=== PATIENT | female | born 1945 | race Caucasian/White ===

== ENCOUNTER 2023-03-27 06:43 | Inpatient (IN) | payer MEDICARE, SELFPAY ==
[2023-03-27] VITALS (115 sets, daily range): BP systolic 47–156; BP diastolic 35–98; PULSE 72–104; RESP 10–33; TEMP 36.4–37; O2SAT 69–99; BMI 22.1
--- NOTE | 2023-03-27 07:06 | XR_ITS ---
[facility] [place] [id number] Patient Name: SANCHEZ SAMSON MRN: [id number] date: 1945 Sex: F Assigned Patient Location: ER Current Patient Location: ED.MAIN Accession/Order Number: [id number] Exam Date: 03/27/2023 07:32 Report Date: 03/27/2023 08:30 At the request of: DIA DELAROSA Procedure: XR chest 1V EXAM: XR chest 1V , 03/27/2023 HISTORY: shortness of breath COMPARISON: Chest x-ray from 02/29/2020 TECHNIQUE: Portable AP upright x-ray of the chest. FINDINGS: Infiltrates in the right mid and lower lung, consistent with right lower lobe consolidation. Underlying COPD. Cardiac silhouette within normal limits. Mild atherosclerotic calcification of the thoracic arch. No acute osseous findings. XR/XR chest 1V IMPRESSION: Right lung consolidation predominantly in the lower lobe. Electronically authenticated by: JOLEEN CAMPOS Date: 03/27/2023 08:30
--- NOTE | 2023-03-27 07:06 | ECG_ITS ---
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
--- NOTE | 2023-03-27 07:07 | ED_ITS ---
HPI - SOB/Dyspnea General Chief Complaint: Shortness of Breath/Dyspnea Stated Complaint: sob Time Seen by Provider: 03/27/23 06:55 Source: patient Mode of arrival: Wheelchair Limitations: no limitations History of Present Illness HPI Narrative: Patient brought in by private vehicle - developed shortness of breath and cough last week. She had a home covid test that was positive and her PCP started her on paxlovid. Over the last 24 hours her shortness of breath worsened. She is coughing up thick yellowish phlegm. She denied any chest pain, tightness or pressure. No right LE swelling/edema. She has left leg amputation. She has COPD. Wears oxygen at night when she needs it . Has home inhalers - last used yesterday. Related Data Home Medications Medication Instructions Recorded Confirmed atorvastatin 20 mg tablet 20 mg PO BEDTIME 03/27/23 03/27/23 budesonide-formoterol HFA 160 2 inh inhalation Q12H 03/27/23 03/27/23 mcg-4.5 mcg/actuation aerosol inhaler (Symbicort) carvedilol 3.125 mg tablet 3.125 mg PO Q12H 03/27/23 03/27/23 clopidogrel 75 mg tablet 75 mg PO DAILY 03/27/23 03/27/23 docusate sodium 100 mg capsule 100 mg PO BID 03/27/23 03/27/23 duloxetine 60 mg capsule,delayed 60 mg PO DAILY 03/27/23 03/27/23 release gabapentin 800 mg tablet 800 mg PO TID 03/27/23 03/27/23 lisinopril 2.5 mg tablet 2.5 mg PO DAILY 03/27/23 03/27/23 nitroglycerin 0.4 mg sublingual 0.4 mg sublingual Q5M PRN chest 03/27/23 03/27/23 tablet pain oxycodone 10 mg tablet 10 mg PO PRN pain 03/27/23 pantoprazole 40 mg tablet,delayed 40 mg PO DAILY 03/27/23 03/27/23 release spironolactone 25 mg tablet 25 mg PO DAILY 03/27/23 03/27/23 Allergies Allergy/AdvReac Type Severity Reaction Status Date / Time No Known Drug Allergies Allergy Verified 03/27/23 07:02 PFSH PFS Social History Smoking status: Former smoker Exam Narrative Exam Narrative: Nurses notes and vital signs reviewed and patient is not hypoxic. afebrile General: Tachypneic Skin: Warm, dry, no pallor noted. No rash. Head: Normocephalic, atraumatic. Eye: Pupils are equal, round and EOMI. No scleral icterus. Cardiovascular: Tachcyardia Respiratory: Tachypnea with accessory muscle use and mild respiratory distress. Lungs with diffuse expiratory wheezing. Wet cough. Musculoskeletal: Left leg amputation. Right LE - normal ROM, no calf or popliteal tenderness, no lower extremity edema/swelling GI: Abdomen is soft, non-distended. Normal bowel sounds. No tenderness to palpation. No rebound, guarding, or rigidity noted. Neurological: A&O x4. No cranial nerve dysfunction observed. No truncal ataxia. Moves all extremities. Sensation intact. Psychiatric: Cooperative and interactive. Normal mood and affect. Constitutional Vital Signs, click to edit/add: Last Vital Signs Temp 97.9 F 03/27/23 06:50 Pulse 86 03/27/23 08:23 Resp 24 03/27/23 08:23 BP 143/77 H 03/27/23 08:23 Pulse Ox 93 L 03/27/23 08:23 O2 Del Method Nonrebreather 03/27/23 07:26 O2 Flow Rate 15 03/27/23 06:50 Course Vital Signs Vital signs: Vital Signs Temperature 97.9 F 03/27/23 06:50 Pulse Rate 102 H 03/27/23 06:50 Respiratory Rate 28 H 03/27/23 06:50 Blood Pressure 122/60 03/27/23 06:50 Pulse Oximetry 84 L 03/27/23 06:50 Oxygen Delivery Method Nonrebreather 03/27/23 06:50 Oxygen Delivery Flow Rate 15 03/27/23 06:50 Temperature 97.9 F 03/27/23 06:50 Pulse Rate 86 03/27/23 08:23 Respiratory Rate 24 03/27/23 08:23 Blood Pressure 143/77 H 03/27/23 08:23 Pulse Oximetry 93 L 03/27/23 08:23 Oxygen Delivery Method Nonrebreather 03/27/23 07:26 Oxygen Delivery Flow Rate 15 03/27/23 06:50 MDM - SOB/Dyspnea MDM Narrative Medical decision making narrative: Patient was placed on quality assurance monitor final and EKG obtained. Blood drawn and sent for evaluation, including blood cultures and lactate. CXR obtained. She was given duoneb therapy and suctioned. She was initially placed on vapotherm but we could not maintain good O2 sat so we switched her to BiPap. Patient tested positive for Covid. CXR revealed multifocal pneumonia. Lactate elevated. She was given IV Rocephin and IV Levaquin. Her BP dipped - I was initially cautious regarding fluid administration after I saw her CXR and waited to get her BNP back before administering 30mL/kg of NS IVF. Case discussed with Dr Spence, home mission worker for admissions, and the patient was admitted to ICU, inpatient. Patient and family informed of results, disposition and plan. Lab Data Attestation: I reviewed the patient's lab results. Labs: Lab Results 03/27/23 03/27/23 Range/Units 07:24 07:30 WBC 19.2 H (4.0-11.0) 10^3/uL RBC 3.90 L (4.20-5.40) 10^6/uL Hgb 12.7 (12.0-16.0) g/dL Hct 39.9 (36.0-48.0) % MCV 102.3 H (81.0-99.0) fL MCH 32.6 (26.7-34.0) pg MCHC 31.8 (29.9-35.2) g/dL RDW 13.0 (11.0-15.0) % Plt Count 285 (150-450) 10^3/uL MPV 10.3 (9.5-13.5) fL Seg Neuts % (Manual) 66.0 Band Neutrophils % 16.0 H (0-5) % Lymphocytes % (Manual) 7.0 L (20.5-60.0) % Monocytes % (Manual) 11.0 (1.7-12.0) % Eosinophils % (Manual) 0.0 L (0.9-7.0) % Basophils % (Manual) 0.0 L (0.2-2.0) % Neutrophils # (Manual) 12.67 H (1.4-6.5) 10^3/uL Band Neutrophils # 3.1 H (0.0-0.3) 10^3/uL Lymphocytes # (Manual) 1.34 (1.20-3.80) 10^3/uL Monocytes # (Manual) 2.11 H (0.30-0.80) 10^3/uL Eosinophils # (Manual) 0.00 (0.00-0.70) 10^3/uL Basophils # (Manual) 0.00 (0.00-0.10) 10^3/uL Sodium 130 L (136-145) mmol/L Potassium 4.5 (3.5-5.1) mmol/L Chloride 95 L (98-107) mmol/L Carbon Dioxide 23.3 (21.0-32.0) mmol/L Anion Gap 16.2 BUN 35.0 H (7.0-18.0) mg/dL Creatinine 1.33 H (0.55-1.02) mg/dL Est GFR ( Amer) 46 L (>=60) Est GFR (Non-Af Amer) 38 L (>=60) BUN/Creatinine Ratio 26.3 Glucose 120 H (74-106) mg/dL Lactate 3.0 H* (0.4-2.0) mmol/L Calcium 8.0 L (8.5-10.1) mg/dL Troponin I High Sens 11.6 (4.0-51.3) pg/mL NT-Pro-B Natriuret Pep 1102.0 (<=1800.0) pg/mL SARS-CoV-2 (PCR) Positive A (NEGATIVE) Imaging Data Chest x-ray: Radiologist's impression: Patient Name: SANCHEZ SAMSON MRN: [facility]:[id number] date: 1945 Sex: F Assigned Patient Location: ER Current Patient Location: ED.MAIN Accession/Order Number: [id number] Exam Date: 03/27/2023 07:32 Report Date: 03/27/2023 08:30 At the request of: DIA DELAROSA Procedure: XR chest 1V EXAM: XR chest 1V , 03/27/2023 HISTORY: shortness of breath COMPARISON: Chest x-ray from 02/29/2020 TECHNIQUE: Portable AP upright x-ray of the chest. FINDINGS: Infiltrates in the right mid and lower lung, consistent with right lower lobe consolidation. Underlying COPD. Cardiac silhouette within normal limits. Mild atherosclerotic calcification of the thoracic arch. No acute osseous findings. IMPRESSION: Right lung consolidation predominantly in the lower lobe. Electronically authenticated by: JOLEEN CAMPOS Date: 03/27/2023 08:30 ECG Data Attestation: I personally reviewed and interpreted this ECG as follows: Interpretation: EKG interpretation: Emergency Department physician interpretation. Normal sinus rhythm at 91bpm. Artifact present. Normal axis, normal intervals and no ST segment elevation or depression. Discharge Plan Discharge Chief Complaint: Shortness of Breath/Dyspnea Clinical Impression: Sepsis, Community acquired pneumonia, COVID Patient Disposition: Admitted As Inpatient Time of Disposition Decision: 08:01
[2023-03-27] MEDS: 0.9 % SODIUM CHLORIDE 250 ML IV.SOLN IV (07:22)
[2023-03-27] MEDS: METHYLPREDNISOLONE SOD SUCC PF 125 MG/2 ML VIAL IVP (07:22)
[2023-03-27 07:35] LABS: Hematocrit 39.9 % (36.0-48.0); Hemoglobin 12.7 g/dL (12.0-16.0); Mean Corpuscular HGB Conc 31.8 g/dL (29.9-35.2); Mean Corpuscular Hemoglobin 32.6 pg (26.7-34.0); Mean Corpuscular Volume 102.3 fL (81.0-99.0); Mean Platelet Volume 10.3 fL (9.5-13.5); Platelet Count 285 10^3/uL (150-450); White Blood Count 19.2 10^3/uL (4.0-11.0)
[2023-03-27 07:52] LABS: SARS-CoV-2 Ag POSITIVE (NEGATIVE)
[2023-03-27 07:59] LABS: Anion Gap 16.2; BUN Creatinine Ratio 26.3; Carbon Dioxide 23.3 mmol/L (21.0-32.0); Chloride 95 mmol/L (98-107); Estimated GFR (African America 46 (>=60); Estimated GFR (Non-African Ame 38 (>=60); Glucose 120 mg/dL (74-106); Potassium 4.5 mmol/L (3.5-5.1); Sodium 130 mmol/L (136-145); Troponin I High Sensitivity 11.6 pg/mL (4.0-51.3)
[2023-03-27] MEDS: IPRATROPIUM/ALBUTEROL SULFATE 3 ML AMPUL.NEB IH (08:00)
[2023-03-27 08:02] LABS: Band Neutrophils Absolute 3.1 10^3/uL (0.0-0.3); Lymphocytes Absolute Manual 1.34 10^3/uL (1.20-3.80); Monocytes Absolute Manual 2.11 10^3/uL (0.30-0.80); Segmented Neut Absolute Manual 12.67 10^3/uL (1.4-6.5)
[2023-03-27] MEDS: CEFTRIAXONE 1,000 MG in 0.9 % SODIUM CHLORIDE 50 ML 100 MG IV (08:03)
[2023-03-27] MEDS: 0.9 % SODIUM CHLORIDE 500 ML IV (08:03)
[2023-03-27] MEDS: LEVOFLOXACIN IN DEXTROSE 5 % 750 MG/150 ML IV.SOLN 100 MG IV (08:37)
[2023-03-27] MEDS: 0.9 % SODIUM CHLORIDE 1,000 ML 1000 ML IV (08:44)
[2023-03-27] MEDS: LACTATED RINGER'S SOLUTION 1,000 ML 100 ML IV ×2 (10:01→19:41)
[2023-03-27] MEDS: CARVEDILOL 3.125 MG TABLET PO (10:03)
[2023-03-27] MEDS: ENOXAPARIN SODIUM 40 MG/0.4 ML SYRINGE SUBQ (10:03)
[2023-03-27] MEDS: AZITHROMYCIN 250 MG TABLET 500 MG PO (10:03)
[2023-03-27 10:49] LABS: ABG PCO2 39.8 mmHg (35.0-45.0); Allen Test POSITIVE (POSITIVE); Base Excess ABG -5.9 mmol/L (-2.0-2.0); Fractionated Inspired Oxygen 40 %; HCO3 ABG 20.3 mmol/L (22.0-26.0); O2 Mode BIPAP; Oxygen Saturation ABG 79.4 %; PO2 ABG 46.7 mmHg (80.0-100.0); Puncture Site RR; pH ABG 7.315 (7.350-7.450)
[2023-03-27 10:50] LABS: Rate 14
--- NOTE | 2023-03-27 10:50 | RESP.RT ---
Patient placed on BIPAP after unable to maintain spo2 on Vapotherm , Patient then transported to ICU , pATIENT IS ALSO cOVID +
[2023-03-27 11:38] LABS: Lactate/Lactic Acid 1.5 mmol/L (0.4-2.0)
[2023-03-27 12:38] LABS: Glucometer 127 mg/dL (74-106)
[2023-03-27] MEDS: METHYLPREDNISOLONE SOD SUCC PF 40 MG/ML VIAL IVP ×2 (13:04→21:04)
[2023-03-27] MEDS: GABAPENTIN 400 MG CAPSULE 800 MG PO ×2 (13:05→21:03)
[2023-03-27] MEDS: OXYCODONE HCL 5 MG TABLET PO ×2 (13:52→19:38)
[2023-03-27] MEDS: ALBUTEROL SULFATE 200 PUFF/6.7 GM INHALER IH ×2 (16:30→20:22)
[2023-03-27 18:30] LABS: Glucometer 156 mg/dL (74-106)
[2023-03-27] MEDS: INSULIN ASPART 300 UNIT/3 ML PEN SUBQ ×2 (18:47→22:37)
[2023-03-27] MEDS: ACETAMINOPHEN 325 MG TABLET 650 MG PO (19:39)
[2023-03-27] MEDS: DOCUSATE SODIUM 100 MG CAPSULE PO (19:41)
[2023-03-27] MEDS: ATORVASTATIN CALCIUM 20 MG TABLET PO (21:03)
--- NOTE | 2023-03-27 23:43 | P.HP_ITS ---
H&P: HPI History of Present Illness Chief complaint: Shortness of breath/cough Narrative: 78 y o female with hx of COPD, chronic resp failure with hypoxia on 3 L O2 via NC, was diagnosed with COVID about a week ago and was started on Paxlovid by her PCP and initially felt better but later on developed worsening SOB, wheezing and came to ED for further evaluation. Patient's w/u revealed severe sepsis with acute resp failure with hypoxia for which she initially required High flow O2 but was switched over to BIPAP for increased work of breathing and hypoxia while on high flow O2. Patient was admitted to ICU and was started on IV abx for CAP, systemic steroids for COPD exacerbation/COVID PNA. When I evaluated her, she was in ICU, on BIPAP and asked me when could she be taken off of BIPAP. She appeared comfortable and in no acute distress. Review of Systems ROS Status of ROS 10 or more systems reviewed and unremarkable except as noted in history and below [facility] Medical History (Updated 03/28/23 @ 22:42 by Shaikh Jordy MD) COPD (chronic obstructive pulmonary disease) ?J44.9 - Chronic obstructive pulmonary disease, unspecified (ICD-10) HLD (hyperlipidemia) ?E78.5 - Hyperlipidemia, unspecified (ICD-10) Oxygen dependent ?Z99.81 - Dependence on supplemental oxygen (ICD-10) PAD (peripheral artery disease) ?I73.9 - Peripheral vascular disease, unspecified (ICD-10) Social History Within the past year, how often did you have a drink containing alcohol: 4 or more times a week Within the past year, how many standard drinks containing alcohol did you have on a typical day: 3 or 4 Within the past year, how often did you have six or more drinks on one occasion: weekly Total score: 5 Score interpretation: A score of 3 or more indicates drinking is likely to affect patient's safety. Smoking status: Former smoker Meds Home Medications and Allergies Home Medications Medication Instructions Recorded Confirmed Type albuterol 90 mcg/actuation aerosol 90 mcg inhalation .q 4 hours PRN 03/27/23 03/27/23 History inhaler sob aspirin 81 mg capsule 81 mg PO DAILY 03/27/23 03/27/23 History atorvastatin 20 mg tablet 20 mg PO BEDTIME 03/27/23 03/27/23 History budesonide-formoterol HFA 160 2 inh inhalation Q12H 03/27/23 03/27/23 History mcg-4.5 mcg/actuation aerosol inhaler (Symbicort) carvedilol 3.125 mg tablet 3.125 mg PO Q12H 03/27/23 03/27/23 History clopidogrel 75 mg tablet 75 mg PO DAILY 03/27/23 03/27/23 History docusate sodium 100 mg capsule 100 mg PO BID 03/27/23 03/27/23 History duloxetine 60 mg capsule,delayed 60 mg PO DAILY 03/27/23 03/27/23 History release gabapentin 800 mg tablet 800 mg PO TID 03/27/23 03/27/23 History lisinopril 2.5 mg tablet 2.5 mg PO DAILY 03/27/23 03/27/23 History nitroglycerin 0.4 mg sublingual 0.4 mg sublingual Q5M PRN chest 03/27/23 03/27/23 History tablet pain ondansetron 4 mg disintegrating 4 mg PO Q4H PRN nausea and vomiting 03/27/23 03/27/23 History tablet oxycodone 10 mg tablet 10 mg PO Q6H PRN pain 03/27/23 03/27/23 History pantoprazole 40 mg tablet,delayed 40 mg PO DAILY 03/27/23 03/27/23 History release spironolactone 25 mg tablet 25 mg PO DAILY 03/27/23 03/27/23 History therapeutic multivitamin 1 tab PO DAILY 03/27/23 03/27/23 History (Thera-Tabs tablet) tizanidine 4 mg tablet 4 mg PO TID PRN muscle spasticity 03/27/23 03/27/23 History Allergies Allergy/AdvReac Type Severity Reaction Status Date / Time No Known Drug Allergies Allergy Verified 03/27/23 07:02 Exam Constitutional Vital Signs, click to edit/add: Last Vital Signs Temp 98.0 F 03/27/23 15:00 Pulse 75 03/27/23 22:00 Resp 24 03/27/23 21:24 BP 131/57 03/27/23 18:00 Pulse Ox 97 03/27/23 22:00 O2 Del Method Nasal Cannula 12/02/23 21:24 O2 Flow Rate 6 03/27/23 21:24 FiO2 50 03/27/23 11:56 Documenting provider has reviewed patient's vital signs: yes Common normals: no apparent distress and oriented x3 General appearance: cooperative Respiratory Effort & inspection: tachypneic Auscultation: rhonchi and wheezes Other: on BIPAP. Bronc Cardio Common normals: regular rate, S1 normal heart sound and S2 normal heart sound Rate: regular rate Heart sounds: S1 normal and S2 normal GI Common normals: Normal to inspection, nondistended, normoactive bowel sounds present, soft to palpation, non-tender and no hepatosplenomegaly Palpation: soft and no hepatosplenomegaly Neuro Common normals: oriented x3, moves all extremities and no focal motor deficits Psych Common normals: mental status grossly normal, denies hallucinations, denies homicidal ideation and denies suicidal ideation Results Labs Labs: Short CBC 03/27/23 Range/Units 07:24 WBC 19.2 H (4.0-11.0) 10^3/uL Hgb 12.7 (12.0-16.0) g/dL Hct 39.9 (36.0-48.0) % Plt Count 285 (150-450) 10^3/uL BMP 03/27/23 07:24 Sodium 130 L Potassium 4.5 Chloride 95 L Carbon Dioxide 23.3 BUN 35.0 H Creatinine 1.33 H Glucose 120 H Calcium 8.0 L ABG ABG results: 03/27/23 10:45 ABG pH 7.315 L ABG pCO2 39.8 ABG pO2 46.7 L ABG HCO3 20.3 L ABG O2 Saturation 79.4 ABG Base Excess -5.9 L Assessment and Plan Assessment and Plan (1) Sepsis: Assessment and Plan: Severe sepsis - WBC >13K, HR > 90, RR> 20 due to PNA C/w IVF. F/u cultures. C/w rocpehin/azithromycin for CAPD Qualifiers: Sepsis type: sepsis due to unspecified organism Sepsis acute organ dysfunction status: with acute organ dysfunction Severe sepsis acute organ dysfunction type: acute respiratory failure Acute respiratory failure type: with hypoxia Severe sepsis shock status: without septic shock Qualified Code(s): A41.9 - Sepsis, unspecified organism; R65.20 - Severe sepsis without septic shock; J96.01 - Acute respiratory failure with hypoxia (2) Acute and chronic respiratory failure with hypoxia: Assessment and Plan: On3 L O2 via NC at baseline. Currently on BIPAP. C/w systemic steroids and IV abx for CAP Sec to COPD exacerbation, Pneumonia. Wean off O2 a tolerated. At high risk of worsening clinical status, would require close monitoring in ICU. (3) Community acquired pneumonia: Assessment and Plan: Right lower lobe infiltrate. On IV Rocephin/azithromycin F/u cultures. Qualifiers: Laterality: right Lung location: lower lobe of lung Qualified Code(s): J18.9 - Pneumonia, unspecified organism (4) COPD exacerbation: Assessment and Plan: COPD exacerbation due to CAP, post covid bacterial pna on solumedrol. c/w albuterol, mucinex. wean off o2 as tolerated. (5) COVID-19: Assessment and Plan: Recent COVID infection s/p rx with paxlovid Likely resulted in post viral bacterial pna and copd exacerbation. (6) Lactic acidosis: Assessment and Plan: due to sepsis. resolved with hydration (7) PAD (peripheral artery disease): Assessment and Plan: c/w asa, plavix and statin (8) HLD (hyperlipidemia): Assessment and Plan: c/w statin Plan Critical care time spent over 45 minutes in patient's evaluation, clinical decision making, co ordination of care. Patient critically ill, at high risk of deterioration, morbidity and mortality from COVID, CAP due to underlying COPD, advanced age.
[2023-03-28] VITALS (67 sets, daily range): BP systolic 107–151; BP diastolic 47–82; PULSE 62–122; RESP 11–27; TEMP 36.4–37.1; O2SAT 86–98
[2023-03-28] MEDS: OXYCODONE HCL 5 MG TABLET PO ×3 (01:33→20:46)
[2023-03-28] MEDS: ALBUTEROL SULFATE 200 PUFF/6.7 GM INHALER IH ×4 (05:05→21:38)
[2023-03-28 05:50] LABS: Basophils Percent Auto 0.2 % (0.2-2.0); Hematocrit 35.3 % (36.0-48.0); Hemoglobin 11.3 g/dL (12.0-16.0); Immature Granulocytes Abs Auto 0.25 10^3/uL (0.00-0.03); Immature Granulocytes Pct Auto 1.4 % (0.0-0.5); Lymphocytes Absolute Auto 0.7 10^3/uL (1.2-3.8); Mean Corpuscular Hemoglobin 32.4 pg (26.7-34.0); Mean Corpuscular Volume 101.1 fL (81.0-99.0); Mean Platelet Volume 10.6 fL (9.5-13.5); Monocytes Absolute Auto 0.8 10^3/uL (0.3-0.8); Monocytes Percent Auto 4.8 % (1.7-12.0); Neutrophils Absolute Auto 15.5 10^3/uL (1.4-6.5); Neutrophils Percent Auto 89.6 % (43.0-75.0); Platelet Count 299 10^3/uL (150-450); Red Blood Count 3.49 10^6/uL (4.20-5.40); Red Cell Distribution Width 13.2 % (11.0-15.0); White Blood Count 17.3 10^3/uL (4.0-11.0)
[2023-03-28] MEDS: METHYLPREDNISOLONE SOD SUCC PF 40 MG/ML VIAL IVP ×3 (05:51→21:16)
[2023-03-28] MEDS: GABAPENTIN 400 MG CAPSULE 800 MG PO ×3 (05:52→21:15)
[2023-03-28 06:09] LABS: Alanine Aminotransferase 28 U/L (14-59); Albumin Globulin Ratio 0.6; Albumin Level 2.3 g/dL (3.4-5.0); Alkaline Phosphatase 53 U/L (46-116); Anion Gap 11.4; Aspartate Amino Transferase 51 U/L (15-37); BUN Creatinine Ratio 21.1; Bilirubin Total 0.2 mg/dL (0.2-1.0); Calcium 8.5 mg/dL (8.5-10.1); Chloride 103 mmol/L (98-107); Estimated GFR (African America >60 (>=60); Estimated GFR (Non-African Ame >60 (>=60); Globulin 3.9 g/dL; Glucose 219 mg/dL (74-106); Potassium 4.4 mmol/L (3.5-5.1); Sodium 135 mmol/L (136-145); Total Protein 6.2 g/dL (6.4-8.2)
[2023-03-28] MEDS: LACTATED RINGER'S SOLUTION 1,000 ML 100 ML IV (07:40)
[2023-03-28] MEDS: AZITHROMYCIN 250 MG TABLET 500 MG PO (08:02)
[2023-03-28] MEDS: CEFTRIAXONE 1,000 MG in 0.9 % SODIUM CHLORIDE 50 ML 100 MG IV (08:02)
[2023-03-28] MEDS: CARVEDILOL 3.125 MG TABLET PO ×2 (08:03→20:52)
[2023-03-28] MEDS: ENOXAPARIN SODIUM 40 MG/0.4 ML SYRINGE SUBQ (08:03)
[2023-03-28] MEDS: INSULIN ASPART 300 UNIT/3 ML PEN SUBQ ×3 (08:04→21:16)
[2023-03-28] MEDS: DULOXETINE HCL 60 MG CAPSULE.DR PO (08:04)
[2023-03-28] MEDS: ASPIRIN 81 MG TAB.CHEW PO (09:32)
[2023-03-28] MEDS: CLOPIDOGREL BISULFATE 75 MG TABLET PO (09:32)
[2023-03-28] MEDS: OMEPRAZOLE 40 MG CAPSULE.DR PO (09:32)
[2023-03-28] MEDS: IPRATROPIUM BROMIDE 200 PUFF/12.9 GM INHALER IH ×3 (11:04→21:39)
--- NOTE | 2023-03-28 16:02 | RESP.RT ---
increased to 5 LPM
[2023-03-28] MEDS: ACETAMINOPHEN 325 MG TABLET 650 MG PO (20:46)
[2023-03-28] MEDS: ATORVASTATIN CALCIUM 20 MG TABLET PO (21:15)
--- NOTE | 2023-03-28 22:48 | P.IMPN_ITS ---
Progress Note: A&P Assessment and Plan (1) Sepsis: Assessment and Plan: Stable hemodynamics now. C/w IV abx. Monitor Qualifiers: Acute respiratory failure type: with hypoxia Sepsis acute organ dysfunction status: with acute organ dysfunction Sepsis type: sepsis due to unspecified organism Severe sepsis acute organ dysfunction type: acute respiratory failure Severe sepsis shock status: without septic shock Qualified Code(s): A41.9 - Sepsis, unspecified organism; R65.20 - Severe sepsis without septic shock; J96.01 - Acute respiratory failure with hypoxia (2) Acute and chronic respiratory failure with hypoxia: Assessment and Plan: Initially on BIPAP. Down to 6 L O2 C/w abx, systemic steroids and bronchodilators. (3) Community acquired pneumonia: Assessment and Plan: On Rocephine and Azithromycin. Likely pot viral bacterial PNA. Doing better today. Wean off O2 as tolerated Qualifiers: Laterality: right Lung location: lower lobe of lung Qualified Code(s): J18.9 - Pneumonia, unspecified organism (4) COPD exacerbation: Assessment and Plan: Still bronchospastic with generalized wheezing and diminished air entry. C/w systemic steroids, bronchodilators. Added PEP (5) COVID-19: Assessment and Plan: On systemic steroids. s/p paxlovid. (6) Lactic acidosis: Assessment and Plan: resolved (7) PAD (peripheral artery disease): Assessment and Plan: Stable. c/w home med (8) HLD (hyperlipidemia): Assessment and Plan: c/w statin Internal Medicine - PN: Subj Subjective Interval history: Seen and examined. Doing well. Now on 6 L O2 via NC. Still quite SOB and dyspneic but sig improved from yesterday Exam Constitutional Vital Signs, click to edit/add: Last Vital Signs Temp 98.4 F 03/28/23 22:00 Pulse 80 03/28/23 22:00 Resp 22 03/28/23 22:00 BP 111/48 L 03/28/23 22:00 Pulse Ox 94 L 03/28/23 22:00 O2 Del Method Nasal Cannula 03/28/23 22:00 O2 Flow Rate 6 03/28/23 22:00 FiO2 40 03/28/23 05:00 Documenting provider has reviewed patient's vital signs: yes Common normals: no apparent distress and oriented x3 General appearance: cooperative Respiratory Effort & inspection: tachypneic Auscultation: rhonchi and wheezes Cardio Common normals: regular rate, S1 normal heart sound and S2 normal heart sound Rate: regular rate Heart sounds: S1 normal and S2 normal Internal Medicine - PN: Obj Da Labs Labs: Laboratory Results - last 24 hr 03/28/23 05:28 WBC 17.3 H RBC 3.49 L Hgb 11.3 L Hct 35.3 L MCV 101.1 H MCH 32.4 MCHC 32.0 RDW 13.2 Plt Count 299 MPV 10.6 Neut % (Auto) 89.6 H Lymph % (Auto) 4.0 L [place] % (Auto) 4.8 Eos % (Auto) 0.0 L Baso % (Auto) 0.2 Neut # (Auto) 15.5 H Lymph # (Auto) 0.7 L [place] # (Auto) 0.8 Eos # (Auto) 0.0 Baso # (Auto) 0.0 Abs Immat Gran (auto) 0.25 H Imm/Tot Granulo (auto) 1.4 H Sodium 135 L Potassium 4.4 Chloride 103 Carbon Dioxide 25.0 Anion Gap 11.4 BUN 15.0 Creatinine 0.71 Est GFR ( Amer) >60 Est GFR (Non-Af Amer) >60 BUN/Creatinine Ratio 21.1 Glucose 219 H Calcium 8.5 Total Bilirubin 0.2 AST 51 H ALT 28 Alkaline Phosphatase 53 Total Protein 6.2 L Albumin 2.3 L Globulin 3.9 Albumin/Globulin Ratio 0.6 Urinary Catheter Management Urinary Catheter Management Urethral: Cath placed during this visit: yes Urethral indwelling: No Reason for continuing: measure accurate output Insertion date: 03/27/23 Insertion time: 09:57
[2023-03-28] MEDS: LORAZEPAM 1 MG TABLET PO (23:04)
[2023-03-29] VITALS (137 sets, daily range): BP systolic 106–155; BP diastolic 61–90; PULSE 65–168; RESP 8–26; TEMP 36.4–37.1; O2SAT 73–98
--- NOTE | 2023-03-29 02:31 | ECG_ITS ---
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
[2023-03-29] MEDS: LORAZEPAM 1 MG TABLET PO ×5 (03:12→22:24)
[2023-03-29] MEDS: IPRATROPIUM BROMIDE 200 PUFF/12.9 GM INHALER IH ×4 (04:53→20:40)
[2023-03-29] MEDS: ALBUTEROL SULFATE 200 PUFF/6.7 GM INHALER IH ×4 (04:53→20:40)
[2023-03-29 04:56] LABS: Basophils Percent Auto 0.2 % (0.2-2.0); Hematocrit 35.4 % (36.0-48.0); Hemoglobin 11.5 g/dL (12.0-16.0); Immature Granulocytes Abs Auto 0.09 10^3/uL (0.00-0.03); Immature Granulocytes Pct Auto 0.6 % (0.0-0.5); Lymphocytes Absolute Auto 0.6 10^3/uL (1.2-3.8); Lymphocytes Percent Auto 4.2 % (20.5-60.0); Mean Corpuscular HGB Conc 32.5 g/dL (29.9-35.2); Mean Corpuscular Hemoglobin 32.6 pg (26.7-34.0); Mean Corpuscular Volume 100.3 fL (81.0-99.0); Mean Platelet Volume 10.8 fL (9.5-13.5); Monocytes Absolute Auto 0.5 10^3/uL (0.3-0.8); Monocytes Percent Auto 3.3 % (1.7-12.0); Neutrophils Absolute Auto 13.4 10^3/uL (1.4-6.5); Neutrophils Percent Auto 91.7 % (43.0-75.0); Platelet Count 348 10^3/uL (150-450); Red Blood Count 3.53 10^6/uL (4.20-5.40); Red Cell Distribution Width 13.2 % (11.0-15.0); White Blood Count 14.6 10^3/uL (4.0-11.0)
[2023-03-29 05:17] LABS: Alanine Aminotransferase 38 U/L (14-59); Albumin Globulin Ratio 0.6; Albumin Level 2.2 g/dL (3.4-5.0); Alkaline Phosphatase 56 U/L (46-116); Anion Gap 12.5; Aspartate Amino Transferase 27 U/L (15-37); BUN Creatinine Ratio 23.6; Bilirubin Total 0.2 mg/dL (0.2-1.0); Calcium 8.4 mg/dL (8.5-10.1); Carbon Dioxide 25.6 mmol/L (21.0-32.0); Chloride 102 mmol/L (98-107); Estimated GFR (African America >60 (>=60); Estimated GFR (Non-African Ame >60 (>=60); Glucose 191 mg/dL (74-106); Potassium 4.1 mmol/L (3.5-5.1); Sodium 136 mmol/L (136-145); Total Protein 6.2 g/dL (6.4-8.2)
[2023-03-29] MEDS: GABAPENTIN 400 MG CAPSULE 800 MG PO ×3 (06:11→21:23)
[2023-03-29] MEDS: METHYLPREDNISOLONE SOD SUCC PF 40 MG/ML VIAL IVP ×3 (06:11→22:24)
--- NOTE | 2023-03-29 06:48 | CA_ITS ---
Patient Name: SANCHEZ SAMSON MR#: [id number] : 1945 Exam Date: 03/29/2023 Ordering Doctor: SHAIKH Giselle [place] . ECHOCARDIOGRAM REPORT PROCEDURE: CA ECHO LIMITED INDICATIONS: new onset Afib, Covid+, COPD, pneumonia, sepsis COMPARISON: None. DESCRIPTION: Limited ECHOCARDIOGRAM Real-time transthoracic echocardiography with 2D and M-mode performed. QUALITY: Technical quality was good. Limited echocardiogram due to Covid+ LEFT VENTRICLE: Normal chamber size. Normal left ventricular wall thickness. LV EF: Global left ventricular systolic function is normal; visually estimated ejection fraction is 55 to 60%. Abnormal septal motion likely related to underlying bundle branch block. LEFT ATRIUM: Severe dilatation. RIGHT ATRIUM: Moderate dilatation. RIGHT VENTRICLE: Mild dilatation. Systolic function appears reduced. TRICUSPID VALVE: Normal mobility and thickness. MITRAL VALVE: Normal mobility and thickness. There is no mitral annular calcification. AORTIC VALVE: Normal trileaflet appearance. Thickened aortic valve. Normal leaflet mobility. AORTIC ROOT: Not well-visualized. PULMONIC VALVE: Normal thickness and mobility. PERICARDIUM: Anterior free space; trivial effusion versus fat pad. IVC: IVC is normal in size with no collapse. CONCLUSION: 1. Global left ventricular systolic function is normal; visually estimated ejection fraction 55 to 60% 2. The right ventricle is mildly dilated with reduced systolic function 3. Biatrial enlargement 4. Anterior free space; trivial effusion versus fat pad A limited echocardiogram was performed Adult Echocardiography Procedure Report Left Ventricle LVEDD (3.7 - 5.6 cm): 4.19 cm LVESD (2.2 - 4.0 cm): 3.35 cm LVIVS thickness (0.6 - 1.2 cm): 0.89 cm LVPW thickness (0.5 - 1.0 cm): 0.94 cm LVOT Diameter 2.09 cm Left Atrium LA Volume Index (2D A2C): 48.47 ml/m2 Left Atrium Systolic Dimension: 3.06 cm Mitral Valve Right Ventricle Aorta AO Root Diam: 2.56 cm Aortic Valve Tricuspid Valve Pulmonic Valve Right Atrium Right Atrium Systolic Pressure: 61.59 ml, 61.59 ml Dictated by: Guido Ny M.D. on 03/30/2023 at 08:58 Approved by: Guido Ny M.D. on 03/30/2023 at 09:00
--- NOTE | 2023-03-29 07:15 | XR_ITS ---
The [address] [address] Patient Name: SANCHEZ SAMSON MRN: [facility]:[id number] date: 1945 Sex: F Assigned Patient Location: ICU Current Patient Location: ICU Accession/Order Number: [id number] Exam Date: 03/29/2023 07:10 Report Date: 03/29/2023 07:54 At the request of: SHAIKH VINNIE Procedure: XR chest 1V EXAM: XR chest 1V HISTORY: sob COMPARISON: Chest study dated 03/27/2023 TECHNIQUE: AP view of the chest was obtained with portable technique at 0640 hours. FINDINGS: Heart and mediastinal contours are unremarkable in appearance. [id number] patchy density in the right mid and lower lung field regions compatible with infiltrate mild to moderately decreased compared to the prior exam. Likely mild atelectatic and/or minimal infiltrative changes in the left mid and lower lung field similar to the prior study. No obvious pneumothorax. Generalized COPD. Slight convexity of the dorsal spine to the right. Postoperative clips at the right neck level. XR/XR chest 1V IMPRESSION: COPD. Infiltrative changes on the right mild to moderately decreased compared to the prior exam. Mild atelectatic and/or minimal infiltrative changes in the left lower lung field similar to the prior study. Electronically authenticated by: TRESA GUILLAUME Date: 03/29/2023 07:54
[2023-03-29 07:44] LABS: Glucometer 210 mg/dL (74-106)
[2023-03-29] MEDS: ASPIRIN 81 MG TAB.CHEW PO (08:46)
[2023-03-29] MEDS: CARVEDILOL 12.5 MG TABLET PO ×2 (08:46→21:23)
[2023-03-29] MEDS: AZITHROMYCIN 250 MG TABLET 500 MG PO (08:46)
[2023-03-29] MEDS: OMEPRAZOLE 40 MG CAPSULE.DR PO (08:46)
[2023-03-29] MEDS: CLOPIDOGREL BISULFATE 75 MG TABLET PO (08:47)
[2023-03-29] MEDS: DULOXETINE HCL 60 MG CAPSULE.DR PO (08:47)
[2023-03-29] MEDS: INSULIN ASPART 300 UNIT/3 ML PEN SUBQ (08:48)
[2023-03-29] MEDS: ENOXAPARIN SODIUM 40 MG/0.4 ML SYRINGE SUBQ (08:49)
[2023-03-29] MEDS: CEFTRIAXONE 1,000 MG in 0.9 % SODIUM CHLORIDE 50 ML 100 MG IV (08:49)
--- NOTE | 2023-03-29 11:38 | CM.NOTE ---
Rounds made with Dr. Spence. No plan for discharge today. Will continue to monitor.
--- NOTE | 2023-03-29 11:40 | PM.IMPN1 ---
Progress Note: A&P Assessment and Plan (1) New onset a-fib: Assessment and Plan: Overnight, went into Afib. Rate remained controlled. No prior hx of Afib 2D ECHO ordered. Increased coreg to 12.5 q12 Previously she was on 3.25 mg Poor candidate for AC given that she has an AKA, and drinks quite heavily at her age Will address this tomorrow with patient once she is not in alcohol withdrawal (2) Alcohol withdrawal: Assessment and Plan: Drinks 4-6 beers daily. Last drink on the day of admission. Developed alcohol withdrawal syndrome with confusion, disorientation, agitation, anxiety and started on CIWA protocol. On PO and IV ativan PO ativan is q6 scheduled. (3) Sepsis: Assessment and Plan: Stable hemodynamics . C/w IV abx for bacterial PNA. Monitor Qualifiers: Acute respiratory failure type: with hypoxia Sepsis acute organ dysfunction status: with acute organ dysfunction Sepsis type: sepsis due to unspecified organism Severe sepsis acute organ dysfunction type: acute respiratory failure Severe sepsis shock status: without septic shock Qualified Code(s): A41.9 - Sepsis, unspecified organism; R65.20 - Severe sepsis without septic shock; J96.01 - Acute respiratory failure with hypoxia (4) Acute and chronic respiratory failure with hypoxia: Assessment and Plan: Initially on BIPAP. Down to 6 L O2 C/w abx, systemic steroids and bronchodilators. (5) Community acquired pneumonia: Assessment and Plan: On Rocephine and Azithromycin. Likely pot viral bacterial PNA. Doing well from resp pov. Wean off O2 as tolerated CXR appears improved from before. Qualifiers: Laterality: right Lung location: lower lobe of lung Qualified Code(s): J18.9 - Pneumonia, unspecified organism (6) COPD exacerbation: Assessment and Plan: Still bronchospastic with generalized wheezing and diminished air entry. Improved from before C/w systemic steroids, bronchodilators. (7) COVID-19: Assessment and Plan: On systemic steroids. s/p paxlovid. (8) Lactic acidosis: Assessment and Plan: resolved (9) PAD (peripheral artery disease): Assessment and Plan: Stable. c/w home med Prior hx of revascularization years ago on left side. (10) HLD (hyperlipidemia): Assessment and Plan: c/w statin Internal Medicine - PN: Subj Subjective Interval history: Seen and examined. Overnight, her rhythm changed to Afib but remained rate controlled and then reverted to NSR. Patent also started to exhibit signs and symptoms of alcohol withdrawal and was started on CIWA protocol along with PO and IV ativan for her withdrawal symptoms She is currently on 6 L O2 via NC. Reports feeling tired, achy all over along with feeling anxious and tremulous. Exam Constitutional Vital Signs, click to edit/add: Last Vital Signs Temp 97.6 F 03/29/23 07:44 Pulse 91 H 03/29/23 10:00 Resp 15 03/29/23 10:00 BP 128/90 03/29/23 07:44 Pulse Ox 91 L 03/29/23 11:17 O2 Del Method Nasal Cannula 03/29/23 04:53 O2 Flow Rate 6 03/29/23 11:17 FiO2 40 03/28/23 05:00 Documenting provider has reviewed patient's vital signs: yes Common normals: no apparent distress and oriented x3 General appearance: cooperative, ill appearing and frail appearing Respiratory Effort & inspection: tachypneic Auscultation: rhonchi and wheezes Cardio Common normals: regular rate, S1 normal heart sound and S2 normal heart sound Rate: regular rate Heart sounds: S1 normal and S2 normal Extremity General: other findings (left AKA) Neuro Common normals: oriented x3, moves all extremities and no focal motor deficits Other: CIWA ABOUT 4-6 But she had just received Ativan an hour ago when I saw her. Psych Common normals: mental status grossly normal, cooperative, denies homicidal ideation and denies suicidal ideation Internal Medicine - PN: Obj Da Labs Labs: Laboratory Results - last 24 hr 03/29/23 03/29/23 03:51 07:42 WBC 14.6 H RBC 3.53 L Hgb 11.5 L Hct 35.4 L MCV 100.3 H MCH 32.6 MCHC 32.5 RDW 13.2 Plt Count 348 MPV 10.8 Neut % (Auto) 91.7 H Lymph % (Auto) 4.2 L [place] % (Auto) 3.3 Eos % (Auto) 0.0 L Baso % (Auto) 0.2 Neut # (Auto) 13.4 H Lymph # (Auto) 0.6 L [place] # (Auto) 0.5 Eos # (Auto) 0.0 Baso # (Auto) 0.0 Abs Immat Gran (auto) 0.09 H Imm/Tot Granulo (auto) 0.6 H Sodium 136 Potassium 4.1 Chloride 102 Carbon Dioxide 25.6 Anion Gap 12.5 BUN 17.0 Creatinine 0.72 Est GFR ( Amer) >60 Est GFR (Non-Af Amer) >60 BUN/Creatinine Ratio 23.6 Glucose 191 H Calcium 8.4 L Total Bilirubin 0.2 AST 27 ALT 38 Alkaline Phosphatase 56 Total Protein 6.2 L Albumin 2.2 L Globulin 4.0 Albumin/Globulin Ratio 0.6 POC Glucose 210 H Urinary Catheter Management Urinary Catheter Management Urethral: Cath placed during this visit: yes Urethral indwelling: No Reason for continuing: ICU pt on diuretics Insertion date: 03/27/23 Insertion time: 09:57
--- NOTE | 2023-03-29 12:03 | PT.DAILY ---
Physical Therapy Daily Note PT Daily Note/Assess Start: 03/29/23 12:00 Freq: Status: Active Protocol: Document 03/29/23 12:00 LÁZAROJANNETHVICKI (Rec: 03/29/23 12:02 [facility] [id number][facility] Physical Therapy Daily Note/Assessment Time In/Time Out Time In 10:05 Time Out 10:15 Pain In Pain N/A Pain Out Pain N/A Subjective Subjective Pt sleeping in recliner upon arrival. Easily aroused. Agrees to PT. Therapeutic Exercise Time Therapeutic Exercise Minutes (minutes) 3 Therapeutic Exercise Units 0 Therapeutic Exercise Treatment Therapeutic Exercise Treatment Seated R LE strengthening ex 10x ea while in BS chair. Therapeutic Activity Time Therapeutic Activity Minutes (minutes) 5 Therapeutic Activity Units 1 Therapeutic Activity Treatment Chair Transfer Ability Contact Guard Assist Therapeutic Activity Comments Sit>stand to RW CGA 3x from BS chair with increased time to complete. On third attempt pt remains standing for 2 min to build standing tolerance. Pt requires CGA for this as she does not feel steady and demonstrates anterior to posterior postural sway. Returned to BS chair with feet elevated and back reclined. Call light within reach and needs met. Total Physical Therapy Time Total Therapy Minutes 8 Total Physical Therapy Units 1 Summary Daily Note Summary Improved standing tolerance to 2 min. Fatigued with this - Spo2 drops to 85% with activity today and nursing is notified.
[2023-03-29] MEDS: DIAZEPAM 5 MG/ML - 2 ML INJ SYRINGE IV (13:53)
--- NOTE | 2023-03-29 16:14 | CM.NOTE ---
RN unable to obtain IMM completion over the weekend. Pt now sedated with valium. Called son Alessandro Reid to go over Important Message From Medicare. Son verbalizes understanding and consents to signing form. Original given to pt and copy placed on pt's chart.
[2023-03-29] MEDS: ATORVASTATIN CALCIUM 20 MG TABLET PO (21:23)
[2023-03-30] VITALS (73 sets, daily range): BP systolic 106–150; BP diastolic 67–98; PULSE 77–113; RESP 14–25; TEMP 36.3–36.8; O2SAT 69–110
[2023-03-30] MEDS: ALBUTEROL SULFATE 200 PUFF/6.7 GM INHALER IH ×4 (04:15→20:03)
[2023-03-30] MEDS: IPRATROPIUM BROMIDE 200 PUFF/12.9 GM INHALER IH ×4 (04:15→20:04)
[2023-03-30] MEDS: LORAZEPAM 1 MG TABLET PO ×2 (05:25→14:57)
[2023-03-30] MEDS: GABAPENTIN 400 MG CAPSULE 800 MG PO (05:25)
[2023-03-30] MEDS: METHYLPREDNISOLONE SOD SUCC PF 40 MG/ML VIAL IVP ×3 (06:25→22:28)
[2023-03-30 06:34] LABS: Aspartate Amino Transferase 14 U/L (15-37); BUN Creatinine Ratio 27.8; Bilirubin Total 0.3 mg/dL (0.2-1.0); Calcium 7.9 mg/dL (8.5-10.1); Carbon Dioxide 28.2 mmol/L (21.0-32.0); Chloride 103 mmol/L (98-107); Estimated GFR (African America >60 (>=60); Estimated GFR (Non-African Ame >60 (>=60); Glucose 185 mg/dL (74-106); Potassium 4.2 mmol/L (3.5-5.1); Sodium 138 mmol/L (136-145)
[2023-03-30 06:35] LABS: Alanine Aminotransferase 34 U/L (14-59); Albumin Globulin Ratio 0.6; Albumin Level 2.2 g/dL (3.4-5.0); Alkaline Phosphatase 53 U/L (46-116); Globulin 3.8 g/dL
[2023-03-30 06:41] LABS: Basophils Percent Auto 0.2 % (0.2-2.0); Hematocrit 37.6 % (36.0-48.0); Hemoglobin 12.1 g/dL (12.0-16.0); Mean Corpuscular HGB Conc 32.2 g/dL (29.9-35.2); Mean Corpuscular Hemoglobin 32.3 pg (26.7-34.0); Mean Corpuscular Volume 100.3 fL (81.0-99.0); Mean Platelet Volume 10.5 fL (9.5-13.5); Monocytes Percent Auto 4.9 % (1.7-12.0); Neutrophils Percent Auto 87.2 % (43.0-75.0); Platelet Count 417 10^3/uL (150-450); Red Blood Count 3.75 10^6/uL (4.20-5.40); Red Cell Distribution Width 13.4 % (11.0-15.0); White Blood Count 9.7 10^3/uL (4.0-11.0)
[2023-03-30 06:42] LABS: Immature Granulocytes Abs Auto 0.07 10^3/uL (0.00-0.03); Immature Granulocytes Pct Auto 0.7 % (0.0-0.5); Lymphocytes Absolute Auto 0.7 10^3/uL (1.2-3.8); Monocytes Absolute Auto 0.5 10^3/uL (0.3-0.8); Neutrophils Absolute Auto 8.5 10^3/uL (1.4-6.5)
[2023-03-30] MEDS: CEFTRIAXONE 1,000 MG in 0.9 % SODIUM CHLORIDE 50 ML 100 MG IV (08:18)
[2023-03-30] MEDS: DULOXETINE HCL 60 MG CAPSULE.DR PO (08:19)
[2023-03-30] MEDS: ASPIRIN 81 MG TAB.CHEW PO (08:19)
[2023-03-30] MEDS: ENOXAPARIN SODIUM 40 MG/0.4 ML SYRINGE SUBQ (08:19)
[2023-03-30] MEDS: CLOPIDOGREL BISULFATE 75 MG TABLET PO (08:19)
[2023-03-30] MEDS: CARVEDILOL 12.5 MG TABLET PO ×2 (08:19→22:28)
[2023-03-30] MEDS: OMEPRAZOLE 40 MG CAPSULE.DR PO (08:19)
[2023-03-30] MEDS: DIAZEPAM 5 MG/ML - 2 ML INJ SYRINGE IV (08:19)
[2023-03-30] MEDS: AZITHROMYCIN 250 MG TABLET 500 MG PO (08:19)
[2023-03-30] MEDS: INSULIN ASPART 300 UNIT/3 ML PEN SUBQ ×3 (08:21→22:28)
--- NOTE | 2023-03-30 10:46 | CM.NOTE ---
Rounds made with Dr. Spence, pt having hallucinations. No discharge today.
--- NOTE | 2023-03-30 11:09 | P.IMPN_ITS ---
Progress Note: A&P Assessment and Plan (1) New onset a-fib: Assessment and Plan: New onset Afib. Reverted to NSR Limited 2D ECHO normal LVEF, no sig valvular pathology. . On coreg 12.5 q12 Previously she was on 3.25 mg Poor candidate for AC given that she has an AKA, and drinks quite heavily at her age (2) Alcohol withdrawal: Assessment and Plan: Drinks 4-6 beers daily. Last drink on the day of admission. Has alcohol w ithdrawal syndrome with confusion, disorientation, agitation, anxiety and started on CIWA protocol. On PO and IV ativan Check ammonia and ABG along with CT head to make sure there is no other underly ing medical problem contributing to her mental status Qualifiers: Complication of substance-induced condition: with delirium Qualified Code(s): F10.931 - Alcohol use, unspecified with withdrawal delirium (3) Sepsis: Assessment and Plan: Stable hemodynamics . C/w IV abx for bacterial PNA. Monitor Qualifiers: Acute respiratory failure type: with hypoxia Sepsis acute organ dysfunction status: with acute organ dysfunction Sepsis type: sepsis due to unspecified organism Severe sepsis acute organ dysfunction type: acute respiratory failure Severe sepsis shock status: without septic shock Qualified Code(s): A41.9 - Sepsis, unspecified organism; R65.20 - Severe sepsis without septic shock; J96.01 - Acute respiratory failure with hypoxia (4) Acute and chronic respiratory failure with hypoxia: Assessment and Plan: Initially on BIPAP. Down to 3 L O2. Improving from resp pov C/w abx, systemic steroids and bronchodilators. (5) Community acquired pneumonia: Assessment and Plan: On Rocephine and Azithromycin. Likely pot viral bacterial PNA. Doing well from resp pov. back to baseline CXR appears improved from before. Qualifiers: Laterality: right Lung location: lower lobe of lung Qualified Code(s): J18.9 - Pneumonia, unspecified organism (6) COPD exacerbation: Assessment and Plan: Still bronchospastic with generalized wheezing and diminished air entry. Improved from before C/w systemic steroids, bronchodilators. (7) COVID-19: Assessment and Plan: On systemic steroids. s/p paxlovid. (8) Lactic acidosis: Assessment and Plan: resolved (9) PAD (peripheral artery disease): Assessment and Plan: Stable. c/w home med Prior hx of revascularization years ago on left side. (10) HLD (hyperlipidemia): Assessment and Plan: c/w statin Qualifiers: Hyperlipidemia type: mixed hyperlipidemia Qualified Code(s): E78.2 - Mixed hyperlipidemia Internal Medicine - PN: Subj Subjective Interval history: Seen and examined. Doing well from respiratory point of view. She is very confused, hallucinating from alcohol withdrawal. Exam Constitutional Vital Signs, click to edit/add: Last Vital Signs Temp 97.4 F L 03/30/23 07:20 Pulse 95 H 03/30/23 10:40 Resp 17 03/30/23 10:40 BP 150/98 H 03/30/23 07:20 Pulse Ox 93 L 03/30/23 10:56 O2 Del Method Nasal Cannula 03/30/23 10:56 O2 Flow Rate 3 03/30/23 10:56 FiO2 40 03/28/23 05:00 Documenting provider has reviewed patient's vital signs: yes Common normals: no apparent distress General appearance: anxious, ill appearing and frail appearing Respiratory Common normals: normal respiratory effort and no use of accessory muscles Auscultation: rhonchi, wheezes and diminished lung sounds Cardio Common normals: regular rate, S1 normal heart sound and S2 normal heart sound Rate: regular rate Heart sounds: S1 normal and S2 normal Extremity General: other findings (left AKA) Neuro Common normals: moves all extremities and no focal motor deficits Sensorium/orientation: fluctuating sensorium Other: CIWA ABOUT 4-6 But she had just received Ativan an hour ago when I saw her. Psych Speech: normal speech Mood and affect: anxious Thought process: confused Thought content: hallucination(s) Insight: poor Judgement: poor Internal Medicine - PN: Obj Da Labs Labs: Laboratory Results - last 24 hr 03/30/23 04:06 WBC 9.7 RBC 3.75 L Hgb 12.1 Hct 37.6 MCV 100.3 H MCH 32.3 MCHC 32.2 RDW 13.4 Plt Count 417 MPV 10.5 Neut % (Auto) 87.2 H Lymph % (Auto) 7.0 L [place] % (Auto) 4.9 Eos % (Auto) 0.0 L Baso % (Auto) 0.2 Neut # (Auto) 8.5 H Lymph # (Auto) 0.7 L [place] # (Auto) 0.5 Eos # (Auto) 0.0 Baso # (Auto) 0.0 Abs Immat Gran (auto) 0.07 H Imm/Tot Granulo (auto) 0.7 H Sodium 138 Potassium 4.2 Chloride 103 Carbon Dioxide 28.2 Anion Gap 11.0 BUN 20.0 H Creatinine 0.72 Est GFR ( Amer) >60 Est GFR (Non-Af Amer) >60 BUN/Creatinine Ratio 27.8 Glucose 185 H Calcium 7.9 L Total Bilirubin 0.3 AST 14 L ALT 34 Alkaline Phosphatase 53 Total Protein 6.0 L Albumin 2.2 L Globulin 3.8 Albumin/Globulin Ratio 0.6 Urinary Catheter Management Urinary Catheter Management Urethral: Cath placed during this visit: yes Urethral indwelling: No Reason for continuing: measure accurate output Insertion date: 03/27/23 Insertion time: 09:57
--- NOTE | 2023-03-30 11:14 | CT_ITS ---
The [address] [address] Patient Name: SANCHEZ SAMSON MRN: [facility]:[id number] date: 1945 Sex: F Assigned Patient Location: [place] Current Patient Location: [place] Accession/Order Number: [id number] Exam Date: 03/30/2023 12:17 Report Date: 03/30/2023 12:48 At the request of: SHAIKH VINNIE Procedure: CT head/brain wo con EXAM: CT head/brain wo con HISTORY: confusion COMPARISON: None TECHNIQUE: CT head study was performed without the use of intravenous contrast. Multiple axial images were obtained. Reformatted coronal and sagittal images were obtained and reviewed. FINDINGS: Mild to moderate generalized cerebral atrophy. No evidence of mass effect or midline shift. No acute intracranial hemorrhage is identified. No evidence of focal mass lesion is seen. Small basal ganglia calcification on the left with suggestion of small faint basal ganglia calcification on the right. Areas of decreased attenuation in the white matter compatible with chronic ischemic changes. Calvarium appears grossly intact. Carotid artery calcifications are noted bilaterally. Visualized mastoid air cells appear grossly unremarkable as do the intraorbital regions. CT/CT head/brain wo con IMPRESSION: CT head study demonstrates atrophy and white matter changes as described. No evidence of acute bleed or focal mass. No evidence of skull fracture. Electronically authenticated by: TRESA GUILLAUME Date: 03/30/2023 12:48
[2023-03-30 11:44] LABS: ABG PCO2 39.3 mmHg (35.0-45.0); Allen Test POSITIVE (POSITIVE); Base Excess ABG 2.3 mmol/L (-2.0-2.0); HCO3 ABG 26.5 mmol/L (22.0-26.0); PO2 ABG 67.3 mmHg (80.0-100.0); pH ABG 7.437 (7.350-7.450)
[2023-03-30 11:45] LABS: Liters per Minute 3; O2 Mode NC; Puncture Site LR
[2023-03-30 12:10] LABS: Ammonia 22 umol/L (11-32)
--- NOTE | 2023-03-30 12:41 | REH.PTDLY ---
Physical Therapy Daily Note PT Daily Note/Assess Start: 03/29/23 12:00 Freq: Status: Active Protocol: Document 03/30/23 11:45 KINGS (Rec: 03/30/23 12:41 [id number] Physical Therapy Daily Note/Assessment Time In 11:27 Time Out 11:45 Pain Level 0 Pain Level 0 Subjective Pt in bed upon arrival, states she will try to get into chair. Therapeutic Exercise Minutes (minutes) 8 Therapeutic Exercise Units 1 Therapeutic Exercise Treatment Instructed in supine R LE AP, SLR, heel slides, and abd slides 10x ea Therapeutic Activity Minutes (minutes) 7 Therapeutic Activity Units 0 Bed Mobility Ability Standby Assistance Chair Transfer Ability Contact Guard Assist Therapeutic Activity Comments Pt able to transfer from supine to sit SBA. Pt performs stand pivot transfer on R LE CGA with chair being close to bed and pt grabbing arms on chair to pull herself over. Pt up in chair with labs being drawn post rx. Total Therapy Minutes 15 Total Physical Therapy Units 1 Daily Note Summary Pt does well with transfers when chair is close by, CGA for safety is all that is given. Strengthening exs for R LE to ease transfers and standing tolerance.
[2023-03-30] MEDS: GABAPENTIN 300 MG CAPSULE 600 MG PO ×2 (15:03→22:28)
--- NOTE | 2023-03-30 16:02 | RESP.RT ---
repositioned and increased from 3 LPM to 4 LPM NC
--- NOTE | 2023-03-30 16:07 | RESP.RT ---
increased to 5 LPM
[2023-03-30] MEDS: ATORVASTATIN CALCIUM 20 MG TABLET PO (22:28)
[2023-03-31] VITALS (21 sets, daily range): BP systolic 99–143; BP diastolic 63–85; PULSE 76–105; RESP 18–20; TEMP 36.4–36.7; O2SAT 78–97
[2023-03-31] MEDS: ALBUTEROL SULFATE 200 PUFF/6.7 GM INHALER IH ×4 (04:00→20:27)
[2023-03-31] MEDS: IPRATROPIUM BROMIDE 200 PUFF/12.9 GM INHALER IH ×4 (04:01→20:27)
[2023-03-31] MEDS: GABAPENTIN 300 MG CAPSULE 600 MG PO ×3 (05:06→21:49)
[2023-03-31] MEDS: METHYLPREDNISOLONE SOD SUCC PF 40 MG/ML VIAL IVP ×3 (05:06→21:49)
--- NOTE | 2023-03-31 05:18 | PC.NURSE ---
when RN rounding on patient, pt had supplemental oxygen off, her spo2 was 78% on room air. RN placed the nasal cannula back in place and patient increased to 90% on 5 L/min
[2023-03-31 05:21] LABS: Basophils Percent Auto 0.2 % (0.2-2.0); Hematocrit 40.4 % (36.0-48.0); Immature Granulocytes Pct Auto 1.1 % (0.0-0.5); Lymphocytes Absolute Auto 0.6 10^3/uL (1.2-3.8); Mean Corpuscular HGB Conc 32.2 g/dL (29.9-35.2); Mean Corpuscular Hemoglobin 32.7 pg (26.7-34.0); Mean Corpuscular Volume 101.8 fL (81.0-99.0); Monocytes Absolute Auto 0.4 10^3/uL (0.3-0.8); Monocytes Percent Auto 4.3 % (1.7-12.0); Neutrophils Percent Auto 87.4 % (43.0-75.0); Platelet Count 438 10^3/uL (150-450); Red Blood Count 3.97 10^6/uL (4.20-5.40); Red Cell Distribution Width 13.2 % (11.0-15.0); White Blood Count 9.1 10^3/uL (4.0-11.0)
[2023-03-31 05:36] LABS: Alanine Aminotransferase 31 U/L (14-59); Albumin Globulin Ratio 0.6; Albumin Level 2.2 g/dL (3.4-5.0); Alkaline Phosphatase 51 U/L (46-116); Anion Gap 11.7; Aspartate Amino Transferase 12 U/L (15-37); BUN Creatinine Ratio 35.6; Bilirubin Total 0.3 mg/dL (0.2-1.0); Calcium 7.9 mg/dL (8.5-10.1); Carbon Dioxide 25.5 mmol/L (21.0-32.0); Chloride 103 mmol/L (98-107); Estimated GFR (African America >60 (>=60); Estimated GFR (Non-African Ame >60 (>=60); Globulin 3.8 g/dL; Glucose 198 mg/dL (74-106); Potassium 4.2 mmol/L (3.5-5.1); Sodium 136 mmol/L (136-145)
--- NOTE | 2023-03-31 07:20 | XR_ITS ---
[address] [address] Patient Name: SANCHEZ SAMSON MRN: [id number] date: 1945 Sex: F Assigned Patient Location: [place] Current Patient Location: [place] Accession/Order Number: [id number] Exam Date: 03/31/2023 07:45 Report Date: 03/31/2023 09:47 At the request of: SHAIKH VINNIE Procedure: XR chest 1V EXAM: XR chest 1V HISTORY: SOB COMPARISON: 03/29/2023 TECHNIQUE: AP view of the chest. Findings/impression: No significant change from the prior exam. Probable congestion with edema and/or multifocal pneumonia. No pneumothorax. Trace bilateral pleural effusions. Stable osseous structures. Electronically authenticated by: ROBERT OMALLEY Date: 03/31/2023 09:47
[2023-03-31] MEDS: LACTOSE -REDUCED (ENSURE ORIGINAL 237 ML LIQUID) PO (09:51)
[2023-03-31] MEDS: CARVEDILOL 12.5 MG TABLET PO ×2 (09:51→21:49)
[2023-03-31] MEDS: CLOPIDOGREL BISULFATE 75 MG TABLET PO (09:51)
[2023-03-31] MEDS: ASPIRIN 81 MG TAB.CHEW PO (09:51)
[2023-03-31] MEDS: OMEPRAZOLE 40 MG CAPSULE.DR PO (09:51)
[2023-03-31] MEDS: OXYCODONE HCL 5 MG TABLET PO (09:51)
[2023-03-31] MEDS: DULOXETINE HCL 60 MG CAPSULE.DR PO (09:51)
[2023-03-31] MEDS: AZITHROMYCIN 250 MG TABLET 500 MG PO (09:51)
[2023-03-31] MEDS: ENOXAPARIN SODIUM 40 MG/0.4 ML SYRINGE SUBQ (09:52)
[2023-03-31] MEDS: 0.9 % SODIUM CHLORIDE 250 ML 10 ML IV (10:50)
[2023-03-31] MEDS: CEFTRIAXONE 1,000 MG in 0.9 % SODIUM CHLORIDE 50 ML 100 MG IV (10:51)
--- NOTE | 2023-03-31 11:06 | P.IMPN_ITS ---
Progress Note: A&P Assessment and Plan (1) New onset a-fib: Assessment and Plan: New onset Afib. Reverted to NSR Limited 2D ECHO normal LVEF, no sig valvular pathology. . On coreg 12.5 q12 Previously she was on 3.25 mg Poor candidate for AC given that she has an AKA, and drinks quite heavily at her age Discussed with patient. Will also make sure one of the family members is aware of it (2) Alcohol withdrawal: Assessment and Plan: Looks good today. Seems like she is not in withdrawal anymore. D/c iv valium. Switch PO ativan to PRN dosing. Qualifiers: Complication of substance-induced condition: with delirium Qualified Code(s): F10.931 - Alcohol use, unspecified with withdrawal delirium (3) Sepsis: Assessment and Plan: Stable hemodynamics . C/w IV abx for bacterial PNA. Monitor Qualifiers: Acute respiratory failure type: with hypoxia Sepsis acute organ dysfunction status: with acute organ dysfunction Sepsis type: sepsis due to unspecified organism Severe sepsis acute organ dysfunction type: acute respiratory failure Severe sepsis shock status: without septic shock Qualified Code(s): A41.9 - Sepsis, unspecified organism; R65.20 - Severe sepsis without septic shock; J96.01 - Acute respiratory failure with hypoxia (4) Acute and chronic respiratory failure with hypoxia: Assessment and Plan: Initially on BIPAP. On 5 L O2 via NC. C/w abx, systemic steroids and bronchodilators. (5) Community acquired pneumonia: Assessment and Plan: On Rocephine and Azithromycin. Likely pot viral bacterial PNA. Doing well from resp pov. Still on 5 L 02 Qualifiers: Laterality: right Lung location: lower lobe of lung Qualified Code(s): J18.9 - Pneumonia, unspecified organism (6) COPD exacerbation: Assessment and Plan: Still bronchospastic with generalized wheezing and diminished air entry. Improved from before C/w systemic steroids, bronchodilators. (7) COVID-19: Assessment and Plan: On systemic steroids. s/p paxlovid. (8) Lactic acidosis: Assessment and Plan: resolved (9) PAD (peripheral artery disease): Assessment and Plan: Stable. c/w home med Prior hx of revascularization years ago on left side. (10) HLD (hyperlipidemia): Assessment and Plan: c/w statin Qualifiers: Hyperlipidemia type: mixed hyperlipidemia Qualified Code(s): E78.2 - Mixed hyperlipidemia Plan Monitor for one more day. Wean off O2 as tolerated Internal Medicine - PN: Subj Subjective Interval history: Seen and examined. Doing well. No overnight events. Exam Constitutional Vital Signs, click to edit/add: Last Vital Signs Temp 97.6 F 03/31/23 05:20 Pulse 105 H 03/31/23 10:00 Resp 20 03/31/23 09:00 BP 143/85 H 03/31/23 09:00 Pulse Ox 95 03/31/23 09:00 O2 Del Method Nasal Cannula 03/31/23 09:00 O2 Flow Rate 5 03/31/23 09:00 FiO2 40 03/28/23 05:00 Documenting provider has reviewed patient's vital signs: yes Common normals: no apparent distress General appearance: frail appearing Respiratory Common normals: normal respiratory effort and no use of accessory muscles Auscultation: rhonchi, wheezes and diminished lung sounds Cardio Common normals: regular rate, S1 normal heart sound and S2 normal heart sound Rate: regular rate Heart sounds: S1 normal and S2 normal Extremity General: other findings (left AKA) Neuro Common normals: moves all extremities and no focal motor deficits Psych Common normals: mental status grossly normal and cooperative Internal Medicine - PN: Obj Da Labs Labs: Laboratory Results - last 24 hr 03/30/23 03/30/23 03/31/23 11:37 11:51 05:12 WBC 9.1 RBC 3.97 L Hgb 13.0 Hct 40.4 MCV 101.8 H MCH 32.7 MCHC 32.2 RDW 13.2 Plt Count 438 MPV 10.0 Neut % (Auto) 87.4 H Lymph % (Auto) 7.0 L [place] % (Auto) 4.3 Eos % (Auto) 0.0 L Baso % (Auto) 0.2 Neut # (Auto) 8.0 H Lymph # (Auto) 0.6 L [place] # (Auto) 0.4 Eos # (Auto) 0.0 Baso # (Auto) 0.0 Abs Immat Gran (auto) 0.10 H Imm/Tot Granulo (auto) 1.1 H Puncture Site Lr ABG pH 7.437 ABG pCO2 39.3 ABG pO2 67.3 L ABG HCO3 26.5 H ABG O2 Saturation 94.0 ABG Base Excess 2.3 H Jeremy Test Positive O2 Liters/Min 3 Sodium 136 Potassium 4.2 Chloride 103 Carbon Dioxide 25.5 Anion Gap 11.7 BUN 26.0 H Creatinine 0.73 Est GFR ( Amer) >60 Est GFR (Non-Af Amer) >60 BUN/Creatinine Ratio 35.6 Glucose 198 H Calcium 7.9 L Total Bilirubin 0.3 AST 12 L ALT 31 Alkaline Phosphatase 51 Ammonia 22 Total Protein 6.0 L Albumin 2.2 L Globulin 3.8 Albumin/Globulin Ratio 0.6 Urinary Catheter Management Urinary Catheter Management Urethral: Cath placed during this visit: yes Urethral indwelling: No Reason for continuing: measure accurate output Insertion date: 03/27/23 Insertion time: 09:57
--- NOTE | 2023-03-31 11:07 | PT.DAILY ---
Physical Therapy Daily Note PT Daily Note/Assess Start: 03/29/23 12:00 Freq: Status: Active Protocol: Document 03/31/23 11:03 MARYHARLEYJANNETHVICKI (Rec: 03/31/23 11:07 [facility] [id number]) Physical Therapy Daily Note/Assessment Time In/Time Out Time In 09:45 Time Out 10:00 Pain In Pain N/A Pain Out Pain N/A Subjective Subjective Pt supine upon arrival. Agrees to get into chair. pt is tearful and afraid she's never going to feel better - very emotional today. Therapeutic Exercise Time Therapeutic Exercise Minutes (minutes) 4 Therapeutic Exercise Units 0 Therapeutic Exercise Treatment Therapeutic Exercise Treatment R LE strengthening ex complete in BS chair as follows to improve/maintain stregth: Seated R AP, LAQ, marches 10x ea Long sitting in recliner heel slides, abd slides, SLR 10x ea Therapeutic Activity Time Therapeutic Activity Minutes (minutes) 7 Therapeutic Activity Units 1 Therapeutic Activity Treatment Bed Mobility Ability Minimum Assist Chair Transfer Ability Contact Guard Assist Therapeutic Activity Comments Supine>sit with Conchis to advance upper body to sit EOB. Pt is tearful and sits EOB unsupported while talking with JUNIOR JAVA DEVELOPER for 2 min without LOB. Stand pivot to BS chair CGA with increased time to complete. Seated ex complete in BS chair. Remains seated with foot elevated and call light in reach. Total Physical Therapy Time Total Therapy Minutes 11 Total Physical Therapy Units 1 Summary Daily Note Summary Conchis for bed mobility today to advance upper body to sit EOB . Declined standing at RW due to 6/10 R knee pain. Would benefit from SNF to regain strength to return to PLOF.
[2023-03-31] MEDS: INSULIN ASPART 300 UNIT/3 ML PEN SUBQ ×3 (11:35→21:52)
--- NOTE | 2023-03-31 11:56 | CM.NOTE ---
Rounds made with Dr. Spence, no discharge today. Withdraw symptoms better this morning. Pt A&Ox3.
--- NOTE | 2023-03-31 13:10 | OT.DAILY ---
Addendum entered by Amina Merino OT 03/31/23 18:45: duplicate note. Change billing to SC x 1 unit, 21 minutes. Cosigned by HUAN Fernandez, OTR/L, CLT Original Note: Occupational Therapy Daily Note OT Inpatient Daily Visit Note Start: 03/29/23 09:34 Freq: Status: Active Protocol: Document 03/31/23 12:28 [id number] (Rec: 03/31/23 12:33 [id number]) OT Visit Details Time In/Time Out Time In 11:40 Time Out 12:01 Pain In Pain Level 0 Pain Out Pain Level 0 OT Treatment Plan Subjective Subjective What is the point, I am dying in here Objective Objective Demonstrates executive functioning when provided with a food menu for meal management, able to call and order dinner Given lotion for hygiene, able to open small container and to apply to skin 2x with appropriate sequencing Good breathing techniques when short of breath, responds well to visual demonstration Assessment Assessment Pt tolerated treatment well. She responded to all questions with a normal thought process . 2x outbursts. OT Billing Total Treatment Time Total treatment minutes 21 Flower Grower Timed Codes Self-Jail Management minutes ( 21 minutes) Self-Jail Management units 2
--- NOTE | 2023-03-31 13:11 | OT.DAILY ---
Addendum entered by Amina Merino OT 03/31/23 18:44: Addend note to bill 1 unit SC only, 21 minutes. Cosign by HUAN Fernandez, OTR/L, CLT Original Note: Occupational Therapy Daily Note OT Inpatient Daily Visit Note Start: 03/29/23 09:34 Freq: Status: Active Protocol: Document 03/31/23 12:28 [id number] (Rec: 03/31/23 12:33 [id number]) OT Visit Details Time In/Time Out Time In 11:40 Time Out 12:01 Pain In Pain Level 0 Pain Out Pain Level 0 OT Treatment Plan Subjective Subjective What is the point, I am dying in here Objective Objective Demonstrates executive functioning when provided with a food menu for meal management, able to call and order dinner Given lotion for hygiene, able to open small container and to apply to skin 2x with appropriate sequencing Good breathing techniques when short of breath, responds well to visual demonstration Assessment Assessment Pt tolerated treatment well. She responded to all questions with a normal thought process . 2x outbursts. OT Billing Total Treatment Time Total treatment minutes 21 Wastewater Engineer Timed Codes Self-Nursing Home Management minutes ( 21 minutes) Self-Nursing Home Management units 2
[2023-03-31] MEDS: ATORVASTATIN CALCIUM 20 MG TABLET PO (21:49)
[2023-04-01] VITALS (11 sets, daily range): BP systolic 135; BP diastolic 83; PULSE 77–98; RESP 18–20; TEMP 36.5; O2SAT 88–95
[2023-04-01] MEDS: ALBUTEROL SULFATE 200 PUFF/6.7 GM INHALER IH ×2 (04:36→11:00)
[2023-04-01] MEDS: IPRATROPIUM BROMIDE 200 PUFF/12.9 GM INHALER IH ×2 (04:37→11:00)
--- NOTE | 2023-04-01 04:37 | RESP.RT ---
Increased up to 4L and Sp02 increased to 90%
[2023-04-01] MEDS: GABAPENTIN 300 MG CAPSULE 600 MG PO ×2 (05:22→13:38)
[2023-04-01] MEDS: METHYLPREDNISOLONE SOD SUCC PF 40 MG/ML VIAL IVP (05:22)
[2023-04-01 05:25] LABS: Basophils Percent Auto 0.1 % (0.2-2.0); Hematocrit 39.9 % (36.0-48.0); Hemoglobin 12.9 g/dL (12.0-16.0); Immature Granulocytes Abs Auto 0.08 10^3/uL (0.00-0.03); Lymphocytes Absolute Auto 0.6 10^3/uL (1.2-3.8); Lymphocytes Percent Auto 6.9 % (20.5-60.0); Mean Corpuscular HGB Conc 32.3 g/dL (29.9-35.2); Mean Corpuscular Hemoglobin 32.2 pg (26.7-34.0); Mean Corpuscular Volume 99.5 fL (81.0-99.0); Mean Platelet Volume 9.8 fL (9.5-13.5); Monocytes Absolute Auto 0.4 10^3/uL (0.3-0.8); Monocytes Percent Auto 4.7 % (1.7-12.0); Neutrophils Absolute Auto 7.3 10^3/uL (1.4-6.5); Neutrophils Percent Auto 87.3 % (43.0-75.0); Platelet Count 461 10^3/uL (150-450); Red Blood Count 4.01 10^6/uL (4.20-5.40); Red Cell Distribution Width 13.2 % (11.0-15.0); White Blood Count 8.3 10^3/uL (4.0-11.0)
[2023-04-01 05:45] LABS: Alanine Aminotransferase 28 U/L (14-59); Albumin Globulin Ratio 0.6; Albumin Level 2.2 g/dL (3.4-5.0); Alkaline Phosphatase 49 U/L (46-116); Anion Gap 9.7; Aspartate Amino Transferase 9 U/L (15-37); BUN Creatinine Ratio 29.3; Bilirubin Total 0.4 mg/dL (0.2-1.0); Carbon Dioxide 27.6 mmol/L (21.0-32.0); Chloride 103 mmol/L (98-107); Estimated GFR (African America >60 (>=60); Estimated GFR (Non-African Ame >60 (>=60); Globulin 3.5 g/dL; Glucose 194 mg/dL (74-106); Potassium 4.3 mmol/L (3.5-5.1); Sodium 136 mmol/L (136-145); Total Protein 5.7 g/dL (6.4-8.2)
[2023-04-01] MEDS: INSULIN ASPART 300 UNIT/3 ML PEN SUBQ ×2 (07:40→11:58)
[2023-04-01] MEDS: AZITHROMYCIN 250 MG TABLET 500 MG PO (08:08)
[2023-04-01] MEDS: OMEPRAZOLE 40 MG CAPSULE.DR PO (08:08)
[2023-04-01] MEDS: ASPIRIN 81 MG TAB.CHEW PO (08:08)
[2023-04-01] MEDS: CEFTRIAXONE 1,000 MG in 0.9 % SODIUM CHLORIDE 50 ML 100 MG IV (08:08)
[2023-04-01] MEDS: CLOPIDOGREL BISULFATE 75 MG TABLET PO (08:08)
[2023-04-01] MEDS: CARVEDILOL 12.5 MG TABLET PO (08:08)
[2023-04-01] MEDS: DULOXETINE HCL 60 MG CAPSULE.DR PO (08:09)
[2023-04-01] MEDS: LACTOSE -REDUCED (ENSURE ORIGINAL 237 ML LIQUID) PO (08:09)
[2023-04-01] MEDS: ENOXAPARIN SODIUM 40 MG/0.4 ML SYRINGE SUBQ (08:09)
--- NOTE | 2023-04-01 09:09 | CM.NOTE ---
Rounding with Dr. Spence. It has been communicated patient does not want to go to a residential facility but is considering home health. Anticipated discharge today.
--- NOTE | 2023-04-01 10:15 | CM.NOTE ---
Discussed discharge planning with pt, pt denies to go skilled for inpatient therapy. Pt does live with daughter, bed in dinning room for pt. Pt is in agreement to HH services, pt given list but does not have preference of HH service. Pt states just so it will be covered with Medicare.
--- NOTE | 2023-04-01 10:54 | CM.NOTE ---
New Referral sent to [facility] [place]. Pt has home oxygen @3L [place]. Pt unsure of home oxygen provided but home oxygen will be unchanged.
--- NOTE | 2023-04-01 10:57 | CM.NOTE ---
2nd Notice of Important Message From Medicare discussed with pt, pt verbalizes understanding and denies any concerns.
--- NOTE | 2023-04-01 11:34 | P.DS_ITS ---
DS: Providers Provider Date of admission: 03/27/23 08:11 Primary care physician: Nettie Jha MD Consults: 03/27/23 09:01 Occupational Therapy Eval and Treat Routine Reason for consultation: Ambulatory dysfunction/weakness Physical Therapy Eval and Treat Routine Reason for consultation: Ambulatory dysfunction/weakness Attending physician on discharge: Shaikh Jordy Discharging clinician: Shaikh Jordy DS: Diagnosis Discharge Diagnosis (1) New onset a-fib: Assessment and plan: Reverted to NSR w/o intervention. Will need outpatient cardiology appointment. Limited 2D ECHO - normal EF, no sig valvular pathology (2) Alcohol withdrawal: Assessment and plan: Developed alcohol withdrawal - required treatment with benzodiazepines. Resolved now. Counseled on alcohol abuse. Qualifiers: Complication of substance-induced condition: with delirium Qualified Code(s): F10.931 - Alcohol use, unspecified with withdrawal delirium (3) Sepsis: Assessment and plan: Resolved. Qualifiers: Acute respiratory failure type: with hypoxia Sepsis acute organ dysfunction status: with acute organ dysfunction Sepsis type: sepsis due to unspecified organism Severe sepsis acute organ dysfunction type: acute re spiratory failure Severe sepsis shock status: without septic shock Qualified Code(s): A41.9 - Sepsis, unspecified organism; R65.20 - Severe sepsis without septic shock; J96.01 - Acute respiratory failure with hypoxia (4) Acute and chronic respiratory failure with hypoxia: Assessment and plan: Initially required to be on BIPAP but later on weaned off and now back to her baseline O2 of 3 L (5) Community acquired pneumonia: Assessment and plan: Received rocephin/azithromycin for it. D/c on oral ceftin Qualifiers: Laterality: right Lung location: lower lobe of lung Qualified Code(s): J18.9 - Pneumonia, unspecified organism (6) COPD exacerbation: Assessment and plan: Doing well. C/w home meds. PO prednisone for 5 more days. (7) COVID-19: Assessment and plan: acute illness likely exacebated due to COVID infection. Beyond isolation period now. (8) Lactic acidosis: Assessment and plan: resolved (9) PAD (peripheral artery disease): Assessment and plan: c/w home meds (10) HLD (hyperlipidemia): Assessment and plan: c/w statin Qualifiers: Hyperlipidemia type: mixed hyperlipidemia Qualified Code(s): E78.2 - Mixed hyperlipidemia DS: Summary Hospital Course Hospital Course: Patient admitted for acute resp failure, sepsis sec to CAP and COVID PNA. She initially required BIPAP therapy but improved and was slowly weaned off to her Home O2 requirement of 3 L. Patient developed alcohol withdrawal in the hospital and had to be treated for it with benzodiazepines with resolution of her withdrawal symptoms. She briefly developed Afib while inpatient - reverted to NSR w/o any intervention. Given her hx of COPD, risk factors, she likely has underlying RAYMUNDO. Defer to AC for stroke px to PCP/pump tester as high risk of bleeding with her age, alcohol abuse. patient stable for discharge. Status at Discharge Overall status at discharge: patient is back to baseline Time Spent with Patient Time attestation: Total time spent providing and/or coordinating discharge services: Time spent: greater than 30 minutes Exam Constitutional Vital Signs, click to edit/add: Last Vital Signs Temp 97.7 F 04/01/23 05:30 Pulse 80 04/01/23 11:01 Resp 18 04/01/23 05:30 BP 135/83 04/01/23 05:30 Pulse Ox 93 L 04/01/23 11:01 O2 Del Method Nasal Cannula 04/01/23 11:01 O2 Flow Rate 3 04/01/23 11:01 FiO2 40 03/28/23 05:00 Documenting provider has reviewed patient's vital signs: yes Common normals: no apparent distress General appearance: frail appearing Respiratory Common normals: normal respiratory effort and no use of accessory muscles Auscultation: rhonchi, wheezes and diminished lung sounds Cardio Common normals: regular rate, S1 normal heart sound and S2 normal heart sound Rate: regular rate Heart sounds: S1 normal and S2 normal Extremity General: other findings (left AKA) Neuro Common normals: moves all extremities and no focal motor deficits Psych Common normals: mental status grossly normal and cooperative DS: Data Data Completed and Pending Labs on day of discharge: Labs from last 24 hours 04/01/23 05:11 WBC 8.3 RBC 4.01 L Hgb 12.9 Hct 39.9 MCV 99.5 H MCH 32.2 MCHC 32.3 RDW 13.2 Plt Count 461 H MPV 9.8 Neut % (Auto) 87.3 H Lymph % (Auto) 6.9 L [place] % (Auto) 4.7 Eos % (Auto) 0.0 L Baso % (Auto) 0.1 L Neut # (Auto) 7.3 H Lymph # (Auto) 0.6 L [place] # (Auto) 0.4 Eos # (Auto) 0.0 Baso # (Auto) 0.0 Abs Immat Gran (auto) 0.08 H Imm/Tot Granulo (auto) 1.0 H Sodium 136 Potassium 4.3 Chloride 103 Carbon Dioxide 27.6 Anion Gap 9.7 BUN 22.0 H Creatinine 0.75 Est GFR ( Amer) >60 Est GFR (Non-Af Amer) >60 BUN/Creatinine Ratio 29.3 Glucose 194 H Calcium 8.0 L Total Bilirubin 0.4 AST 9 L ALT 28 Alkaline Phosphatase 49 Total Protein 5.7 L Albumin 2.2 L Globulin 3.5 Albumin/Globulin Ratio 0.6 Preliminary micro results at discharge 03/27/23 07:24 - Preliminary Blood NO GROWTH AT 36-48 HOURS. FINAL TO FOLLOW. 03/27/23 07:07 Blood Culture Result 1 - Preliminary Blood NO GROWTH AT 36-48 HOURS. FINAL TO FOLLOW. Discharge Plan Discharge Disposition: Home Health Service Discharge Medications: New prednisone 20 mg tablet 20 mg PO BID 5 Days Qty: 10 0RF cefuroxime axetil 500 mg tablet 500 mg PO BID 3 Days Qty: 6 0RF Continued atorvastatin 20 mg tablet 20 mg PO BEDTIME carvedilol 3.125 mg tablet 3.125 mg PO Q12H clopidogrel 75 mg tablet 75 mg PO DAILY docusate sodium 100 mg capsule 100 mg PO BID duloxetine 60 mg capsule,delayed release(DR/EC) 60 mg PO DAILY gabapentin 800 mg tablet 800 mg PO TID lisinopril 2.5 mg tablet 2.5 mg PO DAILY nitroglycerin 0.4 mg tablet, sublingual 0.4 mg sublingual Q5M PRN (Reason: chest pain) oxycodone 10 mg tablet 10 mg PO Q6H PRN (Reason: pain) pantoprazole 40 mg tablet,delayed release (DR/EC) 40 mg PO DAILY spironolactone 25 mg tablet 25 mg PO DAILY budesonide-formoterol [Symbicort] 160-4.5 mcg/actuation HFA aerosol inhaler 2 inh INHALATION Q12H albuterol 90 mcg/actuation aerosol 90 mcg inhalation .q 4 hours PRN (Reason: sob) aspirin 81 mg capsule 81 mg PO DAILY ondansetron 4 mg tablet,disintegrating 4 mg PO Q4H PRN (Reason: nausea and vomiting) Rx Instructions: give 1st dose 30min before emetogenic chemo Thera-Tabs Tablet 1 tab PO DAILY tizanidine 4 mg tablet 4 mg PO TID PRN (Reason: muscle spasticity) Activity: increase activity as tolerated Diet: advance to your usual diet Patient Instructions: COPD (Chronic Obstructive Pulmonary Disease) (DC), COVID- 19 and Chronic Health Conditions (DC) Forms: Portal Instructions Follow Up Appointments: Follow up appt. with Dr. Jha on @ 11:30am office #: [phone] Schedule with Cardiology as outpatient in 2-3 weeks
--- NOTE | 2023-04-01 12:02 | CM.NOTE ---
[facility] will accept pt for home services at discharge. Faxed [facility] discharge summary, med list and CRF.
--- NOTE | 2023-04-01 13:57 | CM.NOTE ---
Nurse notified that [facility] has accepted pt at discharge.
== END 2023-04-01 15:05 | disposition home health service (06) | DRG 871 ==
LOC: ER 09:01 → ICU 09:11 → MS 03-30 12:24
PROVIDERS: Internal Medicine; Admitting Provider Internal Medicine; Emergency Provider Emergency Medicine; PCP Family Medicine; Visit Provider Internal Medicine
DX: A41.9 Sepsis, unspecified organism (principal); J18.9 Pneumonia, unspecified organism; U07.1 COVID-19; J96.21 Acute and chronic respiratory failure with hypoxia; J44.1 Chronic obstructive pulmonary disease with (acute) exacerbation; J44.0 Chronic obstructive pulmonary disease with (acute) lower respiratory infection; E87.20 Acidosis, unspecified; F10.131 Alcohol abuse with withdrawal delirium; R65.20 Severe sepsis without septic shock; I48.91 Unspecified atrial fibrillation; E78.2 Mixed hyperlipidemia; G47.33 Obstructive sleep apnea (adult) (pediatric); I73.9 Peripheral vascular disease, unspecified; Z99.81 Dependence on supplemental oxygen; Z87.891 Personal history of nicotine dependence; Z79.02 Long term (current) use of antithrombotics/antiplatelets; Z79.82 Long term (current) use of aspirin; Z79.899 Other long term (current) drug therapy; Z89.612 Acquired absence of left leg above knee
CPT/HCPCS: 31720; 36415; 36600; 51701; 51702; 70450; 71045; 80048; 80053; 82140; 82805; 82948; 83605; 83880; 84484; 85025; 85027; 87040; 87811; 93005; 93308; 94640; 94660; 94667; 94668; 94761; 94799; 96365; 96366; 96368; 96372; 96375; 96376; 97110; 97162; 97165; 97530; 97535; 99285; J2920; J2930

== ENCOUNTER 2023-04-12 10:22 | Outpatient (OUT) | payer MEDICARE, SELFPAY ==
[2023-04-12 11:31] LABS: Estimated Average Glucose 140 mg/dL; Glycohemoglobin A1C 6.5 % (4.5-6.2)
== END 2023-04-12 10:23 | disposition home or self-care (01) ==
LOC: LAB 10:24
PROVIDERS: PCP Family Medicine; Visit Provider Family Medicine
DX: R73.09 Other abnormal glucose (principal)
CPT/HCPCS: 36415; 83036

== ENCOUNTER 2023-04-16 10:27 | Outpatient (REF) | payer MEDICARE, SELFPAY ==
[2023-04-16 10:36] LABS: Bilirubin Urine NEGATIVE (NEGATIVE); Blood Urine NEGATIVE (NEGATIVE); Clarity Urine CLEAR (CLEAR); Color Urine YELLOW (YELLOW); Glucose Urine UA NEGATIVE (NEGATIVE); Ketones Urine NEGATIVE (NEGATIVE); Leukocyte Esterase Urine TRACE (NEGATIVE); Nitrite Urine NEGATIVE (NEGATIVE); Protein Urine NEGATIVE (NEG/TRACE); Specific Gravity Urine 1.025 (1.005-1.025); pH Urine 5.5 (5.0-9.0)
--- OUTSIDE RECORDS SUMMARY | 2023-04-16 10:39 | XMS_ITS | CCD ---
Author Name Unknown Address [address] [place] [address] Organization [facility] Care Team Providers Care Cloud Systems Administrator Name Role Phone SELVIN, DR DORA Buenrostro Admitting Unavailable CLINKER, HEMANT Consulting Unavailable LENTZ, DR JOHN Brown Primary Care Unavailable SELVIN, DR DORA Buenrostro Attending Unavailable SELVIN, DR DORA Buenrostro Admitting Unavailable LENTZ, DR JOHN Brown Primary Care Unavailable BELLA, DR DORA Buenrostro Consulting Unavailable SELVIN, DR DORA Buenrostro Attending Unavailable SELVIN, DR DORA Buenrostro Attending Unavailable SELVIN, DR DORA Buenrostro Admitting Unavailable CLINKER, HEMANT Consulting Unavailable LENTZ, DR JOHN Brown Primary Care Unavailable SELVIN, DR DORA Buenrostro Admitting Unavailable LENTZ, DR JOHN Brown Primary Care Unavailable BELLA, DR DORA Buenrostro Attending Unavailable SELVIN, DR DORA Buenrostro Admitting Unavailable LENTZ, DR JOHN Brown Primary Care Unavailable SELVIN, DR DORA Buenrostro Consulting Unavailable SELVIN, DR DORA Buenrostro Attending Unavailable CRISTIANMALDONADO Chase Consulting Unavailable DORKOSKLUIS, SEMAJ Consulting Unavailable SELVIN, DR DORA Buenrostro Admitting Unavailable SELVIN, DR DORA Buenrostro Consulting Unavailable LENTZ, DR JOHN Brown Primary Care Unavailable SELVIN, DR DORA Buenrostro Attending Unavailable CLINKER, HEMANT Consulting Unavailable CLINKER, HEMANT Attending Unavailable CLINKER, HEMANT Admitting Unavailable LENTZ, DR JOHN Brown Primary Care Unavailable GRANVILLE, DR LORENA Tirado Consulting Unavailable CLINKER, HEMANT Consulting Unavailable LENTZ, DR JOHN Brown Primary Care Unavailable REQUEST, NONE LISTED Consulting Unavaila ble REQUEST, NONE LISTED Attending Unavaila ble REQUEST, NONE LISTED Admitting Unavaila ble LENTZ, DR JOHN Brown Primary Care Unavailable REQUEST, NONE LISTED Consulting Unavaila ble REQUEST, NONE LISTED Attending Unavaila ble REQUEST, NONE LISTED Admitting Unavaila ble LENTZ, DR JOHN Brown Primary Care Unavailable KEITH, DR BENAVIDES Attending Unavailable KEITH, DR BENAVIDES Admitting Unavailable RAINA, DR JOSIE Lopez Consulting Unavailable CHAJAMIE, DR BENAVIDES Consulting Unavailable BELLA, DR DORA Buenrostro Admitting Unavailable BELLA, DR DORA Buenrostro Consulting Unavailable LENTZ, DR JOHN Brown Primary Care Unavailable SELVIN, DR DORA Buenrostro Attending Unavailable LENTZ, DR JOHN Brown Primary Care Unavailable LENTZ, DR JOHN Brown Attending Unavailable LENTZ, DR JOHN Brown Admitting Unavailable ZIEBER, DR JOSIE Lopez Consulting Unavailable LENTZ, DR JOHN Brown Consulting Unavailable LENTZ, DR JOHN Brown Primary Care Unavailable MISC, DR BARRON Consulting Unavailable MISC, DR BARRON Attending Unavailable MISC, DR BARRON Admitting Unavailable ZIEBER, DR JOSIE Lopez Consulting Unavailable LENTZ, DR JOHN Brown Primary Care Unavailable ZAROXI RODRIGUEZ Consulting Unavailable DANELLE, ROXI Attending Unavailable ROXI MCCLENDON Admitting Unavailable LENTZ, DR JOHN Brown Primary Care Unavailable ZAHLTERESA, ROXI Consulting Unavailable DANELLE, ROXI Attending Unavailable ROXI MCCLENDON Admitting Unavailable SELVIN, DR DORA Buenrostro Attending Unavailable SELVIN, DR DORA Buenrostro Admitting Unavailable LENTZ, DR JOHN Brown Primary Care Unavailable SELVIN, DR DORA Buenrostro Consulting Unavailable John Lentz Unavailable Unavailable Unavailable Dr. Adelaida Hargrove Attending Unavailable Delvin, Dr. Son Referring Unavailable Abhijeet, Dr. John Melgoza Primary Care Unav ailable Abhijeet, Dr. John Melgoza [facility] Unav ailable Jimmy, Dr. Tracey De La Cruz Attending Unavail able Lyster, Dr. Tracey De La Cruz Referring Unavail able Lyster, Dr. Tracey De La Cruz Attending Unavail able Lyster, Dr. Tracey De La Cruz Referring Unavail able Lentz, Dr. John Melgoza [facility] Unav ailable Delvin, Dr. Son Attending Unavailable Abhijeet, Dr. John Melgoza [facility] Palomav ailJohn Vick Unavailable Margy Olivas Unavailable Margy Olivas Attending Unavailable Margy Olivas Admitting Unavailable John Lentz Primary Care Unavailable John Lentz MD Primary Care Provider ADELAIDA HARGROVE Attending Unavailable JOHN LENTZ Primary Care Unavaila OMKAR Jorgensen Attending Unavailable Allergies Allergy Classification Reported Allergen(s) Allergy Type Date of Onset Reaction(s) Facility (8 sources) Bacitracin; Translations: [BACITRACIN] Drug Allergy 07-19-19 21 Unknown [facility] Repository (2 sources) Neomycin; Translations: [NEOMYCIN] Drug Allergy 07-19-19 21 [facility] Repository (3 sources) Vancomycin; Translations: [VANCOMYCIN] Drug Allergy 01-17-20 15 [facility] Repository (1 source) Polymyxin B Drug allergy (disorder) 07-19-19 21 [facility] Repository (20 sources) Vancomycin; Translations: [vancomycin] Drug Allergy 07-21-19 14 [facility] (15 sources) Aminoglycosides (Antibiotic) Propensity to adverse reactions Unknown [facility] Other (9 sources) Bacitracin Drug Allergy Unknown [facility] Other (15 sources) Neomycin Drug Allergy Unknown [facility] Other (15 sources) Polymyxin B Drug Allergy Unknown [facility] Other (8 sources) Contrast media Propensity to adverse reactions 07-21-19 14 Unknown [facility] Other (8 sources) Erythromycin Drug Allergy Unknown [facility] Other (8 sources) fluticasone / salmeterol Drug Allergy 09-11-19 16 Unknown [facility] Other (7 sources) influenza A virus (H1N1) antigen / influenza A virus (H3N2) antigen / influenza B virus antigen Drug Allergy Comment:Flu Injection [facility] Other (8 sources) traMADol Drug Allergy 10-17-19 15 Unknown [facility] Other (8 sources) Advair Diskus *ANTIASTHMATIC AND BRONCHODILATOR AG Propensity to adverse reactions Unknown [facility] Other (7 sources) patient allergy list reviewed by nurse or physicia Propensity to adverse reactions 09-22-19 18 Comment:Done [facility] Other (8 sources) Dyes Propensity to adverse reactions Comment:CT DYE [facility] Other (7 sources) Allergies Reconciled Propensity to adverse reactions Unknown [facility] Other (8 sources) TraMADol & Dietary Manage Prod *ANALGESICS - OPIOI Propensity to adverse reactions Unknown [facility] Other (8 sources) Vaccine product containing Influenza virus antigen (medicinal product) Drug allergy 03-03-20 17 Unknown [facility] Other (8 sources) Contraindication to Flu Injection Propensity to adverse reactions 08-18-19 18 Comment:advers e rxn/side effects [facility] Other (1 source) Aminoglycosides (Antibiotic) Drug allergy (disorder) 10-25-19 [facility] Repository (1 source) Vancomycin Drug Allergy 10-25-19 [facility] Repository (1 source) Flucelvax Quadrivalent Drug allergy Comment:Flu Injection [facility] Other (1 source) POLYMYXIN B SULFATE-HC; Translations: [POLYMYXIN B SULFATE-HC] Propensity to adverse reactions to drug (disorder) 08-29-19 [facility] Repository Medications Current Medications Medication Drug Class(es) Dates Sig (Normalized) Sig (Original) [id number] 200 actuat albuterol 0.09 mg/actuat metered dose inhaler (20 sources) beta2-Adrenergic Agonist take 1 puff(s) by inhalation every four hours as needed Ventolin HFA 108 (90 Base) MCG/ACT 1 puff as needed Inhalation every 4 hrs Active take 1 puff(s) by in halation every four hours albuterol (ProAir HFA) 90 mcg/actuation inhaler Inhale 1 puff every 4 hours if needed. 0 Active take 1 puff(s) by in halation every four hours as needed ProAir HFA 108 (90 Base) MCG/ACT AERS INHALE 1 PUFF EVERY 4 HOURS NEEDED. Quantity: 0 Refills: 0 Ordered: 08-Apr-2021 DO Active albuterol 0.833 mg/ml / ipratropium bromide 0.167 mg/ml inhalation solution (15 sources) Anticholinergic, beta2-Adrenergic Agonist Start: 05-14-2020 take 3 mL by inhalation four times daily Ipratropium-Albuterol 0.5-2.5 (3) MG/3ML 3 ml Inhalation Four times a day DX COPD 496 for 30 days Apr, Active aspirin 81 mg delayed release oral tablet (14 sources) Platelet Aggregation Inhibitor, Nonsteroidal Anti-inflammatory Drug take 1 tablet by mouth once daily aspirin 81 mg EC tablet Take 1 tablet (81 mg) by mouth once daily. 0 Active atorvastatin 20 mg oral tablet (20 sources) HMG-CoA Reductase Inhibitor Start: 09-08-2021 take 1 tablet by mouth once daily at bedtime atorvastatin (Lipitor) 20 mg tablet Take 1 tablet (20 mg) by mouth once daily at bedtime. 0 09/08/2021 Active azithromycin 250 mg oral tablet (3 sources) Macrolide Antimicrobial Start: 09-22-2022 Azithromycin 250 MG as directed Orally 2 tabs po today, then 1 tab daily x 4 more days for 5 August, Active 60 actuat budesonide 0.16 mg/actuat / formoterol fumarate 0.0045 mg/actuat metered dose inhaler (20 sources) Corticosteroid, beta2-Adrenergic Agonist Start: 06-16-2022 Symbicort 160-4.5 mcg/actuation inhaler Start: 05-14-2020 take 2 puff(s) by in halation twice daily Symbicort 80-4.5 MCG/ACT 2 puffs Inhalation Twice a day for 30 days Apr, Active take 2 puff(s) by mo uth twice daily Symbicort 160-4.5 MCG/ACT INHALE 2 PUFFS BY MOUTH TWICE A DAY for 30 Active take 2 puff(s) by mo uth twice daily Symbicort 160-4.5 MCG/ACT INHALE 2 PUFFS BY MOUTH TWICE A DAY for 30 Active budesonide-formo teroL (Symbicort) 80-4.5 mcg/actuation inhaler Inhale. Use as directed 0 Active Symbicort 80-4.5 MCG/ACT Inhalation Aerosol USE DIRECTED. Quantity: 0 Refills: 0 Ordered: 08-Apr-2021 DO Active ciprofloxacin 3 mg/ml ophthalmic solution (3 sources) Quinolone Antimicrobial Start: 09-22-2022 Ciprofloxacin HCl 0.3 % 1 application into the lower eyelid of affected eye Ophthalmic tid for 5 day(s) August, Active clopidogrel 75 mg oral tablet (20 sources) [id number] Platelet Inhibitor Start: 09-11-2021 take 1 tablet by mouth once daily clopidogrel (Plavix) 75 mg tablet Take 1 tablet (75 mg) by mouth once daily. 0 09/11/2021 Active docusate sodium 100 mg oral capsule (20 sources) take 1 capsule by mouth every twenty-four hours Colace 100 MG 1 capsule as needed Orally Once a day Active take 1 capsule by mouth twice da spencer docusate sodium (Colace) 100 mg capsule Take 1 capsule (100 mg) by mouth 2 times a day. 0 Active DULoxetine 30 mg delayed release oral capsule (20 sources) Serotonin and Norepinephrine Reuptake Inhibitor Start: 05-26-2021 take 2 capsules by mouth three times daily DULoxetine (Cymbalta) [address] capsule Take 2 capsules (60 mg) by mouth 3 times a day. 0 05/26/2021 Active Start: 05-26-2021 take 1 capsule by [facility] twice daily DULoxetine HCl - 30 MG Oral Capsule Delayed Release Particles TAKE 1 CAPSULE TWICE DAILY. Quantity: 0 Refills: 0 Ordered: 26-May-2021 DO Start : 26-May-2021 Active take 1 capsule by [facility] every twenty-four hours Cymbalta 60 MG 1 capsule Orally Once a day for 90 days Active hydrOXYzine pamoate 25 mg oral capsule (15 sources) Antihistamine take 1 capsule by mouth every eight hours hydrOXYzine Pamoate 25 MG 1 capsule as needed Orally every 8 hrs for 30 day(s) Active Incruse Ellipta 62.5 MCG/INH (15 sources) take 1 puff(s) by mouth once daily Incruse Ellipta 62.5 MCG/INH INHALE 1 PUFF BY MOUTH EVERYDAY Inhalation for 30 Active levoFLOXacin 500 mg oral tablet (4 sources) Quinolone Antimicrobial Start: 09-25-19 take 1 tablet by mouth every twenty-four hours levoFLOXacin 500 MG 1 tablet Orally Once a day for 10 days Sep, Active Start: 06-01-2022 take 1 tablet by [facility] every twenty-four hours levoFLOXacin 500 MG 1 tablet Orally Once a day for 5 days May, Active lisinopril 2.5 mg oral tablet (20 sources) Angiotensin Converting Enzyme Inhibitor Start: 08-08-2021 take 1 tablet by mouth once daily lisinopril 2.5 mg tablet Take 1 tablet (2.5 mg) by mouth once daily. 0 08/08/2021 Active multivit-min/ferrous fumarate (MULTI VITAMIN ORAL) (1 source) take 1 tablet by mouth once daily multivit-min/ferrou s fumarate (MULTI VITAMIN ORAL) Take 1 tablet by mouth once daily. 0 Active Multivitamin Adult - (15 sources) Multivitamin [place] lt - as directed Orally Active nitroglycerin 0.4 mg sublingual tablet (14 sources) Nitrate Vasodilator nitroglycerin (Nitrostat) 0.[address] 1 tablet (0.4 mg) under the tongue every 5 minutes if needed for chest pain (up to 3 doses as needed for chest pain). 0 Active nystatin 100 unt/mg topical powder (8 sources) Polyene Antifungal Nystatin 1000 00 UNIT/GM 1 application Externally Twice a day for 10 days Active ondansetron 4 mg oral tablet (20 sources) Serotonin-3 Receptor Antagonist take 1 tablet by mouth three times daily as needed Ondansetron HCl 4 MG TAKE 1 TABLET BY MOUTH THREE TIMES A DAY NEEDED for 16 Active oxyCODONE hydrochloride 10 mg oral tablet (20 sources) Opioid Agonist Start: 03-22-2023 take 1 tablet by mouth every six hours oxyCODONE HCl 10 MG 1 tablet as needed Orally every 6 hrs for 30 days Feb, Active Start: 12-29-2022 take 1 tablet by [facility] every six hours oxyCODONE HCl 10 MG 1 tablet as needed Orally every 6 hrs for 30 days Dec, Active Start: 05-05-2022 take 1 tablet by [facility] th every six hours oxyCODONE HCl 10 MG 1 tablet as needed Orally every 6 hrs for 30 days August, Active take 1 tablet by [facility] th every six hours oxyCODONE HCl 5 MG 1 tablet as needed Orally every 6 hrs Not-Taking/PRN take 10 mg by mouth every twelve hours oxyCODONE ER (OxyCONTIN) 10 mg 12 hr tablet Take 1 tablet (10 mg) by mouth every 12 hours. Do not crush, chew, or split. 0 Active pantoprazole 40 mg delayed release oral tablet (20 sources) Proton Pump Inhibitor take 1 tablet by mouth once daily Pantoprazole Sodium 40 MG TAKE 1 TABLET BY MOUTH EVERY DAY for 90 Active paxlovid (300/100) 20 x 150 mg & 10 x 100mg tablet therapy pack (2 sources) Paxlovid (300/10 0) 20 x 150 MG & 10 x 100MG as directed Orally for 5 days tell pt to hold plavix on paxlovid - thanks Active predniSONE 20 mg oral tablet (6 sources) Start: take 2 tablets by mouth every twenty-four hours predniSONE 20 MG 2 tablets Orally Once a day for 5 days tell pt to hold plavix on paxlovid - thanks Feb, Active Start: 06-01-2022 take 2 tablets by mo [facility] every twenty-four hours predniSONE 20 MG 2 tablets Orally Once a day for 5 days May, Active spironolactone 25 mg oral tablet (14 sources) Aldosterone Antagonist Start: 09-11-2021 take 1 tablet by mouth once daily spironolactone (Aldactone) 25 mg tablet Take 1 tablet (25 mg) by mouth once daily. 0 09/11/2021 Active take 1 tablet by mouth once harshil y Spironolactone 25 MG Oral Tablet TAKE 1 TABLET DAILY. Quantity: 0 Refills: 0 Ordered: 08-Apr-2021 DO Active tiZANidine 4 mg oral tablet (12 sources) Central alpha-2 Adrenergic Agonist take 1 tablet by mouth three times daily tiZANidine HCl 4 MG 1 tablet Orally three times daily for 90 days Active {20 (nirmatrelvir 150 MG Oral Tablet) / 10 (ritonavir 100 MG Oral Tablet) } Pack [Paxlovid 5-Day] (1 source) Paxlovid (300/10 0) 20 x 150 MG & 10 x 100MG as directed Orally for 5 days tell pt to hold plavix on paxlovid - thanks Active Completed/Discontinued Medications Medication Drug Class(es) Dates Sig (Normalized) Sig (Original) amitriptyline hydrochloride 10 mg oral tablet (4 sources) Tricyclic Antidepressant Start: 05-23-2021 take 1 tablet by mouth once daily at bedtime Amitriptyline HCl - 10 MG Oral Tablet TAKE 1 TABLET BY MOUTH EVERYDAY AT BEDTIME Quantity: 90 Refills: 0 Ordered: 21-Jun-2021 DO Start : 23-May-2021 Active carvedilol 3.125 mg oral tablet (20 sources) alpha-Adrenergic Kodi, beta-Adrenergic Kodi Start: 08-13-2022 take 1 tablet by mouth twice daily at mealtime Carvedilol 3.125 MG Oral Tablet TAKE 1 TABLET BY MOUTH TWICE A DAY WITH MEALS Quantity: 180 Refills: 3 Ordered: 14-Aug-2022 Adelaida Hargrove MD Start : 13-Aug-2022 Active gabapentin 800 mg oral tablet (20 sources) Anti-epileptic Agent Start: 04-01-2021 End: 03-01-2023 take 1 tablet by mouth three times daily gabapentin (Neurontin) 800 mg tablet Take 1 tablet (800 mg) by mouth 3 times a day. 0 04/01/2021 03/01/2023 Discontinued (Ineffective) take 1 tablet by [facility] th three times daily gabapentin (Neurontin) 600 mg tablet Shaji e 1 tablet (600 mg) by mouth 3 times a day. 0 Active Gabapentin 600 M G 1 Tablet Orally 2-3 times per day Active 12 hr guaiFENesin 600 mg extended release oral tablet (15 sources) Start: 05-14-2020 take 1 tablet by mouth every twelve hours Mucinex 600 MG 1 tablet as needed Orally every 12 hrs for 30 days Apr, Not-Taking/PRN lubiprostone 0.024 mg oral capsule (7 sources) Chloride Channel Activator take 1 capsule by mouth twice daily at mealtime Amitiza 24 MCG Oral Capsule TAKE 1 CAPSULE TWICE DAILY WITH FOOD. Quantity: 0 Refills: 0 Ordered: 08-Apr-2021 DO Active Multi Vitamin TABS (13 sources) Multi Vitamin TA BS TAKE 1 TABLET DAILY. Quantity: 0 Refills: 0 Ordered: 08-Apr-2021 DO Active Problems Active Problems Problem Classification Problem Date Documented Da te Episodic/Chronic Administrative/social admission (6 sources) Follow-up status; Translations: [Other specified counseling] Episodic Cardiac dysrhythmias (10 sources) Cardiac arrhythmia; Translations: [Unspecified cardiac dysrhythmia] Onset: 07-20-2013 Chronic Cataract (8 sources) Age-related nuclear cataract, right eye; Translations: [Age-related nuclear cataract, left eye] Onset: 10-24-2020 Chronic Chronic obstructive pulmonary disease and bronchiectasis (20 sources) Chronic obstructive pulmonary disease, unspecified; Translations: [Bronchiectasis with acute lower respiratory infection] Onset: 02-29-2020 Chronic Chronic obstructive pulmonary disease and bronchiectasis (1 source) Bronchitis, not specified as acute or chronic Episodic Chronic ulcer of skin (15 sources) Non-pressure ulcer of thigh; Translations: [Non-pressure chronic ulcer of unspecified thigh with unspecified severity] Chronic Complication of device; implant or graft (14 sources) Mechanical complication due to breast prosthesis; Translations: [Other mechanical complication of breast prosthesis and implant, initial encounter] Episodic Congestive heart failure; nonhypertensive (7 sources) Left heart failure; Translations: [Left heart failure] Onset: 08-25-2018 Chronic Coronary atherosclerosis and other heart disease (20 sources) Atherosclerotic heart disease of [place] coronary artery without angina pectoris; Translations: [Coronary arteriosclerosis] Onset: 08-25-2018 03-01-2023 Chronic Coronary atherosclerosis and other heart disease (10 sources) Stented coronary artery; Translations: [Percutaneous transluminal coronary angioplasty status] Onset: 02-26-2023 03-01-2023 Episodic Coronary atherosclerosis and other heart disease (1 source) Coronary atherosclerosis and other heart disease; Translations: [Atherosclerosis of [place] arteries of extremities with intermittent claudication, right leg] Onset: 11-17-2022 Disorders of lipid metabolism (20 sources) Pure hypercholesterolemia, unspecified; Translations: [Hyperlipidemia] Onset: 07-20-2013 03-01-2023 Chronic Esophageal disorders (5 sources) Gastro-esophageal reflux disease with esophagitis; Translations: [Gastro-esophageal reflux disease with esophagitis, without bleeding] Chronic Esophageal disorders (2 sources) Esophageal disorders; Translations: [Gastro-esophageal reflux disease with esophagitis, without bleeding] Essential hypertension (19 sources) Essential hypertension; Translations: [Unspecified essential hypertension] Onset: 07-20-2013 03-01-2023 Chronic Gangrene (20 sources) Gangrene of left foot; Translations: [Gangrene, not elsewhere classified] Episodic Immunizations and screening for infectious disease (13 sources) Patient encounter status; Translations: [Other specified vaccination] Episodic Inflammation; infection of eye (except that caused by tuberculosis or sexually transmitteddisease) (1 source) Unspecified acute conjunctivitis, bilateral Episodic Occlusion or stenosis of precerebral arteries (20 sources) Right carotid artery stenosis; Translations: [Occlusion and stenosis of right carotid artery] Chronic Open wounds of extremities (18 sources) 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 without complication; Translations: [Complete traumatic amputation at level between left hip and knee, initial encounter] Onset: 03-01-2023 03-01-2023 Chronic Open wounds of extremities (1 source) Laceration without foreign body, right lower leg, initial encounter Episodic Osteoarthritis (20 sources) Osteoarthrosis of the carpometacarpal joint of the thumb; Translations: [Osteoarthritis of first carpometacarpal joint, unspecified] Onset: 07-20-2013 Chronic Other aftercare (1 source) Other intermediate manager (current) drug therapy; Translations: [OTH [facility] CURRENT DRUG THERAPY] Onset: 11-06-2020 Episodic Other aftercare (7 sources) Long-term current use of inhaled steroid; Translations: [[facility] (current) use of inhaled steroids] Episodic Other aftercare (7 sources) Long-term current use of anticoagulant; Translations: [long term care pharmacist (current) use of anticoagulants] Episodic Other bone disease and musculoskeletal deformities (6 sources) Acquired absence of left leg above knee; Translations: [ACQUIRED ABSENCE LT LEG ABOVE KNEE] Onset: 10-15-2020 Chronic Other bone disease and musculoskeletal deformities (15 sources) History of amputation of left leg through femur; Translations: [Acquired absence of left leg above knee] Chronic Other bone disease and musculoskeletal deformities (7 sources) Amputated above knee; Translations: [Lower limb amputation, above knee] Onset: 07-18-2018 Chronic Other circulatory disease (7 sources) Arterial, arteriole and capillary disease; Translations: [Disorder of arteries and arterioles, unspecified] Onset: 11-07-2015 Chronic Other circulatory disease (8 sources) Carotid bruit; Translations: [Other symptoms involving cardiovascular system] Onset: 02-26-2023 03-01-2023 Episodic Other circulatory disease (5 sources) Other specified symptoms and signs involving the circulatory and respiratory systems; Translations: [Oth symptoms and signs involving the circ and resp systems] Onset: 04-13-2022 Episodic Other connective tissue disease (4 sources) Neuralgia and neuritis, unspecified; Translations: [NEURALGIA AND NEURITIS UNSPECIFIED] Onset: 12-09-2020 Episodic Other connective tissue disease (4 sources) Pain in left lower leg; Translations: [PAIN IN LEFT LOWER LEG] Onset: 10-29-2020 Episodic Other connective tissue disease (20 sources) Pain in limb; Translations: [Pain in left finger(s)] Episodic Other connective tissue disease (7 sources) Neuralgia; Translations: [Neuralgia and neuritis, unspecified] Episodic Other gastrointestinal disorders (7 sources) Irritable bowel syndrome characterized by constipation; Translations: [Irritable bowel syndrome with constipation] Chronic Other gastrointestinal disorders (7 sources) Drug-induced constipation; Translations: [Drug induced constipation] Episodic Other injuries and conditions due to external causes (7 sources) History of fall; Translations: [History of falling] Episodic Other lower respiratory disease (14 sources) Dyspnea; Translations: [Shortness of breath] Onset: 02-26-2023 02-26-2023 Episodic Other lower respiratory disease (7 sources) Hemoptysis; Translations: [Hemoptysis] Episodic Other nervous system disorders (1 source) Chronic pain syndrome; Translations: [CHRONIC PAIN SYNDROME] Onset: 08-23-2020 Chronic Other nervous system disorders (15 sources) Chronic pain; Translations: [Other chronic pain] Chronic Other nervous system disorders (15 sources) Mononeuropathy of lower limb; Translations: [Unspecified mononeuropathy of left lower limb] Chronic Other nervous system disorders (3 sources) Other chronic pain Chronic Other nervous system disorders (13 sources) Abnormal gait; Translations: [Abnormality of gait] Episodic Other nutritional; endocrine; and metabolic disorders (7 sources) Body mass index 25-29 - overweight; Translations: [Body mass index (BMI) 28.0-28.9, adult] Episodic Other screening for suspected conditions (not mental disorders or infectious disease) (14 sources) Screening for malignant neoplasm of respiratory tract; Translations: [Encounter for screening for malignant neoplasm of respiratory organs] Onset: 06-01-2017 Episodic Other upper respiratory infections (1 source) Acute maxillary sinusitis, unspecified Episodic Peripheral and visceral atherosclerosis (20 sources) Ischemic foot pain at rest; Translations: [Peripheral vascular disease, unspecified] Onset: 04-12-2023 Chronic Phlebitis; thrombophlebitis and thromboembolism (7 sources) History of thromboembolism of vein; Translations: [Personal history of other venous thrombosis and embolism] Episodic Pneumonia (except that caused by tuberculosis or sexually transmitted disease) (7 sources) Pneumonia; Translations: [Pneumonia, unspecified organism] Episodic Residual codes; unclassified (8 sources) Dependence on wheelchair; Translations: [Wheelchair dependence] Onset: 02-26-2023 03-01-2023 Chronic Residual codes; unclassified (2 sources) Dependence on wheelchair; Translations: [Dependence on wheelchair] Onset: 02-26-2023 Chronic Residual codes; unclassified (1 source) Pain, unspecified; Translations: [PAIN UNSPECIFIED] Onset: 10-20-2020 Episodic Residual codes; unclassified (13 sources) Body mass index 20-24 - normal; Translations: [Body Mass Index between 19-24, adult] Episodic Residual codes; unclassified (7 sources) Insomnia; Translations: [Insomnia, unspecified] Episodic Residual codes; unclassified (4 sources) Other specified postprocedural states; Translations: [Other specified postprocedural states] Onset: 03-01-2023 Episodic Residual codes; unclassified (1 source) Disorientation, unspecified Episodic Respiratory failure; insufficiency; arrest (adult) (7 sources) Chronic respiratory failure; Translations: [Chronic respiratory failure with hypoxia] Chronic Screening and history of mental health and substance abuse codes (18 sources) Ex-smoker; Translations: [Personal history of tobacco use] Onset: 02-26-2023 02-26-2023 Episodic Comment on above: Quit cigs 2009; Spondylosis; intervertebral disc disorders; other back problems (20 sources) Spondylosis without myelopathy or radiculopathy, lumbar region; Translations: [Other spondylosis with radiculopathy, lumbar region] Onset: 07-30-2020 Chronic Substance-related disorders (7 sources) Drug-induced sleep disorder; Translations: [Other psychoactive substance use, unspecified with psychoactive substance-induced sleep disorder] Episodic Superficial injury; contusion (7 sources) Abrasion, lower leg; Translations: [Abrasion, right lower leg, initial encounter] Episodic Unclassified (1 source) CONTACT W/AND (SUSP) EXPOS COVID-19; Translations: [CONTACT W/AND (SUSP) EXPOS COVID-19] Onset: 10-04-2020 Past or Other Problems Problem Classification Problem Date Documented Date Episodic/Chronic Acute bronchitis (7 sources) Acute bronchitis; Translations: [Acute bronchitis, unspecified] Onset: 07-20-2013 Episodic Deficiency and other anemia (7 sources) Anemia; Translations: [Anemia, unspecified] Onset: 05-19-2016 Episodic Mood disorders (1 source) Mood disorders Onset: 08-07-2021 06-07-2022 Mycoses (7 sources) Candidiasis of skin and nails; Translations: [Candidiasis of skin and nails] Onset: 08-25-2018 Episodic Nonmalignant breast conditions (7 sources) Breast lump; Translations: [Lump or mass in breast] Onset: 12-17-2016 Episodic Other aftercare (1 source) [facility]FP (current) use of anticoagulants; Translations: [MCC CURRNT USE ANTICOAGULANTS] Onset: 07-05-2020 Episodic Other lower respiratory disease (2 sources) Shortness of breath; Translations: [Shortness of breath] Onset: 08-19-2021 Episodic Other nervous system disorders (7 sources) Tremor; Translations: [Tremor, unspecified] Onset: 04-14-2016 Episodic Other nervous system disorders (7 sources) Acute postoperative pain; Translations: [Other acute postoperative pain] Onset: 11-07-2015 Episodic Other skin disorders (7 sources) Symptom of skin and integumentary tissue; Translations: [Other symptoms involving skin and integumentary tissues] Onset: 11-18-2015 Episodic Spondylosis; intervertebral disc disorders; other back problems (20 sources) Low back pain; Translations: [Radiculopathy, lumbar region] Onset: 10-16-2014 Episodic Unclassified (1 source) Onset: 03-01-2023 03-01-2023 Viral infection (1 source) COVID-19 Results Test Name Value Interpretation Reference Range Facility Office Visiton 04-12-2023 Follow-up visit [id number] Sanchez Merritt 1945 F Date Provider Department Center 04/12/2023 [facility] No family history on file Level of Service:61654 MT OFFICE/OUTPATIENT ESTABLISHED MOD MDM 30 MIN Normal [facility] US UNI ankle/arm indiceson 0 12-17-2022 US UNI ankle/arm indices [facility] Main [address] [address] Ultrasound Report Signed Patient: Sanchez Merritt MR#: [id number] : 1945 Acct:[id number] Age/Sex: 77 / F ADM Date: 11/17/22 Loc: [facility] Room: Type: [facility] Attending Dr: Margy Olivas [employer] SAFETY FIELD SPECIALIST-C Ordering Provider: Margy Olivas APRN Date of Service: 11/17/22 US/US UNI ankle/arm indices: I70.211 Copies to: Margy Olivas APRN LOWER EXTREMITY SEGMENTAL ARTERIAL DOPSCAN (PVR) INDICATION: Left leg BRENDA due to known PAD. PROCEDURE: Right arm blood pressure is 122 , left is 123 . Pressures of the right leg are 112 at the ankle using the posterior tibial artery and 106 at the ankle using the dorsalis pedis artery with ankle-brachial index of 0.86 0.91 . Wave forms by plethysmography are strongly biphasic in the right lower extremity. US/US UNI ankle/arm indices IMPRESSION: MILD PERIPHERAL ARTERIAL DISEASE OF THE LEFT LOWER EXTREMITY AT REST. Impression dictated by: Lauro Heard MD12/17/2022 2:11 PM Dictation Location: [id number] Tech: Julia Bautista Transcribed By: BILLIE 12/17/22 1411 Dictated By: Lauro Heard MD 12/17/22 1410 Signed By: 12/17/22 1411 [facility] LAB Carotid Artery Dupl ex Ultrasounon 04-13-2022 [facility] Carotid Artery Duplex Ultrasoun [address], [address] [place] [address] Vascular Lab Report Carotid Artery Duplex Ultrasound Patient Name: SANCHEZ Melara Physician: [id number] Ludwig South MD, [facility] Study Date: 04/13/2022 Referring ADELAIDA HARGROVE Physician: MRN/PID: [id number] PCP: John Lentz Accession/Order#: [id number] CC Report to: Cooper Catalina Date of : 1945 Technologist: Jillian Gonzalez RUST, [facility] Gender: F Technologist 2: Admission Status: Outpatient Location Performed: [facility] Diagnosis/ICD: R09.89-Other specified symptoms and signs involving the circulatory and respiratory systems Indication: CAD, Right CEA, Peripheral Vascular Disease, 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 Laminar flow seen by color Doppler. There are elevated velocities in the right ECA that are suggestive of disease. No evidence of hemodynamically significant stenosis of the right common carotid artery. The right vertebral artery is patent with antegrade flow. Left Carotid: Findings are consistent with less than 50% stenosis of the left proximal ICA. Laminar flow seen by color Doppler. There are elevated velocities in the left ECA that are suggestive of disease. No evidence of hemodynamically significant stenosis of the left common carotid artery. The left vertebral artery is patent with antegrade flow. Imaging AND Doppler Findings: Left Plaque Morph: The distal left common carotid artery demonstrates heterogenous, irregular and calcified plaque. Right Left PSV EDV PSV EDV 87 cm/s 22 cm/s CCA P 128 cm/s 23 cm/s 74 cm/s 20 cm/s CCA M 97 cm/s 18 cm/s 115 cm/s 18 cm/s CCA D 87 cm/s 21 cm/s 63 cm/s 12 cm/s ICA P 72 cm/s 15 cm/s 71 cm/s 26 cm/s ICA M 96 cm/s 26 cm/s 81 cm/s 23 cm/s ICA D 92 cm/s 28 cm/s 152 cm/s ECA 134 cm/s 62 cm/s Vertebral 55 cm/s Right Left ICA/CCA Ratio 0.5 0.8 [id number] Ludwig South MD, FACC Final Normal [facility] VASC LAB Carotid Artery Dupl ex Ultrasoundon 04-13-2022 US.doppler Carotid arteries [facility] R[facility] 250 DO Work Phone: Height or Weight NOT Doneon 02-26-2022 Fall risk assessment a) No falls within the last year [facility] 250 DO Work Phone: Tobacco use status [facility] b) No [facility] 250 DO Work Phone: Office Visit (Cardiology)on 02-26-2022 Follow-up visit Diagnoses/Problems Assessed Arteriosclerosis of coronary artery (414.00) (I25.10) Former smoker (V15.82) (Z87.891) Quit cigs 2009 Hyperlipidemia (272.4) (E78.5) Encounter to discuss test results (V65.49) (Z71.2) Ischemic cardiomyopathy (414.8) (I25.5) Wheelchair dependent (V46.3) (Z99.3) Bilateral carotid bruits (785.9) (R09.89) Primary hypertension (401.9) (I10) Chronic obstructive pulmonary disease, unspecified COPD type (496) (J44.9) Stented coronary artery (V45.82) (Z95.5) Orders Arteriosclerosis of coronary artery Renew: Aspirin 81 MG Oral Tablet Delayed Release; TAKE 1 TABLET DAILY Renew: Clopidogrel Bisulfate 75 MG Oral Tablet; TAKE 1 TABLET BY MOUTH EVERY DAY Renew: Nitroglycerin 0.4 MG Sublingual Tablet Sublingual; PLACE 1 TABLET UNDER THE TONGUE EVERY 5 MINUTES UP TO 3 DOSES NEEDED FOR CHEST PAIN Arteriosclerosis of coronary artery, Bilateral carotid bruits [facility] LAB Carotid Artery Duplex Ultrasound; Status:Hold For - Scheduling,Retrospecti ve Authorization; Requested for:26Feb2022; Laterality : Bilateral Arteriosclerosis of coronary artery, Ischemic cardiomyopathy Comprehensive Metabolic Panel; Status:Active - Retrospective Authorization; Requested for:24Jan2023; Arteriosclerosis of coronary artery, Ischemic cardiomyopathy, Primary hypertension Renew: Lisinopril 2.5 MG Oral Tablet; TAKE 1 TABLET Daily Hyperlipidemia Renew: Atorvastatin Calcium 20 MG Oral Tablet; TAKE 1 TABLET BY MOUTH EVERYDAY AT BEDTIME Lipid Panel; Status:Active - Retrospective Authorization; Requested for:24Jan2023; Ischemic cardiomyopathy, Primary hypertension Renew: Carvedilol 3.125 MG Oral Tablet; TAKE 1 TABLET TWICE DAILY WITH MEALS Primary hypertension Renew: Spironolactone 25 MG Oral Tablet; TAKE 1 TABLET BY MOUTH EVERY DAY SocHx: Former smoker Tobacco Use Screening; Status:Complete; Done: 26Feb2022 Patient Instructions Please bring all medicines, vitamins, and herbal supplements with you when you come to the office. Prescriptions will not be filled unless you are compliant with your follow up appointments or have a follow up appointment scheduled as per instruction of your physician. Refills should be requested at the time of your visit Follow up in 1 year. Chief Complaint SANCHEZ MERRITT is being seen for a 6 month follow-up of. History of Present Illness Previously seen by ,last OV 08/07/21. Mrs. Merritt is a 76-year-old female seen back today for follow-up on her history of coronary disease. She had previous coronary intervention with stent placement to the ostial left main as well as mid right coronary arteries that was done in July 2018. She indicates that her symptoms prior to her intervention was shortness of breath. She does not have pain or pressure. She also has significant COPD secondary to previous cigarette smoking but she did quit smoking. She also has peripheral vascular disease with a left above-knee amputation. Ejection fraction is typically been estimated at around 50%. She indicates that her breathing has progressively worsened again. She does not believe there is been really any change to her pulmonary status. Patient is accompanied by her son to the office. Son identifies himself as Alessandro 1 1,2 [place]. 2 Patient reports no chest pressure tightness heaviness or palpitations. She has left above-knee amputation and gets around in a wheelchair, and has not reported any falls since the last visit here. She has a long history of nicotine addiction. On examination she has evidence of COPD. She has a right carotid endarterectomy scar, bilateral carotid bruit, breath sounds are very distant heart sounds are regular, there is no peripheral edema in the right lower extremity. Foot is warm to touch. She gets around in a 3 wheeled scooter when she is in the house. She is very stressed about her daughter being diagnosed with breast cancer, and the side effects of therapy. She quit cigarettes in 2009. She says that the amputation stump in her left leg hurts all the time. Assessment: 1 2 1. Long history of nicotine addiction, quit in 2009 2. Vascular disease in multiple territories, status post left above-knee amputation, was examined in a wheelchair today, gets around in a 3 wheeled scooter at home, reports no falls 3. Right carotid endarterectomy scar and bilateral carotid bruit, symmetric left upper extremity pulses. Bruits are also heard in the supraclavicular and infraclavicular area bilaterally. 4. COPD on examination 5. Hypertension-at target 6. Lexiscan Myoview July 2021-LVEF 72%, transient ischemic dilatation 0.93, no evidence of attenuation artifact. 7. Echocardiogram October 2018-LVEF 50 to 55%, left atrial diameter 3.4 cm, impaired relaxation pattern of LV diastolic filling, no pericardial effusion, RV systolic pressure 36 mmHg 8. Coronary angiography July 2018-patient underwent direct stenting of the ostial left main with drug-eluting stent angioplasty and stenting (more content not included)... Normal [facility] CARDIAC STRESS/REST INJE CTIONon 08-19-2021 [facility] CARDIAC STRESS/REST INJECTION Patient Name: SANCHEZ MERRITT STUDY: MYOCARDIAL PERFUSION STRESS TEST WITH LEXISCAN Performing facility: [facility], [address] [place] [address], [address], [place] [address] [facility] Provider: Tracey Pitt DO, FACC PCP: Dr. Young Lentz Supervising provider: Ludwig South MD, FACC INDICATION: CAD; ICM SOB; HISTORY: Gender: F; Age: 76 y/o ; Height: 160.02 cm; Weight: 58.024792 kg. High Cholesterol; CAD; SOB; COPD; Quit smoking 12 years ago. Cardiac catheterization on 2018. PTCA on 2018. COMPARISON: No comparison. ACCESSION NUMBER(S): [id number]; [id number]; [id number] ORDERING CLINICIAN: TRACEY PITT TECHNIQUE: ONE DAY protocol. Stress injection: Date:08-19-21, 35.6 mCi of Myoview IV 20 seconds after rapid injection of Lexiscan. Rest injection: Date: 08-19-21, 11.3 mCi of Myoview IV at rest. The patient had a rapid injection of 0.4 mg of Lexiscan IV over 10 seconds. Imaging was performed by gated tomographic technique. Reason for Lexiscan: Leg amputation STRESS TEST DATA: Resting heart rate was 82 BPM. Resting blood pressure was 104/60 mmHg. Peak blood pressure was 70/42 mmHg. Peak heart rate was 96 BPM. TEST TERMINATED DUE TO: Protocol completed FINDINGS: STRESS TEST RESULTS: Resting electrocardiogram revealed normal sinus rhythm. There were no significant ischemic ECG changes or dysrhythmias. The patient did not have chest pains/symptoms during procedure. There was a normal recovery phase. IMAGING RESULTS: Image quality was good. Rest and stress tomographic images were reviewed and revealed normal perfusion without evidence of ischemia, myocardial infarction, or left ventricular dilatation with stress. Overall left ventricular systolic function appeared to be normal without regional wall motion abnormalities. Ejection fraction was 72%. TID is 0.93 and is normal. There were no evidence of attenuation artifact. IMPRESSION: Normal Lexiscan Myoview cardiac perfusion stress test. No evidence of ischemia or myocardial infarction by perfusion imaging. Normal left ventricular systolic function, ejection fraction 72%. No previous study available for comparison. Electronically signed by: GHULAM RIVERA MD Normal [facility] No Panel Informationon 08-19 [facility] 250 DO Work Phone: Office Visit (Cardiology)on 08-07-2021 Follow-up visit Diagnoses/Problems Health Maintenance/Risks Encounter for preventive health examination (V70.0) (Z00.00) Assessed Arteriosclerosis of coronary artery (414.00) (I25.10) Ischemic cardiomyopathy (414.8) (I25.5) Hyperlipidemia (272.4) (E78.5) Shortness of breath (786.05) (R06.02) Former smoker (V15.82) (Z87.891) Quit cigs 2009 Orders Arteriosclerosis of coronary artery Renew: Aspirin 81 MG Oral Tablet Delayed Release; TAKE 1 TABLET DAILY Arteriosclerosis of coronary artery, Ischemic cardiomyopathy, Shortness of breath NM Cardiac Stress/Rest Nuclear Med Order; Status:Hold For - Scheduling,Retrospecti ve Authorization; Requested for:07Aug2021; Radiologist to Determine Optimal Study : Y What are the patient's signs and symptoms? : SOB Health Maintenance PHQ2 Screen Positive; Status:Complete - Retrospective Authorization; Done: [id number] SocHx: Former smoker Tobacco Use Screening; Status:Complete; Done: [id number] Patient Instructions Please bring all medicines, vitamins, and herbal supplements with you when you come to the office. Prescriptions will not be filled unless you are compliant with your follow up appointments or have a follow up appointment scheduled as per instruction of your physician. Refills should be requested at the time of your visit. Follow up in [6 ] months Chief Complaint SANCHEZ MERRITT is being seen for a 6 month follow-up of. History of Present Illness Mrs. Merritt is a 76-year-old female seen back today for follow-up on her history of coronary disease. She had previous coronary intervention with stent placement to the ostial left main as well as mid right coronary arteries that was done in July 2018. She indicates that her symptoms prior to her intervention was shortness of breath. She does not have pain or pressure. She also has significant COPD secondary to previous cigarette smoking but she did quit smoking. She also has peripheral vascular disease with a left above-knee amputation. Ejection fraction is typically been estimated at around 50%. She indicates that her breathing has progressively worsened again. She does not believe there is been really any change to her pulmonary status. Physical exam: Neck: There are soft bilateral carotid bruits Lungs: Clear Heart: Regular rate and rhythm with a grade 2/6 systolic murmur at the left sternal border Extremities no significant edema on the right side left his amputation. Recommendation is for her to undergo a Lexiscan stress test given her worsened shortness of breath with activity. This seems to have been her previous anginal equivalent type symptom. She will be seen back after stress testing is completed. No change made to medications. 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 Amitriptyline HCl - 10 MG Oral TabletTAKE 1 TABLET BY MOUTH EVERYDAY AT BEDTIME Aspirin 81 MG Oral Tablet Delayed ReleaseTAKE 1 TABLET DAILY. Atorvastatin Calcium 20 MG Oral TabletTAKE 1 TABLET AT BEDTIME. Carvedilol 3.125 MG Oral TabletTAKE 1 TABLET TWICE DAILY WITH MEALS. Clopidogrel Bisulfate 75 MG Oral TabletTAKE 1 TABLET DAILY. Docusate Sodium 100 MG Oral CapsuleTAKE 1 CAPSULE TWICE DAILY. DULoxetine HCl - 30 MG Oral Capsule Delayed Release ParticlesTAKE 1 CAPSULE TWICE DAILY. Gabapentin 800 MG Oral TabletTAKE 1 TABLET BY MOUTH THREE TIMES A DAY Lisinopril 2.5 MG Oral TabletTAKE 1 TABLET DAILY. Multi Vitamin TABSTAKE 1 TABLET DAILY. Nitroglycerin 0.4 MG Sublingual Tablet SublingualPLACE 1 TABLET UNDER THE TONGUE EVERY 5 MINUTES UP TO 3 DOSES NEEDED FOR CHEST PAIN. Ondansetron HCl - 4 MG Oral TabletTAKE 1 TABLET 3 times daily Pantoprazole Sodium 40 MG Oral Tablet Delayed ReleaseTAKE 1 TABLET DAILY. ProAir HFA 108 (90 Base) MCG/ACT Inhalation Aerosol SolutionINHALE 1 PUFF EVERY 4 HOURS NEEDED. Spironolactone 25 MG Oral TabletTAKE 1 TABLET DAILY. Symbicort 80-4.5 MCG/ACT Inhalation AerosolUSE DIRECTED. Patient did not bring medication list or bottles. Updated verbally with patient Allergies Medication vancomycin Hives;; Recorded By: Charles Pond; 04/08/2021 12:33:33 PM Social History Problems Daily caffeine consumption, 2-3 servings a day 1 cup of coffee daily Former smoker (V15.82) (Z87.891) Quit cigs 2009 No alcohol use No illicit drug use Review of Systems Constitutional: not feeling tired. Cardiovascular: no intermittent leg claudication and as noted in HPI. Respiratory: (more content not included)... Normal [facility] Tobacco Screening.on 022 Adult depression screening assessment Yes [facility] 250 DO Work Phone: Fall risk assessment a) No falls within the last year [facility] 250 DO Work Phone: Tobacco use status [facility] b) No [facility] 250 DO Work Phone: Tobacco Screening. 2-More than half the days [facility] 250 DO Work Phone: Tobacco Screening. 1-Several days [facility] 250 DO Work Phone: Tobacco Screening. 0-Not at all [facility] 250 DO Work Phone: Tobacco Screening. 3-Nearly every day [facility] 250 DO Work Phone: Tobacco Screening. Somewhat Difficult [facility] Marta Arango DO Work Phone: CNOVon 05-23-2021 CNOV Office Visit (PAINCC ) SANCHEZ MERRITT ([id number]) 1945 F Date Time Provider Department 05/23/21 10:30 AM CHAVEZ DILLARD During your visit today, we recorded the following information about you: Pulse Respiration 89/minute 16/minute Chavez Dillard MD 06/10/2021 6:12 PM Signed Referring Or Consulting Physician: SELF CHIEF COMPLAINT: pain in my left stump aka left leg HPI: This is a 76 year old female here for evaluation of pain that began about 3 years ago following A left aka due to veins collasping At this point, the pain is located in the areas detailed above (see cc). The patient describes the pain as aching, sharp, soreness, stabbing and tingling and is a 5/10 in severity but can get hirer on the pain scale. It is constant and waxes and wanes The pain is exacerbated by weariing leg and laying on the left side and is mitigated by nothing. In the past, the patient has been treated with injectionss. The patient is currently taking gabapentin for pain with no relief . In the past, the patient has been treated with the following interventional pain procedures: Seen pain management in [facility] Did an injection with no relief Dr Bella no longer sees this provider . Relevant [place] records were reviewed. Adverse Reaction to Medication: khurram Opioid Agreement: No Receiving Disability Income: No Last Date/Time Patient had Opioid Medication: Imaging Studies: unknown -------- Is the patient receiving analgesia/pain relief from the current medications? (+) Has the current medication improved activities of daily living? (+) Have the current medications been associated with any adverse events? (-) Has the patient displayed any aberrant drug-related behaviors? (-) Illicit drug use? (-) -------- Patient denies loss of bowel or bladder control, unintentional weight loss, h/o malignancy, fevers/chills/night sweats. PMH: denies PSH: denies Social History Tobacco Use - Smoking status: no - Smokeless tobacco: No Substance Use Topics - Alcohol use: No - Drug use: No FH: Patient denies a family history of the current chief complaint. Allergy: nkda Meds: denies REVIEW OF SYSTEMS: GENERAL: weight loss (-), malaise(+), fevers (-) HEENT: thrush(-), epistaxis(-) NECK: Negative for neck swelling. RESPIRATORY: Negative for cough, wheezing or shortness of breath (+). CARDIOVASCULAR: chest pain(-), leg swelling(-) or palpitations(-) GI: abdominal discomfort(-), blood in stools/melena/change in bowel habits(-). MUSCULOSKELETAL: joint pain(+), swelling(-), back pain(-) , muscle pain(-). SKIN: (-) for lesions, rash, and itching. PSYCH: sleep disturbance(+), mood disorder(-), recent psychosocial stressors(-). HEMATOLOGY/LYMPHOLOGY: Negative for prolonged bleeding, easy bruising, or swollen nodes (+) NEURO: Headaches(+), syncope(+), paralysis(-), seizures(-), tremors (-) All other reviewed and negative other than HPI. Scribe attestation: IEmma LPN (May 23, 2021 10:13 AM) attest that this documentation has been prepared under the direction and in the presence of Chavez Dillard MD Electronically Signed: Chavez Dillard MD May 23, 2021 10:13 AM Physician attestation: I, Chavez Dillard MD, personally performed the services described in this documentation. All medical record entries made by the scribe were at my direction and in my presence. Furthermore, I personally performed the physical exam and documented it as such, and agree that the record reflects my personal performance. Electronically Signed: Chavez Dillard MD May 23, 2021 10:13 AM OBJECTIVE: Pulse 89 Resp 16 SpO2 97% PHYSICAL EXAMINATION: GENERAL: Well appearing, in no acute distress PSYCH: Mood and affect is appropriate. Awake, alert, and oriented x 3 SKIN: Skin color, texture, turgor normal, no rashes or lesions HEENT: Normocephalic, atraumatic. PERRLA. RESP: Respirations are unlabored CARD: Regular rate. Cap refill <2s. Extremities pink and well perfused at nailbed GI: Abdomen soft and non-tender MSK: Bilateral upper and lower extremity strength is normal and symmetric. No atrophy or tone abnormalities are noted Cervical: (-)pain to palpation over the cervical paraspinal muscles. Spurling is (-). (-)pain with neck flexion, extension or rotation. Rotation is full on right and left. Axial Loading Test negative, Gandara's sign negative. No obvious deformity or signs of trauma. Normal cervical lordotic curve and full flexion and extension of cervical spine. Lumbar: Straight leg raising in the sitting position is (-) for radicular pain. (more content not included)... Normal [facility] SANCHEZ MERRITT ([id number]) 1945 F Date Time Provider Department 05/23/21 CHAVEZ DILLARD During your visit today, we recorded the following information about you: Lien Hughes LPN 05/23/2021 5:10 PM Signed Spoke with pharmacy and and they made us aware patient was taking Cymbalta 60 from her neurologist and was concern due to her age the amitriptyline. Spoke with and he said if patients neurologist will reduce Cymbalta to 30mgs she can fill the amitriptyline. Spoke with daughter and gave her message above she will get back with us to let us know once she speaks with her doctor. Shyann Lew RN 05/28/2021 10:17 AM Signed Daughter calling back with update. States she spoke with neurologist and he is agreeable to cutting her Cymbalta down to 30 mg. She will proceed with filling Amitriptyline as ordered. She is also asking for an order for a tens unit be called to [facility] in [place]. States it was discussed at last OV. Please advise. Cleopatra King LPN 05/28/2021 11:50 AM Signed Called the patient and advised that normally Lien Hughes LPN 05/28/2021 12:02 PM Signed Tens unit was sent to [facility]. Cleopatra King LPN 05/28/2021 1:25 PM Signed Patient was notified that order was sent to [facility] and they would contact her. Allergies As of Date: 05/23/2021 (Not on File) Date Reviewed: Never Reviewed Reason for Visit: Medication Problem [65] Prescriptions as of 05/28/2021 - multivitamin with folic acid (THERA, ONE DAILY) 400 mcg Take by mouth. - acetaminophen 325 mg cap Take 650 mg by mouth. - albuterol HFA (PROVENTIL HFA, VENTOLIN HFA) 90 mcg/actuation inhaler 2 Puffs. Two puffs every four hours - atorvastatin (LIPITOR) 20 mg tablet 20 mg. Take one(1) tablet daily at bedtime. - SYMBICORT 80-4.5 mcg/actuation inhaler 2 Puffs. Two puffs twice daily - carvedilol (COREG) 3.125 mg tablet Take one(1) tablet two(2) times daily. - ciclopirox (LOPROX) 0.77 % cream Ciclopirox Active 1 APPLIC Topical Twice daily October 14, 2018 6:41pm - clopidogrel (PLAVIX) 75 mg tablet once daily. - cyclobenzaprine (FLEXERIL) 5 mg tablet Cyclobenzaprine Active 5 MG Oral Three times daily October 25, 2019 12:36pm - cyproheptadine (PERIACTIN) 2 mg/5 mL oral liquid Take 4 mg by mouth. - STOOL SOFTENER 100 mg capsule twice daily. - doxycycline (VIBRA-TABS) 100 mg tablet - gabapentin (NEURONTIN) 800 mg tablet Take one(1) tablet three times daily. - hydrOXYzine pamoate (VISTARIL) 25 mg capsule Take 25 mg by mouth. - lisinopril 2.5 mg tablet Take one(1) tablet daily. - aluminum-magnesium hydroxide-simethicone (MAALOX,MYLANTA,MAG-AL PLUS) 200-200-20 mg/5 mL suspension Take 1 mL by mouth. - DAILY-BLAINE, WITH FOLIC ACID, 400 mcg once daily. - nitroglycerin sublingual (NITROQUICK) 0.4 mg SL tablet Nitroglycerin Active 0.4 MG Sublingual Every 5 minutes x 3 doses August 12, 2018 3:55pm - ondansetron (ZOFRAN) 4 mg tablet every 8 hours as needed. - oxyCODONE IR (ROXICODONE) 10 mg tab Take one tablet every six hours - pantoprazole DR (PROTONIX) 40 mg tablet once daily. - spironolactone (ALDACTONE) 25 mg tablet 25 mg once daily. - amitriptyline (ELAVIL) 10 mg tablet Take 1 tablet by mouth daily at bedtime. - DULoxetine (CYMBALTA) 60 mg capsule Take 60 mg by mouth once daily. Problem List As Of Date: 05/23/2021 (None) Encounter Status:Closed by CLEOPATRA KING on 05/28/21 [facility] Covid-19 PCR (CVDTBH)on SARS-CoV-2 (COVID-19) RNA MEENAKSHI+probe Ql (Unsp spec) Not detected Normal NOT DETECTED [facility] Comment on above: Result Comment: This test is not yet approved or cleared by the [place] FDA. When there are no FDA-approved or cleared tests available, and other criteria are met, FDA can make tests available under an emergency access mechanism called an Emergency Use Authorization (EUA). The EUA for this test is supported by the [employer]an Engineer of Health and Human Service's (HHS's) declaration that circumstances exist to justify the emergency use of in vitro diagnostics for the detection and/or diagnosis of the virus that causes COVID-19. This EUA will remain in effect (meaning this test can be used) for the duration of the COVID-19 declaration justifying emergency of IVDs, unless it is terminated or revoked by FDA (after which the test may no longer be used). When diagnostic testing is negative, the possibility of a false negative should be considered in the context of a patient's recent exposures and the presence of clinical signs and symptoms consistent with SARS-CoV-2. Performed By: #### [facility] ####[facility] [id number] [place] [id number] Aggie XR LSPINE W_OBLS AND FLEX_EX Ton 07-02-2020 XR LSPINE W_OBLS AND FLEX_EXT EXAMINATION: XR LSPINE W_OBLS AND FLEX_EXT HISTORY: Lumbar spondylosis COMPARISON: No relevant comparison available. FINDINGS: BONES: Neutral projection demonstrates 3 mm anterolisthesis of L4 in relation L5. Moderate degenerative spondylosis. Moderate diffuse facet osteoarthropathy. Rotatory levocurvature centered at L2 DISC SPACES: Multilevel disc space narrowing with endplate sclerosis most significant at L1-L2 PARASPINOUS: Negative. No paraspinous abnormality is seen. OTHER: Reduction in anterolisthesis to 2 mm with extension, increased to 5 mm with flexion. Extensive atherosclerosis. Bilateral common iliac and external iliac artery stents IMPRESSION: Moderate degenerative changes 3 mm anterolisthesis of L4 on L5 with mild dynamic instability Electronically authenticated by: LORENA LATIF Date: 2020-07-02 15:09 Normal [facility] CT CHEST HI RESOLUTIONon CT CHEST HI RESOLUTION EXAMINATION: CT CHEST HI RESOLUTION HISTORY: Acute bronchitis co-occurrent with bronchiectasis ; history of COPD, shortness of breath COMPARISON: CT chest 08/08/2018 TECHNIQUE: Axial images were obtained at 10 mm intervals during inspiration and expiration in the supine and prone positions. No IV contrast given. Dose reduction techniques were achieved by using automated exposure control and/or adjustment of mA and/or kV according to patient size and/or use of iterative reconstruction technique. FINDINGS: LUNGS: Marked emphysematous changes. Small amount of scarring within the lateral left upper lobe. No appreciable infiltrates or mass. PLEURA: No mass, effusion, or pneumothorax. LEXIE: No mass or adenopathy. MEDIASTINUM: No mass or adenopathy. CHEST WALL: No mass or axillary adenopathy LIMITED ABDOMEN: No suspicious findings. Limited images of the upper abdomen. OTHER: Negative. IMPRESSION: 1. Marked emphysematous changes without appreciable acute abnormality. 2. Clearing of previously seen pulmonary infiltrates/consolidat ion and pleural effusions. Electronically authenticated by: JOSIE PARIS Date: 2020-06-18 14:59 Normal [facility] XR CHEST 2 Von 02-29-2020 XR CHEST 2 V EXAMINATION: XR CHES T 2 V HISTORY: Centriacinar emphysema COMPARISON: Chest x-ray 04/05/2019 FINDINGS: LUNGS: Expanded lungs with coarsening of interstitial markings. Stable stranding within the left midlung. VASCULATURE: No increased pulmonary vasculature. PLEURA: No pneumothorax, effusion, or pleural thickening. CARDIAC: No cardiomegaly or cardiac silhouette abnormality. MEDIASTINUM: No visible mass or adenopathy. BONES: No fracture or visible bone lesion. OTHER: Rim calcified breast implants. IMPRESSION: 1. Hyper expanded lungs suggestive of COPD, unchanged. 2. Suspect scarring and chronic changes of COPD. No convincing acute infiltrates. Electronically authenticated by: JOSIE PARIS Date: 2020-02-29 09:04 Normal [facility] Vital Signs Date Time Vital Sign Value Performing Clinician Facility 03-01-2023 14:00-0500 Diastolic blood pressure 68 mm[Hg] Adelaida Hargrove MD Work Phone: [facility] 03-01-2023 14:00-0500 Heart rate 68 /min Adelaida Hargrove MD Work Phone: [facility] 03-01-2023 14:00-0500 Systolic blood pressure 110 mm[Hg] Adelaida Hargrove MD Work Phone: [facility] 10-20-2022 13:15-0400 Body height 156.21 cm Margy Olivas Other [facility] Other 10-20-2022 13:15-0400 Body mass index (BMI) [Ratio] 24.16 kg/m2 Margy Olivas Other [facility] Other 10-20-2022 13:15-0400 Body temperature 96.9 [degF] Margy Olivas Other [facility] Other 10-20-2022 13:15-0400 Body weight 58.97 kg Margy Olivas Other [facility] Other 10-20-2022 13:15-0400 Diastolic blood pressure 60 mm[Hg] Margy Olivas Other [facility] Other 10-20-2022 13:15-0400 SaO2% (BldA) [Mass fraction] 93 % Margy Olivas Other [facility] Other 10-20-2022 13:15-0400 Systolic blood pressure 110 mm[Hg] Margy Carpenterprateekmaral Other [facility] Other 09-22-2022 10:00-0400 Body height 156.21 cm John Lentz Other [facility] Other 09-22-2022 10:00-0400 Body mass index (BMI) [Ratio] 24.16 kg/m2 John Lentz Other [facility] Other 05-30-2023 10:00-0400 Body weight 58.97 kg John Lentz Other [facility] Other 09-22-2022 10:00-0400 Diastolic blood pressure 68 mm[Hg] John Lentz Other [facility] Other 09-22-2022 10:00-0400 Systolic blood pressure 117 mm[Hg] John Lentz Other [facility] Other 06-01-2022 11:15-0500 Body height 156.21 cm John Lentz Other [facility] Other 06-01-2022 11:15-0500 Body mass index (BMI) [Ratio] 24.16 kg/m2 John Lentz Other [facility] Other 06-01-2022 11:15-0500 Body weight 58.97 kg John Lentz Other [facility] Other 06-01-2022 11:15-0500 Diastolic blood pressure 60 mm[Hg] John Lentz Other [facility] Other 06-01-2022 11:15-0500 SaO2% (BldA) [Mass fraction] 92 % John Lentz Other [facility] Other 06-01-2022 11:15-0500 Systolic blood pressure 102 mm[Hg] John Lentz Other [facility] Other 02-26-2022 15:00-0400 Body height 160.02 cm John Lentz Work Phone: [facility] 250 DO Work Phone: 02-26-2022 15:00-0400 Body mass index (BMI) [Ratio] Medical Reason Not Done John Lentz Work Phone: [facility] 250 DO Work Phone: 02-26-2022 15:00-0400 Diastolic blood pressure 60 mm[Hg] John Lentz Work Phone: [facility] 250 DO Work Phone: 02-26-2022 15:00-0400 Heart rate 80 /min John Lentz Work Phone: [facility] 250 DO Work Phone: 02-26-2022 15:00-0400 Systolic blood pressure 122 mm[Hg] John Lentz Work Phone: [facility] 250 DO Work Phone: 08-19-2021 12:00-0400 72 1 John Lentz Work Phone: [facility] 250 DO Work Phone: Comment on above: [id number] 08-07-2021 14:55-0400 Body height 160.02 cm John Lentz Work Phone: [facility] 250 DO Work Phone: 08-07-2021 14:55-0400 Diastolic blood pressure 68 mm[Hg] John Lentz Work Phone: [facility] 250 DO Work Phone: 08-07-2021 14:55-0400 Heart rate 89 /min John Lentz Work Phone: [facility] 250 DO Work Phone: 08-07-2021 14:55-0400 Systolic blood pressure 114 mm[Hg] John Lentz Work Phone: [facility] 250 DO Work Phone: 08-07-2021 14:55-0400 10 1 John Lentz Work Phone: [facility] Arango DO Work Phone: Comment on above: PHQ-9 TS Encounters Encounter Date Encounter Type Care Provider Facility Start: 04-14-2023 End: 04-14-2023 ambulatory John Lentz Other [facility] Other Start: 04-14-2023 Telephone [address] Lentz [facility] Start: 04-12-2023 End: 04-12-2023 ambulatory [facility] Start: 04-02-2023 End: 04-02-2023 ambulatory John Lentz Other [facility] Other Start: 04-02-2023 Telephone encounter John Lentz [facility] Start: 03-23-2023 (Televisit) Televisit John Uribe [facility] Start: 03-23-2023 End: 03-23-2023 ambulatory John Lentz Other [facility] Other Start: 03-22-2023 End: 03-22-2023 ambulatory John Lentz Other [facility] Other Start: 03-22-2023 Telephone encounter John Lentz [facility] Start: 03-01-2023 End: 03-01-2023 ambulatory [facility] Start: 03-01-2023 End: 03-01-2023 Office outpatient visit 25 minutes Adelaida Hargrove MD Work Phone: [facility] Comment on above: Arteriosclerosis of coronary artery (Primary Dx); Bilateral carotid bruits; Hyperlipidemia, unspecified hyperlipidemia type; Ischemic cardiomyopathy; Primary hypertension; Stented coronary artery; Chronic obstructive pulmonary disease, unspecified COPD type (CMS/HCC); Wheelchair dependent; Amputation of leg (CMS/HCC); History of right-sided carotid endarterectomy Start: 01-27-2023 End: 01-27-2023 ambulatory John Abhijeet Other [facility] Other Start: 01-27-2023 Telephone encounter John Abhijeet [facility] Start: 01-25-2023 End: 01-25-2023 ambulatory John Lentz Other [facility] Other Start: 01-25-2023 Telephone encounter John Abhijeet [facility] Start: 01-08-2023 End: 01-08-2023 ambulatory John Abhijeet Other [facility] Other Start: 01-08-2023 Telephone encounter John Abhijeet [facility] Start: 12-02-2022 End: 12-02-2022 ambulatory John Lentz Other [facility] Other Start: 12-02-2022 Telephone encounter John Abhijeet [facility] Start: 11-17-2022 End: 11-17-2022 ambulatory Margy Olivas Facility:[facility] Start: 10-20-2022 End: 10-20-2022 ambulatory Margy Olivas Other [facility] Other Start: 10-20-2022 FQ visit new patient Margy Duarte o [facility] Vascular Surgery Start: 09-23-2022 End: 09-23-2022 ambulatory John Lentz Other [facility] Other Start: 09-23-2022 Telephone encounter John Abhijeet [facility] Start: 09-22-2022 End: 09-22-2022 ambulatory John Lentz Other [facility] Other Start: 09-22-2022 Office outpatient vi sit [address] [facility] Start: 09-22-2022 Telephone encounter John Lentz [facility] Start: 08-13-2022 Rx Renewal John Lentz Work Phone: [facility] 250 DO Work Phone: Start: 07-15-2022 End: 07-15-2022 ambulatory John Lentz Other [facility] Other Start: 07-15-2022 Telephone encounter John Lentz [facility] Start: 06-01-2022 End: 06-01-2022 ambulatory John Lentz Other [facility] Other Start: 06-01-2022 Office outpatient vi sit [address] [facility] Start: 05-05-2022 End: 05-05-2022 ambulatory John Lentz Other [facility] Other Start: 05-05-2022 Telephone encounter John Lentz [facility] Start: 04-17-2022 Chart Update John Lentz Work Phone: [facility] 250 DO Work Phone: Start: 04-13-[address] Adelaida Griggs ty:[id number] Start: 02-26-2022 Office outpatient vi sit 25 minutes John Lentz Work Phone: [facility] 250 DO Work Phone: Start: 02-26-[address] Adelaida Griggs ty:[id number] Start: 12-12-2021 Pre-procedure evalua tion check John Lentz Other [facility] Other Start: 09-11-2021 Rx Renewal John Lentz Work Phone: [facility] 250 DO Work Phone: Start: 09-08-2021 Rx Renewal John Lentz Work Phone: [facility] 250 DO Work Phone: Start: 05-09-2022 Chart Update John Lentz Work Phone: [facility] 250 DO Work Phone: Start: 08-19-[address] Tracey Pitt Facility:[id number] Start: 08-07-2021 Office outpatient vi sit 25 minutes John Lentz Work Phone: [facility] 250 DO Work Phone: Start: 08-07-[address] John Lentz Facility: Start: 07-21-2021 Rx Renewal John Lentz Work Phone: [facility] 250 DO Work Phone: Start: 01-14-[address] [facility] Start: 12-09-2020 End: 12-10-[address] JOHN LENTZ Facility:H1 Start: 11-28-2020 End: 11-28-[address] JOHN LENTZ Facility:[facility]1 Start: 10-29-2020 End: 10-30-[address] DORA BELLA Facility:[facility]1 Start: 10-24-2020 End: 10-24-[address] JOHN LENTZ Facility:[facility]1 Start: 10-15-2020 End: 10-16-[address] DORA BELLA Facility:[facility]1 Start: 10-04-2020 Encounter for preprocedural laboratory examination DR DORA BELLA [facility] Start: 10-01-2020 End: 10-01-[address] DORA BELLA Facility:[facility]1 Start: 09-26-2020 End: 09-27-[address] DORA BELLA Facility:[facility]1 Start: 09-26-2020 End: 09-27-2020 Encounter for preprocedural laboratory examination DR DORA BELLA Facility:[facility]1 Start: 08-19-2020 End: 08-20-[address] DORA BELLA Facility:[facility]1 Start: 07-30-2020 End: 07-30-[address] DORA BELLA Facility:[facility]1 Start: 07-02-2020 End: 07-03-2020 ambulatory HEMANT RED Facility:H1 Start: 07-01-2020 End: 07-02-[address] DORA BELLA Facility:[facility]1 Start: 06-18-2020 End: 06-19-[address] JOHN LENTZ Facility:[facility]1 Start: 06-03-2020 End: 06-04-[address] JOHN LENTZ Facility:[facility]1 Start: 02-29-2020 End: 03-01-[address] JOHN LENTZ Facility:[facility]1 Procedures Date Procedure Procedure Detail Performing Clinician Start: 03-01-2023 History of carotid endarterectomy History of right-sided carotid endarterectomy Adelaida Hargrove MD Work Phone: Start: 05-19-2016 General examination of patient John Lentz Other Amputation of lower limb Chelsy Lentz Work Phone: Cataract surgery John marcano Work Phone: Depression screening John Lentz Other Percutaneous transluminal angioplasty of carotid artery John Lentz Work Phone: Percutaneous transluminal coronary angioplasty John Lentz Work Phone: Tonsillectomy and adenoidectomy John Lentz Work Phone: Total colonoscopy John wagner Work Phone: Comment on above: [id number]; Plan of Treatment Date Care Activity Detail Author Start: 08-16-2028 DTaP/Tdap/Td Vaccine s (2 - Td or Tdap) DTaP/Tdap/Td Vaccines (2 - Td or Tdap) [facility] Start: 11-08-2023 End: 11-08-2023 Patient encounter procedure 11/08/2023 1:15 PM EDT Office Visit [facility] [address] [facility] [address] [place] [address] Adelaida Hargrove MD [address] [place] [address] [address] [place] [address] [facility] Start: 03-01-2023 FUV, Provider: Adelaida Hargrove, Status: Pen, Time: 2:00 PM FUV, Provider: Adelaida Hargrove, Status: Pen, Time: 2:00 PM [facility] 250 DO Work Phone: Start: 03-01-2023 End: 03-01-2024 Comprehensive metabolic 2000 panel - Serum or Plasma Comprehensive Metabolic Panel Lab Routine Arteriosclerosis of coronary artery Primary hypertension Stented coronary artery Expected: 03/01/2023 (Approximate), Expires: 03/01/2024 [facility] Service Area Work Phone: Comment on above: Expected: 03/01/2023 (Approximate), Expires: 03/01/2024 Start: 03-01-2023 End: 03-01-2024 Lipid 1996 panel - Serum or Plasma Lipid Panel Lab Routine Hyperlipidemia, unspecified hyperlipidemia type Expected: 03/01/2023 (Approximate), Expires: 03/01/[address] [facility] Work Phone: Comment on above: Expected: 03/01/2023 (Approximate), Expires: 03/01/2024 Start: 12-25-2022 Influenza vaccination Influenza Vacc ine (#1) [facility] Start: 04-13-2022 CAROTID, Provider: [facility] ULTRASOUND 01,[id number], Status: Pen, Time: 10:45 AM CAROTID, Provider: [facility] ULTRASOUND 01,[id number], Status: Pen, Time: 10:45 AM [facility] Work Phone: Start: 04-13-2022 ECHO, Provider: [facility] ULTRASOUND 01,[id number], Status: Pen, Time: 10:45 AM ECHO, Provider: [facility] ULTRASOUND 01,[id number], Status: Pen, Time: 10:45 AM [facility] 250 DO Work Phone: Start: 01-29-2022 FUV, Provider: Adelaida Hargrove, Status: Pen, Time: 1:00 PM FUV, Provider: Adelaida Hargrvoe, Status: Pen, Time: 1:00 PM [facility] 250 DO Work Phone: Start: 08-19-2021 STRESS NUC, Provider : [facility] THOMASI NUCLEAR 01,[id number], Status: Pen, Time: 12:00 PM STRESS NUC, Provider: [facility] NUCLEAR 01,[id number], Status: Pen, Time: 12:00 PM [facility] 250 DO Work Phone: Start: 08-07-2021 FUV, Provider: Tracey Pitt, Status: Pen, Time: 2:45 PM FUV, Provider: Tracey Pitt, Status: Pen, Time: 2:45 PM [facility] 250 DO Work Phone: Start: 06-08-2021 COVID-19 Vaccine (4 - Moderna series) COVID-19 Vaccine (4 - Moderna series) [facility] Start: 11-24-2018 Pneumococcal Vaccine : 65+ Years (2 - PPSV23 or PCV20) Pneumococcal Vaccine: 65+ Years (2 - PPSV23 or PCV20) [facility] Start: 1993 Zoster Vaccines (1 o f 2) Zoster Vaccines (1 of 2) [facility] Start: 1961 Diabetes mellitus screening Diabetes Screening [facility] Start: 1961 Hepatitis C screening Hepatitis C [facility] Start: 1943 Lipid panel Lipid Panel [facility] Start: 1945 Medicare Annual Wellness Visit Medicare Annual Wellness Visit (AWV) [facility] Start: 1945 Screening for osteoporosis Bone Density Scan [facility] Immunizations Immunization Date Immunization Notes Care Provider Fa sendy 04-13-2021 Pfizer-BioNTech COVID-19 Vacc 30 MCG/0.3ML Intramuscular Suspension John Lentz Work Phone: [facility] 250 DO Work Phone: 07-02-2020 Moderna COVID-19 Vaccine 100 MCG/0.5ML Intramuscular Suspension John Lentz Work Phone: [facility] 250 DO Work Phone: 06-03-2020 Moderna COVID-19 Vaccine 100 MCG/0.5ML Intramuscular Suspension John Lentz Work Phone: [place] [address] DO Work Phone: 09-29-2018 pneumococcal conjuga te vaccine, 13 valent John Lentz Work Phone: [place] [address] DO Work Phone: 08-16-2018 tetanus toxoid, redu luis diphtheria toxoid, and acellular pertussis vaccine, adsorbed Adelaida Hargrove MD Work Phone: [facility] Work Phone: 02-16-2017 influenza virus vaccine, split virus (incl. purified surface antigen) John Lentz Other [facility] Other 02-16-2017 influenza, high dose seasonal, preservative-free John Lentz Work Phone: [place] [address] DO Work Phone: 02-16-2017 influenza virus vaccine, unspecified formulation Adelaida Hargrove MD Work Phone: [facility] Work Phone: 01-24-2017 influenza virus vaccine, unspecified formulation John Lentz Work Phone: [facility] DO Work Phone: 01-25-2016 influenza virus vaccine, split virus (incl. purified surface antigen) John Lentz Other [facility] Other 01-25-2016 influenza, high dose seasonal, preservative-free John Lentz Work Phone: [facility] Work Phone: 03-02-2015 influenza, injectabl e, quadrivalent, preservative free John Lentz Work Phone: [facility] 250 DO Work Phone: 03-02-2015 tetanus and diphther ia toxoids, adsorbed, preservative free, for adult use (5 Lf of tetanus toxoid and 2 Lf of diphtheria toxoid) John Lentz Other [facility] Other 02-12-2009 pneumococcal conjuga te vaccine, 7 valent Johnabimael Lentz Work Phone: [facility] 250 DO Work Phone: 01-30-2009 influenza virus vaccine, whole virus John Kevin Lentz Work Phone: [facility] 250 DO Work Phone: Payers Date Payer Category Payer Unknown [id number] 2016 Unknown 2016 Unknown [id number] 2008 Medicare MEDICARE MEDICAR E PART A AND B [id number] 2008-Present [address] [place] [address] [id number] 1959 Medicare [id number] 1959 Self-pay 1959 Unknown [id number] 1943 Unknown [id number] 2.16.840.1.488656.3.579.2.593 1943 Unknown [id number] 2.16.840.1.338255.3.579.2.593 1943 Unknown [id number] 2.16.840.1.281631.3.579.2.593 1943 Unknown [id number] 2.16.840.1.554859.3.579.2.593 1943 Unknown [id number] 2.16.840.1.661912.3.579.2.593 1943 Unknown [id number] 2.16.840.1.340897.3.579.2.593 1943 Unknown [id number] 2.16.840.1.510635.3.579.2.593 1943 Unknown [id number] 2.16.840.1.468467.3.579.2.593 1943 Unknown [id number] 2.16.840.1.089527.3.579.2.593 1943 Unknown [id number] 2.16.840.1.521847.3.579.2.593 1943 Unknown [id number] 2.16.840.1.738246.3.579.2.593 1943 Unknown [id number] 2.16.840.1.438691.3.579.2.593 1943 Unknown [id number] 2.16.840.1.698587.3.579.2.593 1943 Unknown [id number] 2.16.840.1.659315.3.579.2.593 1943 Unknown [id number] 2.16.840.1.462477.3.579.2.356 1943 Unknown [id number] 2.16.840.1.661997.3.579.2.356 1943 Unknown [id number] 2.16.840.1.614430.3.579.2.1068 1943 Unknown [id number] 2.16.840.1.567404.3.579.2.1068 1943 Unknown [id number] 2.16.840.1.311503.3.579.2.1244 Unknown [id number] 2.16.840.1.950797.3.579.2.593 Unknown [id number] 2.16.840.1.035839.3.579.2.593 Unknown [id number] 2.16.840.1.726702.3.579.2.531 Social History Date Type Detail Facility Start: 08-07-2021 End: 03-01-2023 Daily caffeine consumption, 2-3 servings a day Daily caffeine consumption, 2-3 servings a day [facility] Comment on above: Quit cigs 2009; 1 cup of coffee harshil y; Start: 08-07-2021 End: 03-01-2023 Sex Assigned At [facility] Start: 03-01-2023 Tobacco smoking stat us NHIS Ex-smoker [facility] End: 04-26-2009 History of tobacco use Current smoker [facility] Work Phone: End: 04-26-2009 History of tobacco use Cigarette Smoker [facility] Work Phone: Start: 03-01-2023 Tobacco use and exposure Smokeless tobacco non-user [facility] Work Phone: Start: 03-01-2023 Alcohol intake Lifetime non-d annemarie (finding) [facility] Work Phone: Start: 1945 [facility]igned [facility]: Start: 02-19-2023 End: 03-01-2023 Exposure to SARS-CoV-2 (event) Not sure [facility] Functional Status Date Assessment Result Facility 08-07-2021 PHQ-9 [id number] Moderate (10-14) -[facility] DO Work Phone: Clinical Notes 07-25-2018 to 04-14-2023 Note Date & Type Note Facility 04-14-2023 Evaluation note Encounter Date Diagnosis Assessment Notes Mar, Confusion (ICD-10 - R41.0) [facility] Other [id number] [facility] Note-stable, concerns for hypotension given first BP in office had [facility]-recovered EF per recent echo 03/2023 EF 55-60% -NYHA unable to asses given wheel chair bound and left AKA< she does state she is able to do basic ADLs -GDMT: stop lisionpril given hypotension, stop coreg, Will start toprol xl 25mg daily and do event monitor to watch for RVR -prioritizing rate control at this time -continue aldactone 25mg, start toprol xl 25mgUnLancaster [facility]12-18-2023 Note-s/p left AKAUniversity [facility] Note-noted in hx, sees a vascular [facility]Un[facility] 04-12-2023 Note-s/p stent to RCA and ostial left main in 2019 -will increase to high intensity statin 40mg lipitor given she is done drinking -stop ASA and start eliquis 2.5mg BID for AF, ct plavix -noted to not be a good candidate for CABG given resp diseaseUnLancaster [facility] Hospital12-18-2023 Note- stable, she is on supplemental O2 as needed - she may not be a great candidate for [facility]iod[facility]oneUnivers[facility]12-[facility]-2023 NoteNew patient here to establish care. She was recently discharged from [facility] for new onset afib. AC was not started. She has a right carotid stent that was placed years ago at [facility]. She does not still follow with vascular surgeon. She is transferring cardiology care from [facility] to [place]. Review of Systems Cardiovascular: Positive for dyspnea on exertion and leg swelling (RLE). Respiratory: Positive for cough and shortness of breath. All other systems reviewed and are negative.[facility] 04-12-2023 NoteUT Electrophysiology Consult Note Reason for visit: afib, CAD, new pt HPI: Sanchez Merritt is a 78 y.o. year old with past medical history of Past cigarette smoker quit in 2009, PAD vascular disease in multiple areas s/p left AKA, history of right carotid endarterectomy, bilateral carotid bruit and bruits heard in supraclavicular and infraclavicular areas, COPD with as needed supplemental O2, hypertension, diastolic dysfunction, CAD with severe 2 vessel disease s/p stent of ostial left main with RAYNA and RAYNA to mid RCA per cardiology, 07/2018 EF noted to 25% due to ischemic cardiomyopathy with recovery of EF 10/2018 KEZIA EF 50%, normal Lexiscan stress test 08/19/2021 with EF noted 72% She was to follow-up with cardiology and is switching to [facility] She was admitted to [facility] with new onset A-fib, alcohol withdrawal which was treated with benzodiazepines, sepsis, respiratory failure, COPD exacerbation all likely due to COVID infection, she was discharged 04/01/2023. 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 she does have chronic mild lower extremity edema of right lower extremity which is stable and she is on Aldactone discussed with patient and son that she will need to be on antiplatelet and DOAC given AF and CAD, will need to increase Lipitor to high intensity dose will unfortunately need to discontinue some of her medications to make room in her blood pressure to start medications for rate control of her A-fib Accompanied by son ECG 04/12/2023 A-fib heart rate in the 90s PMH: Past Medical History: Diagnosis Date Abnormal ECG Alcohol abuse Arrhythmia Atrial fibrillation (CMS/HCC) COPD (chronic obstructive pulmonary disease) (CMS/HCC) Hyperlipidemia PSH: No past surgical history on file. SH: Social Determinants of Health Tobacco Use: Not on file Alcohol Use: Not on file Financial Resource Strain: Not on file Food Insecurity: Not on file Transportation Needs: Not on file Physical Activity: Not on file Stress: Not on file Social Connections: Not on file Intimate Partner Violence: Not on file Depression: Not on file Housing Stability: Not on file Allergies: Allergies Allergen Reactions Bacitracin Itching Neomycin Itching Polymyxin B Sulfate-Hc Itching Vancomycin Hives and Itching Weight: 59kg Visit Vitals BP 80/53 (BP Location: Right arm, Patient Position: Sitting) Pulse (!) 124 Ht 1.6 m (5' 3 ) Wt 59 kg (130 lb) Comment: stated SpO2 (!) 87% BMI 23.03 kg/m??? BSA 1.62 m??? Meds: Current Outpatient Medications on File Prior to Visit Medication Sig Dispense Refill albuterol 90 mcg/actuation inhaler Inhale 1 puff every 4 (four) hours if needed. aspirin 81 mg EC tablet Take 81 mg by mouth in the morning. atorvastatin (Lipitor) 20 mg tablet TAKE 1 TABLET (20 MG) BY MOUTH ONCE DAILY AT BEDTIME. carvedilol (Coreg) 3.125 mg tablet Take 3.125 mg by mouth with breakfast and with evening meal. clopidogrel (Plavix) 75 mg tablet Take 75 mg by mouth in the morning. DULoxetine (Cymbalta) [address] capsule Take 60 mg by mouth in the morning. gabapentin (Neurontin) 800 mg tablet Take 800 mg by mouth in the morning, afternoon, and at bedtime. lisinopril 2.5 mg tablet Take 2.5 mg by mouth in the morning. nitroglycerin (Nitrostat) 0.[address] 0.4 mg under the tongue. pantoprazole (ProtoNix) 40 mg EC tablet Take 40 mg by mouth in the morning. spironolactone (Aldactone) 25 mg tablet Take 25 mg by mouth in the morning. Symbicort 160-4.5 mcg/actuation inhaler tiZANidine (Zanaflex) 4 mg tablet Take 4 mg by mouth in the morning. No current facility-administered medications on file prior to visit. ROS: Cardio Basic Cardiovascular Symptoms: no lightheadedness, no leg edema, no syncope, no orthopnea, no PND, no claudication, Constitutional Constitutional: no fever, no night sweats, no significant weight gain, no significant weight loss, no exercise intolerance Eyes Eyes: no dry eyes, no irritation, no vision change ENMT Ears: no difficulty hearing, no ear pain Nose: no frequent nosebleeds, Mouth/Throat: no sore throat, no bleeding gums, no snoring, no dry mouth, no mouth ulcers, no oral abnormalities, no teeth problems Respiratory Respiratory: no cough, no wheezing, no coughing up blood, no sleep apnea Musculoskeletal Musculoskeletal: no muscle aches, no muscle weakness, joint pain+, no back pain, no swelling in the extremities Integumentary Skin no rash, no ulcer, no varicosities, no discoloration, no pruritus Neurologic Neurologic: no loss of consciousness, no weakness, no numbness, no seizures, no dizziness, no headaches Psychiatric Psych: no depression, feeling safe in r (more content not included)...[facility]11-28-2023 Evaluation note* Encounter Date Diagnosis Assessment Notes Treatment Notes Treatment Clinical Notes Feb, Acute COVID-19 (ICD-10 - U07.1) Paxlovid ordered. Hold plavix while on rx. ER if symptoms worsen. Feb, Chronic obstructive pulmonary disease, unspecified (ICD-10 - J44.9) Reviewed PFTs from 04/09/17. They're consistent with anatomical emphysema. She is borderline severe with FEV1 of 51%. Stress with patient that this may be actual progression of her disease. She is been on Symbicort for years. Does not appear that she is ever been on a LAMA such as Spiriva. Plan is to add Incruse one puff daily, and if this is not covered, a LAMA is on her insurance formulary. She is to continue Symbicort 2 puffs twice daily. Use Ventolin or nebulizer as needed. Will see patient back in 3 weeks to evaluate response. Patient should continue with the above and we will continue to monitor. Pay attention to any changes in shortness of breath such as patterns or other associated symptoms [facility] Other 11-27-2023 Evaluation note* Encounter Date Diagnosis Assessment Notes Treatment Notes Treatment Clinical Notes Feb, Chronic pain (ICD-10 - G89.29) [facility] Other 11-06-2023 History of Present illness Narrative* Adelaida Hargrove MD - 03/01/2023 2:00 PM EST Last seen 02/2022 : Subjective : Patient is accompanied by her son to the office. She denies any chest discomfort pressure tightnessor heaviness or palpitations and has not had any falls. Reviewed lab results and results of recent carotid ultrasound which does not show any critical carotid disease. History so Far : She had previous coronary intervention with stent placement to the ostial left main as well as mid right coronary arteries that was done in July 2018. She indicates that her symptoms prior to her intervention was shortness of breath. She does not have pain or pressure. She also has significant COPD secondary to previous cigarette smoking but she did quit smoking. She also has peripheral vasculardisease with a left above-knee amputation.1,2 [place]. Objective Wt Readings from Last 3 Encounters: No data found for Wt Physical Exam: On examination she has evidence of COPD. She has a right carotid endarterectomy scar, bilateral carotid bruit, breath sounds are very distant heart sounds are regular, there is no peripheral edema in the right lower extremity. Foot is warm to touch. She gets around in a 3 wheeled scooter when she is in the house. She quit cigarettes in 2009. Meds: Current Outpatient Medications Medication Instructions albuterol (ProAir HFA) 90 mcg/actuation inhaler 1 puff, inhalation, Every 4 hours PRN aspirin 81 mg EC tablet 1 tablet, oral, Daily atorvastatin (Lipitor) 20 mg tablet 1 tablet, oral, Nightly budesonide-formoteroL (Symbicort) 80-4.5 mcg/actuation inhaler inhalation, Use as directed carvedilol (Coreg) 3.125 mg tablet 1 tablet, oral, 2 times daily with meals clopidogrel (Plavix) 75 mg tablet 1 tablet, oral, Daily docusate sodium (Colace) 100 mg capsule 1 capsule, oral, 2 times daily DULoxetine (CYMBALTA) 60 mg, oral, 3 times daily gabapentin (NEURONTIN) 600 mg, oral, 3 times daily lisinopril 2.5 mg tablet 1 tablet, oral, Daily multivit-min/ferrous fumarate (MULTI VITAMIN ORAL) 1 tablet, oral, Daily nitroglycerin (NITROSTAT) 0.4 mg, sublingual, Every 5 min PRN ondansetron (Zofran) 4 mg tablet 1 tablet, oral, 3 times daily oxyCODONE ER (OXYCONTIN) 10 mg, oral, Every 12 hours, Do not crush, chew, or split. pantoprazole (ProtoNix) 40 mg EC tablet 1 tablet, oral, Daily spironolactone (Aldactone) 25 mg tablet 1 tablet, oral, Daily Symbicort 160-4.5 mcg/actuation inhaler Allergies Allergen Reactions Vancomycin Hives Reviewed laboratory data from September 2022, sodium 135 potassium 4.2 creatinine 0.79 GFR 76. I do not see a lipid profile. Hemoglobin was 11.5 Problem List: Patient Active Problem List Diagnosis Date Noted Amputation of leg ([facility]) 03/01/2023 History of right-sided carotid endarterectomy 03/01/2023 Arteriosclerosis of coronary artery 02/26/2023 Bilateral carotid bruits 02/26/2023 Chronic obstructive pulmonary disease (CMS/HCC) 02/26/2023 Hyperlipidemia 02/26/2023 Ischemic cardiomyopathy 02/26/2023 Primary hypertension 02/26/2023 Shortness of breath 02/26/2023 Stented coronary artery 02/26/2023 Wheelchair dependent 02/26/2023 Former smoker 02/26/2023 Assessment: 1. Long history of nicotine addiction, quit in 2009 2. Vascular disease in multiple territories, status post left above-knee amputation, was examined in a wheelchair today, gets around in a 3 wheeled scooter at home, reports no falls 3. Right carotid endarterectomy scar and bilateral carotid bruit, symmetric left upper extremity pulses. Bruits are also heard in the supraclavicular and infraclavicular area bilaterally. 4. COPD on examination 5. Hypertension-at target 6. Lexiscan Myoview July 2021-LVEF 72%, transient ischemic dilatation 0.93, no evidence of attenuation artifact. 7. Echocardiogram October 2018-LVEF 50 to 55%, left atrial diameter 3.4 cm, impaired relaxation pattern of LV diastolic filling, no pericardial effusion, RV systolic pressure 36 mmHg 8. Coronary angiography July 2018-patient underwent direct stenting of the ostial left main with drug-eluting stent angioplasty and stenting drug-eluting to the mid RCA. This occurred in the settingof non-ST elevation myocardial infarction. LV ejection fraction at that time was reported to be 25%. There was inferior akinesis. Poor candidate for bypass surgery due to severe respiratory failure and chronic severe COPD. 8. Carotid ultrasound March 2022-less than 50% bilateral internal carotid artery stenosis with bilateral antegrade vertebral flow Problems addressed today included atherosclerotic kasaan vessel coronary artery disease, hyperlipidemia, cerebrovascular disease, reviewed results of carotid ultrasound, risk factor modification was reiterated lab results were reviewed. Recommendations: 1. No change in cardiac medications at this time 2. Vascular disease is followed by vascular surgery 3. Follow-up in 9 months 4. Comprehensive profile and lipid profile prior to next visit 5. Continue dual antiplatelet therapy Follow up : 6 MONTHS Adelaida Hargrove MD documented in this [facility] Work Phone: 1(819) 783-622011-06-2023 Instructions* Patient Instructions* Tran Morales LPN - 03/01/2023 2:00 PM EST Please bring all medicines, vitamins, and herbal supplements with you when you come to the office. Prescriptions will not be filled unless you are compliant with your follow up appointments or have a follow up appointment scheduled as per instruction of your physician. Refills should be requested at the time of your visit. [facility] Work Phone: 1(352) 263-724206-27-2023 Evaluation note* Encounter Date Diagnosis Assessment Notes Treatment Notes Treatment Clinical Notes Sep, PAD (peripheral artery disease) (ICD-10 - I73.9) Patient has a history of PAD with previous left above-knee amputation years ago with Dr. Arnold. She is currently reporting occasional discomfort along with edema and discoloration of the right leg. She does have low back pain with lumbar stimulator recently implanted. We discussed the various etiologies of leg pain and edema. I recommend graded compression stockings and leg elevation for the edema. We will go ahead and obtain some noninvasive arterial studies of the right lower extremity as she does have a history of PAD and some dependent rubor in her foot. We will see her after the noninvasive arterial studies and go from there. She knows if she were to deteriorate in any way or develop a wound on her foot she should come back sooner. She verbalizes understanding of all discussion, agrees with plan, denies any questions. [facility] Other 05-30-2023 Evaluation note* Encounter Date Diagnosis Assessment Notes Treatment Notes Treatment Clinical Notes August, Acute bacterial conjunctivitis of both eyes (ICD-10 - H10.33) [place] eye is contagious. Wash hands frequently and try not to rub eyes. Use warm wash cloth to keep them clean or to remove discharge from eyes. Use drops until eyes are clear then 3 more days August, PAD (peripheral artery disease) (ICD-10 - I73.9) Pt agrees to referral to [facility]. 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 She is established w pain management for this problem August, Acute non-recurrent maxillary sinusitis (ICD-10 - J01.00) agrees to antibiotic for sore throat. August, History of left abov e knee amputation (ICD-10 - Z89.612) August, Chronic pain (ICD-10 - G89.29) Reviewed OARRS report. Refilled rx. [facility] Other 05-30-2023 Evaluation note* Encounter Date Diagnosis Assessment Notes Treatment Notes Treatment Clinical Notes August, Chronic pain (ICD-10 - G89.29) [facility] Other 02-06-2023 Evaluation note* Encounter Date Diagnosis Assessment Notes Treatment Notes Treatment Clinical Notes May, Bronchitis (ICD-10 - J40) Offered CXR if no improvement. Will treat with antibiotic and steroid at this time. Has home O2 and enough albuterol for neb machine. May, Chronic obstructive pulmonary disease, unspecified COPD type (ICD-10 - J44.9) chronic problem. Reviewed medications. Will f/u with Pulmonology when able. May, Noninfected skin tear of right lower extremity, initial encounter (ICD-10 - S81.811A) Continue to cover and monitor area. Vaccuum yarn cleaner fell on her leg and it is tender. May, Lumbar degenerative disc disease (ICD-10 - M51.36) chronic pain due to lumbar issues and BKA amputation. will call when pain med refill is needed. [facility] Other 04-14-2022 History of Present illness Narrative* Previously seen by ,last OV 08/07/21. * Mrs. Merritt is a 76-year-old female seen back today for follow-up on her history of coronary disease. She had previous coronary intervention with stent placement to the ostial left main as well as midright coronary arteries that was done in July 2018. She indicates that her symptoms prior to her in tervention was shortness of breath. She does not have pain or pressure. She also has significant COPD secondary to previous cigarette smoking but she did quit smoking. She also has peripheral vascular disease with a left above-knee amputation. Ejection fraction is typically been estimated at [id number]%. She indicates that her breathing has progressively worsened again. She does not believe there is been really any change to her pulmonary status. [facility] DO Work Phone: 1([phone]) 599-996504-14-2022 History of Present illness Narrative* Previously seen by ,last OV 08/07/21. * Mrs. Merritt is a 76-year-old female seen back today for follow-up on her history of coronary disease. She had previous coronary intervention with stent placement to the ostial left main as well as midright coronary arteries that was done in July 2018. She indicates that her symptoms prior to her in tervention was shortness of breath. She does not have pain or pressure. She also has significant COPD secondary to previous cigarette smoking but she did quit smoking. She also has peripheral vascular disease with a left above-knee amputation. Ejection fraction is typically been estimated at [id number]%. She indicates that her breathing has progressively worsened again. She does not believe there is been really any change to her pulmonary status. * Patient is accompanied by her son to the office. Son identifies himself as Alessandro Reid. * Patient reports no chest pressure tightness heaviness or palpitations. She has left above-knee amputation and gets around in a wheelchair, and has not reported any falls since the last visit here. * She has a long history of nicotine addiction. On examination she has evidence of COPD. * She has a right carotid endarterectomy scar, bilateral carotid bruit, breath sounds are very distant heart sounds are regular, there is no peripheral edema in the right lower extremity. Foot is warm to touch. * She gets around in a 3 wheeled scooter when she is in the house. She is very stressed about her daughter being diagnosed with breast cancer, and the side effects of therapy. She quit cigarettes in 2009. She says that the amputation stump in her left leg hurts all the time. * Assessment: * 1. Long history of nicotine addiction, quit in 2009 * 2. Vascular disease in multiple territories, status post left above-knee amputation, was examined in a wheelchair today, gets around in a 3 wheeled scooter at home, reports no falls * 3. Right carotid endarterectomy scar and bilateral carotid bruit, symmetric left upper extremity pulses. Bruits are also heard in the supraclavicular and infraclavicular area bilaterally. * 4. COPD on examination * 5. Hypertension-at target * 6. Lexiscan Myoview July 2021-LVEF 72%, transient ischemic dilatation 0.93, no evidence of attenuation artifact. * 7. Echocardiogram October 2018-LVEF 50 to 55%, left atrial diameter 3.4 cm, impaired relaxation pattern of LV diastolic filling, no pericardial effusion, RV systolic pressure 36 mmHg * 8. Coronary angiography July 2018-patient underwent direct stenting of the ostial left main with drug-eluting stent angioplasty and stenting drug-eluting to the mid RCA. This occurred in the settingof non-ST elevation myocardial infarction. LV ejection fraction at that time was reported to be 25%. There was inferior akinesis. Poor candidate for bypass surgery due to severe respiratory failure and chronic severe COPD. * Recommendations * 1. Continue dual antiplatelet therapy * 2. Carotid ultrasound in the near future * 3. If there are critical abnormalities on carotid ultrasound, patient will be advised to come in for follow-up, son is aware. If there are no critical findings on the carotid ultrasound she can come back in 1 year, with comprehensive profile lipid profile prior to next visit. -[employer] DO Work Phone: [phone]) [phone] History of Present illness Narrative* Previously seen by ,last OV 08/07/21. * Mrs. Merritt is a 76-year-old female seen back today for follow-up on her history of coronary disease. She had previous coronary intervention with stent placement to the ostial left main as well as midright coronary arteries that was done in July 2018. She indicates that her symptoms prior to her in tervention was shortness of breath. She does not have pain or pressure. She also has significant COPD secondary to previous cigarette smoking but she did quit smoking. She also has peripheral vascular disease with a left above-knee amputation. Ejection fraction is typically been estimated at ctzdon01%. She indicates that her breathing has progressively worsened again. She does not believe there is been really any change to her pulmonary status. * Patient is accompanied by her son to the office. Son identifies himself as Alessandro Franklin. * Patient reports no chest pressure tightness heaviness or palpitations. She has left above-knee amputation and gets around in a wheelchair, and has not reported any falls since the last visit here. * She has a long history of nicotine addiction. On examination she has evidence of COPD. * She has a right carotid endarterectomy scar, bilateral carotid bruit, breath sounds are very distant heart sounds are regular, there is no peripheral edema in the right lower extremity. Foot is warm to touch. * She gets around in a 3 wheeled scooter when she is in the house. She is very stressed about her daughter being diagnosed with breast cancer, and the side effects of therapy. She quit cigarettes in 2009. She says that the amputation stump in her left leg hurts all the time. * Assessment: * 1. Long history of nicotine addiction, quit in 2009 * 2. Vascular disease in multiple territories, status post left above-knee amputation, was examined in a wheelchair today, gets around in a 3 wheeled scooter at home, reports no falls * 3. Right carotid endarterectomy scar and bilateral carotid bruit, symmetric left upper extremity pulses. Bruits are also heard in the supraclavicular and infraclavicular area bilaterally. * 4. COPD on examination * 5. Hypertension-at target * 6. Lexiscan Myoview July 2021-LVEF 72%, transient ischemic dilatation 0.93, no evidence of attenuation artifact. * 7. Echocardiogram October 2018-LVEF 50 to 55%, left atrial diameter 3.4 cm, impaired relaxation pattern of LV diastolic filling, no pericardial effusion, RV systolic pressure 36 mmHg * 8. Coronary angiography July 2018-patient underwent direct stenting of the ostial left main with drug-eluting stent angioplasty and stenting drug-eluting to the mid RCA. This occurred in the settingof non-ST elevation myocardial infarction. LV ejection fraction at that time was reported to be 25%. There was inferior akinesis. Poor candidate for bypass surgery due to severe respiratory failure and chronic severe COPD. * Recommendations * 1. Continue dual antiplatelet therapy * 2. Carotid ultrasound in the near future * 3. If there are critical abnormalities on carotid ultrasound, patient will be advised to come in for follow-up, son is aware. If there are no critical findings on the carotid ultrasound she can come back in 1 year, with comprehensive profile lipid profile prior to next visit. [facility] Work Phone: [phone]) 987-835101-28-2022 NoteHNO ID: [id number] Author: Chavez Dillard MD Service: ? Author Type: Physician Type: Progress Notes Filed: 06/10/2021 6:12 PM Note Text: Referring Or Consulting Physician: SELF CHIEF COMPLAINT: pain in my left stump aka left leg HPI: This is a 76 year old female here for evaluation of pain that began about 3 years ago following A left aka due to veins collasping At this point, the pain is located in the areas detailed above (see cc). The patient describes the pain as aching, sharp, soreness, stabbing and tingling and is a 5/10 in severity but can get hirer on the pain scale. It is constant and waxes and wanes The pain is exacerbated by weariing leg and laying on the left side and is mitigated by nothing. In the past, the patient has been treated with injectionss. The patient is currently taking gabapentin for pain with no relief . In the past, the patient has been treated with the following interventional pain procedures: Seen pain management in [facility] Did an injection with no relief Dr Bella no longer sees this provider . Relevant [place] records were reviewed. Adverse Reaction to Medication: khurram Opioid Agreement: No Receiving Disability Income: No Last Date/Time Patient had Opioid Medication: Imaging Studies: unknown Is the patient receiving analgesia/pain relief from the current medications? (+) Has the current medication improved activities of daily living? (+) Have the current medications been associated with any adverse events? (-) Has the patient displayed any aberrant drug-related behaviors? (-) Illicit drug use? (-) Patient denies loss of bowel or bladder control, unintentional weight loss, h/o malignancy, fevers/chills/night sweats. PMH: denies PSH: denies Social History Tobacco Use - Smoking status: no - Smokeless tobacco: No Substance Use Topics - Alcohol use: No - Drug use: No FH: Patient denies a family history of the current chief complaint. Allergy: nkda Meds: denies REVIEW OF SYSTEMS: GENERAL: weight loss (-), malaise(+), fevers (-) HEENT: thrush(-), epistaxis(-) NECK: Negative for neck swelling. RESPIRATORY: Negative for cough, wheezing or shortness of breath (+). CARDIOVASCULAR: chest pain(-), leg swelling(-) or palpitations(-) GI: abdominal discomfort(-), blood in stools/melena/change in bowel habits(-). MUSCULOSKELETAL: joint pain(+), swelling(-), back pain(-) , muscle pain(-). SKIN: (-) for lesions, rash, and itching. PSYCH: sleep disturbance(+), mood disorder(-), recent psychosocial stressors(-). HEMATOLOGY/LYMPHOLOGY: Negative for prolonged bleeding, easy bruising, or swollen nodes (+) NEURO: Headaches(+), syncope(+), paralysis(-), seizures(-), tremors (-) All other reviewed and negative other than HPI. Scribe attestation: Emma Garcia LPN (May 23, 2021 10:13 AM) attest that this documentation has been prepared under the direction and in the presence of Chavez Dillard MD Electronically Signed: Chavez Dillard MD May 23, 2021 10:13 AM Physician attestation: Chavez Garcia MD, personally performed the services described in this documentation. All medical record entries made by the scribe were at my direction and in my presence. Furthermore, I personally performed the physical exam and documented it as such, and agree that the record reflects my personal performance. Electronically Signed: Chavez Dillard MD May 23, 2021 10:13 AM OBJECTIVE: Pulse 89 Resp 16 SpO2 97% PHYSICAL EXAMINATION: GENERAL: Well appearing, in no acute distress PSYCH: Mood and affect is appropriate. Awake, alert, and oriented x 3 SKIN: Skin color, texture, turgor normal, no rashes or lesions HEENT: Normocephalic, atraumatic. PERRLA. RESP: Respirations are unlabored CARD: Regular rate. Cap refill <2s. Extremities pink and well perfused at nailbed GI: Abdomen soft and non-tender MSK: Bilateral upper and lower extremity strength is normal and symmetric. No atrophy or tone abnormalities are noted Cervical: (-)pain to palpation over the cervical paraspinal muscles. Spurling is (-). (-)pain with neck flexion, extension or rotation. Rotation is full on right and left. Axial Loading Test negative, Gandara's sign negative. No obvious deformity or signs of trauma. Normal cervical lordotic curve and full flexion and extension of cervical spine. Lumbar: Straight leg raising in the sitting position is (-) for radicular pain. (+)pain to palpation lumbar paraspinal muscles. Facet loading is (+) bilaterally. (-) pain to palpation over the PSIS, sacroiliac joint provocative maneuvers are (-) for pain reproduction bilaterally. Extremities: Peripheral (more content not included)...[facility] 12-09-2020 NotePROCEDURE: MRI THIGH LT WO CON COMPARISON: None. HISTORY: Neuralgia ; phantom limb pain, chronic throbbing of left stump TECHNIQUE:A variety of imaging planes and parameters were utilized for visualization of suspected pathology. Images were performed without contrast. FINDINGS: BONES: Normal .No significant arthropathy or acute abnormality. SOFT TISSUES: Partial fatty replacement of the muscles of the quadriceps, gluteus, and hamstrings consistent with disuse atrophy. EFFUSION: None visible. OTHER: Negative. IMPRESSION: 1. Amputation of the left leg at the level of the distal femoral metaphysis. 2. No appreciable bone or soft tissue inflammatory changes, abscess, mass, or suspicious findings to account for the patient's symptoms. Electronically authenticated by: JOSIE PARIS Date: 2020-12-09 16:49[facility]08-05-2021 NoteHISTORY AND PHYSICAL EXAMINATION HISTORY: This patient is a 75 year-old female complaining of declining vision out of her right eye. This has been ongoing and progressing rapidly over the last six months. She is bothered by glare from this right eye at nighttime while driving she has difficulty because of headlights creating starburst and halos. She also states having difficulty reading. PAST OCULAR HISTORY / PAST MEDICAL HISTORY / SOCIAL HISTORY / MEDICATIONS / ALLERGIES / REVIEW OF SYSTEMS and PHYSICAL EXAM: Unchanged from previously dictated. ASSESSMENT / PLAN: 1. Visually significant cataract, right eye. After risks, benefits, alternatives, as well as expectations were delivered to the patient, she would like to go forward with cataract removal. She understands those risks to include, but not limited to infection, bleeding, loss of vision or loss of the eye itself. Secondly, she understands that postoperatively she is likely required to require spectacle correction for her best visual acuity. Finally, a complete ophthalmic exam was performed, there is not determined to be any other source of recent decline other than that of the cataract. 2. COVID-19, the patient was briefed in the office and consented for elective cataract surgery in the setting of the pandemic of coronavirus. She understands that she's at a heightened risk going into a hospital setting, however, feels that her activities of daily living are severe enough depleted by her cataracts that she is willing to incur this risk and go forward with her elective procedure. After understanding all risks as well as expectations, she elected to go forward with the procedure as listed above and will be doing so in the near future. [facility] Signed and Approved by: ROXI MCCLENDON 11/28/2020 09:43:00[facility]08-05-2021 NoteOPERATIVE NOTE OPERATION DATE: 11-28-20 ANESTHETIC: Topical. PREOPERATIVE DIAGNOSIS: Nuclear sclerotic cataract of the right eye. POSTOPERATIVE DIAGNOSIS:Same. PROCEDURE NAME:Cataract extraction with intraocular lens placement for the right eye. ESTIMATED BLOOD LOSS: Zero. COMPLICATIONS: None. PROCEDURE: The patient was brought to the Operating Room in the supine position. After proper identification, the right eye was prepped and draped in the sterile ophthalmic fashion. Several drops of tetracaine were placed onto the surface of the eye and a paracentesis created at the 11 o'clock position. Approximately 0.1 mL of 1% Xylocaine was injected into the anterior chamber followed by Amvisc Plus. Using a 2.6 mm Keratome blade a clear corneal incision was created at the 9 o'clock limbus. A cystotome was then utilized to begin a curvilinear capsulorrhexis that was continued for 360 degrees with Utrata forceps. BSS on a 26 gauge cannula was injected beneath the anterior capsule to hydrodissect as well as hydrodelineate the lens. After ensuring mobility, phaco emulsification was performed in a conquer and divide type fashion. After all nuclear material had been removed from the eye, IA was introduced and all residual cortical material was cleaned up. Additional Amvisc Plus was injected into the posterior bag and a lens model MX60, 24.5 diopters was injected and dialed into position. After ensuring centration, IA was reintroduced into the anterior chamber and all residual Amvisc Plus was removed from the eye. BSS on a 30 gauge cannula was injected into the stroma of both the clear corneal incision as well as the paracentesis to hydrate the wounds. Additional BSS was injected into the anterior chamber to pressurize the eye to approximately 20-22 mmHg by finger tension, 0.1 mL of antibiotic was injected into the anterior chamber and Wec cell sponge was used to check the wounds to be water tight. One drop of apraclonidine and 1 drop of prednisolone acetate were placed into the eye and shield was placed over top. The patient was sent to the postoperative area in satisfactory condition to followup the following day for postoperative care. [facility] Signed and Approved by: ROXI MCCLENDON 12/26/2020 11:09:00[facility]07-06-2021 NotePAIN MANAGEMENT Consultation Date: 10-29-20 CHIEF COMPLAINT: Left leg amputation stump pain. HISTORY OF PRESENT ILLNESS: Today in the office I saw Sanchez Merritt. This is a 75 year-old female who is has a left above the knee amputation. 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 These are significantly painful to her. The patient has had her prosthesis adjusted multiple times without any relief. She rates the pain as a 5/10, a throbbing, stabbing sensation and sharp sensation. We had injected the neuroma in the past and the patient states that it did not help, subsequent to the medication wearing off the pain seemed harder than before. ADL: Standing and walking aggravates the pain. The patient dreads having to wear the prosthesis, especially the stump connection point. MEDICATIONS: The patient currently takes gabapentin 300 mg b.i.d. PAST MEDICAL HISTORY / PAST SURGICAL HISTORY and REVIEW OF SYSTEMS are noted on the chart along with the MEDICATIONS, ALLERGIES, and radiological images. PHYSICAL EXAM: VITALS:Stable at 96/57 with a heart rate of 95. At a height of 5'3 the patient weighs 55 kg. EXTREMITIES:With regards to the neuroma, the patient still has palpable components which are aggravating to her. At this point, given that the patient did not respond to the scar tissue infiltration did not respond to the scar tissue infiltration. We will look to apply a topical ointment to this region and also request a further modification of the prosthesis, especially along the femoral shaft. The patient and her daughter understand. If this is not successful, then the next step would be to have the neuroma buried along the periosteum of the femur. cc:Dr. John Lentz. IF Signed and Approved by: DR DORA BELLA 11/05/2020 12:13:00[facility]07-01-2021 NoteHISTORY AND PHYSICAL EXAMINATION HISTORY: The patient is a 75 year-old white female with complaints of declining vision out of her left eye. She believes that this has gradually occurred over the last six months affecting both distance as well as near vision. She states at times she sees black dots in her vision. Additionally, she states having difficulty driving at nighttime and navigating this because of glare and halos off of headlights. Finally, she states having difficulty reading. PAST OCULAR HISTORY: Denies. PAST MEDICAL HISTORY: Hypercholesterolemia, shoulder surgery, coronary artery disease, chronic obstructive pulmonary disease, she undergoes pain management. She's had coronary stents as well as stents in her groin. She's had numerous leg surgeries and a hysterectomy. SOCIAL HISTORY: Denies tobacco, alcohol or recreational drug abuse. SYSTEMIC MEDICATIONS: Oxycodone, ondansetron, gabapentin, lisinopril, duloxetine, spironolactone, pantoprazole, docusate sodium, clopidogrel, carvedilol, Symbicort, baclofen, and atorvastatin. ALLERGIES: VANCOMYCIN. REVIEW OF SYSTEMS: No pertinent positives. PHYSICAL EXAM: VITALS:Blood pressure is measured at 102/61 with a respiration rate of 12 and a pulse of 85. GENERAL: The patient is awake, alert and oriented x3, well-developed, well-nourished, in no acute distress. HEART:Regular rate and rhythm. LUNGS:Clear bilaterally. ABDOMEN:Soft, nontender, nondistended. EXTREMITIES: No pitting edema. OPHTHALMIC EXAM: Revealed a visual acuity of 20/40 -2 that glared to 20/100 and 20/400 left eye. Pupils motility, muscle balance and confrontational visual walters within normal limits bilaterally. Pressures are measured at 16 bilaterally. Slit lamp exam revealed blepharitis with a severe decrease in tear film bilaterally. Conjunctiva, cornea, anterior chamber and iris were within normal limits bilaterally. Lens status demonstrated a 3+ nuclear sclerosis with 3+ cortical changes in the macula of the right eye and 3+ nuclear sclerosis 3+ cortical changes in the vacuole's with a 3+ PSC in the left eye. FUNDUS EXAM: Revealed good view in the right, poor view in the left. Optic discs, macula, vessels, periphery and vitreous were within normal limits bilaterally. ASSESSMENT / PLAN: 1. Visually significant cataract, right eye. After risks, benefits, alternatives, as well as expectations were delivered to the patient, she would like to go forward with cataract removal. She understands those risks to include, but not limited to infection, bleeding, loss of vision or loss of the eye itself. Secondly, she understands that postoperatively she is likely required to require spectacle correction for her best visual acuity. Finally, a complete ophthalmic exam was performed, there is not determined to be any other source of vision decline other than that of the cataract. 2. COVID-19, the patient was briefed in the office and consented for elective cataract surgery in the setting of the pandemic of coronavirus. She understands that she's at a heightened risk going into a hospital setting, however, feels that her activities of daily living are severe enough depleted by her cataracts that she is willing to incur this risk and go forward with her elective procedure. [facility] Signed and Approved by: ROXI MCCLENDON 10/24/2020 11:46:00[facility]07-01-2021 NoteOPERATIVE NOTE OPERATION DATE: 10-24-20 ANESTHETIC: Topical. PREOPERATIVE DIAGNOSIS: Nuclear sclerotic cataract of the left eye. POSTOPERATIVE DIAGNOSIS:Same. PROCEDURE NAME:Cataract extraction with intraocular lens placement for the left eye. ESTIMATED BLOOD LOSS: Zero. COMPLICATIONS: None. PROCEDURE: The patient was brought to the Operating Room in the supine position. After proper identification, the right eye was prepped and draped in the sterile ophthalmic fashion. A paracentesis created at the 5 o'clock position. Approximately 0.1 mL of 1% Xylocaine was injected into the anterior chamber followed by Amvisc Plus. Using a 2.6 mm Keratome blade a clear corneal incision was created at the 3 o'clock limbus. A cystotome was then utilized to begin a curvilinear capsulorrhexis that was continued for 360 degrees with Utrata forceps. BSS on a 26 gauge cannula was injected beneath the anterior capsule to hydrodissect as well as hydrodelineate the lens. After ensuring mobility, phaco emulsification was performed in a conquer and divide type fashion. After all nuclear material had been removed from the eye, IA was introduced and all residual cortical material was cleaned up. Additional Amvisc Plus was injected into the posterior bag and a lens model MX60, 25.5 diopters was injected and dialed into position. After ensuring centration, IA was reintroduced into the anterior chamber and all residual Amvisc Plus was removed from the eye. BSS on a 30 gauge cannula was injected into the stroma of both the clear corneal incision as well as the paracentesis to hydrate the wounds. Additional BSS was injected into the anterior chamber to pressurize the eye to approximately 20-22 mmHg by finger tension, 0.1 mL of antibiotic was injected into the anterior chamber and Wec cell sponge was used to check the wounds to be water tight. One drop of apraclonidine and 1 drop of prednisolone acetate were placed into the eye and shield was placed over top. The patient was sent to the postoperative area in satisfactory condition to followup the following day for postoperative care. [facility] Signed and Approved by: ROXI MCCLENDON 11/27/2020 16:58:00[facility]06-22-2021 NotePAIN MANAGEMENT Consultation Date: 10-15-20 CHIEF COMPLAINT: Left [id number] amputation stump pain. HISTORY OF PRESENT ILLNESS: Today in the office I saw Sanchez Merritt. This is a very pleasant 75 year-old female who is returning after she had a lumbar epidural which afforded the patient 80-90% relief. Pain is now focused on her left stump pain. She states the pain can get to an 8/10, a throbbing sensation. With regards to her low back, the patient reports a 2/10. ADL: Walking, ambulating, and putting the prosthesis on aggravates the pain. MEDICATIONS: The patient currently takes oxycodone 10 mg takes 1 tablet daily, gabapentin 600 mg t.i.d. is being weaned down to see whether she would tolerate Lyrica better. Tylenol extra strength and is on Plavix. PAST MEDICAL HISTORY / PAST SURGICAL HISTORY and REVIEW OF SYSTEMS are noted on the chart along with the MEDICATIONS, ALLERGIES, and radiological images. PHYSICAL EXAM: GENERAL:This is a pleasant, cooperative female who does not appear to be in any acute distress. VITALS:Stable at 133/66 with a heart rate of 84. At a height of 5'3 the patient weighs 60 kg. EXTREMITIES:Focused evaluation along the stump on the left hand side along the sciatic nerve and along the femoral nerve, neuroma palpation is noted. BACK:With regards to the low back, the patient continues to have lumbar paravertebral spasming, however, not to the same degree. The remainder of the examination is within normal limits. CURRENT WORKING DIAGNOSIS: 1. Low back pain. 2. Lumbar spondylosis. 3. Status post left [id number]-hkfv amputation 2018. 4. Stump pain. 5. Neuromatous pain. PLAN: 1. We will inject the neuroma in the office today to see whether this may improve the patient's pain symptomatology. With regards to this, the patient will followup in two weeks for further evaluation. 2. With regards to her low back, we will evaluate this further on a later date. The patient and her daughter understand and would like to proceed. [facility] Signed and Approved by: DR DORA BELLA 10/29/2020 10:44:00[facility]06-22-2021 NotePAIN MANAGEMENT PROCEDURE NOTE Date: 10-15-20 PRE AND POST PROCEDURE DIAGNOSIS: Neuromatous stump pain, neuromatous pain status post left dioge-qmc-jytg amputation. PROCEDURE NAME:Neuroma stump injection. PROCEDURE: Subsequent to obtaining informed consent, the patient is placed in the right lateral decubitus position. Alcohol prep is used to sterilize the site. A 25 gauge needle is advanced until it comes to the proximity of the right sciatic neuroma. Marcaine 2.5% along with Kenalog 20 mg are placed, similarly along the femoral nerve. The patient post procedurally in ambulating with the prosthesis reports having significant relief of her pain and no overt increase in her pain symptomatology that would have been present. [facility] Signed and Approved by: DR DORA BELLA 10/29/2020 10:44:00[facility]04-26-2021 NotePAIN MANAGEMENT Consultation Date: 08-19-20 HISTORY OF PRESENT ILLNESS: This is a very pleasant 75 year-old female patient who comes to the pain clinic with her granddaughter today in the office. The patient is a poor historian in regards to her pains to the low back and left stump. She rates the low back more bothersome to her, with the left side greater than the right and rates the pain an 8/10 which is a constant ache sensation. Activities that increase the low back pains are standing, walking, evening time, wearing her leg prosthesis, activities of daily living, and increased activities. Activities that decrease the pains are sitting, lying down, transitioning, interventional therapy, Tylenol, oxycodone, gabapentin, and baclofen. Of note, the patient is on group home anticoagulant medication, Plavix. On July 30 the patient had a #1 bilateral medial branch block at the levels of L2, L3, and L4, L5 which afforded 0% relief of her right side of the low back and initially 100% relief on the left side, then when she went home to put on her prosthesis, the low back pain increased and noticed 50% several hours of relief to her low back. Again, the patient is a poor historian and had anesthesia after the injection. The patient was to keep a diary of her pain after the injection. She denied any complications after the #1 medial branch block as well as any loss of bowel or bladder, injuries, or falls. MEDICATIONS: Tylenol extra strength b.i.d. p.r.n., oxycodone 10 mg daily, gabapentin 700 mg t.i.d., baclofen 10 mg at h.s. p.r.n., Plavix 75 mg daily, Colace daily, Cymbalta 30 mg daily, gabapentin 600 mg b.i.d., lisinopril 2.5 mg daily, multivitamin daily, paroxetine 40 mg daily, Zofran 4 mg p.r.n., atorvastatin 20 mg daily, carvedilol 3.125 mg b.i.d., hydroxyzine 25 mg t.i.d., and pantoprazole 40 mg daily. PHYSICAL EXAM: VITALS:BP 122/67, heart rate of 75, respirations 18, temperature 98.2. The patient is 5'3 , 55.1 kg. HEENT:Head is atraumatic, normocephalic. Facial symmetry is maintained. NECK:Supple without any lesions. Trachea is midline. HEART:Regular rate with no JVD noted. LUNGS:Normal expansion, with unlabored breathing, no audible wheezing noted. ABDOMEN:Soft, nondistended. BACK:Range of motion is guarded for flexion, extension, and rotation to the left and right. Tenderness is noted along the extension, compression, and direct palpation along the left and right lumbar facets. There is positive axial loading to the left and right lumbar facets. Point tenderness is noted to the left and right and extends into the right buttock. There are paresthesias to the right lower extremity as well as into the left stump. There are no paravertebral spasms noted. EXTREMITIES:No pedal or ankle edema is noted. The patient does not have the left prosthesis on in the office today. MUSCULOSKELETAL:Intact with no motor weaknesses to the bilateral upper and right lower extremity. The patient is currently in the wheelchair today without her prosthesis. NEUROLOGICAL:The patient is neurologically intact to the right lower extremity. Patellar reflex 2/2 and Achilles reflex 2/2 are present to the right lower extremities. Left stump reflexes are present and intact. The patient is forgetful, however, is alert and oriented. PSYCHIATRIC:The patient is cooperative, alert and oriented x3, and appropriate for mood with a flat affect. DIAGNOSES: 1. Low back pain. 2. Lumbar neuritis. 3. Lumbar spondylosis. 4. Chronic pain syndrome. PLAN: 1. We will schedule the patient for a lumbar epidural steroid injection at the level of L5, S1. 2. We will need to obtain a Plavix hold prior to the injection. 3. The patient may have anesthesia for the lumbar epidural steroid injection. 4. The patient will return to the pain clinic after the injection to reevaluate her pain. Dictated by Hemant Red APRN [facility] Signed and Approved by: HEMANT RED 08/26/2020 16:35:00[facility]03-08-2021 NoteCONSULTATION Consultation Date: 07/01/2020 PAIN MANAGEMENT CONSULTATION HISTORY OF PRESENT ILLNESS: This is a very pleasant 75-year-old female patient who comes to the [facility] for the very first time. Chief complaint today is low back pain with the right side greater than the left. The patient is unsure when she began to note the pain generator to the low back. The patient rates the low back pain an 8/10 which is a constant twisting sensation. Activities that increase the pain are standing, morning time, housework, bending, putting on her left prosthesis, ADLs and increased activity. Activities that decrease the pain minimally are sitting, lying down, Tylenol, gabapentin, oxycodone and Cymbalta. The patient was last seen in 2018 for chronic leg pain due to peripheral vascular disease. Since her last office visit, she had a left leg amputation due to the peripheral vascular disease in 2019. The patient had stents July of 2018 at [facility]. Originally the patient was placed on Plavix [address] Arnold; however, Dr. Pitt in [place] took over the Plavix medication. The patient denies any loss of bowel or bladder, injuries or falls in regards to the chronic low back pain. MEDICATIONS: Symbicort two puffs b.i.d., albuterol inhaler p.r.n., lisinopril one tablet daily, atorvastatin one p.o. daily, gabapentin 600 mg b.i.d. to t.i.d., multivitamins daily, hydroxyzine one tablet t.i.d., oxycodone 5 mg one tablet every 6 hours p.r.n., Colace 100 mg daily, carvedilol b.i.d., Plavix 75 mg daily, Pantoprazole one p.o. daily, (no mg of the medication are brought today in the office). PHYSICAL EXAMINATION: VITAL SIGNS: Blood pressure 99/63, heart rate 85, respirations 18, temperature 97.9. Patient is 63 inches and 55.6 kg. HEENT: Head is atraumatic, normocephalic, facial symmetry is maintained. NECK: Supple without any lesions. Trachea is midline. HEART: Regular rate with no JVD noted. LUNGS: Normal expansion, with unlabored breathing, no audible wheezing noted. ABDOMEN: Soft and nondistended. BACK: Range of motion is guarded for flexion, extension and rotation. Tenderness is noted along extension, compression and direct palpation along the lumbar facets. There is positive axial loading to the left on right lumbar facet. Point tenderness is noted to the left and right lumbar and does not radiate. There are no paresthesias. There are, of note, to the left and right lumbar paravertebral musculature, muscle spasticity with positive twitch response. These areas are tender to palpation to the left and right of the lumbar. EXTREMITIES: No pedal or ankle edema is noted to the right lower extremity. There is of note a left below the knee amputation. There is no prosthesis to the left stump. MUSCULOSKELETAL: Intact with no motor weakness to bilateral upper and right lower extremity NEUROLOGICAL: The patient is neurologically intact to the right lower extremity. Patella reflexes are 2/2 and Achilles 2/2 present to the right lower extremity. The patient is able to move the left stump when asked. Cranial nerves are intact. PSYCHIATRIC: The patient is cooperative, alert and oriented x3, and appropriate for mood with a flat affect. DIAGNOSIS: 1. Low back pain. 2. Lumbar spondylosis. 3. Chronic pain syndrome. 4. Long-term anticoagulant use. PLAN: 1. We will proceed with bilateral lumbar trigger point injections today in the office. 2. We will also add Baclofen 10 mg once p.o. at h.s. for myofascial pain. 3. The patient will obtain a lumbar x-ray as we currently do not have imaging today to review. 4. We will need to obtain a Plavix hold by Dr. Hi before injections. 5. I will review the patient's x-ray to the lumbar and order injections accordingly. 6. We discussed a #1 medial branch block leading up to radiofrequency ablation today in the office as well as proceeding with a #1 medial branch block to bilateral L2, L3 and L4, L5 if the lumbar x-ray is without any deformities. [facility] Signed and Approved by: HEMANT RED 07/08/2020 17:02:00[facility]03-08-2021 NoteCONSULTATION Procedure Date: 07/01/2020 PROCEDURE NOTE: PREOPERATVE DIAGNOSIS: Left and right lumbar paravertebral spasms. POSTOPERATIVE DIAGOSIS: Same PROCEDURE: Trigger point injection to the left and right lumbar paravertebral musculature. PROCEDURE NOTE Subsequent to obtaining informed consent, the patient was placed in a forward leaning position over the exam table. With gloves and an alcohol prep was used to sterilize both sites on the left and right. A 25-gauge needle was advanced until it came to rest along the trigger zones. At this point, Marcaine 0.125% along with Kenalog 10 mg per site was injection in the fan-like pattern to the left and right lumbar paravertebral musculature. The patient tolerated the procedure well and had no complications. The patient will be followed up in the office after the injection to re-evaluate her pain. Vital signs were obtained and were stable. . [facility] Signed and Approved by: HEMANT RED 07/08/2020 17:03:00[facility]04-01-2019 History of Present illness Narrative* Mrs. Merritt is a 76-year-old female seen back today for follow-up on her history of coronary disease. She had previous coronary intervention with stent placement to the ostial left main as well as midright coronary arteries that was done in July 2018. She indicates that her symptoms prior to her in tervention was shortness of breath. She does not have pain or pressure. She also has significant COPD secondary to previous cigarette smoking but she did quit smoking. She also has peripheral vascular disease with a left above-knee amputation. Ejection fraction is typically been estimated at %. She indicates that her breathing has progressively worsened again. She does not believe there is been really any change to her pulmonary status. * Physical exam: * Neck: There are soft bilateral carotid bruits * Lungs: Clear * Heart: Regular rate and rhythm with a grade 2/6 systolic murmur at the left sternal border * Extremities no significant edema on the right side left his amputation. * Recommendation is for her to undergo a Lexiscan stress test given her worsened shortness of breath with activity. This seems to have been her previous anginal equivalent type symptom. She will be seen back after stress testing is completed. No change made to medications. -[facility] KienVe DO Work Phone: Evaluation noteNo InformationNort [employer] Other Evaluation note* Diagnosis Arteriosclerosis of coronary artery- Primary Bilateral carotid bruits Hyperlipidemia, unspecified hyperlipidemia type Ischemic cardiomyopathy Other specified forms of chronic ischemic heart disease Primary hypertension Unspecified essential hypertension Stented coronary artery Postsurgical percutaneous transluminal coronary angioplasty status Chronic obstructive pulmonary disease, unspecified COPD type (CMS/HCC) Wheelchair dependent Wheelchair dependence Amputation of leg (CMS/HCC) Traumatic amputation of leg(s) (complete) (partial), unilateral, level not specified, without mention of complication History of right-sided carotid endarterectomy documented in this encounter [facility] Work Phone: History general Narrative - Reported* Type Description Date Medical History High Cholesterol Medical History Depression Medical History COPD Medical History Congestive Heart Failure Surgical History Breast Augmentation 1983 Surgical History Hyster 1985 Surgical History Shoulder- Cuff Surgery-right Surgical History hemorrhoidectomy 1974 Surgical History Left Leg Stents 11/2009 Surgical History Left common iliac artery angiog mariana 10/02/2015 Surgical History Left common femoral artery endarterectomy and patch graft/left external iliac artery endoluminal stent graft placement with angioplasty/distal left fem-pop bypass graft and popliteal artery balloon thrombectomy 10/02/2015 Surgical History Lt vein/ artery thro mbectomy, graft, angioplasty, and stenting 10/23/15 Surgical History Thrombectomy of Lt a tk fem-pop bypass, Lt fem btk graft, Rt iliac angio and stent 11/12/2016 Surgical History Rt Carotid endart 05/14/17 Surgical History Lt fem DSA from Lt brachial 07/28 Surgical History Lt pop endart & patc h graft; Revision Lt ATK fem-pop bypass graft 07/29/17 Surgical History Multiple vascular procedures to Left extremities 06-20-2018 Surgical History Lt ATK amp 06-21-2018 Surgical History cardiac stents 08/12/18 Hospitalization History Hyster Hospitalization History Suicide Hospitalization History See above [employer] Other History general Narrative - Reported* Type Description Date Medical History High Cholesterol Medical History Depression Medical History COPD Medical History Congestive Heart Failure Surgical History Breast Augmentation 1983 Surgical History Hyster 1985 Surgical History Shoulder- Cuff Surgery-right Surgical History hemorrhoidectomy 1974 Surgical History Left Leg Stents 11/2009 Surgical History Left common iliac artery angiog mariana 10/02/2015 Surgical History Left common femoral artery endarterectomy and patch graft/left external iliac artery endoluminal stent graft placement with angioplasty/distal left fem-pop bypass graft and popliteal artery balloon thrombectomy 10/02/2015 Surgical History Lt vein/ artery thro mbectomy, graft, angioplasty, and stenting 10/23/15 Surgical History Thrombectomy of Lt a tk fem-pop bypass, Lt fem btk graft, Rt iliac angio and stent 11/12/2016 Surgical History Rt Carotid endart 05/14/17 Surgical History Lt fem DSA from Lt brachial 07/28 Surgical History Lt pop endart & patc h graft; Revision Lt ATK fem-pop bypass graft 07/29/17 Surgical History Multiple vascular procedures to Left extremities 06-20-2018 Surgical History Lt ATK amp 06-21-2018 Surgical History cardiac stents 08/12/18 Surgical History PAIN PUMP INTALLED IN BACK AREA 09/2022 Hospitalization History Hyster Hospitalization History Suicide Hospitalization History See above [employer] Other Reason for referral (narrative)* Consultation (Routine) - Authorized Specialty Diagnoses / Procedures Referred By Sherry chicas Referred To Contact Cardiology Diagnoses Arteriosclerosis of coronary artery Procedures Follow Up In Cardiology Adelaida Hargrove MD [address] [facility] [address] [place] [address] Adelaida Hargrove MD [address] [place] [address] [address] [place] [address] Referral ID Status Reason Start Date Expiration Date V isits Requested Visits Authorized [id number] Authorized 03/01/2023 02/29/20[address] [facility] Work Phone: Summary Purpose Family History Unknown Family Member Name Dates Details Family history of cardiac di sorder: Mother, Father(V17.49, Z82.49) Status:Active Family history of cardiac pa cemaker: Sister(V17.49, Z82.49) Status:Active Unknown Family Member Name Dates Details Family history of cardiac di sorder: Mother, Father(V17.49, Z82.49) Status:Active Family history of cardiac pa cemaker: Sister(V17.49, Z82.49) Status:Active Unknown Family Member Name Dates Details Family history of cardiac di sorder: Mother, Father(V17.49, Z82.49) Status:Active Family history of cardiac pa cemaker: Sister(V17.49, Z82.49) Status:Active Unknown Family Member Name Dates Details Family history of cardiac di sorder: Mother, Father(V17.49, Z82.49) Status:Active Family history of cardiac pa cemaker: Sister(V17.49, Z82.49) Status:Active Unknown Family Member Name Dates Details Family history of cardiac di sorder: Mother, Father(V17.49, Z82.49) Status:Active Family history of cardiac pa cemaker: Sister(V17.49, Z82.49) Status:Active Unknown Family Member Name Dates Details Family history of cardiac di sorder: Mother, Father(V17.49, Z82.49) Status:Active Family history of cardiac pa cemaker: Sister(V17.49, Z82.49) Status:Active Unknown Family Member Name Dates Details Family history of cardiac di sorder: Mother, Father(V17.49, Z82.49) Status:Active Family history of cardiac pa cemaker: Sister(V17.49, Z82.49) Status:Active Unknown Family Member Name Dates Details Family history of cardiac di sorder: Mother, Father(V17.49, Z82.49) Status:Active Family history of cardiac pa cemaker: Sister(V17.49, Z82.49) Status:Active Unknown Family Member Name Dates Details Family history of cardiac di sorder: Mother, Father(V17.49, Z82.49) Status:Active Family history of cardiac pa cemaker: Sister(V17.49, Z82.49) Status:Active Unknown Family Member Name Dates Details Family history of cardiac di sorder: Mother, Father(V17.49, Z82.49) Status:Active Family history of cardiac pa cemaker: Sister(V17.49, Z82.49) Status:Active Unknown Family Member Name Dates Details Family history of cardiac di sorder: Mother, Father(V17.49, Z82.49) Status:Active Family history of cardiac pa cemaker: Sister(V17.49, Z82.49) Status:Active Unknown Family Member Name Dates Details Family history of cardiac di sorder: Mother, Father(V17.49, Z82.49) Status:Active Family history of cardiac pa cemaker: Sister(V17.49, Z82.49) Status:Active Unknown Family Member Name Dates Details Family history of cardiac di sorder: Mother, Father(V17.49, Z82.49) Status:Active Family history of cardiac pa cemaker: Sister(V17.49, Z82.49) Status:Active Advance Directives No Advanced Directives Records FoundNo Advanced Directives Records FoundNo Advanced Directives Records FoundNo Advanced Directives Records FoundNo Advanced Directives Records FoundNo Advanced Directives Records FoundNo Advanced Directives Records FoundNo Advanced Directives Records Found Chief Complaint SANCHEZ MERRITT is being seen for a 6 month follow-up of.SANCHEZ MERRITT is being seen for a 6 month follow-up of.SANCHEZ MERRITT is being seen for a 6 month follow-up of.SANCHEZ MERRITT is being seen for a 6 month follow-up of. Reason for Referral Reason *Waiting for appt Former pt of Dr. Mejia - now has swelling and discoloration in R lower leg. Hx of L AKA Diagnosis 1 PAD (peripheral yuli ry disease) (I73.9) Referral Organization [facility] Referring Provider First Name John Referring Provider Last Name Abhijeet Referring Provider Specialty Family [facility] Referred Organization [facility] Referred Provider Jaspreet Ventura Referred Address [address] [place] [phone] Referred Provider Specialty Vascular April christianne Referral Priority Routine General Notes Dai Aaron 01:06:20 PM >received today, faxed P2P Additional Source Comments INFORMATION SOURCE (unrecogn ized section and content) DATE CREATED AUTHOR 01/02/2021 [facility] DATE CREATED AUTHOR AUTHOR'S ORGANIZ ATION 07/18/2021 [facility] DATE CREATED AUTHOR AUTHOR'S ORGANIZ ATION 02/27/2022 [facility] DATE CREATED AUTHOR AUTHOR'S ORGANIZ ATION 02/27/2022 [employer] DATE CREATED AUTHOR AUTHOR'S ORGANIZ ATION 04/17/2022 [facility] DATE CREATED AUTHOR AUTHOR'S ORGANIZ ATION 12/18/2022 [facility] DATE CREATED AUTHOR AUTHOR'S ORGANIZ ATION 03/02/2023 [facility] DATE CREATED AUTHOR AUTHOR'S ORGANIZ ATION 04/13/2023 [facility] REASON FOR VISIT (unrecogniz ed section and content) OV or UA? Reason Comments Follow-up 1 year Care Teams (unrecognized sec tion and content) Cloud Systems Administrator Relationship Specialty Start Date End Date John Lentz MD [address] [place] [address] PCP - General 11/03/18 FOR RECORDS PERTAINING TO PATIENTS WHO ARE OR HAVE BEEN ENROLLED IN A CHEMICAL DEPENDENCY/SUBSTANCEABUSE PROGRAM, SOME INFORMATION MAY BE OMITTED. This clinical summary was aggregated from multiple sources. Caution should be exercised in using it in the provision of clinical care. This summary normalizes information from multiple sources, and as a consequence, information in this document may materially change the coding, format and clinical context of patient data. In addition, data may be omitted in some cases. CLINICAL DECISIONS SHOULD BE BASED ON THE PRIMARY CLINICAL RECORDS. [employer] provides no warranty or guarantee of the accuracy or completeness of information in this document.
== END 2023-04-16 10:28 | disposition home or self-care (01) ==
LOC: LAB 10:27
PROVIDERS: PCP Family Medicine; Visit Provider Family Medicine
DX: R41.0 Disorientation, unspecified (principal)
CPT/HCPCS: 81003; 87086

== ENCOUNTER 2023-04-22 10:52 | Inpatient (IN) | payer MEDICARE, SELFPAY ==
[2023-04-22] VITALS (18 sets, daily range): BP systolic 104–113; BP diastolic 60–74; PULSE 91–138; RESP 15–24; TEMP 36.3–36.9; O2SAT 82–98; BMI 23.0; BMI 24.1
--- OUTSIDE RECORDS SUMMARY | 2023-04-22 11:07 | XMS_ITS | CCD ---
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 John Melgoza [facility] Unav ailable Jimmy, Dr. Tracey De La Cruz Attending Unavail able Lyster, Dr. Tracey De La Cruz Referring Unavail able Lyster, Dr. Tracey De La Cruz Attending Unavail able Lyster, Dr. Tracey De La Cruz Referring Unavail able Lentz, Dr. John Melgoza [facility] Unav ailable Delvin, Dr. Son Attending Unavailable Abhijeet, Dr. John Melgoza [facility] Palomav ailJohn Vick Unavailable Margy Olivas Unavailable Margy Olivas Attending Unavailable Margy Olivas Admitting Unavailable John Lentz Primary Care Unavailable John Lentz MD Primary Care Provider ADELAIDA HARGROVE Attending Unavailable JOHN LENTZ Primary Care Unavaila OMKAR Jorgensen Attending Unavailable Allergies Allergy Classification Reported Allergen(s) Allergy Type Date of Onset Reaction(s) Facility (8 sources) Bacitracin; Translations: [BACITRACIN] Drug Allergy 07-19-19 21 Unknown [facility] Repository (2 sources) Neomycin; Translations: [NEOMYCIN] Drug Allergy 07-19-19 21 [facility] Repository (3 sources) Vancomycin; Translations: [VANCOMYCIN] Drug Allergy 01-17-20 15 [facility] Repository (1 source) Polymyxin B Drug allergy (disorder) 07-19-19 21 [facility] Repository (20 sources) Vancomycin; Translations: [vancomycin] Drug Allergy 07-21-19 14 [facility] (15 sources) Aminoglycosides (Antibiotic) Propensity to adverse reactions Unknown [facility] Other (9 sources) Bacitracin Drug Allergy Unknown [facility] Other (15 sources) Neomycin Drug Allergy Unknown [facility] Other (15 sources) Polymyxin B Drug Allergy Unknown [facility] Other (8 sources) Contrast media Propensity to adverse reactions 07-21-19 14 Unknown [facility] Other (8 sources) Erythromycin Drug Allergy Unknown [facility] Other (8 sources) fluticasone / salmeterol Drug Allergy 09-11-19 16 Unknown [facility] Other (7 sources) influenza A virus (H1N1) antigen / influenza A virus (H3N2) antigen / influenza B virus antigen Drug Allergy Comment:Flu Injection [facility] Other (8 sources) traMADol Drug Allergy 10-17-19 15 Unknown [facility] Other (8 sources) Advair Diskus *ANTIASTHMATIC AND BRONCHODILATOR AG Propensity to adverse reactions Unknown [facility] Other (7 sources) patient allergy list reviewed by nurse or physicia Propensity to adverse reactions 09-22-19 18 Comment:Done [facility] Other (8 sources) Dyes Propensity to adverse reactions Comment:CT DYE [facility] Other (7 sources) Allergies Reconciled Propensity to adverse reactions Unknown [facility] Other (8 sources) TraMADol & Dietary Manage Prod *ANALGESICS - OPIOI Propensity to adverse reactions Unknown [facility] Other (8 sources) Vaccine product containing Influenza virus antigen (medicinal product) Drug allergy 03-03-20 17 Unknown [facility] Other (8 sources) Contraindication to Flu Injection Propensity to adverse reactions 08-18-19 18 Comment:advers e rxn/side effects [facility] Other (1 source) Aminoglycosides (Antibiotic) Drug allergy (disorder) 10-25-19 [facility] Repository (1 source) Vancomycin Drug Allergy 10-25-19 [facility] Repository (1 source) Flucelvax Quadrivalent Drug allergy Comment:Flu Injection [facility] Other (1 source) POLYMYXIN B SULFATE-HC; Translations: [POLYMYXIN B SULFATE-HC] Propensity to adverse reactions to drug (disorder) 08-29-19 [facility] Repository Medications Current Medications Medication Drug Class(es) Dates Sig (Normalized) Sig (Original) [id number] 200 actuat albuterol 0.09 mg/actuat metered dose [...] Active Start: 05-26-2021 take 1 capsule by [facility] twice daily DULoxetine HCl - 30 MG Oral Capsule Delayed Release Particles TAKE 1 CAPSULE TWICE DAILY. Quantity: 0 Refills: 0 Ordered: 26-May-2021 DO Start : 26-May-2021 Active take 1 capsule by [facility] every twenty-four hours Cymbalta 60 MG [...] Start: 06-01-2022 take 2 tablets by mo [facility] every twenty-four hours predniSONE 20 MG [...] disease (20 sources) Atherosclerotic heart disease of [place] coronary artery without angina pectoris; Translations: [Coronary arteriosclerosis] Onset: 08-25-2018 03-01-2023 Chronic Coronary atherosclerosis and other heart disease (10 sources) Stented coronary artery; Translations: [Percutaneous transluminal coronary angioplasty status] Onset: 02-26-2023 03-01-2023 Episodic Coronary atherosclerosis and other heart disease (1 source) Coronary atherosclerosis and other heart disease; Translations: [Atherosclerosis of [place] arteries of extremities with intermittent claudication, right [...] 07-20-2013 Chronic Other aftercare (1 source) 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; Translations: [OTH INTERMEDIATE CURRENT DRUG THERAPY] Onset: 11-06-2020 Episodic Other aftercare (7 sources) Long-term current use of inhaled steroid; Translations: [FDC (current) use of inhaled steroids] Episodic Other aftercare (7 sources) Long-term current use of anticoagulant; Translations: [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] Episodic Other bone [...] Onset: 12-17-2016 Episodic Other aftercare (1 source) FDC (current) use of anticoagulants; Translations: [INTERMEDIATE CURRNT USE ANTICOAGULANTS] Onset: 07-05-2020 Episodic Other [...] Range Facility Office Visiton 04-12-2023 Follow-up visit [id number] Sanchez Merritt 1945 F Date Provider Department Center 04/12/2023 [facility]ath[facility]OMKAR [facility] No family history on file Level of Service:65033 [place] OFFICE/OUTPATIENT ESTABLISHED MOD MDM 30 MIN Normal [facility] US UNI ankle/arm indiceson 0 12-17-2022 US UNI ankle/arm indices [facility] Main [address] [address] Ultrasound Report Signed Patient: Sanchez Merritt MR#: [id number] : 1945 Acct:[id number] Age/Sex: 77 / F ADM Date: 11/17/22 Loc: [facility] Room: Type: [facility] Attending Dr: Margy Olivas TRACTOR EXPERT-C Ordering Provider: Margy Olivas APRN Date of [...] Lauro Heard MD12/17/2022 2:11 PM Dictation Location: [id number] Tech: Julia Bautista Transcribed By: BILLIE 12/17/22 1411 Dictated By: Lauro Heard MD 12/17/22 1410 Signed By: 12/17/[address] [facility] LAB Carotid Artery Dupl ex Ultrasounon 04-13-2022 [facility] LAB Carotid Artery Duplex Ultrasoun [address], [address] [place] [address] Vascular Lab Report Carotid Artery Duplex Ultrasound Patient Name: SANCHEZ Melara Physician: [id number] Ludwig South MD, [facility] Study Date: 04/13/2022 Referring ADELAIDA HARGROVE Physician: MRN/PID: [id number] PCP: John Lentz Accession/Order#: [id number] CC Report to: Cooper Catalina Date of : 1945 Technologist: Jillian Gonzalez [facility], [facility] Gender: F Technologist 2: Admission Status: Outpatient Location Performed: [facility] Diagnosis/ICD: R09.89-Other specified symptoms and signs involving the circulatory and respiratory systems Indication: CAD, Right CEA, Peripheral Vascular Disease, 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, HTN, Hyperlipidemia, Former Smoker, Ischemic Cardiomyopathy, COPD, PTCA-07/2018 Procedure/CPT: 93355 Cerebrovascular Carotid Duplex scan complete-19927 CONCLUSIONS: Right Carotid: Findings are consistent with [...] cm/s Right Left ICA/CCA Ratio 0.5 0.8 [id number] Ludwig South MD, FACC Final Normal [facility] VASC LAB Carotid Artery Dupl ex Ultrasoundon 04-13-2022 US.doppler Carotid arteries [facility] 250 DO Work Phone: Height or Weight NOT Doneon 02-26-2022 Fall risk assessment a) No falls within the last year [facility] 250 DO Work Phone: Tobacco use status CPHS b) No [facility] 250 DO Work Phone: Office [...] (more content not included)... Normal [facility] CARDIAC STRESS/REST INJE CTIONon 08-19-2021 [facility] CARDIAC STRESS/REST INJECTION Patient Name: SANCHEZ MERRITT STUDY: MYOCARDIAL PERFUSION STRESS TEST WITH LEXISCAN Performing facility: [facility], [address] [place] [address], [address], [place] [address] [facility] Provider: Tracey Pitt DO, FACC PCP: Dr. Young Lentz Supervising provider: Ludwig South MD, FACC INDICATION: CAD; ICM SOB; HISTORY: Gender: F; Age: 76 y/o ; Height: 160.02 cm; Weight: 58.221612 kg. High Cholesterol; CAD; SOB; COPD; Quit smoking 12 years ago. Cardiac catheterization on 2018. PTCA on 2018. COMPARISON: No comparison. 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 Respiratory: (more content not included)... Normal [employer] Tobacco Screening.on 022 Adult depression screening assessment Yes [facility] DO Work Phone: Fall risk assessment a) No falls within the last year [facility] 250 DO Work Phone: Tobacco use status [facility] b) No [facility] 250 DO Work Phone: Tobacco Screening. 2-More than half the days [facility] 250 DO Work Phone: Tobacco Screening. 1-Several days [facility] 250 DO Work Phone: Tobacco Screening. 0-Not at all [facility] 250 DO Work Phone: Tobacco Screening. 3-Nearly every day [facility] 250 DO Work Phone: Tobacco Screening. Somewhat Difficult [facility] Marta Arango DO Work Phone: CNOVon 05-23-2021 CNOV Office Visit (PAINCC ) SANCHEZ MERRITT ([id number]) 1945 F Date Time Provider Department 05/23/21 [...] interventional pain procedures: Seen pain management in [facility] Did an injection with no relief [...] radicular pain. (more content not included)... Normal [facility] Ver[facility] SANCHEZ MERRITT ([id number]) 1945 F Date Time Provider Department 05/23/21 [...] be called to [facility] in [place]. States it was discussed at last OV. Please advise. Cleopatra King LPN 05/28/2021 11:50 AM Signed Called the patient and advised that normally Lien Hughes LPN 05/28/2021 12:02 PM Signed Tens unit was sent to [facility]. Cleopatra King LPN 05/28/2021 1:25 PM Signed Patient was notified that order was sent to [facility] and they would contact her. Allergies [...] Encounter Status:Closed by CLEOPATRA KING on 05/28/21 [facility] Covid-19 PCR (CVDTBH)on SARS-CoV-2 (COVID-19) RNA MEENAKSHI+probe Ql (Unsp spec) Not detected Normal NOT DETECTED [facility] Comment on above: Result Comment: This test is not yet approved or cleared by the [place] FDA. When there are no FDA-approved or cleared tests available, and other criteria are met, FDA can make tests available under an emergency access mechanism called an Emergency Use Authorization (EUA). The EUA for this test is supported by the Environmental Engineering Professor of Health and Human Service's (HHS's) declaration [...] consistent with SARS-CoV-2. Performed By: #### [facility] ####[facility] [id number] [place] [id number] Aggie XR LSPINE W_OBLS AND FLEX_EX Ton [...] LORENA LATIF Date: 2020-07-02 15:09 Normal [facility] CT CHEST HI RESOLUTIONon CT CHEST [...] by: JOSIE PARIS Date: 2020-06-18 14:59 Normal [facility] XR CHEST 2 Von 02-29-2020 XR CHEST [...] by: JOSIE PARIS Date: 2020-02-29 09:04 Normal [facility] Vital Signs Date Time Vital Sign Value Performing Clinician Facility 03-01-2023 14:00-0500 Diastolic blood pressure 68 mm[Hg] Adelaida Hargrove MD Work Phone: [facility] 03-01-2023 14:00-0500 Heart rate 68 /min Adelaida Hargrove MD Work Phone: [facility] 03-01-2023 14:00-0500 Systolic blood pressure 110 mm[Hg] Adelaida Hargrove MD Work Phone: [facility] 10-20-2022 13:15-0400 Body height 156.21 cm Margy Olivas Other [facility] Other 10-20-2022 13:15-0400 Body mass index (BMI) [Ratio] 24.16 kg/m2 Margy Olivas Other [facility] Other 10-20-2022 13:15-0400 Body temperature 96.9 [degF] Margy Olivas Other [facility] Other 10-20-2022 13:15-0400 Body weight 58.97 kg Margy Olivas Other [facility] Other 10-20-2022 13:15-0400 Diastolic blood pressure 60 mm[Hg] Margy Olivas Other [facility] Other 10-20-2022 13:15-0400 SaO2% (BldA) [Mass fraction] 93 % Margy Olivas Other [facility] Other 10-20-2022 13:15-0400 Systolic blood pressure 110 mm[Hg] Margy Carpenterprateekmaral Other [facility] Other 09-22-2022 10:00-0400 Body height 156.21 cm John Lentz Other [facility] Other 09-22-2022 10:00-0400 Body mass index (BMI) [Ratio] 24.16 kg/m2 John Lentz Other [facility] Other 05-30-2023 10:00-0400 Body weight 58.97 kg John Lentz Other [facility] Other 09-22-2022 10:00-0400 Diastolic blood pressure 68 mm[Hg] John Lentz Other [facility] Other 09-22-2022 10:00-0400 Systolic blood pressure 117 mm[Hg] John Lentz Other [facility] Other 06-01-2022 11:15-0500 Body height 156.21 cm John Lentz Other [facility] Other 06-01-2022 11:15-0500 Body mass index (BMI) [Ratio] 24.16 kg/m2 John Lentz Other [facility] Other 06-01-2022 11:15-0500 Body weight 58.97 kg John Lentz Other [facility] Other 06-01-2022 11:15-0500 Diastolic blood pressure 60 mm[Hg] John Lentz Other [facility] Other 06-01-2022 11:15-0500 SaO2% (BldA) [Mass fraction] 92 % John Lentz Other [facility] Other 06-01-2022 11:15-0500 Systolic blood pressure 102 mm[Hg] John Lentz Other [facility] Other 02-26-2022 15:00-0400 Body height 160.02 cm John Lentz Work Phone: [facility] 250 DO Work Phone: 02-26-2022 15:00-0400 Body mass index (BMI) [Ratio] Medical Reason Not Done John Lentz Work Phone: [facility] 250 DO Work Phone: 02-26-2022 15:00-0400 Diastolic blood pressure 60 mm[Hg] John Lentz Work Phone: [facility] 250 DO Work Phone: 02-26-2022 15:00-0400 Heart rate 80 /min John Lentz Work Phone: [facility] 250 DO Work Phone: 02-26-2022 15:00-0400 Systolic blood pressure 122 mm[Hg] John Lentz Work Phone: [facility] 250 DO Work Phone: 08-19-2021 12:00-0400 72 1 John Lentz Work Phone: [facility] 250 DO Work Phone: Comment on above: [id number] 08-07-2021 14:55-0400 Body height 160.02 cm John Lentz Work Phone: [facility] 250 DO Work Phone: 08-07-2021 14:55-0400 Diastolic blood pressure 68 mm[Hg] John Lentz Work Phone: [facility] 250 DO Work Phone: 08-07-2021 14:55-0400 Heart rate 89 /min John Lentz Work Phone: [facility] 250 DO Work Phone: 08-07-2021 14:55-0400 Systolic blood pressure 114 mm[Hg] John Lentz Work Phone: [facility] 250 DO Work Phone: 08-07-2021 14:55-0400 10 1 John Lentz Work Phone: [facility] Arango DO Work Phone: Comment on above: PHQ-9 TS Encounters Encounter Date Encounter Type Care Provider Facility Start: 04-14-2023 End: 04-14-2023 ambulatory John Lentz Other [facility] Other Start: 04-14-2023 Telephone encounter John Lentz [facility] Start: 04-12-2023 End: 04-12-2023 ambulatory [facility] Start: 04-02-2023 End: 04-02-2023 ambulatory John Lentz Other [facility] Other Start: 04-02-2023 Telephone encounter John Lentz [facility] Start: 03-23-2023 (Televisit) Televisit John Uribe [facility] Start: 03-23-2023 End: 03-23-2023 ambulatory John Lentz Other [facility] Other Start: 03-22-2023 End: 03-22-2023 ambulatory John Lentz Other [facility] Other Start: 03-22-2023 Telephone encounter John Lentz [facility] Start: 03-01-2023 End: 03-01-2023 ambulatory [facility] Start: 03-01-2023 End: 03-01-2023 Office outpatient visit 25 minutes Adelaida Hargrove MD Work Phone: [facility] Comment on above: Arteriosclerosis of coronary artery (Primary Dx); Bilateral carotid bruits; Hyperlipidemia, unspecified hyperlipidemia type; Ischemic cardiomyopathy; Primary hypertension; Stented coronary artery; Chronic obstructive pulmonary disease, unspecified COPD type (CMS/HCC); Wheelchair dependent; Amputation of leg (CMS/HCC); History of right-sided carotid endarterectomy Start: 01-27-2023 End: 01-27-2023 ambulatory John Abhijeet Other [facility] Other Start: 01-27-2023 Telephone encounter John Abhijeet [facility] Start: 01-25-2023 End: 01-25-2023 ambulatory John Lentz Other [facility] Other Start: 01-25-2023 Telephone encounter John Abhijeet [facility] Start: 01-08-2023 End: 01-08-2023 ambulatory John Abhijeet Other [facility] Other Start: 01-08-2023 Telephone encounter John Abhijeet [facility] Start: 12-02-2022 End: 12-02-2022 ambulatory John Lentz Other [facility] Other Start: 12-02-2022 Telephone encounter John Abhijeet [facility] Start: 11-17-2022 End: 11-17-2022 ambulatory Margy Olivas Facility:[facility] Start: 10-20-2022 End: 10-20-2022 ambulatory Margy Olivas Other [facility] Other Start: 10-20-2022 FQ visit new patient Margy Duarte o [facility] Vascular Surgery Start: 09-23-2022 End: 09-23-2022 ambulatory John Lentz Other [facility] Other Start: 09-23-2022 Telephone encounter John Abhijeet [facility] Start: 09-22-2022 End: 09-22-2022 ambulatory John Lentz Other [facility] Other Start: 09-22-2022 Office outpatient vi sit 25 minutes John Lentz [facility] Start: 09-22-2022 Telephone encounter John Lentz [facility] Alfredo Start: 08-13-2022 Rx Renewal John Lentz Work Phone: [facility] 250 DO Work Phone: Start: 07-15-2022 End: 07-15-2022 ambulatory John Lentz Other [facility] Other Start: 07-15-2022 Telephone encounter John Lentz [facility] Start: 06-01-2022 End: 06-01-2022 ambulatory John Lentz Other [facility] Other Start: 06-01-2022 Office outpatient vi sit 25 minutes John Lentz [facility] Start: 05-05-2022 End: 05-05-2022 ambulatory John Lentz Other [facility] Other Start: 05-05-2022 Telephone encounter John Lentz [facility] Start: 04-17-2022 Chart Update John Lentz Work Phone: [facility] 250 DO Work Phone: Start: 04-13-[address] Adelaida Griggs ty:[id number] Start: 02-26-2022 Office outpatient vi sit 25 minutes John Lentz Work Phone: [facility] 250 DO Work Phone: Start: 02-26-[address] Adelaida Griggs ty:[id number] Start: 12-12-2021 Pre-procedure evalua tion check John Lentz Other [facility] Other Start: 09-11-2021 Rx Renewal John Lentz Work Phone: [facility] 250 DO Work Phone: Start: 09-08-2021 Rx Renewal John Lentz Work Phone: [facility] 250 DO Work Phone: Start: 05-09-2022 Chart Update John Lentz Work Phone: [facility] 250 DO Work Phone: Start: 08-19-[address] Tracey Pitt Facility:[id number] Start: 08-07-2021 Office outpatient vi sit 25 minutes John Lentz Work Phone: [facility] 250 DO Work Phone: Start: 08-07-[address] John Lentz Facility: Start: 07-21-2021 Rx Renewal John Lentz Work Phone: [facility] 250 DO Work Phone: Start: 01-14-[address] [facility] Start: 12-09-2020 End: 12-10-[address] JOHN LENTZ Facility:H1 Start: 11-28-2020 End: 11-28-[address] JOHN LENTZ Facility:H1 Start: 10-29-2020 End: 10-30-[address] DORA BELLA Facility:[facility]1 Start: 10-24-2020 End: 10-24-[address] JOHN LENTZ Facility:H1 Start: 10-15-2020 End: 10-16-[address] DORA BELLA Facility:H1 Start: 10-04-2020 Encounter for preprocedural laboratory examination DR DORA BELLA [facility] Start: 10-01-2020 End: 10-01-[address] DORA [...] DTaP/Tdap/Td Vaccines (2 - Td or Tdap) [facility] Start: 11-08-2023 End: 11-08-2023 Patient encounter procedure 11/08/2023 1:15 PM EDT Office Visit [facility] [address] [facility] [address] [place] [address] Adelaida Hargrove MD [address] [place] [address] [address] [place] [address] [facility] Start: 03-01-2023 FUV, Provider: Adelaida Hargrove, Status: Pen, Time: 2:00 PM FUV, Provider: Adelaida Hargrove, Status: Pen, Time: 2:00 PM [facility] 250 DO Work Phone: Start: 03-01-2023 End: 03-01-2024 Comprehensive metabolic 2000 panel - Serum or Plasma Comprehensive Metabolic Panel Lab Routine Arteriosclerosis of coronary artery Primary hypertension Stented coronary artery Expected: 03/01/2023 (Approximate), Expires: 03/01/2024 [facility] Service Area Work Phone: Comment on above: Expected: 03/01/2023 (Approximate), Expires: 03/01/2024 Start: 03-01-2023 End: 03-01-2024 Lipid 1996 panel - Serum or Plasma Lipid Panel Lab Routine Hyperlipidemia, unspecified hyperlipidemia type Expected: 03/01/2023 (Approximate), Expires: 03/01/2024 [facility] Work Phone: Comment on above: Expected: 03/01/2023 (Approximate), Expires: 03/01/2024 Start: 12-25-2022 Influenza vaccination Influenza Vacc ine (#1) [facility] Start: 04-13-2022 CAROTID, Provider: [facility]TR[facility] 01,[id number], Status: Pen, Time: 10:45 AM CAROTID, Provider: [facility] ULTRASOUND 01,[id number], Status: Pen, Time: 10:45 AM [facility] Work Phone: Start: 04-13-2022 ECHO, Provider: [facility] ULTRASOUND 01,[id number], Status: Pen, Time: 10:45 AM ECHO, Provider: [facility] ULTRASOUND 01,[id number], Status: Pen, Time: 10:45 AM [facility] 250 DO Work Phone: Start: 01-29-2022 FUV, Provider: Adelaida Hargrove, Status: Pen, Time: 1:00 PM FUV, Provider: Adelaida Hargrove, Status: Pen, Time: 1:00 PM [facility] 250 DO Work Phone: Start: 08-19-2021 STRESS NUC, Provider : [facility] THOMASI NUCLEAR 01,[id number], Status: Pen, Time: 12:00 PM STRESS NUC, Provider: [facility] NUCLEAR 01,[id number], Status: Pen, Time: 12:00 PM [facility] 250 DO Work Phone: Start: 08-07-2021 FUV, Provider: Tracey Pitt, Status: Pen, Time: 2:45 PM FUV, Provider: Tracey Pitt, Status: Pen, Time: 2:45 PM [facility] 250 DO Work Phone: Start: 06-08-2021 COVID-19 Vaccine (4 - Moderna series) COVID-19 Vaccine (4 - Moderna series) [facility] Start: 11-24-2018 Pneumococcal Vaccine : 65+ Years (2 - PPSV23 or PCV20) Pneumococcal Vaccine: 65+ Years (2 - PPSV23 or PCV20) [facility] Start: 1993 Zoster Vaccines (1 o f 2) Zoster Vaccines (1 of 2) [facility] Start: 1961 Diabetes mellitus screening Diabetes Screening [facility] Start: 1961 Hepatitis C screening Hepatitis C Sc [facility] Start: 1943 Lipid panel Lipid Panel [facility] Start: 1943 Medicare Annual Wellness Visit Medicare Annual Wellness Visit (AWV) [facility] Start: 1943 Screening for osteoporosis Bone Density Scan [facility] Immunizations Immunization Date Immunization Notes Care Provider Fa sendy 04-13-2021 Pfizer-BioNTech COVID-19 Vacc 30 MCG/0.3ML Intramuscular Suspension John Lentz Work Phone: [facility] 250 DO Work Phone: 07-02-2020 Moderna COVID-19 Vaccine 100 MCG/0.5ML Intramuscular Suspension [facility]z Work Phone: [facility] DO Work Phone: 06-03-2020 Moderna COVID-19 Vaccine 100 MCG/0.5ML Intramuscular Suspension John Lentz Work Phone: [place] [address] DO Work Phone: 09-29-2018 pneumococcal conjuga te vaccine, 13 valent John Lentz Work Phone: [place] [address] DO Work Phone: 08-16-2018 tetanus toxoid, redu luis diphtheria toxoid, and acellular pertussis vaccine, adsorbed Adelaida Hargrove MD Work Phone: [facility] Work Phone: 02-16-2017 influenza virus vaccine, split virus (incl. purified surface antigen) John Lentz Other [facility] [employer] Other 02-16-2017 influenza, high dose seasonal, preservative-free John Lentz Work Phone: [place] [address] DO Work Phone: 02-16-2017 influenza virus vaccine, unspecified formulation Adelaida Hargrove MD Work Phone: [facility] Work Phone: 01-24-2017 influenza virus vaccine, unspecified formulation John Lentz Work Phone: [facility] [employer] DO Work Phone: 01-25-2016 influenza virus vaccine, split virus (incl. purified surface antigen) John Lentz Other [facility] [employer] Other 01-25-2016 influenza, high dose seasonal, preservative-free John Lentz Work Phone: [facility] [employer] DO Work Phone: 03-02-2015 influenza, injectabl e, quadrivalent, preservative free John Lentz Work Phone: [facility] 250 DO Work Phone: 03-02-2015 tetanus and diphther ia toxoids, adsorbed, preservative free, for adult use (5 Lf of tetanus toxoid and 2 Lf of diphtheria toxoid) John Lentz Other [facility] [employer] Other 02-12-2009 pneumococcal conjuga te vaccine, 7 valent Johnabimael Lentz Work Phone: [facility] 250 DO Work Phone: 01-30-2009 influenza virus vaccine, whole virus John Kevin Lentz Work Phone: [facility] 250 DO Work Phone: Payers Date Payer Category Payer Unknown [id number] 2016 Unknown 2016 Unknown [id number] 2008 Medicare MEDICARE MEDICAR E PART A AND B [id number] 2008-Present [address] [place] [address] [id number] 1959 Medicare [id number] 1959 Self-pay 1959 Unknown [id number] 1943 Unknown [id number] 2.16.840.1.630814.3.579.2.593 1943 Unknown [id number] 2.16.840.1.234555.3.579.2.593 1943 Unknown [id number] 2.16.840.1.362584.3.579.2.593 1943 Unknown [id number] 2.16.840.1.275098.3.579.2.593 1943 Unknown [id number] 2.16.840.1.156710.3.579.2.593 1943 Unknown [id number] 2.16.840.1.858538.3.579.2.593 1943 Unknown [id number] 2.16.840.1.150501.3.579.2.593 1943 Unknown [id number] 2.16.840.1.450227.3.579.2.593 1943 Unknown [id number] 2.16.840.1.678703.3.579.2.593 1943 Unknown [id number] 2.16.840.1.682754.3.579.2.593 1943 Unknown [id number] 2.16.840.1.963048.3.579.2.593 1943 Unknown [id number] 2.16.840.1.432802.3.579.2.593 1943 Unknown [id number] 2.16.840.1.593045.3.579.2.593 1943 Unknown [id number] 2.16.840.1.944399.3.579.2.593 1943 Unknown [id number] 2.16.840.1.688944.3.579.2.356 1943 Unknown [id number] 2.16.840.1.668362.3.579.2.356 1943 Unknown [id number] 2.16.840.1.947952.3.579.2.1068 1943 Unknown [id number] 2.16.840.1.402517.3.579.2.1068 1943 Unknown [id number] 2.16.840.1.868823.3.579.2.1244 Unknown [id number] 2.16.840.1.129043.3.579.2.593 Unknown [id number] 2.16.840.1.470688.3.579.2.593 Unknown [id number] 2.16.840.1.211949.3.579.2.531 Social History Date Type Detail Facility Start: 08-07-2021 End: 03-01-2023 Daily caffeine consumption, 2-3 servings a day Daily caffeine consumption, 2-3 servings a day [facility] Comment on above: Quit cigs 2009; 1 cup of coffee harshil y; Start: 08-07-2021 End: 03-01-2023 Sex Assigned At [facility] Start: 03-01-2023 Tobacco smoking stat us NHIS Ex-smoker [facility] End: 04-26-2009 History of tobacco use Current smoker [facility] Work Phone: End: 04-26-2009 History of tobacco use Cigarette Smoker [facility] Work Phone: Start: 03-01-2023 Tobacco use and exposure Smokeless tobacco non-user [facility] Work Phone: Start: 03-01-2023 Alcohol intake Lifetime non-d annemarie (finding) [facility] Work Phone: Start: 1945 [facility]: Start: 02-19-2023 End: 03-01-2023 Exposure to SARS-CoV-2 (event) Not sure [facility] Functional Status Date Assessment Result Facility 08-07-2021 PHQ-9 [id number] Moderate (10-14) -[facility] 250 DO Work Phone: Clinical Notes 07-25-2018 to 04-14-2023 Note Date & Type Note Facility 04-14-2023 Evaluation note Encounter Date Diagnosis Assessment Notes Mar, Confusion (ICD-10 - R41.0) [facility] Other [id number] [facility] Note-stable, concerns for hypotension given first BP in office had [facility] Note-recovered EF per recent echo 03/2023 EF 55-60% -NYHA unable to asses given wheel chair bound and left AKA< she does state she is able to do basic ADLs -GDMT: stop lisionpril given hypotension, stop coreg, Will start toprol xl 25mg daily and do event monitor to watch for RVR -prioritizing rate control at this time -continue aldactone 25mg, start toprol xl 25mgUnParkwood Hospital12-18-2023 Note-s/p left AKAUniversity [facility] Note-noted in hx, sees a vascular [facility] 04-12-2023 Note-s/p stent to RCA and ostial left main in 2019 -will increase to high intensity statin 40mg lipitor given she is done drinking -stop ASA and start eliquis 2.5mg BID for AF, ct plavix -noted to not be a good candidate for CABG given resp diseaseUnParkwood Hospital12-18-2023 Note- stable, she is on supplemental O2 as needed - she may not be a great candidate for amiodaroneUniversC[facility]12-[facility] NoteNew patient here to establish care. She was recently discharged from [facility] for new onset afib. AC was not started. She has a right carotid stent that was placed years ago at [facility]. She does not still follow with vascular surgeon. She is transferring cardiology care from [facility] to [place]. Review of Systems Cardiovascular: Positive for dyspnea on exertion and leg swelling (RLE). Respiratory: Positive for cough and shortness of breath. All other systems reviewed and are negative.[facility] 04-12-2023 NoteUT Electrophysiology Consult Note Reason [...] follow-up with cardiology and is switching to [facility] She was admitted to [facility] with new onset A-fib, alcohol withdrawal which was treated with benzodiazepines, sepsis, respiratory failure, COPD exacerbation all likely due to COVID infection, she was discharged 04/01/2023. 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 She states she has stopped drinking [...] safe in r (more content not included)...[facility]11-28-2023 Evaluation note* Encounter Date Diagnosis Assessment [...] such as patterns or other associated symptoms [facility] Other 11-27-2023 Evaluation note* Encounter Date Diagnosis Assessment Notes Treatment Notes Treatment Clinical Notes Feb, Chronic pain (ICD-10 - G89.29) [facility] Other 11-06-2023 History of Present illness Narrative* [...] List Diagnosis Date Noted Amputation of leg ([facility]) 03/01/2023 History of right-sided carotid endarterectomy 03/01/2023 [...] vertebral flow Problems addressed today included atherosclerotic [place] vessel coronary artery disease, hyperlipidemia, cerebrovascular disease, [...] MONTHS Adelaida Hargrove MD [facility] Work Phone: 1(929) 186-759111-06-2023 Instructions* Patient Instructions* Tran Morales LPN - [...] time of your visit. documented [facility] Work Phone: 1(299) 808-842806-27-2023 Evaluation note* Encounter Date Diagnosis Assessment Notes [...] discussion, agrees with plan, denies any questions. [facility] Other 05-30-2023 Evaluation note* Encounter Date Diagnosis Assessment Notes Treatment Notes Treatment Clinical Notes August, Acute bacterial conjunctivitis of both eyes (ICD-10 - H10.33) [place] [facility] is contagious. Wash hands frequently and [...] - G89.29) Reviewed OARRS report. Refilled rx. [facility] Other 05-30-2023 Evaluation note* Encounter Date Diagnosis Assessment Notes Treatment Notes Treatment Clinical Notes August, Chronic pain (ICD-10 - G89.29) [facility] Other 02-06-2023 Evaluation note* Encounter Date Diagnosis [...] Continue to cover and monitor area. Vaccuum tube cleaner fell on her leg and it is tender. May, Lumbar degenerative disc disease (ICD-10 - M51.36) chronic pain due to lumbar issues and BKA amputation. will call when pain med refill is needed. [facility] Other 04-14-2022 History of Present illness Narrative* [...] Ejection fraction is typically been estimated at kroqwb33%. She indicates that her breathing has progressively worsened again. She does not believe there is been really any change to her pulmonary status. [facility]ango DO Work Phone: 1(540) 503-977704-14-2022 History of Present illness Narrative* Previously seen [...] profile lipid profile prior to next visit. -[facility] DO Work Phone: 1(369) 673-253004-14-2022 History of Present illness Narrative* Previously seen [...] Ejection fraction is typically been estimated at xtokbl89%. She indicates that her breathing has progressively [...] profile lipid profile prior to next visit. [facility] Work Phone: 1(681) 107-716901-28-2022 NoteHNO ID: [id number] Author: Chavez Dillard MD Service: ? Author [...] interventional pain procedures: Seen pain management in [facility] Did an injection with no relief [...] reproduction bilaterally. Extremities: Peripheral (more content not included)...[facility] 12-09-2020 NotePROCEDURE: MRI THIGH LT WO CON [...] Electronically authenticated by: JOSIE PARIS Date: 2020-12-09 16:49[facility]08-05-2021 NoteHISTORY AND PHYSICAL EXAMINATION HISTORY: This patient [...] be doing so in the near future. [facility] Signed and Approved by: ROXI MCCLENDON 11/28/2020 09:43:00[facility]08-05-2021 NoteOPERATIVE NOTE OPERATION DATE: 11-28-20 ANESTHETIC: Topical. [...] followup the following day for postoperative care. [facility] Signed and Approved by: ROXI MCCLENDON 12/26/2020 11:09:00[facility]07-06-2021 NotePAIN MANAGEMENT Consultation Date: 10-29-20 CHIEF COMPLAINT: [...] and Approved by: DR DORA BELLA 11/05/2020 12:13:00[facility]07-01-2021 NoteHISTORY AND PHYSICAL EXAMINATION HISTORY: The patient [...] and go forward with her elective procedure. [facility] Signed and Approved by: ROXI MCCLENDON 10/24/2020 11:46:00[facility]07-01-2021 NoteOPERATIVE NOTE OPERATION DATE: 10-24-20 ANESTHETIC: Topical. [...] followup the following day for postoperative care. [facility] Signed and Approved by: ROXI MCCLENDON 11/27/2020 16:58:00[facility]06-22-2021 NotePAIN MANAGEMENT Consultation Date: 10-15-20 CHIEF COMPLAINT: Left bhpkv-zze-fqor amputation stump pain. HISTORY OF PRESENT ILLNESS: [...] 2. Lumbar spondylosis. 3. Status post left hdejk-qwq-mcxt amputation 2018. 4. Stump pain. 5. Neuromatous [...] daughter understand and would like to proceed. [facility] Signed and Approved by: DR DORA BELLA 10/29/2020 10:44:00[facility]06-22-2021 NotePAIN MANAGEMENT PROCEDURE NOTE Date: 10-15-20 PRE AND POST PROCEDURE DIAGNOSIS: Neuromatous stump pain, neuromatous pain status post left mvlll-lxd-gvui amputation. PROCEDURE NAME:Neuroma stump injection. PROCEDURE: Subsequent [...] pain symptomatology that would have been present. [facility] Signed and Approved by: DR DORA BELLA 10/29/2020 10:44:00[facility]04-26-2021 NotePAIN MANAGEMENT Consultation Date: 08-19-20 HISTORY OF [...] baclofen. Of note, the patient is on retirement anticoagulant medication, Plavix. On July 30 the [...] her pain. Dictated by Hemant Red APRN [facility] Signed and Approved by: HEMANT RED 08/26/2020 16:35:00[facility]03-08-2021 NoteCONSULTATION Consultation Date: 07/01/2020 PAIN MANAGEMENT CONSULTATION HISTORY OF PRESENT ILLNESS: This is a very pleasant 75-year-old female patient who comes to the [facility] for the very first time. [...] patient had stents July of 2018 at [facility]. Originally the patient was placed on Plavix [address] Arnold; however, Dr. Pitt in [place] took over the Plavix medication. The patient [...] the lumbar x-ray is without any deformities. [facility] Signed and Approved by: HEMANT RED 07/08/2020 17:02:00[facility]03-08-2021 NoteCONSULTATION Procedure Date: 07/01/2020 PROCEDURE NOTE: PREOPERATVE [...] signs were obtained and were stable. . [facility] Signed and Approved by: HEMANT RED 07/08/2020 17:03:00[facility]04-01-2019 History of Present illness Narrative* Mrs. Merritt [...] is completed. No change made to medications. -[facility] [employer] DO Work Phone: Evaluation noteNo InformationNort [employer] Other Evaluation note* Diagnosis Arteriosclerosis of coronary [...] right-sided carotid endarterectomy documented in this encounter [facility] Work Phone: History general Narrative - Reported* [...] Hospitalization History Suicide Hospitalization History See above [facility] Other History general Narrative - Reported* Type [...] Hospitalization History Suicide Hospitalization History See above [facility] Other Reason for referral (narrative)* Consultation (Routine) - Authorized Specialty Diagnoses / Procedures Referred By Sherry chicas Referred To Contact Cardiology Diagnoses Arteriosclerosis of coronary artery Procedures Follow Up In Cardiology Adelaida Hargrove MD [address] [facility] [address] [place] [address] Adelaida Hargrove MD [address] [place] [address] [address] [place] [address] Referral ID Status Reason Start Date Expiration Date V isits Requested Visits Authorized [id number] Authorized 03/01/2023 02/29/2024 1 1 [facility] Work Phone: Summary Purpose Family History Unknown [...] (peripheral yuli ry disease) (I73.9) Referral Organization [facility] iglesia Referring Provider First Name John Referring Provider Last Name Abhijeet Referring Provider Specialty [facility] Referred Organization [facility] Referred Provider Jaspreet Ventura Referred Address [address] [place] [phone] Referred Provider Specialty Vascular April christianne Referral Priority Routine General Notes Dai Aaron 01:06:20 PM >received today, faxed P2P Additional Source Comments INFORMATION SOURCE (unrecogn ized section and content) DATE CREATED AUTHOR 01/02/2021 [facility] DATE CREATED AUTHOR AUTHOR'S ORGANIZ ATION 07/18/2021 [facility] DATE CREATED AUTHOR AUTHOR'S ORGANIZ ATION 02/27/2022 [facility] DATE CREATED AUTHOR AUTHOR'S ORGANIZ ATION 02/27/2022 [employer] DATE CREATED AUTHOR AUTHOR'S ORGANIZ ATION 04/17/2022 [facility] DATE CREATED AUTHOR AUTHOR'S ORGANIZ ATION 12/18/2022 [facility] DATE CREATED AUTHOR AUTHOR'S ORGANIZ ATION 03/02/2023 [facility] DATE CREATED AUTHOR AUTHOR'S ORGANIZ ATION 04/13/2023 [facility] REASON FOR VISIT (unrecogniz ed section and content) OV or UA? 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 [employer] provides no warranty or guarantee of the accuracy or completeness of information in this document.
--- NOTE | 2023-04-22 11:51 | ED_ITS ---
HPI - SOB/Dyspnea General Chief Complaint: Shortness of Breath/Dyspnea Stated Complaint: SHORTNESS OF BREATH Time Seen by Provider: 04/22/23 11:51 Source: patient and family Mode of arrival: Wheelchair History of Present Illness HPI Narrative: patient's here with her daughter for evaluation of increasing dyspnea. The daughter wanted to bring her in yesterday but she declined. She does have an oxygen set up at home and she is used to wearing twenty-four seven but sometimes there is not enough tubing for her to wear it. She says her sputum is yellow and normally gets white. She just finished up an antibiotic but compliance is questionable. The antibiotic was for infection in her right leg. He also noticed increasing edema in her right leg. 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 They suspect that she has atrial fibrillation. She really was somewhat a limited historian. She's not having any aches pains fever shakes chills sore throat or influenza type symptoms. She does have coronary artery disease and severe peripheral arterial disease. She has several coronary stents about three years old but she doesn't know how many. She lives with hher daughter. Her pulse oximetry is eighty sixty-seven percent on room air but this time she moves up to 96-97 percent on 2 L. Related Data Home Medications Medication Instructions Recorded Confirmed albuterol 90 mcg/actuation aerosol 90 mcg inhalation .q 4 hours PRN 03/27/23 04/22/23 inhaler sob atorvastatin 20 mg tablet 20 mg PO BEDTIME 03/27/23 04/22/23 budesonide-formoterol HFA 160 2 inh inhalation Q12H 03/27/23 04/22/23 mcg-4.5 mcg/actuation aerosol inhaler (Symbicort) docusate sodium 100 mg capsule 100 mg PO BID 03/27/23 04/22/23 duloxetine 60 mg capsule,delayed 60 mg PO DAILY 03/27/23 04/22/23 release gabapentin 800 mg tablet 800 mg PO TID 03/27/23 04/22/23 nitroglycerin 0.4 mg sublingual 0.4 mg sublingual Q5M PRN chest 03/27/2304/22 tablet pain ondansetron 4 mg disintegrating 4 mg PO Q4H PRN nausea and vomiting 03/27/23 04/22/23 tablet oxycodone 10 mg tablet 10 mg PO Q6H PRN pain 03/27/23 04/22/23 pantoprazole 40 mg tablet,delayed 40 mg PO DAILY 03/27/23 04/22/23 release spironolactone 25 mg tablet 25 mg PO DAILY 03/27/23 04/22/23 tizanidine 4 mg tablet 4 mg PO TID PRN muscle spasticity 03/27/23 04/22/23 apixaban 2.5 mg tablet (Eliquis) 2.5 mg PO BID 04/22/23 04/22/23 metoprolol succinate 25 mg 25 mg PO DAILY 04/22/23 04/22/23 tablet,extended release 24 hr mupirocin 2 % topical ointment 1 applic topical BID 04/22/23 04/22/23 Allergies Allergy/AdvReac Type Severity Reaction Status Date / Time No Known Drug Allergies Allergy Verified 03/27/23 07:02 [facility] Medical History (Updated 04/22/23 @ 13:33 by Neal Cross MD) Alcohol abuse ?F10.10 - Alcohol abuse, uncomplicated (ICD-10) New onset a-fib ?I48.91 - Unspecified atrial fibrillation (ICD-10) COVID-19 ?U07.1 - COVID-19 (ICD-10) Acute and chronic respiratory failure with hypoxia ?J96.21 - Acute and chronic respiratory failure with hypoxia (ICD-10) HLD (hyperlipidemia) ?E78.5 - Hyperlipidemia, unspecified (ICD-10) PAD (peripheral artery disease) ?I73.9 - Peripheral vascular disease, unspecified (ICD-10) COPD (chronic obstructive pulmonary disease) ?J44.9 - Chronic obstructive pulmonary disease, unspecified (ICD-10) Oxygen dependent ?Z99.81 - Dependence on supplemental oxygen (ICD-10) Surgical History (Updated 03/30/23 @ 09:11 by Nori Dyer) Amputated left leg ?S88.912A - Complete traumatic amputation of left lower leg, level unspec ified, initial encounter (ICD-10) Social History Within the past year, how often did you have a drink containing alcohol: 4 or more times a week Within the past year, how many standard drinks containing alcohol did you have on a typical day: 3 or 4 Within the past year, how often did you have six or more drinks on one occasion: weekly Total score: 5 Score interpretation: A score of 3 or more indicates drinking is likely to affect patient's safety. Smoking status: Former smoker Exam Constitutional Vital Signs, click to edit/add: Last Vital Signs Temp 98.4 F 04/22/23 11:11 Pulse 113 H 04/22/23 11:11 Resp 24 04/22/23 11:11 BP 110/60 04/22/23 11:11 Pulse Ox 86 L 04/22/23 11:38 O2 Del Method Room Air 04/22/23 11:38 O2 Flow Rate 2 04/22/23 11:38 Course Vital Signs Vital signs: Vital Signs Temperature 98.4 F 04/22/23 11:11 Pulse Rate 113 H 04/22/23 11:11 Respiratory Rate 24 04/22/23 11:11 Blood Pressure 110/60 04/22/23 11:11 Pulse Oximetry 86 L 04/22/23 11:11 Oxygen Delivery Method Room Air 04/22/23 11:11 Temperature 98.4 F 04/22/23 11:11 Pulse Rate 113 H 04/22/23 11:11 Respiratory Rate 24 04/22/23 11:11 Blood Pressure 110/60 04/22/23 11:11 Pulse Oximetry 86 L 04/22/23 11:38 Oxygen Delivery Method Room Air 04/22/23 11:38 Oxygen Delivery Flow Rate 2 04/22/23 11:38 MDM - SOB/Dyspnea MDM Narrative Medical decision making narrative: this patient who has underlying chronic obstructive pulmonary disease he has a new substantial right upper lobe pneumonia possible healthcare facility related. Blood cultures have been done. Lactate level is normal. Her BNP is elevated so I have not given her the standard 30 mL/kg fluid bolus. Her cardiac enzyme is normal. Case was discussed with the on-call hospitalist and he will receive her care and write further orders. She is stable at this time. Discharge Plan Discharge Chief Complaint: Shortness of Breath/Dyspnea Clinical Impression: Pneumonia Patient Disposition: Admitted As Inpatient Time of Disposition Decision: 13:33 Prescriptions / Home Meds: No Action atorvastatin 20 mg tablet 20 mg PO BEDTIME docusate sodium 100 mg capsule 100 mg PO BID duloxetine 60 mg capsule,delayed release(DR/EC) 60 mg PO DAILY gabapentin 800 mg tablet 800 mg PO TID nitroglycerin 0.4 mg tablet, sublingual 0.4 mg sublingual Q5M PRN (Reason: chest pain) oxycodone 10 mg tablet 10 mg PO Q6H PRN (Reason: pain) pantoprazole 40 mg tablet,delayed release (DR/EC) 40 mg PO DAILY spironolactone 25 mg tablet 25 mg PO DAILY budesonide-formoterol [Symbicort] 160-4.5 mcg/actuation HFA aerosol inhaler 2 inh INHALATION Q12H albuterol 90 mcg/actuation aerosol 90 mcg inhalation .q 4 hours PRN (Reason: sob) ondansetron 4 mg tablet,disintegrating 4 mg PO Q4H PRN (Reason: nausea and vomiting) Rx Instructions: give 1st dose 30min before emetogenic chemo tizanidine 4 mg tablet 4 mg PO TID PRN (Reason: muscle spasticity) Eliquis 2.5 mg tablet 2.5 mg PO BID metoprolol succinate 25 mg tablet extended release 24 hr 25 mg PO DAILY mupirocin 2 % ointment 1 applic TOPICAL BID Referrals: Nettie Jha MD [Primary Care Provider] - 1 week
--- NOTE | 2023-04-22 12:01 | ECG_ITS ---
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
--- NOTE | 2023-04-22 12:01 | XR_ITS ---
The [address] [address] Patient Name: SANCHEZ SAMSON MRN: [id number] date: 1945 Sex: F Assigned Patient Location: ER Current Patient Location: ER Accession/Order Number: [id number] Exam Date: 04/22/2023 12:20 Report Date: 04/22/2023 12:59 At the request of: NATALY WEEKS Procedure: XR chest 1V EXAMINATION: XR chest 1V 04/22/2023 9:58 AM PST HISTORY: cough TECHNIQUE: Single frontal view of the chest acquired. COMPARISONS: Chest x-ray 03/31/2023. FINDINGS: Lines/tubes/other: An electronic device projects over the left upper thorax. Thoracic spinal stimulator projects over the lower thoracic spine. Heart and mediastinum: Mildly enlarged cardiac silhouette, similar. Bones: No acute osseous abnormality. Lungs: Moderate consolidation of the right upper lobe. Mild bibasilar atelectasis and/or scarring. Pleura: There is no significant pleural effusion or pneumothorax. Other: None. XR/XR chest 1V IMPRESSION: Right upper lobe pneumonia. Electronically authenticated by: HUMAIRA HERNANDEZ Date: 04/22/2023 12:59
[2023-04-22 12:16] LABS: Basophils Percent Auto 0.5 % (0.2-2.0); Eosinophils Absolute Auto 0.1 10^3/uL (0.0-0.7); Eosinophils Percent Auto 1.6 % (0.9-7.0); Hematocrit 34.7 % (36.0-48.0); Hemoglobin 10.4 g/dL (12.0-16.0); Immature Granulocytes Abs Auto 0.02 10^3/uL (0.00-0.03); Immature Granulocytes Pct Auto 0.3 % (0.0-0.5); Lymphocytes Percent Auto 15.9 % (20.5-60.0); Mean Corpuscular Hemoglobin 31.9 pg (26.7-34.0); Mean Corpuscular Volume 106.4 fL (81.0-99.0); Mean Platelet Volume 10.2 fL (9.5-13.5); Monocytes Absolute Auto 0.7 10^3/uL (0.3-0.8); Monocytes Percent Auto 10.8 % (1.7-12.0); Neutrophils Absolute Auto 4.3 10^3/uL (1.4-6.5); Neutrophils Percent Auto 70.9 % (43.0-75.0); Platelet Count 405 10^3/uL (150-450); Red Blood Count 3.26 10^6/uL (4.20-5.40); White Blood Count 6.1 10^3/uL (4.0-11.0)
[2023-04-22] MEDS: IPRATROPIUM/ALBUTEROL SULFATE 3 ML AMPUL.NEB IH ×2 (12:22→16:18)
[2023-04-22 12:25] LABS: INR 1.06; Prothrombin Time 11.2 sec (9.0-11.6)
--- NOTE | 2023-04-22 12:27 | RESP.RT ---
Patient states she wears 3l at home
[2023-04-22 12:35] LABS: Alanine Aminotransferase <6 U/L (14-59); Albumin Globulin Ratio 0.5; Albumin Level 2.3 g/dL (3.4-5.0); Alkaline Phosphatase 81 U/L (46-116); Anion Gap 15.3; Aspartate Amino Transferase 15 U/L (15-37); BUN Creatinine Ratio 8.6; Bilirubin Total 0.3 mg/dL (0.2-1.0); Calcium 8.9 mg/dL (8.5-10.1); Carbon Dioxide 26.7 mmol/L (21.0-32.0); Chloride 104 mmol/L (98-107); Estimated GFR (African America >60 (>=60); Estimated GFR (Non-African Ame >60 (>=60); Globulin 4.2 g/dL; Glucose 106 mg/dL (74-106); Sodium 142 mmol/L (136-145); Total Protein 6.5 g/dL (6.4-8.2); Troponin I High Sensitivity 7.3 pg/mL (4.0-51.3)
[2023-04-22 12:56] LABS: Influenza Virus A Antigen Negative; Influenza Virus B Antigen Negative; Internal Control Within Normal Limits; SARS-CoV-2 Ag NEGATIVE (NEGATIVE)
[2023-04-22] MEDS: 0.9 % SODIUM CHLORIDE 1,000 ML 999 ML IV (12:58)
[2023-04-22 13:03] LABS: pH VBG 7.437 (7.330-7.430)
[2023-04-22 13:04] LABS: PCO2 VBG 37.6 mmHg (40.0-52.0)
[2023-04-22 13:20] LABS: Lactate/Lactic Acid 1.6 mmol/L (0.4-2.0)
[2023-04-22] MEDS: LEVOFLOXACIN IN DEXTROSE 5 % 500 MG/100 ML PIGGYBACK 100 MG IV (13:54)
--- OUTSIDE RECORDS SUMMARY | 2023-04-22 14:26 | XMS_ITS | CCD ---
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 John Melgoza [facility] Unav ailable Jimmy, Dr. Tracey De La Cruz Attending Unavail able Lyster, Dr. Tracey De La Cruz Referring Unavail able Lyster, Dr. Tracey De La Cruz Attending Unavail able Lyster, Dr. Tracey De La Cruz Referring Unavail able Lentz, Dr. John Melgoza [facility] Unav ailable Delvin, Dr. Son Attending Unavailable Abhijeet, Dr. John Melgoza [facility] Palomav ailJohn Vick Unavailable Margy Olivas Unavailable Margy Olivas Attending Unavailable Margy Olivas Admitting Unavailable John Lentz Primary Care Unavailable John Lentz MD Primary Care Provider ADELAIDA HARGROVE Attending Unavailable JOHN LENTZ Primary Care Unavaila OMKAR Jorgensen Attending Unavailable Allergies Allergy Classification Reported Allergen(s) Allergy Type Date of Onset Reaction(s) Facility (8 sources) Bacitracin; Translations: [BACITRACIN] Drug Allergy 07-19-19 21 Unknown [facility] Repository (2 sources) Neomycin; Translations: [NEOMYCIN] Drug Allergy 07-19-19 21 [facility] Repository (3 sources) Vancomycin; Translations: [VANCOMYCIN] Drug Allergy 01-17-20 15 [facility] Repository (1 source) Polymyxin B Drug allergy (disorder) 07-19-19 21 [facility] Repository (20 sources) Vancomycin; Translations: [vancomycin] Drug Allergy 07-21-19 14 [facility] (15 sources) Aminoglycosides (Antibiotic) Propensity to adverse reactions Unknown [facility] Other (9 sources) Bacitracin Drug Allergy Unknown [facility] Other (15 sources) Neomycin Drug Allergy Unknown [facility] Other (15 sources) Polymyxin B Drug Allergy Unknown [facility] Other (8 sources) Contrast media Propensity to adverse reactions 07-21-19 14 Unknown [facility] Other (8 sources) Erythromycin Drug Allergy Unknown [facility] Other (8 sources) fluticasone / salmeterol Drug Allergy 09-11-19 16 Unknown [facility] Other (7 sources) influenza A virus (H1N1) antigen / influenza A virus (H3N2) antigen / influenza B virus antigen Drug Allergy Comment:Flu Injection [facility] Other (8 sources) traMADol Drug Allergy 10-17-19 15 Unknown [facility] Other (8 sources) Advair Diskus *ANTIASTHMATIC AND BRONCHODILATOR AG Propensity to adverse reactions Unknown [facility] Other (7 sources) patient allergy list reviewed by nurse or physicia Propensity to adverse reactions 09-22-19 18 Comment:Done [facility] Other (8 sources) Dyes Propensity to adverse reactions Comment:CT DYE [facility] Other (7 sources) Allergies Reconciled Propensity to adverse reactions Unknown [facility] Other (8 sources) TraMADol & Dietary Manage Prod *ANALGESICS - OPIOI Propensity to adverse reactions Unknown [facility] Other (8 sources) Vaccine product containing Influenza virus antigen (medicinal product) Drug allergy 03-03-20 17 Unknown [facility] Other (8 sources) Contraindication to Flu Injection Propensity to adverse reactions 08-18-19 18 Comment:advers e rxn/side effects [facility] Other (1 source) Aminoglycosides (Antibiotic) Drug allergy (disorder) 10-25-19 [facility] Repository (1 source) Vancomycin Drug Allergy 10-25-19 [facility] Repository (1 source) Flucelvax Quadrivalent Drug allergy Comment:Flu Injection [facility] Other (1 source) POLYMYXIN B SULFATE-HC; Translations: [POLYMYXIN B SULFATE-HC] Propensity to adverse reactions to drug (disorder) 08-29-19 [facility] Repository Medications Current Medications Medication Drug Class(es) Dates Sig (Normalized) Sig (Original) [id number] 200 actuat albuterol 0.09 mg/actuat metered dose [...] Active Start: 05-26-2021 take 1 capsule by [facility] twice daily DULoxetine HCl - 30 MG Oral Capsule Delayed Release Particles TAKE 1 CAPSULE TWICE DAILY. Quantity: 0 Refills: 0 Ordered: 26-May-2021 DO Start : 26-May-2021 Active take 1 capsule by [facility] every twenty-four hours Cymbalta 60 [...] Start: 06-01-2022 take 2 tablets by mo [facility] every twenty-four hours predniSONE 20 MG 2 [...] disease (20 sources) Atherosclerotic heart disease of [place] coronary artery without angina pectoris; Translations: [Coronary arteriosclerosis] Onset: 08-25-2018 03-01-2023 Chronic Coronary atherosclerosis and other heart disease (10 sources) Stented coronary artery; Translations: [Percutaneous transluminal coronary angioplasty status] Onset: 02-26-2023 03-01-2023 Episodic Coronary atherosclerosis and other heart disease (1 source) Coronary atherosclerosis and other heart disease; Translations: [Atherosclerosis of level[place] arteries of extremities with intermittent claudication, right [...] 07-20-2013 Chronic Other aftercare (1 source) 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; Translations: [OTH CARE HOME CURRENT DRUG THERAPY] Onset: 11-06-2020 Episodic Other aftercare (7 sources) Long-term current use of inhaled steroid; Translations: [MCC (current) use of inhaled steroids] Episodic Other aftercare (7 sources) Long-term current use of anticoagulant; Translations: [rodent 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 (current) use of anticoagulants] Episodic Other bone [...] Onset: 12-17-2016 Episodic Other aftercare (1 source) MCC (current) use of anticoagulants; Translations: [CARE HOME CURRNT USE ANTICOAGULANTS] Onset: 07-05-2020 Episodic Other [...] Range Facility Office Visiton 04-12-2023 Follow-up visit [id number] Sanchez Merritt 1945 F Date Provider Department Center 04/12/2023 Gayath[facility]OMKAR [facility] No family history on file Level of Service:21307 [place] OFFICE/OUTPATIENT ESTABLISHED MOD MDM 30 MIN Normal [facility] US UNI ankle/arm indiceson 0 12-17-2022 US UNI ankle/arm indices [facility] [address] [address] Ultrasound Report Signed Patient: Sanchez Merritt MR#: [id number] : 1945 Acct:[id number] Age/Sex: 77 / F ADM Date: 11/17/22 Loc: [facility] Room: Type: [facility] Attending Dr: Margy Olivas LITIGATION CLAIM REPRESENTATIVE-C Ordering Provider: Margy Olivas APRN Date of [...] Lauro Heard MD12/17/2022 2:11 PM Dictation Location: [id number] Tech: Julia Bautista Transcribed By: BILLIE 12/17/22 1411 Dictated By: Lauro Heard MD 12/17/22 1410 Signed By: 12/17/22 1411 [facility] LAB Carotid Artery Dupl ex Ultrasounon 04-13-2022 [facility] LAB Carotid Artery Duplex Ultrasoun [address], [address] [place] [address] Vascular Lab Report Carotid Artery Duplex Ultrasound Patient Name: SANCHEZ Melara Physician: [id number] Ludwig South MD, [facility] Study Date: 04/13/2022 Referring ADELAIDA HARGROVE Physician: MRN/PID: [id number] PCP: John Lentz Accession/Order#: [id number] CC Report to: Cooper Catalina Date of : 1945 Technologist: Jillian Gonzalez [facility] Gender: F Technologist 2: Admission Status: Outpatient Location Performed: [facility] Diagnosis/ICD: R09.89-Other specified symptoms and signs involving the circulatory and respiratory systems Indication: CAD, Right CEA, Peripheral Vascular Disease, 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, HTN, Hyperlipidemia, Former Smoker, Ischemic Cardiomyopathy, COPD, PTCA-07/2018 Procedure/CPT: 09885 Cerebrovascular Carotid Duplex scan complete-[id number] CONCLUSIONS: Right Carotid: Findings are consistent with [...] cm/s Right Left ICA/CCA Ratio 0.5 0.8 [id number] Ludwig South MD, FACC Final Normal [facility] VASC LAB Carotid Artery Dupl ex Ultrasoundon 04-13-2022 US.doppler Carotid arteries [facility] 250 DO Work Phone: Height or Weight NOT Doneon 02-26-2022 Fall risk assessment a) No falls within the last year [facility] 250 DO Work Phone: Tobacco use status CPHS b) No [facility] 250 DO Work Phone: Office Visit [...] (more content not included)... Normal [facility] CARDIAC STRESS/REST INJE CTIONon 08-19-2021 [facility] CARDIAC STRESS/REST INJECTION Patient Name: SANCHEZ MERRITT STUDY: MYOCARDIAL PERFUSION STRESS TEST WITH LEXISCAN Performing facility: [facility], [address] [place] [address], [address], [place] [address] [facility] Provider: Tracey Pitt DO, FACC PCP: Dr. Young Lentz Supervising provider: Ludwig South MD, FACC INDICATION: CAD; ICM SOB; HISTORY: Gender: F; Age: 76 y/o ; Height: 160.02 cm; Weight: 58.700293 kg. High Cholesterol; CAD; SOB; COPD; Quit smoking 12 years ago. Cardiac catheterization on 2018. PTCA on 2018. COMPARISON: No comparison. ACCESSION NUMBER(S): [id number]; [id number]; [id number] ORDERING CLINICIAN: TRACEY PITT TECHNIQUE: ONE DAY [...] Electronically signed by: GHULAM RIVERA MD Normal [facility] No Panel Informationon 08-19 [facility] 250 DO Work Phone: Office Visit [...] Screen Positive; Status:Complete - Retrospective Authorization; Done: [id number] SocHx: Former smoker Tobacco Use Screening; Status:Complete; Done: [id number] Patient Instructions Please bring all medicines, vitamins, [...] of Percutaneous transluminal coronary angioplasty History of [employer]EVER[employer] carotid History of [employer] femoral-popliteal History of Tonsillectomy with adenoidectomy Past [...] HPI. Respiratory: (more content not included)... Normal [facility] Tobacco Screening.on 022 Adult depression screening assessment Yes [facility] 250 DO Work Phone: Fall risk assessment a) No falls within the last year [facility] 250 DO Work Phone: Tobacco use status [facility] b) No [facility] 250 DO Work Phone: Tobacco Screening. 2-More than half the days [facility] 250 DO Work Phone: Tobacco Screening. 1-Several days [facility] 250 DO Work Phone: Tobacco Screening. 0-Not at all [facility] 250 DO Work Phone: Tobacco Screening. 3-Nearly every day [facility] 250 DO Work Phone: Tobacco Screening. Somewhat Difficult [facility] Marta Arango DO Work Phone: CNOVon 05-23-2021 CNOV Office Visit (PAINCC ) SANCHEZ MERRITT ([id number]) 1945 F Date Time Provider Department 05/23/21 [...] interventional pain procedures: Seen pain management in [facility] Did an injection with no relief Dr [...] radicular pain. (more content not included)... Normal [facility] SANCHEZ MERRITT ([id number]) 1945 F Date Time Provider Department 05/23/21 [...] be called to [facility] [place]. States it was discussed at last OV. Please advise. Cleopatra King LPN 05/28/2021 11:50 AM Signed Called the patient and advised that normally Lien Hughes LPN 05/28/2021 12:02 PM Signed Tens unit was sent to [facility]. Cleopatra King LPN 05/28/2021 1:25 PM Signed Patient was notified that order was sent to [facility] and they would contact her. Allergies As [...] Encounter Status:Closed by CLEOPATRA KING on 05/28/21 [facility] Covid-19 PCR (CVDTBH)on SARS-CoV-2 (COVID-19) RNA MEENAKSHI+probe Ql (Unsp spec) Not detected Normal NOT DETECTED [facility] Comment on above: Result Comment: This test is not yet approved or cleared by the [place] FDA. When there are no FDA-approved or cleared tests available, and other criteria are met, FDA can make tests available under an emergency access mechanism called an Emergency Use Authorization (EUA). The EUA for this test is supported by the President And Chief Executive Officer of Health and Human Service's (HHS's) declaration [...] consistent with SARS-CoV-2. Performed By: #### C [facility] ####[facility] [id number] [place] [id number] Aggie XR LSPINE W_OBLS AND FLEX_EX Ton [...] LORENA LATIF Date: 2020-07-02 15:09 Normal [facility] CT CHEST HI RESOLUTIONon CT CHEST HI [...] by: JOSIE PARIS Date: 2020-06-18 14:59 Normal [facility] XR CHEST 2 Von 02-29-2020 XR CHEST [...] by: JOSIE PARIS Date: 2020-02-29 09:04 Normal [facility] Vital Signs Date Time Vital Sign Value Performing Clinician Facility 03-01-2023 14:00-0500 Diastolic blood pressure 68 mm[Hg] Adleaida Hargrove MD Work Phone: [facility] 03-01-2023 14:00-0500 Heart rate 68 /min Adelaida Hargrove MD Work Phone: [facility] 03-01-2023 14:00-0500 Systolic blood pressure 110 mm[Hg] Adelaida Hargrove MD Work Phone: [facility] 10-20-2022 13:15-0400 Body height 156.21 cm Margy Olivas Other [facility] Other 10-20-2022 13:15-0400 Body mass index (BMI) [Ratio] 24.16 kg/m2 Margy Olivas Other [facility] Other 10-20-2022 13:15-0400 Body temperature 96.9 [degF] Margy Olivas Other [facility] Other 10-20-2022 13:15-0400 Body weight 58.97 kg Margy Olivas Other [facility] Other 10-20-2022 13:15-0400 Diastolic blood pressure 60 mm[Hg] Margy Olivas Other [facility] Other 10-20-2022 13:15-0400 SaO2% (BldA) [Mass fraction] 93 % Margy Olivas Other [facility] Other 10-20-2022 13:15-0400 Systolic blood pressure 110 mm[Hg] Margy Carpenterprateekmaral Other [facility] Other 09-22-2022 10:00-0400 Body height 156.21 cm John Lentz Other [facility] Other 09-22-2022 10:00-0400 Body mass index (BMI) [Ratio] 24.16 kg/m2 John Lentz Other [facility] Other 05-30-2023 10:00-0400 Body weight 58.97 kg John Lentz Other [facility] Other 09-22-2022 10:00-0400 Diastolic blood pressure 68 mm[Hg] John Lentz Other [facility] Other 09-22-2022 10:00-0400 Systolic blood pressure 117 mm[Hg] John Lentz Other [facility] Other 06-01-2022 11:15-0500 Body height 156.21 cm John Lentz Other [facility] Other 06-01-2022 11:15-0500 Body mass index (BMI) [Ratio] 24.16 kg/m2 John Lentz Other [facility] Other 06-01-2022 11:15-0500 Body weight 58.97 kg John Lentz Other [facility] Other 06-01-2022 11:15-0500 Diastolic blood pressure 60 mm[Hg] John Lentz Other [facility] Other 06-01-2022 11:15-0500 SaO2% (BldA) [Mass fraction] 92 % John Lentz Other [facility] Other 06-01-2022 11:15-0500 Systolic blood pressure 102 mm[Hg] John Lentz Other [facility] Other 02-26-2022 15:00-0400 Body height 160.02 cm John Lentz Work Phone: [facility] 250 DO Work Phone: 02-26-2022 15:00-0400 Body mass index (BMI) [Ratio] Medical Reason Not Done John Lentz Work Phone: [facility] 250 DO Work Phone: 02-26-2022 15:00-0400 Diastolic blood pressure 60 mm[Hg] John Lentz Work Phone: [facility] 250 DO Work Phone: 02-26-2022 15:00-0400 Heart rate 80 /min John Lentz Work Phone: [facility] 250 DO Work Phone: 02-26-2022 15:00-0400 Systolic blood pressure 122 mm[Hg] John Lentz Work Phone: [facility] 250 DO Work Phone: 08-19-2021 12:00-0400 72 1 John Lentz Work Phone: [facility] 250 DO Work Phone: Comment on above: [id number] 08-07-2021 14:55-0400 Body height 160.02 cm John Lentz Work Phone: [facility] 250 DO Work Phone: 08-07-2021 14:55-0400 Diastolic blood pressure 68 mm[Hg] John Lentz Work Phone: [facility] 250 DO Work Phone: 08-07-2021 14:55-0400 Heart rate 89 /min John Lentz Work Phone: [facility] 250 DO Work Phone: 08-07-2021 14:55-0400 Systolic blood pressure 114 mm[Hg] John Lentz Work Phone: [facility] 250 DO Work Phone: 08-07-2021 14:55-0400 10 1 John Lentz Work Phone: [facility] Arango DO Work Phone: Comment on above: PHQ-9 TS Encounters Encounter Date Encounter Type Care Provider Facility Start: 04-14-2023 End: 04-14-2023 ambulatory John Lentz Other [facility] Other Start: 04-14-2023 Telephone encounter John Lentz [facility] Start: 04-12-2023 End: 04-12-2023 ambulatory [facility] Start: 04-02-2023 End: 04-02-2023 ambulatory John Lentz Other [facility] Other Start: 04-02-2023 Telephone encounter John Lentz [facility] Start: 03-23-2023 (Televisit) Televisit John Uribe [facility] Start: 03-23-2023 End: 03-23-2023 ambulatory John Lentz Other [facility] Other Start: 03-22-2023 End: 03-22-2023 ambulatory John Lentz Other [facility] Other Start: 03-22-2023 Telephone encounter John Lentz [facility] Start: 03-01-2023 End: 03-01-2023 ambulatory [facility] Start: 03-01-2023 End: 03-01-2023 Office outpatient visit 25 minutes Adelaida Hargrove MD Work Phone: [facility] Comment on above: Arteriosclerosis of coronary artery (Primary Dx); Bilateral carotid bruits; Hyperlipidemia, unspecified hyperlipidemia type; Ischemic cardiomyopathy; Primary hypertension; Stented coronary artery; Chronic obstructive pulmonary disease, unspecified COPD type (CMS/HCC); Wheelchair dependent; Amputation of leg (CMS/HCC); History of right-sided carotid endarterectomy Start: 01-27-2023 End: 01-27-2023 ambulatory John Abhijeet Other [facility] Other Start: 01-27-2023 Telephone encounter John Abhijeet [facility] Start: 01-25-2023 End: 01-25-2023 ambulatory John Lentz Other [facility] Other Start: 01-25-2023 Telephone encounter John Abhijeet [facility] Start: 01-08-2023 End: 01-08-2023 ambulatory John Abhijeet Other [facility] Other Start: 01-08-2023 Telephone encounter John Abhijeet [facility] Start: 12-02-2022 End: 12-02-2022 ambulatory John Lentz Other [facility] Other Start: 12-02-2022 Telephone encounter John Abhijeet [facility] Start: 11-17-2022 End: 11-17-2022 ambulatory Margy Olivas Facility:[facility] Start: 10-20-2022 End: 10-20-2022 ambulatory Margy Olivas Other [facility] Other Start: 10-20-2022 FQ visit new patient Margy Duarte o [facility] Start: 09-23-2022 End: 09-23-2022 ambulatory John Lentz Other [facility] Other Start: 09-23-2022 Telephone encounter John Abhijeet [facility] Start: 09-22-2022 End: 09-22-2022 ambulatory John Lentz Other [facility] Other Start: 09-22-2022 Office outpatient vi sit 25 minutes John Lentz [facility] Start: 09-22-2022 [address] Lent[address] [facility] Start: 08-13-2022 Rx Renewal John Lentz Work Phone: [facility] 250 DO Work Phone: Start: 07-15-2022 End: 07-15-2022 ambulatory John Lentz Other [facility] Other Start: 07-15-2022 Telephone encounter John Lentz [facility] Start: 06-01-2022 End: 06-01-2022 ambulatory John Lentz Other [facility] Other Start: 06-01-2022 Office outpatient vi sit 25 minutes John Lentz [facility] Start: 05-05-2022 End: 05-05-2022 ambulatory John Lentz Other [facility] Other Start: 05-05-2022 Telephone encounter John Lentz [facility] Start: 04-17-2022 Chart Update John Lentz Work Phone: [facility] 250 DO Work Phone: Start: 04-13-[address] Adelaida Griggs ty:[id number] Start: 02-26-2022 Office outpatient vi sit 25 minutes John Lentz Work Phone: [facility] 250 DO Work Phone: Start: 02-26-[address] Adelaida Griggs ty:[id number] Start: 12-12-2021 Pre-procedure evalua tion check John Lentz Other [facility] Other Start: 09-11-2021 Rx Renewal John Lentz Work Phone: [facility] 250 DO Work Phone: Start: 09-08-2021 Rx Renewal John Lentz Work Phone: [facility] 250 DO Work Phone: Start: 05-09-2022 Chart Update John Lentz Work Phone: [facility] 250 DO Work Phone: Start: 08-19-[address] Tracey Pitt Facility:[id number] Start: 08-07-2021 Office outpatient vi sit 25 minutes John Lentz Work Phone: [facility] 250 DO Work Phone: Start: 08-07-[address] John Lentz Facility: Start: 07-21-2021 Rx Renewal John Lentz Work Phone: [facility] 250 DO Work Phone: Start: 01-14-[address] [facility] Start: 12-09-2020 End: 12-10-[address] JOHN LENTZ Facility:[facility]1 Start: 11-28-2020 End: 11-28-[address] JOHN LENTZ Facility:[facility]1 Start: 10-29-2020 End: 10-30-[address] DORA BELLA Facility:[facility]1 Start: 10-24-2020 End: 10-24-[address] JOHN LENTZ Facility:[facility]1 Start: 10-15-2020 End: 10-16-[address] DORA BELLA Facility:[facility]1 Start: 10-04-2020 Encounter for preprocedural laboratory examination DR DORA BELLA [facility] Start: 10-01-2020 End: 10-01-[address] DORA [...] DTaP/Tdap/Td Vaccines (2 - Td or Tdap) [facility] Start: 11-08-2023 End: 11-08-2023 Patient encounter procedure 11/08/2023 1:15 PM EDT Office Visit [facility] [address] [facility] [address] [place] [address] Adelaida Hargrove MD [address] [place] [address] [address] [place] [address] [facility] Start: 03-01-2023 FUV, Provider: Adelaida Hargrove, Status: Pen, Time: 2:00 PM FUV, Provider: Adelaida Hargrove, Status: Pen, Time: 2:00 PM [facility] 250 DO Work Phone: Start: 03-01-2023 End: 03-01-2024 Comprehensive metabolic 2000 panel - Serum or Plasma Comprehensive Metabolic Panel Lab Routine Arteriosclerosis of coronary artery Primary hypertension Stented coronary artery Expected: 03/01/2023 (Approximate), Expires: 03/01/2024 [facility] Service Area Work Phone: Comment on above: Expected: 03/01/2023 (Approximate), Expires: 03/01/2024 Start: 03-01-2023 End: 03-01-2024 Lipid 1996 panel - Serum or Plasma Lipid Panel Lab Routine Hyperlipidemia, unspecified hyperlipidemia type Expected: 03/01/2023 (Approximate), Expires: 03/01/2024 [facility] Work Phone: Comment on above: Expected: 03/01/2023 (Approximate), Expires: 03/01/2024 Start: 12-25-2022 Influenza vaccination Influenza Vacc ine (#1) [facility] Start: 04-13-2022 CAROTID, Provider: [facility] 01,[id number], Status: Pen, Time: 10:45 AM CAROTID, Provider: [facility] 01,[id number], Status: Pen, Time: 10:45 AM [facility] Work Phone: Start: 04-13-2022 ECHO, Provider: [facility] 01,[id number], Status: Pen, Time: 10:45 AM ECHO, Provider: [facility] 01,[id number], Status: Pen, Time: 10:45 AM [facility] 250 DO Work Phone: Start: 01-29-2022 FUV, Provider: Adelaida Hargrove, Status: Pen, Time: 1:00 PM FUV, Provider: Adelaida Hargrove, Status: Pen, Time: 1:00 PM [facility] 250 DO Work Phone: Start: 08-19-2021 STRESS NUC, Provider : BINH THOMASI NUCLEAR 01,[id number], Status: Pen, Time: 12:00 PM STRESS NUC, Provider: BINH HHVI NUCLEAR 01,[id number], Status: Pen, Time: 12:00 PM [facility] 250 DO Work Phone: Start: 08-07-2021 FUV, Provider: Tracey Pitt, Status: Pen, Time: 2:45 PM FUV, Provider: Tracey Pitt, Status: Pen, Time: 2:45 PM [facility] 250 DO Work Phone: Start: 06-08-2021 COVID-19 Vaccine (4 - Moderna series) COVID-19 Vaccine (4 - Moderna series) [facility] Start: 11-24-2018 Pneumococcal Vaccine : 65+ Years (2 - PPSV23 or PCV20) Pneumococcal Vaccine: 65+ Years (2 - PPSV23 or PCV20) [facility] Start: 1993 Zoster Vaccines (1 o f 2) Zoster Vaccines (1 of 2) [facility] Start: 1961 Diabetes mellitus screening Diabetes Screening [facility] Start: 1961 Hepatitis C screening Hepatitis C [facility] Start: 1943 Lipid panel Lipid Panel [facility] Start: 1945 Medicare Annual Wellness Visit Medicare Annual Wellness Visit (AWV) [facility] Start: 1945 Screening for osteoporosis Bone Density Scan [facility] Immunizations Immunization Date Immunization Notes Care Provider Fa sendy 04-13-2021 Pfizer-BioNTech COVID-19 Vacc 30 MCG/0.3ML Intramuscular Suspension John Lentz Work Phone: [facility] 250 DO Work Phone: 07-02-2020 Moderna COVID-19 Vaccine 100 MCG/0.5ML Intramuscular Suspension John Lentz Work Phone: [facility] 250 DO Work Phone: 06-03-2020 Moderna COVID-19 Vaccine 100 MCG/0.5ML Intramuscular Suspension John Lentz Work Phone: [place] [address] DO Work Phone: 09-29-2018 pneumococcal conjuga te vaccine, 13 valent John Lentz Work Phone: [place] [address] DO Work Phone: 08-16-2018 tetanus toxoid, redu luis diphtheria toxoid, and acellular pertussis vaccine, adsorbed Adelaida Hargrove MD Work Phone: [facility] Work Phone: 02-16-2017 influenza virus vaccine, split virus (incl. purified surface antigen) John Lentz Other [facility] [employer] Other 02-16-2017 influenza, high dose seasonal, preservative-free John Lentz Work Phone: [place] [address] DO Work Phone: 02-16-2017 influenza virus vaccine, unspecified formulation Adelaida Hargrove MD Work Phone: [facility] Work Phone: 01-24-2017 influenza virus vaccine, unspecified formulation John Lentz Work Phone: [facility] [employer] DO Work Phone: 01-25-2016 influenza virus vaccine, split virus (incl. purified surface antigen) John Lentz Other [facility] [employer] Other 01-25-2016 influenza, high dose seasonal, preservative-free John Lentz Work Phone: [facility] [employer] DO Work Phone: 03-02-2015 influenza, injectabl e, quadrivalent, preservative free John Lentz Work Phone: [facility] 250 DO Work Phone: 03-02-2015 tetanus and diphther ia toxoids, adsorbed, preservative free, for adult use (5 Lf of tetanus toxoid and 2 Lf of diphtheria toxoid) John Lentz Other [facility] [employer] Other 02-12-2009 pneumococcal conjuga te vaccine, 7 valent Johnabimael Lentz Work Phone: [facility] 250 DO Work Phone: 01-30-2009 influenza virus vaccine, whole virus John Kevin Lentz Work Phone: [facility] 250 DO Work Phone: Payers Date Payer Category Payer Unknown [id number] 2016 Unknown 2016 Unknown [id number] 2008 Medicare MEDICARE MEDICAR E PART A AND B [id number] 2008-Present [address] [place] [address] [id number] 1959 Medicare [id number] 1959 Self-pay 1959 Unknown [id number] 1943 Unknown [id number] 2.16.840.1.777439.3.579.2.593 1943 Unknown [id number] 2.16.840.1.136968.3.579.2.593 1943 Unknown [id number] 2.16.840.1.925887.3.579.2.593 1943 Unknown [id number] 2.16.840.1.185103.3.579.2.593 1943 Unknown [id number] 2.16.840.1.823901.3.579.2.593 1943 Unknown [id number] 2.16.840.1.253680.3.579.2.593 1943 Unknown [id number] 2.16.840.1.622436.3.579.2.593 1943 Unknown [id number] 2.16.840.1.128898.3.579.2.593 1943 Unknown [id number] 2.16.840.1.422974.3.579.2.593 1943 Unknown [id number] 2.16.840.1.221213.3.579.2.593 1943 Unknown [id number] 2.16.840.1.396025.3.579.2.593 1943 Unknown [id number] 2.16.840.1.416494.3.579.2.593 1943 Unknown [id number] 2.16.840.1.180090.3.579.2.593 1943 Unknown [id number] 2.16.840.1.812445.3.579.2.593 1943 Unknown [id number] 2.16.840.1.184557.3.579.2.356 1943 Unknown [id number] 2.16.840.1.319441.3.579.2.356 1943 Unknown [id number] 2.16.840.1.278010.3.579.2.1068 1943 Unknown [id number] 2.16.840.1.974791.3.579.2.1068 1943 Unknown [id number] 2.16.840.1.238308.3.579.2.1244 Unknown [id number] 2.16.840.1.853284.3.579.2.593 Unknown [id number] 2.16.840.1.649114.3.579.2.593 Unknown [id number] 2.16.840.1.835907.3.579.2.531 Social History Date Type Detail Facility Start: 08-07-2021 End: 03-01-2023 Daily caffeine consumption, 2-3 servings a day Daily caffeine consumption, 2-3 servings a day [facility] Comment on above: Quit cigs 2009; 1 cup of coffee harshil y; Start: 08-07-2021 End: 03-01-2023 Sex Assigned At [facility] Start: 03-01-2023 Tobacco smoking stat us NHIS Ex-smoker [facility] End: 04-26-2009 History of tobacco use Current smoker [facility] Work Phone: End: 04-26-2009 History of tobacco use Cigarette Smoker [facility] Work Phone: Start: 03-01-2023 Tobacco use and exposure Smokeless tobacco non-user [facility] Work Phone: Start: 03-01-2023 Alcohol intake Lifetime non-d annemarie (finding) [facility] Work Phone: Start: 1945 [facility] Work Phone: Start: 02-19-2023 End: 03-01-2023 Exposure to SARS-CoV-2 (event) Not sure [facility] Functional Status Date Assessment Result Facility 08-07-2021 PHQ-9 [id number] Moderate (10-14) -[facility] 250 DO Work Phone: Clinical Notes 07-25-2018 to 04-14-2023 Note Date & Type Note Facility 04-14-2023 Evaluation note Encounter Date Diagnosis Assessment Notes Mar, Confusion (ICD-10 - R41.0) [facility] Other [id number] [facility] Note-stable, concerns for hypotension given first BP in office had [facility] Note-recovered EF per recent echo 03/2023 EF 55-60% -NYHA unable to asses given wheel chair bound and left AKA< she does state she is able to do basic ADLs -GDMT: stop lisionpril given hypotension, stop coreg, Will start toprol xl 25mg daily and do event monitor to watch for RVR -prioritizing rate control at this time -continue aldactone 25mg, start toprol xl [facility]mgUnMer[facility]12-18-2023 Note-s/p [facility] Note-noted in hx, [facility] 04-12-2023 Note-s/p stent to RCA and ostial left main in 2019 -will increase to high intensity statin 40mg lipitor given she is done drinking -stop ASA and start eliquis 2.5mg BID for AF, ct plavix -noted to not be a good candidate for CABG given resp diseaseUnMercy Hospital12-18-2023 Note- stable, she is on supplemental O2 as needed - she may not be a great candidate for [facility]-2023 NoteNew patient here to establish care. She was recently discharged from [facility] for new onset afib. AC was not started. She has a right carotid stent that was placed years ago at [facility]. She does not still follow with vascular surgeon. She is transferring cardiology care from [facility] to [place]. Review of Systems Cardiovascular: Positive for dyspnea on exertion and leg swelling (RLE). Respiratory: Positive for cough and shortness of breath. All other systems reviewed and are negative.[facility] 04-12-2023 NoteUT Electrophysiology Consult Note [...] follow-up with cardiology and is switching to [facility] She was admitted to [facility] with new onset A-fib, alcohol withdrawal which was treated with benzodiazepines, sepsis, respiratory failure, COPD exacerbation all likely due to COVID infection, she was discharged 04/01/2023. She is here for hospital follow-up for A-fib and changing staff respiratory therapist She states she has stopped drinking since [...] feeling safe in r (more content not included)...[facility]11-28-2023 Evaluation note* Encounter Date Diagnosis [...] such as patterns or other associated symptoms [facility] Other 11-27-2023 Evaluation note* Encounter Date Diagnosis Assessment Notes Treatment Notes Treatment Clinical Notes Feb, Chronic pain (ICD-10 - G89.29) [facility] Other 11-06-2023 History of Present illness Narrative* [...] List Diagnosis Date Noted Amputation of leg ([facility] 03/01/2023 History of right-sided carotid endarterectomy 03/01/2023 [...] vertebral flow Problems addressed today included atherosclerotic levelock vessel coronary artery disease, hyperlipidemia, cerebrovascular disease, [...] MONTHS Adelaida Hargrove MD documented in this [facility] Work Phone: 1(788) 425-593311-06-2023 Instructions* Patient Instructions* Tran Morales LPN - [...] time of your visit. [facility] Work Phone: 1(145) 526-816306-27-2023 Evaluation note* Encounter Date Diagnosis Assessment Notes [...] discussion, agrees with plan, denies any questions. [facility] Other 05-30-2023 Evaluation note* Encounter Date Diagnosis Assessment Notes Treatment Notes Treatment Clinical Notes August, Acute bacterial conjunctivitis of both eyes (ICD-10 - H10.33) [place] [facility] is contagious. Wash hands frequently and [...] - G89.29) Reviewed OARRS report. Refilled rx. [facility] Other 05-30-2023 Evaluation note* Encounter Date Diagnosis Assessment Notes Treatment Notes Treatment Clinical Notes August, Chronic pain (ICD-10 - G89.29) [facility] Other 02-06-2023 Evaluation note* Encounter Date Diagnosis [...] Continue to cover and monitor area. Vaccuum creel cleaner fell on her leg and it is tender. May, Lumbar degenerative disc disease (ICD-10 - M51.36) chronic pain due to lumbar issues and BKA amputation. will call when pain med refill is needed. [facility] Other 04-14-2022 History of Present illness Narrative* [...] Ejection fraction is typically been estimated at abppsi85%. She indicates that her breathing has progressively worsened again. She does not believe there is been really any change to her pulmonary status. [facility] DO Work Phone: 1(323) 469-442904-14-2022 History of Present illness Narrative* Previously seen [...] Ejection fraction is typically been estimated at ihuftw68%. She indicates that her breathing has progressively [...] profile lipid profile prior to next visit. -[facility] DO Work Phone: 1(139) 415-198004-14-2022 History of Present illness Narrative* Previously seen [...] Ejection fraction is typically been estimated at jjwima62%. She indicates that her breathing has progressively [...] profile lipid profile prior to next visit. [facility] Work Phone: 1(366) 179-244401-28-2022 NoteHNO ID: [id number] Author: Chavez Dillard MD Service: ? Author [...] interventional pain procedures: Seen pain management in [facility] Did an injection with no relief Dr [...] reproduction bilaterally. Extremities: Peripheral (more content not included)...[facility] 12-09-2020 NotePROCEDURE: MRI THIGH LT WO CON [...] Electronically authenticated by: JOSIE PARIS Date: 2020-12-09 16:49[facility]08-05-2021 NoteHISTORY AND PHYSICAL EXAMINATION HISTORY: This patient [...] be doing so in the near future. [facility] Signed and Approved by: ROXI MCCLENDON 11/28/2020 09:43:00[facility]08-05-2021 NoteOPERATIVE NOTE OPERATION DATE: 11-28-20 ANESTHETIC: Topical. [...] followup the following day for postoperative care. [facility] Signed and Approved by: ROXI MCCLENDON 12/26/2020 11:09:00[facility]07-06-2021 NotePAIN MANAGEMENT Consultation Date: 10-29-20 CHIEF COMPLAINT: [...] and Approved by: DR DORA BELLA 11/05/2020 12:13:00[facility]07-01-2021 NoteHISTORY AND PHYSICAL EXAMINATION HISTORY: The patient [...] and go forward with her elective procedure. [facility] Signed and Approved by: ROXI MCCLENDON 10/24/2020 11:46:00[facility]07-01-2021 NoteOPERATIVE NOTE OPERATION DATE: 10-24-20 ANESTHETIC: Topical. [...] followup the following day for postoperative care. [facility] Signed and Approved by: ROXI MCCLENDON 11/27/2020 16:58:00[facility]06-22-2021 NotePAIN MANAGEMENT Consultation Date: 10-15-20 CHIEF COMPLAINT: Left lyseh-gom-chii amputation stump pain. HISTORY OF PRESENT ILLNESS: [...] 2. Lumbar spondylosis. 3. Status post left nnrzb-bms-jijb amputation 2018. 4. Stump pain. 5. Neuromatous [...] daughter understand and would like to proceed. [facility] Signed and Approved by: DR DORA BELLA 10/29/2020 10:44:00[facility]06-22-2021 NotePAIN MANAGEMENT PROCEDURE NOTE Date: 10-15-20 PRE AND POST PROCEDURE DIAGNOSIS: Neuromatous stump pain, neuromatous pain status post left bwuoy-ymw-elpa amputation. PROCEDURE NAME:Neuroma stump injection. PROCEDURE: Subsequent [...] pain symptomatology that would have been present. [facility] Signed and Approved by: DR DORA BELLA 10/29/2020 10:44:00[facility]04-26-2021 NotePAIN MANAGEMENT Consultation Date: 08-19-20 HISTORY OF [...] baclofen. Of note, the patient is on residential anticoagulant medication, Plavix. On July 30 the [...] her pain. Dictated by Hemant Red APRN [facility] Signed and Approved by: HEMANT RED 08/26/2020 16:35:00[facility]03-08-2021 NoteCONSULTATION Consultation Date: 07/01/2020 PAIN MANAGEMENT CONSULTATION HISTORY OF PRESENT ILLNESS: This is a very pleasant 75-year-old female patient who comes to the [facility] for the very first time. [...] patient had stents July of 2018 at [facility]. Originally the patient was placed on Plavix [address] Arnold; however, Dr. Pitt in [place] took over the Plavix medication. The patient [...] the lumbar x-ray is without any deformities. [facility] Signed and Approved by: HEMANT RED 07/08/2020 17:02:00[facility]03-08-2021 NoteCONSULTATION Procedure Date: 07/01/2020 PROCEDURE NOTE: PREOPERATVE [...] signs were obtained and were stable. . [facility] Signed and Approved by: HEMANT RED 07/08/2020 17:03:00[facility]04-01-2019 History of Present illness Narrative* Mrs. Merritt [...] Ejection fraction is typically been estimated at qqfuci74%. She indicates that her breathing has progressively [...] is completed. No change made to medications. -[facility] [employer] DO Work Phone: Evaluation noteNo InformationNort mygall Other Evaluation note* Diagnosis Arteriosclerosis of coronary [...] right-sided carotid endarterectomy documented in this encounter [facility] Work Phone: History general Narrative - [...] Hospitalization History Suicide Hospitalization History See above [facility] Other History general Narrative - Reported* Type [...] Hospitalization History Suicide Hospitalization History See above [facility] Other Reason for referral (narrative)* Consultation (Routine) - Authorized Specialty Diagnoses / Procedures Referred By Sherry chicas Referred To Contact Cardiology Diagnoses Arteriosclerosis of coronary artery Procedures Follow Up In Cardiology Adelaida Hargrove MD [address] [facility] [address] [place] [address] Adelaida Hargrove MD [address] [place] [address] [address] [place] [address] Referral ID Status Reason Start Date Expiration Date V isits Requested Visits Authorized [id number] Authorized 03/01/2023 02/29/2024 1 1 [facility] Work Phone: Summary Purpose Family History [...] (peripheral yuli ry disease) (I73.9) Referral Organization [facility] Referring Provider First Name John Referring Provider Last Name Abhijeet Referring Provider Specialty Family [facility] Referred Organization [facility] Referred Provider Jaspreet Ventura Referred Address [address] [place] [id number] Referred Provider Specialty Vascular April christianne Referral Priority Routine General Notes Dai Aaron 01:06:20 PM >received today, faxed P2P Additional Source Comments INFORMATION SOURCE (unrecogn ized section and content) DATE CREATED AUTHOR 01/02/2021 [facility] DATE CREATED AUTHOR AUTHOR'S ORGANIZ ATION 07/18/2021 [facility] DATE CREATED AUTHOR AUTHOR'S ORGANIZ ATION 02/27/2022 [facility] DATE CREATED AUTHOR AUTHOR'S ORGANIZ ATION 02/27/2022 [facility] DATE CREATED AUTHOR AUTHOR'S ORGANIZ ATION 04/17/2022 [facility] DATE CREATED AUTHOR AUTHOR'S ORGANIZ ATION 12/18/2022 [facility] DATE CREATED AUTHOR AUTHOR'S ORGANIZ ATION 03/02/2023 [facility] DATE CREATED AUTHOR AUTHOR'S ORGANIZ ATION 04/13/2023 [facility] REASON FOR VISIT (unrecogniz ed section and content) OV or UA? Reason Comments Follow-up 1 year Care Teams (unrecognized sec tion and content) [employer] Salesperson Relationship Specialty Start Date End Date John Lentz MD [address] [place] [address] PCP - General 11/03/18 FOR RECORDS PERTAINING [...] BE BASED ON THE PRIMARY CLINICAL RECORDS. [employer] provides no warranty or guarantee of the accuracy or completeness of information in this document.
--- NOTE | 2023-04-22 14:58 | CT_ITS ---
The [address] [address] Patient Name: SANCHEZ SAMSON MRN: [id number] date: 1945 Sex: F Assigned Patient Location: [place] Current Patient Location: [place] Accession/Order Number: [id number] Exam Date: 04/22/2023 15:40 Report Date: 04/22/2023 18:44 At the request of: SHAIKH VINNIE Procedure: CT chest wo con EXAM: CT scan of the chest without contrast. Dose reduction technique used: Automated exposure control and/or adjustment of the mA and/or kV according to patient size and/or use of iterative reconstruction technique. REASON FOR EXAM: Pneumonia COMPARISON: CT scan dated 06/18/2020 FINDINGS: Large amount of right upper lobe consolidation. 3.1 x 2.2 cm spiculated masslike opacity in the upper segment of the right lower lobe. Small to moderate-sized right pleural effusion. Small amount of scarring in the left upper lobe. No pneumothorax. No acute fractures. Coronary atherosclerotic calcifications. Centrilobular emphysema in both lungs. Bilateral breast implants with bilateral ruptured implants. Spinal cord stimulator. Remainder unremarkable. CT/CT chest wo con IMPRESSION: 1. Right upper lobe pneumonia. 2. Spiculated masslike opacity in the right lower lobe may also represent pneumonia however malignancy is also a consideration. Recommend follow-up chest CT in 2-3 months after treatment. 3. Small to moderate-sized right pleural effusion. 4. Emphysema. Electronically authenticated by: CAPO CALHOUN Date: 04/22/2023 18:44
[2023-04-22] MEDS: VANCOMYCIN HCL 1,000 MG in 0.9 % SODIUM CHLORIDE 250 ML 250 MG IV (16:10)
[2023-04-22] MEDS: LACTATED RINGER'S SOLUTION 1,000 ML 100 ML IV (17:46)
[2023-04-22] MEDS: MORPHINE SULFATE 2 MG/ML SYRINGE IV ×2 (18:38→21:46)
[2023-04-22] MEDS: LEVOFLOXACIN IN DEXTROSE 5 % 250 MG/50 ML PIGGYBACK 50 MG IV (18:39)
--- NOTE | 2023-04-22 19:44 | PC.NURSE ---
3 scabbed areas to left leg to goode, knee and thigh open to air. No drainage observed.
[2023-04-22] MEDS: GUAIFENESIN 600 MG TAB.ER.12H PO (21:46)
[2023-04-22] MEDS: ATORVASTATIN CALCIUM 20 MG TABLET PO (21:46)
[2023-04-22] MEDS: APIXABAN 5 MG TABLET 2.5 MG PO (21:46)
[2023-04-23] VITALS (27 sets, daily range): BP systolic 115–166; BP diastolic 66–100; PULSE 79–140; RESP 18–20; TEMP 36.4–36.9; O2SAT 84–113
[2023-04-23] MEDS: MORPHINE SULFATE 2 MG/ML SYRINGE IV ×2 (01:04→05:09)
[2023-04-23] MEDS: VANCOMYCIN HCL 750 MG in 0.9 % SODIUM CHLORIDE 250 ML 125 MG IV (03:15)
[2023-04-23] MEDS: LACTATED RINGER'S SOLUTION 1,000 ML 100 ML IV (05:08)
[2023-04-23 06:10] LABS: Basophils Percent Auto 0.3 % (0.2-2.0); Eosinophils Absolute Auto 0.1 10^3/uL (0.0-0.7); Eosinophils Percent Auto 1.7 % (0.9-7.0); Hematocrit 31.8 % (36.0-48.0); Hemoglobin 9.6 g/dL (12.0-16.0); Immature Granulocytes Abs Auto 0.03 10^3/uL (0.00-0.03); Immature Granulocytes Pct Auto 0.5 % (0.0-0.5); Lymphocytes Percent Auto 15.3 % (20.5-60.0); Mean Corpuscular HGB Conc 30.2 g/dL (29.9-35.2); Mean Corpuscular Hemoglobin 31.4 pg (26.7-34.0); Mean Corpuscular Volume 103.9 fL (81.0-99.0); Monocytes Absolute Auto 0.9 10^3/uL (0.3-0.8); Monocytes Percent Auto 13.9 % (1.7-12.0); Neutrophils Absolute Auto 4.4 10^3/uL (1.4-6.5); Neutrophils Percent Auto 68.3 % (43.0-75.0); Platelet Count 430 10^3/uL (150-450); Red Blood Count 3.06 10^6/uL (4.20-5.40); Red Cell Distribution Width 14.1 % (11.0-15.0); White Blood Count 6.5 10^3/uL (4.0-11.0)
[2023-04-23 06:45] LABS: Alanine Aminotransferase 17 U/L (14-59); Albumin Globulin Ratio 0.5; Alkaline Phosphatase 77 U/L (46-116); Anion Gap 14.8; Aspartate Amino Transferase 14 U/L (15-37); BUN Creatinine Ratio 5.1; Bilirubin Total 0.3 mg/dL (0.2-1.0); Calcium 8.5 mg/dL (8.5-10.1); Carbon Dioxide 23.8 mmol/L (21.0-32.0); Chloride 109 mmol/L (98-107); Estimated GFR (African America >60 (>=60); Estimated GFR (Non-African Ame >60 (>=60); Globulin 3.8 g/dL; Glucose 130 mg/dL (74-106); Potassium 3.6 mmol/L (3.5-5.1); Sodium 144 mmol/L (136-145); Total Protein 5.8 g/dL (6.4-8.2)
--- NOTE | 2023-04-23 07:21 | P.HP_ITS ---
H&P: HPI History of Present Illness Chief complaint: SHORTNESS OF BREATH Narrative: 78 y female with recent hospital admission in March for bacterial pneumonia presents with worsening shortness of breath, cough with yellow sputum, generalized weakness, fatigue and sore throat. She was discharged first week of March and was recovering slowly but started to get worse and progressively SOB to the point where she could not catch her breath and hence came to ED last night. She had right LE injury because of something that fell over right leg and has noticed LE edema. She had AKA on left side. On arrival, patient was hypoxic and required increased O2 and was placed on 4 L O2 via NC. She was hypoxic silver ier today with pulse Ox in 88 when attempted to wean her off to her home requirement of 2 L O2. Patient was earlier noted to be anxious and slightly confused and initially presumed to have developed alcohol withdrawal like previous admission but she adamantly denies drinking alcohol since hospital discharge. Her daughter mention increasingly worsening memory problems and issues and that her memory has sig worsened since last hospital admission. Patient doing well and looks comfortable on exam. Answering questions appropriately. Review of Systems ROS Status of ROS 10 or more systems reviewed and unremark able except as noted in history and below [facility] Medical History (Updated 04/23/23 @ 14:43 by Shaikh Jordy MD) HTN (hypertension) ?I10 - Essential (primary) hypertension (ICD-10) Chronic respiratory failure with hypoxia ?J96.11 - Chronic respiratory failure with hypoxia (ICD-10) Alcohol abuse ?F10.10 - Alcohol abuse, uncomplicated (ICD-10) New onset a-fib ?I48.91 - Unspecified atrial fibrillation (ICD-10) COVID-19 ?U07.1 - COVID-19 (ICD-10) HLD (hyperlipidemia) ?E78.5 - Hyperlipidemia, unspecified (ICD-10) PAD (peripheral artery disease) ?I73.9 - Peripheral vascular disease, unspecified (ICD-10) COPD (chronic obstructive pulmonary disease) ?J44.9 - Chronic obstructive pulmonary disease, unspecified (ICD-10) Oxygen dependent ?Z99.81 - Dependence on supplemental oxygen (ICD-10) Surgical History (Updated 04/22/23 @ 14:44 by Vanita Maloney) History of carpal tunnel surgery ?Z98.890 - Other specified postprocedural states (ICD-10) H/O: hysterectomy ?Z90.710 - Acquired absence of both cervix and uterus (ICD-10) Amputated left leg ?S88.912A - Complete traumatic amputation of left lower leg, level unspecified, initial encounter (ICD-10) Social History Within the past year, how often did you have a drink containing alcohol: 4 or more times a week Within the past year, how many standard drinks containing alcohol did you have on a typical day: 3 or 4 Within the past year, how often did you have six or more drinks on one occasion: weekly Total score: 5 Score interpretation: A score of 3 or more indicates drinking is likely to affect patient's safety. Smoking status: Former smoker Highest level of school completed/degree received: high school graduate Do you think of yourself as: straight/heterosexual Gender Identity: female Meds Home Medications and Allergies Home Medications Medication Instructions Recorded Confirmed Type albuterol 90 mcg/actuation aerosol 90 mcg inhalation .q 4 hours PRN 03/27/23 04/22/23 History inhaler sob atorvastatin 20 mg tablet 20 mg PO BEDTIME 03/27/23 04/22/23 History budesonide-formoterol HFA 160 2 inh inhalation Q12H 03/27/23 04/22/23 History mcg-4.5 mcg/actuation aerosol inhaler (Symbicort) docusate sodium 100 mg capsule 100 mg PO BID 03/27/23 04/22/23 History duloxetine 60 mg capsule,delayed 60 mg PO DAILY 03/27/23 04/22/23 History release gabapentin 800 mg tablet 800 mg PO TID 03/27/23 04/22/23 History nitroglycerin 0.4 mg sublingual 0.4 mg sublingual Q5M PRN chest 03/27/23 04/22/23 History tablet pain ondansetron 4 mg disintegrating 4 mg PO TID PRN nausea and vomiting 03/27/23 04/22/23 History tablet oxycodone 10 mg tablet 10 mg PO Q6H PRN pain 03/27/23 04/22/23 History pantoprazole 40 mg tablet,delayed 40 mg PO DAILY 03/27/23 04/22/23 History release spironolactone 25 mg tablet 25 mg PO DAILY 03/27/23 04/22/23 History tizanidine 4 mg tablet 4 mg PO TID PRN muscle spasticity 03/27/23 04/22/23 History apixaban 2.5 mg tablet (Eliquis) 2.5 mg PO BID 04/22/23 04/22/23 History metoprolol succinate 25 mg 25 mg PO DAILY 04/22/23 04/22/23 History tablet,extended release 24 hr mupirocin 2 % topical ointment 1 applic topical BID 04/22/23 04/22/23 History Allergies Allergy/AdvReac Type Severity Reaction Status Date / Time No Known Drug Allergies Allergy Verified 03/27/23 07:02 Exam Constitutional Vital Signs, click to edit/add: Last Vital Signs Temp 98.4 F 04/23/23 05:18 Pulse 116 H 04/23/23 06:00 Resp 20 04/23/23 05:18 BP 146/78 H 04/23/23 05:18 Pulse Ox 94 L 04/23/23 06:00 O2 Del Method Nasal Cannula 04/23/23 05:18 O2 Flow Rate 3 04/23/23 05:18 Documenting provider has reviewed patient's vital signs: yes Common normals: no apparent distress General appearance: cooperative and comfortable Orientation/consciousness: Yes awake, Yes oriented to person and Yes oriented to place Respiratory Common normals: normal respiratory effort and no use of accessory muscles Auscultation: crackles, wheezes and diminished lung sounds Cardio Common normals: S1 normal heart sound Rate: tachycardic Rhythm: abnormal rhythm GI Common normals: Normal to inspection, nondistended, normoactive bowel sounds present, soft to palpation and non-tender Extremity General: edema (+1 RLE edema. LLE AKA) Neuro Common normals: oriented x3, CN's II-XII intact bilaterally, moves all extremities and no focal motor deficits Psych Common normals: mental status grossly normal, thought process normal, denies homicidal ideation and denies suicidal ideation Results Labs Labs: Short CBC 04/22/23 04/23/23 Range/Units 11:28 05:15 WBC 6.1 6.5 (4.0-11.0) 10^3/uL Hgb 10.4 L 9.6 L (12.0-16.0) g/dL Hct 34.7 L 31.8 L (36.0-48.0) % Plt Count 405 430 (150-450) 10^3/uL BMP 04/22/23 04/23/23 11:28 05:15 Sodium 142 144 Potassium 4.0 3.6 Chloride 104 109 H Carbon Dioxide 26.7 23.8 BUN 6.0 L 3.0 L Creatinine 0.70 0.59 Glucose 106 130 H Calcium 8.9 8.5 Liver Function 04/22/23 04/23/23 Range/Units 11:28 05:15 Total Bilirubin 0.3 0.3 (0.2-1.0) mg/dL AST 15 14 L (15-37) U/L ALT <6 L 17 (14-59) U/L Alkaline Phosphatase 81 77 (46-116) U/L Albumin 2.3 L 2.0 L (3.4-5.0) g/dL ABG ABG results: 04/22/23 12:55 VBG pH 7.437 H VBG pCO2 37.6 L Assessment and Plan Assessment and Plan (1) Hospital-acquired pneumonia: Assessment and Plan: Recent hospital admission for community acquired PNA. Presented within a month of hospital admission with worsening SOB, hypoxia, Right upper lobe infiltrate - new. Started on IV Vancomycin/Levaquin. F/u blood and sputum cx. (2) Chronic respiratory failure with hypoxia: Assessment and Plan: On 2-3 L O2 via NC due to COPD. Currently on 4 LO2 via NC. due to PNA and Acute on chronic diastolic HF. (3) COPD (chronic obstructive pulmonary disease): Assessment and Plan: Mild COPD exacerbation. Avoid steroids due to acute on chronic diastolic HF. C/w duonebs. Added mucinex and OPEP. Monitor. Qualifiers: COPD type: COPD with acute exacerbation Qualified Code(s): J44.1 - Chronic obstructive pulmonary disease with (acute) exacerbation (4) Acute and chronic respiratory failure with hypoxia: Assessment and Plan: Baseline O2 requirement is 2 L. Now on 4 L. Due to PNA, CHF. (5) Acute on chronic diastolic (congestive) heart failure: Assessment and Plan: Volume overload on exam, elevated BNP. Started on Lasix 40 q12. Monitor UO, I/O, daily weights. (6) Atrial fibrillation with RVR: Assessment and Plan: Poorly controlled rate. Increased Toprol to 100 mg daily. 2D ECHO 04/17 - no sig valvular pathology, normal EF. On Eliquis for AC. (7) HTN (hypertension): Assessment and Plan: increased Toprol to 100 mg for afib with RVR. BP above goal. C/w aldactone. Qualifiers: Hypertension type: primary hypertension Qualified Code(s): I10 - Essential (primary) hypertension (8) Right lower lobe lung mass: Assessment and Plan: spicular right lower lobe density - malignancy vs pneumonia. Needs repeat CT in 1-2 month as outpatient. (9) Alcohol abuse: Assessment and Plan: Prior hx of alcohol withdrawal and required treatment for it. Denies alcohol use for over 3 weeks now. Monitor closely. (10) HLD (hyperlipidemia): Assessment and Plan: c/w statin Qualifiers: Hyperlipidemia type: mixed hyperlipidemia Qualified Code(s): E78.2 - Mixed hyperlipidemia (11) Right leg injury: Assessment and Plan: Superficial skin tear. Order XR and DVT scan as associated LE edema to r/o DVT. Qualifiers: Encounter type: subsequent encounter Qualified Code(s): S89.91XD - Unspecified injury of right lower leg, subsequent encounter
--- NOTE | 2023-04-23 07:23 | RESP.RT ---
titrated down to 2L
[2023-04-23 08:30] LABS: SARS-CoV-2 NAA NOT DETECTED (NOT DETECTE)
--- NOTE | 2023-04-23 09:00 | RESP.RT ---
titrated down to 2L
[2023-04-23] MEDS: APIXABAN 5 MG TABLET 2.5 MG PO ×2 (09:08→21:36)
[2023-04-23] MEDS: DULOXETINE HCL 60 MG CAPSULE.DR PO (09:09)
[2023-04-23] MEDS: METOPROLOL SUCCINATE 25 MG TAB.ER.24H PO (09:09)
[2023-04-23] MEDS: OMEPRAZOLE 40 MG CAPSULE.DR PO (09:09)
[2023-04-23] MEDS: GUAIFENESIN 600 MG TAB.ER.12H PO ×2 (09:10→21:36)
[2023-04-23] MEDS: GABAPENTIN 400 MG CAPSULE 800 MG PO ×3 (09:10→21:36)
[2023-04-23] MEDS: OXYCODONE HCL 5 MG TABLET PO (09:10)
--- NOTE | 2023-04-23 09:47 | CM.NOTE ---
Important Message From Medicare discussed with pt, pt verbalizes understanding and signs paper. Original given to pt and copy placed on pt's chart.
--- NOTE | 2023-04-23 10:10 | CM.NOTE ---
Spoke with [facility] regarding pt's home oxygen. Pt is active with them. Explained that pt needs extension tubing and portability. Intake will e-mail her resident care supervisor regarding portability and they have sent out more tubing and extension for pt on 04/22. They will contact pt's daughter. Called Kris and pt also active with HH, pt plans on continuing with HH. Updates sent to Kris.
[2023-04-23] MEDS: LORAZEPAM 1 MG TABLET 2 MG PO (10:13)
--- NOTE | 2023-04-23 11:31 | CM.NOTE ---
Rounding with Dr. Spence. Daughter at bedside at this time. Pt. is current with [facility] and has [facility] for Home Oxygen. [employer] Darling been in contact with [facility] regarding home oxygen setup. Discussed importance with patient and daughter compliance with wearing oxygen at home. Plan to resume home health upon discharge. Darling case repairer to ensure patient will have oxygen upon discharge from hospital for patient to get home.
[2023-04-23] MEDS: FUROSEMIDE 40 MG/4 ML VIAL IVP (13:22)
--- NOTE | 2023-04-23 14:09 | US_ITS ---
The [address] [address] Patient Name: SANCHEZ SAMSON MRN: [id number] date: 1945 Sex: F Assigned Patient Location: [place] Current Patient Location: [place] Accession/Order Number: [id number] Exam Date: 04/23/2023 19:00 Report Date: 04/24/2023 01:17 At the request of: SHAIKH VINNIE Procedure: US venous doppler LE RT EXAMINATION: US venous doppler LE RT HISTORY: swelling COMPARISON: No relevant comparison available. FINDINGS: REGION: Right lower extremity THROMBI: None within deep system. COMPRESSIBILITY: Normal compressibility of deep system. FLOW: Normal waveform and antegrade flow between 5 and 20 cm/s. OTHER: Thrombosed superficial small saphenous vein from proximal to distal calf. US/US venous doppler LE RT IMPRESSION: 1. No deep vein thrombus within the right lower extremity. 2. Superficial small saphenous vein thrombosis suggestive of superficial thrombophlebitis. Electronically authenticated by: JOSIE PARIS Date: 04/24/2023 01:17
--- NOTE | 2023-04-23 14:10 | XR_ITS ---
[place] [address] Patient Name: SANCHEZ SAMSON MRN: [id number] date: 1945 Sex: F Assigned Patient Location: MS Current Patient Location: [place] Accession/Order Number: [id number] Exam Date: 04/23/2023 14:20 Report Date: 04/23/2023 15:38 At the request of: SHAIKH VINNIE Procedure: XR tibia fibula RT 2V STUDY: XR tibia fibula RT 2V, [id number] HISTORY: pain COMPARISON: None FINDINGS: No acute fracture, dislocation, or suspicious osseous lesion. Trace knee joint effusion. No significant osteoarthritis of the knee. No subcutaneous emphysema or radiopaque foreign body. Scattered vascular calcifications present. XR/XR tibia fibula RT 2V IMPRESSION: 1. No osseous etiology for pain demonstrated. 2. Trace knee joint effusion. Electronically authenticated by: HUMAIRA HERNANDEZ Date: 04/23/2023 15:38
--- NOTE | 2023-04-23 14:22 | CM.NOTE ---
Information passed onto patient's nurse Vanita of the importance that the nurse on the day of discharge contact [facility] to get patient a portable tank delivered to hospital for discharge to home at phone number [phone], this information is also on discharge instructions and on white board for nursing staff.
[2023-04-23] MEDS: METOPROLOL SUCCINATE 100 MG TAB.ER.24H PO (15:14)
--- NOTE | 2023-04-23 16:04 | RESP.RT ---
titrated down to 3L
[2023-04-23] MEDS: VANCOMYCIN HCL 750 MG in 0.9 % SODIUM CHLORIDE 250 ML 250 MG IV (16:36)
--- NOTE | 2023-04-23 17:29 | RESP.RT ---
titrated down to 2L
[2023-04-23] MEDS: DILTIAZEM HCL 25 MG/5 ML VIAL 10 MG IV (17:53)
[2023-04-23] MEDS: ATORVASTATIN CALCIUM 20 MG TABLET PO (21:36)
[2023-04-23] MEDS: IPRATROPIUM/ALBUTEROL SULFATE 3 ML AMPUL.NEB IH (23:15)
[2023-04-23] MEDS: BUDESONIDE 0.5 MG/2 ML AMPULE NEB IH (23:15)
[2023-04-24] VITALS (22 sets, daily range): BP systolic 102–130; BP diastolic 68–80; PULSE 82–107; RESP 18–20; TEMP 36.5–37.1; O2SAT 90–93
[2023-04-24] MEDS: FUROSEMIDE 40 MG/4 ML VIAL IVP ×2 (02:06→13:50)
[2023-04-24] MEDS: VANCOMYCIN HCL 750 MG in 0.9 % SODIUM CHLORIDE 250 ML 250 MG IV ×2 (03:44→15:37)
[2023-04-24] MEDS: IPRATROPIUM/ALBUTEROL SULFATE 3 ML AMPUL.NEB IH ×4 (04:25→23:11)
[2023-04-24 04:51] LABS: Basophils Absolute Auto 0.1 10^3/uL (0.0-0.1); Basophils Percent Auto 0.7 % (0.2-2.0); Eosinophils Absolute Auto 0.1 10^3/uL (0.0-0.7); Eosinophils Percent Auto 1.9 % (0.9-7.0); Hematocrit 35.4 % (36.0-48.0); Hemoglobin 10.6 g/dL (12.0-16.0); Immature Granulocytes Abs Auto 0.03 10^3/uL (0.00-0.03); Immature Granulocytes Pct Auto 0.4 % (0.0-0.5); Lymphocytes Absolute Auto 1.2 10^3/uL (1.2-3.8); Mean Corpuscular HGB Conc 29.9 g/dL (29.9-35.2); Mean Corpuscular Hemoglobin 31.5 pg (26.7-34.0); Mean Corpuscular Volume 105.4 fL (81.0-99.0); Monocytes Percent Auto 14.4 % (1.7-12.0); Neutrophils Absolute Auto 4.5 10^3/uL (1.4-6.5); Neutrophils Percent Auto 65.6 % (43.0-75.0); Platelet Count 496 10^3/uL (150-450); Red Blood Count 3.36 10^6/uL (4.20-5.40); Red Cell Distribution Width 14.2 % (11.0-15.0); White Blood Count 6.9 10^3/uL (4.0-11.0)
[2023-04-24 05:10] LABS: Alanine Aminotransferase 18 U/L (14-59); Albumin Globulin Ratio 0.5; Albumin Level 2.1 g/dL (3.4-5.0); Alkaline Phosphatase 80 U/L (46-116); Aspartate Amino Transferase 15 U/L (15-37); Bilirubin Total 0.4 mg/dL (0.2-1.0); Carbon Dioxide 28.2 mmol/L (21.0-32.0); Chloride 106 mmol/L (98-107); Estimated GFR (African America >60 (>=60); Estimated GFR (Non-African Ame >60 (>=60); Globulin 4.2 g/dL; Glucose 132 mg/dL (74-106); Potassium 3.2 mmol/L (3.5-5.1); Sodium 143 mmol/L (136-145); Total Protein 6.3 g/dL (6.4-8.2)
[2023-04-24 05:19] LABS: BUN Creatinine Ratio 6.3
[2023-04-24] MEDS: GABAPENTIN 400 MG CAPSULE 800 MG PO ×3 (05:22→22:37)
[2023-04-24] MEDS: OMEPRAZOLE 40 MG CAPSULE.DR PO (05:31)
[2023-04-24] MEDS: METOPROLOL SUCCINATE 100 MG TAB.ER.24H PO (08:47)
[2023-04-24] MEDS: APIXABAN 5 MG TABLET 2.5 MG PO ×2 (08:47→22:36)
[2023-04-24] MEDS: SPIRONOLACTONE 25 MG TABLET PO (08:47)
[2023-04-24] MEDS: DULOXETINE HCL 60 MG CAPSULE.DR PO (08:47)
[2023-04-24] MEDS: OXYCODONE HCL 5 MG TABLET PO (08:47)
[2023-04-24] MEDS: GUAIFENESIN 600 MG TAB.ER.12H PO ×2 (09:01→22:37)
--- NOTE | 2023-04-24 09:39 | REH.PTDLY ---
Physical Therapy Daily Note PT Daily Note/Assess Start: 04/24/23 09:34 Freq: Status: Active Protocol: Document 04/24/23 08:15 KINGS (Rec: 04/24/23 09:39 [facility] [id number]) Physical Therapy Daily Note/Assessment Time In 08:11 Time Out 08:26 Pain Level 0 Pain Level 0 Subjective Pt awake and agreeable to therapy. Therapeutic Exercise Minutes (minutes) 8 Therapeutic Exercise Units 1 Therapeutic Exercise Treatment Instructed pt in R LE supine exs 10x ea with ankle pump, SLR-fatigues, heel slides, and hip abd. Seated R LE LAQ and marching 10x ea for improved strength. Therapeutic Activity Minutes (minutes) 6 Therapeutic Activity Units 0 Bed Mobility Ability Standby Assistance Chair Transfer Ability Contact Guard Assist Therapeutic Activity Comments Pt transfers supine to sit SBA using bed rail. sit to stand transfer CGA for safety. Pt performs stand pivot transfer from chair to recliner CGA. Pt attempts to turn one way initially and then changes her mind and goes the other direction. Reports she has a specific way at home. Total Therapy Minutes 14 Total Physical Therapy Units 1 Daily Note Summary Pt does well with therapy, is in good spirits today. No anxiousness noted during rx. SpO2 reads better on ear lobe at 93% post transfers and exs. Pt seems to be at baseline from subjective report.
[2023-04-24] MEDS: BUDESONIDE 0.5 MG/2 ML AMPULE NEB IH ×2 (10:29→23:11)
[2023-04-24 10:42] LABS: Vancomycin Random 14.2 ug/mL
[2023-04-24] MEDS: LEVOFLOXACIN IN DEXTROSE 5 % 750 MG/150 ML IV.SOLN 100 MG IV (13:51)
--- NOTE | 2023-04-24 17:36 | PM.PN ---
Progress Note: Subjective Subjective Interval history: Patient feels better this am. Less SOB but mild cough. Afebrile. Continues to have edema in right leg but improved. Normal WBC. Remains on 2 LPM. Normal appetite but no emesis or diarrhea. No chest pain or palpitations. Exam Constitutional Vital Signs, click to edit/add: Last Vital Signs Temp 97.7 F 04/24/23 14:01 Pulse 102 H 04/24/23 17:29 Resp 18 04/24/23 14:01 BP 102/68 04/24/23 14:01 Pulse Ox 93 L 04/24/23 14:01 O2 Del Method Nasal Cannula 04/24/23 14:01 O2 Flow Rate 2 04/24/23 14:01 Documenting provider has reviewed patient's vital signs: yes Common normals: no apparent distress, oriented x3 and alert HENMT Common normals: normocephalic Eye Common normals: PERRL and EOMs intact bilaterally Respiratory Common normals: normal respiratory effort Auscultation: crackles Cardio Common normals: regular rate, regular rhythm, no gallops, no murmurs and no rub Extremity Right lower extremity: foot and digits (Edema of right foot and lower leg) Progress Note: Objective Labs Labs: Short CBC 04/24/23 Range/Units 04:27 WBC 6.9 (4.0-11.0) 10^3/uL Hgb 10.6 L (12.0-16.0) g/dL Hct 35.4 L (36.0-48.0) % Plt Count 496 H (150-450) 10^3/uL BMP 04/24/23 04:27 Sodium 143 Potassium 3.2 L Chloride 106 Carbon Dioxide 28.2 BUN 4.0 L Creatinine 0.64 Glucose 132 H Calcium 9.0 Liver Function 04/24/23 Range/Units 04:27 Total Bilirubin 0.4 (0.2-1.0) mg/dL AST 15 (15-37) U/L ALT 18 (14-59) U/L Alkaline Phosphatase 80 (46-116) U/L Albumin 2.1 L (3.4-5.0) g/dL Progress Note: A&P Assessment and Plan (1) Hospital-acquired pneumonia: (2) Acute on chronic diastolic (congestive) heart failure: (3) Acute and chronic respiratory failure with hypoxia: (4) Atrial fibrillation with RVR: (5) HTN (hypertension): Qualifiers: Hypertension type: primary hypertension Qualified Code(s): I10 - Essential (primary) hypertension (6) Right lower lobe lung mass: (7) COPD (chronic obstructive pulmonary disease): Qualifiers: COPD type: COPD with acute exacerbation Qualified Code(s): J44.1 - Chronic obstructive pulmonary disease with (acute) exacerbation Plan Patient continues to improve and less SOB. Continue antibiotics and breathing treatments. Continue IV lasix for edema. Elevate leg PRN. Discussed compression but patient refused. If continues to improve possibly discharge in am.
[2023-04-24] MEDS: ATORVASTATIN CALCIUM 20 MG TABLET PO (22:37)
[2023-04-25] VITALS (11 sets, daily range): BP systolic 105–122; BP diastolic 59–91; PULSE 67–114; RESP 24; O2SAT 90–94
[2023-04-25] MEDS: FUROSEMIDE 40 MG/4 ML VIAL IVP (02:50)
[2023-04-25] MEDS: IPRATROPIUM/ALBUTEROL SULFATE 3 ML AMPUL.NEB IH ×2 (04:38→10:13)
[2023-04-25] MEDS: VANCOMYCIN HCL 750 MG in 0.9 % SODIUM CHLORIDE 250 ML 125 MG IV (05:40)
[2023-04-25 06:02] LABS: Basophils Percent Auto 0.4 % (0.2-2.0); Eosinophils Absolute Auto 0.1 10^3/uL (0.0-0.7); Eosinophils Percent Auto 1.6 % (0.9-7.0); Hematocrit 38.3 % (36.0-48.0); Hemoglobin 11.9 g/dL (12.0-16.0); Immature Granulocytes Abs Auto 0.03 10^3/uL (0.00-0.03); Immature Granulocytes Pct Auto 0.4 % (0.0-0.5); Lymphocytes Absolute Auto 1.5 10^3/uL (1.2-3.8); Lymphocytes Percent Auto 17.8 % (20.5-60.0); Mean Corpuscular HGB Conc 31.1 g/dL (29.9-35.2); Mean Corpuscular Hemoglobin 31.8 pg (26.7-34.0); Mean Corpuscular Volume 102.4 fL (81.0-99.0); Monocytes Absolute Auto 1.1 10^3/uL (0.3-0.8); Neutrophils Absolute Auto 5.7 10^3/uL (1.4-6.5); Neutrophils Percent Auto 66.8 % (43.0-75.0); Platelet Count 581 10^3/uL (150-450); Red Blood Count 3.74 10^6/uL (4.20-5.40); White Blood Count 8.5 10^3/uL (4.0-11.0)
[2023-04-25 06:20] LABS: Alanine Aminotransferase 7 U/L (14-59); Albumin Globulin Ratio 0.5; Albumin Level 2.2 g/dL (3.4-5.0); Alkaline Phosphatase 81 U/L (46-116); Anion Gap 12.1; Aspartate Amino Transferase 16 U/L (15-37); BUN Creatinine Ratio 7.3; Bilirubin Total 0.3 mg/dL (0.2-1.0); Calcium 9.2 mg/dL (8.5-10.1); Chloride 104 mmol/L (98-107); Estimated GFR (African America >60 (>=60); Estimated GFR (Non-African Ame >60 (>=60); Globulin 4.7 g/dL; Glucose 142 mg/dL (74-106); Potassium 3.1 mmol/L (3.5-5.1); Sodium 144 mmol/L (136-145); Total Protein 6.9 g/dL (6.4-8.2)
[2023-04-25] MEDS: OMEPRAZOLE 40 MG CAPSULE.DR PO (06:44)
[2023-04-25] MEDS: GABAPENTIN 400 MG CAPSULE 800 MG PO (06:44)
[2023-04-25] MEDS: GUAIFENESIN 600 MG TAB.ER.12H PO (09:46)
[2023-04-25] MEDS: DULOXETINE HCL 60 MG CAPSULE.DR PO (09:46)
[2023-04-25] MEDS: POTASSIUM CHLORIDE 10 MEQ ER TABLET 40 MEQ PO (09:46)
[2023-04-25] MEDS: SPIRONOLACTONE 25 MG TABLET PO (09:46)
[2023-04-25] MEDS: METOPROLOL SUCCINATE 100 MG TAB.ER.24H PO (09:48)
[2023-04-25] MEDS: APIXABAN 5 MG TABLET 2.5 MG PO (09:49)
[2023-04-25] MEDS: BUDESONIDE 0.5 MG/2 ML AMPULE NEB IH (10:15)
--- NOTE | 2023-04-25 16:18 | PM.DS1 ---
DS: Providers Provider Date of admission: 04/22/23 13:57 Primary care physician: Nettie Jha MD Consults: 04/22/23 14:58 Occupational Therapy Eval and Treat Routine Reason for consultation: Ambulatory dysfunction/weakness Physical Therapy Eval and Treat Routine Reason for consultation: Ambulatory dysfunction/weakness DS: Diagnosis Discharge Diagnosis (1) Hospital-acquired pneumonia: (2) Acute on chronic diastolic (congestive) heart failure: (3) Acute and chronic respiratory failure with hypoxia: (4) Atrial fibrillation with RVR: (5) HTN (hypertension): Qualifiers: Hypertension type: primary hypertension Qualified Code(s): I10 - Essential (primary) hypertension (6) Right lower lobe lung mass: (7) COPD (chronic obstructive pulmonary disease): Qualifiers: COPD type: COPD with acute exacerbation Qualified Code(s): J44.1 - Chronic obstructive pulmonary disease with (acute) exacerbation DS: Summary Hospital Course Hospital Course: Reason for admission: See ER note and H&P for details. 78 y/o female to ER with SOB. Admitted 03/27-04/01 with covid pneumonia and hypoxia. Discharged home on oxygen. Feels like never completely improved then symptoms worsened. Increased SOB and cough. Severe weakness. Developed worsening edema in leg. To ER and SpO2 86% on room air. CT showed pneumonia and fluid overload. Admitted for treatment. Hospital course: Started antibiotics and IV lasix. Resumed home medication. Developed rapid afib and increased metoprolol. Slowly improved in hospital. CT showed complex pneumonia and possible lung mass. Less edema. Mild SOB and cough. Afebrile and normal WBC. Discharged home in stable condition. Will take levaquin x 7 days. Start oral lasix. F/u with PCP in 1-2 weeks and will need repeat CT in 2-3 months. Time Spent with Patient Time attestation: Total time spent providing and/or coordinating discharge services: Exam Constitutional Vital Signs, click to edit/add: Last Vital Signs Temp 98.2 F 04/24/23 19:43 Pulse 114 H 04/25/23 10:00 Resp 24 04/25/23 04:38 BP 105/59 04/25/23 09:46 Pulse Ox 94 L 04/25/23 10:30 O2 Del Method Nasal Cannula 04/25/23 10:30 O2 Flow Rate 2 04/25/23 10:30 Documenting provider has reviewed patient's vital signs: yes Common normals: no apparent distress, oriented x3 and alert HENMT Common normals: normocephalic Eye Common normals: PERRL Respiratory Common normals: normal respiratory effort and clear to auscultation bilaterally Cardio Common normals: regular rate, regular rhythm, no gallops, no murmurs and no rub GI Common normals: Normal to inspection, nondistended, normoactive bowel sounds present and non-tender Extremity Common normals: no pedal edema DS: Data Data Completed and Pending Labs on day of discharge: Labs from last 24 hours 04/25/23 05:10 WBC 8.5 RBC 3.74 L Hgb 11.9 L Hct 38.3 MCV 102.4 H MCH 31.8 MCHC 31.1 RDW 14.0 Plt Count 581 H MPV 10.0 Neut % (Auto) 66.8 Lymph % (Auto) 17.8 L [place] % (Auto) 13.0 H Eos % (Auto) 1.6 Baso % (Auto) 0.4 Neut # (Auto) 5.7 Lymph # (Auto) 1.5 [place] # (Auto) 1.1 H Eos # (Auto) 0.1 Baso # (Auto) 0.0 Abs Immat Gran (auto) 0.03 Imm/Tot Granulo (auto) 0.4 Sodium 144 Potassium 3.1 L Chloride 104 Carbon Dioxide 31.0 Anion Gap 12.1 BUN 6.0 L Creatinine 0.82 Est GFR ( Amer) >60 Est GFR (Non-Af Amer) >60 BUN/Creatinine Ratio 7.3 Glucose 142 H Calcium 9.2 Total Bilirubin 0.3 AST 16 ALT 7 L Alkaline Phosphatase 81 Total Protein 6.9 Albumin 2.2 L Globulin 4.7 Albumin/Globulin Ratio 0.5 Preliminary micro results at discharge 04/22/23 12:55 - Preliminary Blood 04/22/23 12:46 Blood Culture Result 1 - Preliminary Blood Discharge Plan Discharge Disposition: Home, Self-Care Discharge Medications: New metoprolol succinate 100 mg Tablet Extended Release 24 Hr 100 mg PO DAILY Qty: 30 0RF furosemide 40 mg tablet 40 mg PO DAILY Qty: 30 0RF levofloxacin 750 mg tablet 750 mg PO DAILY 7 Days Qty: 7 0RF Continued atorvastatin 20 mg tablet 20 mg PO BEDTIME docusate sodium 100 mg capsule 100 mg PO BID duloxetine 60 mg capsule,delayed release(DR/EC) 60 mg PO DAILY gabapentin 800 mg tablet 800 mg PO TID nitroglycerin 0.4 mg tablet, sublingual 0.4 mg sublingual Q5M PRN (Reason: chest pain) oxycodone 10 mg tablet 10 mg PO Q6H PRN (Reason: pain) pantoprazole 40 mg tablet,delayed release (DR/EC) 40 mg PO DAILY spironolactone 25 mg tablet 25 mg PO DAILY budesonide-formoterol [Symbicort] 160-4.5 mcg/actuation HFA aerosol inhaler 2 inh INHALATION Q12H albuterol 90 mcg/actuation aerosol 90 mcg inhalation .q 4 hours PRN (Reason: sob) ondansetron 4 mg tablet,disintegrating 4 mg PO TID PRN (Reason: nausea and vomiting) tizanidine 4 mg tablet 4 mg PO TID PRN (Reason: muscle spasticity) Eliquis 2.5 mg tablet 2.5 mg PO BID mupirocin 2 % ointment 1 applic TOPICAL BID Discontinued metoprolol succinate 25 mg tablet extended release 24 hr 25 mg PO DAILY Activity: resume usual activities as tolerated Diet: advance to your usual diet Patient Instructions: A-fib (Atrial Fibrillation) (DC), COPD (Chronic Obstructive Pulmonary Disease) (DC), Community Acquired Pneumonia (ED), Community Acquired Pneumonia (DC), Community Acquired Pneumonia (GEN), Hypoxia (GEN) Moss Picker/Cold Reduction Roller Instructions: [facility] [phone] [phone] Forms: Portal Instructions Follow Up Appointments: Patient is to schedule a follow up appt. with Dr. Jha for 5-7 days following discharge. [phone] Discharge Date/Time: 04/25/23 13:39
--- NOTE | 2023-04-27 09:53 | CM.DCFOLLOWU ---
Person spoke with: daughter How are you feeling? states mother is doing much better since she is home, just tired. How is your pain? she is not having pain Did you understand your discharge instructions? daughter states yes, but states she has not contacted the oxygen company nor Dr. Jha's office for a follow up appointment. Do you have any questions about your discharge instructions? states no Were you given any prescriptions at discharge? yes Were you able to get your prescriptions filled? yes Do you understand how to take your medications as ordered? daughter states yes Do you have any questions about your follow up appointment and do you plan to keep your follow up appointment? see above. Daughter states she will call today after work to schedule follow up appointment. Is there anything else that you would like to discuss? no, I am working today and I will call oxygen company and Dr. Jha's office as soon as I am off work. Stressed the importance to daughter of contact the home oxygen company to ensure the patient has the supplies she needs at home as this could help prevent her from having to come back to the hospital. Daughter voiced understanding. Questions/Comments/Concerns/Other:
== END 2023-04-25 13:39 | disposition home health service (06) | DRG 193 ==
LOC: ER 14:20 → MS 14:21
PROVIDERS: Admitting Provider Internal Medicine; Emergency Provider Emergency Medicine Emergency Medical Services; PCP Family Medicine; Visit Provider Internal Medicine
DX: J18.9 Pneumonia, unspecified organism (principal); I50.33 Acute on chronic diastolic (congestive) heart failure; J96.21 Acute and chronic respiratory failure with hypoxia; J44.0 Chronic obstructive pulmonary disease with (acute) lower respiratory infection; J44.1 Chronic obstructive pulmonary disease with (acute) exacerbation; I11.0 Hypertensive heart disease with heart failure; I48.91 Unspecified atrial fibrillation; R91.8 Other nonspecific abnormal finding of lung field; E78.2 Mixed hyperlipidemia; I73.9 Peripheral vascular disease, unspecified; S81.811A Laceration without foreign body, right lower leg, initial encounter; W22.8XXA Striking against or struck by other objects, initial encounter; Y92.009 Unspecified place in unspecified non-institutional (private) residence as the place of occurrence of the external cause; Z99.81 Dependence on supplemental oxygen; Z90.10 Acquired absence of unspecified breast and nipple; Z87.891 Personal history of nicotine dependence; Z89.612 Acquired absence of left leg above knee; Y95 Nosocomial condition; I25.10 Atherosclerotic heart disease of native coronary artery without angina pectoris; Z86.16 Personal history of COVID-19; Z79.01 Long term (current) use of anticoagulants; Z79.899 Other long term (current) drug therapy
CPT/HCPCS: 36415; 71045; 71250; 73590; 80053; 80202; 82800; 83605; 83880; 84484; 85025; 85610; 87040; 87070; 87635; 87798; 87804; 87811; 93005; 93971; 94640; 94667; 94668; 94761; 96365; 96366; 96367; 96368; 96375; 96376; 97110; 97161; 97165; 97530; 99285; J3370

== ENCOUNTER 2023-06-01 10:18 | Inpatient (IN) | payer MEDICARE, SELFPAY ==
[2023-06-01] VITALS (30 sets, daily range): BP systolic 92–120; BP diastolic 64–78; PULSE 90–125; RESP 13–22; TEMP 36.4–36.7; O2SAT 90–100; BMI 23.0; BMI 22.4
--- NOTE | 2023-06-01 10:43 | ECG_ITS ---
The [facility] Test Date: 2023-06-01 Pat Name: SANCHEZ SAMSON Department: Room: - Gender: Female Adult Crossing Guard: : 1945 Requested By: JOHN LENTZ Order Number: [id number] Reading MD: JANET NARAYANAN Measurements Intervals [place] Rate: 105 P: -[id number] MD: -[id number] QRS: 74 QRSD: 84 T: 45 QT: 332 QTc: 393 Interpretive Statements [id number] Atrial fibrillation with rapid ventricular response 8101 Low QRS voltage in limb leads 9140 abnormal rhythm ECG Electronically Signed On 06-03-2023 6:45:50 EST by JANET NARAYANAN
--- NOTE | 2023-06-01 10:43 | XR_ITS ---
The [address] [address] Patient Name: SANCHEZ SAMSON MRN: [id number] date: 1945 Sex: F Assigned Patient Location: ER Current Patient Location: ER Accession/Order Number: [id number] Exam Date: 06/01/2023 10:55 Report Date: 06/01/2023 11:23 At the request of: PJ CORBIN Procedure: XR chest 1V EXAMINATION: XR chest 1V HISTORY: SOB COMPARISON: 04/22/2023 TECHNIQUE: AP portable FINDINGS: LUNGS: Improvement in right upper lobe infiltrate with more focal density now observed extending from the right suprahilar region measuring 4.9 x 3.7 cm. Moderate bibasilar infiltrates partially obscuring the hemidiaphragms and heart borders. VASCULATURE: No increased pulmonary vasculature. PLEURA: No pneumothorax. Elevation of the right hemidiaphragm versus subpulmonic pleural effusion CARDIAC: No cardiomegaly or cardiac silhouette abnormality. MEDIASTINUM: No visible mass or adenopathy. BONES: No fracture or visible bone lesion. OTHER: Calcified breast implants XR/XR chest 1V IMPRESSION: Decrease in right upper lobe infiltrate/mass. Follow-up required to document resolution New bibasilar infiltrates and right pleural effusion, consider pulmonary edema versus pneumonia Electronically authenticated by: LORENA LATIF Date: 06/01/2023 11:23
--- NOTE | 2023-06-01 10:44 | ED.SOB1 ---
HPI - SOB/Dyspnea General Chief Complaint: Shortness of Breath/Dyspnea Stated Complaint: SHORTNESS OF BREATH Time Seen by Provider: 06/01/23 10:40 Source: patient and family Mode of arrival: Wheelchair Limitations: no limitations History of Present Illness HPI Narrative: 78-year-old female presents for difficulty breathing which she has had for 6 days. She is been coughing up yellow phlegm. 2 months ago she had COVID and then developed pneumonia and was hospitalized. She has been home for a month. She has not had a known fever and there is been no hemoptysis. No complaints of vomiting or abdominal pain. Related Data Home Medications Medication Instructions Recorded Confirmed albuterol 90 mcg/actuation aerosol 90 mcg inhalation .q 4 hours PRN 03/27/23 06/01/23 inhaler sob atorvastatin 20 mg tablet 20 mg PO BEDTIME 03/27/23 06/01/23 budesonide-formoterol HFA 160 2 inh inhalation Q12H 03/27/23 06/01/23 mcg-4.5 mcg/actuation aerosol inhaler (Symbicort) docusate sodium 100 mg capsule 100 mg PO BID 03/27/23 06/01/23 duloxetine 60 mg capsule,delayed 60 mg PO DAILY 03/27/23 06/01/23 release gabapentin 800 mg tablet 800 mg PO TID 03/27/23 06/01/23 nitroglycerin 0.4 mg sublingual 0.4 mg sublingual Q5M PRN chest 03/27/23 06/01/23 tablet pain ondansetron 4 mg disintegrating 4 mg PO TID PRN nausea and vomiting 03/27/23 06/01/23 tablet oxycodone 10 mg tablet 10 mg PO Q6H PRN pain 03/27/23 06/01/23 pantoprazole 40 mg tablet,delayed 40 mg PO DAILY 03/27/23 06/01/23 release tizanidine 4 mg tablet 4 mg PO TID PRN muscle spasticity 03/27/23 06/01/23 apixaban 2.5 mg tablet (Eliquis) 2.5 mg PO BID 04/22/23 06/01/23 Previous Rx's Medication Instructions Recorded metoprolol succinate 100 mg 100 mg PO DAILY #30 tabs 04/25/23 tablet,extended release 24 hr Allergies Allergy/AdvReac Type Severity Reaction Status Date / Time vancomycin Allergy Intermediate Rash Verified 06/01/23 10:34 Review of Systems ROS Narrative A ten point review of systems is negative except as noted above. [facility] Medical History (Updated 06/01/23 @ 12:20 by Carlos Salcedo MD) Right lower lobe lung mass ?R91.8 - Other nonspecific abnormal finding of lung field (ICD-10) Acute on chronic diastolic (congestive) heart failure ?I50.33 - Acute on chronic diastolic (congestive) heart failure (ICD-10) HTN (hypertension) ?I10 - Essential (primary) hypertension (ICD-10) Atrial fibrillation with RVR ?I48.91 - Unspecified atrial fibrillation (ICD-10) Acute and chronic respiratory failure with hypoxia ?J96.21 - Acute and chronic respiratory failure with hypoxia (ICD-10) COPD (chronic obstructive pulmonary disease) ?J44.9 - Chronic obstructive pulmonary disease, unspecified (ICD-10) Right leg injury ?S89.91XA - Unspecified injury of right lower leg, initial encounter (ICD-10) Pneumonia ?J18.9 - Pneumonia, unspecified organism (ICD-10) Chronic respiratory failure with hypoxia ?J96.11 - Chronic respiratory failure with hypoxia (ICD-10) Alcohol abuse ?F10.10 - Alcohol abuse, uncomplicated (ICD-10) New onset a-fib ?I48.91 - Unspecified atrial fibrillation (ICD-10) COVID-19 ?U07.1 - COVID-19 (ICD-10) HLD (hyperlipidemia) ?E78.5 - Hyperlipidemia, unspecified (ICD-10) PAD (peripheral artery disease) ?I73.9 - Peripheral vascular disease, unspecified (ICD-10) Oxygen dependent ?Z99.81 - Dependence on supplemental oxygen (ICD-10) Surgical History (Updated 04/22/23 @ 14:44 by Vanita Maloney) History of carpal tunnel surgery ?Z98.890 - Other specified postprocedural states (ICD-10) H/O: hysterectomy ?Z90.710 - Acquired absence of both cervix and uterus (ICD-10) Amputated left leg ?S88.912A - Complete traumatic amputation of left lower leg, level unspecified, initial encounter (ICD-10) Social History Within the past year, how often did you have a drink containing alcohol: 4 or more times a week Within the past year, how many standard drinks containing alcohol did you have on a typical day: 3 or 4 Within the past year, how often did you have six or more drinks on one occasion: weekly Total score: 5 Score interpretation: A score of 3 or more indicates drinking is likely to affect patient's safety. Smoking status: Former smoker Highest level of school completed/degree received: high school graduate Do you think of yourself as: straight/heterosexual Gender Identity: female Exam Narrative Exam Narrative: Nurses note and vital signs reviewed and patient is not hypoxic. General: The patient appears dyspneic. She is in no acute respiratory distress. Skin: Warm, dry, no pallor noted. There is no rash noted. Head: Normocephalic, atraumatic Eye: Normal conjunctiva, no drainage Ears, Nose, Mouth, and Throat: oral mucosa is moist. Nares patent. Cardiovascular: Regular Rate and Rhythm, not tachycardia Respiratory: Breath sounds are equal. She has bilateral rhonchi Back: non-tender GI: Soft and nontender Musculoskeletal: The patient has no evidence of calf tenderness, no pitting edema, symmetrical pulses noted bilaterally Neurological: A&O, normal speech Psychiatric: Cooperative Constitutional Vital Signs, click to edit/add: Last Vital Signs Temp 98.1 F 06/01/23 10:27 Pulse 97 H 06/01/23 11:20 Resp 16 06/01/23 11:20 BP 106/64 06/01/23 10:30 Pulse Ox 92 L 06/01/23 11:20 O2 Del Method Nasal Cannula 06/01/23 11:01 O2 Flow Rate 3 06/01/23 11:01 Course Vital Signs Vital signs: Vital Signs Temperature 98.1 F 06/01/23 10:27 Pulse Rate 111 H 06/01/23 10:27 Respiratory Rate 16 06/01/23 10:27 Blood Pressure 106/64 06/01/23 10:27 Pulse Oximetry 90 L 06/01/23 10:27 Oxygen Delivery Method Nasal Cannula 06/01/23 10:27 Oxygen Delivery Flow Rate 3 06/01/23 10:27 Temperature 98.1 F 06/01/23 10:27 Pulse Rate 97 H 06/01/23 11:20 Respiratory Rate 16 06/01/23 11:20 Blood Pressure 106/64 06/01/23 10:30 Pulse Oximetry 92 L 06/01/23 11:20 Oxygen Delivery Method Nasal Cannula 06/01/23 11:01 Oxygen Delivery Flow Rate 3 06/01/23 11:01 MDM - SOB/Dyspnea MDM Narrative Medical decision making narrative: Pneumonia is identified. Blood cultures were obtained and she was given IV antibiotic and she is being admitted. Findings are discussed with the patient's and her family. Differential Diagnosis Differential diagnosis: Likely acute exacerbation of chronic obstructive airways disease, congestive heart failure, community acquired pneumonia and other (COVID, influenza) Lab Data Attestation: I reviewed the patient's lab results. Labs: Lab Results 06/01/23 Range/Units 10:35 WBC 6.8 (4.0-11.0) 10^3/uL RBC 3.59 L (4.20-5.40) 10^6/uL Hgb 11.0 L (12.0-16.0) g/dL Hct 35.9 L (36.0-48.0) % MCV 100.0 H (81.0-99.0) fL MCH 30.6 (26.7-34.0) pg MCHC 30.6 (29.9-35.2) g/dL RDW 14.9 (11.0-15.0) % Plt Count 318 (150-450) 10^3/uL MPV 10.2 (9.5-13.5) fL Neut % (Auto) 67.6 (43.0-75.0) % Lymph % (Auto) 21.9 (20.5-60.0) % Converse % (Auto) 8.4 (1.7-12.0) % Eos % (Auto) 1.2 (0.9-7.0) % Baso % (Auto) 0.6 (0.2-2.0) % Neut # (Auto) 4.6 (1.4-6.5) 10^3/uL Lymph # (Auto) 1.5 (1.2-3.8) 10^3/uL Converse # (Auto) 0.6 (0.3-0.8) 10^3/uL Eos # (Auto) 0.1 (0.0-0.7) 10^3/uL Baso # (Auto) 0.0 (0.0-0.1) 10^3/uL Abs Immat Gran (auto) 0.02 (0.00-0.03) 10^3/uL Imm/Tot Granulo (auto) 0.3 (0.0-0.5) % Sodium 141 (136-145) mmol/L Potassium 4.0 (3.5-5.1) mmol/L Chloride 106 (98-107) mmol/L Carbon Dioxide 25.7 (21.0-32.0) mmol/L Anion Gap 13.3 BUN 7.0 (7.0-18.0) mg/dL Creatinine 0.83 (0.55-1.02) mg/dL Est GFR ( Amer) >60 (>=60) Est GFR (Non-Af Amer) >60 (>=60) BUN/Creatinine Ratio 8.4 Glucose 122 H (74-106) mg/dL Calcium 9.0 (8.5-10.1) mg/dL Troponin I High Sens 7.7 (4.0-51.3) pg/mL Imaging Data Chest x-ray: Radiologist's impression: ITS Impressions Chest X-Ray 06/01/23 10:43 IMPRESSION: Decrease in right upper lobe infiltrate/mass. Follow-up required to document resolution New bibasilar infiltrates and right pleural effusion, consider pulmonary edema versus pneumonia Electronically authenticated by: LORENA LATIF Date: 06/01/2023 11:23 ECG Data Attestation: I personally reviewed and interpreted this ECG as follows: (EKG on my interpretation shows atrial fibrillation with a rate 105.) Discharge Plan Discharge Chief Complaint: Shortness of Breath/Dyspnea Clinical Impression: Community acquired pneumonia Patient Disposition: Admitted As Inpatient Time of Disposition Decision: 12:20 Condition: Good
[2023-06-01 10:52] LABS: Adenovirus NOT DETECTED (NOT DETECTE); Bordetella parapertussis NOT DETECTED (NOT DETECTE); Coronavirus 229E NOT DETECTED (NOT DETECTE); Coronavirus HKU1 NOT DETECTED (NOT DETECTE); Coronavirus NL63 NOT DETECTED (NOT DETECTE); Coronavirus OC43 NOT DETECTED (NOT DETECTE); Human Metapneumovirus NOT DETECTED (NOT DETECTE); Human Rhinovirus/Enterovirus NOT DETECTED (NOT DETECTE); Influenza A NOT DETECTED (NOT DETECTE); Influenza B NOT DETECTED (NOT DETECTE); Mycoplasma pneumoniae NOT DETECTED (NOT DETECTE); Parainfluenza Virus 1 NOT DETECTED (NOT DETECTE); Parainfluenza Virus 2 NOT DETECTED (NOT DETECTE); Parainfluenza Virus 3 NOT DETECTED (NOT DETECTE); Parainfluenza Virus 4 NOT DETECTED (NOT DETECTE); Respiratory Syncytial Virus NOT DETECTED (NOT DETECTE); SARS-CoV-2 NOT DETECTED (NOT DETECTE)
[2023-06-01 10:53] LABS: Basophils Percent Auto 0.6 % (0.2-2.0); Eosinophils Absolute Auto 0.1 10^3/uL (0.0-0.7); Eosinophils Percent Auto 1.2 % (0.9-7.0); Hematocrit 35.9 % (36.0-48.0); Immature Granulocytes Abs Auto 0.02 10^3/uL (0.00-0.03); Immature Granulocytes Pct Auto 0.3 % (0.0-0.5); Lymphocytes Absolute Auto 1.5 10^3/uL (1.2-3.8); Lymphocytes Percent Auto 21.9 % (20.5-60.0); Mean Corpuscular HGB Conc 30.6 g/dL (29.9-35.2); Mean Corpuscular Hemoglobin 30.6 pg (26.7-34.0); Mean Platelet Volume 10.2 fL (9.5-13.5); Monocytes Absolute Auto 0.6 10^3/uL (0.3-0.8); Monocytes Percent Auto 8.4 % (1.7-12.0); Neutrophils Absolute Auto 4.6 10^3/uL (1.4-6.5); Neutrophils Percent Auto 67.6 % (43.0-75.0); Platelet Count 318 10^3/uL (150-450); Red Blood Count 3.59 10^6/uL (4.20-5.40); Red Cell Distribution Width 14.9 % (11.0-15.0); White Blood Count 6.8 10^3/uL (4.0-11.0)
[2023-06-01] MEDS: ALBUTEROL SULFATE 2.5 MG/3 ML VIAL NEB IH (11:06)
--- OUTSIDE RECORDS SUMMARY | 2023-06-01 11:07 | XMS_ITS | CCD ---
Author Name Unknown Address [address] [place] [address] Organization [facility] Care Team Providers Care Otologist Name Role Phone SELVIN, DR DORA Buenrostro [...] LENTZ, DR JOHN Brown Primary Care Unavailable STRATHMERE, DR LORENA [employer] Unavailable CLINKER, HEMANT [...] [facility] Unav ailable Delvin, Dr. Sno Attending Unavailable Abhijeet, Dr. John Melgoza [facility] Palomav ailJohn Vick Unavailable Margy Olivas Unavailable Margy Olivas Attending Unavailable Margy Olivas Admitting Unavailable John Lentz Primary Care Unavailable John Lentz MD Primary Care Provider ADELAIDA HARGROVE Attending Unavailable JOHN LENTZ Primary Care Unavaila OMKAR Jorgensen Attending Unavailable Allergies Allergy Classification Reported Allergen(s) Allergy Type Date of Onset Reaction(s) Facility (15 sources) Bacitracin; Translations: [BACITRACIN] Drug Allergy 07-19-19 21 Unknown [facility] Repository (2 sources) Neomycin; Translations: [NEOMYCIN] Drug Allergy 07-19-19 21 [facility] Repository (3 sources) Vancomycin; Translations: [VANCOMYCIN] Drug Allergy 01-17-20 15 [facility] Repository (1 source) Polymyxin B Drug allergy (disorder) 07-19-19 21 [facility] Repository (20 sources) Vancomycin; Translations: [vancomycin] Drug Allergy 07-21-19 14 [facility] (20 sources) Aminoglycosides (Antibiotic) Propensity to adverse reactions Unknown [facility] Other (9 sources) Bacitracin Drug Allergy Unknown [facility] Other (20 sources) Neomycin Drug Allergy Unknown [facility] Other (20 sources) Polymyxin B Drug Allergy Unknown [facility] Other (15 sources) Contrast media Propensity to adverse reactions 07-21-19 14 Unknown [facility] Other (15 sources) Erythromycin Drug Allergy Unknown [facility] Other (15 sources) fluticasone / salmeterol Drug Allergy 09-11-19 16 Unknown [facility] Other (14 sources) influenza A virus (H1N1) antigen / influenza A virus (H3N2) antigen / influenza B virus antigen Drug Allergy Comment:Flu Injection [facility] Other (15 sources) traMADol Drug Allergy 10-17-19 15 Unknown [facility] Other (15 sources) Advair Diskus *ANTIASTHMATIC AND BRONCHODILATOR AG Propensity to adverse reactions Unknown [facility] Other (7 sources) patient allergy list reviewed by nurse or physicia Propensity to adverse reactions 09-22-19 18 Comment:Done [facility] Other (15 sources) Dyes Propensity to adverse reactions Comment:CT DYE [facility] Other (7 sources) Allergies Reconciled Propensity to adverse reactions Unknown [facility] Other (15 sources) TraMADol & Dietary Manage Prod *ANALGESICS - OPIOI Propensity to adverse reactions Unknown [facility] Other (15 sources) Vaccine product containing Influenza virus antigen (medicinal product) Drug allergy 03-03-20 17 Unknown [facility] Other (15 sources) Contraindication to Flu Injection Propensity to adverse reactions 08-18-19 18 Comment:advers e rxn/side effects [facility] Other (1 source) Aminoglycosides (Antibiotic) Drug allergy (disorder) 10-25-19 [facility] Repository (1 source) Vancomycin Drug Allergy 10-25-19 [facility] Repository (1 source) Flucelvax Quadrivalent Drug allergy Comment:Flu Injection [facility] Other (1 source) POLYMYXIN B SULFATE-HC; Translations: [POLYMYXIN B SULFATE-HC] Propensity to adverse reactions to drug (disorder) 08-29-19 [facility] Repository Medications Current Medications Medication Drug Class(es) Dates Sig (Normalized) Sig (Original) [id number] 60 actuat albuterol 0.09 mg/actuat metered dose inhaler (20 sources) beta2-Adrenergic Agonist Start: 04-29-2023 take 2 puff(s) by inhalation every four hours as needed Albuterol Sulfate HFA 108 (90 Base) MCG/ACT 2 puff Inhalation every 4 hrs prn Apr, Active take 1 puff(s) by in halation every four hours as needed Ventolin HFA 108 (90 Base) MCG/ACT 1 puf f as needed Inhalation every 4 hrs Active [...] / ipratropium bromide 0.167 mg/ml inhalation solution (20 sources) Anticholinergic, beta2-Adrenergic Agonist Start: 05-14-2020 take 3 mL by inhalation four times daily Ipratropium-Albuterol 0.5-2.5 (3) MG/3ML 3 ml Inhalation Four times a day DX COPD 496 for 30 days Apr, Active apixaban 2.5 mg oral tablet (6 sources) Factor Xa Inhibitor take 1 tablet by mouth every twelve hours Eliquis 2.5 MG 1 tablet twice a day Active aspirin 81 mg delayed release oral [...] 0 Refills: 0 Ordered: 08-Apr-2021 DO Active cephalexin 500 mg oral capsule (7 sources) Cephalosporin Antibacterial take 1 capsule by mouth every eight hours Cephalexin 500 MG 1 capsule Orally every 8 hrs for 5 days Active ciprofloxacin 3 mg/ml ophthalmic solution (3 sources) Quinolone Antimicrobial Start: 09-23-19 23 Ciprofloxacin HCl 0.3 % 1 application into the lower eyelid of affected eye Ophthalmic tid for 5 day(s) August, Active clopidogrel 75 mg oral tablet (20 sources) P2Y12 Platelet Inhibitor Start: 09-12-19 22 take 1 tablet by mouth once daily [...] Active Start: 05-26-2021 take 1 capsule by [facility] twice daily DULoxetine HCl - 30 MG Oral Capsule Delayed Release Particles TAKE 1 CAPSULE TWICE DAILY. Quantity: 0 Refills: 0 Ordered: 26-May-2021 DO Start : 26-May-2021 Active take 1 capsule by [facility] every twenty-four hours Cymbalta 60 MG 1 capsule Orally Once a day for 90 days Active fluconazole 150 mg oral tablet (6 sources) Azole Antifungal Start: 04-29-2023 Fluconazole 150 MG 1 tablet Orally for 10 day(s) Apr, Active furosemide 40 mg oral tablet (6 sources) Loop Diuretic take 1 tablet by mouth every twenty-four hours Furosemide 40 MG 1 tablet once a day Active hydrOXYzine pamoate 25 mg oral capsule (20 sources) Antihistamine take 1 capsule by mouth every eight hours hydrOXYzine Pamoate 25 MG 1 capsule as needed Orally every 8 hrs for 30 day(s) Active Incruse Ellipta 62.5 MCG/INH (20 sources) take 1 puff(s) by mouth once daily Incruse Ellipta 62.5 MCG/INH INHALE 1 PUFF BY MOUTH EVERYDAY Inhalation for 30 Active levoFLOXacin 500 mg oral tablet (4 sources) Quinolone Antimicrobial Start: 09-24-2022 take 1 tablet by mouth every twenty-four hours levoFLOXacin 500 MG 1 tablet Orally Once a day for 10 days Sep, Active Start: 06-01-2022 take 1 tablet by [facility] th every twenty-four hours levoFLOXacin 500 MG 1 tablet Orally Once a day for 5 days May, Active lisinopril 2.5 mg oral tablet (20 sources) Angiotensin Converting Enzyme Inhibitor Start: 08-08-2021 take 1 tablet by mouth once daily lisinopril 2.5 mg tablet Take 1 tablet (2.5 mg) by mouth once daily. 0 08/08/2021 Active LORazepam 0.5 mg oral tablet (7 sources) Benzodiazepine Start: 04-27-2023 take 1 tablet by mouth twice daily as needed Ativan 0.5 MG 1 tab Orally bid prn for 30 days Apr, Active 24 hr metoprolol succinate 25 mg extended release oral tablet (6 sources) beta-Adrenergic Kodi take 1 tablet by mouth every twenty-four hours Metoprolol Succinate ER 25 MG 1 tablet once a day Active multivit-min/ferrou s fumarate (MULTI VITAMIN ORAL) (1 source) take 1 tablet by mouth once daily multivit-min/tadeo us fumarate (MULTI VITAMIN ORAL) Take 1 tablet by mouth once daily. 0 Active Multivitamin Adult - (20 sources) Multivitamin [place] lt - as directed Orally Active mupirocin 0.02 mg/mg topical ointment (7 sources) RNA Synthetase Inhibitor Antibacterial Mupirocin 2 % 1 application Externally Twice a day for 5 days Active nitroglycerin 0.4 mg sublingual tablet (14 sources) Nitrate Vasodilator nitroglyceri n (Nitrostat) 0.[address] 1 tablet (0.4 mg) under the tongue every 5 minutes if needed for chest pain (up to 3 doses as needed for chest pain). 0 Active nystatin 100 unt/mg topical powder (15 sources) Polyene Antifungal Nystatin 1000 00 UNIT/GM [...] August, Active take 1 tablet by [facility] every six hours oxyCODONE HCl 5 MG [...] & 10 x 100mg tablet therapy pack (9 sources) Paxlovid (300/10 0) 20 x 150 MG & 10 x 100MG as directed Orally for 5 days tell pt to hold plavix on paxlovid - thanks Active predniSONE 20 mg oral tablet (13 sources) Start: take 2 tablets by mouth every twenty-four hours predniSONE 20 MG 2 tablets Orally Once a day for 5 days tell pt to hold plavix on paxlovid - thanks Feb, Active Start: 06-01-2022 take 2 tablets by mo [facility] every twenty-four hours predniSONE 20 MG 2 tablets Orally Once a day for 5 days 06 Feb, 2023 Active spironolactone 25 mg oral tablet (14 [...] DO Active tiZANidine 4 mg oral tablet (19 sources) Central alpha-2 Adrenergic Agonist take 1 [...] guaiFENesin 600 mg extended release oral tablet (20 sources) Start: 05-14-2020 take 1 tablet by [...] Translations: [Other specified counseling] Episodic Cardiac dysrhythmias (20 sources) Cardiac arrhythmia; Translations: [Unspecified cardiac dysrhythmia] [...] or chronic Episodic Chronic ulcer of skin (20 sources) Non-pressure ulcer of thigh; Translations: [Non-pressure [...] disease (20 sources) Atherosclerotic heart disease of [place] coronary artery without angina pectoris; Translations: [Coronary arteriosclerosis] Onset: 08-25-2018 03-01-2023 Chronic Coronary atherosclerosis and other heart disease (10 sources) Stented coronary artery; Translations: [Percutaneous transluminal coronary angioplasty status] Onset: 02-26-2023 03-01-2023 Episodic Coronary atherosclerosis and other heart disease (1 source) Coronary atherosclerosis and other heart disease; Translations: [Atherosclerosis of [place] arteries of extremities with intermittent claudication, right leg] Onset: 11-17-2022 Disorders of lipid metabolism (20 sources) Pure hypercholesterolemia, unspecified; Translations: [Hyperlipidemia] Onset: 07-20-2013 03-01-2023 Chronic E Codes: Unspecified (1 source) Nosocomial condition Episodic Esophageal disorders (5 sources) Gastro-esophageal reflux disease [...] 07-20-2013 Chronic Other aftercare (1 source) Other longwall foreman (current) drug therapy; Translations: [OTH SKILLED NURSING CURRENT DRUG THERAPY] Onset: 11-06-2020 Episodic Other aftercare (7 sources) Long-term current use of inhaled steroid; Translations: [director merit system (current) use of inhaled steroids] Episodic Other aftercare (7 sources) Long-term current use of anticoagulant; Translations: [director merit system (current) use of anticoagulants] Episodic Other bone disease and musculoskeletal deformities (6 sources) Acquired absence of left leg above knee; Translations: [ACQUIRED ABSENCE LT LEG ABOVE KNEE] Onset: 10-15-2020 Chronic Other bone disease and musculoskeletal deformities (20 sources) History of amputation of left leg [...] constipation; Translations: [Drug induced constipation] Episodic Other gastrointestinal disorders (1 source) Other constipation Episodic Other injuries and conditions due to [...] Onset: 08-23-2020 Chronic Other nervous system disorders (20 sources) Chronic pain; Translations: [Other chronic pain] Chronic Other nervous system disorders (20 sources) Mononeuropathy of lower limb; Translations: [Unspecified mononeuropathy of left lower limb] Chronic Other nervous system disorders (5 sources) Other chronic pain Chronic Other nervous [...] caused by tuberculosis or sexually transmitted disease) (8 sources) Pneumonia; Translations: [Pneumonia, unspecified organism] Episodic [...] Episodic Comment on above: Quit cigs 2009; Skin and subcutaneous tissue infections (1 source) Cellulitis of right lower limb Episodic Spondylosis; intervertebral disc disorders; other back [...] [CONTACT W/AND (SUSP) EXPOS COVID-19] Onset: 10-04-2020 Urinary tract infections (1 source) Urinary tract infection, site not specified Episodic Past or Other Problems Problem Classification Problem [...] Onset: 12-17-2016 Episodic Other aftercare (1 source) director merit system (current) use of anticoagulants; Translations: [SKILLED NURSING CURRNT USE ANTICOAGULANTS] Onset: 07-05-2020 Episodic Other [...] Episodic Unclassified (1 source) Onset: 03-01-2023 03-01-2023 Unclassified (1 source) Vaginal yeast infection B37.31 Viral infection (1 source) COVID-19 Results Test Name Value Interpretation Reference Range Facility Office Visiton 04-12-2023 Follow-up visit [id number] Sanchez Merritt 1945 F Date Provider Department Center 04/12/2023 [id number]-OMKAR VICTOR C[facility] No family history on file Level of Service:76586 NM OFFICE/OUTPATIENT ESTABLISHED MOD MDM 30 MIN Normal [facility] US UNI ankle/arm indiceson 0 12-17-2022 US UNI ankle/arm indices [facility] [place] [address] Ultrasound Report Signed Patient: Sanchez Merritt MR#: [id number] : 1945 Acct:[id number] Age/Sex: 77 / F ADM Date: 11/17/22 Loc: [facility] Room: Type: [facility] Attending Dr: Margy Olivas EARLY CHILDHOOD EDUCATION COORDINATOR-C Ordering Provider: Margy Olivas APRN Date of [...] Lauro Heard MD12/17/2022 2:11 PM Dictation Location: [id number] Tech: Julia Ortegaley Transcribed By: BILLIE 12/17/221410 Dictated By: Lauro Heard MD 12/17/221409 Signed By: 12/17/221410 [facility] LAB Carotid Artery Dupl ex Ultrasounon 04-13-2022 [facility] LAB Carotid Artery Duplex Ultrasoun [address], [address] [place] [address] Vascular Lab Report Carotid Artery Duplex Ultrasound Patient Name: SANCHEZ Regis Melara Physician: [id number] Ludwig South [facility] Study Date: 04/13/2022 Referring ADELAIDA HARGROVE Physician: MRN/PID: [id number] PCP: John Lentz Accession/Order#: [id number] CC Report to: Cooper Arnold Date of : 1945 Technologist: Jillian Gonzalez RD, [facility] Gender: F Technologist 2: Admission Status: Outpatient Location Performed: [facility] Diagnosis/ICD: R09.89-Other specified symptoms and signs involving the circulatory and respiratory systems Indication: CAD, Right CEA, Peripheral Vascular Disease, 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, HTN, Hyperlipidemia, Former Smoker, Ischemic Cardiomyopathy, COPD, PTCA-07/2018 Procedure/CPT: 71914 Cerebrovascular Carotid Duplex scan complete-16044 CONCLUSIONS: Right Carotid: Findings are consistent with [...] cm/s Right Left ICA/CCA Ratio 0.5 0.8 92747 Ludwig South MD, FACC Final Normal [facility] VASC LAB Carotid Artery Dupl ex Ultrasoundon 04-13-2022 US.doppler Carotid arteries [facility] DO Work Phone: Height or Weight NOT Doneon 02-26-2022 Fall risk assessment a) No falls within the last year [facility] DO Work Phone: Tobacco use status [facility] b) No [facility] DO Work Phone: Office Visit (Cardiology)on [...] the office. Son identifies himself as Alessandro Hill 1,2 [place]. 2 Patient reports no chest [...] and stenting (more content not included)... Normal [facility] CARDIAC STRESS/REST INJE CTIONon 08-19-2021 [facility] CARDIAC STRESS/REST INJECTION Patient Name: SANCHEZ MERRITT STUDY: MYOCARDIAL PERFUSION STRESS TEST WITH LEXISCAN Performing facility: [facility], [address], [address], [place] [address] [facility] Provider: Tracey Pitt DO, [facility] PCP: Dr. Young Lentz Supervising provider: Ludwig South MD, [facility] INDICATION: CAD; ICM SOB; HISTORY: Gender: F; Age: 76 y/o ; Height: 160.02 cm; Weight: 58.556473 kg. High Cholesterol; CAD; SOB; COPD; Quit smoking 12 years ago. Cardiac catheterization on 2018. PTCA on 2018. COMPARISON: No comparison. ACCESSION NUMBER(S): [id number]; [id number]; [id number] ORDERING CLINICIAN: TRACEY PITT TECHNIQUE: ONE DAY [...] Electronically signed by: GHULAM RIVERA MD Normal [facility] No Panel Informationon 08-19 Normal [facility] DO Work Phone: Office [...] Status:Hold For - Scheduling,Retrospecti ve Authorization; Requested for:[id number]; Radiologist to Determine Optimal Study : Y What are the patient's signs and symptoms? : SOB Health Maintenance PHQ2 Screen Positive; Status:Complete - Retrospective Authorization; Done: [id number] SocHx: Former smoker Tobacco Use Screening; Status:Complete; Done: [id number] Patient Instructions Please bring all medicines, vitamins, [...] of Percutaneous transluminal coronary angioplasty History of WAIST PRESSER carotid History of WAIST PRESSER femoral-popliteal History of Tonsillectomy with adenoidectomy Past [...] HPI. Respiratory: (more content not included)... Normal [facility] Tobacco Screening.on 022 Adult depression screening assessment Yes -[facility] DO Work Phone: Fall risk assessment a) No falls within the last year [facility] DO Work Phone: Tobacco use status [facility] b) No -[facility] DO Work Phone: Tobacco Screening. 2-More than half the days [facility] DO Work Phone: Tobacco Screening. 1-Several days [facility] DO Work Phone: Tobacco Screening. 0-Not at all [facility] DO Work Phone: Tobacco Screening. 3-Nearly every day [facility] DO Work Phone: Tobacco Screening. Somewhat Difficult -[facility] DO Work Phone: Wily 05-23-2021 [facility] SANCHEZ MERRITT ([id number]) 1945 F Date Time Provider Department 05/23/21 [...] interventional pain procedures: Seen pain management in [facility] Did an injection with no relief [...] radicular pain. (more content not included)... Normal [place] CNPNon 05-23-2021 [facility] Telephone (AJ) SANCHEZ MERRITT ([id number]) 1945 F Date Time Provider Department 05/23/21 [...] be called to [facility] in [place]. States it was discussed at last OV. Please advise. Cleopatra King LPN 05/28/2021 11:50 AM Signed Called the patient and advised that normally Lien Hughes LPN 05/28/2021 12:02 PM Signed Tens unit was sent to [facility]. Cleopatra King LPN 05/28/2021 1:25 PM Signed Patient was notified that order was sent to [facility] and they would contact her. Allergies As [...] Encounter Status:Closed by CLEOPATRA KING on 05/28/21 Normal [place] Covid-19 PCR (CVDTBH)on SARS-CoV-2 (COVID-19) RNA MEENAKSHI+probe Ql (Unsp spec) Not detected Normal NOT DETECTED [facility] Comment on above: Result Comment: This test is not yet approved or cleared by the [place] FDA. When there are no FDA-approved or cleared tests available, and other criteria are met, FDA can make tests available under an emergency access mechanism called an Emergency Use Authorization (EUA). The EUA for this test is supported by the Pharmaceutical Process Engineer of Health and Human Service's (HHS's) [...] consistent with SARS-CoV-2. Performed By: #### C [facility] ####[facility] [id number] Aggie XR LSPINE W_OBLS AND FLEX_EX Ton [...] LORENA LATIF Date: 2020-07-02 15:09 Normal [facility] CT CHEST HI RESOLUTIONon CT CHEST [...] JOSIE PARIS Date: 2020-06-18 14:59 Normal [facility] XR CHEST 2 Von 02-29-2020 XR CHEST [...] JOSIE PARIS Date: 2020-02-29 09:04 Normal [facility] Vital Signs Date Time Vital Sign Value Performing Clinician Facility 04-29-2023 13:00-0500 Body height 156.21 cm John Lentz Other [facility] Other 04-29-2023 13:00-0500 Body mass index (BMI) [Ratio] 24.16 kg/m2 John Lentz Other [facility] Other 04-29-2023 13:00-0500 Body weight 58.97 kg John Lentz Other [facility] Other 04-29-2023 13:00-0500 Diastolic blood pressure 76 mm[Hg] John Lentz Other [facility] Other 04-29-2023 13:00-0500 SaO2% (BldA) [Mass fraction] 86 % John Lentz Other [facility] Other 04-29-2023 13:00-0500 Systolic blood pressure 109 mm[Hg] John Lentz Other [facility] Other 04-15-2023 15:45-0500 Body height 156.21 cm John Lentz Other [facility] Other 04-15-2023 15:45-0500 Body mass index (BMI) [Ratio] 24.16 kg/m2 John Lentz Other [facility] Other 04-15-2023 15:45-0500 Body weight 58.97 kg John Lentz Other [facility] Other 04-15-2023 15:45-0500 Diastolic blood pressure 72 mm[Hg] John Lentz Other [facility] Other 04-15-2023 15:45-0500 SaO2% (BldA) [Mass fraction] 95 % John Lentz Other [facility] Other 04-15-2023 15:45-0500 Systolic blood pressure 103 mm[Hg] John Lentz Other [facility] Other 03-01-2023 14:00-0500 Diastolic blood pressure 68 mm[Hg] Adelaida Hargrove MD Work Phone: [facility] 03-01-2023 14:00-0500 Heart rate 68 /min Adelaida Hargrove MD Work Phone: [facility] 03-01-2023 14:00-0500 Systolic blood pressure 110 mm[Hg] Adelaida Hargrove MD Work Phone: [facility] 10-20-2022 13:15-0400 Body height 156.21 cm Margy Olivas Other [facility] Other 10-20-2022 13:15-0400 Body mass index (BMI) [Ratio] 24.16 kg/m2 Margy Olivas Other [facility] Other 10-20-2022 13:15-0400 Body temperature 96.9 [degF] Margy Olivas Other [facility] Other 10-20-2022 13:15-0400 Body weight 58.97 kg Margy Olivas Other [facility] Other 10-20-2022 13:15-0400 Diastolic blood pressure 60 mm[Hg] Margy Olivas Other [facility] Other 10-20-2022 13:15-0400 SaO2% (BldA) [Mass fraction] 93 % Margy Olivas Other [facility] Other 10-20-2022 13:15-0400 Systolic blood pressure 110 mm[Hg] Margy Olivas Other [facility] Other 09-22-2022 10:00-0400 Body height 156.21 cm John Lentz Other [facility] Other 09-22-2022 10:00-0400 Body mass index (BMI) [Ratio] 24.16 kg/m2 John Lentz Other [facility] Other 09-22-2022 10:00-0400 Body weight 58.97 kg John Lentz Other [facility] Other 09-22-2022 10:00-0400 Diastolic blood pressure 68 mm[Hg] John Lentz Other [facility] Other 09-22-2022 10:00-0400 Systolic blood pressure 117 mm[Hg] John Lentz Other [facility] Other 06-01-2022 11:15-0500 Body height 156.21 cm John Lentz Other [facility] Other 06-01-2022 11:15-0500 Body mass index (BMI) [Ratio] 24.16 kg/m2 John Lentz Other [facility] Other 06-01-2022 11:15-0500 Body weight 58.97 kg John Lentz Other [facility] Other 06-01-2022 11:15-0500 Diastolic blood pressure 60 mm[Hg] John Lentz Other [facility] Other 06-01-2022 11:15-0500 SaO2% (BldA) [Mass fraction] 92 % John Lentz Other [facility] Other 06-01-2022 11:15-0500 Systolic blood pressure 102 mm[Hg] John Lentz Other [facility] Other 02-26-2022 15:00-0400 Body height 160.02 cm John Lentz Work Phone: [facility] DO Work Phone: 02-26-2022 15:00-0400 Body mass index (BMI) [Ratio] Medical Reason Not Done John Lentz Work Phone: [facility] DO Work Phone: 02-26-2022 15:00-0400 Diastolic blood pressure 60 mm[Hg] John Lentz Work Phone: [facility] DO Work Phone: 02-26-2022 15:00-0400 Heart rate 80 /min John Lentz Work Phone: [facility] DO Work Phone: 02-26-2022 15:00-0400 Systolic blood pressure 122 mm[Hg] John Lentz Work Phone: [facility] DO Work Phone: 08-19-2021 12:00-0400 72 1 John Lentz Work Phone: [facility] DO Work Phone: Comment on above: [id number] 08-07-2021 14:55-0400 Body height 160.02 cm John Lentz Work Phone: [facility] DO Work Phone: 08-07-2021 14:55-0400 Diastolic blood pressure 68 mm[Hg] John Lentz Work Phone: [facility] DO Work Phone: 08-07-2021 14:55-0400 Heart rate 89 /min John Lentz Work Phone: [facility] DO Work Phone: 08-07-2021 14:55-0400 Systolic blood pressure 114 mm[Hg] John Lentz Work Phone: [facility] DO Work Phone: 08-07-2021 14:55-0400 10 1 John Lentz Work Phone: [facility] DO Work Phone: Comment on above: PHQ-9 TS Encounters Encounter Date Encounter Type Care Provider Facility Start: 05-17-2023 End: 05-17-2023 ambulatory Ojhn Abhijeet Other [facility] Other Start: 05-17-2023 Telephone encounter John Abhijeet [facility] Start: 04-30-2023 End: 04-30-2023 ambulatory John Abhijeet Other [facility] Other Start: 04-30-2023 Telephone encounter John Abhijeet [facility] Start: 04-29-2023 End: 04-29-2023 ambulatory John Abhijeet Other [facility] Other Start: 04-29-2023 Office outpatient vi sit 25 minutes John Abhijeet [facility] Start: 04-29-2023 Telephone encounter John Lentz [facility] Start: 04-27-2023 End: 04-27-2023 ambulatory John Abhijeet Other [facility] Other Start: 04-27-2023 Telephone encounter John Lentz [facility] Start: 04-15-2023 End: 04-15-2023 ambulatory John Abhijeet Other [facility] Other Start: 04-15-2023 Office outpatient vi sit 25 minutes John Abhijeet [facility] Start: 04-14-2023 End: 04-14-2023 ambulatory John Abhijeet Other [facility] Other Start: 04-14-2023 Telephone encounter John Lentz [facility] Start: 04-12-2023 End: 04-12-2023 [address]MK[address] [facility] Start: 04-02-2023 End: 04-02-2023 ambulatory John Lentz Other [facility] Other Start: 04-02-2023 Telephone encounter Johnabimael Lentz [facility] Start: 03-23-2023 (Televisit) Televisit John Abhijeet [facility] Start: 03-23-2023 End: 03-23-2023 ambulatory John Lentz Other [facility] Other Start: 03-22-2023 End: 03-22-2023 ambulatory John Lentz Other [facility] Other Start: 03-22-2023 Telephone encounter John Abhijeet [facility] Start: 03-01-2023 End: 03-01-2023 ambulatory [facility] Start: 03-01-2023 End: 03-01-2023 Office outpatient visit 25 minutes Adelaida Hargrove MD Work Phone: [facility] Comment on above: Arteriosclerosis of coronary artery (Primary Dx); Bilateral carotid bruits; Hyperlipidemia, unspecified hyperlipidemia type; Ischemic cardiomyopathy; Primary hypertension; Stented coronary artery; Chronic obstructive pulmonary disease, unspecified COPD type (CMS/HCC); Wheelchair dependent; Amputation of leg (CMS/HCC); History of right-sided carotid endarterectomy Start: 01-27-2023 End: 01-27-2023 ambulatory John Lentz Other [facility] Other Start: 01-27-2023 Telephone encounter John Abhijeet [facility] Start: 01-25-2023 End: 01-25-2023 ambulatory John Lentz Other [facility] Other Start: 01-25-2023 Telephone encounter John Abhijeet [facility] Start: 01-08-2023 End: 01-08-2023 ambulatory John Lentz Other [facility] Other Start: 01-08-2023 Telephone encounter John Abhijeet [facility] Start: 12-02-2022 End: 12-02-2022 ambulatory John Lentz Other [facility] Other Start: 12-02-2022 Telephone encounter John Lentz [facility] Start: 11-17-2022 End: 11-17-2022 ambulatory Margy Olivas Facility:[facility] Start: 10-20-2022 End: 10-20-2022 ambulatory Margy Olivas Other [facility] Other Start: 10-20-2022 FQHC visit new patient Margy alicia [facility] Start: 09-23-2022 End: 09-23-2022 ambulatory John Lentz Other [facility] Other Start: 09-23-2022 Telephone encounter John Lentz [facility] Start: 09-22-2022 End: 09-22-2022 ambulatory John Lentz Other [facility] Other Start: 09-22-2022 Office outpatient vi sit 25 minutes John Lentz [facility] Start: 09-22-2022 Telephone encounter John Lentz [facility] Start: 08-13-2022 Rx Renewal John Lentz Work Phone: [facility] DO Work Phone: Start: 07-15-2022 End: 07-15-2022 ambulatory John Lentz Other [facility] Other Start: 07-15-2022 Telephone encounter John Lentz [facility] Start: 06-01-2022 End: 06-01-2022 ambulatory John Lentz Other [facility] Other Start: 06-01-2022 Office outpatient vi sit 25 minutes John Lentz [facility] Start: 05-05-2022 End: 05-05-2022 ambulatory John Lentz Other [facility] Other Start: 05-05-2022 Telephone encounter John Lentz [facility] Start: 04-17-2022 Chart Update John Lentz Work Phone: [facility] DO Work Phone: Start: 04-13-[address] Adelaida Griggs ty:[id number] Start: 02-26-2022 Office outpatient vi sit 25 minutes John Lentz Work Phone: [facility] DO Work Phone: Start: 02-26-[address] Adelaida Griggs ty: Start: 12-12-2021 Pre-procedure evalua tion check John Lentz Other [facility] Other Start: 09-11-2021 Rx Renewal John Lentz Work Phone: [facility] DO Work Phone: Start: 09-08-2021 Rx Renewal John Lentz Work Phone: [facility] DO Work Phone: Start: 09-01-2021 Chart Update John Lentz Work Phone: [facility] DO Work Phone: Start: 08-19-[address] Tracey Pitt Facility:[id number] Start: 08-07-2021 Office outpatient vi sit 25 minutes John Lentz Work Phone: [facility] DO Work Phone: Start: 08-07-[address] John Lentz Facility: Start: 07-21-2021 Rx Renewal John Lentz Work Phone: [facility] DO Work Phone: Start: 01-14-[address] DORA Griggs ty:H1 Start: 12-09-2020 End: 12-10-[address] JOHN LENTZ Facility:H1 Start: 11-28-2020 End: 11-28-[address] JOHN LENTZ Facility:H1 Start: 10-29-2020 End: 10-30-[address] DORA BELLA Facility:[facility]1 Start: 10-24-2020 End: 10-24-[address] JOHN LENTZ Facility:[facility]1 Start: 10-15-2020 End: 10-16-[address] DORA BELLA Facility:[facility]1 Start: 10-04-2020 Encounter for preprocedural laboratory examination DR DORA BELLA [facility] Start: 10-01-2020 End: 10-01-[address] DORA [...] Start: 05-19-2016 General examination of patient John Abhijeet Other Amputation of lower limb Chelsy Lentz [...] DTaP/Tdap/Td Vaccines (2 - Td or Tdap) [facility] Start: 11-08-2023 End: 11-08-2023 Patient encounter procedure 11/08/2023 1:15 PM EDT Office Visit [facility] [address] [facility] [address] [place] [address] Adelaida Hargrove MD [address] [place] [address] [address] [place] [address] [facility] Start: 03-01-2023 FUV, Provider: Adelaida Hargrove, Status: Pen, Time: 2:00 PM FUV, Provider: Adelaida Hargrove, Status: Pen, Time: 2:00 PM [facility] DO Work Phone: Start: 03-01-2023 End: 03-01-2024 Comprehensive metabolic 2000 panel - Serum or Plasma Comprehensive Metabolic Panel Lab Routine Arteriosclerosis of coronary artery Primary hypertension Stented coronary artery Expected: 03/01/2023 (Approximate), Expires: 03/01/2024 [facility] Service Area Work Phone: Comment on above: Expected: 03/01/2023 (Approximate), Expires: 03/01/2024 Start: 03-01-2023 End: 03-01-2024 Lipid 1996 panel - Serum or Plasma Lipid Panel Lab Routine Hyperlipidemia, unspecified hyperlipidemia type Expected: 03/01/2023 (Approximate), Expires: 03/01/2024 [facility] Work Phone: Comment on above: Expected: 03/01/2023 (Approximate), Expires: 03/01/2024 Start: 12-25-2022 Influenza vaccination Influenza Vacc ine (#1) [facility] Start: 04-13-2022 CAROTID, Provider: [facility] 01,[id number], Status: Pen, Time: 10:45 AM CAROTID, Provider: [facility] 01,[id number], Status: Pen, Time: 10:45 AM [facility] Work Phone: Start: 04-13-2022 ECHO, Provider: [facility] 01,[id number], Status: Pen, Time: 10:45 AM ECHO, Provider: [facility] 01,[id number], Status: Pen, Time: 10:45 AM -[facility] DO Work Phone: Start: 01-29-2022 FUV, Provider: Adelaida Hargrove, Status: Pen, Time: 1:00 PM FUV, Provider: Adelaida Hargrove, Status: Pen, Time: 1:00 PM -[facility] DO Work Phone: Start: 08-19-2021 STRESS NUC, Provider : [facility] NUCLEAR 01,[id number], Status: Pen, Time: 12:00 PM STRESS NUC, Provider: [facility]UCLE[facility] 01,[id number], Status: Pen, Time: 12:00 PM -[facility] DO Work Phone: Start: 08-07-2021 FUV, Provider: Tracey Pitt, Status: Pen, Time: 2:45 PM FUV, Provider: Tracey Pitt, Status: Pen, Time: 2:45 PM -[facility] DO Work Phone: Start: 06-08-2021 COVID-19 Vaccine (4 - Moderna series) COVID-19 Vaccine (4 - Moderna series) [facility] Start: 11-24-2018 Pneumococcal Vaccine : 65+ Years (2 - PPSV23 or PCV20) Pneumococcal Vaccine: 65+ Years (2 - PPSV23 or PCV20) [facility] Start: 1993 Zoster Vaccines (1 o f 2) Zoster Vaccines (1 of 2) [facility] Start: 1961 Diabetes mellitus screening Diabetes Screening [facility] Start: 1961 Hepatitis C screening Hepatitis C Sc reening [facility] Start: 1943 Lipid panel Lipid Panel [facility] Start: 1943 Medicare Annual Wellness Visit Medicare Annual Wellness Visit (AWV) [facility] Start: 1943 Screening for osteoporosis Bone Density Scan [facility] Immunizations Immunization Date Immunization Notes Care Provider Emmanuel kaba 04-13-2021 Pfizer-BioNTech COVID-19 Vacc 30 MCG/0.3ML Intramuscular Suspension John Lentz Work Phone: [facility] 250 DO Work Phone: 07-02-2020 Moderna COVID-19 Vaccine 100 MCG/0.5ML Intramuscular Suspension John Lentz Work Phone: [facility] 250 DO Work Phone: 06-03-2020 Moderna COVID-19 Vaccine 100 MCG/0.5ML Intramuscular Suspension John Lentz Work Phone: [facility] 250 DO Work Phone: 09-29-2018 pneumococcal conjuga te vaccine, 13 valent John Lentz Work Phone: [facility] 250 DO Work Phone: 08-16-2018 tetanus toxoid, redu luis diphtheria toxoid, and acellular pertussis vaccine, adsorbed Adelaida Hargrove MD Work Phone: [facility] Work Phone: 02-16-2017 influenza virus vaccine, split virus (incl. purified surface antigen) John Lentz Other [facility] Other 02-16-2017 influenza, high dose seasonal, preservative-free John Kevin Lentz Work Phone: [facility] [employer] DO Work Phone: 02-16-2017 influenza virus vaccine, unspecified formulation Adelaida Hargrove MD Work Phone: [facility] Work Phone: 01-24-2017 influenza virus vaccine, unspecified formulation John Lentz Work Phone: [facility] [place] [employer] DO Work Phone: 01-25-2016 influenza virus vaccine, split virus (incl. purified surface antigen) John Lentz Other [facility] Other 01-25-2016 influenza, high dose seasonal, preservative-free John Lentz Work Phone: [facility] [employer] DO Work Phone: 03-02-2015 influenza, injectabl e, quadrivalent, preservative free John Lentz Work Phone: [facility] DO Work Phone: 03-02-2015 tetanus and diphther ia toxoids, adsorbed, preservative free, for adult use (5 Lf of tetanus toxoid and 2 Lf of diphtheria toxoid) John Lentz Other [facility] Other 02-12-2009 pneumococcal conjuga te vaccine, 7 valent John Lentz Work Phone: [facility] [place] [employer] DO Work Phone: 01-30-2009 influenza virus vaccine, whole virus John Lentz Work Phone: [facility] [place] [employer] DO Work Phone: Payers Date Payer Category Payer Unknown [id number] 2016 Unknown 2016 Unknown [id number] 2008 Medicare MEDICARE MEDICAR E PART A AND B [id number] 2008-Present [address] [place] [address] [id number] 1959 Medicare [id number] 1959 Self-pay 1959 Unknown [id number] 1943 Unknown [id number] [id number] 1943 Unknown [id number] 2.16.840.1.351716.3.579.2.593 1943 Unknown [id number] 2.16.840.1.368527.3.579.2.593 1943 Unknown [id number] 2.16.840.1.905093.3.579.2.593 1943 Unknown [id number] 2.16.840.1.588273.3.579.2.593 1943 Unknown [id number] 2.16.840.1.574512.3.579.2.593 1943 Unknown [id number] 2.16.840.1.150956.3.579.2.593 1943 Unknown [id number] 2.16.840.1.517742.3.579.2.593 1943 Unknown [id number] 2.16.840.1.768803.3.579.2.593 1943 Unknown [id number] 2.16.840.1.838233.3.579.2.593 1943 Unknown [id number] 2.16.840.1.818015.3.579.2.593 1943 Unknown [id number] 2.16.840.1.245092.3.579.2.593 1943 Unknown [id number] 2.16.840.1.524929.3.579.2.593 1943 Unknown [id number] 2.16.840.1.743805.3.579.2.593 1943 Unknown [id number] 2.16.840.1.779687.3.579.2.356 1943 Unknown [id number] 2.16.840.1.338520.3.579.2.356 1943 Unknown [id number] 2.16.840.1.253047.3.579.2.1068 1943 Unknown [id number] 2.16.840.1.735557.3.579.2.1068 1943 Unknown [id number] 2.16.840.1.502670.3.579.2.1244 Unknown [id number] 2.16.840.1.359979.3.579.2.593 Unknown [id number] 2.16.840.1.551773.3.579.2.593 Unknown [id number] 2.16.840.1.844705.3.579.2.531 Social History Date Type Detail Facility Start: 08-07-2021 End: 03-01-2023 Daily caffeine consumption, 2-3 servings a day Daily caffeine consumption, 2-3 servings a day [facility] Comment on above: Quit cigs 2009; 1 cup of coffee harshil y; Start: 08-07-2021 End: 03-01-2023 Sex Assigned At [facility] Start: 03-01-2023 Tobacco smoking stat us MOIS Ex-smoker [facility] End: 04-26-2009 History of tobacco use Current smoker [facility] Work Phone: End: 04-26-2009 History of tobacco use Cigarette Smoker [facility] Work Phone: Start: 03-01-2023 Tobacco use and exposure Smokeless tobacco non-user [facility] Work Phone: Start: 03-01-2023 Alcohol intake Lifetime non-d annemarie (finding) [facility] Work Phone: Start: 1945 [facility] Start: 02-19-2023 End: 03-01-2023 Exposure to SARS-CoV-2 (event) Not sure [facility] Functional Status Date Assessment Result Facility 08-07-2021 PHQ-9 [id number] Moderate (10-14) [facility] 250 DO Work Phone: Clinical Notes 07-25-2018 to 05-17-2023 Note Date & Type Note Facility 05-17-2023 Evaluation note Encounter Date Diagnosis Assessment Notes Apr, Chronic obstructive pulmonary disease, unspecified COPD type (ICD-10 - J44.9) [facility] Other 01-05-2024 Evaluation note* Encounter Date Diagnosis Assessment Notes Treatment Notes Treatment Clinical Notes Apr, Chronic obstructive pulmonary disease, unspecified COPD type (ICD-10 - J44.9) [facility] Other 01-04-2024 Evaluation note* Encounter Date Diagnosis Assessment Notes Treatment Notes Treatment Clinical Notes Apr, Chronic pain (ICD-10 - G89.29) [facility] Other 01-04-2024 Evaluation note* Encounter Date Diagnosis Assessment Notes Treatment Notes Treatment Clinical Notes Apr, Chronic obstructive pulmonary disease, unspecified COPD type (ICD-10 - J44.9) Referral entered to Dr. Genny Salinas office, per family request. Apr, Vaginal yeast infection (ICD-10 - B37.31) rx send per pt request. Apr, Chronic pain (ICD-10 - G89.29) has chronic pain due to AKA history. Sees pain managment in [place] Apr, Pneumonia, unspecified organism (ICD-10 - J18.9) Pulmonolary consult. Improving. 04 Curtis, 2024 Nosocomial condition (ICD-10 - Y95) Apr, Atrial fibrillation with RVR (ICD-10 - I48.91) presently in regular rhythm [facility] Other 12-21-2023 Evaluation note* Encounter Date Diagnosis Assessment Notes Treatment Notes Treatment Clinical Notes Mar, Acute UTI (ICD-10 - N39.0) UA will be taken to hospital Pt cannot provide UA presently. We suspect UTI due to her recent confustion. Order printed and given to daughter. She will take it to [facility] when she goes to work tomorrow. Mar, Cellulitis of right leg (ICD-10 - L03.115) Patient is advised to stay well hydrated. Finish the full antibiotic until gone. Patient is advised to add a probiotic to their diet such as yogurt. Follow up to let us know if symptoms have improved Mar, Chronic constipation (ICD-10 - K59.09) samples of miralax given [facility] Other 12-20-2023 Evaluation note* Encounter Date Diagnosis Assessment Notes Treatment Notes Treatment Clinical Notes Mar, Confusion (ICD-10 - R41.0) [facility] Other 12-18-2023 [facility]-stable, concerns for hypotension given first BP in office [facility]-recovered EF per recent echo 03/2023 EF 55-60% -NYHA unable to asses given wheel chair bound and left AKA< she does state she is able to do basic ADLs -GDMT: stop lisionpril given hypotension, stop coreg, Will start toprol xl 25mg daily and do event monitor to watch for RVR -prioritizing rate control at this time -continue aldactone 25mg, start toprol xl 25mgUnThe [facility]12-18-2023 Note-s/[facility] Note-noted in [place], [facility] 12-18-20[facility] Note-s/p stent to RCA and ostial left main in 2019 -will increase to high intensity statin 40mg lipitor given she is done drinking -stop ASA and start eliquis 2.5mg BID for AF, ct plavix -noted to not be a good candidate for CABG given resp diseaseUnThe Christ Hospital12-18-2023 Note- stable, she is on supplemental O2 as needed - she may not be a great candidate for amiodaroneUniversWilson [facility]12-18-2023 NoteNew patient here to establish care. She was recently discharged from [facility] for new onset afib. AC was not started. She has a right carotid stent that was placed years ago at [facility]. She does not still follow with vascular surgeon. She is transferring cardiology care from [facility] to [place]. Review of Systems Cardiovascular: Positive for dyspnea on exertion and leg swelling (RLE). Respiratory: Positive for cough and shortness of breath. All other systems reviewed and are negative.[facility] 04-12-2023 NoteUT Electrophysiology Consult Note Reason [...] follow-up with cardiology and is switching to [facility] She was admitted to [facility] with new onset A-fib, alcohol withdrawal which was treated with benzodiazepines, sepsis, respiratory failure, COPD exacerbation all likely due to COVID infection, she was discharged 04/01/2023. 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 She states she has stopped drinking since [...] fibrillation (CMS/HCC) COPD (chronic obstructive pulmonary disease) (CMS/[facility]) Hyperlipidemia PSH: No past surgical history on [...] feeling safe in r (more content not included)...[facility]11-28-2023 Evaluation note* Encounter Date Diagnosis Assessment [...] such as patterns or other associated symptoms [facility] Other 11-27-2023 Evaluation note* Encounter Date Diagnosis Assessment Notes Treatment Notes Treatment Clinical Notes Feb, Chronic pain (ICD-10 - G89.29) [facility] Other 11-06-2023 History of Present illness Narrative* [...] List Diagnosis Date Noted Amputation of leg ([facility]) 03/01/2023 History of right-sided carotid endarterectomy 03/01/2023 Arteriosclerosis of coronary artery 02/26/2023 Bilateral carotid bruits 02/26/2023 Chronic obstructive pulmonary disease ([facility]) 02/26/2023 Hyperlipidemia 02/26/2023 Ischemic cardiomyopathy 02/26/2023 Primary [...] vertebral flow Problems addressed today included atherosclerotic [place] vessel coronary artery disease, hyperlipidemia, cerebrovascular disease, [...] MONTHS Adelaida Hargrove MD [facility] Work Phone: 1(469) 559-873111-06-2023 Instructions* Patient Instructions* Tran Morales LPN - [...] time of your visit. documented [facility] Work Phone: [phone]) [phone] Evaluation note* Encounter Date Diagnosis Assessment Notes [...] discussion, agrees with plan, denies any questions. [facility] Other 05-30-2023 Evaluation note* Encounter Date Diagnosis Assessment Notes Treatment Notes Treatment Clinical Notes August, Acute bacterial conjunctivitis of both eyes (ICD-10 - H10.33) [facility] is contagious. Wash hands frequently and try not to rub eyes. Use warm wash cloth to keep them clean or to remove discharge from eyes. Use drops until eyes are clear then 3 more days August, PAD (peripheral artery disease) (ICD-10 - I73.9) Pt agrees to referral to [facility]. 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 She is established w pain management for this problem August, Acute non-recurrent maxillary sinusitis (ICD-10 - J01.00) agrees to antibiotic for sore throat. August, History of left abov e knee amputation (ICD-10 - Z89.612) August, Chronic pain (ICD-10 - G89.29) Reviewed [facility] report. Refilled rx. [facility] Other 05-30-2023 Evaluation note* Encounter Date Diagnosis Assessment Notes Treatment Notes Treatment Clinical Notes August, Chronic pain (ICD-10 - G89.29) [facility] Other 02-06-2023 Evaluation note* Encounter Date Diagnosis [...] Continue to cover and monitor area. Vaccuum pigs feet cleaner fell on her leg and it is tender. May, Lumbar degenerative disc disease (ICD-10 - M51.36) chronic pain due to lumbar issues and BKA amputation. will call when pain med refill is needed. [facility] Other 04-14-2022 History of Present illness Narrative* [...] really any change to her pulmonary status. -[facility] DO Work Phone: 1(275) 349-105904-14-2022 History of Present illness Narrative* Previously seen [...] Ejection fraction is typically been estimated at ouvdqy40%. She indicates that her breathing has progressively [...] profile lipid profile prior to next visit. [facility] DO Work Phone: 1(449) 639-620404-14-2022 History of Present illness Narrative* Previously seen [...] Ejection fraction is typically been estimated at kefxhg47%. She indicates that her breathing has progressively [...] profile lipid profile prior to next visit. [facility] Work Phone: 1(809) 679-423401-28-2022 NoteHNO ID: [id number] Author: Chavez Dillard MD Service: ? Author [...] interventional pain procedures: Seen pain management in [facility] Did an injection with no relief Dr Bella no longer sees this provider . Relevant [facility] records were reviewed. Adverse Reaction to Medication: [...] reproduction bilaterally. Extremities: Peripheral (more content not included)...[place] 12-09-2020 NotePROCEDURE: MRI THIGH LT WO CON [...] authenticated by: JOSIE PARIS Date: 2020-12-09 16:49[facility]08-05-2021 NoteHISTORY AND PHYSICAL EXAMINATION HISTORY: This patient [...] be doing so in the near future. [facility] Signed and Approved by: ROXI MCCLENDON 11/28/2020 09:43:00[facility]08-05-2021 NoteOPERATIVE NOTE OPERATION DATE: 11-28-20 ANESTHETIC: Topical. [...] was injected into the anterior chamber and [facility] cell sponge was used to check the wounds to be water tight. One drop of apraclonidine and 1 drop of prednisolone acetate were placed into the eye and shield was placed over top. The patient was sent to the postoperative area in satisfactory condition to followup the following day for postoperative care. [facility] Signed and Approved by: ROXI MCCLENDON 12/26/2020 11:09:00[facility]07-06-2021 NotePAIN MANAGEMENT Consultation Date: 10-29-20 CHIEF COMPLAINT: [...] periosteum of the femur. cc:Dr. John Lentz. [facility] Signed and Approved by: DR DORA BELLA 11/05/2020 12:13:00[facility]07-01-2021 NoteHISTORY AND PHYSICAL EXAMINATION HISTORY: The patient [...] and go forward with her elective procedure. [facility] Signed and Approved by: ROXI MCCLENDON 10/24/2020 11:46:00[facility]07-01-2021 NoteOPERATIVE NOTE OPERATION DATE: 10-24-20 ANESTHETIC: Topical. [...] was injected into the anterior chamber and [employer] [facility] cell sponge was used to check the wounds to be water tight. One drop of apraclonidine and 1 drop of prednisolone acetate were placed into the eye and shield was placed over top. The patient was sent to the postoperative area in satisfactory condition to followup the following day for postoperative care. [facility] Signed and Approved by: ROXI MCCLENDON 11/27/2020 16:58:00[facility]06-22-2021 NotePAIN MANAGEMENT Consultation Date: 10-15-20 CHIEF COMPLAINT: Left onwnx-qdy-hglh amputation stump pain. HISTORY OF PRESENT ILLNESS: [...] 2. Lumbar spondylosis. 3. Status post left zvymk-ocx-ahjp amputation 2018. 4. Stump pain. 5. Neuromatous [...] daughter understand and would like to proceed. [facility] Signed and Approved by: DR DORA BELLA 10/29/2020 10:44:00[facility]06-22-2021 NotePAIN MANAGEMENT PROCEDURE NOTE Date: 10-15-20 PRE AND POST PROCEDURE DIAGNOSIS: Neuromatous stump pain, neuromatous pain status post left rvffd-gpe-twya amputation. PROCEDURE NAME:Neuroma stump injection. PROCEDURE: Subsequent [...] pain symptomatology that would have been present. [facility] Signed and Approved by: DR DORA BELLA 10/29/2020 10:44:00[facility]04-26-2021 NotePAIN MANAGEMENT Consultation Date: 08-19-20 HISTORY OF [...] baclofen. Of note, the patient is on longwall foreman anticoagulant medication, Plavix. On July 30 the [...] her pain. Dictated by Hemant Red APRN [facility] Signed and Approved by: HEMANT RED 08/26/2020 16:35:00[facility]03-08-2021 NoteCONSULTATION Consultation Date: 07/01/2020 PAIN MANAGEMENT CONSULTATION HISTORY OF PRESENT ILLNESS: This is a very pleasant 75-year-old female patient who comes to the [facility] for the very first time. [...] Cymbalta. The patient was last seen in 2019 for chronic leg pain due to peripheral vascular disease. Since her last office visit, she had a left leg amputation due to the peripheral vascular disease in 2019. The patient had stents July of 2018 at [facility]. Originally the patient was placed on Plavix [address] Arnold; however, Dr. Pitt in [place] took over the Plavix medication. The patient [...] the lumbar x-ray is without any deformities. [facility] Signed and Approved by: HEMANT RED 07/08/2020 17:02:00[facility]03-08-2021 NoteCONSULTATION Procedure Date: 07/01/2020 PROCEDURE NOTE: PREOPERATVE [...] signs were obtained and were stable. . [facility] Signed and Approved by: HEMANT RED 07/08/2020 17:03:00[facility]04-01-2019 History of Present illness Narrative* Mrs. Merritt [...] Ejection fraction is typically been estimated at vtxkga14%. She indicates that her breathing has progressively [...] is completed. No change made to medications. -[facility] [address] DO Work Phone: Evaluation noteNo [employer] Other Evaluation note* Diagnosis Arteriosclerosis of coronary [...] right-sided carotid endarterectomy documented in this encounter [facility] Work Phone: History general Narrative - Reported* Type Description Date Medical History High Cholesterol Medical History Depression Medical History COPD Medical History Congestive Heart Failure Surgical History Breast Augmentation 1983 Surgical History Hyster 1985 Surgical History Shoulder- Cuff Surgery-right 90 Surgical History hemorrhoidectomy 1974 Surgical History Left [...] Hospitalization History Suicide Hospitalization History See above [facility] Other Hisjwgh general Narrative - Reported* Type Description Date Medical History High Cholesterol Medical History Depression Medical History COPD Medical History Congestive Heart Failure Surgical History Breast Augmentation 1983 Surgical History Hyster 1985 Surgical History Shoulder- Cuff Surgery-right 19 90 Surgical History hemorrhoidectomy 1974 Surgical History Left [...] Hospitalization History Suicide Hospitalization History See above [facility] Other Reason for referral (narrative)* Consultation (Routine) - Authorized Specialty Diagnoses / Procedures Referred By Contruben t Referred To Contact Cardiology Diagnoses Arteriosclerosis of coronary artery Procedures Follow Up In Cardiology Adelaida Hargrove MD [address] [place] [address] Adelaida Hargrove MD [address] [place] [address] Referral ID Status Reason Start Date Expiration Date V isits Requested Visits Authorized [id number] Authorized 03/01/2023 02/29/2024 1 1 [facility] Work Phone: Summary Purpose Family History [...] Advanced Directives Records Found Chief Complaint SANCHEZ BROWN is being seen for a 6 month follow-up of.SANCHEZ MERRITT is being seen for a 6 month follow-up of.SANCHEZ MERRITT is being seen for a 6 month follow-up of.SANCHEZ MERRITT is being seen for a 6 month follow-up of. Reason for Referral Reason *FU 05/12 followup COPD, recent pneumonia, on oxygen. Diagnosis 1 Chronic obstructive pulmonary disease, unspecified COPD type (J44.9) [facility] Referring Provider First Name John Referring Provider Last Name Abhijeet Referring Provider Specialty [facility] Referred Organization [facility] Referred Provider RubioTahir Referred Address [address], [place],[address] Referred Provider Specialty Pulmonary Fidelina seases Referral Priority Routine General Notes Dai Aaron 07:48:28 AM >received today, attachments made, notes locked, referral faxed Clinical Notes p: [phone] f: [phone] Reason *Waiting for appt Former pt of Dr. Mejia - now has swelling and discoloration in R lower leg. Hx of L AKA Diagnosis 1 PAD (peripheral yuli ry disease) (I73.9) Referral Organization [facility] Referring Provider First Name John Referring Provider Last Name Abhijeet Referring Provider Specialty [facility] Referred Organization [facility] [place] Referred Provider Jaspreet Ventura Referred Address [address],[id number] Referred Provider Specialty Vascular April christianne Referral Priority Routine General Notes Dai Aaron 01:06:20 PM >received today, faxed P2P Additional Source Comments INFORMATION SOURCE (unrecogn ized section and content) DATE CREATED AUTHOR 01/02/2021 [facility] DATE CREATED AUTHOR AUTHOR'S ORGANIZ ATION 07/18/2021 [place] DATE CREATED AUTHOR AUTHOR'S ORGANIZ ATION 02/27/2022 [facility] DATE CREATED AUTHOR AUTHOR'S ORGANIZ ATION 02/27/2022 [employer] DATE CREATED AUTHOR AUTHOR'S ORGANIZ ATION 04/17/2022 [facility] DATE CREATED AUTHOR AUTHOR'S ORGANIZ ATION 12/18/[address] [facility] DATE CREATED AUTHOR AUTHOR'S ORGANIZ ATION 03/02/2023 [facility] DATE CREATED AUTHOR AUTHOR'S ORGANIZ ATION 04/13/2023 [facility] REASON FOR VISIT (unrecogniz ed section and content) Reason Comments Follow-up 1 year Care Teams (unrecognized sec tion and content) Otologist Relationship Specialty Start Date End Date John Lentz MD [address] [place], [place] [id number] PCP - General 11/03/18 FOR RECORDS PERTAINING [...] BE BASED ON THE PRIMARY CLINICAL RECORDS. [facility]. provides no warranty or guarantee of the accuracy or completeness of information in this document.
[2023-06-01] MEDS: METHYLPREDNISOLONE SOD SUCC PF 125 MG/2 ML VIAL IVP ×3 (11:11→22:37)
[2023-06-01 11:20] LABS: Anion Gap 13.3; BUN Creatinine Ratio 8.4; Carbon Dioxide 25.7 mmol/L (21.0-32.0); Chloride 106 mmol/L (98-107); Estimated GFR (African America >60 (>=60); Estimated GFR (Non-African Ame >60 (>=60); Glucose 122 mg/dL (74-106); Sodium 141 mmol/L (136-145); Troponin I High Sensitivity 7.7 pg/mL (4.0-51.3)
[2023-06-01] MEDS: CEFTRIAXONE 1,000 MG in 0.9 % SODIUM CHLORIDE 50 ML 100 MG IV (12:09)
[2023-06-01 12:15] LABS: Alanine Aminotransferase 14 U/L (14-59); Albumin Globulin Ratio 0.8; Alkaline Phosphatase 97 U/L (46-116); Aspartate Amino Transferase 18 U/L (15-37); Bilirubin Direct 0.1 mg/dL (0.0-0.2); Bilirubin Total 0.5 mg/dL (0.2-1.0); Globulin 3.8 g/dL; Total Protein 6.8 g/dL (6.4-8.2)
[2023-06-01 12:21] LABS: Lactate/Lactic Acid 2.4 mmol/L (0.4-2.0)
[2023-06-01] MEDS: AZITHROMYCIN 500 MG in 0.9 % SODIUM CHLORIDE 250 ML 250 MG IV (12:38)
[2023-06-01 12:42] LABS: PROCALCITONIN <0.05 ng/mL (0.00-0.50)
--- OUTSIDE RECORDS SUMMARY | 2023-06-01 13:25 | XMS_ITS | CCD ---
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 Name Role Phone SELVIN, DR DORA Buenrostro [...] Unavailable BELLA, DR DORA Buenrostro Attending Unavailable ESLVIN, DR DORA Buenrostro Admitting Unavailable LENTZ, DR JOHN Brown Primary Care Unavailable SELVIN, DR DORA Buenrsotro Consulting Unavailable SELVIN, DR DORA Buenrostro Attending Unavailable CRISTIANMALDONADO Chase Consulting Unavailable DORKOSKLUIS, SEMAJ Consulting Unavailable SELVIN, DR DORA Buenrostro Admitting Unavailable SELVIN, DR DORA Buenrostro Consulting Unavailable LENTZ, DR JOHN Brown Primary Care Unavailable SELVIN, DR DORA Buenrostro Attending Unavailable CLINKER, HEMANT Consulting Unavailable CLINKER, HEMANT Attending Unavailable CLINKER, HEMANT Admitting Unavailable LENTZ, DR JOHN Brown Primary Care Unavailable ALEXANDRIA, DR LORENA Tirado Consulting Unavailable CLINKER, HEMANT [...] Unavailable BELLA, DR DOAR Buenrostro Consulting Unavailable ELNTZ, DR JOHN Brown Primary Care Unavailable SELVIN, [...] Care Unav ailable Abhijeet, Dr. John Melgoza [facility] Unav ailable Jimmy, Dr. Tracey De La Cruz Attending Unavail able Lyster, Dr. Tracey De La Cruz Referring Unavail able Lyster, Dr. Tracey De La Cruz Attending Unavail able Lyster, Dr. Tracey De La Cruz Referring Unavail able Lentz, Dr. John Melgoza [facility] Unav ailable Delvin, Dr. Son Attending Unavailable Abhijeet, Dr. John Melgoza [facility] Palomav ailJohn Vick Unavailable Margy Olivas Unavailable Margy Olivas Attending Unavailable Margy Olivas Admitting Unavailable John Lentz Primary Care Unavailable John Lentz MD Primary Care Provider ADELAIDA HARGROVE Attending Unavailable JOHN LENTZ Primary Care Unavaila OMKAR Jorgensen Attending Unavailable Allergies Allergy Classification Reported Allergen(s) Allergy Type Date of Onset Reaction(s) Facility (15 sources) Bacitracin; Translations: [BACITRACIN] Drug Allergy 07-19-19 21 Unknown [facility] Repository (2 sources) Neomycin; Translations: [NEOMYCIN] Drug Allergy 07-19-19 21 [facility] Repository (3 sources) Vancomycin; Translations: [VANCOMYCIN] Drug Allergy 01-17-20 15 [facility] Repository (1 source) Polymyxin B Drug allergy (disorder) 07-19-19 21 [facility] Repository (20 sources) Vancomycin; Translations: [vancomycin] Drug Allergy 07-21-19 14 [facility] (20 sources) Aminoglycosides (Antibiotic) Propensity to adverse reactions Unknown [facility] Other (9 sources) Bacitracin Drug Allergy Unknown [facility] Other (20 sources) Neomycin Drug Allergy Unknown [facility] Other (20 sources) Polymyxin B Drug Allergy Unknown [facility] Other (15 sources) Contrast media Propensity to adverse reactions 07-21-19 14 Unknown [facility] Other (15 sources) Erythromycin Drug Allergy Unknown [facility] Other (15 sources) fluticasone / salmeterol Drug Allergy 09-11-19 16 Unknown [facility] Other (14 sources) influenza A virus (H1N1) antigen / influenza A virus (H3N2) antigen / influenza B virus antigen Drug Allergy Comment:Flu Injection [facility] Other (15 sources) traMADol Drug Allergy 10-17-19 15 Unknown [facility] Other (15 sources) Advair Diskus *ANTIASTHMATIC AND BRONCHODILATOR AG Propensity to adverse reactions Unknown [facility] Other (7 sources) patient allergy list reviewed by nurse or physicia Propensity to adverse reactions 09-22-19 18 Comment:Done [facility] Other (15 sources) Dyes Propensity to adverse reactions Comment:CT DYE [facility] Other (7 sources) Allergies Reconciled Propensity to adverse reactions Unknown [facility] Other (15 sources) TraMADol & Dietary Manage Prod *ANALGESICS - OPIOI Propensity to adverse reactions Unknown [facility] Other (15 sources) Vaccine product containing Influenza virus antigen (medicinal product) Drug allergy 03-03-20 17 Unknown [facility] Other (15 sources) Contraindication to Flu Injection Propensity to adverse reactions 08-18-19 18 Comment:advers e rxn/side effects [facility] Other (1 source) Aminoglycosides (Antibiotic) Drug allergy (disorder) 10-25-19 [facility] Repository (1 source) Vancomycin Drug Allergy 10-25-19 [facility] Repository (1 source) Flucelvax Quadrivalent Drug allergy Comment:Flu Injection [facility] Other (1 source) POLYMYXIN B SULFATE-HC; Translations: [POLYMYXIN B SULFATE-HC] Propensity to adverse reactions to drug (disorder) 08-29-19 [facility] Repository Medications Current Medications Medication Drug Class(es) Dates Sig (Normalized) Sig (Original) [id number] actuat albuterol 0.09 mg/actuat metered dose [...] Active Start: 05-26-2021 take 1 capsule by [facility] twice daily DULoxetine HCl - 30 MG Oral Capsule Delayed Release Particles TAKE 1 CAPSULE TWICE DAILY. Quantity: 0 Refills: 0 Ordered: 26-May-2021 DO Start : 26-May-2021 Active take 1 capsule by [facility] every twenty-four hours Cymbalta 60 MG 1 [...] Active Start: 12-29-2022 take 1 tablet by re[facility] every six hours oxyCODONE HCl 10 MG [...] Start: 06-01-2022 take 2 tablets by mo [facility] every twenty-four hours predniSONE 20 MG [...] disease (20 sources) Atherosclerotic heart disease of tetlin coronary artery without angina pectoris; Translations: [Coronary arteriosclerosis] Onset: 08-25-2018 03-01-2023 Chronic Coronary atherosclerosis and other heart disease (10 sources) Stented coronary artery; Translations: [Percutaneous transluminal coronary angioplasty status] Onset: 02-26-2023 03-01-2023 Episodic Coronary atherosclerosis and other heart disease (1 source) Coronary atherosclerosis and other heart disease; Translations: [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, right [...] 07-20-2013 Chronic Other aftercare (1 source) 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; Translations: [OTH RESIDENTIAL CURRENT DRUG THERAPY] Onset: 11-06-2020 Episodic Other aftercare (7 sources) Long-term current use of inhaled steroid; Translations: [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 of inhaled steroids] Episodic Other aftercare (7 sources) Long-term current use of anticoagulant; Translations: [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 of anticoagulants] Episodic Other [...] Onset: 12-17-2016 Episodic Other aftercare (1 source) 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 of anticoagulants; Translations: [RESIDENTIAL CURRNT USE ANTICOAGULANTS] Onset: 07-05-2020 Episodic Other [...] Range Facility Office Visiton 04-12-2023 Follow-up visit [id number] Sanchez Merritt 1945 F Date Provider Department Center 04/12/2023 Jassi6-OMKAR VI[facility] No family history on file Level of Service:46106 AR OFFICE/OUTPATIENT ESTABLISHED MOD MDM 30 MIN Normal [facility] US UNI ankle/arm indiceson 0 12-17-2022 US UNI ankle/arm indices [facility] [place] [address] Ultrasound Report Signed Patient: Sanchez Merritt MR#: [id number] : 1945 Acct:[id number] Age/Sex: 77 / F ADM Date: 11/17/22 Loc: [facility] Room: Type: [facility] Attending Dr: Margy Olivas PROGRAM LEAD-C Ordering Provider: Margy Olivas APRN Date of [...] Lauro Heard MD12/17/2022 2:11 PM Dictation Location: [id number] Tech: Julia Ortegaley Transcribed By: BILLIE 12/17/221410 Dictated By: Lauro Heard MD 12/17/221409 Signed By: 12/17/221410 [facility] LAB Carotid Artery Dupl ex Ultrasounon 04-13-2022 [facility] Carotid Artery Duplex Ultrasoun [address], [address] [place] [address] Vascular Lab Report Carotid Artery Duplex Ultrasound Patient Name: SANCHEZ Regis Melara Physician: [id number] Ludwig South [facility] Study Date: 04/13/2022 Referring ADELAIDA HARGROVE Physician: MRN/PID: [id number] PCP: John Lentz Accession/Order#: [id number] CC Report to: Cooper Arnold Date of : 1945 Technologist: Jillian Gonzalez RD, [facility] Gender: F Technologist 2: Admission Status: Outpatient Location Performed: [facility] Diagnosis/ICD: R09.89-Other specified symptoms and signs involving the circulatory and respiratory systems Indication: CAD, Right CEA, Peripheral Vascular Disease, 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 [employer] DO Work Phone: Height or Weight NOT Doneon 02-26-2022 Fall risk assessment a) No falls within the last year [facility] [place] 250 DO Work Phone: Tobacco use status CPHS b) No [facility] [place] 250 DO Work Phone: Office Visit (Cardiology)on [...] stenting (more content not included)... Normal [facility] CARDIAC STRESS/REST INJE CTIONon 08-19-2021 [facility] CARDIAC STRESS/REST INJECTION Patient Name: SANCHEZ MERRITT STUDY: MYOCARDIAL PERFUSION STRESS TEST WITH LEXISCAN Performing facility: [facility], [address], [address], [place] [address] [facility] Provider: Tracey Pitt DO, [facility] PCP: Dr. Young Lentz Supervising provider: Ludwig South MD, [facility] INDICATION: CAD; ICM SOB; HISTORY: Gender: F; Age: 76 y/o ; Height: 160.02 cm; Weight: 58.861032 kg. High Cholesterol; CAD; SOB; COPD; Quit smoking 12 years ago. Cardiac catheterization on 2018. PTCA on 2018. COMPARISON: No comparison. ACCESSION NUMBER(S): [id number]; [id number]; [id number] ORDERING CLINICIAN: TRACEY PITT TECHNIQUE: ONE DAY [...] Electronically signed by: GHULAM RIVERA MD Normal [facility] No Panel Informationon 08-19 Normal [facility] 250 DO Work Phone: [...] Status:Hold For - Scheduling,Retrospecti ve Authorization; Requested for:[id number]; Radiologist to Determine Optimal Study : Y What are the patient's signs and symptoms? 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 Respiratory: (more content not included)... Normal Chain Tobacco Screening.on 022 Adult depression screening assessment Yes -[facility] 250 DO Work Phone: Fall risk assessment a) No falls within the last year [facility] 250 DO Work Phone: Tobacco use status [facility] b) No -[facility] 250 DO Work Phone: Tobacco Screening. 2-More than half the days [facility] 250 DO Work Phone: Tobacco Screening. 1-Several days [facility] [facility] DO Work Phone: Tobacco Screening. 0-Not at all [facility] 250 DO Work Phone: Tobacco Screening. 3-Nearly every day [facility] 250 DO Work Phone: Tobacco Screening. Somewhat Difficult -[facility] 250 DO Work Phone: Wily 05-23-2021 [facility] SANCHEZ MERRITT ([id number]) 1945 F Date Time Provider Department 05/23/21 [...] interventional pain procedures: Seen pain management in [facility] Did an injection with no relief Dr [...] radicular pain. (more content not included)... Normal [facility] CNPNon 05-23-2021 [facility] Telephone (AJ) SANCHEZ MERRITT ([id number]) 1945 F Date Time Provider Department 05/23/21 [...] be called to [facility] in [place]. States it was discussed at last OV. Please advise. Cleopatra King LPN 05/28/2021 11:50 AM Signed Called the patient and advised that normally Lien Hughes LPN 05/28/2021 12:02 PM Signed Tens unit was sent to [facility]. Cleopatra King LPN 05/28/2021 1:25 PM Signed Patient was notified that order was sent to [facility] and they would contact her. Allergies [...] Status:Closed by CLEOPATRA KING on 05/28/21 Normal [facility] Covid-19 PCR (CVDTBH)on SARS-CoV-2 (COVID-19) RNA MEENAKSHI+probe Ql (Unsp spec) Not detected Normal NOT DETECTED [facility] Comment on above: Result Comment: This test is not yet approved or cleared by the [place] FDA. When there are no FDA-approved or cleared tests available, and other criteria are met, FDA can make tests available under an emergency access mechanism called an Emergency Use Authorization (EUA). The EUA for this test is supported by the [place] of Health and Human Service's (HHS's) declaration [...] consistent with SARS-CoV-2. Performed By: #### C [facility] ####[facility] [id number] [address] Aggie XR LSPINE W_OBLS AND FLEX_EX [...] LORENA LATIF Date: 2020-07-02 15:09 Normal [facility] CT CHEST HI RESOLUTIONon CT CHEST HI [...] by: JOSIE PARIS Date: 2020-06-18 14:59 Normal [facility] XR CHEST 2 Von 02-29-2020 XR CHEST [...] by: JOSIE PARIS Date: 2020-02-29 09:04 Normal [facility] Vital Signs Date Time Vital Sign Value Performing Clinician Facility 04-29-2023 13:00-0500 Body height 156.21 cm John Lentz Other [facility] Other 04-29-2023 13:00-0500 Body mass index (BMI) [Ratio] 24.16 kg/m2 John Lentz Other [facility] Other 04-29-2023 13:00-0500 Body weight 58.97 kg John Lentz Other [facility] Other 04-29-2023 13:00-0500 Diastolic blood pressure 76 mm[Hg] John Lentz Other [facility] Other 04-29-2023 13:00-0500 SaO2% (BldA) [Mass fraction] 86 % John Lentz Other [facility] Other 04-29-2023 13:00-0500 Systolic blood pressure 109 mm[Hg] John Lentz Other [facility] Other 04-15-2023 15:45-0500 Body height 156.21 cm John Lentz Other [facility] Other 04-15-2023 15:45-0500 Body mass index (BMI) [Ratio] 24.16 kg/m2 John Lentz Other [facility] Other 04-15-2023 15:45-0500 Body weight 58.97 kg John Lentz Other [facility] Other 04-15-2023 15:45-0500 Diastolic blood pressure 72 mm[Hg] John Lentz Other [facility] Other 04-15-2023 15:45-0500 SaO2% (BldA) [Mass fraction] 95 % John Lentz Other [facility] Other 04-15-2023 15:45-0500 Systolic blood pressure 103 mm[Hg] John Lentz Other [facility] Other 03-01-2023 14:00-0500 Diastolic blood pressure 68 mm[Hg] Adelaida Hargrove MD Work Phone: [facility] 03-01-2023 14:00-0500 Heart rate 68 /min Adelaida Hargrove MD Work Phone: [facility] 03-01-2023 14:00-0500 Systolic blood pressure 110 mm[Hg] Adelaida Hargrove MD Work Phone: [facility] 10-20-2022 13:15-0400 Body height 156.21 cm Margy Olivas Other [facility] Other 10-20-2022 13:15-0400 Body mass index (BMI) [Ratio] 24.16 kg/m2 Margy Olivas Other [facility] Other 10-20-2022 13:15-0400 Body temperature 96.9 [degF] Margy Olivas Other [facility] Other 10-20-2022 13:15-0400 Body weight 58.97 kg Margy Olivas Other [facility] Other 10-20-2022 13:15-0400 Diastolic blood pressure 60 mm[Hg] Margy Olivas Other [facility] Other 10-20-2022 13:15-0400 SaO2% (BldA) [Mass fraction] 93 % Margy Olivas Other [facility] Other 10-20-2022 13:15-0400 Systolic blood pressure 110 mm[Hg] Margy Olivas Other [facility] Other 09-22-2022 10:00-0400 Body height 156.21 cm John Lentz Other [facility] Other 09-22-2022 10:00-0400 Body mass index (BMI) [Ratio] 24.16 kg/m2 John Lentz Other [facility] Other 09-22-2022 10:00-0400 Body weight 58.97 kg John Lentz Other [facility] Other 09-22-2022 10:00-0400 Diastolic blood pressure 68 mm[Hg] John Lentz Other [facility] Other 09-22-2022 10:00-0400 Systolic blood pressure 117 mm[Hg] John Lentz Other [facility] Other 06-01-2022 11:15-0500 Body height 156.21 cm John Lentz Other [facility] Other 06-01-2022 11:15-0500 Body mass index (BMI) [Ratio] 24.16 kg/m2 John Lentz Other [facility] Other 06-01-2022 11:15-0500 Body weight 58.97 kg John Lentz Other [facility] Other 06-01-2022 11:15-0500 Diastolic blood pressure 60 mm[Hg] John Lentz Other [facility] Other 06-01-2022 11:15-0500 SaO2% (BldA) [Mass fraction] 92 % John Lentz Other [facility] Other 06-01-2022 11:15-0500 Systolic blood pressure 102 mm[Hg] John Lentz Other [facility] Other 02-26-2022 15:00-0400 Body height 160.02 cm John Lentz Work Phone: [facility] 250 DO Work Phone: 02-26-2022 15:00-0400 Body mass index (BMI) [Ratio] Medical Reason Not Done John Lentz Work Phone: [facility] 250 DO Work Phone: 02-26-2022 15:00-0400 Diastolic blood pressure 60 mm[Hg] John Lentz Work Phone: [facility] [facility] DO Work Phone: 02-26-2022 15:00-0400 Heart rate 80 /min John Lentz Work Phone: [facility] [facility] DO Work Phone: 02-26-2022 15:00-0400 Systolic blood pressure 122 mm[Hg] John Lentz Work Phone: [facility] 250 DO Work Phone: 08-19-2021 12:00-0400 72 1 John Lentz Work Phone: [facility] [facility] DO Work Phone: Comment on above: [id number] 08-07-2021 14:55-0400 Body height 160.02 cm John Lentz Work Phone: [facility] DO Work Phone: 08-07-2021 14:55-0400 Diastolic blood pressure 68 mm[Hg] John Lentz Work Phone: [facility] [facility] DO Work Phone: 08-07-2021 14:55-0400 Heart rate 89 /min John Lentz Work Phone: [facility] 250 DO Work Phone: 08-07-2021 14:55-0400 Systolic blood pressure 114 mm[Hg] John Lentz Work Phone: [facility] 250 DO Work Phone: 08-07-2021 14:55-0400 10 1 John Lentz Work Phone: [facility] [facility] DO Work Phone: Comment on above: PHQ-9 TS Encounters Encounter Date Encounter Type Care Provider Facility Start: 05-17-2023 End: 05-17-2023 ambulatory John Abhijeet Other [facility] Other Start: 05-17-2023 Telephone encounter John Abhijeet [facility] Start: 04-30-2023 End: 04-30-2023 ambulatory John Abhijeet Other [facility] Other Start: 04-30-2023 Telephone encounter John Abhijeet [facility] Start: 04-29-2023 End: 04-29-2023 ambulatory John Abhijeet Other [facility] Other Start: 04-29-2023 Office outpatient vi sit 25 minutes John Abhijeet [facility] Start: 04-29-2023 Telephone encounter John Lentz [facility] Start: 04-27-2023 End: 04-27-2023 ambulatory John Abhijeet Other [facility] Other Start: 04-27-2023 Telephone encounter John Lentz [facility] Start: 04-15-2023 End: 04-15-2023 ambulatory John Abhijeet Other [facility] Other Start: 04-15-2023 Office outpatient vi sit 25 minutes John Abhijeet [facility] Start: 04-14-2023 End: 04-14-2023 ambulatory John Abhijeet Other [facility] Other Start: 04-14-2023 Telephone encounter John Lentz [facility] Start: 04-12-2023 End: 04-12-2023 ambulatory OMKAR [facility] Start: 04-02-2023 End: 04-02-2023 ambulatory John Lentz Other [facility] Other Start: 04-02-2023 Telephone encounter Johnabimael Lentz [facility] Start: 03-23-2023 (Televisit) Televisit John Abhijeet [facility] Start: 03-23-2023 End: 03-23-2023 ambulatory John Lentz Other [facility] Other Start: 03-22-2023 End: 03-22-2023 ambulatory John Lentz Other [facility] Other Start: 03-22-2023 Telephone encounter John Abhijeet [facility] Start: 03-01-2023 End: 03-01-2023 ambulatory [facility] Ambulatory Start: 03-01-2023 End: 03-01-2023 Office outpatient visit 25 minutes Adelaida Hargrove MD Work Phone: [facility] Comment on above: Arteriosclerosis of coronary artery (Primary Dx); Bilateral carotid bruits; Hyperlipidemia, unspecified hyperlipidemia type; Ischemic cardiomyopathy; Primary hypertension; Stented coronary artery; Chronic obstructive pulmonary disease, unspecified COPD type (CMS/HCC); Wheelchair dependent; Amputation of leg (CMS/HCC); History of right-sided carotid endarterectomy Start: 01-27-2023 End: 01-27-2023 ambulatory John Lentz Other [facility] Other Start: 01-27-2023 Telephone encounter John Abhijeet [facility] Start: 01-25-2023 End: 01-25-2023 ambulatory John Lentz Other [facility] Other Start: 01-25-2023 Telephone encounter John Abhijeet [facility] Start: 01-08-2023 End: 01-08-2023 ambulatory John Lentz Other [facility] Other Start: 01-08-2023 Telephone encounter John Abhijeet [facility] Start: 12-02-2022 End: 12-02-2022 ambulatory John Lentz Other [facility] Other Start: 12-02-2022 Telephone encounter John Lentz [facility] Start: 11-17-2022 End: 11-17-2022 ambulatory Margy Olivas Facility:[facility] Start: 10-20-2022 End: 10-20-2022 ambulatory Margy Olivas Other [facility] Other Start: 10-20-2022 [facility] visit new patient Margy alicia [facility] Start: 09-23-2022 End: 09-23-2022 ambulatory John Lentz Other [facility] Other Start: 09-23-2022 Telephone encounter John Lentz [facility] Start: 09-22-2022 End: 09-22-2022 ambulatory John Lentz Other [facility] Other Start: 09-22-2022 Office outpatient vi sit 25 minutes John Lentz [facility] Start: 09-22-2022 Telephone encounter John Lentz [facility] Start: 08-13-2022 Rx Renewal John Lentz Work Phone: [facility] 250 DO Work Phone: Start: 07-15-2022 End: 07-15-2022 ambulatory John Lentz Other [facility] Other Start: 07-15-2022 Telephone encounter John Lentz [facility] Start: 06-01-2022 End: 06-01-2022 ambulatory John Lentz Other [facility] Other Start: 06-01-2022 Office outpatient vi sit 25 minutes John Lentz [facility] Start: 05-05-2022 End: 05-05-2022 ambulatory John Lentz Other [facility] Other Start: 05-05-2022 Telephone encounter John Lentz [facility] Start: 04-17-2022 Chart Update John Lentz Work Phone: [facility] 250 DO Work Phone: Start: 04-13-[address] Adelaida Griggs ty:[id number] Start: 02-26-2022 Office outpatient vi sit 25 minutes John Lentz Work Phone: [facility] 250 DO Work Phone: Start: 02-26-[address] Adelaida Griggs ty: Start: 12-12-2021 Pre-procedure evalua tion check John Lentz Other [facility] [employer] Other Start: 09-11-2021 Rx Renewal John Lentz Work Phone: [facility] 250 DO Work Phone: Start: 09-08-2021 Rx Renewal John Lentz Work Phone: [facility] 250 DO Work Phone: Start: 09-01-2021 Chart Update John Lentz Work Phone: [facility] 250 DO Work Phone: Start: 08-19-[address] Tracey Pitt Facility:[id number] Start: 08-07-2021 Office outpatient vi sit 25 minutes John Lentz Work Phone: [facility] 250 DO Work Phone: Start: 08-07-[address] John Lentz Facility: Start: 07-21-2021 Rx Renewal John Lentz Work Phone: [facility] 250 DO Work Phone: Start: 01-14-[address] DORA Griggs ty:[id number] Start: 12-09-2020 End: 12-10-[address] JOHN LNETZ Facility:H1 Start: 11-28-2020 End: 11-28-[address] JOHN LENTZ Facility:H1 Start: 10-29-2020 End: 10-30-[address] DORA BELLA Facility:[facility]1 Start: 10-24-2020 End: 10-24-[address] JOHN LENTZ Facility:[facility]1 Start: 10-15-2020 End: 10-16-[address] DORA BELLA Facility:[facility]1 Start: 10-04-2020 Encounter for preprocedural laboratory examination DR DORA BELLA [facility] Start: 10-01-2020 End: 10-01-[address] DORA [...] DTaP/Tdap/Td Vaccines (2 - Td or Tdap) [facility] Start: 11-08-2023 End: 11-08-2023 Patient encounter procedure 11/08/2023 1:15 PM EDT Office Visit [facility] [address] [facility] [address] [place] [address] Adelaida Hargrove MD [address] [place] [address] [address] [place] [address] [facility] Start: 03-01-2023 FUV, Provider: Adelaida Hargrove, Status: Pen, Time: 2:00 PM FUV, Provider: Adelaida Hargrove, Status: Pen, Time: 2:[address] [facility] 250 DO Work Phone: Start: 03-01-2023 End: 03-01-2024 Comprehensive metabolic 2000 panel - Serum or Plasma Comprehensive Metabolic Panel Lab Routine Arteriosclerosis of coronary artery Primary hypertension Stented coronary artery Expected: 03/01/2023 (Approximate), Expires: 03/01/2024 [facility] Service Area Work Phone: Comment on above: Expected: 03/01/2023 (Approximate), Expires: 03/01/2024 Start: 03-01-2023 End: 03-01-2024 Lipid 1996 panel - Serum or Plasma Lipid Panel Lab Routine Hyperlipidemia, unspecified hyperlipidemia type Expected: 03/01/2023 (Approximate), Expires: 03/01/2024 [facility] Work Phone: Comment on above: Expected: 03/01/2023 (Approximate), Expires: 03/01/2024 Start: 12-25-2022 Influenza vaccination Influenza Vacc ine (#1) [facility] Start: 04-13-2022 CAROTID, Provider: [facility] ULTRASOUND 01,[id number], Status: Pen, Time: 10:45 AM CAROTID, Provider: [facility] ULTRASOUND 01,[id number], Status: Pen, Time: 10:45 AM [facility] Work Phone: Start: 04-13-2022 ECHO, Provider: [facility] ULTRASOUND 01,[id number], Status: Pen, Time: 10:45 AM ECHO, Provider: [facility] ULTRASOUND 01,[id number], Status: Pen, Time: 10:45 AM -[facility] 250 DO Work Phone: Start: 01-29-2022 FUV, Provider: Adelaida Hargrove, Status: Pen, Time: 1:00 PM FUV, Provider: Adelaida Hargrove, Status: Pen, Time: 1:00 PM -[facility] 250 DO Work Phone: Start: 08-19-2021 STRESS NUC, Provider : [facility] NUCLEAR 01,[id number], Status: Pen, Time: 12:00 PM STRESS NUC, Provider: [facility] NUCLEAR 01,[id number], Status: Pen, Time: 12:00 PM -[facility] 250 DO Work Phone: Start: 08-07-2021 FUV, Provider: Tracey Pitt, Status: Pen, Time: 2:45 PM FUV, Provider: Tracey Pitt, Status: Pen, Time: 2:45 PM -[facility] 250 DO Work Phone: Start: 06-08-2021 COVID-19 Vaccine (4 - Moderna series) COVID-19 Vaccine (4 - Moderna series) [facility] Start: 11-24-2018 Pneumococcal Vaccine : 65+ Years (2 - PPSV23 or PCV20) Pneumococcal Vaccine: 65+ Years (2 - PPSV23 or PCV20) [facility] Start: 1993 Zoster Vaccines (1 o f 2) Zoster Vaccines (1 of 2) [facility] Start: 1961 Diabetes mellitus screening Diabetes Screening [facility] Start: 1961 Hepatitis C screening Hepatitis C Sc reening [facility] Start: 1943 Lipid panel Lipid Panel [facility] Start: 1943 Medicare Annual Wellness Visit Medicare Annual Wellness Visit (AWV) [facility] Start: 1943 Screening for osteoporosis Bone Density Scan [facility] Immunizations Immunization Date Immunization Notes Care Provider Emmanuel kaba 04-13-2021 Pfizer-BioNTech COVID-19 Vacc 30 MCG/0.3ML Intramuscular Suspension John Lentz Work Phone: [facility] 250 DO Work Phone: 07-02-2020 Moderna COVID-19 Vaccine 100 MCG/0.5ML Intramuscular Suspension John Lentz Work Phone: [facility] 250 DO Work Phone: 06-03-2020 Moderna COVID-19 Vaccine 100 MCG/0.5ML Intramuscular Suspension John Lentz Work Phone: [facility] 250 DO Work Phone: 09-29-2018 pneumococcal conjuga te vaccine, 13 valent John Lentz Work Phone: [facility] 250 DO Work Phone: 08-16-2018 tetanus toxoid, redu luis diphtheria toxoid, and acellular pertussis vaccine, adsorbed Adelaida Hargrove MD Work Phone: [facility] Work Phone: 02-16-2017 influenza virus vaccine, split virus (incl. purified surface antigen) John Lentz Other [employer] Other 02-16-2017 influenza, high dose seasonal, preservative-free John Kevin Lentz Work Phone: [facility] [employer] DO Work Phone: 02-16-2017 influenza virus vaccine, unspecified formulation Adelaida Hargrove MD Work Phone: [facility] Work Phone: 01-24-2017 influenza virus vaccine, unspecified formulation John Lentz Work Phone: [facility] [employer] DO Work Phone: 01-25-2016 influenza virus vaccine, split virus (incl. purified surface antigen) John Lentz Other [employer] Other 01-25-2016 influenza, high dose seasonal, preservative-free John Lentz Work Phone: [facility] [employer] DO Work Phone: 03-02-2015 influenza, injectabl e, quadrivalent, preservative free John Lentz Work Phone: [facility] [employer] DO Work Phone: 03-02-2015 tetanus and diphther ia toxoids, adsorbed, preservative free, for adult use (5 Lf of tetanus toxoid and 2 Lf of diphtheria toxoid) John Lentz Other [employer] Other 02-12-2009 pneumococcal conjuga te vaccine, 7 valent John Lentz Work Phone: [employer] DO Work Phone: 01-30-2009 influenza virus vaccine, whole virus John Lentz Work Phone: [employer] DO Work Phone: Payers Date Payer Category Payer Unknown [id number] 2016 Unknown 2016 Unknown [id number] 2008 Medicare MEDICARE MEDICAR E PART A AND B [id number] 2008-Present [address] [place] [address] [id number] 1959 Medicare [id number] 1959 Self-pay 1959 Unknown [id number] 1943 Unknown [id number] 2.16.840.1.187856.3.579.2.593 1943 Unknown [id number] 2.16.840.1.797604.3.579.2.593 1943 Unknown [id number] 2.16.840.1.847923.3.579.2.593 1943 Unknown [id number] 2.16.840.1.842256.3.579.2.593 1943 Unknown [id number] 2.16.840.1.731323.3.579.2.593 1943 Unknown [id number] 2.16.840.1.939383.3.579.2.593 1943 Unknown [id number] 2.16.840.1.156947.3.579.2.593 1943 Unknown [id number] 2.16.840.1.671478.3.579.2.593 1943 Unknown [id number] 2.16.840.1.945269.3.579.2.593 1943 Unknown [id number] 2.16.840.1.048701.3.579.2.593 1943 Unknown [id number] 2.16.840.1.315363.3.579.2.593 1943 Unknown [id number] 2.16.840.1.173679.3.579.2.593 1943 Unknown [id number] 2.16.840.1.702599.3.579.2.593 1943 Unknown [id number] 2.16.840.1.644995.3.579.2.593 1943 Unknown [id number] 2.16.840.1.288894.3.579.2.356 1943 Unknown [id number] 2.16.840.1.779249.3.579.2.356 1943 Unknown [id number] 2.16.840.1.760622.3.579.2.1068 1943 Unknown [id number] 2.16.840.1.986888.3.579.2.1068 1943 Unknown [id number] 2.16.840.1.997922.3.579.2.1244 Unknown [id number] 2.16.840.1.201380.3.579.2.593 Unknown [id number] 2.16.840.1.786817.3.579.2.593 Unknown [id number] 2.16.840.1.905726.3.579.2.531 Social History Date Type Detail Facility Start: 08-07-2021 End: 03-01-2023 Daily caffeine consumption, 2-3 servings a day Daily caffeine consumption, 2-3 servings a day [facility] Comment on above: Quit cigs 2009; 1 cup of coffee harshil y; Start: 08-07-2021 End: 03-01-2023 Sex Assigned At [facility] Start: 03-01-2023 Tobacco smoking stat us MAIS Ex-smoker [facility] End: 04-26-2009 History of tobacco use Current smoker [facility] Work Phone: End: 04-26-2009 History of tobacco use Cigarette Smoker [facility] Work Phone: Start: 03-01-2023 Tobacco use and exposure Smokeless tobacco non-user [facility] Work Phone: Start: 03-01-2023 Alcohol intake Lifetime non-d annemarie (finding) [facility] Work Phone: Start: 1945 [facility] Start: 02-19-2023 End: 03-01-2023 Exposure to SARS-CoV-2 (event) Not sure [facility] Functional Status Date Assessment Result Facility 08-07-2021 PHQ-9 [id number] Moderate (10-14) [facility] 250 DO Work Phone: Clinical Notes 07-25-2018 to 05-17-2023 Note Date & Type Note Facility 05-17-2023 Evaluation note Encounter Date Diagnosis Assessment Notes Apr, Chronic obstructive pulmonary disease, unspecified COPD type (ICD-10 - J44.9) [facility] Other 01-05-2024 Evaluation note* Encounter Date Diagnosis Assessment Notes Treatment Notes Treatment Clinical Notes Apr, Chronic obstructive pulmonary disease, unspecified COPD type (ICD-10 - J44.9) [facility] Other 01-04-2024 Evaluation note* Encounter Date Diagnosis Assessment Notes Treatment Notes Treatment Clinical Notes Apr, Chronic pain (ICD-10 - G89.29) [facility] [employer] Other 01-04-2024 Evaluation note* Encounter Date Diagnosis [...] to AKA history. Sees pain managment in [place] Apr, Pneumonia, unspecified organism (ICD-10 - J18.9) Pulmonolary consult. Improving. 04 Curtis, 2024 Nosocomial condition (ICD-10 - Y95) Apr, Atrial fibrillation with RVR (ICD-10 - I48.91) presently in regular rhythm [facility] Other 12-21-2023 Evaluation note* Encounter Date Diagnosis Assessment Notes Treatment Notes Treatment Clinical Notes Mar, Acute UTI (ICD-10 - N39.0) UA will be taken to hospital Pt cannot provide UA presently. We suspect UTI due to her recent confustion. Order printed and given to daughter. She will take it to [facility] when she goes to work tomorrow. Mar, Cellulitis of right leg (ICD-10 - L03.115) Patient is advised to stay well hydrated. Finish the full antibiotic until gone. Patient is advised to add a probiotic to their diet such as yogurt. Follow up to let us know if symptoms have improved Mar, Chronic constipation (ICD-10 - K59.09) samples of miralax given [facility] Other 12-20-2023 Evaluation note* Encounter Date Diagnosis Assessment Notes Treatment Notes Treatment Clinical Notes Mar, Confusion (ICD-10 - R41.0) [facility] Other 12-18-2023 Note-[facility] Note-stable, concerns for hypotension given first BP in office had SBP [facility]Un[facility]20[facility] Note-recovered EF per recent echo 03/2023 EF 55-60% -NYHA unable to asses given wheel chair bound and left AKA< she does state she is able to do basic ADLs -GDMT: stop lisionpril given hypotension, stop coreg, Will start toprol xl 25mg daily and do event monitor to watch for RVR -prioritizing rate control at this time -continue aldactone 25mg, start toprol xl 25mgUnSelect [facility]12-18-2023 Note-s/p left AKAUniversHocking [facility]12-18-2023 Note-noted in hx, sees a vascular surgeonUnSelect [facility] [place] 12-18-2023 Note-s/p stent to RCA and ostial left main in 2019 -will increase to high intensity statin 40mg lipitor given she is done drinking -stop ASA and start eliquis 2.5mg BID for AF, ct plavix -noted to not be a good candidate for CABG given resp diseaseUnSelect [facility]12-18-2023 Note- stable, she is on supplemental O2 as needed - she may not be a great candidate for amiodaroneUniversHocking Valley [facility]12-18-2023 NoteNew patient here to establish care. She was recently discharged from [facility] for new onset afib. AC was not started. She has a right carotid stent that was placed years ago at [facility]. She does not still follow with vascular surgeon. She is transferring cardiology care from [facility] to [place]. Review of Systems Cardiovascular: Positive for dyspnea on exertion and leg swelling (RLE). Respiratory: Positive for cough and shortness of breath. All other systems reviewed and are negative.[facility] 04-12-2023 NoteUT Electrophysiology Consult Note Reason for [...] follow-up with cardiology and is switching to [facility] She was admitted to [facility] with new onset A-fib, alcohol withdrawal which was treated with benzodiazepines, sepsis, respiratory failure, COPD exacerbation all likely due to COVID infection, she was discharged 04/01/2023. 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 She states she has stopped drinking since [...] fibrillation (CMS/HCC) COPD (chronic obstructive pulmonary disease) (CMS/[facility]) Hyperlipidemia PSH: No past surgical history on [...] feeling safe in r (more content not included)...[facility]11-28-2023 Evaluation note* Encounter Date Diagnosis Assessment Notes [...] such as patterns or other associated symptoms [facility] Other 11-27-2023 Evaluation note* Encounter Date Diagnosis Assessment Notes Treatment Notes Treatment Clinical Notes Feb, Chronic pain (ICD-10 - G89.29) [facility] Other 11-06-2023 History of Present illness Narrative* [...] List Diagnosis Date Noted Amputation of leg ([facility]) 03/01/2023 History of right-sided carotid endarterectomy 03/01/2023 Arteriosclerosis of coronary artery 02/26/2023 Bilateral carotid bruits 02/26/2023 Chronic obstructive pulmonary disease ([facility]) 02/26/2023 Hyperlipidemia 02/26/2023 Ischemic cardiomyopathy 02/26/2023 Primary [...] vertebral flow Problems addressed today included atherosclerotic tetlin vessel coronary artery disease, hyperlipidemia, cerebrovascular disease, [...] MONTHS Adelaida Hargrove MD documented [facility] Work Phone: 1(767) 580-619111-06-2023 Instructions* Patient Instructions* Tran Morales LPN - [...] time of your visit. documented in this encounterPro[facility] Work Phone: 1([phone]) 111-991906-27-2023 Evaluation note* Encounter Date Diagnosis Assessment Notes [...] discussion, agrees with plan, denies any questions. [facility] Other 05-30-2023 Evaluation note* Encounter Date Diagnosis Assessment Notes Treatment Notes Treatment Clinical Notes August, Acute bacterial conjunctivitis of both eyes (ICD-10 - H10.33) [place] [facility] is contagious. Wash hands frequently and try not to rub eyes. Use warm wash cloth to keep them clean or to remove discharge from eyes. Use drops until eyes are clear then 3 more days August, PAD (peripheral artery disease) (ICD-10 - I73.9) Pt agrees to referral to [facility]. 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 She is established w pain management for this problem August, Acute non-recurrent maxillary sinusitis (ICD-10 - J01.00) agrees to antibiotic for sore throat. August, History of left abov e knee amputation (ICD-10 - Z89.612) August, Chronic pain (ICD-10 - G89.29) Reviewed OARRS report. Refilled rx. [facility] Other 05-30-2023 Evaluation note* Encounter Date Diagnosis Assessment Notes Treatment Notes Treatment Clinical Notes August, Chronic pain (ICD-10 - G89.29) [facility] Other 02-06-2023 Evaluation note* Encounter Date Diagnosis [...] Continue to cover and monitor area. Vaccuum barrel cleaner fell on her leg and it is tender. May, Lumbar degenerative disc disease (ICD-10 - M51.36) chronic pain due to lumbar issues and BKA amputation. will call when pain med refill is needed. [facility] Other 04-14-2022 History of Present illness Narrative* [...] Ejection fraction is typically been estimated at ahqxts00%. She indicates that her breathing has progressively worsened again. She does not believe there is been really any change to her pulmonary status. -[facility] 250 DO Work Phone: 1(673) 404-294304-14-2022 History of Present illness Narrative* Previously seen [...] profile lipid profile prior to next visit. [facility] 250 DO Work Phone: 1(504) 129-654604-14-2022 History of Present illness Narrative* Previously seen [...] Ejection fraction is typically been estimated at nvlyhh85%. She indicates that her breathing has progressively [...] profile lipid profile prior to next visit. [facility] Work Phone: [phone]) 758-151501-28-2022 NoteHNO ID: [id number] Author: Chavez Dillard MD Service: ? Author [...] interventional pain procedures: Seen pain management in [facility] Did an injection with no relief Dr [...] reproduction bilaterally. Extremities: Peripheral (more content not included)...[facility] 12-09-2020 NotePROCEDURE: MRI THIGH LT WO [...] Electronically authenticated by: JOSIE PARIS Date: 2020-12-09 16:49[facility]08-05-2021 NoteHISTORY AND PHYSICAL EXAMINATION HISTORY: This patient [...] be doing so in the near future. [facility] Signed and Approved by: ROXI MCCLENDON 11/28/2020 09:43:00[facility]08-05-2021 NoteOPERATIVE NOTE OPERATION DATE: 11-28-20 ANESTHETIC: Topical. [...] was injected into the anterior chamber and [facility] cell sponge was used to check the wounds to be water tight. One drop of apraclonidine and 1 drop of prednisolone acetate were placed into the eye and shield was placed over top. The patient was sent to the postoperative area in satisfactory condition to followup the following day for postoperative care. [facility] Signed and Approved by: ROXI MCCLENDON 12/26/2020 11:09:00[facility]07-06-2021 NotePAIN MANAGEMENT Consultation Date: 10-29-20 CHIEF COMPLAINT: [...] periosteum of the femur. cc:Dr. John Lentz. [facility] Signed and Approved by: DR DORA BELLA 11/05/2020 12:13:00[facility]07-01-2021 NoteHISTORY AND PHYSICAL EXAMINATION HISTORY: The patient [...] and go forward with her elective procedure. [facility] Signed and Approved by: ROXI MCCLENDON 10/24/2020 11:46:00[facility]07-01-2021 NoteOPERATIVE NOTE OPERATION DATE: 10-24-20 ANESTHETIC: Topical. [...] was injected into the anterior chamber and [facility] cell sponge was used to check the wounds to be water tight. One drop of apraclonidine and 1 drop of prednisolone acetate were placed into the eye and shield was placed over top. The patient was sent to the postoperative area in satisfactory condition to followup the following day for postoperative care. [facility] Signed and Approved by: ROXI MCCLENDON 11/27/2020 16:58:00[facility]06-22-2021 NotePAIN MANAGEMENT Consultation Date: 10-15-20 CHIEF COMPLAINT: Left bwtqw-zkz-xaar amputation stump pain. HISTORY OF PRESENT ILLNESS: [...] 2. Lumbar spondylosis. 3. Status post left lyyub-atr-blyt amputation 2018. 4. Stump pain. 5. Neuromatous [...] daughter understand and would like to proceed. [facility] Signed and Approved by: DR DORA BELLA 10/29/2020 10:44:00[facility]06-22-2021 NotePAIN MANAGEMENT PROCEDURE NOTE Date: 10-15-20 PRE AND POST PROCEDURE DIAGNOSIS: Neuromatous stump pain, neuromatous pain status post left ealnn-wzp-zfnd amputation. PROCEDURE NAME:Neuroma stump injection. PROCEDURE: Subsequent [...] pain symptomatology that would have been present. [facility] Signed and Approved by: DR DORA BELLA 10/29/2020 10:44:00[facility]04-26-2021 NotePAIN MANAGEMENT Consultation Date: 08-19-20 HISTORY OF [...] baclofen. Of note, the patient is on buttermaker anticoagulant medication, Plavix. On July 30 the [...] her pain. Dictated by Hemant Red APRN [facility] Signed and Approved by: HEMANT RED 08/26/2020 16:35:00[facility]03-08-2021 NoteCONSULTATION Consultation Date: 07/01/2020 PAIN MANAGEMENT CONSULTATION HISTORY OF PRESENT ILLNESS: This is a very pleasant 75-year-old female patient who comes to the [facility] for the very first time. [...] patient had stents July of 2018 at [facility]. Originally the patient was placed on Plavix [address] Arnold; however, Dr. Pitt in [place] took over the Plavix medication. The patient [...] the lumbar x-ray is without any deformities. [facility] Signed and Approved by: HEMANT RED 07/08/2020 17:02:00[facility]03-08-2021 NoteCONSULTATION Procedure Date: 07/01/2020 PROCEDURE NOTE: PREOPERATVE [...] signs were obtained and were stable. . [facility] Signed and Approved by: HEMANT RED 07/08/2020 17:03:00[facility]04-01-2019 History of Present illness Narrative* Mrs. Merritt [...] is completed. No change made to medications. -[facility] 250 DO Work Phone: Evaluation noteNo [employer] Other Evaluation note* Diagnosis Arteriosclerosis of coronary [...] right-sided carotid endarterectomy documented in this encounter [facility] Work Phone: History general Narrative - [...] Hospitalization History Suicide Hospitalization History See above [facility] Other Hisqtoq general Narrative - Reported* Type Description Date [...] Hospitalization History Suicide Hospitalization History See above [facility] Other Reason for referral (narrative)* Consultation (Routine) - Authorized Specialty Diagnoses / Procedures Referred By Contruben t Referred To Contact Cardiology Diagnoses Arteriosclerosis of coronary artery Procedures Follow Up In Cardiology Adelaida Hargrove MD [address] [place] [address] Adelaida Hargrove MD [address] [place] [address] Referral ID Status Reason Start Date Expiration Date V isits Requested Visits Authorized [id number] Authorized 03/01/2023 02/29/2024 1 1 [facility] Work Phone: Summary Purpose Family History [...] disease, unspecified COPD type (J44.9) Referral Organization [facility] iglesia Referring Provider First Name John Referring Provider Last Name Abhijeet Referring Provider Specialty [facility] Zesty Referred Organization [facility] Referred Provider RubioTahir Referred Address [address], [place],[address] Referred Provider Specialty Pulmonary Fidelina seases Referral Priority Routine General Notes Dai Aaron 07:48:28 AM >received today, attachments made, notes locked, referral faxed Clinical Notes p: [phone] f: [phone] Reason *Waiting for appt Former pt of Dr. Mejia - now has swelling and discoloration in R lower leg. Hx of L AKA Diagnosis 1 PAD (peripheral yuli ry disease) (I73.9) Referral Organization [facility] iglesia Referring Provider First Name John Referring Provider Last Name Abhijeet Referring Provider Specialty [facility] Referred Organization [facility] [place] Referred Provider Jaspreet Ventura Referred Address [address],[id number] Referred Provider Specialty Vascular April christianne Referral Priority Routine General Notes Dai Aaron 01:06:20 PM >received today, faxed P2P Additional Source Comments INFORMATION SOURCE (unrecogn ized section and content) DATE CREATED AUTHOR 01/02/2021 [facility] DATE CREATED AUTHOR AUTHOR'S ORGANIZ ATION 07/18/2021 [facility] DATE CREATED AUTHOR AUTHOR'S ORGANIZ ATION 02/27/2022 [facility] DATE CREATED AUTHOR AUTHOR'S ORGANIZ ATION 02/27/2022 [facility] DATE CREATED AUTHOR AUTHOR'S ORGANIZ ATION 04/17/2022 [facility] DATE CREATED AUTHOR AUTHOR'S ORGANIZ ATION 12/18/[address] [facility] DATE CREATED AUTHOR AUTHOR'S ORGANIZ ATION 03/02/2023 [facility] DATE CREATED AUTHOR AUTHOR'S ORGANIZ ATION 04/13/2023 [facility] REASON FOR VISIT (unrecogniz ed section and content) Reason Comments Follow-up 1 year Care Teams (unrecognized sec tion and content) [employer] Relationship Specialty Start Date End Date John Lentz MD [address] [place], [place] [id number] PCP - General 11/03/18 FOR RECORDS PERTAINING [...] BE BASED ON THE PRIMARY CLINICAL RECORDS. [employer] [facility]. provides no warranty or guarantee of the accuracy or completeness of information in this document.
--- NOTE | 2023-06-01 13:49 | P.HP_ITS ---
H&P: HPI History of Present Illness Chief complaint: SHORTNESS OF BREATH Narrative: Patient presented to the emergency room with a 3-day course of worsening shortness of breath. She been using her home aerosol treatments without improvement. In ER found to have bilateral lower lobe pneumonia. Patient admitted for workup and treatment of same Review of Systems ROS Status of ROS 10 or more systems reviewed and unremark able except as noted in history and below [facility] Medical History (Updated 06/01/23 @ 15:33 by Robert Barnhart MD) Right lower lobe lung mass ?R91.8 - Other nonspecific abnormal finding of lung field (ICD-10) Acute on chronic diastolic (congestive) heart failure ?I50.33 - Acute on chronic diastolic (congestive) heart failure (ICD-10) HTN (hypertension) ?I10 - Essential (primary) hypertension (ICD-10) Atrial fibrillation with RVR ?I48.91 - Unspecified atrial fibrillation (ICD-10) Acute and chronic respiratory failure with hypoxia ?J96.21 - Acute and chronic respiratory failure with hypoxia (ICD-10) COPD (chronic obstructive pulmonary disease) ?J44.9 - Chronic obstructive pulmonary disease, unspecified (ICD-10) Right leg injury ?S89.91XA - Unspecified injury of right lower leg, initial encounter (ICD-10) Pneumonia ?J18.9 - Pneumonia, unspecified organism (ICD-10) Chronic respiratory failure with hypoxia ?J96.11 - Chronic respiratory failure with hypoxia (ICD-10) Alcohol abuse ?F10.10 - Alcohol abuse, uncomplicated (ICD-10) New onset a-fib ?I48.91 - Unspecified atrial fibrillation (ICD-10) COVID-19 ?U07.1 - COVID-19 (ICD-10) HLD (hyperlipidemia) ?E78.5 - Hyperlipidemia, unspecified (ICD-10) PAD (peripheral artery disease) ?I73.9 - Peripheral vascular disease, unspecified (ICD-10) Oxygen dependent ?Z99.81 - Dependence on supplemental oxygen (ICD-10) Surgical History (Updated 04/22/23 @ 14:44 by Vanita Maloney) History of carpal tunnel surgery ?Z98.890 - Other specified postprocedural states (ICD-10) H/O: hysterectomy ?Z90.710 - Acquired absence of both cervix and uterus (ICD-10) Amputated left leg ?S88.912A - Complete traumatic amputation of left lower leg, level unspecified, initial encounter (ICD-10) Social History Within the past year, how often did you have a drink containing alcohol: 4 or more times a week Within the past year, how many standard drinks containing alcohol did you have on a typical day: 3 or 4 Within the past year, how often did you have six or more drinks on one occasion: weekly Total score: 5 Score interpretation: A score of 3 or more indicates drinking is likely to affect patient's safety. Smoking status: Former smoker Highest level of school completed/degree received: high school graduate Do you think of yourself as: straight/heterosexual Gender Identity: female Meds Home Medications and Allergies Home Medications Medication Instructions Recorded Confirmed Type albuterol 90 mcg/actuation aerosol 90 mcg inhalation .q 4 hours PRN 03/27/23 06/01/23 History inhaler sob budesonide-formoterol HFA 160 2 inh inhalation Q12H 03/27/23 06/01/23 History mcg-4.5 mcg/actuation aerosol inhaler (Symbicort) docusate sodium 100 mg capsule 100 mg PO BID 03/27/23 06/01/23 History duloxetine 60 mg capsule,delayed 60 mg PO DAILY 03/27/23 06/01/23 History release gabapentin 800 mg tablet 800 mg PO TID 03/27/23 06/01/23 History nitroglycerin 0.4 mg sublingual 0.4 mg sublingual Q5M PRN chest 03/27/23 06/01/23 History tablet pain oxycodone 10 mg tablet 10 mg PO Q6H PRN pain 03/27/23 06/01/23 History pantoprazole 40 mg tablet,delayed 40 mg PO DAILY 03/27/23 06/01/23 History release tizanidine 4 mg tablet 4 mg PO TID PRN muscle spasticity 03/27/23 06/01/23 History apixaban 2.5 mg tablet (Eliquis) 2.5 mg PO BID 04/22/23 06/01/23 History atorvastatin 40 mg tablet 40 mg PO .qhs 06/01/23 06/01/23 History clopidogrel 75 mg tablet 75 mg PO DAILY 06/01/23 06/01/23 History furosemide 40 mg tablet 40 mg PO DAILY 06/01/23 06/01/23 History lorazepam 0.5 mg tablet 0.5 mg PO BID PRN anxiety 06/01/23 06/01/23 History metoprolol succinate 25 mg 25 mg PO DAILY 06/01/23 06/01/23 History tablet,extended release 24 hr spironolactone 25 mg tablet 25 mg PO DAILY 06/01/23 06/01/23 History Allergies Allergy/AdvReac Type Severity Reaction Status Date / Time vancomycin Allergy Intermediate Rash Verified 06/01/23 10:34 Exam Constitutional Vital Signs, click to edit/add: Last Vital Signs Temp 98.1 F 06/01/23 10:27 Pulse 95 H 06/01/23 13:31 Resp 14 06/01/23 13:31 BP 92/78 06/01/23 13:31 Pulse Ox 93 L 06/01/23 13:31 O2 Del Method Nasal Cannula 06/01/23 13:31 O2 Flow Rate 3 06/01/23 13:31 Documenting provider has reviewed patient's vital signs: yes Common normals: apparent distress (Moderate respiratory distress with moderate conversational dyspnea) Chest Common normals: inspection of chest normal Respiratory Common normals: no retractions; abnormal respiratory effort Effort & inspection: tachypneic and respiratory distress Auscultation: rhonchi, wheezes and diminished lung sounds Cardio Common normals: regular rate Rhythm: abnormal rhythm GI Common normals: Normal to inspection, nondistended, normoactive bowel sounds present Results Labs Labs: Short CBC 06/01/23 Range/Units 10:35 WBC 6.8 (4.0-11.0) 10^3/uL Hgb 11.0 L (12.0-16.0) g/dL Hct 35.9 L (36.0-48.0) % Plt Count 318 (150-450) 10^3/uL BMP 06/01/23 10:35 Sodium 141 Potassium 4.0 Chloride 106 Carbon Dioxide 25.7 BUN 7.0 Creatinine 0.83 Glucose 122 H Calcium 9.0 Liver Function 06/01/23 Range/Units 10:35 Total Bilirubin 0.5 (0.2-1.0) mg/dL Direct Bilirubin 0.1 (0.0-0.2) mg/dL AST 18 (15-37) U/L ALT 14 (14-59) U/L Alkaline Phosphatase 97 (46-116) U/L Albumin 3.0 L (3.4-5.0) g/dL Assessment and Plan Assessment and Plan (1) Community acquired pneumonia: Assessment and Plan: Acquired bilateral lower lobe pneumonia-failed outpatient treatment. Also acute exacerbation of her COPD. Steroids, aerosols, try IPV, patient is on her baseline supplemental oxygen of 3 L but still with significant dyspnea. Possible rapid discharge tomorrow if improved since she is at her baseline O2 already try to obtain sputum culture (2) HTN (hypertension): Assessment and Plan: Continue with home medications Qualifiers: Hypertension type: primary hypertension Qualified Code(s): I10 - [place] tial (primary) hypertension (3) COPD (chronic obstructive pulmonary disease): Assessment and Plan: Acute exacerbation of the COPD secondary to acute bilateral pneumonia Qualifiers: COPD type: COPD with acute exacerbation Qualified Code(s): J44.1 - Chronic obstructive pulmonary disease with (acute) exacerbation (4) Chronic respiratory failure with hypoxia: Assessment and Plan: O2 dependent for her COPD. 3 L baseline (5) Oxygen dependent: (6) Atrial fibrillation with RVR: Assessment and Plan: A little tachycardic but could be related to her dyspnea. Monitor closely check BNP and high-sensitivity troponin (7) Hyperglycemia: Assessment and Plan: I treated as an outpatient but has had hyperglycemia-steroid induced in the past. Place patient on insulin sliding scale and Accu-Cheks before meals and at bedtime Plan Try to treat patient fairly aggressively. Started off as observation status since she is not having any change in her degree of hypoxia. Currently at [facility] 3 L. Better than 50% chance she will be discharged home tomorrow
[2023-06-01 14:21] LABS: Lactate/Lactic Acid 1.6 mmol/L (0.4-2.0)
[2023-06-01 14:22] LABS: Troponin I High Sensitivity 6.6 pg/mL (4.0-51.3)
[2023-06-01 16:08] LABS: Glucometer 214 mg/dL (74-106)
[2023-06-01] MEDS: SODIUM CHLORIDE 0.9% INHALATION 3 ML NEB 6 ML IH (17:43)
[2023-06-01] MEDS: IPRATROPIUM/ALBUTEROL SULFATE 3 ML AMPUL.NEB IH ×2 (17:50→22:35)
[2023-06-01] MEDS: PIPERACILLIN SODIUM/TAZOBACTAM 3.375 GM in 0.9 % SODIUM CHLORIDE 50 ML IV (18:12)
[2023-06-01] MEDS: INSULIN ASPART 300 UNIT/3 ML PEN SUBQ ×2 (18:13→22:12)
[2023-06-01] MEDS: OXYCODONE HCL 5 MG TABLET 10 MG PO (18:21)
[2023-06-01] MEDS: ACETAMINOPHEN 500 MG TABLET 1000 MG PO (18:21)
[2023-06-01 20:42] LABS: Glucometer 193 mg/dL (74-106)
[2023-06-01] MEDS: ATORVASTATIN CALCIUM 40 MG TABLET PO (21:04)
[2023-06-01] MEDS: GABAPENTIN 400 MG CAPSULE 800 MG PO (21:04)
[2023-06-01] MEDS: APIXABAN 5 MG TABLET 2.5 MG PO (21:04)
[2023-06-01] MEDS: DOCUSATE SODIUM 100 MG CAPSULE PO (21:04)
[2023-06-01] MEDS: BUDESONIDE 0.5 MG/2 ML AMPULE NEB IH (22:34)
[2023-06-02] VITALS (20 sets, daily range): BP systolic 96–142; BP diastolic 57–94; PULSE 85–125; RESP 18–20; TEMP 36.4–36.7; O2SAT 90–98
[2023-06-02] MEDS: PIPERACILLIN SODIUM/TAZOBACTAM 3.375 GM in 0.9 % SODIUM CHLORIDE 50 ML IV ×3 (00:35→16:32)
[2023-06-02] MEDS: IPRATROPIUM/ALBUTEROL SULFATE 3 ML AMPUL.NEB IH ×4 (04:47→22:32)
[2023-06-02 05:38] LABS: Hematocrit 36.4 % (36.0-48.0); Hemoglobin 10.7 g/dL (12.0-16.0); Immature Granulocytes Abs Auto 0.01 10^3/uL (0.00-0.03); Immature Granulocytes Pct Auto 0.3 % (0.0-0.5); Lymphocytes Absolute Auto 0.5 10^3/uL (1.2-3.8); Lymphocytes Percent Auto 15.5 % (20.5-60.0); Mean Corpuscular HGB Conc 29.4 g/dL (29.9-35.2); Mean Corpuscular Hemoglobin 29.3 pg (26.7-34.0); Mean Corpuscular Volume 99.7 fL (81.0-99.0); Mean Platelet Volume 10.6 fL (9.5-13.5); Monocytes Absolute Auto 0.1 10^3/uL (0.3-0.8); Neutrophils Absolute Auto 2.9 10^3/uL (1.4-6.5); Neutrophils Percent Auto 82.2 % (43.0-75.0); Platelet Count 317 10^3/uL (150-450); Red Blood Count 3.65 10^6/uL (4.20-5.40); White Blood Count 3.5 10^3/uL (4.0-11.0)
[2023-06-02] MEDS: METHYLPREDNISOLONE SOD SUCC PF 125 MG/2 ML VIAL IVP (06:06)
[2023-06-02] MEDS: OMEPRAZOLE 40 MG CAPSULE.DR PO (06:08)
[2023-06-02] MEDS: GABAPENTIN 400 MG CAPSULE 800 MG PO ×3 (06:08→21:13)
[2023-06-02 06:17] LABS: Alanine Aminotransferase 16 U/L (14-59); Albumin Globulin Ratio 0.8; Alkaline Phosphatase 88 U/L (46-116); Aspartate Amino Transferase 13 U/L (15-37); BUN Creatinine Ratio 13.5; Bilirubin Total 0.4 mg/dL (0.2-1.0); Calcium 9.1 mg/dL (8.5-10.1); Carbon Dioxide 26.2 mmol/L (21.0-32.0); Chloride 107 mmol/L (98-107); Estimated GFR (African America >60 (>=60); Estimated GFR (Non-African Ame >60 (>=60); Globulin 3.8 g/dL; Glucose 246 mg/dL (74-106); Potassium 4.2 mmol/L (3.5-5.1); Sodium 140 mmol/L (136-145); Total Protein 6.8 g/dL (6.4-8.2); Troponin I High Sensitivity 8.1 pg/mL (4.0-51.3)
--- NOTE | 2023-06-02 07:03 | CA_ITS ---
Patient Name: SANCHEZ SAMSON MR#: [id number] : 1945 Exam Date: 06/02/2023 Ordering Doctor: DR Robert Barnhart . ECHOCARDIOGRAM REPORT PROCEDURE: CA ECHO LIMITED INDICATIONS: Elevated BNP, atrial fibrillation, breast implant COMPARISON: None. DESCRIPTION: Limited ECHOCARDIOGRAM Real-time transthoracic echocardiography with 2D and M-mode performed. QUALITY: Technical quality was good. 63 , 126#, BSA 1.59 m2 LEFT VENTRICLE: Small chamber size. Normal left ventricular wall thickness. LV EF: Global left ventricular systolic function is hyperdynamic; visually estimated ejection fraction is 65 to 70%. No obvious wall motion abnormalities. LEFT ATRIUM: Severe dilatation. RIGHT ATRIUM: Moderate dilatation. RIGHT VENTRICLE: Normal chamber size. Normal systolic function. TRICUSPID VALVE: Normal mobility and thickness. MITRAL VALVE: Normal mobility and thickness. AORTIC VALVE: Normal trileaflet appearance. No visible sclerosis. Normal leaflet mobility. AORTIC ROOT: Poorly seen. PULMONIC VALVE: Normal thickness and mobility. PERICARDIUM: Trivial pericardial effusion. IVC: IVC is normal in size, does not fully collapse. CONCLUSION: 1. Global left ventricular systolic function is hyperdynamic; visually estimated ejection fraction is 65 to 70% 2. Normal right ventricular size and systolic function 3. Biatrial enlargement 4. Trivial pericardial effusion A limited echocardiogram was performed Adult Echocardiography Procedure Report Left Ventricle LVEDD (3.7 - 5.6 cm): 3.70 cm LVESD (2.2 - 4.0 cm): 2.98 cm LVIVS thickness (0.6 - 1.2 cm): 0.98 cm LVPW thickness (0.5 - 1.0 cm): 1.00 cm LVOT Diameter 1.93 cm Left Atrium LA Volume Index (2D A2C): 52.03 ml/m2 Left Atrium Systolic Dimension: 3.77 cm Mitral Valve Right Ventricle Aorta AO Root Diam: 3.06 cm Aortic Valve Tricuspid Valve Pulmonic Valve Right Atrium Right Atrium Systolic Pressure: 80.07 ml, 80.07 ml Dictated by: Guido Ny M.D. on 06/02/2023 at 09:48 Approved by: Guido Ny M.D. on 06/02/2023 at 09:51
[2023-06-02] MEDS: INSULIN ASPART 300 UNIT/3 ML PEN SUBQ ×2 (07:55→21:12)
[2023-06-02] MEDS: DOCUSATE SODIUM 100 MG CAPSULE PO ×2 (08:02→21:13)
[2023-06-02] MEDS: OXYCODONE HCL 5 MG TABLET 10 MG PO (08:02)
[2023-06-02] MEDS: APIXABAN 5 MG TABLET 2.5 MG PO ×2 (08:02→21:13)
[2023-06-02] MEDS: FUROSEMIDE 40 MG/4 ML VIAL 60 MG IVP (08:03)
[2023-06-02] MEDS: SPIRONOLACTONE 25 MG TABLET PO (08:13)
[2023-06-02] MEDS: CLOPIDOGREL BISULFATE 75 MG TABLET PO (08:14)
[2023-06-02] MEDS: DULOXETINE HCL 60 MG CAPSULE.DR PO (08:14)
--- OUTSIDE RECORDS SUMMARY | 2023-06-02 08:38 | XMS_ITS | CCD ---
Author Name Unknown Address [address] [place] [address] Organization [facility] Care Team Providers Care Fur Joiner Name Role Phone SELVIN, DR DORA Buenrostro Admitting Unavailable CLINKER, HEMANT Consulting Unavailable LENTZ, DR JOHN Brown Primary Care Unavailable SELVIN, DR DORA Buenrostro Attending Unavailable SELVIN, DR DORA Buenrostro Admitting Unavailable LENTZ, DR JOHN Brown Primary Care Unavailable BELLA, DR DORA Buenrostro Consulting Unavailable SELVIN, DR ODRA Buenrostro Attending Unavailable SELVIN, DR DORA Buenrostro [...] Unavailable DORKOSKLUIS, SEMAJ Consulting Unavailable SELVIN, DR DOAR Buenrostro Admitting Unavailable SELVIN, DR DORA Buenrostro Consulting Unavailable LENTZ, DR JOHN Brown Primary Care Unavailable SELVIN, DR DORA Buenrostro Attending Unavailable CLINKER, HEMANT Consulting Unavailable CLINKER, HEMANT Attending Unavailable CLINKER, HEMANT Admitting Unavailable LENTZ, DR JOHN Brown Primary Care Unavailable CAROLINE, DR LORENA Tirado Consulting Unavailable CLINKER, HEMANT [...] Care Unav ailable Abhijeet, Dr. John Melgoza [facility] Unav ailable Jimmy, Dr. Tracey De La Cruz Attending Unavail able Lyster, Dr. Tracey De La Cruz Referring Unavail able Lyster, Dr. Tracey De La Cruz Attending Unavail able Lyster, Dr. Tracey De La Cruz Referring Unavail able Lentz, Dr. John Melgoza [facility] Unav ailable Delvin, Dr. Son Attending Unavailable Abhijeet, Dr. John Melgoza [facility] Palomav ailJohn Vick Unavailable Margy Olivas Unavailable Margy Olivas Attending Unavailable Margy Olivas Admitting Unavailable John Lentz Primary Care Unavailable John Lentz MD Primary Care Provider ADELAIDA HARGROVE Attending Unavailable JOHN LENTZ Primary Care Unavaila OMKAR Jorgensen Attending Unavailable Allergies Allergy Classification Reported Allergen(s) Allergy Type Date of Onset Reaction(s) Facility (15 sources) Bacitracin; Translations: [BACITRACIN] Drug Allergy 07-19-19 21 Unknown [facility] Repository (2 sources) Neomycin; Translations: [NEOMYCIN] Drug Allergy 07-19-19 21 [facility] Repository (3 sources) Vancomycin; Translations: [VANCOMYCIN] Drug Allergy 01-17-20 15 [facility] Repository (1 source) Polymyxin B Drug allergy (disorder) 07-19-19 21 [facility] Repository (20 sources) Vancomycin; Translations: [vancomycin] Drug Allergy 07-21-19 14 [facility] (20 sources) Aminoglycosides (Antibiotic) Propensity to adverse reactions Unknown [facility] Other (9 sources) Bacitracin Drug Allergy Unknown [facility] Other (20 sources) Neomycin Drug Allergy Unknown [facility] Other (20 sources) Polymyxin B Drug Allergy Unknown [facility] Other (15 sources) Contrast media Propensity to adverse reactions 07-21-19 14 Unknown [facility] Other (15 sources) Erythromycin Drug Allergy Unknown [facility] Other (15 sources) fluticasone / salmeterol Drug Allergy 09-11-19 16 Unknown [facility] Other (14 sources) influenza A virus (H1N1) antigen / influenza A virus (H3N2) antigen / influenza B virus antigen Drug Allergy Comment:Flu Injection [facility] Other (15 sources) traMADol Drug Allergy 10-17-19 15 Unknown [facility] Other (15 sources) Advair Diskus *ANTIASTHMATIC AND BRONCHODILATOR AG Propensity to adverse reactions Unknown [facility] Other (7 sources) patient allergy list reviewed by nurse or physicia Propensity to adverse reactions 09-22-19 18 Comment:Done [facility] Other (15 sources) Dyes Propensity to adverse reactions Comment:CT DYE [facility] Other (7 sources) Allergies Reconciled Propensity to adverse reactions Unknown [facility] Other (15 sources) TraMADol & Dietary Manage Prod *ANALGESICS - OPIOI Propensity to adverse reactions Unknown [facility] Other (15 sources) Vaccine product containing Influenza virus antigen (medicinal product) Drug allergy 03-03-20 17 Unknown [facility] Other (15 sources) Contraindication to Flu Injection Propensity to adverse reactions 08-18-19 18 Comment:advers e rxn/side effects [facility] Other (1 source) Aminoglycosides (Antibiotic) Drug allergy (disorder) 10-25-19 [facility] Repository (1 source) Vancomycin Drug Allergy 10-25-19 [facility] Repository (1 source) Flucelvax Quadrivalent Drug allergy Comment:Flu Injection [facility] Other (1 source) POLYMYXIN B SULFATE-HC; Translations: [POLYMYXIN B SULFATE-HC] Propensity to adverse reactions to drug (disorder) 08-29-19 [facility] Repository Medications Current Medications Medication Drug Class(es) Dates Sig (Normalized) Sig (Original) [id number] actuat albuterol 0.09 mg/actuat metered dose [...] Active Start: 05-26-2021 take 1 capsule by [facility] twice daily DULoxetine HCl - 30 MG Oral Capsule Delayed Release Particles TAKE 1 CAPSULE TWICE DAILY. Quantity: 0 Refills: 0 Ordered: 26-May-2021 DO Start : 26-May-2021 Active take 1 capsule by [facility] every twenty-four hours Cymbalta 60 [...] Start: 06-01-2022 take 2 tablets by [facility] every twenty-four hours predniSONE 20 MG [...] disease (20 sources) Atherosclerotic heart disease of [place] coronary artery without angina pectoris; Translations: [Coronary arteriosclerosis] Onset: 08-25-2018 03-01-2023 Chronic Coronary atherosclerosis and other heart disease (10 sources) Stented coronary artery; Translations: [Percutaneous transluminal coronary angioplasty status] Onset: 02-26-2023 03-01-2023 Episodic Coronary atherosclerosis and other heart disease (1 source) Coronary atherosclerosis and other heart disease; Translations: [Atherosclerosis of [place] arteries of extremities with intermittent claudication, right [...] 07-20-2013 Chronic Other aftercare (1 source) 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; Translations: [OTH CARE HOME CURRENT DRUG THERAPY] Onset: 11-06-2020 Episodic Other aftercare (7 sources) Long-term current use of inhaled steroid; Translations: [buttermaker continuous churn (current) use of inhaled steroids] Episodic Other aftercare (7 sources) Long-term current use of anticoagulant; Translations: [buttermaker continuous churn (current) use of anticoagulants] Episodic Other bone [...] Onset: 12-17-2016 Episodic Other aftercare (1 source) buttermaker continuous churn (current) use of anticoagulants; Translations: [CARE HOME [...] Range Facility Office Visiton 04-12-2023 Follow-up visit [id number] Sanchez Merritt 1945 F Date Provider Department Center 04/12/2023 Jassi6-OMKAR VICTOR CARD L[facility] No family history on file Level of Service:54732 [place] OFFICE/OUTPATIENT ESTABLISHED MOD MDM 30 MIN Normal [facility] US UNI ankle/arm indiceson 0 12-17-2022 US UNI ankle/arm indices [facility] [place] [address] Ultrasound Report Signed Patient: Sanchez Merritt MR#: [id number] : 1945 Acct:[id number] Age/Sex: 77 / F ADM Date: 11/17/22 Loc: [facility] Room: Type: [facility] Attending Dr: Margy Olivas MATHEMATICAL PHYSICIST-C Ordering Provider: Margy Olivsa APRN Date of Service: 11/17/22 US/US UNI [...] Lauro Heard MD12/17/2022 2:11 PM Dictation Location: [id number] Tech: Julia Ortegaley Transcribed By: BILLIE 12/17/221410 Dictated By: Lauro Heard MD 12/17/221409 Signed By: 12/17/221410 [facility] LAB Carotid Artery Dupl ex Ultrasounon 04-13-2022 [facility] LAB Carotid Artery Duplex Ultrasoun [address], [address] [place] [address] Vascular Lab Report Carotid Artery Duplex Ultrasound Patient Name: SANCHEZ Regis Melara Physician: [id number] [address] [facility] Study Date: 04/13/2022 Referring ADELAIDA HARGROVE Physician: MRN/PID: [id number] PCP: John Lentz Accession/Order#: [id number] CC Report to: Cooper Arnold Date of : 1945 Technologist: Jillian Gonzalez RD, 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, HTN, Hyperlipidemia, Former Smoker, Ischemic Cardiomyopathy, COPD, PTCA-07/2018 Procedure/CPT: 29536 Cerebrovascular Carotid Duplex scan complete-23577 CONCLUSIONS: Right Carotid: Findings are consistent with [...] cm/s Right Left ICA/CCA Ratio 0.5 0.8 [address] [address] MD, FACC Final Normal [facility] VASC LAB Carotid Artery Dupl ex Ultrasoundon 04-13-2022 US.doppler Carotid arteries [facility] Virdia DO Work Phone: Height or Weight NOT Doneon 02-26-2022 Fall risk assessment a) No falls within the last year [facility] Marvin 250 DO Work Phone: Tobacco use status CPHS b) No [facility] Marvin 250 DO Work Phone: Office Visit (Cardiology)on [...] stenting (more content not included)... Normal [facility] CARDIAC STRESS/REST INJE CTIONon 08-19-[address] [facility] CARDIAC STRESS/REST INJECTION Patient Name: SANCHEZ MERRITT STUDY: MYOCARDIAL PERFUSION STRESS TEST WITH LEXISCAN Performing facility: [facility], [address], [address], [place] [address] [facility] Provider: Tracey Pitt DO, [facility] PCP: Dr. Young Lnetz Supervising provider: Ludwig South MD, [facility] INDICATION: CAD; ICM SOB; HISTORY: Gender: F; Age: 76 y/o ; Height: 160.02 cm; Weight: 58.603770 kg. High Cholesterol; CAD; SOB; COPD; Quit smoking 12 years ago. Cardiac catheterization on 2018. PTCA on 2018. COMPARISON: No comparison. ACCESSION NUMBER(S): [id number]; [id number]; [id number] ORDERING CLINICIAN: TRACEY PITT TECHNIQUE: ONE DAY [...] Electronically signed by: GHULAM RIVERA MD Normal [facility] No Panel Informationon 08-19 Normal [facility] 250 DO Work Phone: Office [...] Status:Hold For - Scheduling,Retrospecti ve Authorization; Requested for:[id number]; Radiologist to Determine Optimal Study : Y What are the patient's signs and symptoms? 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 Respiratory: (more content not included)... Normal [facility] Tobacco Screening.on 022 Adult depression screening assessment Yes [facility] 250 DO Work Phone: Fall risk assessment a) No falls within the last year [facility] 250 DO Work Phone: Tobacco use status [facility] b) No [facility] DO Work Phone: Tobacco Screening. 2-More than half the days [facility] DO Work Phone: Tobacco Screening. 1-Several days [facility] 250 DO Work Phone: Tobacco Screening. 0-Not at all [facility] 250 DO Work Phone: Tobacco Screening. 3-Nearly every day [facility] 250 DO Work Phone: Tobacco Screening. Somewhat Difficult -[facility] DO Work Phone: Wily 05-23-2021 [facility] SANCHE[facility] ([id number]) 1945 F Date Time Provider Department 05/23/21 [...] interventional pain procedures: Seen pain management in [facility] Did an injection with no relief Dr [...] radicular pain. (more content not included)... Normal [facility] CNPNon 05-23-2021 [facility] Telephone (AJ) SANCHEZ MERRITT ([id number]) 1945 F Date Time Provider Department 05/23/21 [...] be called to [facility] in [place]. States it was discussed at last OV. Please advise. Cleopatra King LPN 05/28/2021 11:50 AM Signed Called the patient and advised that normally Lien Hughes LPN 05/28/2021 12:02 PM Signed Tens unit was sent to [facility]. Cleopatra King LPN 05/28/2021 1:25 PM Signed Patient was notified that order was sent to [facility] and they would contact her. Allergies [...] Status:Closed by CLEOPATRA KING on 05/28/21 Normal [facility] Covid-19 PCR (CVDTBH)on SARS-CoV-2 (COVID-19) RNA MEENAKSHI+probe Ql (Unsp spec) Not detected Normal NOT DETECTED [facility] Comment on above: Result Comment: This test is not yet approved or cleared by the [place] FDA. When there are no FDA-approved or cleared tests available, and other criteria are met, FDA can make tests available under an emergency access mechanism called an Emergency Use Authorization (EUA). The EUA for this test is supported by the Counter Professional of Health and Human Service's (HHS's) declaration [...] with SARS-CoV-2. Performed By: #### [facility] ####[facility] [id number] [place] XR LSPINE W_OBLS AND FLEX_EX [...] LORENA LATIF Date: 2020-07-02 15:09 Normal [facility] CT CHEST HI RESOLUTIONon CT CHEST HI [...] by: JOSIE PARIS Date: 2020-06-18 14:59 Normal [facility] XR CHEST 2 Von 02-29-2020 XR [...] by: JOSIE PARIS Date: 2020-02-29 09:04 Normal [facility] Vital Signs Date Time Vital Sign Value Performing Clinician Facility 04-29-2023 13:00-0500 Body height 156.21 cm John Lentz Other [facility] Other 04-29-2023 13:00-0500 Body mass index (BMI) [Ratio] 24.16 kg/m2 John Lentz Other [facility] Other 04-29-2023 13:00-0500 Body weight 58.97 kg John Lentz Other [facility] Other 04-29-2023 13:00-0500 Diastolic blood pressure 76 mm[Hg] John Lentz Other [facility] Other 04-29-2023 13:00-0500 SaO2% (BldA) [Mass fraction] 86 % John Lentz Other [facility] Other 04-29-2023 13:00-0500 Systolic blood pressure 109 mm[Hg] John Lentz Other [facility] Other 04-15-2023 15:45-0500 Body height 156.21 cm John Lnetz Other [facility] Other 04-15-2023 15:45-0500 Body mass index (BMI) [Ratio] 24.16 kg/m2 John Lentz Other [facility] Other 04-15-2023 15:45-0500 Body weight 58.97 kg John Lentz Other [facility] Other 04-15-2023 15:45-0500 Diastolic blood pressure 72 mm[Hg] John Lentz Other [facility] Other 04-15-2023 15:45-0500 SaO2% (BldA) [Mass fraction] 95 % John Lentz Other [facility] Other 04-15-2023 15:45-0500 Systolic blood pressure 103 mm[Hg] John Lentz Other [facility] Other 03-01-2023 14:00-0500 Diastolic blood pressure 68 mm[Hg] Adelaida Hargrove MD Work Phone: [facility] 03-01-2023 14:00-0500 Heart rate 68 /min Adelaida Hargrove MD Work Phone: [facility] 03-01-2023 14:00-0500 Systolic blood pressure 110 mm[Hg] Adelaida Hargrove MD Work Phone: [facility] 10-20-2022 13:15-0400 Body height 156.21 cm Margy Olivas Other [facility] Other 10-20-2022 13:15-0400 Body mass index (BMI) [Ratio] 24.16 kg/m2 Margy Olivas Other [facility] Other 10-20-2022 13:15-0400 Body temperature 96.9 [degF] Margy Olivas Other [facility] Other 10-20-2022 13:15-0400 Body weight 58.97 kg Margy Olivas Other [facility] Other 10-20-2022 13:15-0400 Diastolic blood pressure 60 mm[Hg] Margy Olivas Other [facility] Other 10-20-2022 13:15-0400 SaO2% (BldA) [Mass fraction] 93 % Margy Olivas Other [facility] Other 10-20-2022 13:15-0400 Systolic blood pressure 110 mm[Hg] Margy Olivas Other [facility] Other 09-22-2022 10:00-0400 Body height 156.21 cm John Lentz Other [facility] Other 09-22-2022 10:00-0400 Body mass index (BMI) [Ratio] 24.16 kg/m2 John Lentz Other [facility] Other 09-22-2022 10:00-0400 Body weight 58.97 kg John Lentz Other [facility] Other 09-22-2022 10:00-0400 Diastolic blood pressure 68 mm[Hg] John Lentz Other [facility] Other 09-22-2022 10:00-0400 Systolic blood pressure 117 mm[Hg] John Lentz Other [facility] Other 06-01-2022 11:15-0500 Body height 156.21 cm John Lentz Other [facility] Other 06-01-2022 11:15-0500 Body mass index (BMI) [Ratio] 24.16 kg/m2 John Lentz Other [facility] Other 06-01-2022 11:15-0500 Body weight 58.97 kg John Lentz Other [facility] Other 06-01-2022 11:15-0500 Diastolic blood pressure 60 mm[Hg] John Lentz Other [facility] Other 06-01-2022 11:15-0500 SaO2% (BldA) [Mass fraction] 92 % John Lentz Other [facility] Other 06-01-2022 11:15-0500 Systolic blood pressure 102 mm[Hg] John Lentz Other [facility] Other 02-26-2022 15:00-0400 Body height 160.02 cm John Lentz Work Phone: [facility] DO Work Phone: 02-26-2022 15:00-0400 Body mass index (BMI) [Ratio] Medical Reason Not Done John Lentz Work Phone: [facility] DO Work Phone: 02-26-2022 15:00-0400 Diastolic blood pressure 60 mm[Hg] John Lnetz Work Phone: [facility] DO Work Phone: 02-26-2022 15:00-0400 Heart rate 80 /min John Lentz Work Phone: [facility] DO Work Phone: 02-26-2022 15:00-0400 Systolic blood pressure 122 mm[Hg] John Lentz Work Phone: [facility] DO Work Phone: 08-19-2021 12:00-0400 72 1 John Lentz Work Phone: [facility] DO Work Phone: Comment on above: [id number] 08-07-2021 14:55-0400 Body height 160.02 cm John Lentz Work Phone: [facility] DO Work Phone: 08-07-2021 14:55-0400 Diastolic blood pressure 68 mm[Hg] John Lentz Work Phone: [facility] DO Work Phone: 08-07-2021 14:55-0400 Heart rate 89 /min John Lentz Work Phone: [facility] DO Work Phone: 08-07-2021 14:55-0400 Systolic blood pressure 114 mm[Hg] John Lentz Work Phone: [facility] DO Work Phone: 08-07-2021 14:55-0400 10 1 John Lentz Work Phone: [facility] DO Work Phone: Comment on above: PHQ-9 TS Encounters Encounter Date Encounter Type Care Provider Facility Start: 05-17-2023 End: 05-17-2023 ambulatory John Abhijeet Other [facility] Other Start: 05-17-2023 Telephone encounter John Abhijeet [facility] Start: 04-30-2023 End: 04-30-2023 ambulatory John Abhijeet Other [facility] Other Start: 04-30-2023 Telephone encounter John Abhijeet [facility] Start: 04-29-2023 End: 04-29-2023 ambulatory John Abhijeet Other [facility] Other Start: 04-29-2023 Office outpatient vi sit 25 minutes John Abhijeet [facility] Start: 04-29-2023 Telephone encounter John Lentz [facility] Start: 04-27-2023 End: 04-27-2023 ambulatory John Abhijeet Other [facility] Other Start: 04-27-2023 Telephone encounter John Lentz [facility] Start: 04-15-2023 End: 04-15-2023 ambulatory John Abhijeet Other [facility] Other Start: 04-15-2023 Office outpatient vi sit 25 minutes John Abhijeet [facility] Start: 04-14-2023 End: 04-14-2023 ambulatory John Abhijeet Other [facility] Other Start: 04-14-2023 Telephone encounter John Lentz [facility] Start: 04-12-2023 End: 04-12-2023 ambulatory [facility] Start: 04-02-2023 End: 04-02-2023 ambulatory John Lentz Other [facility] Other Start: 04-02-2023 Telephone encounter Johnabimael Lentz [facility] Start: 03-23-2023 (Televisit) Televisit John Abhijeet [facility] Start: 03-23-2023 End: 03-23-2023 ambulatory John Lentz Other [facility] Other Start: 03-22-2023 End: 03-22-2023 ambulatory John Lentz Other [facility] Other Start: 03-22-2023 Telephone encounter John Abhijeet [facility] Start: 03-01-2023 End: 03-01-2023 ambulatory [facility] Start: 03-01-2023 End: 03-01-2023 Office outpatient visit 25 minutes Adelaida Hargrove MD Work Phone: [facility] Comment on above: Arteriosclerosis of coronary artery (Primary Dx); Bilateral carotid bruits; Hyperlipidemia, unspecified hyperlipidemia type; Ischemic cardiomyopathy; Primary hypertension; Stented coronary artery; Chronic obstructive pulmonary disease, unspecified COPD type (CMS/HCC); Wheelchair dependent; Amputation of leg (CMS/HCC); History of right-sided carotid endarterectomy Start: 01-27-2023 End: 01-27-2023 ambulatory John Lentz Other [facility] Other Start: 01-27-2023 Telephone encounter John Abhijeet [facility] Start: 01-25-2023 End: 01-25-2023 ambulatory John Lentz Other [facility] Other Start: 01-25-2023 Telephone encounter John Abhijeet [facility] Start: 01-08-2023 End: 01-08-2023 ambulatory John Lentz Other [facility] Other Start: 01-08-2023 Telephone encounter John Abhijeet [facility] Start: 12-02-2022 End: 12-02-2022 ambulatory John Lentz Other [facility] Other Start: 12-02-2022 Telephone encounter John Lentz [facility] Start: 11-17-2022 End: 11-17-2022 ambulatory Margy Olivas Facility:[facility] Start: 10-20-2022 End: 10-20-2022 ambulatory Margy Olivas Other [facility] Other Start: 10-20-2022 FQHC visit new patient Margy alicia [facility] Start: 09-23-2022 End: 09-23-2022 ambulatory John Lentz Other [facility] Other Start: 09-23-2022 Telephone encounter John Lentz [facility] Start: 09-22-2022 End: 09-22-2022 ambulatory John Lentz Other [facility] Other Start: 09-22-2022 Office outpatient vi sit 25 minutes John Lentz [facility] Start: 09-22-2022 Telephone encounter John Lentz [facility] Start: 08-13-2022 Rx Renewal John Lentz Work Phone: [facility] DO Work Phone: Start: 07-15-2022 End: 07-15-2022 ambulatory John Lentz Other [facility] Other Start: 07-15-2022 Telephone encounter John Lentz [facility] Start: 06-01-2022 End: 06-01-2022 ambulatory John Lentz Other [facility] Other Start: 06-01-2022 Office outpatient vi sit 25 minutes John Lentz [facility] Start: 05-05-2022 End: 05-05-2022 ambulatory John Lentz Other [facility] Other Start: 05-05-2022 Telephone encounter John Lentz [facility] Start: 04-17-2022 Chart Update John Lentz Work Phone: [facility] DO Work Phone: Start: 04-13-[address] Adelaida Griggs ty:[id number] Start: 02-26-2022 Office outpatient vi sit 25 minutes John Lentz Work Phone: [facility] DO Work Phone: Start: 02-26-[address] Adelaida Griggs ty: Start: 12-12-2021 Pre-procedure evalua tion check John Lentz Other [facility] Other Start: 09-11-2021 Rx Renewal John Lentz Work Phone: [facility] DO Work Phone: Start: 09-08-2021 Rx Renewal John Lentz Work Phone: [facility] DO Work Phone: Start: 09-01-2021 Chart Update John Lentz Work Phone: [facility] DO Work Phone: Start: 08-19-[address] Tracey Pitt Facility:[id number] Start: 08-07-2021 Office outpatient vi sit 25 minutes John Lentz Work Phone: [facility] DO Work Phone: Start: 08-07-[address] John Lentz Facility: Start: 07-21-2021 Rx Renewal John Lentz Work Phone: [facility] DO Work Phone: Start: 01-14-2021 ambulatory [...] for preprocedural laboratory examination DR DORA BELLA [facility] Start: 10-01-2020 End: 10-01-[address] [...] DTaP/Tdap/Td Vaccines (2 - Td or Tdap) [facility] Start: 11-08-2023 End: 11-08-2023 Patient encounter procedure 11/08/2023 1:15 PM EDT [facility] [facility] [address] [facility] [address] [place] [address] Adelaida Hargrove MD [address] [place] [address] [address] [place] [address] [facility] Start: 03-01-2023 FUV, Provider: Adelaida Hargrove, Status: Pen, Time: 2:00 PM FUV, Provider: Adelaida Hargrove, Status: Pen, Time: 2:00 PM [facility] 250 DO Work Phone: Start: 03-01-2023 End: 03-01-2024 Comprehensive metabolic 2000 panel - Serum or Plasma Comprehensive Metabolic Panel Lab Routine Arteriosclerosis of coronary artery Primary hypertension Stented coronary artery Expected: 03/01/2023 (Approximate), Expires: 03/01/2024 [facility] Service Area Work Phone: Comment on above: Expected: 03/01/2023 (Approximate), Expires: 03/01/2024 Start: 03-01-2023 End: 03-01-2024 Lipid 1996 panel - Serum or Plasma Lipid Panel Lab Routine Hyperlipidemia, unspecified hyperlipidemia type Expected: 03/01/2023 (Approximate), Expires: 03/01/2024 [facility] Work Phone: Comment on above: Expected: 03/01/2023 (Approximate), Expires: 03/01/2024 Start: 12-25-2022 Influenza vaccination Influenza Vacc ine (#1) [facility] Start: 04-13-2022 CAROTID, Provider: [facility] ULTRASOUND 01,[id number], Status: Pen, Time: 10:45 AM CAROTID, Provider: [facility] ULTRASOUND 01,[id number], Status: Pen, Time: 10:45 AM [facility] Work Phone: Start: 04-13-2022 ECHO, Provider: [facility] ULTRASOUND 01,[id number], Status: Pen, Time: 10:45 AM ECHO, Provider: [facility] ULTRASOUND 01,[id number], Status: Pen, Time: 10:45 AM -[facility] 250 DO Work Phone: Start: 01-29-2022 FUV, Provider: Adelaida Hargrove, Status: Pen, Time: 1:00 PM FUV, Provider: Adelaida Hargrove, Status: Pen, Time: 1:00 PM -[facility] 250 DO Work Phone: Start: 08-19-2021 STRESS NUC, Provider : [facility] NUCLEAR 01,[id number], Status: Pen, Time: 12:00 PM STRESS NUC, Provider: [facility] NUCLEAR 01,[id number], Status: Pen, Time: 12:00 PM -[facility] 250 DO Work Phone: Start: 08-07-2021 FUV, Provider: Tracey Pitt, Status: Pen, Time: 2:45 PM FUV, Provider: Tracey Pitt, Status: Pen, Time: 2:45 PM -[facility] 250 DO Work Phone: Start: 06-08-2021 COVID-19 Vaccine (4 - Moderna series) COVID-19 Vaccine (4 - Moderna series) [facility] Start: 11-24-2018 Pneumococcal Vaccine : 65+ Years (2 - PPSV23 or PCV20) Pneumococcal Vaccine: 65+ Years (2 - PPSV23 or PCV20) [facility] Start: 1993 Zoster Vaccines (1 o f 2) Zoster Vaccines (1 of 2) [facility] Start: 1961 Diabetes mellitus screening Diabetes Screening [facility] Start: 1961 Hepatitis C screening Hepatitis C Sc reening [facility] Start: 1943 Lipid panel Lipid Panel [facility] Start: 1943 Medicare Annual Wellness Visit Medicare Annual Wellness Visit (AWV) [facility] Start: 1943 Screening for osteoporosis Bone Density Scan [facility] Immunizations Immunization Date Immunization Notes Care Provider Emmanuel kaba 04-13-2021 Pfizer-BioNTech COVID-19 Vacc 30 MCG/0.3ML Intramuscular Suspension John Lentz Work Phone: [facility] 250 DO Work Phone: 07-02-2020 Moderna COVID-19 Vaccine 100 MCG/0.5ML Intramuscular Suspension John Lentz Work Phone: [facility] 250 DO Work Phone: 06-03-2020 Moderna COVID-19 Vaccine 100 MCG/0.5ML Intramuscular Suspension John Lentz Work Phone: [facility] 250 DO Work Phone: 09-29-2018 pneumococcal conjuga te vaccine, 13 valent John Lentz Work Phone: [facility] 250 DO Work Phone: 08-16-2018 tetanus toxoid, redu luis diphtheria toxoid, and acellular pertussis vaccine, adsorbed Adelaida Hargrove MD Work Phone: [facility] Work Phone: 02-16-2017 influenza virus vaccine, split virus (incl. purified surface antigen) John Lentz Other [employer] Other 02-16-2017 influenza, high dose seasonal, preservative-free John Kevin Lentz Work Phone: [facility] DO Work Phone: 02-16-2017 influenza virus vaccine, unspecified formulation Adelaida Hargrove MD Work Phone: [facility] Work Phone: 01-24-2017 influenza virus vaccine, unspecified formulation John Lentz Work Phone: [facility] [employer] DO Work Phone: 01-25-2016 influenza virus vaccine, split virus (incl. purified surface antigen) John Lentz Other [employer] Other 01-25-2016 influenza, high dose seasonal, preservative-free John Lentz Work Phone: [facility] [employer] DO Work Phone: 03-02-2015 influenza, injectabl e, quadrivalent, preservative free John Lentz Work Phone: [facility] DO Work Phone: 03-02-2015 tetanus and diphther ia toxoids, adsorbed, preservative free, for adult use (5 Lf of tetanus toxoid and 2 Lf of diphtheria toxoid) John Lentz Other [employer] Other 02-12-2009 pneumococcal conjuga te vaccine, 7 valent John Lentz Work Phone: [facility] [employer] DO Work Phone: 01-30-2009 influenza virus vaccine, whole virus John Lentz Work Phone: [facility] [employer] DO Work Phone: Payers Date Payer Category Payer Unknown [id number] 2016 Unknown 2016 Unknown [id number] 2008 Medicare MEDICARE MEDICAR E PART A AND B [id number] 2008-Present [address] [place] [address] [id number] 1959 Medicare [id number] 1959 Self-pay 1959 Unknown [id number] 1943 Unknown [id number] 2.16.840.1.051383.3.579.2.593 1943 Unknown [id number] 2.16.840.1.697821.3.579.2.593 1943 Unknown [id number] 2.16.840.1.403943.3.579.2.593 1943 Unknown [id number] 2.16.840.1.650852.3.579.2.593 1943 Unknown [id number] 2.16.840.1.835456.3.579.2.593 1943 Unknown [id number] 2.16.840.1.288645.3.579.2.593 1943 Unknown [id number] 2.16.840.1.145847.3.579.2.593 1943 Unknown [id number] 2.16.840.1.909027.3.579.2.593 1943 Unknown [id number] 2.16.840.1.428616.3.579.2.593 1943 Unknown [id number] 2.16.840.1.012947.3.579.2.593 1943 Unknown [id number] 2.16.840.1.146185.3.579.2.593 1943 Unknown [id number] 2.16.840.1.720481.3.579.2.593 1943 Unknown [id number] 2.16.840.1.947875.3.579.2.593 1943 Unknown [id number] 2.16.840.1.489969.3.579.2.593 1943 Unknown [id number] 2.16.840.1.505149.3.579.2.356 1943 Unknown [id number] 2.16.840.1.277020.3.579.2.356 1943 Unknown [id number] 2.16.840.1.465543.3.579.2.1068 1943 Unknown [id number] 2.16.840.1.455036.3.579.2.1068 1943 Unknown [id number] 2.16.840.1.833748.3.579.2.1244 Unknown [id number] 2.16.840.1.563474.3.579.2.593 Unknown [id number] 2.16.840.1.170568.3.579.2.593 Unknown [id number] 2.16.840.1.347767.3.579.2.531 Social History Date Type Detail Facility Start: 08-07-2021 End: 03-01-2023 Daily caffeine consumption, 2-3 servings a day Daily caffeine consumption, 2-3 servings a day [facility] Comment on above: Quit cigs 2009; 1 cup of coffee harshil y; Start: 08-07-2021 End: 03-01-2023 Sex Assigned At [facility] Start: 03-01-2023 Tobacco smoking stat us SDIS Ex-smoker [facility] End: 04-26-2009 History of tobacco use Current smoker [facility] Work Phone: End: 04-26-2009 History of tobacco use Cigarette Smoker [facility] Work Phone: Start: 03-01-2023 Tobacco use and exposure Smokeless tobacco non-user [facility] Work Phone: Start: 03-01-2023 Alcohol intake Lifetime non-d annemarie (finding) [facility] Work Phone: Start: 1945 [facility] Work [facility]: Start: 02-19-2023 End: 03-01-2023 Exposure to SARS-CoV-2 (event) Not sure [facility] Functional Status Date Assessment Result Facility 08-07-2021 PHQ-9 [id number] Moderate (10-14) [facility] 250 DO Work Phone: Clinical Notes 07-25-2018 to 05-17-2023 Note Date & Type Note Facility 05-17-2023 Evaluation note Encounter Date Diagnosis Assessment Notes Apr, Chronic obstructive pulmonary disease, unspecified COPD type (ICD-10 - J44.9) [employer] Other 01-05-2024 Evaluation note* Encounter Date Diagnosis Assessment Notes Treatment Notes Treatment Clinical Notes Apr, Chronic obstructive pulmonary disease, unspecified COPD type (ICD-10 - J44.9) [employer] Other 01-04-2024 Evaluation note* Encounter Date Diagnosis Assessment Notes Treatment Notes Treatment Clinical Notes Apr, Chronic pain (ICD-10 - G89.29) [facility] [employer] Other 01-04-2024 Evaluation note* Encounter Date Diagnosis [...] to AKA history. Sees pain managment in [place] Apr, Pneumonia, unspecified organism (ICD-10 - J18.9) Pulmonolary consult. Improving. 04 Curtis, 2024 Nosocomial condition (ICD-10 - Y95) Apr, Atrial fibrillation with RVR (ICD-10 - I48.91) presently in regular rhythm [employer] Other 12-21-2023 Evaluation note* Encounter Date Diagnosis Assessment Notes Treatment Notes Treatment Clinical Notes Mar, Acute UTI (ICD-10 - N39.0) UA will be taken to hospital Pt cannot provide UA presently. We suspect UTI due to her recent confustion. Order printed and given to daughter. She will take it to [facility] when she goes to work tomorrow. Mar, Cellulitis of right leg (ICD-10 - L03.115) Patient is advised to stay well hydrated. Finish the full antibiotic until gone. Patient is advised to add a probiotic to their diet such as yogurt. Follow up to let us know if symptoms have improved Mar, Chronic constipation (ICD-10 - K59.09) samples of miralax given [employer] Other 12-20-2023 Evaluation note* Encounter Date Diagnosis Assessment Notes Treatment Notes Treatment Clinical Notes Mar, Confusion (ICD-10 - R41.0) [employer] Other 12-18-2023 [facility] Note-stable, concerns for hypotension given first BP in office had SBP [facility] Note-recovered EF per recent echo [...] time -continue aldactone 25mg, start toprol xl 25mgUnFostoria City Hospital12-18-2023 Note-s/[facility]2023 Note-noted in hx, sees a vascular surgeonUnFost[facility] 12-18-2023 Note-s/p stent to RCA and ostial left main in 2019 -will increase to high intensity statin 40mg lipitor given she is done drinking -stop ASA and start eliquis 2.5mg BID for AF, ct plavix -noted to not be a good candidate for CABG given resp diseaseUnFostoria City Hospital12-18-2023 Note- stable, she is on supplemental O2 as needed - she may not be a great candidate for amiodaroneUniversWood [facility]12-18-2023 NoteNew patient here to establish care. She was recently discharged from [facility] for new onset afib. AC was not started. She has a right carotid stent that was placed years ago at [facility]. She does not still follow with vascular surgeon. She is transferring cardiology care from [facility] to [place]. Review of Systems Cardiovascular: Positive for dyspnea on exertion and leg swelling (RLE). Respiratory: Positive for cough and shortness of breath. All other systems reviewed and are negative.[facility] 04-12-2023 NoteUT Electrophysiology Consult Note Reason [...] follow-up with cardiology and is switching to [facility] She was admitted to [facility] with new onset A-fib, alcohol withdrawal which was treated with benzodiazepines, sepsis, respiratory failure, COPD exacerbation all likely due to COVID infection, she was discharged 04/01/2023. 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 She states she has stopped drinking since [...] fibrillation (CMS/HCC) COPD (chronic obstructive pulmonary disease) (CMS/[facility]) Hyperlipidemia PSH: No past surgical history on [...] feeling safe in r (more content not included)...[facility]11-28-2023 Evaluation note* Encounter Date Diagnosis Assessment [...] such as patterns or other associated symptoms [employer] Other 11-27-2023 Evaluation note* Encounter Date Diagnosis Assessment Notes Treatment Notes Treatment Clinical Notes Feb, Chronic pain (ICD-10 - G89.29) [employer] Other 11-06-2023 History of Present illness Narrative* [...] List Diagnosis Date Noted Amputation of leg ([facility]) 03/01/2023 History of right-sided carotid endarterectomy 03/01/2023 Arteriosclerosis of coronary artery 02/26/2023 Bilateral carotid bruits 02/26/2023 Chronic obstructive pulmonary disease ([facility]) 02/26/2023 Hyperlipidemia 02/26/2023 Ischemic cardiomyopathy 02/26/2023 Primary [...] vertebral flow Problems addressed today included atherosclerotic [place] vessel coronary artery disease, hyperlipidemia, cerebrovascular disease, [...] MONTHS Adelaida Hargrove MD [facility] Work Phone: 1(586) 106-488911-06-2023 Instructions* Patient Instructions* Tran Morales LPN - [...] time of your visit. [facility] Work Phone: 1(255) 629-939806-27-2023 Evaluation note* Encounter Date Diagnosis Assessment Notes [...] discussion, agrees with plan, denies any questions. [employer] Other 05-30-2023 Evaluation note* Encounter Date Diagnosis Assessment Notes Treatment Notes Treatment Clinical Notes August, Acute bacterial conjunctivitis of both eyes (ICD-10 - H10.33) [facility] is contagious. Wash hands frequently and try not to rub eyes. Use warm wash cloth to keep them clean or to remove discharge from eyes. Use drops until eyes are clear then 3 more days August, PAD (peripheral artery disease) (ICD-10 - I73.9) Pt agrees to referral to [facility] 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 She is established w pain management for this problem August, Acute non-recurrent maxillary sinusitis (ICD-10 - J01.00) agrees to antibiotic for sore throat. August, History of left abov e knee amputation (ICD-10 - Z89.612) August, Chronic pain (ICD-10 - G89.29) Reviewed OARRS report. Refilled rx. [employer] Other 05-30-2023 Evaluation note* Encounter Date Diagnosis Assessment Notes Treatment Notes Treatment Clinical Notes August, Chronic pain (ICD-10 - G89.29) [employer] Other 02-06-2023 Evaluation note* Encounter Date Diagnosis [...] Continue to cover and monitor area. Vaccuum room cleaner fell on her leg and it is tender. May, Lumbar degenerative disc disease (ICD-10 - M51.36) chronic pain due to lumbar issues and BKA amputation. will call when pain med refill is needed. [employer] Other 04-14-2022 History of Present illness Narrative* [...] Ejection fraction is typically been estimated at aipmkm42%. She indicates that her breathing has progressively worsened again. She does not believe there is been really any change to her pulmonary status. -[facility] 250 DO Work Phone: 1(455) 439-171704-14-2022 History of Present illness Narrative* Previously seen [...] Ejection fraction is typically been estimated at yrnggt25%. She indicates that her breathing has progressively [...] profile lipid profile prior to next visit. [facility] 250 DO Work Phone: 1(416) 747-827804-14-2022 History of Present illness Narrative* Previously seen [...] Ejection fraction is typically been estimated at tuluhh90%. She indicates that her breathing has progressively [...] profile lipid profile prior to next visit. [facility] Work Phone: 1(345) 911-556001-28-2022 NoteHNO ID: [id number] Author: Chavez Dillard MD Service: ? Author [...] interventional pain procedures: Seen pain management in [facility] Did an injection with no relief Dr [...] reproduction bilaterally. Extremities: Peripheral (more content not included)...[facility] 12-09-2020 NotePROCEDURE: MRI THIGH LT [...] Electronically authenticated by: JOSIE PARIS Date: 2020-12-09 16:49[facility]08-05-2021 NoteHISTORY AND PHYSICAL EXAMINATION HISTORY: This [...] be doing so in the near future. [facility] Signed and Approved by: ROXI MCCLENDON 11/28/2020 09:43:00[facility]08-05-2021 NoteOPERATIVE NOTE OPERATION DATE: 11-28-20 ANESTHETIC: [...] was injected into the anterior chamber and [facility] cell sponge was used to check the wounds to be water tight. One drop of apraclonidine and 1 drop of prednisolone acetate were placed into the eye and shield was placed over top. The patient was sent to the postoperative area in satisfactory condition to followup the following day for postoperative care. [facility] Signed and Approved by: ROXI MCCLENDON 12/26/2020 11:09:00[facility]07-06-2021 NotePAIN MANAGEMENT Consultation Date: 10-29-20 CHIEF [...] periosteum of the femur. cc:Dr. John Lentz. [facility] Signed and Approved by: DR DORA BELLA 11/05/2020 12:13:00[facility]07-01-2021 NoteHISTORY AND PHYSICAL EXAMINATION HISTORY: The [...] and go forward with her elective procedure. [facility] Signed and Approved by: ROXI MCCLENDON 10/24/2020 11:46:00[facility]07-01-2021 NoteOPERATIVE NOTE OPERATION DATE: 10-24-20 ANESTHETIC: [...] was injected into the anterior chamber and [facility] cell sponge was used to check the wounds to be water tight. One drop of apraclonidine and 1 drop of prednisolone acetate were placed into the eye and shield was placed over top. The patient was sent to the postoperative area in satisfactory condition to followup the following day for postoperative care. [facility] Signed and Approved by: ROXI MCCLENDON 11/27/2020 16:58:00[facility]06-22-2021 NotePAIN MANAGEMENT Consultation Date: 10-15-20 CHIEF COMPLAINT: Left murvm-lbt-btpm amputation stump pain. HISTORY OF PRESENT ILLNESS: [...] 2. Lumbar spondylosis. 3. Status post left zzuds-pmq-dmrb amputation 2018. 4. Stump pain. 5. Neuromatous [...] daughter understand and would like to proceed. [facility] Signed and Approved by: DR DORA BELLA 10/29/2020 10:44:00[facility]06-22-2021 NotePAIN MANAGEMENT PROCEDURE NOTE Date: 10-15-20 PRE AND POST PROCEDURE DIAGNOSIS: Neuromatous stump pain, neuromatous pain status post left tuebf-tlr-llbb amputation. PROCEDURE NAME:Neuroma stump injection. PROCEDURE: Subsequent [...] pain symptomatology that would have been present. [facility] Signed and Approved by: DR DORA BELLA 10/29/2020 10:44:00[facility]04-26-2021 NotePAIN MANAGEMENT Consultation Date: 08-19-20 HISTORY [...] baclofen. 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 On July 30 the [...] her pain. Dictated by Hemant Red APRN [facility] Signed and Approved by: HEMANT RED 08/26/2020 16:35:00[facility]03-08-2021 NoteCONSULTATION Consultation Date: 07/01/2020 PAIN MANAGEMENT CONSULTATION HISTORY OF PRESENT ILLNESS: This is a very pleasant 75-year-old female patient who comes to the [facility] for the very first time. [...] patient had stents July of 2018 at [facility]. Originally the patient was placed on Plavix [address] Arnold; however, Dr. Pitt in [place] took over the Plavix medication. The patient [...] the lumbar x-ray is without any deformities. [facility] Signed and Approved by: HMEANT RED 07/08/2020 17:02:00[facility]03-08-2021 NoteCONSULTATION Procedure Date: 07/01/2020 PROCEDURE NOTE: [...] signs were obtained and were stable. . [facility] Signed and Approved by: HEMANT RED 07/08/2020 17:03:00[facility]04-01-2019 History of Present illness Narrative* Mrs. [...] Ejection fraction is typically been estimated at vaqwma47%. She indicates that her breathing has progressively [...] is completed. No change made to medications. -[facility] 250 DO Work Phone: Evaluation noteNo [facility] [facility] [employer] Other Evaluation note* Diagnosis Arteriosclerosis of coronary [...] right-sided carotid endarterectomy documented in this encounter [facility] Work Phone: History general Narrative - [...] Hospitalization History Suicide Hospitalization History See above [employer] Other [employer] general Narrative - Reported* Type Description Date [...] Hospitalization History Suicide Hospitalization History See above [employer] Other Reason for referral (narrative)* Consultation (Routine) - Authorized Specialty Diagnoses / Procedures Referred By Contruben t Referred To Contact Cardiology Diagnoses Arteriosclerosis of coronary artery Procedures Follow Up In Cardiology Adelaida Hargrove MD [address] [place] [address] Adelaida Hargrove MD [address] [place] [address] Referral ID Status Reason Start Date Expiration Date V isits Requested Visits Authorized [id number] Authorized 03/01/2023 02/29/2024 1 1 [facility] Work Phone: Summary Purpose Family History [...] disease, unspecified COPD type (J44.9) Referral Organization [facility] Referring Provider First Name John Referring Provider Last Name Abhijeet Referring Provider Specialty [facility] Orders Referred Organization [facility] Referred Provider RubioTahir Referred Address [address], [place],[address] Referred Provider Specialty Pulmonary Fidelina seases Referral Priority Routine General Notes Dai Aaron 07:48:28 AM >received today, attachments made, notes locked, referral faxed Clinical Notes p: [phone] f: [id number] Reason *Waiting for appt Former pt of Dr. Mejia - now has swelling and discoloration in R lower leg. Hx of L AKA Diagnosis 1 PAD (peripheral yuli ry disease) (I73.9) Referral Organization [facility] Referring Provider First Name John Referring Provider Last Name Abhijeet Referring Provider Specialty [facility] Referred Organization [facility] [place] Referred Provider Jaspreet Ventura Referred Address [address],[id number] Referred Provider Specialty Vascular April christianne Referral Priority Routine General Notes Dai Aaron 01:06:20 PM >received today, faxed P2P Additional Source Comments INFORMATION SOURCE (unrecogn ized section and content) DATE CREATED AUTHOR 01/02/2021 [facility] DATE CREATED AUTHOR AUTHOR'S ORGANIZ ATION 07/18/2021 [facility] DATE CREATED AUTHOR AUTHOR'S ORGANIZ ATION 02/27/2022 [facility] DATE CREATED AUTHOR AUTHOR'S ORGANIZ ATION 02/27/2022 [facility] DATE CREATED AUTHOR AUTHOR'S ORGANIZ ATION 04/17/2022 [facility] DATE CREATED AUTHOR AUTHOR'S ORGANIZ ATION 12/18/2022 [facility] DATE CREATED AUTHOR AUTHOR'S ORGANIZ ATION 03/02/2023 [facility] DATE CREATED AUTHOR AUTHOR'S ORGANIZ ATION 04/13/2023 [facility] REASON FOR VISIT (unrecogniz ed section and content) Reason Comments Follow-up 1 year Care Teams (unrecognized sec tion and content) Fur Joiner Relationship Specialty Start Date End Date John Lentz MD [address] [place], [place] [id number] PCP - General 11/03/18 FOR RECORDS PERTAINING [...] BE BASED ON THE PRIMARY CLINICAL RECORDS. [employer] [facility]. provides no warranty or guarantee of the accuracy or completeness of information in this document.
--- OUTSIDE RECORDS SUMMARY | 2023-06-02 08:47 | XMS_ITS | CCD ---
Author Name Unknown Address [address] [place] [address] Organization [facility] Care Team Providers Care Prop And Effects Designer Name Role Phone SELVIN, DR DORA Buenrostro Admitting Unavailable CLINKER, HEMANT Consulting Unavailable LENTZ, DR JOHN Brown Primary Care Unavailable SELVIN, DR DORA Buenrostro Attending Unavailable SELVIN, DR DORA Buenrostro Admitting Unavailable LENTZ, DR JOHN Brown Primary Care Unavailable BELLA, DR DORA Beunrostro Consulting Unavailable SELVIN, DR DORA Buenrostro Attending [...] LENTZ, DR JOHN Brown Primary Care Unavailable MAN[place]LE, DR LORENA Tirado Consulting Unavailable CLINKER, HEMANT Consulting Unavailable LENTZ, DR JOHN Brown Primary Care Unavailable REQUEST, NONE LISTED Consulting Unavaila ble REQUEST, NONE LISTED Attending Unavaila ble REQUEST, NONE LISTED Admitting Unavaila ble LENTZ, DR JOHN rBown Primary Care Unavailable REQUEST, NONE LISTED Consulting [...] [BACITRACIN] Drug Allergy 07-19-19 21 Unknown [facility] Repository (2 sources) Neomycin; Translations: [NEOMYCIN] Drug Allergy 07-19-19 21 [facility] Repository (3 sources) Vancomycin; Translations: [VANCOMYCIN] Drug Allergy 01-17-20 15 [facility] Repository (1 source) Polymyxin B Drug allergy (disorder) 07-19-19 21 [facility] Repository (20 sources) Vancomycin; Translations: [vancomycin] Drug Allergy 07-21-19 14 [facility] (20 sources) Aminoglycosides (Antibiotic) Propensity to adverse reactions Unknown [facility] Other (9 sources) Bacitracin Drug Allergy Unknown [facility] Other (20 sources) Neomycin Drug Allergy Unknown [facility] Other (20 sources) Polymyxin B Drug Allergy Unknown [facility] Other (15 sources) Contrast media Propensity to adverse reactions 07-21-19 14 Unknown [facility] Other (15 sources) Erythromycin Drug Allergy Unknown [facility] Other (15 sources) fluticasone / salmeterol Drug Allergy 09-11-19 16 Unknown [facility] Other (14 sources) influenza A virus (H1N1) antigen / influenza A virus (H3N2) antigen / influenza B virus antigen Drug Allergy Comment:Flu Injection [facility] Other (15 sources) traMADol Drug Allergy 10-17-19 15 Unknown [facility] Other (15 sources) Advair Diskus *ANTIASTHMATIC AND BRONCHODILATOR AG Propensity to adverse reactions Unknown [facility] Other (7 sources) patient allergy list reviewed by nurse or physicia Propensity to adverse reactions 09-22-19 18 Comment:Done [facility] Other (15 sources) Dyes Propensity to adverse reactions Comment:CT DYE [facility] Other (7 sources) Allergies Reconciled Propensity to adverse reactions Unknown [facility] Other (15 sources) TraMADol & Dietary Manage Prod *ANALGESICS - OPIOI Propensity to adverse reactions Unknown [facility] Other (15 sources) Vaccine product containing Influenza virus antigen (medicinal product) Drug allergy 03-03-20 17 Unknown [facility] Other (15 sources) Contraindication to Flu Injection Propensity to adverse reactions 08-18-19 18 Comment:advers e rxn/side effects [facility] Other (1 source) Aminoglycosides (Antibiotic) Drug allergy (disorder) 10-25-19 [facility] Repository (1 source) Vancomycin Drug Allergy 10-25-19 [facility] Repository (1 source) Flucelvax Quadrivalent Drug allergy Comment:Flu Injection [facility] Other (1 source) POLYMYXIN B SULFATE-HC; Translations: [POLYMYXIN B SULFATE-HC] Propensity to adverse reactions to drug (disorder) 08-29-19 [facility] Repository Medications Current Medications Medication Drug Class(es) Dates Sig (Normalized) Sig (Original) [id number] actuat albuterol 0.09 mg/actuat metered dose [...] Active Start: 05-26-2021 take 1 capsule by [facility] twice daily DULoxetine HCl - 30 MG Oral Capsule Delayed Release Particles TAKE 1 CAPSULE TWICE DAILY. Quantity: 0 Refills: 0 Ordered: 26-May-2021 DO Start : 26-May-2021 Active take 1 capsule by [facility] every twenty-four hours Cymbalta 60 [...] Start: 06-01-2022 take 2 tablets by mo [facility] every twenty-four hours predniSONE 20 MG [...] (20 sources) Atherosclerotic heart disease of [place] coronary artery without angina pectoris; Translations: [Coronary arteriosclerosis] Onset: 08-25-2018 03-01-2023 Chronic Coronary atherosclerosis and other heart disease (10 sources) Stented coronary artery; Translations: [Percutaneous transluminal coronary angioplasty status] Onset: 02-26-2023 03-01-2023 Episodic Coronary atherosclerosis and other heart disease (1 source) Coronary atherosclerosis and other heart disease; Translations: [Atherosclerosis of [place] arteries of extremities with intermittent claudication, right [...] 07-20-2013 Chronic Other aftercare (1 source) 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; Translations: [OTH LONG-TERM CURRENT DRUG THERAPY] Onset: 11-06-2020 Episodic Other aftercare (7 sources) Long-term current use of inhaled steroid; Translations: [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 of inhaled steroids] Episodic Other aftercare (7 sources) Long-term current use of anticoagulant; Translations: [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 of anticoagulants] Episodic Other bone [...] Onset: 12-17-2016 Episodic Other aftercare (1 source) 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 of anticoagulants; Translations: [LONG-TERM CURRNT USE ANTICOAGULANTS] Onset: 07-05-2020 Episodic Other [...] Range Facility Office Visiton 04-12-2023 Follow-up visit [id number] Sanchez Merritt 1945 F Date Provider Department Center 04/12/2023 Jassi6-OMKAR [facility] No family history on file Level of Service:18976 AL OFFICE/OUTPATIENT ESTABLISHED MOD MDM 30 MIN Normal [facility] US UNI ankle/arm indiceson 0 12-17-2022 US UNI ankle/arm indices [facility] [place] [address] Ultrasound Report Signed Patient: Sanchez Merritt MR#: [id number] : 1945 Acct:[id number] Age/Sex: 77 / F ADM Date: 11/17/22 Loc: [facility] Room: Type: [facility] Attending Dr: Margy Olivas LDR NURSE-C Ordering Provider: Margy Olivas APRN Date of [...] Lauro Heard MD12/17/2022 2:11 PM Dictation Location: [id number] Tech: Julia Ortegaley Transcribed By: BILLIE 12/17/221410 Dictated By: Lauro Heard MD 12/17/221409 Signed By: 12/17/221410 [facility] LAB Carotid Artery Dupl ex Ultrasounon 04-13-2022 [facility] Carotid Artery Duplex Ultrasoun [address], [address] [place] [address] Vascular Lab Report Carotid Artery Duplex Ultrasound Patient Name: SANCHEZ Regis Melara Physician: [id number] Ludwig South [facility] Study Date: 04/13/2022 Referring ADELAIDA HARGROVE Physician: MRN/PID: [id number] PCP: John Lentz Accession/Order#: [id number] CC Report to: Cooper Arnold Date of : 1945 Technologist: Jillian Gonzalez RD, [facility] Gender: F Technologist 2: Admission Status: Outpatient Location Performed: [facility] Diagnosis/ICD: R09.89-Other specified symptoms and signs involving the circulatory and respiratory systems Indication: CAD, Right CEA, Peripheral Vascular Disease, 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 [employer] DO Work Phone: Height or Weight NOT Doneon 02-26-2022 Fall risk assessment a) No falls within the last year [facility] [employer] 250 DO Work Phone: Tobacco use status CPHS b) No [facility] [employer] 250 DO Work Phone: Office Visit (Cardiology)on [...] stenting (more content not included)... Normal [employer] [facility] CARDIAC STRESS/REST INJE CTIONon 08-19-2021 [facility] CARDIAC STRESS/REST INJECTION Patient Name: SANCHEZ MERRITT STUDY: MYOCARDIAL PERFUSION STRESS TEST WITH LEXISCAN Performing facility: [facility], [address], [address], [place] [address] [facility] Provider: Tracey Pitt DO, [facility] PCP: Dr. Young Lentz Supervising provider: Ludwig South MD, [facility] INDICATION: CAD; ICM SOB; HISTORY: Gender: F; Age: 76 y/o ; Height: 160.02 cm; Weight: 58.549269 kg. High Cholesterol; CAD; SOB; COPD; Quit smoking 12 years ago. Cardiac catheterization on 2018. PTCA on 2018. COMPARISON: No comparison. ACCESSION NUMBER(S): [id number]; [id number]; [id number] ORDERING CLINICIAN: TRACEY PITT TECHNIQUE: ONE DAY [...] Electronically signed by: GHULAM RIVERA MD Normal [facility] No Panel Informationon 08-19 Normal [facility] DO Work Phone: Office Visit [...] Status:Hold For - Scheduling,Retrospecti ve Authorization; Requested for:[id number]; Radiologist to Determine Optimal Study : Y What are the patient's signs and symptoms? 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 Respiratory: (more content not included)... Normal [employer] Tobacco Screening.on 022 Adult depression screening assessment Yes -[facility] DO Work Phone: Fall risk assessment a) No falls within the last year [facility] DO Work Phone: Tobacco use status [facility] b) No -[facility] DO Work Phone: Tobacco Screening. 2-More than half the days [facility] DO Work Phone: Tobacco Screening. 1-Several days [facility] hospital [facility] DO Work Phone: Tobacco Screening. 0-Not at all [facility] DO Work Phone: Tobacco Screening. 3-Nearly every day [facility] DO Work Phone: Tobacco Screening. Somewhat Difficult -[facility] DO Work Phone: Wily 05-23-2021 [facility] SANCHE[facility]ERR[facility] ([id number]) 1945 F Date Time Provider Department 05/23/21 10:30 AM CHAVEZ DILLARD During your visit today, we recorded the following information about you: Pulse Respiration 89/minute 16/minute Chavze Dillard MD 06/10/2021 6:12 PM Signed Referring [...] interventional pain procedures: Seen pain management in [facility] Did an injection with no relief [...] radicular pain. (more content not included)... Normal [facility] CNPNon 05-23-2021 [facility] Telephone (AJ) SANCHEZ MERRITT ([id number]) 1945 F Date Time Provider Department 05/23/21 [...] be called to [facility] in [place]. States it was discussed at last OV. Please advise. Cleopatra King LPN 05/28/2021 11:50 AM Signed Called the patient and advised that normally Lien Hughes LPN 05/28/2021 12:02 PM Signed Tens unit was sent to [facility]. Cleopatra King LPN 05/28/2021 1:25 PM Signed Patient was notified that order was sent to [facility] and they would contact her. Allergies [...] Status:Closed by CLEOPATRA KING on 05/28/21 Normal [facility] Covid-19 PCR (CVDTBH)on SARS-CoV-2 (COVID-19) RNA MEENAKSHI+probe Ql (Unsp spec) Not detected Normal NOT DETECTED [facility] Comment on above: Result Comment: This test is not yet approved or cleared by the [place] FDA. When there are no FDA-approved or cleared tests available, and other criteria are met, FDA can make tests available under an emergency access mechanism called an Emergency Use Authorization (EUA). The EUA for this test is supported by the Hazmat Cdl A Driver of Health and Human Service's (HHS's) declaration [...] consistent with SARS-CoV-2. Performed By: #### C [facility] ####[facility] [id number] Aggie XR LSPINE W_OBLS AND FLEX_EX [...] LORENA LATIF Date: 2020-07-02 15:09 Normal [facility] CT CHEST HI RESOLUTIONon CT CHEST [...] by: JOSIE PARIS Date: 2020-06-18 14:59 Normal [facility] XR CHEST 2 Von 02-29-2020 XR [...] by: JOSIE PARIS Date: 2020-02-29 09:04 Normal [facility] Vital Signs Date Time Vital Sign Value Performing Clinician Facility 04-29-2023 13:00-0500 Body height 156.21 cm John Lentz Other [facility] Other 04-29-2023 13:00-0500 Body mass index (BMI) [Ratio] 24.16 kg/m2 John Lentz Other [facility] Other 04-29-2023 13:00-0500 Body weight 58.97 kg John Lentz Other [facility] Other 04-29-2023 13:00-0500 Diastolic blood pressure 76 mm[Hg] John Lentz Other [facility] Other 04-29-2023 13:00-0500 SaO2% (BldA) [Mass fraction] 86 % John Lentz Other [facility] Other 04-29-2023 13:00-0500 Systolic blood pressure 109 mm[Hg] John Lentz Other [facility] Other 04-15-2023 15:45-0500 Body height 156.21 cm John Lentz Other [facility] Other 04-15-2023 15:45-0500 Body mass index (BMI) [Ratio] 24.16 kg/m2 John Lentz Other [facility] Other 04-15-2023 15:45-0500 Body weight 58.97 kg John Lentz Other [facility] Other 04-15-2023 15:45-0500 Diastolic blood pressure 72 mm[Hg] John Lentz Other [facility] Other 04-15-2023 15:45-0500 SaO2% (BldA) [Mass fraction] 95 % John Lentz Other [facility] Other 04-15-2023 15:45-0500 Systolic blood pressure 103 mm[Hg] John Lentz Other [facility] Other 03-01-2023 14:00-0500 Diastolic blood pressure 68 mm[Hg] Adelaida Hargrove MD Work Phone: [facility] 03-01-2023 14:00-0500 Heart rate 68 /min Adelaida Hargrove MD Work Phone: [facility] 03-01-2023 14:00-0500 Systolic blood pressure 110 mm[Hg] Adelaida Hargrove MD Work Phone: [facility] 10-20-2022 13:15-0400 Body height 156.21 cm Margy Olivas Other [facility] Other 10-20-2022 13:15-0400 Body mass index (BMI) [Ratio] 24.16 kg/m2 Margy Olivas Other [facility] Other 10-20-2022 13:15-0400 Body temperature 96.9 [degF] Margy Olivas Other [facility] Other 10-20-2022 13:15-0400 Body weight 58.97 kg Margy Olivas Other [facility] Other 10-20-2022 13:15-0400 Diastolic blood pressure 60 mm[Hg] Margy Olivas Other [facility] Other 10-20-2022 13:15-0400 SaO2% (BldA) [Mass fraction] 93 % Margy Olivas Other [facility] Other 10-20-2022 13:15-0400 Systolic blood pressure 110 mm[Hg] Margy Olivas Other [facility] Other 09-22-2022 10:00-0400 Body height 156.21 cm John Lentz Other [facility] Other 09-22-2022 10:00-0400 Body mass index (BMI) [Ratio] 24.16 kg/m2 John Lentz Other [facility] Other 09-22-2022 10:00-0400 Body weight 58.97 kg John Lentz Other [facility] Other 09-22-2022 10:00-0400 Diastolic blood pressure 68 mm[Hg] John Lentz Other [facility] Other 09-22-2022 10:00-0400 Systolic blood pressure 117 mm[Hg] John Lentz Other [facility] Other 06-01-2022 11:15-0500 Body height 156.21 cm John Lentz Other [facility] Other 06-01-2022 11:15-0500 Body mass index (BMI) [Ratio] 24.16 kg/m2 John Lentz Other [facility] Other 06-01-2022 11:15-0500 Body weight 58.97 kg John Lentz Other [facility] Other 06-01-2022 11:15-0500 Diastolic blood pressure 60 mm[Hg] John Lentz Other [facility] Other 06-01-2022 11:15-0500 SaO2% (BldA) [Mass fraction] 92 % John Lentz Other [facility] Other 06-01-2022 11:15-0500 Systolic blood pressure 102 mm[Hg] John Lentz Other [facility] Other 02-26-2022 15:00-0400 Body height 160.02 cm John Lentz Work Phone: [facility] DO Work Phone: 02-26-2022 15:00-0400 Body mass index (BMI) [Ratio] Medical Reason Not Done John Lentz Work Phone: [facility] DO Work Phone: 02-26-2022 15:00-0400 Diastolic blood pressure 60 mm[Hg] John Lentz Work Phone: [facility] DO Work Phone: 02-26-2022 15:00-0400 Heart rate 80 /min John Lentz Work Phone: [facility] DO Work Phone: 02-26-2022 15:00-0400 Systolic blood pressure 122 mm[Hg] John Lentz Work Phone: [facility] DO Work Phone: 08-19-2021 12:00-0400 72 1 John Lentz Work Phone: [facility] DO Work Phone: Comment on above: [id number] 08-07-2021 14:55-0400 Body height 160.02 cm John Lentz Work Phone: [facility] DO Work Phone: 08-07-2021 14:55-0400 Diastolic blood pressure 68 mm[Hg] John Lentz Work Phone: [facility] DO Work Phone: 08-07-2021 14:55-0400 Heart rate 89 /min John Lentz Work Phone: [facility] DO Work Phone: 08-07-2021 14:55-0400 Systolic blood pressure 114 mm[Hg] John Lentz Work Phone: [facility] DO Work Phone: 08-07-2021 14:55-0400 10 1 John Lentz Work Phone: [facility] DO Work Phone: Comment on above: PHQ-9 TS Encounters Encounter Date Encounter Type Care Provider Facility Start: 05-17-2023 End: 05-17-2023 ambulatory John Abihjeet Other [facility] Other Start: 05-17-2023 Telephone encounter John Abhijeet [facility] Start: 04-30-2023 End: 04-30-2023 ambulatory John Abhijeet Other [facility] Other Start: 04-30-2023 Telephone encounter John Abhijeet [facility] Start: 04-29-2023 End: 04-29-2023 ambulatory John Abhijeet Other [facility] Other Start: 04-29-2023 Office outpatient vi sit 25 minutes John Abhijeet [facility] Start: 04-29-2023 Telephone encounter John Lentz [facility] Start: 04-27-2023 End: 04-27-2023 ambulatory John Abhijeet Other [facility] Other Start: 04-27-2023 Telephone encounter John Lentz [facility] Start: 04-15-2023 End: 04-15-2023 ambulatory John Abhijeet Other [facility] Other Start: 04-15-2023 Office outpatient vi sit 25 minutes John Abhijeet [facility] Start: 04-14-2023 End: 04-14-2023 ambulatory John Abhijeet Other [facility] Other Start: 04-14-2023 Telephone encounter John Lentz [facility] Start: 04-12-2023 End: 04-12-2023 ambulatory OMKAR [facility] Start: 04-02-2023 End: 04-02-2023 ambulatory John Lentz Other [facility] Other Start: 04-02-2023 Telephone encounter Johnabimael Lentz [facility] Start: 03-23-2023 (Televisit) Televisit John Abhijeet [facility] Start: 03-23-2023 End: 03-23-2023 ambulatory John Lentz Other [facility] Other Start: 03-22-2023 End: 03-22-2023 ambulatory John Lentz Other [facility] Other Start: 03-22-2023 Telephone encounter John Abhijeet [facility] Start: 03-01-2023 End: 03-01-2023 ambulatory [facility] Start: 03-01-2023 End: 03-01-2023 Office outpatient visit 25 minutes Adelaida Hargrove MD Work Phone: [facility] Comment on above: Arteriosclerosis of coronary artery (Primary Dx); Bilateral carotid bruits; Hyperlipidemia, unspecified hyperlipidemia type; Ischemic cardiomyopathy; Primary hypertension; Stented coronary artery; Chronic obstructive pulmonary disease, unspecified COPD type (CMS/HCC); Wheelchair dependent; Amputation of leg (CMS/HCC); History of right-sided carotid endarterectomy Start: 01-27-2023 End: 01-27-2023 ambulatory John Lentz Other [facility] Other Start: 01-27-2023 Telephone encounter John Abhijeet [facility] Start: 01-25-2023 End: 01-25-2023 ambulatory John Lentz Other [facility] Other Start: 01-25-2023 Telephone encounter John Abhijeet [facility] Start: 01-08-2023 End: 01-08-2023 ambulatory John Lentz Other [facility] Other Start: 01-08-2023 Telephone encounter John Abhijeet [facility] Start: 12-02-2022 End: 12-02-2022 ambulatory John Lentz Other [facility] Other Start: 12-02-2022 Telephone encounter John Lentz [facility] Start: 11-17-2022 End: 11-17-2022 ambulatory Margy Olivas Facility:[facility] Start: 10-20-2022 End: 10-20-2022 ambulatory Margy Olivas Other [facility] Other Start: 10-20-2022 [facility] visit new patient Margy alicia [facility] Start: 09-23-2022 End: 09-23-2022 ambulatory John Lentz Other [facility] Other Start: 09-23-2022 Telephone encounter John Lentz [facility] Start: 09-22-2022 End: 09-22-2022 ambulatory John Lentz Other [facility] Other Start: 09-22-2022 Office outpatient vi sit 25 minutes John Lentz [facility] Start: 09-22-2022 Telephone encounter John Lentz [facility] Start: 08-13-2022 Rx Renewal John Lentz Work Phone: [facility] DO Work Phone: Start: 07-15-2022 End: 07-15-2022 ambulatory John Lentz Other [facility] Other Start: 07-15-2022 Telephone encounter John Lentz [facility] Start: 06-01-2022 End: 06-01-2022 ambulatory John Lentz Other [facility] Other Start: 06-01-2022 Office outpatient vi sit 25 minutes John Lentz [facility] Start: 05-05-2022 End: 05-05-2022 ambulatory John Lentz Other [facility] Other Start: 05-05-2022 Telephone encounter John Lentz [facility] Start: 04-17-2022 Chart Update John Lentz Work Phone: [facility] DO Work Phone: Start: 04-13-[address] Adelaida Griggs ty:[id number] Start: 02-26-2022 Office outpatient vi sit 25 minutes John Lentz Work Phone: [facility] DO Work Phone: Start: 02-26-[address] Adelaida Griggs ty: Start: 12-12-2021 Pre-procedure evalua tion check John Lentz Other [facility] Other Start: 09-11-2021 Rx Renewal John Lentz Work Phone: [facility] DO Work Phone: Start: 09-08-2021 Rx Renewal John Lentz Work Phone: [facility] DO Work Phone: Start: 09-01-2021 Chart Update John Lentz Work Phone: [facility] DO Work Phone: Start: 08-19-[address] Tracey Pitt Facility:[id number] Start: 08-07-2021 Office outpatient vi sit 25 minutes John Lentz Work Phone: [facility] DO Work Phone: Start: 08-07-[address] John Lentz Facility: Start: 07-21-2021 Rx Renewal John Lentz Work Phone: [facility] DO Work Phone: Start: 01-14-2021 ambulatory [...] for preprocedural laboratory examination DR DORA BELLA [facility] Start: 10-01-2020 End: 10-01-[address] [...] Phone: Start: 05-19-2016 General examination of patient Ojhn Abhijeet Other Amputation of lower limb Chelsy [...] Vaccines (2 - Td or Tdap) [facility] Start: 11-08-2023 End: 11-08-2023 Patient encounter procedure 11/08/2023 1:15 PM EDT Office Visit [facility] [address] [place] [address] Adelaida Hargrove MD [address] [place] [address] [address] [place] [address] [facility] Start: 03-01-2023 FUV, Provider: Adelaida Hargrove, Status: Pen, Time: 2:00 PM FUV, Provider: Adelaida Hargrove, Status: Pen, Time: 2:[address] [facility] DO Work Phone: Start: 03-01-2023 End: 03-01-2024 Comprehensive metabolic 2000 panel - Serum or Plasma Comprehensive Metabolic Panel Lab Routine Arteriosclerosis of coronary artery Primary hypertension Stented coronary artery Expected: 03/01/2023 (Approximate), Expires: 03/01/2024 [facility] [facility] Service Area Work Phone: Comment on above: Expected: 03/01/2023 (Approximate), Expires: 03/01/2024 Start: 03-01-2023 End: 03-01-2024 Lipid 1996 panel - Serum or Plasma Lipid Panel Lab Routine Hyperlipidemia, unspecified hyperlipidemia type Expected: 03/01/2023 (Approximate), Expires: 03/01/2024 [facility] Work Phone: Comment on above: Expected: 03/01/2023 (Approximate), Expires: 03/01/2024 Start: 12-25-2022 Influenza vaccination Influenza Vacc ine (#1) [facility] Start: 04-13-2022 CAROTID, Provider: [facility] ULTRASOUND 01,[id number], Status: Pen, Time: 10:45 AM CAROTID, Provider: B[facility] ULTRASOUND 01,[id number], Status: Pen, Time: 10:45 AM [facility] Work Phone: Start: 04-13-2022 ECHO, Provider: BINH [facility] ULTRASOUND 01,[id number], Status: Pen, Time: 10:45 AM ECHO, Provider: [facility] ULTRASOUND 01,[id number], Status: Pen, Time: 10:45 AM -[facility] 250 DO Work Phone: Start: 01-29-2022 FUV, Provider: Adelaida Hargrove, Status: Pen, Time: 1:00 PM FUV, Provider: Adelaida Hargrove, Status: Pen, Time: 1:00 PM -[facility] 250 DO Work Phone: Start: 08-19-2021 STRESS NUC, Provider : [facility] NUCLEAR 01,[id number], Status: Pen, Time: 12:00 PM STRESS NUC, Provider: [facility] NUCLEAR 01,[id number], Status: Pen, Time: 12:00 PM -[facility] 250 DO Work Phone: Start: 08-07-2021 FUV, Provider: Tracey Pitt, Status: Pen, Time: 2:45 PM FUV, Provider: Tracey Pitt, Status: Pen, Time: 2:45 PM -[facility] 250 DO Work Phone: Start: 06-08-2021 COVID-19 Vaccine (4 - Moderna series) COVID-19 Vaccine (4 - Moderna series) [facility] Start: 11-24-2018 Pneumococcal Vaccine : 65+ Years (2 - PPSV23 or PCV20) Pneumococcal Vaccine: 65+ Years (2 - PPSV23 or PCV20) [facility] Start: 1993 Zoster Vaccines (1 o f 2) Zoster Vaccines (1 of 2) [facility] Start: 1961 Diabetes mellitus screening Diabetes Screening [facility] Start: 1961 Hepatitis C screening Hepatitis C Sc reening [facility] Start: 1943 Lipid panel Lipid Panel [facility] Start: 1943 Medicare Annual Wellness Visit Medicare Annual Wellness Visit (AWV) [facility] Start: 1943 Screening for osteoporosis Bone Density Scan [facility] Immunizations Immunization Date Immunization Notes Care Provider Emmanuel kaba 04-13-2021 Pfizer-BioNTech COVID-19 Vacc 30 MCG/0.3ML Intramuscular Suspension John Lentz Work Phone: [facility] 250 DO Work Phone: 07-02-2020 Moderna COVID-19 Vaccine 100 MCG/0.5ML Intramuscular Suspension John Lentz Work Phone: [facility] 250 DO Work Phone: 06-03-2020 Moderna COVID-19 Vaccine 100 MCG/0.5ML Intramuscular Suspension John Lentz Work Phone: [facility] 250 DO Work Phone: 09-29-2018 pneumococcal conjuga te vaccine, 13 valent John Lentz Work Phone: [facility] 250 DO Work Phone: 08-16-2018 tetanus toxoid, redu luis diphtheria toxoid, and acellular pertussis vaccine, adsorbed Adelaida Hargrove MD Work Phone: [facility] Work Phone: 02-16-2017 influenza virus vaccine, split virus (incl. purified surface antigen) John Lentz Other [employer] Other 02-16-2017 influenza, high dose seasonal, preservative-free John Kevin Lentz Work Phone: [facility] [employer] [facility] Work Phone: 02-16-2017 influenza virus vaccine, unspecified formulation Adelaida Hargrove MD Work Phone: [facility] Work Phone: 01-24-2017 influenza virus vaccine, unspecified formulation John Lentz Work Phone: [facility] [employer] DO Work Phone: 01-25-2016 influenza virus vaccine, split virus (incl. purified surface antigen) John Lentz Other [employer] Other 01-25-2016 influenza, high dose seasonal, preservative-free John Lentz Work Phone: [facility] [employer] DO Work Phone: 03-02-2015 influenza, injectabl e, quadrivalent, preservative free John Lentz Work Phone: [facility] [employer] DO Work Phone: 03-02-2015 tetanus and diphther ia toxoids, adsorbed, preservative free, for adult use (5 Lf of tetanus toxoid and 2 Lf of diphtheria toxoid) John Lentz Other [employer] Other 02-12-2009 pneumococcal conjuga te vaccine, 7 valent John Lentz Work Phone: [facility] [employer] DO Work Phone: 01-30-2009 influenza virus vaccine, whole virus John Lentz Work Phone: [employer] [employer] DO Work Phone: Payers Date Payer Category Payer Unknown [id number] 2016 Unknown 2016 Unknown [id number] 2008 Medicare MEDICARE MEDICAR E PART A AND B [id number] 2008-Present [address] [place] [address] [id number] 1959 Medicare [id number] 1959 Self-pay 1959 Unknown [id number] 1943 Unknown [id number] [id number]3 1943 Unknown [id number] 2.16.840.1.049555.3.579.2.593 1943 Unknown [id number] 2.16.840.1.004591.3.579.2.593 1943 Unknown [id number] 2.16.840.1.682855.3.579.2.593 1943 Unknown [id number] 2.16.840.1.409477.3.579.2.593 1943 Unknown [id number] 2.16.840.1.090740.3.579.2.593 1943 Unknown [id number] 2.16.840.1.854424.3.579.2.593 1943 Unknown [id number] 2.16.840.1.511746.3.579.2.593 1943 Unknown [id number] 2.16.840.1.529131.3.579.2.593 1943 Unknown [id number] 2.16.840.1.851566.3.579.2.593 1943 Unknown [id number] 2.16.840.1.081974.3.579.2.593 1943 Unknown [id number] 2.16.840.1.295177.3.579.2.593 1943 Unknown [id number] 2.16.840.1.269867.3.579.2.593 1943 Unknown [id number] 2.16.840.1.133429.3.579.2.593 1943 Unknown [id number] 2.16.840.1.906807.3.579.2.356 1943 Unknown [id number] 2.16.840.1.709200.3.579.2.356 1943 Unknown [id number] 2.16.840.1.681494.3.579.2.1068 1943 Unknown [id number] 2.16.840.1.655073.3.579.2.1068 1943 Unknown [id number] 2.16.840.1.073708.3.579.2.1244 Unknown [id number] 2.16.840.1.121280.3.579.2.593 Unknown [id number] 2.16.840.1.831592.3.579.2.593 Unknown [id number] 2.16.840.1.584299.3.579.2.531 Social History Date Type Detail Facility Start: 08-07-2021 End: 03-01-2023 Daily caffeine consumption, 2-3 servings a day Daily caffeine consumption, 2-3 servings a day [facility] Comment on above: Quit cigs 2009; 1 cup of coffee harshil y; Start: 08-07-2021 End: 03-01-2023 Sex Assigned At [facility] Start: 03-01-2023 Tobacco smoking stat us KYIS Ex-smoker [facility] End: 04-26-2009 History of tobacco use Current smoker [facility] Work Phone: End: 04-26-2009 History of tobacco use Cigarette Smoker [facility] Work Phone: Start: 03-01-2023 Tobacco use and exposure Smokeless tobacco non-user [facility] Work Phone: Start: 03-01-2023 Alcohol intake Lifetime non-d annemarie (finding) [facility] Work Phone: Start: 1945 [facility]: Start: 02-19-2023 End: 03-01-2023 Exposure to SARS-CoV-2 (event) Not sure [facility] Functional Status Date Assessment Result Facility 08-07-2021 PHQ-9 [id number] Moderate (10-14) [facility] 250 DO Work Phone: Clinical Notes 07-25-2018 to 05-17-2023 Note Date & Type Note Facility 05-17-2023 Evaluation note Encounter Date Diagnosis Assessment Notes Apr, Chronic obstructive pulmonary disease, unspecified COPD type (ICD-10 - J44.9) [employer] Other 01-05-2024 Evaluation note* Encounter Date Diagnosis Assessment Notes Treatment Notes Treatment Clinical Notes Apr, Chronic obstructive pulmonary disease, unspecified COPD type (ICD-10 - J44.9) [facility] Other 01-04-2024 Evaluation note* Encounter Date Diagnosis Assessment Notes Treatment Notes Treatment Clinical Notes Apr, Chronic pain (ICD-10 - G89.29) [facility] Other 01-04-2024 Evaluation note* Encounter Date Diagnosis [...] to AKA history. Sees pain managment in [place] Apr, Pneumonia, unspecified organism (ICD-10 - J18.9) Pulmonolary consult. Improving. 04 Curtis, 2024 Nosocomial condition (ICD-10 - Y95) Apr, Atrial fibrillation with RVR (ICD-10 - I48.91) presently in regular rhythm [facility] Other 12-21-2023 Evaluation note* Encounter Date Diagnosis Assessment Notes Treatment Notes Treatment Clinical Notes Mar, Acute UTI (ICD-10 - N39.0) UA will be taken to hospital Pt cannot provide UA presently. We suspect UTI due to her recent confustion. Order printed and given to daughter. She will take it to [facility] when she goes to work tomorrow. Mar, Cellulitis of right leg (ICD-10 - L03.115) Patient is advised to stay well hydrated. Finish the full antibiotic until gone. Patient is advised to add a probiotic to their diet such as yogurt. Follow up to let us know if symptoms have improved Mar, Chronic constipation (ICD-10 - K59.09) samples of miralax given [facility] Other 12-20-2023 Evaluation note* Encounter Date Diagnosis Assessment Notes Treatment Notes Treatment Clinical Notes Mar, Confusion (ICD-10 - R41.0) [facility] [facility] Other 12-18-2023 [facility] Note-stable, concerns for hypotension given first BP in office had SBP [facility]12-18-2023 Note-recovered EF per recent echo 03/2023 EF 55-60% -NYHA unable to asses given wheel chair bound and left AKA< she does state she is able to do basic ADLs -GDMT: stop lisionpril given hypotension, stop coreg, Will start toprol xl 25mg daily and do event monitor to watch for RVR -prioritizing rate control at this time -continue aldactone 25mg, start toprol xl 25mgUnRegency Hospital [place] [facility]12-18-2023 Note-s/p left AKAUniversSelect [facility]12-18-2023 Note-noted in hx, sees a vascular surgeonUnReg[facility] 12-18-2023 Note-s/p stent to RCA and ostial left main in 2019 -will increase to high intensity statin 40mg lipitor given she is done drinking -stop ASA and start eliquis 2.5mg BID for AF, ct plavix -noted to not be a good candidate for CABG given resp diseaseUnRegency Hospital [place] [facility]12-18-2023 Note- stable, she is on supplemental O2 as needed - she may not be a great candidate for amiodaroneUniversSelect Medical Special[facility] [place]12-18-2023 NoteNew patient here to establish care. She was recently discharged from [facility] for new onset afib. AC was not started. She has a right carotid stent that was placed years ago at [facility]. She does not still follow with vascular surgeon. She is transferring cardiology care from [facility] to [place]. Review of Systems Cardiovascular: Positive for dyspnea on exertion and leg swelling (RLE). Respiratory: Positive for cough and shortness of breath. All other systems reviewed and are negative.[facility] 04-12-2023 NoteUT Electrophysiology Consult Note Reason for [...] follow-up with cardiology and is switching to [facility] She was admitted to [facility] with new onset A-fib, alcohol withdrawal which was treated with benzodiazepines, sepsis, respiratory failure, COPD exacerbation all likely due to COVID infection, she was discharged 04/01/2023. 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 She states she has stopped drinking since [...] (CMS/HCC) COPD (chronic obstructive pulmonary disease) (CMS/[facility]) Hyperlipidemia PSH: No past surgical history on [...] feeling safe in r (more content not included)...[facility]11-28-2023 Evaluation note* Encounter Date Diagnosis Assessment Notes [...] such as patterns or other associated symptoms [facility] Other 11-27-2023 Evaluation note* Encounter Date Diagnosis Assessment Notes Treatment Notes Treatment Clinical Notes Feb, Chronic pain (ICD-10 - G89.29) [facility] Other 11-06-2023 History of Present illness Narrative* [...] List Diagnosis Date Noted Amputation of leg ([facility]) 03/01/2023 History of right-sided carotid endarterectomy 03/01/2023 Arteriosclerosis of coronary artery 02/26/2023 Bilateral carotid bruits 02/26/2023 Chronic obstructive pulmonary disease ([facility]) 02/26/2023 Hyperlipidemia 02/26/2023 Ischemic cardiomyopathy 02/26/2023 Primary [...] flow Problems addressed today included atherosclerotic [place] vessel coronary artery disease, hyperlipidemia, cerebrovascular disease, [...] MONTHS Adelaida Hargrove MD [facility] Work Phone: 1(421) 853-568811-06-2023 Instructions* Patient Instructions* Tran Morales LPN - [...] of your visit. documented in this encounterOhio[facility] Work Phone: [phone]) 477-141406-27-2023 Evaluation note* Encounter Date Diagnosis Assessment Notes [...] discussion, agrees with plan, denies any questions. [facility] Other 05-30-2023 Evaluation note* Encounter Date Diagnosis Assessment Notes Treatment Notes Treatment Clinical Notes August, Acute bacterial conjunctivitis of both eyes (ICD-10 - H10.33) [place] [facility] is contagious. Wash hands frequently and try not to rub eyes. Use warm wash cloth to keep them clean or to remove discharge from eyes. Use drops until eyes are clear then 3 more days August, PAD (peripheral artery disease) (ICD-10 - I73.9) Pt agrees to referral to [facility]. 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 She is established w pain management for this problem August, Acute non-recurrent maxillary sinusitis (ICD-10 - J01.00) agrees to antibiotic for sore throat. August, History of left abov e knee amputation (ICD-10 - Z89.612) August, Chronic pain (ICD-10 - G89.29) Reviewed [facility] report. Refilled rx. [facility] Other 05-30-2023 Evaluation note* Encounter Date Diagnosis Assessment Notes Treatment Notes Treatment Clinical Notes August, Chronic pain (ICD-10 - G89.29) [facility] [facility] Other 02-06-2023 Evaluation note* Encounter Date Diagnosis [...] Continue to cover and monitor area. Vaccuum airplane cleaner fell on her leg and it is tender. May, Lumbar degenerative disc disease (ICD-10 - M51.36) chronic pain due to lumbar issues and BKA amputation. will call when pain med refill is needed. [facility] Other 04-14-2022 History of Present illness Narrative* [...] Ejection fraction is typically been estimated at qmjwir85%. She indicates that her breathing has progressively worsened again. She does not believe there is been really any change to her pulmonary status. -[facility] 250 DO Work Phone: 1(159) 729-271604-14-2022 History of Present illness Narrative* Previously seen [...] Ejection fraction is typically been estimated at cjsanu07%. She indicates that her breathing has progressively [...] lipid profile prior to next visit. [facility] 250 DO Work Phone: 1(166) 839-913604-14-2022 History of Present illness Narrative* Previously seen [...] Ejection fraction is typically been estimated at yghmyq11%. She indicates that her breathing has progressively [...] profile lipid profile prior to next visit. [facility] Work Phone: 1(108) 906-438701-28-2022 NoteHNO ID: [id number] Author: Chavez Dillard MD Service: ? Author [...] interventional pain procedures: Seen pain management in [facility] Did an injection with no relief [...] reproduction bilaterally. Extremities: Peripheral (more content not included)...[facility] 12-09-2020 NotePROCEDURE: MRI THIGH LT WO [...] Electronically authenticated by: JOSIE PARIS Date: 2020-12-09 16:49[facility]08-05-2021 NoteHISTORY AND PHYSICAL EXAMINATION HISTORY: This [...] be doing so in the near future. [facility] Signed and Approved by: ROXI MCCLENDON 11/28/2020 09:43:00[facility]08-05-2021 NoteOPERATIVE NOTE OPERATION DATE: 11-28-20 ANESTHETIC: [...] was injected into the anterior chamber and [facility] cell sponge was used to check the wounds to be water tight. One drop of apraclonidine and 1 drop of prednisolone acetate were placed into the eye and shield was placed over top. The patient was sent to the postoperative area in satisfactory condition to followup the following day for postoperative care. [facility] Signed and Approved by: ROXI MCCLENDON 12/26/2020 11:09:00[facility]07-06-2021 NotePAIN MANAGEMENT Consultation Date: 10-29-20 CHIEF [...] periosteum of the femur. cc:Dr. John Lentz. [facility] Signed and Approved by: DR DORA BELLA 11/05/2020 12:13:00[facility]07-01-2021 NoteHISTORY AND PHYSICAL EXAMINATION HISTORY: The [...] and go forward with her elective procedure. [facility] Signed and Approved by: ROXI MCCLENDON 10/24/2020 11:46:00[facility]07-01-2021 NoteOPERATIVE NOTE OPERATION DATE: 10-24-20 ANESTHETIC: [...] was injected into the anterior chamber and [facility] cell sponge was used to check the wounds to be water tight. One drop of apraclonidine and 1 drop of prednisolone acetate were placed into the eye and shield was placed over top. The patient was sent to the postoperative area in satisfactory condition to followup the following day for postoperative care. [facility] Signed and Approved by: ROXI MCCLENDON 11/27/2020 16:58:00[facility]06-22-2021 NotePAIN MANAGEMENT Consultation Date: 10-15-20 CHIEF COMPLAINT: Left sdgcz-nlz-tgsg amputation stump pain. HISTORY OF PRESENT ILLNESS: [...] 2. Lumbar spondylosis. 3. Status post left hlchr-enh-ospr amputation 2018. 4. Stump pain. 5. Neuromatous [...] daughter understand and would like to proceed. [facility] Signed and Approved by: DR DORA BELLA 10/29/2020 10:44:00[facility]06-22-2021 NotePAIN MANAGEMENT PROCEDURE NOTE Date: 10-15-20 PRE AND POST PROCEDURE DIAGNOSIS: Neuromatous stump pain, neuromatous pain status post left tiupc-hen-gxzo amputation. PROCEDURE NAME:Neuroma stump injection. PROCEDURE: Subsequent [...] pain symptomatology that would have been present. [facility] Signed and Approved by: DR DORA BELLA 10/29/2020 10:44:00[facility]04-26-2021 NotePAIN MANAGEMENT Consultation Date: 08-19-20 HISTORY [...] baclofen. 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 On July 30 the [...] her pain. Dictated by Hemant Red APRN [facility] Signed and Approved by: HEMANT RED 08/26/2020 16:35:00[facility]03-08-2021 NoteCONSULTATION Consultation Date: 07/01/2020 PAIN MANAGEMENT CONSULTATION HISTORY OF PRESENT ILLNESS: This is a very pleasant 75-year-old female patient who comes to the [facility] for the very first time. [...] patient had stents July of 2018 at [facility]. Originally the patient was placed on Plavix [address] Arnold; however, Dr. Pitt in [place] took over the Plavix medication. The patient [...] the lumbar x-ray is without any deformities. [facility] Signed and Approved by: HEMANT RED 07/08/2020 17:02:00[facility]03-08-2021 NoteCONSULTATION Procedure Date: 07/01/2020 PROCEDURE NOTE: [...] signs were obtained and were stable. . [facility] Signed and Approved by: HEMANT RED 07/08/2020 17:03:00[facility]04-01-2019 History of Present illness Narrative* Mrs. [...] Ejection fraction is typically been estimated at uyaldd98%. She indicates that her breathing has progressively [...] is completed. No change made to medications. -[facility] 250 DO Work Phone: Evaluation noteNo [employer] [email or web address] Other Evaluation note* Diagnosis Arteriosclerosis of coronary [...] carotid endarterectomy documented in this encounter [facility] Work Phone: History general Narrative - [...] Hospitalization History Suicide Hospitalization History See above [facility] Other Hisfbrw general Narrative - Reported* Type Description Date [...] Hospitalization History Suicide Hospitalization History See above [facility] Other Reason for referral (narrative)* Consultation (Routine) - Authorized Specialty Diagnoses / Procedures Referred By Contruben t Referred To Contact Cardiology Diagnoses Arteriosclerosis of coronary artery Procedures Follow Up In Cardiology Adelaida Hargrove MD [address] [place] [address] Adelaida Hargrove MD [address] [place] [address] Referral ID Status Reason Start Date Expiration Date V isits Requested Visits Authorized [id number] Authorized 03/01/2023 02/29/2024 1 1 [facility] Work Phone: Summary Purpose Family History [...] disease, unspecified COPD type (J44.9) Referral Organization [facility] iglesia Referring Provider First Name John Referring Provider Last Name Abhijeet Referring Provider Specialty [facility] [employer] Referred Organization [facility] Referred Provider RubioTahir Referred Address [address], [place],[address] Referred Provider Specialty Pulmonary Fidelina seases Referral Priority Routine General Notes Dai Aaron 07:48:28 AM >received today, attachments made, notes locked, referral faxed Clinical Notes p: [phone] f: [phone] Reason *Waiting for appt Former pt of Dr. Mejia - now has swelling and discoloration in R lower leg. Hx of L AKA Diagnosis 1 PAD (peripheral yuli ry disease) (I73.9) Referral Organization [facility] iglesia Referring Provider First Name John Referring Provider Last Name Abhijeet Referring Provider Specialty [facility] Referred Organization [facility] [place] Referred Provider Jaspreet Ventura Referred Address [address],[id number] Referred Provider Specialty Vascular April christianne Referral Priority Routine General Notes Dai Aaron 01:06:20 PM >received today, faxed P2P Additional Source Comments INFORMATION SOURCE (unrecogn ized section and content) DATE CREATED AUTHOR 01/02/2021 [facility] DATE CREATED AUTHOR AUTHOR'S ORGANIZ ATION 07/18/2021 [facility] DATE CREATED AUTHOR AUTHOR'S ORGANIZ ATION 02/27/2022 [facility] DATE CREATED AUTHOR AUTHOR'S ORGANIZ ATION 02/27/2022 [employer] DATE CREATED AUTHOR AUTHOR'S ORGANIZ ATION 04/17/2022 [facility] DATE CREATED AUTHOR AUTHOR'S ORGANIZ ATION 12/18/2022 [facility] DATE CREATED AUTHOR AUTHOR'S ORGANIZ ATION 03/02/2023 [facility] DATE CREATED AUTHOR AUTHOR'S ORGANIZ ATION 04/13/2023 [facility] REASON FOR VISIT (unrecogniz ed section and content) Reason Comments Follow-up 1 year Care Teams (unrecognized sec tion and content) [employer] Designer Relationship Specialty Start Date End Date John Lentz MD [address] [place], [place] [id number] PCP - General 11/03/18 FOR RECORDS PERTAINING [...] BE BASED ON THE PRIMARY CLINICAL RECORDS. [facility]. provides no warranty or guarantee of the accuracy or completeness of information in this document.
--- NOTE | 2023-06-02 09:47 | PM.PN ---
Progress Note: Subjective Subjective Interval history: Patient is still with significant dyspnea. She is back at her baseline oxygen but unable to ambulate secondary to the severity of her shortness of breath. Patient does feel the IPV treatments help Exam Constitutional Vital Signs, click to edit/add: Last Vital Signs Temp 98.1 F 06/02/23 04:24 Pulse 94 H 06/02/23 08:00 Resp 18 06/02/23 08:00 BP 142/94 H 06/02/23 08:13 Pulse Ox 95 06/02/23 04:47 O2 Del Method Nasal Cannula 06/02/23 04:47 O2 Flow Rate 3 06/02/23 04:47 Documenting provider has reviewed patient's vital signs: yes Common normals: apparent distress (Moderate respiratory distress with moderate conversational dyspnea) Chest Common normals: inspection of chest normal Respiratory Common normals: no retractions; abnormal respiratory effort Effort & inspection: tachypneic and respiratory distress (Mild conversational dyspnea) Auscultation: rhonchi, wheezes (Wheezes on initial exam, better today, just had aerosol treatment) and diminished lung sounds Cardio Common normals: regular rate Rhythm: abnormal rhythm GI Common normals: Normal to inspection, nondistended, normoactive bowel sounds present Progress Note: Objective Labs Labs: Short CBC 06/01/23 06/02/23 Range/Units 10:35 04:25 WBC 6.8 3.5 L (4.0-11.0) 10^3/uL Hgb 11.0 L 10.7 L (12.0-16.0) g/dL Hct 35.9 L 36.4 (36.0-48.0) % Plt Count 318 317 (150-450) 10^3/uL BMP 06/01/23 06/02/23 10:35 04:25 Sodium 141 140 Potassium 4.0 4.2 Chloride 106 107 Carbon Dioxide 25.7 26.2 BUN 7.0 12.0 Creatinine 0.83 0.89 Glucose 122 H 246 H Calcium 9.0 9.1 Liver Function 06/01/23 06/02/23 Range/Units 10:35 04:25 Total Bilirubin 0.5 0.4 (0.2-1.0) mg/dL Direct Bilirubin 0.1 (0.0-0.2) mg/dL AST 18 13 L (15-37) U/L ALT 14 16 (14-59) U/L Alkaline Phosphatase 97 88 (46-116) U/L Albumin 3.0 L 3.0 L (3.4-5.0) g/dL Progress Note: A&P Assessment and Plan (1) Community acquired pneumonia: (2) HTN (hypertension): Qualifiers: Hypertension type: primary hypertension Qualified Code(s): I10 - Essential (primary) hypertension (3) COPD (chronic obstructive pulmonary disease): Qualifiers: COPD type: COPD with acute exacerbation Qualified Code(s): J44.1 - Chronic obstructive pulmonary disease with (acute) exacerbation (4) Chronic respiratory failure with hypoxia: (5) Oxygen dependent: (6) Atrial fibrillation with RVR: (7) Hyperglycemia: Plan (1) Community acquired pneumonia: Assessment and Plan: Acquired bilateral lower lobe pneumonia-failed outpatient treatment. Also acute exacerbation of her COPD. Steroids, aerosols, try IPV, patient is on her baseline supplemental oxygen of 3 L but still with significant dyspnea. Not significantly improved from yesterday, still dyspnea with any activity in the room. Consult to pulmonology (2) HTN (hypertension): Continue with medications-stable (3) COPD (chronic obstructive pulmonary disease): See above (4) Chronic respiratory failure with hypoxia: Assessment and Plan: O2 dependent for her COPD. 3 L baseline (5) Oxygen dependent: (6) Atrial fibrillation with RVR: Assessment and Plan: A little tachycardic but could be related to her dyspnea. Stable, consideration for changing to Xopenex Assessment and Plan: Unfortunate unable to be discharged to home today. With failed outpatient treatment and no significant improvement so far, consult to pulmonology, likely here at least 1 more day more likely to, with her treatment care spanning 2 midnights as she will require inpatient admission
--- NOTE | 2023-06-02 10:18 | CM.NOTE ---
Rounds made with Dr. Barnhart. Dr. Barnhart to obtain Pulmonary Consult and will order an Echocardiogram. Ms. Merritt verbalizes understanding.
[2023-06-02] MEDS: BUDESONIDE 0.5 MG/2 ML AMPULE NEB IH ×2 (10:37→22:32)
--- NOTE | 2023-06-02 12:00 | CM.NOTE ---
Medicare Outpatient Observation Notice (ROYAL) reviewed and signed by Ms. Merritt. Verbalizes no questions. Original to Ms. Merritt, copy to chart.
--- NOTE | 2023-06-02 12:15 | CM.NOTE ---
Spoke with daughter, Millie regarding her mother. Her mother has oxygen through [employer] and is current with [facility].
[2023-06-02 12:19] LABS: Glucometer 171 mg/dL (74-106)
[2023-06-02] MEDS: AZITHROMYCIN 500 MG in 0.9 % SODIUM CHLORIDE 250 ML 250 MG IV (12:31)
--- NOTE | 2023-06-02 12:33 | SWNOTE1 ---
Pt has [facility] currently and she has home oxygen from [facility], 3 liters at home. SW to send updates to [facility].
[2023-06-02] MEDS: METHYLPREDNISOLONE SOD SUCC PF 125 MG/2 ML VIAL 60 MG IVP ×3 (12:59→23:29)
--- NOTE | 2023-06-02 14:20 | P.PLCN_ITS ---
History of Present Illness History of Present Illness Requesting physician: Robert Barnhart Chief complaint: SHORTNESS OF BREATH Narrative: 78yo female, previously established with me with last visit 06/09/2019, let my practice for an unknown reason and was being [place] [facility] [place] wished to re- establish here @ [facility] and was scheduled on 06/23/2023. Over the past 2-3 months, she has been diagnosed with pneumonia ~3 times. She states she is around ill family members at times, but others she does not know how she became ill. Most recently, she was dyspneic for 3 days prior to admission. She has difficulty expectorating, complains of chest congestion. Denies any fevers, chills, sweats. She admits that she chokes on water. Review of Systems ROS Status of ROS 10 or more systems reviewed and unremark able except as noted in history and below [facility] Medical History (Updated 06/01/23 @ 15:33 by Robert Barnhart MD) Right lower lobe lung mass ?R91.8 - Other nonspecific abnormal finding of lung field (ICD-10) Acute on chronic diastolic (congestive) heart failure ?I50.33 - Acute on chronic diastolic (congestive) heart failure (ICD-10) HTN (hypertension) ?I10 - Essential (primary) hypertension (ICD-10) Atrial fibrillation with RVR ?I48.91 - Unspecified atrial fibrillation (ICD-10) Acute and chronic respiratory failure with hypoxia ?J96.21 - Acute and chronic respiratory failure with hypoxia (ICD-10) COPD (chronic obstructive pulmonary disease) ?J44.9 - Chronic obstructive pulmonary disease, unspecified (ICD-10) Right leg injury ?S89.91XA - Unspecified injury of right lower leg, initial encounter (ICD-10) Pneumonia ?J18.9 - Pneumonia, unspecified organism (ICD-10) Chronic respiratory failure with hypoxia ?J96.11 - Chronic respiratory failure with hypoxia (ICD-10) Alcohol abuse ?F10.10 - Alcohol abuse, uncomplicated (ICD-10) New onset a-fib ?I48.91 - Unspecified atrial fibrillation (ICD-10) COVID-19 ?U07.1 - COVID-19 (ICD-10) HLD (hyperlipidemia) ?E78.5 - Hyperlipidemia, unspecified (ICD-10) PAD (peripheral artery disease) ?I73.9 - Peripheral vascular disease, unspecified (ICD-10) Oxygen dependent ?Z99.81 - Dependence on supplemental oxygen (ICD-10) Surgical History (Updated 04/22/23 @ 14:44 by Vanita Maloney) History of carpal tunnel surgery ?Z98.890 - Other specified postprocedural states (ICD-10) H/O: hysterectomy ?Z90.710 - Acquired absence of both cervix and uterus (ICD-10) Amputated left leg ?S88.912A - Complete traumatic amputation of left lower leg, level unspecified, initial encounter (ICD-10) Social History Within the past year, how often did you have a drink containing alcohol: 4 or more times a week Within the past year, how many standard drinks containing alcohol did you have on a typical day: 3 or 4 Within the past year, how often did you have six or more drinks on one occasion: weekly Total score: 5 Score interpretation: A score of 3 or more indicates drinking is likely to affect patient's safety. Smoking status: Former smoker Highest level of school completed/degree received: high school graduate Do you think of yourself as: straight/heterosexual Gender Identity: female Meds Home Medications and Allergies Home Medications Medication Instructions Recorded Confirmed Type albuterol 90 mcg/actuation aerosol 90 mcg inhalation .q 4 hours PRN 03/27/23 06/01/23 History inhaler sob budesonide-formoterol HFA 160 2 inh inhalation Q12H 03/27/23 06/01/23 History mcg-4.5 mcg/actuation aerosol inhaler (Symbicort) docusate sodium 100 mg capsule 100 mg PO BID 03/27/23 06/01/23 History duloxetine 60 mg capsule,delayed 60 mg PO DAILY 03/27/23 06/01/23 History release gabapentin 800 mg tablet 800 mg PO TID 03/27/23 06/01/23 History nitroglycerin 0.4 mg sublingual 0.4 mg sublingual Q5M PRN chest 03/27/23 06/01/23 History tablet pain oxycodone 10 mg tablet 10 mg PO Q6H PRN pain 03/27/23 06/01/23 History pantoprazole 40 mg tablet,delayed 40 mg PO DAILY 03/27/23 06/01/23 History release tizanidine 4 mg tablet 4 mg PO TID PRN muscle spasticity 03/27/23 06/01/23 History apixaban 2.5 mg tablet (Eliquis) 2.5 mg PO BID 04/22/23 06/01/23 History atorvastatin 40 mg tablet 40 mg PO .qhs 06/01/23 06/01/23 History clopidogrel 75 mg tablet 75 mg PO DAILY 06/01/23 06/01/23 History furosemide 40 mg tablet 40 mg PO DAILY 06/01/23 06/01/23 History lorazepam 0.5 mg tablet 0.5 mg PO BID PRN anxiety 06/01/23 06/01/23 History metoprolol succinate 25 mg 25 mg PO DAILY 06/01/23 06/01/23 History tablet,extended release 24 hr spironolactone 25 mg tablet 25 mg PO DAILY 06/01/23 06/01/23 History Allergies Allergy/AdvReac Type Severity Reaction Status Date / Time vancomycin Allergy Intermediate Rash Verified 06/01/23 10:34 Exam Constitutional Vital Signs, click to edit/add: Last Vital Signs Temp 97.6 F 06/02/23 13:10 Pulse 114 H 06/02/23 13:53 Resp 18 06/02/23 13:10 BP 107/63 06/02/23 13:10 Pulse Ox 92 L 06/02/23 13:10 O2 Del Method Nasal Cannula 06/02/23 13:10 O2 Flow Rate 3 06/02/23 13:10 Documenting provider has reviewed patient's vital signs: yes Common normals: no apparent distress HENMT Other: Wearing nasal cannula Chest Common normals: inspection of chest normal Respiratory Effort & inspection: able to speak in complete sentences and actively coughing non-productive and moist Auscultation: rhonchi throughout (mild) Cardio Rhythm: abnormal rhythm irregularly irregular GI Inspection: normal to inspection Extremity Left lower extremity: upper leg Left upper leg: inspection (AKA) Neuro Sensorium/orientation: awake and alert Psych Common normals: mental status grossly normal Results Laboratory Findings Abnormal lab findings: Abnormal Labs 06/01/23 06/01/23 06/01/23 10:35 13:47 16:07 WBC RBC 3.59 L Hgb 11.0 L Hct 35.9 L MCV 100.0 H MCHC Neut % (Auto) Lymph % (Auto) Eos % (Auto) Baso % (Auto) Lymph # (Auto) [place] # (Auto) Glucose 122 H Lactate 2.4 H* AST NT-Pro-B Natriuret Pep 2711.0 H* Albumin 3.0 L POC Glucose 214 H 06/01/23 06/02/23 06/02/23 20:40 04:25 12:19 WBC 3.5 L RBC 3.65 L Hgb 10.7 L Hct MCV 99.7 H MCHC 29.4 L Neut % (Auto) 82.2 H Lymph % (Auto) 15.5 L Eos % (Auto) 0.0 L Baso % (Auto) 0.0 L Lymph # (Auto) 0.5 L [place] # (Auto) 0.1 L Glucose 246 H Lactate AST 13 L NT-Pro-B Natriuret Pep 4290.0 H* Albumin 3.0 L POC Glucose 193 H 171 H Diagnostic Findings Chest x-ray: report reviewed CT scan - chest: report reviewed PFT's: report reviewed Assessment and Plan Assessment and Plan (1) Pneumonia: Assessment and Plan: 1. Pneumonia. With recent hospitalizations, would technically be healthcare- acquired pneumonia. Began February 2023 with COVID. Differential for recurrent infections include immunodeficiency, but would need to be off steroids. Questioned aspiration/choking. The patient admitted that she frequently chokes on water. Denies any prior history of speech evaluation or barium swallow, etc. For now, ordering a speech therapy evaluation. Would continue with current medications as already prescribed. Re-enforced the need for an aggressive pulmonary toilet. I placed her PEP within reach and instructed to use it frequently. She will need a F/U chest CT. 2. Centrilobular emphysema. I will need to review what has been done over the past 4 years at her visit scheduled 06/23/2023. 3. Acute on chronic hypoxic respiratory failure. Continue O2. 4. Steroid-induced hyperglycemia. 5. History of tobacco abuse.
--- NOTE | 2023-06-02 15:57 | SWNOTE1 ---
MARIOLA sent physician notes and speech evaluation to Kris CRAIG.
[2023-06-02 16:08] LABS: Glucometer 171 mg/dL (74-106)
[2023-06-02] MEDS: SODIUM CHLORIDE 0.9% INHALATION 3 ML NEB 6 ML IH ×2 (17:04→22:32)
[2023-06-02 17:32] LABS: Bilirubin Urine NEGATIVE (NEGATIVE); Blood Urine NEGATIVE (NEGATIVE); Clarity Urine CLEAR (CLEAR); Color Urine LT. YELLOW (YELLOW); Glucose Urine UA NEGATIVE (NEGATIVE); Ketones Urine NEGATIVE (NEGATIVE); Leukocyte Esterase Urine NEGATIVE (NEGATIVE); Nitrite Urine NEGATIVE (NEGATIVE); Protein Urine NEGATIVE (NEG/TRACE); Specific Gravity Urine <=1.005 (1.005-1.025); Urobilinogen Urine 0.2 EU/dL (0.2-1.0); pH Urine 5.5 (5.0-9.0)
[2023-06-02 17:48] LABS: Urine Microscopic Indicated NO
[2023-06-02 20:26] LABS: Glucometer 200 mg/dL (74-106)
[2023-06-02] MEDS: ATORVASTATIN CALCIUM 40 MG TABLET PO (21:13)
[2023-06-03] VITALS (25 sets, daily range): BP systolic 108–141; BP diastolic 72–82; PULSE 75–134; RESP 16–20; TEMP 36.5–36.9; O2SAT 93–98
[2023-06-03] MEDS: PIPERACILLIN SODIUM/TAZOBACTAM 3.375 GM in 0.9 % SODIUM CHLORIDE 50 ML IV ×3 (01:41→20:41)
[2023-06-03] MEDS: SODIUM CHLORIDE 0.9% INHALATION 3 ML NEB 6 ML IH ×2 (05:15→16:51)
[2023-06-03] MEDS: IPRATROPIUM/ALBUTEROL SULFATE 3 ML AMPUL.NEB IH (05:15)
[2023-06-03] MEDS: GABAPENTIN 400 MG CAPSULE 800 MG PO ×3 (05:46→21:10)
[2023-06-03] MEDS: METHYLPREDNISOLONE SOD SUCC PF 125 MG/2 ML VIAL 60 MG IVP ×3 (05:46→23:51)
[2023-06-03] MEDS: OMEPRAZOLE 40 MG CAPSULE.DR PO (05:46)
[2023-06-03 06:08] LABS: Basophils Percent Auto 0.1 % (0.2-2.0); Hematocrit 38.1 % (36.0-48.0); Hemoglobin 11.3 g/dL (12.0-16.0); Immature Granulocytes Abs Auto 0.03 10^3/uL (0.00-0.03); Immature Granulocytes Pct Auto 0.3 % (0.0-0.5); Lymphocytes Absolute Auto 0.7 10^3/uL (1.2-3.8); Lymphocytes Percent Auto 8.1 % (20.5-60.0); Mean Corpuscular HGB Conc 29.7 g/dL (29.9-35.2); Mean Corpuscular Hemoglobin 29.9 pg (26.7-34.0); Mean Corpuscular Volume 100.8 fL (81.0-99.0); Mean Platelet Volume 10.4 fL (9.5-13.5); Monocytes Absolute Auto 0.4 10^3/uL (0.3-0.8); Monocytes Percent Auto 4.4 % (1.7-12.0); Neutrophils Absolute Auto 7.6 10^3/uL (1.4-6.5); Neutrophils Percent Auto 87.1 % (43.0-75.0); Platelet Count 390 10^3/uL (150-450); Red Blood Count 3.78 10^6/uL (4.20-5.40); Red Cell Distribution Width 15.5 % (11.0-15.0); White Blood Count 8.8 10^3/uL (4.0-11.0)
[2023-06-03 06:32] LABS: Alanine Aminotransferase 14 U/L (14-59); Albumin Globulin Ratio 0.8; Alkaline Phosphatase 78 U/L (46-116); Anion Gap 13.5; Aspartate Amino Transferase 13 U/L (15-37); BUN Creatinine Ratio 23.5; Bilirubin Total 0.3 mg/dL (0.2-1.0); Calcium 9.1 mg/dL (8.5-10.1); Carbon Dioxide 27.2 mmol/L (21.0-32.0); Chloride 107 mmol/L (98-107); Estimated GFR (African America >60 (>=60); Estimated GFR (Non-African Ame >60 (>=60); Globulin 3.8 g/dL; Glucose 167 mg/dL (74-106); Potassium 3.7 mmol/L (3.5-5.1); Sodium 144 mmol/L (136-145); Total Protein 6.8 g/dL (6.4-8.2)
--- NOTE | 2023-06-03 08:20 | PM.PLPN ---
Progress Note: A&P Assessment and Plan (1) Pneumonia: Assessment and Plan: 1. Pneumonia. Recommend continuing current antibiotics, pulmonary toilet. Suspicion for chronic aspiration with fluids. Evaluted by speech therapy - barium swallow scheduled for today. 2. Centrilobular emphysema. Cancel PFT scheduled outpatient prior to appointment with me - it will not be accurate. F/U with me on 06/23/2023. 3. Acute on chronic hypoxic respiratory failure. Continue O2. Baseline 3L/min. 4. Steroid-induced hyperglycemia. 5. History of tobacco abuse. Subjective Subjective Interval history: Patient states she feels a little better today. Tolerating treatments. Still coughing, choking on fluids. Seen by speech therapy - barium swallow scheduled for today. Exam Constitutional Vital Signs, click to edit/add: Last Vital Signs Temp 97.7 F 06/03/23 05:11 Pulse 126 H 06/03/23 07:54 Resp 18 06/03/23 05:15 BP 141/80 06/03/23 05:11 Pulse Ox 95 06/03/23 05:15 O2 Del Method Nasal Cannula 06/03/23 05:15 O2 Flow Rate 3 06/03/23 05:15 Documenting provider has reviewed patient's vital signs: yes Common normals: no apparent distress HENMT Other: Wearing nasal cannula Chest Common normals: inspection of chest normal Respiratory Other: Non-labored, but coughing frequently (non-productive). Diminished breath sounds, decreased crackles. No wheezes. Cardio Rate: regular rate Rhythm: regular rhythm GI Inspection: normal to inspection Extremity Left lower extremity: lower leg (AKA) Neuro Sensorium/orientation: awake and alert Psych Attitude: calm Speech: normal speech
[2023-06-03] MEDS: OXYCODONE HCL 5 MG TABLET 10 MG PO ×2 (09:13→15:07)
[2023-06-03] MEDS: DULOXETINE HCL 60 MG CAPSULE.DR PO (09:14)
[2023-06-03] MEDS: SPIRONOLACTONE 25 MG TABLET PO (09:14)
[2023-06-03] MEDS: DOCUSATE SODIUM 100 MG CAPSULE PO (09:17)
[2023-06-03] MEDS: APIXABAN 5 MG TABLET 2.5 MG PO ×2 (09:17→20:39)
[2023-06-03] MEDS: CLOPIDOGREL BISULFATE 75 MG TABLET PO (09:17)
[2023-06-03] MEDS: FUROSEMIDE 40 MG TABLET PO (09:17)
--- NOTE | 2023-06-03 09:52 | CM.NOTE ---
Rounds made with Dr. Barnhart. Modified Barium swallow to be completed today at ~ 1430. Will follow for recommendations.
--- NOTE | 2023-06-03 09:54 | P.PN_ITS ---
Progress Note: Subjective Subjective Interval history: Patient still with significant dyspnea. Cough persisting. Productive somewhat. Assessment patient went into A-fib with RVR. She has a history of A-fib already but the RVR was new. This was after changing patient to Xopenex. Patient was given 1 dose of Cardizem IV with some improvement for short period of time but did not last. Patient being transferred back to ICU Exam Constitutional Vital Signs, click to edit/add: Last Vital Signs Temp 97.7 F 06/03/23 05:11 Pulse 126 H 06/03/23 07:54 Resp 18 06/03/23 05:15 BP 126/77 06/03/23 09:14 Pulse Ox 95 06/03/23 05:15 O2 Del Method Nasal Cannula 06/03/23 05:15 O2 Flow Rate 3 06/03/23 05:15 Documenting provider has reviewed patient's vital signs: yes Common normals: apparent distress (Moderate respiratory distress with moderate conversational dyspnea) Chest Common normals: inspection of chest normal Respiratory Common normals: no retractions; abnormal respiratory effort Effort & inspection: tachypneic and respiratory distress (Mild conversational dyspnea) Auscultation: rhonchi, wheezes (Wheezes on initial exam, better today, just had aerosol treatment) and diminished lung sounds Cardio Common normals: regular rate Rhythm: abnormal rhythm GI Common normals: Normal to inspection, nondistended, normoactive bowel sounds present Progress Note: Objective Labs Labs: Short CBC 06/03/23 Range/Units 04:54 WBC 8.8 (4.0-11.0) 10^3/uL Hgb 11.3 L (12.0-16.0) g/dL Hct 38.1 (36.0-48.0) % Plt Count 390 (150-450) 10^3/uL BMP 06/03/23 04:54 Sodium 144 Potassium 3.7 Chloride 107 Carbon Dioxide 27.2 BUN 19.0 H Creatinine 0.81 Glucose 167 H Calcium 9.1 Liver Function 06/03/23 Range/Units 04:54 Total Bilirubin 0.3 (0.2-1.0) mg/dL AST 13 L (15-37) U/L ALT 14 (14-59) U/L Alkaline Phosphatase 78 (46-116) U/L Albumin 3.0 L (3.4-5.0) g/dL Urine 06/02/23 Range/Units 16:55 Urine Color Lt. yellow (YELLOW) Urine Clarity Clear (CLEAR) Urine pH 5.5 (5.0-9.0) Ur Specific [place] <=1.005 A (1.005-1.025) Urine Protein Negative (NEG/TRACE) mg/dL Urine Glucose (UA) Negative (NEGATIVE) mg/dL Progress Note: A&P Assessment and Plan (1) Pneumonia: (2) Community acquired pneumonia: (3) HTN (hypertension): Qualifiers: Hypertension type: primary hypertension Qualified Code(s): I10 - Essential (primary) hypertension (4) COPD (chronic obstructive pulmonary disease): Qualifiers: COPD type: COPD with acute exacerbation Qualified Code(s): J44.1 - Chronic obstructive pulmonary disease with (acute) exacerbation (5) Chronic respiratory failure with hypoxia: (6) Oxygen dependent: (7) Atrial fibrillation with RVR: (8) Hyperglycemia: Plan (1) Community acquired pneumonia: Acquired bilateral lower lobe pneumonia-failed outpatient treatment. Also acute exacerbation of her COPD. Steroids, aerosols, try IPV, patient is on her baseline supplemental oxygen of 3 L but still with significant dyspnea. Not significantly improved from yesterday, still dyspnea with any activity in the room. Consult to pulmonology-slow improvement overall. Consider changing antibiotics we will hold off at this time. (2) HTN (hypertension): Continue with medications-stable (2.25) Iron deficiency anemia-monitor daily slightly improved (2.5) Steroid-induced hyperglycemia (3) COPD (chronic obstructive pulmonary disease): See above (4) Chronic respiratory failure with hypoxia: O2 dependent for her COPD. 3 L baseline (5) Oxygen dependent: COPD (6) Atrial fibrillation with RVR: With possible acute combined congestive heart failure. Will try patient on Bumex drip, patient went into A-fib with RVR again. Rate was controlled previously. Give 1 dose of Cardizem without success. Patient being transferred back to ICU for IV Lanoxin. If that fails will be placed on Naedeon will. Continue maintain inpatient status. Patient here at least 2 more days, I reserve the right to redo those 2 days on an ongoing basis
--- NOTE | 2023-06-03 10:13 | CM.NOTE ---
Important Message from [employer] reviewed and signed. Ms. Merritt offers no questions. Original to Surendra René and copy to chart.
[2023-06-03] MEDS: BUMETANIDE 10 MG in 0.9 % SODIUM CHLORIDE 160 ML 20 MG IV (10:44)
[2023-06-03] MEDS: BUDESONIDE 0.5 MG/2 ML AMPULE NEB IH ×2 (11:07→23:22)
[2023-06-03] MEDS: IPRATROPIUM BROMIDE 0.5 MG/2.5 ML VIAL.NEB IH ×3 (11:07→23:22)
[2023-06-03] MEDS: LEVALBUTEROL HCL 0.63 MG/3 ML VIAL.NEB IH ×3 (11:07→23:22)
[2023-06-03 11:15] LABS: Glucometer 182 mg/dL (74-106)
[2023-06-03] MEDS: INSULIN ASPART 300 UNIT/3 ML PEN SUBQ (12:38)
--- NOTE | 2023-06-03 14:50 | FL_ITS ---
The [address] [address] Patient Name: SANCHEZ SAMSON MRN: [id number] date: 1945 Sex: F Assigned Patient Location: Current Patient Location: Accession/Order Number: [id number] Exam Date: 06/03/2023 14:20 Report Date: 06/03/2023 15:06 At the request of: JUAN GOMEZ Procedure: FL modified barium swallow EXAMINATION: FL modified barium swallow HISTORY: aspiration COMPARISON: No relevant comparison available. TECHNIQUE: A swallowing evaluation was performed with fluoroscopy in the usual manner. Standard level fluoroscopic mode of operation utilized. Speech pathology was present. The procedure was recorded FINDINGS: ORAL PHASE: Normal deglutition. PHARYNGEAL PHASE: Pooling of food stuffs in the vallecula and lower pharynx ASPIRATION: Penetration without aspiration with thin liquids, normal with nectar, honey and solid STRUCTURE: Normal. No visible obstruction, stricture, or dilatation. OTHER: Negative. FL/FL modified barium swallow IMPRESSION: Penetration without aspiration with thin liquids. This did elicit a significant cough reflex Electronically authenticated by: LORENA LATIF Date: 06/03/2023 15:06
[2023-06-03] MEDS: LORAZEPAM 0.5 MG TABLET PO (15:07)
--- NOTE | 2023-06-03 16:02 | ECG_ITS ---
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
[2023-06-03 16:04] LABS: Glucometer 82 mg/dL (74-106)
[2023-06-03] MEDS: DILTIAZEM HCL 25 MG/5 ML VIAL 10 MG IV (16:25)
[2023-06-03 17:07] LABS: Troponin I High Sensitivity 12.3 pg/mL (4.0-51.3)
[2023-06-03] MEDS: DIGOXIN 500 MCG/2 ML AMPUL 250 MCG IV (18:49)
[2023-06-03 19:43] LABS: Troponin I High Sensitivity 15.5 pg/mL (4.0-51.3)
[2023-06-03] MEDS: BENZONATATE 100 MG CAPSULE 200 MG PO (20:38)
[2023-06-03] MEDS: TIZANIDINE HCL 4 MG TABLET PO (20:40)
[2023-06-03 20:45] LABS: Glucometer 173 mg/dL (74-106)
[2023-06-03] MEDS: ATORVASTATIN CALCIUM 40 MG TABLET PO (21:10)
[2023-06-03 22:43] LABS: Troponin I High Sensitivity 14.1 pg/mL (4.0-51.3)
[2023-06-04] VITALS (21 sets, daily range): BP systolic 107–157; BP diastolic 76–94; PULSE 82–143; RESP 14–22; TEMP 36.4–36.8; O2SAT 94–99
[2023-06-04] MEDS: DIGOXIN 500 MCG/2 ML AMPUL 250 MCG IV (01:24)
[2023-06-04] MEDS: INSULIN ASPART 300 UNIT/3 ML PEN SUBQ ×4 (03:21→21:13)
[2023-06-04] MEDS: PIPERACILLIN SODIUM/TAZOBACTAM 3.375 GM in 0.9 % SODIUM CHLORIDE 50 ML IV ×3 (04:36→19:38)
[2023-06-04] MEDS: METHYLPREDNISOLONE SOD SUCC PF 125 MG/2 ML VIAL 60 MG IVP ×4 (04:36→22:44)
[2023-06-04] MEDS: GABAPENTIN 400 MG CAPSULE 800 MG PO ×3 (05:07→21:08)
[2023-06-04 05:08] LABS: Hematocrit 40.2 % (36.0-48.0); Hemoglobin 12.5 g/dL (12.0-16.0); Immature Granulocytes Abs Auto 0.03 10^3/uL (0.00-0.03); Immature Granulocytes Pct Auto 0.4 % (0.0-0.5); Lymphocytes Absolute Auto 0.8 10^3/uL (1.2-3.8); Mean Corpuscular HGB Conc 31.1 g/dL (29.9-35.2); Mean Corpuscular Hemoglobin 29.6 pg (26.7-34.0); Mean Platelet Volume 10.2 fL (9.5-13.5); Monocytes Absolute Auto 0.3 10^3/uL (0.3-0.8); Monocytes Percent Auto 3.5 % (1.7-12.0); Neutrophils Absolute Auto 7.2 10^3/uL (1.4-6.5); Neutrophils Percent Auto 87.1 % (43.0-75.0); Platelet Count 460 10^3/uL (150-450); Red Blood Count 4.23 10^6/uL (4.20-5.40); Red Cell Distribution Width 15.5 % (11.0-15.0); White Blood Count 8.3 10^3/uL (4.0-11.0)
[2023-06-04] MEDS: OMEPRAZOLE 40 MG CAPSULE.DR PO (05:30)
[2023-06-04 05:36] LABS: Alanine Aminotransferase 12 U/L (14-59); Albumin Globulin Ratio 0.8; Albumin Level 3.1 g/dL (3.4-5.0); Alkaline Phosphatase 82 U/L (46-116); Anion Gap 12.9; Aspartate Amino Transferase 14 U/L (15-37); BUN Creatinine Ratio 24.4; Bilirubin Total 0.4 mg/dL (0.2-1.0); Calcium 8.9 mg/dL (8.5-10.1); Carbon Dioxide 33.4 mmol/L (21.0-32.0); Chloride 100 mmol/L (98-107); Estimated GFR (African America >60 (>=60); Estimated GFR (Non-African Ame >60 (>=60); Glucose 154 mg/dL (74-106); Potassium 3.3 mmol/L (3.5-5.1); Sodium 143 mmol/L (136-145); Total Protein 7.1 g/dL (6.4-8.2); Troponin I High Sensitivity 12.1 pg/mL (4.0-51.3)
[2023-06-04 05:49] LABS: Digoxin 1.4 ng/mL (0.9-2.0)
[2023-06-04] MEDS: APIXABAN 5 MG TABLET 2.5 MG PO ×2 (08:35→21:07)
[2023-06-04] MEDS: CLOPIDOGREL BISULFATE 75 MG TABLET PO (08:35)
[2023-06-04] MEDS: FUROSEMIDE 40 MG TABLET PO (08:35)
[2023-06-04] MEDS: DOCUSATE SODIUM 100 MG CAPSULE PO ×2 (08:36→21:08)
[2023-06-04] MEDS: SPIRONOLACTONE 25 MG TABLET PO (08:36)
[2023-06-04] MEDS: DIGOXIN 125 MCG TABLET 250 MCG PO (08:36)
[2023-06-04] MEDS: DULOXETINE HCL 60 MG CAPSULE.DR PO (08:36)
[2023-06-04 08:37] LABS: Glucometer 143 mg/dL (74-106)
--- NOTE | 2023-06-04 08:40 | CM.NOTE ---
Rounds made with Dr. Barnhart. Dr. Barnhart explains addition of new medication (Digoxin) to Ms. Merritt and daughter. Both verbalize understanding. No discharge today.
--- NOTE | 2023-06-04 08:42 | P.PN_ITS ---
Progress Note: Subjective Subjective Interval history: T breathing is better to the patient since her heart rate has settled down some. Did not need to get placed on the Cardizem drip, so far the Lanoxin IV has helped Exam Constitutional Vital Signs, click to edit/add: Last Vital Signs Temp 97.8 F 06/04/23 04:47 Pulse 110 H 06/04/23 05:00 Resp 22 06/04/23 04:47 BP 132/81 06/04/23 04:47 Pulse Ox 98 06/04/23 05:00 O2 Del Method Nasal Cannula 06/04/23 04:47 O2 Flow Rate 3 06/04/23 04:47 Documenting provider has reviewed patient's vital signs: yes Common normals: apparent distress (Moderate respiratory distress with moderate conversational dyspnea) Chest Common normals: inspection of chest normal Respiratory Common normals: no retractions; abnormal respiratory effort Effort & inspection: tachypneic and respiratory distress (Mild conversational dyspnea) Auscultation: rales (Basis), rhonchi (Much for her air change from previous day), wheezes (Wheezes on initial exam, better today, just had aerosol treatment) and diminished lung sounds Cardio Common normals: regular rate Rhythm: abnormal rhythm GI Common normals: Normal to inspection, nondistended, normoactive bowel sounds present Progress Note: Objective Labs Labs: Short CBC 06/04/23 Range/Units 04:09 WBC 8.3 (4.0-11.0) 10^3/uL Hgb 12.5 (12.0-16.0) g/dL Hct 40.2 (36.0-48.0) % Plt Count 460 H (150-450) 10^3/uL BMP 06/04/23 04:09 Sodium 143 Potassium 3.3 L Chloride 100 Carbon Dioxide 33.4 H BUN 20.0 H Creatinine 0.82 Glucose 154 H Calcium 8.9 Liver Function 06/04/23 Range/Units 04:09 Total Bilirubin 0.4 (0.2-1.0) mg/dL AST 14 L (15-37) U/L ALT 12 L (14-59) U/L Alkaline Phosphatase 82 (46-116) U/L Albumin 3.1 L (3.4-5.0) g/dL Progress Note: A&P Assessment and Plan (1) Pneumonia: (2) Community acquired pneumonia: (3) HTN (hypertension): Qualifiers: Hypertension type: primary hypertension Qualified Code(s): I10 - Essential (primary) hypertension (4) COPD (chronic obstructive pulmonary disease): Qualifiers: COPD type: COPD with acute exacerbation Qualified Code(s): J44.1 - Chronic obstructive pulmonary disease with (acute) exacerbation (5) Chronic respiratory failure with hypoxia: (6) Oxygen dependent: (7) Atrial fibrillation with RVR: (8) Hyperglycemia: Plan (1) Community acquired pneumonia: Acquired bilateral lower lobe pneumonia-failed outpatient treatment. Also acute exacerbation of her COPD. Steroids, aerosols, try IPV, patient is on her baseline supplemental oxygen of 3 L but still with significant dyspnea. Some improvement overnight. Diuresed some last night. Acute exacerbation of COPD complicated by her acute systolic heart failure (2.5) acute systolic heart failure-cardiology on consult, check on echocardiogram was essentially normal, diuresed yesterday with Bumex drip, will repeat again today. (2) HTN (hypertension): Continue with medications-stable (2.25) Iron deficiency anemia-monitor daily slightly improved (2.5) Steroid-induced hyperglycemia (3) COPD (chronic obstructive pulmonary disease): See above (4) Chronic respiratory failure with hypoxia: O2 dependent for her COPD. 3 L baseline (5) Oxygen dependent: COPD (6) Atrial fibrillation with RVR: With possible acute systolic congestive heart failure. See above Continue maintain inpatient status. Patient here at least 1 more days, but and not guaranteeing that she will be better tomorrow, may need to extend her stay based on clinical presentation
[2023-06-04] MEDS: BUMETANIDE 10 MG in 0.9 % SODIUM CHLORIDE 160 ML 20 MG IV (09:47)
--- NOTE | 2023-06-04 10:28 | SWNOTE1 ---
Nursing reached out and pt needs resources for transportation to and from appointments. MARIOLA printed off transportation list from [facility] and provided to pt. Pt asked if they would take her to [place], MARIOLA let her know MARIOLA is not sure and recommends reaching out. MARIOLA also let pt know some are based on the county you live in, some have fees, and almost all of them needs scheduled a week or so in advance. Pt voiced understanding. MARIOLA also asked pt if she would like speech therapy added to her Home health. She voiced she does not want anyone else in the home. She stated she has only the nurse from . She was supposed to have physical therapy, but something happended. She voiced she is up and down and moving all the time at home. She stated she cooks, cleans, goes up and down stairs, walks out to the garage, etc. At this time pt only wants nursing from home health.
--- NOTE | 2023-06-04 10:42 | SWNOTE1 ---
MARIOLA sent physician notes to [facility], no discharge today.
[2023-06-04] MEDS: POTASSIUM CHLORIDE 10 MEQ ER TABLET 20 MEQ PO ×2 (11:05→21:07)
[2023-06-04 11:16] LABS: Glucometer 152 mg/dL (74-106)
[2023-06-04] MEDS: LEVALBUTEROL HCL 0.63 MG/3 ML VIAL.NEB IH ×3 (11:41→22:18)
[2023-06-04] MEDS: IPRATROPIUM BROMIDE 0.5 MG/2.5 ML VIAL.NEB IH ×3 (11:41→22:18)
[2023-06-04] MEDS: BUDESONIDE 0.5 MG/2 ML AMPULE NEB IH ×2 (11:41→22:18)
--- NOTE | 2023-06-04 12:20 | W.PM.WC ---
Wound Consult Note Assessment and Plan (1) Pneumonia: (2) Community acquired pneumonia: (3) HTN (hypertension): Qualifiers: Hypertension type: primary hypertension Qualified Code(s): I10 - Essential (primary) hypertension (4) COPD (chronic obstructive pulmonary disease): Qualifiers: COPD type: COPD with acute exacerbation Qualified Code(s): J44.1 - Chronic obstructive pulmonary disease with (acute) exacerbation (5) Chronic respiratory failure with hypoxia: (6) Oxygen dependent: (7) Atrial fibrillation with RVR: (8) Hyperglycemia: Plan Consult received for pressure ulcers. Upon assessment of patient's skin, patient has scabbed area to right anterior goode. Right heel is pink,intact and blanches. Left amputation stump is intact. Coccyx and sacral area is pink, blanches quickly. Patient denies pain. No rashes or excoriation noted. Back without rashes, pain or breakdown. Discussed consult with bedside RN. RN did not visualize any concerns with her assessment. Recommend continued inspection of skin every shift to monitor for skin breakdown as patient is at risk due to decreased mobility related to history of amputation. Triad skin barrier as needed if skin becomes excoriated to coccyx/buttocks. Moisturizer of choice if needed to dry, intact skin as needed for dry skin. Will sign off for now. Please feel free to reconsult if needed by calling [facility] [phone]. Grant Harrell, BSN, RN, CWON
--- NOTE | 2023-06-04 13:26 | SWNOTE1 ---
MARIOLA spoke to pt's daughter Millie. She had questions about POA paperwork. She is going to call [facility] as she thinks they may have it on file. She will let SW know. If they do not SW to see if pt would like to complete one. SW did let pt's daughter know that pt does not want speech therapy added to HH. Pt's daughter also let SW know that pt did not let physical therapy in the home as well. MARIOLA did reach out do doctor for PT order. PT order placed by physician.
--- NOTE | 2023-06-04 15:20 | SWNOTE1 ---
OT stopped in and pt is agreeable to therapy with home health. SW went and spoke with patient. Pt is agreeable to have PT/OT come in, no speech.
--- NOTE | 2023-06-04 16:25 | SWNOTE1 ---
packet for HH left in pt's chart in case of discharge over weekend, PT/OT added.
[2023-06-04 16:34] LABS: Glucometer 199 mg/dL (74-106)
[2023-06-04] MEDS: SODIUM CHLORIDE 0.9% INHALATION 3 ML NEB 6 ML IH (17:29)
[2023-06-04] MEDS: OXYCODONE HCL 5 MG TABLET 10 MG PO (19:43)
[2023-06-04] MEDS: TIZANIDINE HCL 4 MG TABLET PO (21:09)
[2023-06-04 21:16] LABS: Glucometer 174 mg/dL (74-106)
[2023-06-04] MEDS: ATORVASTATIN CALCIUM 40 MG TABLET PO (22:45)
--- NOTE | 2023-06-04 23:14 | RESP.RT ---
Patient refused IPV
[2023-06-05] VITALS (21 sets, daily range): BP systolic 104–137; BP diastolic 62–93; PULSE 74–112; RESP 12–18; TEMP 36.2–36.6; O2SAT 94–99
[2023-06-05] MEDS: PIPERACILLIN SODIUM/TAZOBACTAM 3.375 GM in 0.9 % SODIUM CHLORIDE 50 ML IV ×3 (03:00→19:27)
[2023-06-05 05:06] LABS: Basophils Percent Auto 0.1 % (0.2-2.0); Hematocrit 45.3 % (36.0-48.0); Hemoglobin 14.1 g/dL (12.0-16.0); Immature Granulocytes Abs Auto 0.04 10^3/uL (0.00-0.03); Immature Granulocytes Pct Auto 0.4 % (0.0-0.5); Lymphocytes Absolute Auto 0.7 10^3/uL (1.2-3.8); Lymphocytes Percent Auto 7.5 % (20.5-60.0); Mean Corpuscular HGB Conc 31.1 g/dL (29.9-35.2); Mean Corpuscular Hemoglobin 29.6 pg (26.7-34.0); Mean Corpuscular Volume 95.2 fL (81.0-99.0); Mean Platelet Volume 10.3 fL (9.5-13.5); Monocytes Absolute Auto 0.5 10^3/uL (0.3-0.8); Neutrophils Absolute Auto 7.8 10^3/uL (1.4-6.5); Platelet Count 507 10^3/uL (150-450); Red Blood Count 4.76 10^6/uL (4.20-5.40); White Blood Count 8.9 10^3/uL (4.0-11.0)
[2023-06-05 05:26] LABS: Alanine Aminotransferase 17 U/L (14-59); Albumin Globulin Ratio 0.8; Albumin Level 3.4 g/dL (3.4-5.0); Alkaline Phosphatase 87 U/L (46-116); Aspartate Amino Transferase 11 U/L (15-37); BUN Creatinine Ratio 22.9; Bilirubin Total 0.5 mg/dL (0.2-1.0); Calcium 9.1 mg/dL (8.5-10.1); Carbon Dioxide 35.6 mmol/L (21.0-32.0); Chloride 99 mmol/L (98-107); Estimated GFR (African America >60 (>=60); Estimated GFR (Non-African Ame 50 (>=60); Globulin 4.3 g/dL; Glucose 176 mg/dL (74-106); Potassium 3.6 mmol/L (3.5-5.1); Sodium 143 mmol/L (136-145); Total Protein 7.7 g/dL (6.4-8.2)
[2023-06-05] MEDS: IPRATROPIUM BROMIDE 0.5 MG/2.5 ML VIAL.NEB IH ×4 (05:30→22:51)
[2023-06-05] MEDS: LEVALBUTEROL HCL 0.63 MG/3 ML VIAL.NEB IH ×4 (05:30→22:51)
[2023-06-05 05:31] LABS: Digoxin 1.5 ng/mL (0.9-2.0)
[2023-06-05 05:35] LABS: Troponin I High Sensitivity 16.2 pg/mL (4.0-51.3)
[2023-06-05] MEDS: OMEPRAZOLE 40 MG CAPSULE.DR PO (05:50)
[2023-06-05] MEDS: METHYLPREDNISOLONE SOD SUCC PF 125 MG/2 ML VIAL 60 MG IVP (05:50)
[2023-06-05] MEDS: GABAPENTIN 400 MG CAPSULE 800 MG PO ×3 (05:50→21:02)
[2023-06-05] MEDS: INSULIN ASPART 300 UNIT/3 ML PEN SUBQ ×3 (07:34→21:10)
[2023-06-05] MEDS: SPIRONOLACTONE 25 MG TABLET PO (08:37)
[2023-06-05] MEDS: CLOPIDOGREL BISULFATE 75 MG TABLET PO (08:37)
[2023-06-05] MEDS: DIGOXIN 125 MCG TABLET 250 MCG PO (08:37)
[2023-06-05] MEDS: APIXABAN 5 MG TABLET 2.5 MG PO ×2 (08:37→21:02)
[2023-06-05] MEDS: DOCUSATE SODIUM 100 MG CAPSULE PO ×2 (08:37→21:02)
[2023-06-05] MEDS: DULOXETINE HCL 60 MG CAPSULE.DR PO (08:37)
[2023-06-05] MEDS: POTASSIUM CHLORIDE 10 MEQ ER TABLET 20 MEQ PO ×2 (08:37→21:06)
[2023-06-05] MEDS: FUROSEMIDE 40 MG TABLET PO (08:39)
--- NOTE | 2023-06-05 10:05 | XR_ITS ---
The [address] [address] Patient Name: SANCHEZ SAMSON MRN: [id number] date: 1945 Sex: F Assigned Patient Location: ICU Current Patient Location: ICU Accession/Order Number: [id number] Exam Date: 06/05/2023 10:00 Report Date: 06/05/2023 10:22 At the request of: SHAIKH VINNIE Procedure: XR chest 1V PROCEDURE: XR chest 1V DATE: 06/05/2023 9:00 AM [employer] COMPARISONS: 06/01/2023 CLINICAL INDICATION: 78 years Female sob FINDINGS: The cardiomediastinal silhouette and pulmonary vasculature are within normal limits. There is some elevation the right hemidiaphragm is slight right infrahilar atelectasis, stable. Chronic lung changes persists, stable There was significant infiltrate of the right upper lobe on previous images dating back to 04/22/2023. Much of the infiltrate has resolved. An oval opacity measuring 4.8 x 3.0 cm persists in the right suprahilar region, slightly improved from previous exam. This may represent some residual infiltrate. It could represent some loculated fluid. There is no evidence of pleural effusion or pneumothorax. Peripherally calcified implants overlie the chest as before. XR/XR chest 1V IMPRESSION: The chest shows slight improvement from 06/01/2023 as discussed above. No new abnormalities identified. Electronically authenticated by: TRACIE TREVINO Date: 06/05/2023 10:22
[2023-06-05] MEDS: BUDESONIDE 0.5 MG/2 ML AMPULE NEB IH ×2 (10:18→22:51)
[2023-06-05 11:20] LABS: Glucometer 173 mg/dL (74-106)
--- NOTE | 2023-06-05 11:20 | REH.PTDLY ---
Physical Therapy Daily Note PT Daily Note/Assess Start: 06/05/23 11:16 Freq: Status: Active Protocol: Document 06/05/23 10:10 KINGS (Rec: 06/05/23 11:20 KINGS [id number]) Physical Therapy Daily Note/Assessment Time In 09:57 Time Out 10:10 Subjective Pt is agreeable to therapy. No complaints at this time. Pt wearing O2. Therapeutic Exercise Minutes (minutes) 8 Therapeutic Exercise Units 1 Therapeutic Exercise Treatment Supine R LE exs 10x ea with fatigue noted. Exs included SLR, heel slides, AP, QS, and hip abd slides. Seated LAQ and marching performed 10x Therapeutic Activity Minutes (minutes) 4 Therapeutic Activity Units 0 Therapeutic Activity Comments Pt Ind with supine to sit transfers. Pt performs 5 stand pivot transfers from bed to chair SBA with no complaints. Total Therapy Minutes 12 Total Physical Therapy Units 1 Daily Note Summary Pt does well with exs, but fatigues at 10 reps. Meets STG of stand pivot transfers. Work towards progressing reps with legs next visit.
[2023-06-05] MEDS: METOPROLOL SUCCINATE 100 MG TAB.ER.24H PO (11:41)
--- NOTE | 2023-06-05 12:35 | P.IMPN_ITS ---
Progress Note: A&P Assessment and Plan (1) Pneumonia: Assessment and Plan: On Zosyn. Improving clinically and on 3 L O2. CXR also shows improvement. Priscilla growth on sputum cx - will treat with PO fluconazole. Qualifiers: Pneumonia type: aspiration pneumonia Laterality: right Lung location: unspecified part of lung Aspiration pneumonia type: unspecified Qualified Code(s): J69.0 - Pneumonitis due to inhalation of food and vomit (2) HTN (hypertension): Assessment and Plan: Stable. C/w home meds. Qualifiers: Hypertension type: primary hypertension Qualified Code(s): I10 - Essential (primary) hypertension (3) COPD (chronic obstructive pulmonary disease): Assessment and Plan: COPD exacerbation due to Pneumonia, improving. Now back to baseline but still has sig wheezing. C/w steroids, inhaled bronchodialtors. Qualifiers: COPD type: COPD with acute exacerbation Qualified Code(s): J44.1 - Chronic obstructive pulmonary disease with (acute) exacerbation (4) Acute on chronic diastolic (congestive) heart failure: Assessment and Plan: Required IV diuresis. Appears euvolemic today. c/w PO lasix. (5) Acute and chronic respiratory failure with hypoxia: Assessment and Plan: due to PNA, CHF, COPD exacerbation. back to baseline (6) Chronic respiratory failure with hypoxia: Assessment and Plan: Back to 3 L O2 -patients baseline (7) Atrial fibrillation with RVR: Assessment and Plan: Rate poorly controlled. Not sure why she was not on Toprol. Resumed. (8) Alcohol abuse: Assessment and Plan: Sober now and claims she has not been drinking for 2 over 2 months (9) HLD (hyperlipidemia): Assessment and Plan: c/w statin Qualifiers: Hyperlipidemia type: mixed hyperlipidemia Qualified Code(s): E78.2 - Mixed hyperlipidemia (10) PAD (peripheral artery disease): Assessment and Plan: on plavix. (11) Right lower lobe lung mass: Assessment and Plan: improving, clearing, likely infiltrate. Outpatient follow up. Plan HR poorly controlled, Hypoxia improved but still bronchospastic, wheezing and at high risk of worsening clinical status. C/w inpatient monitoring and treatment as outlined above. Internal Medicine - PN: Subj Subjective Interval history: Seen and examined. HR consistently above 100. On baseline O2 requirement. Doing well otherwise. Exam Constitutional Vital Signs, click to edit/add: Last Vital Signs Temp 98 F 06/05/23 07:49 Pulse 109 H 06/05/23 11:00 Resp 16 06/05/23 11:00 BP 112/68 06/05/23 07:49 Pulse Ox 94 L 06/05/23 11:00 O2 Del Method Nasal Cannula 06/05/23 10:20 O2 Flow Rate 3 06/05/23 10:20 Documenting provider has reviewed patient's vital signs: yes Common normals: no apparent distress General appearance: cooperative and comfortable Orientation/consciousness: Yes awake, Yes oriented to person and Yes oriented to place Respiratory Common normals: normal respiratory effort Auscultation: rhonchi and wheezes Other: exp and inspiratory wheezing. Coughing during exam Cardio Common normals: S1 normal heart sound and S2 normal heart sound Rate: tachycardic Rhythm: abnormal rhythm Extremity General: other findings (left AKA) Neuro Common normals: oriented x3, CN's II-XII intact bilaterally, moves all extremities and no focal motor deficits Psych Common normals: mental status grossly normal, thought process normal, denies homicidal ideation and denies suicidal ideation Internal Medicine - PN: Obj Da Labs Labs: Laboratory Results - last 24 hr 06/04/23 06/04/23 06/05/23 16:33 21:11 04:06 WBC 8.9 RBC 4.76 Hgb 14.1 Hct 45.3 MCV 95.2 MCH 29.6 MCHC 31.1 RDW 15.0 Plt Count 507 H MPV 10.3 Neut % (Auto) 87.0 H Lymph % (Auto) 7.5 L [place] % (Auto) 5.0 Eos % (Auto) 0.0 L Baso % (Auto) 0.1 L Neut # (Auto) 7.8 H Lymph # (Auto) 0.7 L [place] # (Auto) 0.5 Eos # (Auto) 0.0 Baso # (Auto) 0.0 Abs Immat Gran (auto) 0.04 H Imm/Tot Granulo (auto) 0.4 Sodium 143 Potassium 3.6 Chloride 99 Carbon Dioxide 35.6 H Anion Gap 12.0 BUN 24.0 H Creatinine 1.05 H Est GFR ( Amer) >60 Est GFR (Non-Af Amer) 50 L BUN/Creatinine Ratio 22.9 Glucose 176 H Calcium 9.1 Total Bilirubin 0.5 AST 11 L ALT 17 Alkaline Phosphatase 87 Troponin I High Sens 16.2 NT-Pro-B Natriuret Pep 2025.0 H* Total Protein 7.7 Albumin 3.4 Globulin 4.3 Albumin/Globulin Ratio 0.8 Digoxin 1.5 POC Glucose 199 H 174 H 06/05/23 11:19 WBC RBC Hgb Hct MCV MCH MCHC RDW Plt Count MPV Neut % (Auto) Lymph % (Auto) [place] % (Auto) Eos % (Auto) Baso % (Auto) Neut # (Auto) Lymph # (Auto) [place] # (Auto) Eos # (Auto) Baso # (Auto) Abs Immat Gran (auto) Imm/Tot Granulo (auto) Sodium Potassium Chloride Carbon Dioxide Anion Gap BUN Creatinine Est GFR ( Amer) Est GFR (Non-Af Amer) BUN/Creatinine Ratio Glucose Calcium Total Bilirubin AST ALT Alkaline Phosphatase Troponin I High Sens NT-Pro-B Natriuret Pep Total Protein Albumin Globulin Albumin/Globulin Ratio Digoxin POC Glucose 173 H
[2023-06-05] MEDS: METHYLPREDNISOLONE SOD SUCC PF 125 MG/2 ML VIAL 40 MG IVP ×2 (14:00→21:10)
[2023-06-05] MEDS: FLUCONAZOLE 40 MG/ML SUSP.RECON 150 MG PO (14:01)
[2023-06-05 16:10] LABS: Glucometer 146 mg/dL (74-106)
[2023-06-05] MEDS: ATORVASTATIN CALCIUM 40 MG TABLET PO (21:02)
[2023-06-05] MEDS: TIZANIDINE HCL 4 MG TABLET PO (21:02)
[2023-06-05] MEDS: OXYCODONE HCL 5 MG TABLET 10 MG PO (21:06)
[2023-06-05] MEDS: LORAZEPAM 0.5 MG TABLET PO (21:06)
[2023-06-05 21:16] LABS: Glucometer 230 mg/dL (74-106)
--- NOTE | 2023-06-05 22:57 | RESP.RT ---
Patient refused IPV
[2023-06-06] VITALS (7 sets, daily range): BP systolic 116–143; BP diastolic 78–89; PULSE 82–97; RESP 12–18; TEMP 36.4; O2SAT 95–98
[2023-06-06] MEDS: PIPERACILLIN SODIUM/TAZOBACTAM 3.375 GM in 0.9 % SODIUM CHLORIDE 50 ML IV (03:08)
[2023-06-06 05:06] LABS: Hematocrit 47.8 % (36.0-48.0); Hemoglobin 14.6 g/dL (12.0-16.0); Immature Granulocytes Abs Auto 0.04 10^3/uL (0.00-0.03); Immature Granulocytes Pct Auto 0.4 % (0.0-0.5); Lymphocytes Absolute Auto 0.9 10^3/uL (1.2-3.8); Lymphocytes Percent Auto 7.8 % (20.5-60.0); Mean Corpuscular HGB Conc 30.5 g/dL (29.9-35.2); Mean Corpuscular Hemoglobin 29.4 pg (26.7-34.0); Mean Corpuscular Volume 96.4 fL (81.0-99.0); Mean Platelet Volume 10.1 fL (9.5-13.5); Monocytes Absolute Auto 0.6 10^3/uL (0.3-0.8); Monocytes Percent Auto 5.1 % (1.7-12.0); Neutrophils Absolute Auto 9.4 10^3/uL (1.4-6.5); Neutrophils Percent Auto 86.7 % (43.0-75.0); Platelet Count 541 10^3/uL (150-450); Red Blood Count 4.96 10^6/uL (4.20-5.40); Red Cell Distribution Width 14.8 % (11.0-15.0); White Blood Count 10.8 10^3/uL (4.0-11.0)
[2023-06-06] MEDS: METHYLPREDNISOLONE SOD SUCC PF 125 MG/2 ML VIAL 40 MG IVP (05:35)
[2023-06-06] MEDS: GABAPENTIN 400 MG CAPSULE 800 MG PO (05:36)
[2023-06-06] MEDS: OMEPRAZOLE 40 MG CAPSULE.DR PO (05:36)
[2023-06-06] MEDS: LEVALBUTEROL HCL 0.63 MG/3 ML VIAL.NEB IH (05:38)
[2023-06-06] MEDS: IPRATROPIUM BROMIDE 0.5 MG/2.5 ML VIAL.NEB IH (05:38)
[2023-06-06 05:51] LABS: Alanine Aminotransferase 14 U/L (14-59); Albumin Globulin Ratio 0.7; Alkaline Phosphatase 80 U/L (46-116); Anion Gap 14.1; Aspartate Amino Transferase 13 U/L (15-37); BUN Creatinine Ratio 28.2; Bilirubin Total 0.4 mg/dL (0.2-1.0); Calcium 9.2 mg/dL (8.5-10.1); Carbon Dioxide 28.9 mmol/L (21.0-32.0); Chloride 102 mmol/L (98-107); Estimated GFR (African America >60 (>=60); Estimated GFR (Non-African Ame >60 (>=60); Globulin 4.2 g/dL; Glucose 125 mg/dL (74-106); Sodium 141 mmol/L (136-145); Total Protein 7.2 g/dL (6.4-8.2)
[2023-06-06 06:31] LABS: Troponin I High Sensitivity 14.2 pg/mL (4.0-51.3)
[2023-06-06] MEDS: SPIRONOLACTONE 25 MG TABLET PO (08:01)
[2023-06-06] MEDS: CLOPIDOGREL BISULFATE 75 MG TABLET PO (08:01)
[2023-06-06] MEDS: DULOXETINE HCL 60 MG CAPSULE.DR PO (08:01)
[2023-06-06] MEDS: FUROSEMIDE 40 MG TABLET PO (08:01)
[2023-06-06] MEDS: METOPROLOL SUCCINATE 100 MG TAB.ER.24H PO (08:01)
[2023-06-06] MEDS: POTASSIUM CHLORIDE 10 MEQ ER TABLET 20 MEQ PO (08:01)
[2023-06-06] MEDS: DOCUSATE SODIUM 100 MG CAPSULE PO (08:01)
[2023-06-06] MEDS: APIXABAN 5 MG TABLET 2.5 MG PO (08:02)
[2023-06-06] MEDS: FLUCONAZOLE 40 MG/ML SUSP.RECON 150 MG PO (08:03)
--- NOTE | 2023-06-06 15:15 | PM.DS1 ---
DS: Providers Provider Date of admission: 06/02/23 18:46 Primary care physician: Nettie Jha MD Consults: 06/02/23 11:30 Consult to Pulmonology Routine Consulting Provider: Tahir Royal Reason for consultation: copd Has provider been notified: No 06/02/23 14:14 Speech Therapy Eval and Treat Routine Reason for consultation: Aspiration (patient admits choking on water) Has provider been notified: Yes 06/02/23 15:12 Modified Barium Swallow Evaluate and Treat Consult Routine Reason for consultation: speech therapy said so 06/04/23 06:39 Consult to Wound Care Routine Consulting Provider: Grant Harrell Reason for consultation: pressure ulcers Has provider been notified: No 06/04/23 08:43 Speech Therapy Eval and Treat Routine Reason for consultation: work with pt on swallowing liquids please :) Has provider been notified: No 06/04/23 13:03 Occupational Therapy Eval and Treat Routine Reason for consultation: if needed for rehab Has provider been notified: No Physical Therapy Eval and Treat Routine Reason for consultation: eval Has provider been notified: No Attending physician on discharge: Shaikh Jordy Discharging clinician: Shaikh Jordy Anticipated date of discharge: 06/06/23 DS: Diagnosis Discharge Diagnosis (1) Pneumonia: Assessment and plan: Sputum cx negative for bacterial growth. Treated with Zosyn. CXR improved. Back to baseline O2. Stable for d/c on PO Augmentin to finish course. Qualifiers: Aspiration pneumonia type: unspecified Laterality: right Lung location: unspecified part of lung Pneumonia type: aspiration pneumonia Qualified Code(s): J69.0 - Pneumonitis due to inhalation of food and vomit (2) HTN (hypertension): Assessment and plan: Stable, c/w home medications. Qualifiers: Hypertension type: primary hypertension Qualified Code(s): I10 - Essential (primary) hypertension (3) COPD (chronic obstructive pulmonary disease): Assessment and plan: Developed COPD exacebation due to PNA, Congestive HF. D/c on PO prednisone taper. Patient to have f/u with Pulm as outpatient. Qualifiers: COPD type: COPD with acute exacerbation Qualified Code(s): J44.1 - Chronic obstructive pulmonary disease with (acute) exacerbation (4) Acute on chronic diastolic (congestive) heart failure: Assessment and plan: Euvolemic. D/c on PO lasix and aldactone. F/u with cardiology. (5) Acute and chronic respiratory failure with hypoxia: Assessment and plan: Jeremiah to baseline O2 Requirement. On 2-3 L O2 (6) Chronic respiratory failure with hypoxia: Assessment and plan: on 3 L O2 via NC due to COPD On baseline now. Outpatient f/u with Pulm (7) Atrial fibrillation with RVR: Assessment and plan: Developed afib with RVR - rate controlled since she was put back on her Toprol. D/c on 100 mg toprol. F/u with cardiology. (8) Alcohol abuse: Assessment and plan: Sober now (9) HLD (hyperlipidemia): Assessment and plan: C/w statin Qualifiers: Hyperlipidemia type: mixed hyperlipidemia Qualified Code(s): E78.2 - Mixed hyperlipidemia (10) PAD (peripheral artery disease): Assessment and plan: C/w plavix, statin (11) Right lower lobe lung mass: Assessment and plan: Improved on subsequent CXR. Outpatient f/u with Pulm DS: Summary Hospital Course Hospital Course: Patient presented to ED for worsening SOB, cough and was admitted for treatment of pneumonia, COPD exacerbation. She later on developed Afib with RVR and acute on chronic diastolic HF presumably from IV hydration, abx and bronchodilators, steroids and was moved to ICU. Patient required IV diuresis but did not need continuous IV infusion to control her HR. She slowly improved clinically and back to her baseline. She was assessed today and was felt to be at her baseline clinical status. Patient received IV zoyn for CAP - will d/c on Augmentin. She will need outpatient f/u with Cardiology and Pulm. Time Spent with Patient Time attestation: Total time spent providing and/or coordinating discharge services: Time spent: greater than 30 minutes Quality: Stroke Symptom Onset Unknown: No Exam Constitutional Vital Signs, click to edit/add: Last Vital Signs Temp 97.6 F 06/06/23 08:00 Pulse 89 06/06/23 09:00 Resp 16 06/06/23 08:00 BP 116/78 06/06/23 08:00 Pulse Ox 95 06/06/23 09:00 O2 Del Method Nasal Cannula 06/06/23 08:00 O2 Flow Rate 2 06/06/23 08:00 Documenting provider has reviewed patient's vital signs: yes Common normals: no apparent distress General appearance: cooperative and comfortable Orientation/consciousness: Yes awake, Yes oriented to person and Yes oriented to place Respiratory Common normals: normal respiratory effort Other: exp and inspiratory wheezing. Coughing during exam Cardio Common normals: S1 normal heart sound and S2 normal heart sound Rhythm: abnormal rhythm Extremity General: other findings (left AKA) Neuro Common normals: oriented x3, CN's II-XII intact bilaterally, moves all extremities and no focal motor deficits Psych Common normals: mental status grossly normal, thought process normal, denies homicidal ideation and denies suicidal ideation DS: Data Data Completed and Pending Labs on day of discharge: Labs from last 24 hours 06/06/23 06/05/23 06/05/23 04:04 21:10 16:08 WBC 10.8 RBC 4.96 Hgb 14.6 Hct 47.8 MCV 96.4 MCH 29.4 MCHC 30.5 RDW 14.8 Plt Count 541 H MPV 10.1 Neut % (Auto) 86.7 H Lymph % (Auto) 7.8 L [place] % (Auto) 5.1 Eos % (Auto) 0.0 L Baso % (Auto) 0.0 L Neut # (Auto) 9.4 H Lymph # (Auto) 0.9 L [place] # (Auto) 0.6 Eos # (Auto) 0.0 Baso # (Auto) 0.0 Abs Immat Gran (auto) 0.04 H Imm/Tot Granulo (auto) 0.4 Sodium 141 Potassium 4.0 Chloride 102 Carbon Dioxide 28.9 Anion Gap 14.1 BUN 20.0 H Creatinine 0.71 Est GFR ( Amer) >60 Est GFR (Non-Af Amer) >60 BUN/Creatinine Ratio 28.2 Glucose 125 H Calcium 9.2 Total Bilirubin 0.4 AST 13 L ALT 14 Alkaline Phosphatase 80 Troponin I High Sens 14.2 NT-Pro-B Natriuret Pep 2661.0 H* Total Protein 7.2 Albumin 3.0 L Globulin 4.2 Albumin/Globulin Ratio 0.7 POC Glucose 230 H 146 H Discharge Plan Discharge Disposition: Home Health Service Condition: Good Discharge Medications: New prednisone 20 mg tablet 20 mg PO DAILY 10 Days Qty: 10 0RF Rx Instructions: 3 tablets x 3 days, 2 tablets x 3 days, 1 tablet x 4 days benzonatate 100 mg capsule 100 mg PO BID PRN (Reason: cough) Qty: 20 0RF levofloxacin 750 mg tablet 750 mg PO Q24H 4 Days Qty: 4 0RF Continued docusate sodium 100 mg capsule 100 mg PO BID duloxetine 60 mg capsule,delayed release(DR/EC) 60 mg PO DAILY gabapentin 800 mg tablet 800 mg PO TID nitroglycerin 0.4 mg tablet, sublingual 0.4 mg sublingual Q5M PRN (Reason: chest pain) oxycodone 10 mg tablet 10 mg PO Q6H PRN (Reason: pain) pantoprazole 40 mg tablet,delayed release (DR/EC) 40 mg PO DAILY budesonide-formoterol [Symbicort] 160-4.5 mcg/actuation HFA aerosol inhaler 2 inh INHALATION Q12H albuterol 90 mcg/actuation aerosol 90 mcg inhalation .q 4 hours PRN (Reason: sob) tizanidine 4 mg tablet 4 mg PO TID PRN (Reason: muscle spasticity) Eliquis 2.5 mg tablet 2.5 mg PO BID atorvastatin 40 mg tablet 40 mg PO .qhs clopidogrel 75 mg tablet 75 mg PO DAILY furosemide 40 mg tablet 40 mg PO DAILY lorazepam 0.5 mg tablet 0.5 mg PO BID PRN (Reason: anxiety) spironolactone 25 mg tablet 25 mg PO DAILY Changed metoprolol succinate 25 mg tablet extended release 24 hr 100 mg PO DAILY Qty: 0 0RF Activity: increase activity as tolerated Diet: advance to your usual diet Patient Instructions: Prednisone (By mouth), Levofloxacin (By mouth), Community Acquired Pneumonia (GEN) Rn Clinical Documentation/[employer] Instructions: [employer] [employer] phone number is [phone] Forms: Portal Instructions Follow Up Appointments: Follow up with PCP in one week Dr Nettie Jha [phone] Follow up with Cardiology in 1-2 weeks [facility] office [phone] Follow up with Pulmonology in 1-[address] Royal [phone] Discharge Date/Time: 06/06/23 11:47
--- NOTE | 2023-06-07 14:34 | CM.DCFOLLOWU ---
Person spoke with: Patricia pt's daughter How are you feeling? She is feeling better How is your pain? No pain Did you understand your discharge instructions? Questions regarding Metoprolol and dosing- questions answered by reading discharge summary note. Encouraged pt's daughter to take all of her pill bottles to her f/u appt to make sure medications and dosing is correct. Daughter also states pharmacist told them pt could not be on Plavix and Eliquis. Encouraged Patricia to call physician office to clarify and take all medications to all f/u appt. Do you have any questions about your discharge instructions? Yes just about medications Were you given any prescriptions at discharge? Yes Were you able to get your prescriptions filled? Yes Do you understand how to take your medications as ordered? Yes but clarified dosing change for Metoprolol Do you have any questions about your follow up appointment and do you plan to keep your follow up appointment? No and pt does plan on going to appt's Is there anything else that you would like to discuss? No Questions/Comments/Concerns/Other:
== END 2023-06-06 11:47 | disposition home health service (06) | DRG 177 ==
LOC: ER 12:20 → MS 06-02 08:34 → ICU 06-03 19:51
PROVIDERS: Family Medicine; Admitting Provider Internal Medicine; Emergency Provider Emergency Medicine; PCP Family Medicine; Visit Provider Internal Medicine
DX: J69.0 Pneumonitis due to inhalation of food and vomit (principal); I50.33 Acute on chronic diastolic (congestive) heart failure; J96.21 Acute and chronic respiratory failure with hypoxia; Z99.81 Dependence on supplemental oxygen; I48.91 Unspecified atrial fibrillation; J43.2 Centrilobular emphysema; R73.9 Hyperglycemia, unspecified; Z87.891 Personal history of nicotine dependence; T38.0X5A Adverse effect of glucocorticoids and synthetic analogues, initial encounter; Z89.612 Acquired absence of left leg above knee; Z87.01 Personal history of pneumonia (recurrent); I11.0 Hypertensive heart disease with heart failure; F10.10 Alcohol abuse, uncomplicated; E78.2 Mixed hyperlipidemia; I73.9 Peripheral vascular disease, unspecified; R91.8 Other nonspecific abnormal finding of lung field; Z79.01 Long term (current) use of anticoagulants; Z79.899 Other long term (current) drug therapy; Z79.02 Long term (current) use of antithrombotics/antiplatelets; D50.9 Iron deficiency anemia, unspecified; Z86.16 Personal history of COVID-19; Z90.710 Acquired absence of both cervix and uterus
CPT/HCPCS: 0202U; 36415; 71045; 74230; 80048; 80053; 80076; 80162; 81003; 82948; 83605; 83880; 84145; 84484; 85025; 87040; 87070; 87106; 87205; 92526; 92610; 92611; 93005; 93308; 94640; 94667; 94668; 94761; 94799; 96365; 96366; 96367; 96368; 96375; 96376; 97110; 97161; 97165; 97530; 99285; G0378; J0456; J0696; J1160; J1940; J2543; J2930

== ENCOUNTER 2023-06-17 15:44 | Outpatient (OUT) | payer MEDICARE, SELFPAY ==
--- NOTE | 2023-06-17 15:51 | XR_ITS ---
The [address] [address] Patient Name: SANCHEZ SAMSON MRN: [id number] date: 1945 Sex: F Assigned Patient Location: [facility] Current Patient Location: Accession/Order Number: [id number] Exam Date: 06/17/2023 16:00 Report Date: 06/18/2023 05:30 At the request of: JOHN LENTZ Procedure: XR chest 2V EXAM: XR chest 2V HISTORY: Pneumonia J18.9 COMPARISON: Chest radiograph dated 06/05/[address] chest dated 04/22/2023. TECHNIQUE: PA and lateral views of the chest performed. FINDINGS: The trachea is unremarkable. Stable mild prominence of the cardiac silhouette. Stable moderate atheromatous calcification at the aortic arch. The lung walters are emphysematous. Stable irregular right upper lobe masslike opacity which extends to the right hilum. There is no pleural effusion or pulmonary vascular congestion. There is no pneumothorax. There are bilateral breast implants with capsular calcification. The bony structures are osteopenic. There are stable intraspinal neural stimulation leads. XR/XR chest 2V IMPRESSION: The lung walters are emphysematous. Stable irregular right upper lobe masslike opacity which extends to the right hilum. Atypical infectious and malignant etiologies should be considered. A repeat CT examination of the chest is recommended. Electronically authenticated by: LUCIO RAYMOND Date: 06/18/2023 05:30
--- OUTSIDE RECORDS SUMMARY | 2023-06-17 15:54 | XMS_ITS | CCD ---
Author Name Unknown Address [address] [place] [address] Organization [facility] Care Team Providers Care Fisher Trammel Net Name Role Phone SELVIN, DR DORA Buenrostro [...] LENTZ, DR JOHN Brown Primary Care Unavailable DEWY ROSE, DR LORENA [employer] Unavailable CLINKER, HEMANT [...] Care Unav ailable Abhijeet, Dr. John Melgoza [facility] Unav ailable Jimmy, Dr. Tracey De La Cruz Attending Unavail able Lyster, Dr. Tracey De La Cruz Referring Unavail able Lyster, Dr. Tracey De La Cruz Attending Unavail able Lyster, Dr. Tracey De La Cruz Referring Unavail able Lentz, Dr. John Melgoza [facility] Unav ailable Delvin, Dr. Son Attending Unavailable Abhijeet, Dr. John Melgoza [facility] Palomav ailJohn Vick Unavailable Margy Olivas Unavailable Margy Olivas Attending Unavailable Margy Olivas Admitting Unavailable John Lentz Primary Care Unavailable John Lentz MD Primary Care Provider ADELAIDA HARGROVE Attending Unavailable JOHN LENTZ Primary Care Unavaila OMKAR Jorgensen Attending Unavailable Allergies Allergy Classification Reported Allergen(s) Allergy Type Date of Onset Reaction(s) Facility (17 sources) Bacitracin; Translations: [BACITRACIN] Drug Allergy 07-19-19 21 Unknown [facility] Repository (2 sources) Neomycin; Translations: [NEOMYCIN] Drug Allergy 07-19-19 21 [facility] Repository (3 sources) Vancomycin; Translations: [VANCOMYCIN] Drug Allergy 01-17-20 15 [facility] Repository (1 source) Polymyxin B Drug allergy (disorder) 07-19-19 21 [facility] Repository (20 sources) Vancomycin; Translations: [vancomycin] Drug Allergy 07-21-19 14 [facility] (20 sources) Aminoglycosides (Antibiotic) Propensity to adverse reactions Unknown [facility] Other (9 sources) Bacitracin Drug Allergy Unknown [facility] Other (20 sources) Neomycin Drug Allergy Unknown [facility] Other (20 sources) Polymyxin B Drug Allergy Unknown [facility] Other (17 sources) Contrast media Propensity to adverse reactions 07-21-19 14 Unknown [facility] Other (17 sources) Erythromycin Drug Allergy Unknown [facility] Other (17 sources) fluticasone / salmeterol Drug Allergy 09-11-19 16 Unknown [facility] Other (16 sources) influenza A virus (H1N1) antigen / influenza A virus (H3N2) antigen / influenza B virus antigen Drug Allergy Comment:Flu Injection [facility] Other (17 sources) traMADol Drug Allergy 10-17-19 15 Unknown [facility] Other (17 sources) Advair Diskus *ANTIASTHMATIC AND BRONCHODILATOR AG Propensity to adverse reactions Unknown [facility] Other (7 sources) patient allergy list reviewed by nurse or physicia Propensity to adverse reactions 09-22-19 18 Comment:Done [facility] Other (17 sources) Dyes Propensity to adverse reactions Comment:CT DYE [facility] Other (7 sources) Allergies Reconciled Propensity to adverse reactions Unknown [facility] Other (17 sources) TraMADol & Dietary Manage Prod *ANALGESICS - OPIOI Propensity to adverse reactions Unknown [facility] Other (17 sources) Vaccine product containing Influenza virus antigen (medicinal product) Drug allergy 03-03-20 17 Unknown [facility] Other (17 sources) Contraindication to Flu Injection Propensity to adverse reactions 08-18-19 Comment:advers e rxn/side effects [facility] Other (1 source) Aminoglycosides (Antibiotic) Drug allergy (disorder) 10-25-19 [facility] Repository (1 source) Vancomycin Drug Allergy 10-25-19 [facility] Repository (1 source) Flucelvax Quadrivalent Drug allergy Comment:Flu Injection [facility] Other (1 source) POLYMYXIN B SULFATE-HC; Translations: [POLYMYXIN B SULFATE-HC] Propensity to adverse reactions to drug (disorder) 08-29-19 [facility] Repository Medications Current Medications Medication Drug Class(es) Dates Sig (Normalized) Sig (Original) [id number] 60 actuat albuterol 0.09 mg/actuat metered dose [...] Apr, Active apixaban 2.5 mg oral tablet (8 sources) Factor Xa Inhibitor take 1 tablet [...] DO Active cephalexin 500 mg oral capsule (9 sources) Cephalosporin Antibacterial take 1 capsule by [...] Active Start: 05-26-2021 take 1 capsule by [facility] twice daily DULoxetine HCl - 30 MG Oral Capsule Delayed Release Particles TAKE 1 CAPSULE TWICE DAILY. Quantity: 0 Refills: 0 Ordered: 26-May-2021 DO Start : 26-May-2021 Active take 1 capsule by [facility] every twenty-four hours Cymbalta 60 MG 1 capsule Orally Once a day for 90 days Active fluconazole 150 mg oral tablet (8 sources) Azole Antifungal Start: 04-29-2023 Fluconazole 150 MG 1 tablet Orally for 10 day(s) Apr, Active 30 actuat fluticasone furoate 0.2 mg/actuat / vilanterol 0.025 mg/actuat dry powder inhaler (2 sources) Corticosteroid, beta2-Adrenergic Agonist take 1 puff(s) by inhalation once daily Breo Ellipta 200-25 MCG/ACT 1 puff Inhalation Once a day for 30 days Active furosemide 40 mg oral tablet (8 sources) Loop Diuretic take 1 tablet by [...] 08/08/2021 Active LORazepam 0.5 mg oral tablet (9 sources) Benzodiazepine Start: 04-27-2023 take 1 tablet by mouth twice daily as needed Ativan 0.5 MG 1 tab Orally bid prn for 30 days Apr, Active 24 hr metoprolol succinate 25 mg extended release oral tablet (8 sources) beta-Adrenergic Kodi take 1 tablet by [...] Orally Active mupirocin 0.02 mg/mg topical ointment (9 sources) RNA Synthetase Inhibitor Antibacterial Mupirocin 2 [...] 0 Active nystatin 100 unt/mg topical powder (17 sources) Polyene Antifungal Nystatin 1000 00 UNIT/GM [...] Start: 12-29-2022 take 1 tablet by [facility] th every [...] & 10 x 100mg tablet therapy pack (11 sources) Paxlovid (300/10 0) 20 x 150 MG & 10 x 100MG as directed Orally for 5 days tell pt to hold plavix on paxlovid - thanks Active predniSONE 20 mg oral tablet (15 sources) Start: 3 take 2 tablets by mouth every twenty-four hours predniSONE 20 MG 2 tablets Orally Once a day for 5 days tell pt to hold plavix on paxlovid - thanks Feb, Active Start: 06-01-2022 take 2 tablets by [facility] every twenty-four hours predniSONE [...] DO Active tiZANidine 4 mg oral tablet (20 sources) Central alpha-2 Adrenergic Agonist take 1 [...] disease (20 sources) Atherosclerotic heart disease of [place] coronary artery without angina pectoris; Translations: [Coronary arteriosclerosis] Onset: 08-25-2018 03-01-2023 Chronic Coronary atherosclerosis and other heart disease (10 sources) Stented coronary artery; Translations: [Percutaneous transluminal coronary angioplasty status] Onset: 02-26-2023 03-01-2023 Episodic Coronary atherosclerosis and other heart disease (1 source) Coronary atherosclerosis and other heart disease; Translations: [Atherosclerosis of [place] arteries of extremities with intermittent claudication, right [...] Chronic Other aftercare (1 source) Other termite renewal inspector (current) drug therapy; Translations: [OTH ASSISTED CURRENT DRUG THERAPY] Onset: 11-06-2020 Episodic Other aftercare (7 sources) Long-term current use of inhaled steroid; Translations: [intermediate (current) use of inhaled steroids] Episodic Other aftercare (7 sources) Long-term current use of anticoagulant; Translations: [termite renewal inspector (current) use of anticoagulants] Episodic Other bone [...] Onset: 12-17-2016 Episodic Other aftercare (1 source) intermediate (current) use of anticoagulants; Translations: [ASSISTED CURRNT USE ANTICOAGULANTS] Onset: 07-05-2020 Episodic Other [...] Range Facility Office Visiton 04-12-2023 Follow-up visit [id number] Sanchez Merritt 1945 F Date Provider Department Center 04/12/2023 Gayathri-OMKAR VICTOR [facility] No family history on file Level of Service:50687 DC OFFICE/OUTPATIENT ESTABLISHED MOD MDM 30 MIN Normal [facility] US UNI ankle/arm indiceson 0 12-17-2022 US UNI ankle/arm indices [place] [address] Ultrasound Report Signed Patient: Sanchez Merritt MR#: [id number] : 1945 Acct:[id number] Age/Sex: 77 / F ADM Date: 11/17/22 Loc: [facility] Room: Type: [facility] Attending Dr: Margy Olivas SAFETY MANAGER-C Ordering Provider: Margy Olivas APRN Date of [...] Lauro Heard MD12/17/2022 2:11 PM Dictation Location: [place] [address] Tech: Julia Bautista Transcribed By: BILLIE 12/17/22 1411 Dictated By: Lauro Heard MD 12/17/22 1410 Signed By: 12/17/22 1411 [facility] VAS LAB Carotid Artery Dupl ex Ultrasounon 04-13-2022 VAS LAB Carotid Artery Duplex Ultrasoun [address], [address] [place] [address] Vascular Lab Report Carotid Artery Duplex Ultrasound Patient Name: SANCHEZ Melara Physician: [id number] Ludwig South [facility] Study Date: 04/13/2022 Referring ADELAIDA HARGROVE Physician: MRN/PID: [id number] PCP: John Lentz Accession/Order#: [id number] CC Report to: Cooper Arnold Date of : 1945 Technologist: Jillian Gonzalez RDCS, T Gender: F Technologist 2: Admission Status: Outpatient Location Performed: [facility] Diagnosis/ICD: R09.89-Other specified symptoms and signs involving the circulatory and respiratory systems Indication: CAD, Right CEA, Peripheral Vascular Disease, 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, HTN, Hyperlipidemia, Former Smoker, Ischemic Cardiomyopathy, COPD, PTCA-07/2018 Procedure/CPT: 02908 Cerebrovascular Carotid Duplex scan complete-[id number] CONCLUSIONS: Right Carotid: Findings are consistent with [...] cm/s Right Left ICA/CCA Ratio 0.5 0.8 [id number] Ludwig South MD, FACC Final Normal [facility] VASC LAB Carotid Artery Dupl ex Ultrasoundon 04-13-2022 US.doppler Carotid arteries [facility] 250 DO Work Phone: Height or Weight NOT Doneon 02-26-2022 Fall risk assessment a) No falls within the last year [facility] 250 DO Work Phone: Tobacco use status CPHS b) No [facility] 250 DO Work Phone: Office Visit (Cardiology)on [...] main with drug-eluting stent angioplasty and stenting dr (more content not included)... Normal [facility] CARDIAC STRESS/REST INJE CTIONon 08-19-2021 [facility] CARDIAC STRESS/REST INJECTION Patient Name: SANCHEZ MERRITT STUDY: MYOCARDIAL PERFUSION STRESS TEST WITH LEXISCAN Performing facility: [facility], [address] [place] [address], [address], [address] Provider: Tracey Pitt DO, [facility] PCP: Dr. Young Lentz Supervising provider: Ludwig South MD, [facility] INDICATION: CAD; ICM SOB; HISTORY: Gender: F; Age: 76 y/o ; Height: 160.02 cm; Weight: 58.652686 kg. High Cholesterol; CAD; SOB; COPD; Quit smoking 12 years ago. Cardiac catheterization on 2018. PTCA on 2018. COMPARISON: No comparison. ACCESSION NUMBER(S): [id number]; [id number]; [id number] ORDERING CLINICIAN: TRACEY PITT TECHNIQUE: ONE DAY [...] Electronically signed by: GHULAM RIVERA MD Normal [facility] No Panel Informationon 08-19 Normal -[facility] 250 DO Work Phone: Office Visit (Cardiology)on [...] Status:Hold For - Scheduling,Retrospecti ve Authorization; Requested for:[id number]; Radiologist to Determine Optimal Study : Y What are the patient's signs and symptoms? 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 Respiratory: (more content not included)... Normal [facility] Tobacco Screening.on 022 Adult depression screening assessment [facility] Work Phone: Fall risk assessment a) No falls within the last year [facility] 250 DO Work Phone: Tobacco use status CP b) No [facility] 250 DO Work Phone: Tobacco Screening. 2-More than half the days [facility] 250 DO Work Phone: Tobacco Screening. 1-Several days [facility] 250 DO Work Phone: Tobacco Screening. 0-Not at all [facility] 250 DO Work Phone: Tobacco Screening. 3-Nearly every day [facility] 250 DO Work Phone: Tobacco Screening. Somewhat Difficult [facility] 250 DO Work Phone: CNOVmarv 05-23-2021 CNOV Office Visit (PAINCC ) SANCHEZ MERRITT ([id number]) 1945 F Date Time Provider Department 05/23/21 [...] interventional pain procedures: Seen pain management in [facility] Did an injection with no relief [...] and negative other than HPI. Scribe attestation: I, Emmabelén Roca LPN (May 23, 2021 10:13 AM) attest [...] radicular pain. (more content not included)... Normal [facility] CNPNon 05-23-2021 CNPN Telephone ([facility]) SANCHEZ MERRITT ([id number]) 1945 F Date Time Provider Department 05/23/21 [...] know once she speaks with her doctor. Shaynn Lew RN 05/28/2021 10:17 AM Signed Daughter calling back with update. States she spoke with neurologist and he is agreeable to cutting her Cymbalta down to 30 mg. She will proceed with filling Amitriptyline as ordered. She is also asking for an order for a tens unit be called to [facility] in [place]. States it was discussed at last OV. Please advise. Cleopatra King LPN 05/28/2021 11:50 AM Signed Called the patient and advised that normally Lien Hughes LPN 05/28/2021 12:02 PM Signed Tens unit was sent to [facility]. Cleopatra King LPN 05/28/2021 1:25 PM Signed Patient was notified that order was sent to [facility] and they would contact her. Allergies [...] Status:Closed by CLEOPATRA KING on 05/28/21 Normal [facility] Covid-19 PCR (CVDTBH)on 06-0 SARS-CoV-2 (COVID-19) RNA MEENAKSHI+probe Ql (Unsp spec) Not detected Normal NOT DETECTED [facility] Comment on above: Result Comment: This test is not yet approved or cleared by the [place] FDA. When there are no FDA-approved or cleared tests available, and other criteria are met, FDA can make tests available under an emergency access mechanism called an Emergency Use Authorization (EUA). The EUA for this test is supported by the [place] of Health and Human Service's (HHS's) declaration [...] SARS-CoV-2. Performed By: #### C [facility] ####[facility] [id number] [place] [address] Aggie XR LSPINE W_OBLS AND FLEX_EX Ton [...] LORENA LATIF Date: 2020-07-02 15:09 Normal [facility] CT CHEST HI RESOLUTIONon CT CHEST [...] by: JOSIE PARIS Date: 2020-06-18 14:59 Normal [facility] XR CHEST 2 Von 02-29-2020 XR CHEST [...] by: JOSIE PARIS Date: 2020-02-29 09:04 Normal [facility] Vital Signs Date Time Vital Sign Value Performing Clinician Facility 04-29-2023 13:00-0500 Body height 156.21 cm John Lentz Other [facility] Other 04-29-2023 13:00-0500 Body mass index (BMI) [Ratio] 24.16 kg/m2 John Lentz Other [facility] Other 04-29-2023 13:00-0500 Body weight 58.97 kg John Diaz [facility] Other 04-29-2023 13:00-0500 Diastolic blood pressure 76 mm[Hg] John Lentz Other [facility] Other 04-29-2023 13:00-0500 SaO2% (BldA) [Mass fraction] 86 % John Lentz Other [facility] Other 04-29-2023 13:00-0500 Systolic blood pressure 109 mm[Hg] John Lentz Other [facility] Other 04-15-2023 15:45-0500 Body height 156.21 cm John Lentz Other [facility] Other 04-15-2023 15:45-0500 Body mass index (BMI) [Ratio] 24.16 kg/m2 John Lentz Other [facility] Other 04-15-2023 15:45-0500 Body weight 58.97 kg John Lentz Other [facility] Other 04-15-2023 15:45-0500 Diastolic blood pressure 72 mm[Hg] John Lentz Other [facility] Other 04-15-2023 15:45-0500 SaO2% (BldA) [Mass fraction] 95 % John Lentz Other [facility] Other 04-15-2023 15:45-0500 Systolic blood pressure 103 mm[Hg] John Lentz Other [facility] Other 03-01-2023 14:00-0500 Diastolic blood pressure 68 mm[Hg] Adelaida Hargrove MD Work Phone: [facility] 03-01-2023 14:00-0500 Heart rate 68 /min Adelaida Hargrove MD Work Phone: [facility] 03-01-2023 14:00-0500 Systolic blood pressure 110 mm[Hg] Adelaida Hargrove MD Work Phone: [facility] 10-20-2022 13:15-0400 Body height 156.21 cm Margy Carpenteremiliano Other [facility] Other 10-20-2022 13:15-0400 Body mass index (BMI) [Ratio] 24.16 kg/m2 Margy Carpenteremiliano Other [facility] Other 10-20-2022 13:15-0400 Body temperature 96.9 [degF] Margy Carpenteremiliano Other [facility] Other 10-20-2022 13:15-0400 Body weight 58.97 kg Margy Carpenteremiliano Other [facility] Other 10-20-2022 13:15-0400 Diastolic blood pressure 60 mm[Hg] Margy Carpenteremiliano Other [facility] Other 10-20-2022 13:15-0400 SaO2% (BldA) [Mass fraction] 93 % Margy Carpenteremiliano Other [facility] Other 10-20-2022 13:15-0400 Systolic blood pressure 110 mm[Hg] Margy Deisy Other [facility] Other 09-22-2022 10:00-0400 Body height 156.21 cm John Lentz Other [facility] Other 09-22-2022 10:00-0400 Body mass index (BMI) [Ratio] 24.16 kg/m2 John Lentz Other [facility] Other 09-22-2022 10:00-0400 Body weight 58.97 kg John Lentz Other [facility] Other 09-22-2022 10:00-0400 Diastolic blood pressure 68 mm[Hg] John Lentz Other [facility] Other 09-22-2022 10:00-0400 Systolic blood pressure 117 mm[Hg] John Lentz Other [facility] Other 06-01-2022 11:15-0500 Body height 156.21 cm John Lentz Other [facility] Other 06-01-2022 11:15-0500 Body mass index (BMI) [Ratio] 24.16 kg/m2 John Lentz Other [facility] Other 06-01-2022 11:15-0500 Body weight 58.97 kg John Lentz Other [facility] Other 06-01-2022 11:15-0500 Diastolic blood pressure 60 mm[Hg] John Lentz Other [facility] Other 06-01-2022 11:15-0500 SaO2% (BldA) [Mass fraction] 92 % John Lentz Other [facility] Other 06-01-2022 11:15-0500 Systolic blood pressure 102 mm[Hg] John Lentz Other [facility] Other 02-26-2022 15:00-0400 Body height 160.02 cm John Lentz Work Phone: [facility] 250 DO Work Phone: 02-26-2022 15:00-0400 Body mass index (BMI) [Ratio] Medical Reason Not Done John Lentz Work Phone: [facility] 250 DO Work Phone: 02-26-2022 15:00-0400 Diastolic blood pressure 60 mm[Hg] John Lentz Work Phone: [facility] 250 DO Work Phone: 02-26-2022 15:00-0400 Heart rate 80 /min John Lentz Work Phone: [facility] 250 DO Work Phone: 02-26-2022 15:00-0400 Systolic blood pressure 122 mm[Hg] John Lentz Work Phone: [facility] 250 DO Work Phone: 08-19-2021 12:00-0400 72 1 John Lentz Work Phone: [facility] 250 DO Work Phone: Comment on above: [id number] 08-07-2021 14:55-0400 Body height 160.02 cm John Lentz Work Phone: [facility] 250 DO Work Phone: 08-07-2021 14:55-0400 Diastolic blood pressure 68 mm[Hg] John Lentz Work Phone: [facility] 250 DO Work Phone: 08-07-2021 14:55-0400 Heart rate 89 /min John Lentz Work Phone: [facility] 250 DO Work Phone: 08-07-2021 14:55-0400 Systolic blood pressure 114 mm[Hg] John Lentz Work Phone: [facility] 250 DO Work Phone: 08-07-2021 14:55-0400 10 1 John Lentz Work Phone: [facility] 250 DO Work Phone: Comment on above: PHQ-9 TS Encounters Encounter Date Encounter Type Care Provider Facility Start: 06-07-2023 End: 06-07-2023 ambulatory John Lentz Other [facility] Other Start: 06-07-2023 Telephone encounter John Lentz [facility] Start: 05-17-2023 End: 05-17-2023 ambulatory John Lentz Other [facility] Other Start: 05-17-2023 Telephone encounter John Lentz [facility] Start: 04-30-2023 End: 04-30-2023 ambulatory John Lentz Other [facility] Other Start: 04-30-2023 Telephone encounter John Lentz [facility] Start: 04-29-2023 End: 04-29-2023 ambulatory John Lentz Other [facility] Other Start: 04-29-2023 Office outpatient vi sit 25 minutes John Abhijeet [facility] Start: 04-29-2023 Telephone encounter John Lentz [facility] Start: 04-27-2023 End: 04-27-2023 ambulatory John Lentz Other [facility] Other Start: 04-27-2023 Telephone encounter John Lentz [facility] Start: 04-15-2023 End: 04-15-2023 ambulatory John Lentz Other [facility] Other Start: 04-15-2023 Office outpatient vi sit 25 minutes John Abhijeet [facility] Start: 04-14-2023 End: 04-14-2023 ambulatory John Abhijeet Other [facility] Other Start: 04-14-2023 Telephone encounter John Lentz [facility] Start: 04-12-2023 End: 04-12-2023 ambulatory [facility] Start: 04-02-2023 End: 04-02-2023 ambulatory John Abhijeet Other [facility] Other Start: 04-02-2023 Telephone encounter John Abhijeet [facility] Start: 03-23-2023 (Televisit) Televisit John Abhijeet [facility] Start: 03-23-2023 End: 03-23-2023 ambulatory John Abhijeet Other [facility] Other Start: 03-22-2023 End: 03-22-2023 ambulatory John Abhijeet Other [facility] Other Start: 03-22-2023 Telephone encounter John Lentz [facility] Start: 03-01-2023 End: 03-01-2023 ambulatory [facility] Ambulatory Start: 03-01-2023 End: 03-01-2023 Office outpatient visit 25 minutes Adelaida Hargrove MD Work Phone: [facility] Comment on above: Arteriosclerosis of coronary artery (Primary Dx); Bilateral carotid bruits; Hyperlipidemia, unspecified hyperlipidemia type; Ischemic cardiomyopathy; Primary hypertension; Stented coronary artery; Chronic obstructive pulmonary disease, unspecified COPD type (CMS/HCC); Wheelchair dependent; Amputation of leg (CMS/HCC); History of right-sided carotid endarterectomy Start: 01-27-2023 End: 01-27-2023 ambulatory John Lentz Other [facility] Other Start: 01-27-2023 Telephone encounter John Abihjeet [facility] Start: 01-25-2023 End: 01-25-2023 ambulatory John Lentz Other [facility] Other Start: 01-25-2023 Telephone encounter John Abhijeet [facility] Start: 01-08-2023 End: 01-08-2023 ambulatory John Lentz Other [facility] Other Start: 01-08-2023 Telephone encounter John Abhijeet [facility] Start: 12-02-2022 End: 12-02-2022 ambulatory John Lentz Other [facility] Other Start: 12-02-2022 Telephone encounter John Abhijeet [facility] Start: 11-17-2022 End: 11-17-2022 ambulatory Margy Lopez Geraldmaral Facility:[facility] Start: 10-20-2022 End: 10-20-2022 ambulatory Margy Geraldmaral Other [facility] Other Start: 10-20-2022 FQHC visit new patient Margy Duarte maral [facility] Vascular Surgery Start: 09-23-2022 End: 09-23-2022 ambulatory John Lentz Other [facility] Other Start: 09-23-2022 Telephone encounter John Abhijeet [facility] Start: 09-22-2022 End: 09-22-2022 ambulatory John Lentz Other [facility] Other Start: 09-22-2022 Office outpatient vi sit 25 minutes John Lentz [facility] Start: 09-22-2022 Telephone encounter John Lentz [facility] Ur[facility] Alfredo Start: 08-13-2022 Rx Renewal John Lentz Work Phone: [facility] 250 DO Work Phone: Start: 07-15-2022 End: 07-15-2022 ambulatory John Lentz Other [facility] Other Start: 07-15-2022 Telephone encounter John Abhijeet [facility] Start: 06-01-2022 End: 06-01-2022 ambulatory John Abhijeet Other [employer] Other Start: 06-01-2022 Office outpatient vi sit 25 minutes John Abhijeet [facility] Start: 05-05-2022 End: 05-05-2022 ambulatory John Abhijeet Other [employer] Other Start: 05-05-2022 Telephone encounter John Abhijeet [facility] Start: 04-17-2022 Chart Update John Lentz Work Phone: [facility] 250 DO Work Phone: Start: 04-13-[address] Adelaida Griggs ty:[id number] Start: 02-26-2022 Office outpatient vi sit 25 minutes John Lentz Work Phone: [facility] 250 DO Work Phone: Start: 02-26-[address] Adelaida Griggs ty:[id number] Start: 12-12-2021 Pre-procedure evalua tion check John Abhijeet Other [employer] Other Start: 09-11-2021 Rx Renewal John Lentz Work Phone: [facility] 250 DO Work Phone: Start: 09-08-2021 Rx Renewal John Brown Abhijeet Work Phone: [facility] 250 DO Work Phone: Start: 09-01-2021 Chart Update John Kevin Lentz Work Phone: [facility] 250 DO Work Phone: Start: 08-19-[address] Tracey Pitt Facility:[id number] Start: 08-07-2021 Office outpatient vi sit 25 minutes John Lentz Work Phone: [facility] 250 DO Work Phone: Start: 08-07-[address] John Lentz Facility: Start: 07-21-2021 Rx Renewal John Lentz Work Phone: [facility] 250 DO Work Phone: Start: 01-14-[address] DORA BELLA Facili ty:H1 Start: 12-09-2020 End: 12-10-[address] JOHN LENTZ Facility:H1 Start: 11-28-2020 End: 11-28-[address] JOHN LENTZ Facility:H1 Start: 10-29-2020 End: 10-30-[address] DORA BELLA Facility:H1 Start: 10-24-2020 End: 10-24-[address] JOHN LENTZ Facility:H1 Start: 10-15-2020 End: 10-16-[address] DORA BELLA Facility:H1 Start: 10-04-2020 Encounter for preprocedural laboratory examination DR DORA BELLA [facility] Start: 10-01-2020 End: 10-01-[address] DORA [...] DTaP/Tdap/Td Vaccines (2 - Td or Tdap) [facility] Start: 11-08-2023 End: 11-08-2023 Patient encounter procedure 11/08/2023 1:15 PM EDT Office Visit [facility] [address] [facility] [address] [place] [address] Adelaida Hargrove MD [address] [place] [address] [address] [place] [address] [facility] Start: 03-01-2023 FUV, Provider: Adelaida Hargrove, Status: Pen, Time: 2:00 PM FUV, Provider: Adelaida Hargrove, Status: Pen, Time: 2:00 PM [facility] 250 DO Work Phone: Start: 03-01-2023 End: 03-01-2024 Comprehensive metabolic 2000 panel - Serum or Plasma Comprehensive Metabolic Panel Lab Routine Arteriosclerosis of coronary artery Primary hypertension Stented coronary artery Expected: 03/01/2023 (Approximate), Expires: 03/01/2024 [facility] Service Area Work Phone: Comment on above: Expected: 03/01/2023 (Approximate), Expires: 03/01/2024 Start: 03-01-2023 End: 03-01-2024 Lipid 1996 panel - Serum or Plasma Lipid Panel Lab Routine Hyperlipidemia, unspecified hyperlipidemia type Expected: 03/01/2023 (Approximate), Expires: 03/01/2024 [facility] Work Phone: Comment on above: Expected: 03/01/2023 (Approximate), Expires: 03/01/2024 Start: 12-25-2022 Influenza vaccination Influenza Vacc ine (#1) [facility] Start: 04-13-2022 CAROTID, Provider: B[facility] ULTRASOUND 01,[id number], Status: Pen, Time: 10:45 AM CAROTID, Provider: [facility] ULTRASOUND 01,[id number], Status: Pen, Time: 10:45 AM [facility] Work Phone: Start: 04-13-2022 ECHO, Provider: [facility] ULTRASOUND 01,[id number], Status: Pen, Time: 10:45 AM ECHO, Provider: [facility] ULTRASOUND 01,[id number], Status: Pen, Time: 10:45 AM [facility] 250 DO Work Phone: Start: 01-29-2022 FUV, Provider: Adelaida Hargrove, Status: Pen, Time: 1:00 PM FUV, Provider: Adelaida Hargrove, Status: Pen, Time: 1:00 PM [facility] 250 DO Work Phone: Start: 08-19-2021 STRESS NUC, Provider : BINH THOMASI NUCLEAR 01,[id number], Status: Pen, Time: 12:00 PM STRESS NUC, Provider: [facility] NUCLEAR 01,[id number], Status: Pen, Time: 12:00 PM [facility] 250 DO Work Phone: Start: 08-07-2021 FUV, Provider: Tracey Pitt, Status: Pen, Time: 2:45 PM FUV, Provider: Tracey Pitt, Status: Pen, Time: 2:45 PM [facility] 250 DO Work Phone: Start: 06-08-2021 COVID-19 Vaccine (4 - Moderna series) COVID-19 Vaccine (4 - Moderna series) [facility] Start: 11-24-2018 Pneumococcal Vaccine : 65+ Years (2 - PPSV23 or PCV20) Pneumococcal Vaccine: 65+ Years (2 - PPSV23 or PCV20) [facility] Start: 1993 Zoster Vaccines (1 o f 2) Zoster Vaccines (1 of 2) [facility] Start: 1961 Diabetes mellitus screening Diabetes Screening [facility] Start: 1961 Hepatitis C screening Hepatitis C [facility] Start: 1943 Lipid panel Lipid Panel [facility] Start: 1943 Medicare Annual Wellness Visit Medicare Annual Wellness Visit (AWV) [facility] Start: 1943 Screening for osteoporosis Bone Density Scan [facility] Immunizations Immunization Date Immunization Notes Care Provider Emmanuel kaba 04-13-2021 Pfizer-BioNTech COVID-19 Vacc 30 MCG/0.3ML Intramuscular Suspension John E Lentz Work Phone: [facility] 250 DO Work Phone: 07-02-2020 Moderna COVID-19 Vaccine 100 MCG/0.5ML Intramuscular Suspension John E Lentz Work Phone: [facility] 250 DO Work Phone: 06-03-2020 Moderna COVID-19 Vaccine 100 MCG/0.5ML Intramuscular Suspension John E Lentz Work Phone: [facility] 250 DO Work Phone: 09-29-2018 pneumococcal conjuga te vaccine, 13 valent John Lentz Work Phone: [place] [address] DO Work Phone: 08-16-2018 tetanus toxoid, redu luis diphtheria toxoid, and acellular pertussis vaccine, adsorbed Adelaida Hargrove MD Work Phone: [facility] Work Phone: 02-16-2017 influenza virus vaccine, split virus (incl. purified surface antigen) John Lentz Other [employer] [facility] [employer] Other 02-16-2017 influenza, high dose seasonal, preservative-free John Lentz Work Phone: [place] [address] DO Work Phone: 02-16-2017 influenza virus vaccine, unspecified formulation Adelaida Hargrove MD Work Phone: [facility] Work Phone: 01-24-2017 influenza virus vaccine, unspecified formulation John Lentz Work Phone: [place] [address] DO Work Phone: 01-25-2016 influenza virus vaccine, split virus (incl. purified surface antigen) John Lentz Other [employer] [facility] [employer] Other 01-25-2016 influenza, high dose seasonal, preservative-free John Lentz Work Phone: [place] [address] DO Work Phone: 03-02-2015 influenza, injectabl e, quadrivalent, preservative free John Lentz Work Phone: [place] [address] DO Work Phone: 03-02-2015 tetanus and diphther ia toxoids, adsorbed, preservative free, for adult use (5 Lf of tetanus toxoid and 2 Lf of diphtheria toxoid) John Lentz Other [employer] Other 02-12-2009 pneumococcal conjuga te vaccine, 7 valent John Brown Abhijeet Work Phone: [facility] 250 DO Work Phone: 01-30-2009 influenza virus vaccine, whole virus John Lentz Work Phone: -[facility] 250 DO Work Phone: Payers Date Payer Category Payer Unknown [id number] 2016 Unknown 2016 Unknown [id number] 2008 Medicare MEDICARE MEDICAR E PART A AND B [id number] 2008-Present [address] [place] [address] [id number] 1959 Medicare [id number] 1959 Self-pay 1959 Unknown [id number] 1943 Unknown [id number] [id number] 1943 Unknown [id number] 2.16.840.1.495859.3.579.2.593 1943 Unknown [id number] 2.16.840.1.281256.3.579.2.593 1943 Unknown [id number] 2.16.840.1.460875.3.579.2.593 1943 Unknown [id number] 2.16.840.1.174674.3.579.2.593 1943 Unknown [id number] 2.16.840.1.811431.3.579.2.593 1943 Unknown [id number] 2.16.840.1.945040.3.579.2.593 1943 Unknown [id number] 2.16.840.1.284524.3.579.2.593 1943 Unknown [id number] 2.16.840.1.291596.3.579.2.593 1943 Unknown [id number] 2.16.840.1.111043.3.579.2.593 1943 Unknown [id number] 2.16.840.1.756048.3.579.2.593 1943 Unknown [id number] 2.16.840.1.272764.3.579.2.593 1943 Unknown [id number] 2.16.840.1.041091.3.579.2.593 1943 Unknown [id number] 2.16.840.1.495161.3.579.2.593 1943 Unknown [id number] 2.16.840.1.651648.3.579.2.356 1943 Unknown [id number] 2.16.840.1.176701.3.579.2.356 1943 Unknown [id number] 2.16.840.1.703939.3.579.2.1068 1943 Unknown [id number] 2.16.840.1.779403.3.579.2.1068 1943 Unknown [id number] 2.16.840.1.461313.3.579.2.1244 Unknown [id number] 2.16.840.1.398819.3.579.2.593 Unknown [id number] 2.16.840.1.743103.3.579.2.593 Unknown [id number] 2.16.840.1.833954.3.579.2.531 Social History Date Type Detail Facility Start: 08-07-2021 End: 03-01-2023 Daily caffeine consumption, 2-3 servings a day Daily caffeine consumption, 2-3 servings a day [facility] Comment on above: Quit cigs 2009; 1 cup of coffee harshil y; Start: 08-07-2021 End: 03-01-2023 Sex Assigned At [facility] Start: 03-01-2023 Tobacco smoking stat us NHIS Ex-smoker [facility] End: 04-26-2009 History of tobacco use Current smoker [facility] Work Phone: End: 04-26-2009 History of tobacco use Cigarette Smoker [facility] Work Phone: Start: 03-01-2023 Tobacco use and exposure Smokeless tobacco non-user [facility] Work Phone: Start: 03-01-2023 Alcohol intake Lifetime non-d annemarie (finding) [facility] Work Phone: Start: 1945 [facility] Start: 02-19-2023 End: 03-01-2023 Exposure to SARS-CoV-2 (event) Not sure [facility] Functional Status Date Assessment Result Facility 08-07-2021 PHQ-9 [id number] Moderate (10-14) [facility] 250 DO Work Phone: Clinical Notes 07-25-2018 to 06-07-2023 Note Date & Type Note Facility 06-07-2023 Evaluation note Encounter Date Diagnosis Assessment Notes May, COPD, moderate (ICD-10 - J44.9) [employer] Other 01-22-2024 Evaluation note* Encounter Date Diagnosis Assessment Notes Treatment Notes Treatment Clinical Notes Apr, Chronic obstructive pulmonary disease, unspecified COPD type (ICD-10 - J44.9) [employer] Other 01-05-2024 Evaluation note* Encounter Date Diagnosis Assessment Notes Treatment Notes Treatment Clinical Notes Apr, Chronic obstructive pulmonary disease, unspecified COPD type (ICD-10 - J44.9) [employer] Other 01-04-2024 Evaluation note* Encounter Date Diagnosis Assessment Notes Treatment Notes Treatment Clinical Notes Apr, Chronic pain (ICD-10 - G89.29) [employer] Other 01-04-2024 Evaluation note* Encounter Date Diagnosis [...] to AKA history. Sees pain managment in [place] Apr, Pneumonia, unspecified organism (ICD-10 - J18.9) Pulmonolary consult. Improving. Apr, Nosocomial condition (ICD-10 - Y95) Apr, Atrial fibrillation with RVR (ICD-10 - I48.91) presently in regular rhythm [employer] Other 12-21-2023 Evaluation note* Encounter Date Diagnosis Assessment Notes Treatment Notes Treatment Clinical Notes Mar, Acute UTI (ICD-10 - N39.0) UA will be taken to hospital Pt cannot provide UA presently. We suspect UTI due to her recent confustion. Order printed and given to daughter. She will take it to [facility] when she goes to work tomorrow. Mar, Cellulitis of right leg (ICD-10 - L03.115) Patient is advised to stay well hydrated. Finish the full antibiotic until gone. Patient is advised to add a probiotic to their diet such as yogurt. Follow up to let us know if symptoms have improved Mar, Chronic constipation (ICD-10 - K59.09) samples of miralax given [employer] Other 12-20-2023 Evaluation note* Encounter Date Diagnosis Assessment Notes Treatment Notes Treatment Clinical Notes Mar, Confusion (ICD-10 - R41.0) [employer] Other 12-18-2023 Note-follows [facility]12-18-2023 Note-stable, concerns for hypotension given first BP in [facility] Note-recovered EF per recent echo 03/2023 EF 55-60% -NYHA unable to asses given wheel chair bound and left AKA< she does state she is able to do basic ADLs -GDMT: stop lisionpril given hypotension, stop coreg, Will start toprol xl 25mg daily and do event monitor to watch for RVR -prioritizing rate control at this time -continue aldactone 25mg, [facility]-s/p left AKAUniversSum[facility]12-18-2023 Note-noted in hx, sees a vascular [facility]Un[facility]-12-2023 Note-s/p stent to RCA and ostial left main in 2019 -will increase to high intensity statin 40mg lipitor given she is done drinking -stop ASA and start eliquis 2.5mg BID for AF, ct plavix -noted to not be a good candidate for CABG given resp diseaseUnOur [facility]12-18-2023 Note- stable, she is on supplemental O2 as needed - she may not be a great candidate for amiodaroneUniversSum[facility]12-18-2023 NoteNew patient here to establish care. She was recently discharged from [facility] for new onset afib. AC was not started. She has a right carotid stent that was placed years ago at [facility]. She does not still follow with vascular surgeon. She is transferring cardiology care from [facility] to [place]. Review of Systems Cardiovascular: Positive for dyspnea [...] follow-up with cardiology and is switching to [facility] She was admitted to [facility] with new onset A-fib, alcohol withdrawal which was treated with benzodiazepines, sepsis, respiratory failure, COPD exacerbation all likely due to COVID infection, she was discharged 04/01/2023. 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 She states she has stopped drinking since [...] such as patterns or other associated symptoms [employer] Other 11-27-2023 Evaluation note* Encounter Date Diagnosis Assessment Notes Treatment Notes Treatment Clinical Notes Feb, Chronic pain (ICD-10 - G89.29) [employer] Other 11-06-2023 History of Present illness Narrative* [...] List Diagnosis Date Noted Amputation of leg ([facility]) 03/01/2023 History of right-sided carotid endarterectomy 03/01/2023 Arteriosclerosis of coronary artery 02/26/2023 Bilateral carotid bruits 02/26/2023 Chronic obstructive pulmonary disease ([facility]) 02/26/2023 Hyperlipidemia 02/26/2023 Ischemic cardiomyopathy [...] vertebral flow Problems addressed today included atherosclerotic [place] vessel coronary artery disease, hyperlipidemia, cerebrovascular disease, [...] MONTHS Adelaida Hargrove MD [facility] Work Phone: 1(759) 721-458911-06-2023 Instructions* Patient Instructions* Tran Morales LPN - [...] time of your visit. [facility] Work Phone: 1(319) 747-780406-27-2023 Evaluation note* Encounter Date Diagnosis Assessment Notes [...] discussion, agrees with plan, denies any questions. [employer] Other 05-30-2023 Evaluation note* Encounter Date Diagnosis Assessment Notes Treatment Notes Treatment Clinical Notes August, Acute bacterial conjunctivitis of both eyes (ICD-10 - H10.33) [place] [facility] is contagious. Wash hands frequently and try not to rub eyes. Use warm wash cloth to keep them clean or to remove discharge from eyes. Use drops until eyes are clear then 3 more days August, PAD (peripheral artery disease) (ICD-10 - I73.9) Pt agrees to referral to [facility]. 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 She is established w pain management for this problem August, Acute non-recurrent maxillary sinusitis (ICD-10 - J01.00) agrees to antibiotic for sore throat. August, History of left abov e knee amputation (ICD-10 - Z89.612) August, Chronic pain (ICD-10 - G89.29) Reviewed OARRS report. Refilled rx. [employer] Other 05-30-2023 Evaluation note* Encounter Date Diagnosis Assessment Notes Treatment Notes Treatment Clinical Notes August, Chronic pain (ICD-10 - G89.29) [employer] Other 02-06-2023 Evaluation note* Encounter Date Diagnosis [...] Continue to cover and monitor area. 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 May, Lumbar degenerative disc disease (ICD-10 - M51.36) chronic pain due to lumbar issues and BKA amputation. will call when pain med refill is needed. [employer] Other 04-14-2022 History of Present illness Narrative* [...] Ejection fraction is typically been estimated at mtelio56%. She indicates that her breathing has progressively worsened again. She does not believe there is been really any change to her pulmonary status. [facility] DO Work Phone: 1(209) 203-269804-14-2022 History of Present illness Narrative* Previously seen [...] profile lipid profile prior to next visit. -[facility] 250 DO Work Phone: 1(403) 937-597004-14-2022 History of Present illness Narrative* Previously seen [...] Ejection fraction is typically been estimated at wfcsci47%. She indicates that her breathing has progressively [...] profile lipid profile prior to next visit. [facility] Work Phone: 1(309) 220-472701-28-2022 NoteHNO ID: [id number] Author: Chavez Dillard MD Service: ? Author [...] interventional pain procedures: Seen pain management in [facility] Did an injection with no relief [...] reproduction bilaterally. Extremities: Peripheral (more content not included)...[facility] 12-09-2020 NotePROCEDURE: MRI THIGH LT WO CON [...] Electronically authenticated by: JOSIE PARIS Date: 2020-12-09 16:49The [facility] [id number] NoteHISTORY AND PHYSICAL EXAMINATION HISTORY: This patient [...] be doing so in the near future. [facility] Signed and Approved by: ROXI MCCLENDON 11/28/2020 09:43:00[facility] [id number] NoteOPERATIVE NOTE OPERATION DATE: 11-28-20 ANESTHETIC: Topical. [...] was injected into the anterior chamber and [facility] cell sponge was used to check the wounds to be water tight. One drop of apraclonidine and 1 drop of prednisolone acetate were placed into the eye and shield was placed over top. The patient was sent to the postoperative area in satisfactory condition to followup the following day for postoperative care. [facility] Signed and Approved by: ROXI MCCLENDON 12/26/2020 11:09:00[facility]07-06-2021 NotePAIN MANAGEMENT Consultation Date: 10-29-20 CHIEF COMPLAINT: [...] periosteum of the femur. cc:Dr. John Lentz. [facility] Signed and Approved by: DR DORA BELLA 11/05/2020 12:13:00[facility]07-01-2021 NoteHISTORY AND PHYSICAL EXAMINATION HISTORY: The patient [...] and go forward with her elective procedure. [facility] Signed and Approved by: ROXI MCCLENDON 10/24/2020 11:46:00[facility]07-01-2021 NoteOPERATIVE NOTE OPERATION DATE: 10-24-20 ANESTHETIC: Topical. [...] was injected into the anterior chamber and [facility] cell sponge was used to check the wounds to be water tight. One drop of apraclonidine and 1 drop of prednisolone acetate were placed into the eye and shield was placed over top. The patient was sent to the postoperative area in satisfactory condition to followup the following day for postoperative care. [facility] Signed and Approved by: ROXI MCCLENDON 11/27/2020 16:58:00[facility]06-22-2021 NotePAIN MANAGEMENT Consultation Date: 10-15-20 CHIEF COMPLAINT: Left tayjl-igc-svip amputation stump pain. HISTORY OF PRESENT ILLNESS: [...] 2. Lumbar spondylosis. 3. Status post left ivtku-ulb-wrwg amputation 2018. 4. Stump pain. 5. Neuromatous [...] daughter understand and would like to proceed. [facility] Signed and Approved by: DR DORA BELLA 10/29/2020 10:44:00[facility]06-22-2021 NotePAIN MANAGEMENT PROCEDURE NOTE Date: 10-15-20 PRE AND POST PROCEDURE DIAGNOSIS: Neuromatous stump pain, neuromatous pain status post left kzuov-oda-mmhh amputation. PROCEDURE NAME:Neuroma stump injection. PROCEDURE: Subsequent [...] pain symptomatology that would have been present. [facility] Signed and Approved by: DR DORA BELLA 10/29/2020 10:44:00[facility]04-26-2021 NotePAIN MANAGEMENT Consultation Date: 08-19-20 HISTORY OF [...] baclofen. 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 On July 30 the [...] her pain. Dictated by Hemant Red APRN [facility] Signed and Approved by: HEMANT RED 08/26/2020 16:35:00[facility]03-08-2021 NoteCONSULTATION Consultation Date: 07/01/2020 PAIN MANAGEMENT CONSULTATION HISTORY OF PRESENT ILLNESS: This is a very pleasant 75-year-old female patient who comes to the [facility] for the very first time. [...] patient had stents July of 2018 at [facility]. Originally the patient was placed on Plavix [address] Arnold; however, Dr. Pitt in [place] took over the Plavix medication. The patient [...] the lumbar x-ray is without any deformities. [facility] Signed and Approved by: HEMANT RED 07/08/2020 17:02:00[facility]03-08-2021 NoteCONSULTATION Procedure Date: 07/01/2020 PROCEDURE NOTE: PREOPERATVE [...] signs were obtained and were stable. . [facility] Signed and Approved by: HEMANT RED 07/08/2020 17:03:00[facility]04-01-2019 History of Present illness Narrative* Mrs. Merritt [...] Ejection fraction is typically been estimated at assoic91%. She indicates that her breathing has progressively [...] is completed. No change made to medications. [facility] Work Phone: Evaluation noteNo InformationNort [employer] Other Evaluation note* Diagnosis Arteriosclerosis of coronary [...] right-sided carotid endarterectomy documented in this encounter [facility] Work Phone: History general Narrative - Reported* Type Description Date Medical History High Cholesterol Medical History Depression Medical History COPD Medical History Congestive Heart Failure Surgical History Breast Augmentation 1984 Surgical History Hyster 1985 Surgical History Shoulder- [...] Hospitalization History Suicide Hospitalization History See above [employer] Other History general Narrative - Reported* Type Description Date Medical History High Cholesterol Medical History Depression Medical History COPD Medical History Congestive Heart Failure Surgical History Breast Augmentation 1983 Surgical History Hyster 1985 Surgical History Shoulder- Cuff Surgery-right Surgical History hemorrhoidectomy 1975 Surgical History Left Leg Stents 11/2009 Surgical [...] Hospitalization History Suicide Hospitalization History See above [employer] Other Reason for referral (narrative)* Consultation (Routine) - Authorized Specialty Diagnoses / Procedures Referred By Sherry t Referred To Contact Cardiology Diagnoses Arteriosclerosis of coronary artery Procedures Follow Up In Cardiology Adelaida Hargrove MD [address] [place] [id number] Adelaida Hargrove MD [address] [place] [id number] Referral ID Status Reason Start Date Expiration Date V isits Requested Visits Authorized [id number] Authorized 03/01/2023 02/29/2024 1 1 [facility] Work Phone: Summary Purpose Family [...] seen for a 6 month follow-up of.SANCHEZ CHAPIN is being seen for a 6 month follow-up of.SANCHEZ MERRITT is being seen for a 6 month follow-up of.SANCHEZ MERRITT is being seen for a 6 month follow-up of. Reason for Referral Reason * 05/12 followup COPD, recent pneumonia, on oxygen. Diagnosis 1 Chronic obstructive pulmonary disease, unspecified COPD type (J44.9) Referral Organization [facility] Referring Provider First Name John Referring Provider Last Name Abhijeet Referring Provider [facility] Referred [facility] Referred Provider Tahir Royal Referred Address [address] [place], [place],[address] Referred Provider Specialty Pulmonary Fidelina seases Referral Priority Routine General Notes Dai Aaron 07:48:28 AM >received today, attachments made, notes locked, referral faxed Clinical Notes p: [phone] f: [phone] Reason *Waiting for appt Former pt of Dr. Mejia - now has swelling and discoloration in R lower leg. Hx of L AKA Diagnosis 1 PAD (peripheral yuli ry disease) (I73.9) Referral Organization [facility] Referring Provider First Name John Referring Provider Last Name Abhijeet Referring Provider [facility] Referred Organization [facility] Referred Provider Jaspreet Ventura Referred Address [address],[place] [address] ,[phone] Referred Provider Specialty Vascular April christianne Referral Priority Routine General Notes ElderDai farfan 01:06:20 PM >received today, faxed P2P Additional Source Comments INFORMATION SOURCE (unrecogn ized section and content) DATE CREATED AUTHOR 01/02/2021 [facility] DATE CREATED AUTHOR AUTHOR'S ORGANIZ ATION 07/18/2021 [facility] DATE CREATED AUTHOR AUTHOR'S ORGANIZ ATION 02/27/2022 [facility] DATE CREATED AUTHOR AUTHOR'S ORGANIZ ATION 02/27/2022 [facility] DATE CREATED AUTHOR AUTHOR'S ORGANIZ ATION 04/17/2022 [facility] DATE CREATED AUTHOR AUTHOR'S ORGANIZ ATION 12/18/2022 [facility] DATE CREATED AUTHOR AUTHOR'S ORGANIZ ATION 03/02/2023 [facility] DATE CREATED AUTHOR AUTHOR'S ORGANIZ ATION 04/13/2023 [facility] REASON FOR VISIT (unrecogniz ed section and content) Refill Reason Comments Follow-up 1 year Care Teams (unrecognized sec tion and content) Fisher Trammel Net Relationship Specialty Start Date End Date John Lentz MD [address] [place] [address] [place] [address] PCP - General 11/03/18 FOR RECORDS PERTAINING [...] BE BASED ON THE PRIMARY CLINICAL RECORDS. [employer] provides no warranty or guarantee of the accuracy or completeness of information in this document.
== END 2023-06-17 15:45 | disposition home or self-care (01) ==
LOC: RAD 15:45
PROVIDERS: PCP Family Medicine; Visit Provider Family Medicine
DX: J18.9 Pneumonia, unspecified organism (principal); R91.8 Other nonspecific abnormal finding of lung field
CPT/HCPCS: 71046

== ENCOUNTER 2023-06-30 12:41 | Outpatient (OUT) | payer MEDICARE, SELFPAY ==
--- NOTE | 2023-06-30 13:40 | RT_ITS ---
[facility] Test Date: 2023-06-30 Pat Name: SANCHEZ SAMSON Department: Room: - Gender: Female Properties Supervisor: Fito Robertson RRT : 1945 Requested By: Tahir Royal Order Number: [id number] Reading MD: Tahir Royal Interpretive Statements Pulmonary function testing was completed according to ATS criteria. Findings were considered accurate and reproducible, with exception of DLCO which did not meet ATS standards and unable to be completed. Both pre- and post-bronchodilator values utilized for spirometry. Spirometry (based on pre-bronchodilator values): -FEV1/FVC: Reduced @ 60% -FEV1: Moderately reduced @ 60% -FVC: Reduced @ 73% -There is no significant bronchodilator response. Lung volumes by plethysmography (based on pre-bronchodilator values): -RV: Normal @ 93% -TLC: Normal @ 92% Diffusion capacity: -Unable to be performed -Hb is normal @ 14.6g/dL Flow-volume loop: -Moderate obstructive pattern Comparison: -FEV1 = 69% on 02/29/2020 and 48% 04/09/2017. DLCO was low @ 33% and TLC elevated @ 131% on 04/09/2017. Impressions: -Spirometry suggests moderate obstruction. There is no bronchodilator response. Lung volumes are normal. Unable to perform DLCO. Overall study suggests COPD. Slight decline in spirometry compared to 02/29/2020, but still overall improved compared to 03/10/2017. Clinical correlation required. Electronically Signed On 06-30-2023 18:22:10 EST by Tahir Royal
[2023-06-30] MEDS: ALBUTEROL SULFATE 2.5 MG/3 ML VIAL NEB IH (13:55)
--- NOTE | 2023-06-30 14:31 | CT_ITS ---
[address] [address] Patient Name: SANCHEZ SAMSON MRN: [id number] date: 1945 Sex: F Assigned Patient Location: CARD Current Patient Location: Accession/Order Number: [id number] Exam Date: 06/30/2023 14:40 Report Date: 07/01/2023 08:05 At the request of: ARNULFO WESLEY Procedure: CT chest wo con EXAMINATION: CT chest wo con HISTORY: Pneumonia J18.9 COMPARISON: XR chest 06/17/2023, CT chest 04/22/2023, CT chest high-resolution 06/18/2020 TECHNIQUE: Multi-planar CT images were obtained without and/or with IV contrast as indicated by examination type. Axial, Coronal, and Sagittal images. Dose reduction techniques were achieved by using automated exposure control and/or adjustment of mA and/or kV according to patient size and/or use of iterative reconstruction technique. FINDINGS: LUNGS: Large right pleural effusion 3.2 cm in thickness with fluid extending into the fissures and likely a loculated fluid collection along the upper lateral right chest wall. Moderate size area of passive atelectasis versus consolidation of the lung parenchyma within the right upper lobe. No appreciable bronchial obstruction or mass. PLEURA: No mass, effusion, or pneumothorax. VASCULATURE: No abnormality. LEXIE: No mass or adenopathy. MEDIASTINUM: No mass or adenopathy. CARDIAC: Atherosclerotic coronary artery disease. No pericardial effusion. AORTA: No aneurysm or dissection. CHEST WALL: No mass or axillary adenopathy. BONES: Neurostimulator electrode within central spinal canal at the T9 level. No bone lesion or fracture. LIMITED ABDOMEN: No suspicious findings Limited images of the upper abdomen. OTHER: Negative. CT/CT chest wo con IMPRESSION: 1. Large right pleural effusion and likely a secondary loculated components along the upper lateral right chest wall. 2. Moderate size area of passive atelectasis versus consolidation/infectious infiltrate within right upper lobe. No appreciable mass or bronchial obstruction. 3. Follow-up to document clearing, and to exclude an underlying mass, is recommended. Electronically authenticated by: JOSIE PARIS Date: 07/01/2023 08:05
== END 2023-06-30 12:42 | disposition home or self-care (01) ==
LOC: CARD 12:41
PROVIDERS: PCP Family Medicine; Visit Provider Internal Medicine
DX: J18.9 Pneumonia, unspecified organism (principal); J90 Pleural effusion, not elsewhere classified
CPT/HCPCS: 71250; 94060; 94726; 94729

== ENCOUNTER 2023-08-31 05:43 | Inpatient (IN) | payer MEDICARE, SELFPAY ==
[2023-08-31] VITALS (74 sets, daily range): BP systolic 85–130; BP diastolic 50–85; PULSE 36–107; TEMP 36.8–37.3; O2SAT 83–100; BMI 21.7; BMI 21.5
--- OUTSIDE RECORDS SUMMARY | 2023-08-31 05:52 | XMS_ITS | CCD ---
Author Organization [facility] Care Team Providers Care Rv Repairer Name Role Phone SELVIN, DR DORA Buenrostro Admitting Unavailable CLINKER, HEMANT Consulting Unavailable LENTZ, DR JOHN Brown Primary Care Unavailable SELVIN, DR DORA Buenrostro Attending Unavailable SELVIN, DR DORA Buenrosrto Admitting Unavailable LENTZ, DR JOHN Brown Primary Care Unavailable BELLA, DR DORA Buenrostro Consulting Unavailable SELVIN, DR DORA Buenrostro Attending Unavailable SELVIN, DR DORA Buenrostro Attending Unavailable SELVIN, DR DORA Buenrostro Admitting Unavailable CLINKER, HEMANT Consulting Unavailable LENTZ, DR JOHN Brown Primary Care Unavailable SELVIN, DR DORA Beunrostro Admitting Unavailable LENTZ, DR JOHN Brown Primary Care Unavailable SELVIN, DR DORA Buenrostro Attending Unavailable SELVIN, DR DORA Buenrostro Admitting Unavailable LENTZ, DR JOHN Brown Primary Care Unavailable SELVIN, DR DORA Buenrostro Consulting Unavailable SELVIN, DR DORA Buenrostro Attending Unavailable CRISTIANMALDONADO Chase Consulting Unavailable DORKOSKSEMAJ SMITH Consulting Unavailable SELVIN, DR DORA Buenrostro Admitting Unavailable SELVIN, DR DORA Buenrostro Consulting Unavailable LENTZ, DR JOHN Brown Primary Care Unavailable SELVIN, DR DORA Buenrostro Attending Unavailable CLINKER, HEMANT Consulting Unavailable CLINKER, HEMANT Attending Unavailable CLINKER, HEMANT Admitting Unavailable LENTZ, DR JOHN Brown Primary Care Unavailable MINGUS, DR LORENA Tirado Consulting Unavailable CLINKER, HEMANT [...] Unavailable RAINA, DR JOSIE Lopez Consulting Unavailable CHABAN, DR BENAVIDES Consulting Unavailable BELLA, DR DORA [...] Care Unav ailable Abhijeet, Dr. John Melgoza [facility] Unav ailable Jmimy, Dr. Tracey De La Cruz Attending Unavail able Lyster, Dr. Tracey De La Cruz Referring Unavail able Lyster, Dr. Tracey De La Cruz Attending Unavail able Lyster, Dr. Tracey De La Cruz Referring Unavail able Lentz, Dr. John Melgoza [facility] Unav ailable Delvin, Dr. Son Attending Unavailable Abhijeet, Dr. John Melgoza [facility] Unav ailable John Lentz Unavailable Margy Olivas Unavailable Margy Olivas Attending Unavailable Margy Olivas Admitting Unavailable John Lentz Primary Care Unavailable John Lentz MD Primary Care Provider ADELAIDA HARGROVE Attending Unavailable JOHN LENTZ Primary Care UnavailCHRIS Xiong Attending Unavailable OMKAR FERNANDEZ Attending Unavailable Allergies Allergy Classification Reported Allergen(s) Allergy Type Date of Onset Reaction(s) Facility (18 sources) Bacitracin; Translations: [BACITRACIN] Drug Allergy 07-19-19 21 Unknown, Unknown Reaction [facility] Repository (3 sources) Neomycin; Translations: [NEOMYCIN] Drug Allergy 07-19-19 Unknown Reaction [facility] Repository (4 sources) Vancomycin; Translations: [VANCOMYCIN] Drug Allergy 01-17-20 15 Rash [facility] Repository (2 sources) Polymyxin B Drug allergy (disorder) 07-19-19 Unknown Reaction [facility] Repository (20 sources) Vancomycin; Translations: [vancomycin] Drug Allergy 07-21-19 14 [facility] (20 sources) Aminoglycosides (Antibiotic) Propensity to adverse reactions 06-17-19 24 Unknown, Unknown Reaction [facility] (9 sources) Bacitracin Drug Allergy Unknown [employer] Other (20 sources) Neomycin Drug Allergy Unknown [facility] [facility] Other (20 sources) Polymyxin B Drug Allergy Unknown [employer] [facility] Other (17 sources) Contrast media Propensity to adverse reactions 07-21-19 14 Unknown [facility] [facility] Other (17 sources) Erythromycin Drug Allergy Unknown [employer] [facility] Other (17 sources) fluticasone / salmeterol Drug Allergy 09-11-19 16 Unknown [employer] [facility] Other (16 sources) influenza A virus (H1N1) antigen / influenza A virus (H3N2) antigen / influenza B virus antigen Drug Allergy Comment:Flu Injection [employer] [facility] Other (18 sources) traMADol Drug Allergy 10-17-19 15 Unknown, Unknown Reaction [facility] (17 sources) Advair Diskus *ANTIASTHMATIC AND BRONCHODILATOR AG Propensity to adverse reactions Unknown [employer] [facility] Other (7 sources) patient allergy list reviewed by nurse or physicia Propensity to adverse reactions 09-22-19 18 Comment:Done [employer] Other (18 sources) Dyes Propensity to adverse reactions 04-29-19 24 Comment:CT DYE [facility] (7 sources) Allergies Reconciled Propensity to adverse reactions Unknown [employer] [facility] [employer] Other (17 sources) TraMADol & Dietary Manage Prod *ANALGESICS - OPIOI Propensity to adverse reactions Unknown [facility] [employer] Other (17 sources) Vaccine product containing Influenza virus antigen (medicinal product) Drug allergy 03-03-20 17 Unknown [facility] [employer] Other (17 sources) Contraindication to Flu Injection Propensity to adverse reactions 08-18-19 18 Comment:advers e rxn/side effects [facility] [employer] Other (1 source) Aminoglycosides (Antibiotic) Drug allergy (disorder) 10-25-19 [facility] Repository (1 source) Vancomycin Drug Allergy 10-25-19 [facility] Repository (2 sources) Flucelvax Quadrivalent Drug allergy 04-29-19 Comment:Flu Injection [facility] (1 source) fluticasone Drug Allergy 06-17-19 Unknown Reaction [facility] (1 source) erythromycin base Allergy to substance 06-17-19 Unknown Reaction [facility] (1 source) POLYMYXIN B SULFATE-HC; Translations: [POLYMYXIN B SULFATE-HC] Propensity to adverse reactions to drug (disorder) 08-29-19 [facility] Repository Medications Current Medications Medication Drug Class(es) Dates Sig (Normalized) Sig (Original) acetaminophen 325 mg oral capsule (1 source) Start: 07-26-2018 take 650 mg by mouth every six hours Acetaminophen Active 650 MG PO Q6H July 25, 2018 11:00pm [id number] 200 actuat albuterol 0.09 mg/actuat metered dose inhaler (20 sources) beta2-Adrenergic Agonist Start: 06-16-2023 take 1 puff(s) by inhalation every four hours Albuterol Sulfate Active 2 PUFF INHALATION Every 4 hours June 16, 2023 12:00am Start: 04-29-2023 take 2 puff(s) by in halation every four hours as needed Albuterol Sulfate HFA 108 (90 Base) MCG/ACT 2 puff Inhalation every 4 hrs prn Apr, Active Start: 07-26-2018 take 0.63 mg by inha lation three to four times daily Albuterol Sulfate Active 0.63 mg/mL INHALATION 3-4 TIMES DAILY July 25, 2018 11:00pm Start: 08-05-2017 End: 07-12-2018 take 2.5 mg by inhalation every four hours Albuterol Sulfate Discontinued 2.5 MG INHALATION Q4H 500 30 August 04, 2017 11:00pm July 12, 2018 7:46am Start: 04-16-2017 End: 08-05-2017 Albuterol Sulfate Discontinu ed 1 INH INHALATION Q4H April 16, 2017 12:00am August 05, 2017 2:52pm Start: 12-31-2016 End: 07-12-2018 take 1 puff(s) by inhalation every four hours Albuterol Sulfate (Ventolin Hfa) 90 mcg/actuation Hfa Aerosol Inhaler Discontinued 2 PUFF INHALATION Every 4 hours December 30, 2016 11:00pm July 12, 2018 7:46am take 1 puff(s) by in halation every [...] COPD 496 for 30 days Apr, Active aluminum hydroxide 40 mg/ml / magnesium hydroxide 40 mg/ml / simethicone 4 mg/ml oral suspension (1 source) Start: 07-12-2018 take 1 mL by mouth every four hours Alum-Mag Hydroxide-Simeth (Mag-Al Plus) 200-200-20 mg/5 mL Suspension Active 30 ML PO Q4H 0 July 11, 2018 11:00pm apixaban 2.5 mg oral tablet (8 sources) Factor Xa Inhibitor take 1 tablet by mouth every twelve hours Eliquis 2.5 MG 1 tablet twice a day Active atorvastatin 20 mg oral tablet (20 sources) HMG-CoA Reductase Inhibitor Start: 06-16-2023 take 20 mg by mouth once daily in the evening Atorvastatin Active 20 MG PO Every evening June 16, 2023 1:12pm Start: 09-08-2021 take 1 tablet by reva th once daily at bedtime atorvastatin (Lipitor) 20 mg tablet Take 1 tablet (20 mg) by mouth once daily at bedtime. 0 09/08/2021 Active Start: 10-14-2018 End: 06-16-2023 take 40 mg by mouth once daily in the evening Atorvastatin Discontinued 40 MG PO Every evening October 14, 2018 1:09am June 16, 2023 1:22pm Start: 07-12-2018 End: 10-14-2018 take 20 mg by mouth once daily in the evening Atorvastatin Discontinued 20 MG PO Every evening 0 July 11, 2018 11:00pm October 14, 2018 1:10am azithromycin 250 mg oral tablet (3 sources) Macrolide Antimicrobial Start: 09-22-2022 Azithromycin 250 MG as directed Orally 2 tabs po today, then 1 tab daily x 4 more days for 5 August, Active cephalexin 500 mg oral capsule (9 [...] tablet (20 sources) [id number] Platelet Inhibitor Start: 09-12-2018 take 1 tablet by mouth once daily clopidogrel (Plavix) 75 mg tablet Take 1 tablet (75 mg) by mouth once daily. 0 09/11/2021 Active cyclobenzaprine hydrochloride 5 mg oral tablet (1 source) Muscle Relaxant Start: 10-25-2019 take 5 mg by mouth three times daily Cyclobenzaprine Active 5 MG PO Three times daily 5 October 24, 2019 11:00pm cyproheptadine hydrochloride 0.4 mg/ml oral solution (1 source) Start: 08-15-2018 take 4 mg by mouth once daily at bedtime Cyproheptadine Active 4 MG PO Daily at bedtime 400 August 14, 2018 11:00pm docusate sodium 100 mg oral capsule (20 sources) Start: 08-05-2017 End: 10-16-2018 take 100 mg by mouth twice daily Docusate Sodium Active 100 MG PO Twice daily 60 October 16, 2018 10:23am further refills per PCP Start: 07-28-2017 End: 08-05-2017 take 1 capsule by mouth once daily Docusate Sodium (Colace) 100 mg Capsule Discontinued 100 MG PO Daily July 27, 2017 11:00pm August 05, 2017 2:51pm DULoxetine 60 mg delayed release oral capsule (20 sources) Serotonin and Norepinephrine Reuptake Inhibitor Start: 06-16-2023 End: 06-17-2023 take 1 capsule by mouth once daily Duloxetine (Cymbalta) 60 mg capsule,delayed release(DR/EC) Active 60 MG PO Daily June 16, 2023 12:00am Start: 05-26-2021 take 2 capsules by [facility] three times daily DULoxetine (Cymbalta) [address] capsule Take 2 capsules (60 mg) by mouth 3 times a day. 0 05/26/2021 Active Start: 05-26-2021 take 1 capsule by mo [facility] twice daily DULoxetine HCl - 30 MG Oral Capsule Delayed Release Particles TAKE 1 CAPSULE TWICE DAILY. Quantity: 0 Refills: 0 Ordered: 26-May-2021 DO Start : 26-May-2021 Active take 1 capsule by mo uth every twenty-four hours Cymbalta 60 MG 1 capsule Orally Once a day for 90 days Active fluconazole 150 mg oral tablet (8 sources) Azole Antifungal Start: 04-29-2023 Fluconazole 1 50 MG 1 tablet Orally for 10 day(s) Apr, Active 30 actuat fluticasone furoate 0.2 mg/actuat / vilanterol 0.025 mg/actuat dry powder inhaler (2 sources) Corticosteroid, beta2-Adrenergic Agonist take 1 puff(s) by inhalation once daily Breo Ellipta 200-25 MCG/ACT 1 puff Inhalation Once a day for 30 days Active furosemide 20 mg oral tablet (9 sources) Loop Diuretic Start: 06-17-2023 take 20 mg by mouth once daily Furosemide Active 20 MG PO Daily 30 June 17, 2023 12:00am take 1 tablet by reva th every twenty-four hours Furosemide 40 MG 1 tablet once a day Active gabapentin 800 mg oral tablet (20 sources) Anti-epileptic Agent Start: 06-16-2023 take 800 mg by mouth three times daily Gabapentin Active 800 MG PO Three times daily June 16, 2023 12:00am Start: 04-01-2021 End: 03-01-2023 take 1 tablet by mouth three times daily gabapentin (Neurontin) 800 mg tablet Take 1 tablet (800 mg) by mouth 3 times a day. 0 04/01/2021 03/01/2023 Discontinued (Ineffective) Start: 12-31-2016 End: 06-17-2023 take 600 mg by mouth twice daily Gabapentin Discontinued 600 MG PO Twice daily 0 July 11, 2018 11:00pm June 17, 2023 3:18pm take 1 tablet by reva th three times daily gabapentin (Neurontin) 600 mg tablet Take 1 tablet (600 mg) by mouth 3 times a day. 0 Active Gabapentin 600 M G 1 Tablet Orally 2-3 times per day Active Incruse Ellipta 62.5 MCG/INH (20 sources) take 1 puff(s) by mouth once daily Incruse Ellipta 62.5 MCG/INH INHALE 1 PUFF BY MOUTH EVERYDAY Inhalation for 30 Active ipratropium bromide 0.2 mg/ml inhalation solution (3 sources) Anticholinergic Start: 9 End: 9 take 0.5 mg by inhalation four times daily Ipratropium [place] Active 0.5 MG INHALATION Four times daily 150 August 15, 2018 11:00pm Start: 07-28-2017 End: 07-12-2018 take 1 puff(s) by inhalation every six hours Ipratropium [place] (Atrovent Hfa) 17 mcg/actuation Hfa Aerosol Inhaler Discontinued 1 PUFF INHALATION Q6H July 27, 2017 11:00pm July 12, 2018 7:48am levoFLOXacin 500 mg oral tablet (5 sources) Quinolone Antimicrobial Start: 09-24-2022 take 1 tablet by mouth every twenty-four hours levoFLOXacin 500 MG 1 tablet Orally Once a day for 10 days Sep, Active Start: 06-01-2022 take 1 tablet by reva th every twenty-four hours levoFLOXacin 500 MG 1 tablet Orally Once a day for 5 days May, Active Start: 07-12-2018 End: 07-21-2018 take 1 tablet by mouth once daily Levofloxacin (Levaqu in) 750 mg tablet Discontinued 750 MG PO Daily 9 July 11, 2018 11:00pm July 20, 2018 11:02pm lisinopril 2.5 mg oral tablet (20 sources) Angiotensin Converting Enzyme Inhibitor Start: 06-16-2023 take 2.5 mg by mouth once daily Lisinopril Active 2.5 MG PO Daily June 16, 2023 12:00am Start: 10-14-2018 End: 06-17-2023 take 1 tablet by mouth once daily [...] [place] lt - as directed Orally Active Multivitamin With Folic Acid (Thera) 400 mcg Tablet (1 source) Start: 07-12-2018 take 1 tablet by mouth once daily Multivitamin With Folic Acid (Thera) 400 mcg Tablet Active 1 TAB PO Daily 0 July 11, 2018 11:00pm mupirocin 0.02 mg/mg topical ointment (9 sources) RNA Synthetase Inhibitor Antibacterial Mupirocin 2 % 1 application Externally Twice a day for 5 days Active nitroglycerin 0.4 mg sublingual tablet (15 sources) Nitrate Vasodilator Start: 08-12-2018 Nitroglycerin Active 0.4 MG SUBLINGUAL Every 5 minutes x 3 doses August 11, 2018 11:00pm nystatin 100 unt/mg topical powder (18 sources) Polyene Antifungal Start: 06-16-2023 Nystatin Active 1 APPLIC TOPICAL Twice daily June 16, 2023 12:00am Nystatin [id number] UNIT/GM 1 application Externally Twice a day for 10 days Active ondansetron 4 mg oral tablet (20 sources) Serotonin-3 Receptor Antagonist Start: 06-16-2023 take 4 mg by mouth three times daily Ondansetron Hcl Active 4 MG PO Three times daily June 16, 2023 12:00am take 1 tablet by reva th three times daily as needed Ondansetron HCl 4 MG TAKE 1 TABLET BY MO [facility] THREE TIMES A DAY NEEDED for 16 Active oxyCODONE hydrochloride 10 mg oral tablet (20 sources) Opioid Agonist Start: 06-16-2023 End: 06-17-2023 take 10 mg by mouth every six hours Oxycodone Active 10 MG PO Every 6 hours 30 June 17, 2023 Start: 06-16-2023 End: 06-17-2023 take 5 mg by mouth every six hours Oxycodone Discontinued 5 MG PO Every 6 hours June 16, 2023 12:00am June 17, 2023 3:15pm Start: 03-22-2023 take 1 tablet by reva th every six hours oxyCODONE HCl 10 MG 1 tablet as needed Orally every 6 hrs for 30 days Feb, Active Start: 08-10-2018 End: 06-17-2023 take 1 tablet by mouth every six hours oxyCODONE HCl 10 MG 1 tablet as needed Orally every 6 hrs for 30 days Dec, Active Start: 07-12-2018 End: 07-17-2018 take 5 mg by mouth every four hours Oxycodone Discontinued 5 MG PO Q4H 30 5 July 12, 2018 July 16, 2018 11:03pm Start: 06-20-2018 End: 07-12-2018 take 5 mg by mouth once daily Oxycodone Discontinued 5 MG PO Daily June 20, 2018 12:00am July 12, 2018 7:46am Start: 04-16-2017 End: 08-05-2017 take 10 mg by mouth three times daily Oxycodone Discontinued 10 MG PO Three times daily April 16, 2017 12:00am August 05, 2017 2:53pm take 1 tablet by reva th every [...] oral tablet (20 sources) Proton Pump Inhibitor Start: 06-16-2023 take 40 mg by mouth once daily Pantoprazole Active 40 MG PO Daily June 16, 2023 12:00am Start: 10-14-2018 take 40 mg by mouth once daily Pantoprazole Active 40 MG PO Daily October 13, 2018 11:00pm take 1 tablet by reva th once daily Pantoprazole Sodium 40 MG TAKE 1 TABLET BY MOUTH EVERY DAY for 90 Active paxlovid (300/100) 20 x 150 mg & 10 x 100mg tablet therapy pack (11 sources) Paxlovid (300/10 0) 20 x 150 MG & 10 x 100MG as directed Orally for 5 days tell pt to hold plavix on paxlovid - thanks Active sennosides, skilled nursing 8.6 mg oral tablet (1 source) Start: 9 take 1 tablet by mouth three times daily Sennosides (Senna) 8.6 mg tablet Active 8.6 MG PO Three times daily October 15, 2018 11:00pm further refills per PCP simvastatin 40 mg oral tablet (2 sources) HMG-CoA Reductase Inhibitor Start: 9 take 40 mg by mouth at bedtime Simvastatin Active 40 MG PO Bedtime October 13, 2018 11:00pm Start: 12-31-2016 End: 07-12-2018 take 40 mg by mouth once daily in the evening Simvastatin Discontinued 40 MG PO Every evening December 30, 2016 11:00pm July 12, 2018 7:49am spironolactone 25 mg oral tablet (15 sources) Aldosterone Antagonist Start: 08-12-2018 take 1 tablet by mouth once daily spironolactone (Aldactone) 25 mg tablet Take 1 tablet (25 mg) by mouth once daily. 0 09/11/2021 Active thiamine 100 mg oral tablet (2 sources) Start: 12-31-2016 End: 07-12-2018 take 100 mg by mouth once daily Thiamine Hcl (Vitamin B1) Active 100 MG PO Daily July 11, 2018 11:00pm tiZANidine 4 mg oral tablet (20 sources) Central alpha-2 Adrenergic Agonist Start: 06-16-2023 take 4 mg by mouth three times daily Tizanidine Active 4 MG PO Three times daily June 16, 2023 12:00am take 1 tablet by mouth three patt es daily tiZANidine HCl 4 MG 1 tablet Orally three times daily for 90 days Active Umeclidinium (2 sources) Anticholinergic Start: 06-16-2023 Umeclidinium A ctive 1 INH INHALATION June 16, 2023 12:00am Start: 04-16-2017 End: 05-14-2017 take 62.5 ug by inhalation once daily Umeclidinium (Incruse Ellipta) 62.5 mcg/actuation Blister With Device Discontinued 1 INH INHALATION Daily April 16, 2017 12:00am May 14, 2017 7:05am {20 (nirmatrelvir 150 MG Ora l Tablet) / 10 (ritonavir 100 MG Oral Tablet) } Pack [Paxlovid 5-Day] (1 source) Paxlovid (300/10 0) 20 x 150 MG & 10 x 100MG as directed Orally for 5 days tell pt to hold plavix on paxlovid - thanks Active Completed/Discontinued Medications Medication Drug Class(es) Dates Sig (Normalized) Sig (Original) acetaminophen 325 mg / HYDROcodone bitartrate 5 mg oral tablet (4 sources) Opioid Agonist Start: 06-25-2018 End: 07-12-2018 take 1 tablet by mouth every four hours Hydrocodone-Acetami nophen ([place]) 5-325 mg Tablet Discontinued 1 TAB PO Q4H 10 June 25, 2018 12:00am July 12, 2018 7:46am Start: 08-05-2017 End: 06-20-2018 take 1 tablet by mouth every four hours Hydrocodone-Acetaminophen Discontinued 1 TAB PO Q4H 30 August 04, 2017 11:00pm June 20, 2018 7:43am Start: 05-14-2017 End: 08-05-2017 take 1 tablet by mouth every four to six hours Hydrocodone-Acetaminophen ([place]) 5-325 mg tablet Discontinued 1 TAB PO EVERY 4-6 HOURS May 14, 2017 July 30, 2017 2:39pm amitriptyline hydrochloride 10 mg oral tablet (4 sources) Tricyclic Antidepressant Start: 05-23-2021 take 1 tablet by mouth once daily at bedtime Amitriptyline HCl - 10 MG Oral Tablet TAKE 1 TABLET BY MOUTH EVERYDAY AT BEDTIME Quantity: 90 Refills: 0 Ordered: 21-Jun-2021 DO Start : 23-May-2021 Active amoxicillin 875 mg / clavulanate 125 mg oral tablet (2 sources) Penicillin-class Antibacterial Start: 09-12-2018 End: 10-14-2018 take 1 tablet by mouth twice daily Amoxicillin-Pot Clavulanate (Augmentin) 875-125 mg tablet Discontinued 1 TAB PO Twice daily September 11, 2018 11:00pm October 14, 2018 1:02am Start: 08-16-2018 End: 10-14-2018 take 1 tablet by mouth every twelve hours Amoxicillin-Pot Clavulanate (Augmentin) 875-125 mg tablet Discontinued 1 TAB PO Q12H August 15, 2018 11:00pm October 14, 2018 1:02am aspirin 81 mg chewable tablet (16 sources) Platelet Aggregation Inhibitor, Nonsteroidal Anti-inflammatory Drug Start: 08-12-2018 End: 06-17-2023 take 81 mg by mouth once daily Aspirin Discontinued 81 MG PO Daily October 14, 2018 1:09am June 17, 2023 3:11pm take 1 tablet by mouth once harshil y aspirin 81 mg EC tablet Take 1 tablet (81 mg) by mouth once daily. 0 Active benzonatate 100 mg oral capsule (1 source) Non-narcotic Antitussive Start: 07-12-2018 End: 10-16-2018 take 200 mg by mouth once daily at bedtime Benzonatate Discontinued 200 MG PO Daily at bedtime 0 July 11, 2018 11:00pm October 16, 2018 10:24am 120 actuat budesonide 0.16 mg/actuat / formoterol fumarate 0.0045 mg/actuat metered dose inhaler (20 sources) Corticosteroid, beta2-Adrenergic Agonist Start: 06-16-2023 End: 06-17-2023 Budesonide-Formote rol (Symbicort) 160-4.5 mcg/actuation HFA aerosol inhaler Discontinued 2 PUFF INHALATION June 16, 2023 12:00am June 17, 2023 3:11pm Start: 06-16-2022 Symbicort 160- 4.5 mcg/actuation inhaler Start: 05-14-2020 take 2 puff(s) by in halation twice daily Symbicort 80-4.5 MCG/ACT 2 puffs Inhalation Twice a day for 30 days Apr, Active Start: 05-14-2017 End: 05-14-2017 Budesonide-Formoterol Discon tinued MCG May 14, 2017 12:00am May 14, 2017 2:31pm Start: 12-31-2016 End: 06-17-2023 take 1 puff(s) by inhalation twice daily Budesonide-Formoterol (Symbicort) 160-4.5 mcg/actuation Hfa Aerosol Inhaler Discontinued 2 PUFF INHALATION Twice daily December 30, 2016 11:00pm June 17, 2023 3:11pm take 2 puff(s) by mo uth twice [...] 0 Refills: 0 Ordered: 08-Apr-2021 DO Active carvedilol 3.125 mg oral tablet (20 sources) alpha-Adrenergic [place], beta-Adrenergic [place] Start: 08-15-2018 take 1 tablet by mouth twice daily at mealtime Carvedilol 3.125 MG Oral Tablet TAKE 1 TABLET BY MOUTH TWICE A DAY WITH MEALS Quantity: 180 Refills: 3 Ordered: 14-Aug-2022 Adelaida Hargrove MD Start : 13-Aug-2022 Active ciclopirox 7.7 mg/ml topical cream (1 source) Start: 10-14-2018 End: 06-17-2023 Ciclopirox Discontinued 1 APPLIC TOPICAL Twice daily October 13, 2018 11:00pm June 17, 2023 3:15pm clindamycin 300 mg oral capsule (1 source) Lincosamide Antibacterial Start: 07-12-2018 End: 07-26-2018 take 300 mg by mouth every eight hours Clindamycin Hcl Discontinued 300 MG PO Every 8 hours 0 14 July 11, 2018 11:00pm July 26, 2018 9:21am codeine phosphate 2 mg/ml / guaiFENesin 40 mg/ml oral solution (1 source) Opioid Agonist Start: 04-16-2017 End: 05-14-2017 take 1 mL by mouth every eight hours Codeine-Guaifenes in Discontinued 5 ML PO Q8H April 16, 2017 12:00am May 14, 2017 7:15am doxycycline hyclate 100 mg oral capsule (1 source) Tetracycline-class Drug Start: 09-29-2018 End: 10-07-2018 take 100 mg by mouth twice daily Doxycycline Hyclate Discontinued 100 MG PO Twice daily 28 September 28, 2018 11:00pm October 07, 2018 12:51pm Fluticasone Propion-Salmetero l (1 source) Corticosteroid, beta2-Adrenergic Agonist Start: 07-12-2018 End: 07-26-2018 take 1 puff(s) by inhalation twice daily Fluticasone Propion-Salmetero l (Advair Hfa) 115-21 mcg/actuation Hfa Aerosol Inhaler Discontinued 2 PUFF INHALATION Twice daily 0 July 11, 2018 11:00pm July 26, 2018 9:21am folic acid 1 mg oral tablet (1 source) Start: 12-31-2016 End: 04-16-2017 Folic Acid Discontinued TABLET Daily December 30, 2016 11:00pm April 16, 2017 11:49am 12 hr guaiFENesin 600 mg extended release oral tablet (20 sources) Start: 10-14-2018 End: 06-17-2023 take 1 tablet by mouth every twelve hours Mucinex 600 MG 1 tablet as needed Orally every 12 hrs for 30 days Apr, Not-Taking/PRN Start: 07-12-2018 End: 10-14-2018 take 2 tablets by mouth twice daily, then take 1 tablet by mouth every twelve hours Guaifenesin (Mucinex) 600 mg Tablet Extended Release 12hr Discontinued 1200 MG PO Twice daily 0 July 11, 2018 11:00pm October 14, 2018 1:10am Start: 08-05-2017 End: 09-04-2017 take 1200 mg by mouth twice daily Guaifenesin Discontinued 1200 MG PO Twice daily 60 30 August 04, 2017 11:00pm September 03, 2017 11:02pm hydrOXYzine pamoate 25 mg oral capsule (20 sources) Antihistamine Start: 06-16-2023 End: 06-17-2023 take 25 mg by mouth every eight hours Hydroxyzine Pamoate Discontinued 25 MG PO Every 8 hours June 16, 2023 12:00am June 17, 2023 3:19pm Start: 07-12-2018 End: 06-17-2023 take 25 mg by mouth every six hours Hydroxyzine Pamoate Discontinued 25 MG PO Q6H 0 July 11, 2018 11:00pm June 17, 2023 3:19pm take 1 capsule by mo ut every eight hours hydrOXYzine Pamoate 25 MG 1 capsule as needed Orally every 8 hrs for 30 day(s) Active levalbuterol 0.21 mg/ml inhalation solution (2 sources) beta2-Adrenergic Agonist Start: 08-16-2018 End: 06-17-2023 take 0.63 mg by inhalation every six hours Levalbuterol Hcl Discontinued 0.63 MG INHALATION Q6H 90 August 15, 2018 11:00pm June 17, 2023 3:20pm Start: 07-12-2018 End: 08-16-2018 take 0.63 mg by inhalation four times daily Levalbuterol Hcl Discontinued 0.63 MG INHALATION Four times daily 0 July 11, 2018 11:00pm August 16, 2018 9:15am lidocaine 0.05 mg/mg topical ointment (1 source) Antiarrhythmic, Amide Local Anesthetic Start: 12-31-2016 End: 05-14-2017 Lidocaine Discontinued 1 APPLIC TOPICAL .every other day December 31, 2016 2:39pm May 14, 2017 7:14am apply small amount to left leg wound 3 times weekly as needed for dressing changes lubiprostone 0.024 mg oral capsule (7 sources) Chloride Channel Activator take 1 capsule by mouth twice daily at mealtime Amitiza 24 MCG Oral Capsule TAKE 1 CAPSULE TWICE DAILY WITH FOOD. Quantity: 0 Refills: 0 Ordered: 08-Apr-2021 DO Active Multi Vitamin TABS (13 sources) Multi Vitamin TABS TAKE 1 TABLET DAILY. Quantity: 0 Refills: 0 Ordered: 08-Apr-2021 DO Active Multivitamin (Daily-Apolinar) Tablet (1 source) Start: 12-31-2016 End: 07-12-2018 take 1 tablet by mouth once daily Multivitamin (Daily-Apolinar) Tablet Discontinued 1 TAB PO Daily December 30, 2016 11:00pm July 12, 2018 7:49am Multivitamin preparation (1 source) Start: 06-16-2023 End: 06-17-2023 take 1 tablet by mouth once daily Multivitamin Discontinued 1 TAB PO Daily June 16, 2023 12:00am June 17, 2023 3:21pm omeprazole 20 mg delayed release oral capsule (2 sources) Proton Pump Inhibitor Start: 12-31-2016 End: 06-17-2023 take 20 mg by mouth twice daily Omeprazole Discontinued 20 MG PO Twice daily 0 July 11, 2018 11:00pm June 17, 2023 3:21pm PARoxetine hydrochloride 20 mg oral tablet (2 sources) Serotonin Reuptake Inhibitor Start: 07-12-2018 End: 07-26-2018 take 40 mg by mouth once daily Paroxetine Hcl Discontinued 40 MG PO Daily 0 July 11, 2018 11:00pm July 26, 2018 9:21am Start: 12-31-2016 take 1 tablet by [facility] once daily Paroxetine Hcl (Paxil) 40 mg Tablet Active 1 TAB PO Daily December 30, 2016 11:00pm predniSONE 20 mg oral tablet (20 sources) Start: 06-16-2023 End: 06-17-2023 take 40 mg by mouth once daily Prednisone Discontinued 40 MG PO Daily June 16, 2023 12:00am June 17, 2023 3:22pm Start: 03-23-2023 take [facility] tablets [facility]-four hours predniSONE 20 MG 2 tablets Orally Once a day for 5 days tell pt to hold plavix on paxlovid - thanks Feb, Active Start: 06-01-2022 take 2 tablets by [facility] twenty-four hours predniSONE 20 MG 2 tablets Orally Once a day for 5 days May, Active Start: 10-25-2019 End: 06-17-2023 take 50 mg by mouth once daily Prednisone Discontinued 50 MG PO Daily 5 October 24, 2019 11:00pm June 17, 2023 3:22pm Start: 09-12-2018 End: 10-16-2018 take 40 mg by mouth once daily in the morning Prednisone Discontinued 40 MG PO Every morning 10 5 September 11, 2018 11:00pm October 16, 2018 10:24am administer with food or milk Start: 06-20-2018 End: 08-16-2018 take 5 mg by mouth once daily Prednisone Discontinued 5 MG PO Daily 0 July 11, 2018 11:00pm August 16, 2018 9:02am rivaroxaban 20 mg oral tablet (3 sources) Factor Xa Inhibitor Start: 08-05-2017 End: 08-16-2018 take 1 tablet by mouth once daily Rivaroxaban (Xarelto) 20 mg Tablet Discontinued 20 MG PO DAILY@1700 0 July 11, 2018 11:00pm August 16, 2018 9:02am Start: 12-31-2016 End: 08-05-2017 take 1 tablet by mouth twice daily Rivaroxaban (Xarelto) 15 mg Tablet Discontinued 15 MG PO Twice daily December 30, 2016 11:00pm August 05, 2017 2:53pm ticagrelor 90 mg oral tablet (1 source) Start: 08-12-2018 End: 09-12-2018 take 1 tablet by mouth twice daily Ticagrelor (Brilinta) 90 mg Tablet Discontinued 90 MG PO Twice daily 180 90 August 11, 2018 11:00pm September 12, 2018 9:48pm traMADol hydrochloride 50 mg oral tablet (1 source) Opioid Agonist Start: 12-31-2016 End: 08-05-2017 take 50 mg by mouth every six hours Tramadol Discontinued 50 MG PO Q6H December 30, 2016 11:00pm August 05, 2017 2:54pm Problems Active Problems Problem Classification Problem Date Documented Da te Episodic/Chronic Acute myocardial infarction (1 source) Myocardial infarction; Translations: [Non-ST elevation (NSTEMI) myocardial infarction] 04-07-2023 Chronic Administrative/social admission (7 sources) Follow-up status; Translations: [Other specified counseling] 04-07-2023 Episodic Cardiac dysrhythmias (20 sources) Cardiac arrhythmia; [...] breast prosthesis and implant, initial encounter] Episodic Complications of surgical procedures or medical care (2 sources) Non-healing surgical wound; Translations: [Other complications of procedures, not elsewhere classified, initial encounter] 08-10-2017 Episodic Congestive heart failure; nonhypertensive (10 sources) Left heart failure; Translations: [Left heart failure] Onset: 08-25-2018 08-11-2018 Chronic Coronary atherosclerosis and other heart disease (20 sources) 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; Translations: [Coronary arteriosclerosis] Onset: 08-25-2018 03-01-2023 Chronic Coronary atherosclerosis and other heart disease (10 sources) Stented coronary artery; Translations: [Percutaneous transluminal coronary angioplasty status] Onset: 02-26-2023 03-01-2023 Episodic Coronary atherosclerosis and other heart disease (1 source) Coronary atherosclerosis and other heart disease; Translations: [Atherosclerosis of sioux arteries of extremities with intermittent claudication, right leg] Onset: 11-17-2022 Deficiency and other anemia (8 sources) Anemia; Translations: [Anemia, unspecified] Onset: 05-19-2016 05-12-2023 Episodic Disorders of lipid metabolism (20 sources) Pure [...] foot; Translations: [Gangrene, not elsewhere classified] Episodic Genitourinary symptoms and ill-defined conditions (1 source) Retention of urine; Translations: [Retention of urine, unspecified] 04-07-2023 Episodic Immunizations and screening for infectious disease (14 sources) Patient encounter status; Translations: [Other specified vaccination] 04-07-2023 Episodic Inflammation; infection of eye (except that caused by tuberculosis or sexually transmitteddisease) (1 source) Unspecified acute conjunctivitis, bilateral Episodic Mood disorders (1 source) Depressive disorder; Translations: [Depression] 06-25-2018 Chronic Noninfectious gastroenteritis (1 source) Colitis; Translations: [Noninfective gastroenteritis and colitis, unspecified] 04-07-2023 Episodic Occlusion or stenosis of precerebral arteries (20 sources) Right carotid artery stenosis; Translations: [Occlusion and stenosis of right carotid artery] Chronic Open wounds of extremities (19 sources) 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 without complication; Translations: [Complete traumatic amputation at level between left hip and knee, initial encounter] Onset: 03-01-2023 03-01-2023 Chronic Open wounds of extremities (1 source) Laceration without foreign body, right lower leg, initial encounter Episodic Open wounds of extremities (1 source) Injury of upper extremity; Translations: [Unspecified open wound of left upper arm, initial encounter] 04-07-2023 Episodic Osteoarthritis (20 sources) Osteoarthrosis of the carpometacarpal joint of the thumb; Translations: [Osteoarthritis of first carpometacarpal joint, unspecified] Onset: 07-20-2013 Chronic Other aftercare (1 source) Other chcf (current) drug therapy; Translations: [OTH WINDING OPERATOR CURRENT DRUG THERAPY] Onset: 11-06-2020 Episodic Other aftercare (7 sources) Long-term current use of inhaled steroid; Translations: [care home (current) use of inhaled steroids] Episodic Other aftercare (7 sources) Long-term current use of anticoagulant; Translations: [care home (current) use of anticoagulants] Episodic Other aftercare (1 source) Postoperative visit; Translations: [Encounter for surgical aftercare following surgery on the circulatory system] 12-13-2023 Episodic Other bone disease and musculoskeletal deformities [...] unspecified] Onset: 11-07-2015 Chronic Other circulatory disease (1 source) Peripheral arterial occlusive disease; Translations: [Disorder of arteries and arterioles, unspecified] 07-26-2018 Chronic Other circulatory disease (1 source) History of arterial bypass of lower limb artery; Translations: [Presence of other vascular implants and grafts] 04-07-2023 Chronic Other circulatory disease (8 sources) Carotid [...] fall; Translations: [History of falling] Episodic Other liver diseases (1 source) Enzyme level - finding; Translations: [Elevated transaminase measurement] 04-07-2023 Episodic Other lower respiratory disease (14 sources) Dyspnea; Translations: [Shortness of breath] Onset: 02-26-2023 02-26-2023 Episodic Other lower respiratory disease (7 sources) Hemoptysis; Translations: [Hemoptysis] Episodic Other lower respiratory disease (1 source) Multiple nodules of lung; Translations: [Other nonspecific abnormal finding of lung field] 04-07-2023 Episodic Other nervous system disorders (1 source) Chronic pain syndrome; Translations: [CHRONIC PAIN SYNDROME] Onset: 08-23-2020 Chronic Other nervous system disorders (20 sources) Chronic pain; Translations: [Other chronic pain] 06-16-2023 Chronic Other nervous system disorders (20 sources) Mononeuropathy of lower limb; Translations: [Unspecified mononeuropathy of left lower limb] Chronic Other nervous system disorders (5 sources) Other chronic pain Chronic Other nervous system disorders (1 source) Peripheral nerve disease ; Translations: [Polyneuropathy, unspecified] 06-25-2018 Chronic Other nervous system disorders (14 sources) Abnormal gait; Translations: [Abnormality of gait] 04-07-2023 Episodic Other nutritional; endocrine; and metabolic disorders (7 sources) Body mass index 25-29 - overweight; Translations: [Body mass index (BMI) 28.0-28.9, adult] Episodic Other screening for suspected conditions (not mental disorders or infectious disease) (15 sources) Screening for malignant neoplasm of respiratory tract; Translations: [Encounter for screening for malignant neoplasm of respiratory organs] Onset: 06-01-2017 04-07-2023 Episodic Other skin disorders (1 source) Eruption; Translations: [Rash and other nonspecific skin eruption] 10-07-2018 Episodic Other upper respiratory infections (1 source) Acute maxillary sinusitis, unspecified Episodic Peripheral and visceral atherosclerosis (20 sources) Ischemic foot pain at rest; Translations: [Peripheral vascular disease, unspecified] Onset: 04-12-2023 Chronic Phlebitis; thrombophlebitis and thromboembolism (8 sources) History of thromboembolism of vein; Translations: [Personal history of other venous thrombosis and embolism] 06-25-2018 Episodic Pneumonia (except that caused by tuberculosis or sexually transmitted disease) (11 sources) Pneumonia; Translations: [Pneumonia, unspecified organism] Episodic Pulmonary heart disease (1 source) Pulmonary hypertension; Translations: [Pulmonary hypertension, unspecified] 08-11-2018 Chronic Residual codes; unclassified (8 sources) Dependence on [...] codes; unclassified (1 source) Disorientation, unspecified Episodic Residual codes; unclassified (1 source) Edema of left lower limb; Translations: [Localized edema] 07-26-2018 Episodic Respiratory failure; insufficiency; arrest (adult) (8 sources) Chronic respiratory failure; Translations: [Chronic respiratory failure with hypoxia] 09-12-2018 Chronic Respiratory failure; insufficiency; arrest (adult) (1 source) Respiratory failure; Translations: [Respiratory failure, unspecified, unspecified whether with hypoxia or hypercapnia] 08-11-2018 Episodic Screening and history of mental health and [...] with radiculopathy, lumbar region] Onset: 07-30-2020 Chronic Spondylosis; intervertebral disc disorders; other back problems (20 sources) Low back pain; Translations: [Radiculopathy, lumbar region] Onset: 10-16-2014 Episodic Substance-related disorders (7 sources) Drug-induced sleep disorder; Translations: [Other psychoactive substance use, unspecified with psychoactive substance-induced sleep disorder] Episodic Superficial injury; contusion (7 sources) Abrasion, lower leg; Translations: [Abrasion, right lower leg, initial encounter] Episodic Unclassified (1 source) CONTACT W/AND (SUSP) EXPOS COVID-19; Translations: [CONTACT W/AND (SUSP) EXPOS COVID-19] Onset: 10-04-2020 Unclassified (2 sources) Other persistent atrial fibrillation; Translations: [Other persistent atrial fibrillation] Onset: 04-12-2023 Urinary tract infections (1 source) Urinary tract infection, site not specified Episodic Past or Other Problems Problem Classification Problem Date Documented Date Episodic/Chronic Acute bronchitis (7 sources) Acute bronchitis; Translations: [Acute bronchitis, unspecified] Onset: 07-20-2013 Episodic Mood disorders (1 source) Mood disorders Onset: 08-07-2021 06-07-2022 Mycoses (7 sources) Candidiasis of skin and nails; Translations: [Candidiasis of skin and nails] Onset: 08-25-2018 Episodic Nonmalignant breast conditions (7 sources) Breast lump; Translations: [Lump or mass in breast] Onset: 12-17-2016 Episodic Other aftercare (1 source) care home (current) use of anticoagulants; Translations: [CARE HOME [...] skin and integumentary tissues] Onset: 11-18-2015 Episodic Unclassified (1 source) Onset: 03-01-2023 03-01-2023 Unclassified (1 source) Vaginal yeast infection B37.31 Unclassified (1 source) Lack of stamina; Translations: [Impaired endurance] 04-07-2023 Unclassified (1 source) Wound ; Translations: [Traumatic wound] 10-07-2018 Viral infection (1 source) COVID-19 Results Test Name Value Interpretation Reference Range Facility Office Visiton 07-06-2023 Follow-up visit [id number] Sanchez Merritt 1945 F Date Provider Department Center 07/06/2023 241-CHRIS MAGANA [facility] No family history on file Level of Service:10569 [place] OFFICE/OUTPATIENT NEW MODERATE MDM 45 MINUTES Normal [facility] Office Visiton 04-12-2023 Follow-up visit [id number] Sanchez Merritt 1945 F Date Provider Department Center 04/12/2023 159Nayana-VENKATMARINEJose OMKAR [facility] No family history on file Level of Service:64235 [place] OFFICE/OUTPATIENT ESTABLISHED MOD MDM 30 MIN Normal [facility] US UNI ankle/arm indiceson 0 12-17-2022 US UNI ankle/arm indices [facility] [place] [address] Ultrasound Report Signed Patient: Sanchez Merrtit MR#: [id number] : 1945 Acct:[id number] Age/Sex: 77 / F ADM Date: 11/17/22 Loc: [facility] Room: Type: [facility] Attending Dr: Margy Olivas SOLAR LAB TECHNICIAN-C Ordering Provider: Margy Olivas APRN Date of [...] Lauro Heard MD12/17/2022 2:11 PM Dictation Location: [id number] Tech: Julia Michele Transcribed By: BILLIE 12/17/22 1411 Dictated By: Lauro Heard MD 12/17/22 1410 Signed By: 12/17/22 1411 [facility] VAS LAB Carotid Artery Dupl ex Ultrasounon 04-13-2022 VAS LAB Carotid Artery Duplex Ultrasoun [address], [address] [place] [address] Vascular Lab Report Carotid Artery Duplex Ultrasound Patient Name: SANCHEZ Stacy Reading Physician: [id number] Ludwig South MD, 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, HTN, Hyperlipidemia, Former Smoker, Ischemic Cardiomyopathy, COPD, PTCA-07/2018 Procedure/CPT: 36354 Cerebrovascular Carotid Duplex scan complete-12500 CONCLUSIONS: Right Carotid: Findings are consistent with [...] cm/s Right Left ICA/CCA Ratio 0.5 0.8 [id number] Ludwig South MD, FACC Final Normal [facility] VAS LAB Carotid Artery Dupl ex Ultrasoundon 04-13-2022 US.doppler Carotid arteries [facility] [employer] [facility] Work Phone: Height or Weight NOT Doneon 02-26-2022 Fall risk assessment a) No falls within the last year [facility] [employer] 250 DO Work Phone: Tobacco use status CPHS b) No -[facility] [employer] 250 DO Work Phone: Office Visit (Cardiology)on [...] content not included)... Normal [facility] CARDIAC STRESS/REST INJE CTIONon 08-19-2021 [facility] CARDIAC STRESS/REST INJECTION Patient Name: SANCHEZ MERRITT STUDY: MYOCARDIAL PERFUSION STRESS TEST WITH LEXISCAN Performing facility: [facility], [address] [place] [address], [address], [place] [address] [facility] Provider: Tracey Pitt DO, FACC PCP: Dr. Young Lentz Supervising provider: Ludwig South MD, [facility] INDICATION: CAD; ICM SOB; HISTORY: Gender: F; Age: 76 y/o ; Height: 160.02 cm; Weight: 58.411260 kg. High Cholesterol; CAD; SOB; COPD; Quit smoking 12 years ago. Cardiac catheterization on 2019. PTCA on 2019. COMPARISON: No comparison. ACCESSION NUMBER(S): [id number]; [id number]; [id number] ORDERING CLINICIAN: TRACEY PITT TECHNIQUE: ONE DAY [...] Electronically signed by: GHULAM RIVERA MD Normal [facility] No Panel Informationon 08-19 Normal -[facility] 250 DO Work [...] Status:Hold For - Scheduling,Retrospecti ve Authorization; Requested for:[id number]; Radiologist to Determine Optimal Study : Y What are the patient's signs and symptoms? : SOB Health Maintenance PHQ2 Screen Positive; Status:Complete - Retrospective Authorization; Done: [id number] SocHx: Former smoker Tobacco Use Screening; Status:Complete; Done: [id number] Patient Instructions Please bring all medicines, vitamins, [...] of Percutaneous transluminal coronary angioplasty History of [employer]ODWORK[employer]ENCH [employer]PENTER carotid History of [employer] femoral-popliteal History of Tonsillectomy with adenoidectomy Past [...] HPI. Respiratory: (more content not included)... Normal [facility] Tobacco Screening.on 022 Adult depression screening assessment Yes -[facility] [place] [facility] 250 DO Work Phone: Fall risk assessment a) No falls within the last year [facility] 250 DO Work Phone: Tobacco use status [facility] b) No -[facility] 250 DO Work Phone: Tobacco Screening. 2-More than half the days -[facility] 250 DO Work Phone: Tobacco Screening. 1-Several days -[facility] 250 DO Work Phone: Tobacco Screening. 0-Not at all [facility] [place] [facility] 250 DO Work Phone: Tobacco Screening. 3-Nearly every day -[facility] [place] [facility] 250 DO Work Phone: Tobacco Screening. Somewhat Difficult -[facility] 250 DO Work Phone: Wily 05-23-2021 CNOV Office Visit (CONG ) SANCHEZ MERRITT ([id number]) 1945 F Date Time Provider Department 05/23/21 [...] interventional pain procedures: Seen pain management in [facility] Did an injection with no relief Dr Bella no longer sees this provider . Relevant [facility] records were reviewed. Adverse Reaction to Medication: [...] radicular pain. (more content not included)... Normal [facility] CNPNon 05-23-2021 [facility] Telephone ([facility]) SANCHEZ MERRITT ([id number]) 1945 F Date Time Provider Department 05/23/21 [...] be called to [facility] in [place]. States it was discussed at last OV. Please advise. Cleopatra King LPN 05/28/2021 11:50 AM Signed Called the patient and advised that normally Lien Hughes LPN 05/28/2021 12:02 PM Signed Tens unit was sent to [facility]. Cleopatra King LPN 05/28/2021 1:25 PM Signed Patient was notified that order was sent to [facility] and they would contact her. Allergies As [...] suspension Take 1 mL by mouth. - DAILY-APOLINAR, WITH FOLIC ACID, 400 mcg once daily. [...] Status:Closed by CLEOPATRA KING on 05/28/21 Normal [facility] Covid-19 PCR (CVDTBH)on SARS-CoV-2 (COVID-19) RNA MEENAKSHI+probe Ql (Unsp spec) Not detected Normal NOT DETECTED [facility] Comment on above: Result Comment: This test is not yet approved or cleared by the [place] FDA. When there are no FDA-approved or cleared tests available, and other criteria are met, FDA can make tests available under an emergency access mechanism called an Emergency Use Authorization (EUA). The EUA for this test is supported by the Organic Chemist of Health and Human Service's (HHS's) declaration [...] SARS-CoV-2. Performed By: #### C [facility] ####[facility] [id number] [place], [place] [address]ZomhtqAleida Marcial XR LSPINE W_OBLS AND FLEX_EX Ton 07-02-2020 [...] by: LORENA LATIF Date: 2020-07-02 15:09 Normal [facility] CT CHEST HI RESOLUTIONon CT CHEST [...] by: JOSIE PARIS Date: 2020-06-18 14:59 Normal [facility] XR CHEST 2 Von 02-29-2020 XR [...] by: JOSIE PARIS Date: 2020-02-29 09:04 Normal [facility] Vital Signs Date Time Vital Sign Value Performing Clinician Facility 06-17-2023 15:04-0500 Body height 156.21 cm [facility] 06-17-2023 15:04-0500 Body mass index (BMI) [Ratio] 24.1 kg/m2 [facility] 06-17-2023 15:04-0500 Body weight 58.96 kg [facility] 06-17-2023 15:04-0500 Diastolic blood pressure 81 mm[Hg] [facility] 06-17-2023 15:04-0500 Heart rate 98 /min [facility] 06-17-2023 15:04-0500 SaO2% (BldA) [Mass fraction] 95 % [facility] 06-17-2023 15:04-0500 Systolic blood pressure 131 mm[Hg] [facility] 04-29-2023 13:00-0500 Body height 156.21 cm John Lentz Other [facility] 04-29-2023 13:00-0500 Body mass index (BMI) [Ratio] 24.16 kg/m2 John Lentz Other [employer] Other 04-29-2023 13:00-0500 Body weight 58.97 kg John Lentz Other [employer] Other 04-29-2023 13:00-0500 Body weight 58.96 kg [facility] 04-29-2023 13:00-0500 Diastolic blood pressure 76 mm[Hg] John Lentz Other [facility] 04-29-2023 13:00-0500 SaO2% (BldA) [Mass fraction] 86 % John Lentz Other [employer] [facility] [employer] Other 04-29-2023 13:00-0500 Systolic blood pressure 109 mm[Hg] John Lentz Other [facility] 04-15-2023 15:45-0500 Body height 156.21 cm John Lentz Other [facility] 04-15-2023 15:45-0500 Body mass index (BMI) [Ratio] 24.16 kg/m2 John Lentz Other [employer] [facility] [employer] Other 04-15-2023 15:45-0500 Body weight 58.97 kg John Lentz Other [facility] [employer] Other 04-15-2023 15:45-0500 Body weight 58.96 kg [facility] 04-15-2023 15:45-0500 Diastolic blood pressure 72 mm[Hg] John Lentz Other [facility] 04-15-2023 15:45-0500 SaO2% (BldA) [Mass fraction] 95 % John Lentz Other [employer] [facility] [employer] Other 04-15-2023 15:45-0500 Systolic blood pressure 103 mm[Hg] John Lentz Other [facility] 04-06-2023 14:30-0500 Body height 156.21 cm [facility] 04-06-2023 14:30-0500 Body weight 58.96 kg [facility] 04-06-2023 14:30-0500 Diastolic blood pressure 78 mm[Hg] [facility] 04-06-2023 14:30-0500 Systolic blood pressure 132 mm[Hg] [facility] 03-01-2023 14:00-0500 Diastolic blood pressure 68 mm[Hg] Adelaida Hargrove MD Work Phone: [facility] 03-01-2023 14:00-0500 Heart rate 68 /min Adelaida Hargrove MD Work Phone: [facility] 03-01-2023 14:00-0500 Systolic blood pressure 110 mm[Hg] Adelaida Hargrove MD Work Phone: [facility] 10-20-2022 13:15-0400 Body height 156.21 cm Margy Carpenteremiliano Other [employer] Other 10-20-2022 13:15-0400 Body mass index (BMI) [Ratio] 24.16 kg/m2 Margy Carpenterprateekmaral Other [employer] Other 10-20-2022 13:15-0400 Body temperature 96.9 [degF] Margy Carpenterprateekmaral Other [employer] Other 10-20-2022 13:15-0400 Body weight 58.97 kg Margy Carpenteremiliano Other [employer] Other 10-20-2022 13:15-0400 Diastolic blood pressure 60 mm[Hg] Margy Carpenteremiliano Other [employer] Other 10-20-2022 13:15-0400 SaO2% (BldA) [Mass fraction] 93 % Margy Carpenteremiliano Other [employer] Other 10-20-2022 13:15-0400 Systolic blood pressure 110 mm[Hg] Margy Olivas Other [employer] Other 09-22-2022 10:00-0400 Body height 156.21 cm John Lentz Other [employer] Other 09-22-2022 10:00-0400 Body mass index (BMI) [Ratio] 24.16 kg/m2 John Lentz Other [employer] Other 09-22-2022 10:00-0400 Body weight 58.97 kg John Lentz Other [employer] Other 09-22-2022 10:00-0400 Diastolic blood pressure 68 mm[Hg] John Lentz Other [employer] Other 09-22-2022 10:00-0400 Systolic blood pressure 117 mm[Hg] John Lentz Other [employer] Other 06-01-2022 11:15-0500 Body height 156.21 cm John Lentz Other [employer] Other 06-01-2022 11:15-0500 Body mass index (BMI) [Ratio] 24.16 kg/m2 John Lentz Other [employer] Other 06-01-2022 11:15-0500 Body weight 58.97 kg John Lentz Other [employer] Other 06-01-2022 11:15-0500 Diastolic blood pressure 60 mm[Hg] John Lentz Other [employer] Other 06-01-2022 11:15-0500 SaO2% (BldA) [Mass fraction] 92 % John Lentz Other [facility] [employer] Other 06-01-2022 11:15-0500 Systolic blood pressure 102 mm[Hg] John Lentz Other [facility] [employer] Other 02-26-2022 15:00-0400 Body height 160.02 cm John Lentz Work Phone: [facility] 250 DO Work Phone: 02-26-2022 15:00-0400 Body mass index (BMI) [Ratio] Medical Reason Not Done John Lentz Work Phone: [facility] 250 DO Work Phone: 02-26-2022 15:00-0400 Diastolic blood pressure 60 mm[Hg] John Lentz Work Phone: [facility] 250 DO Work Phone: 02-26-2022 15:00-0400 Heart rate 80 /min John Lentz Work Phone: [facility] 250 DO Work Phone: 02-26-2022 15:00-0400 Systolic blood pressure 122 mm[Hg] John Lentz Work Phone: [facility] 250 DO Work Phone: 08-19-2021 12:00-0400 72 1 John Lentz Work Phone: [facility] 250 DO Work Phone: Comment on above: [id number] 08-07-2021 14:55-0400 Body height 160.02 cm John Lentz Work Phone: [facility] 250 DO Work Phone: 08-07-2021 14:55-0400 Diastolic blood pressure 68 mm[Hg] John Lentz Work Phone: [facility] 250 DO Work Phone: 08-07-2021 14:55-0400 Heart rate 89 /min John Kevin Abhijeet Work Phone: [facility] 250 DO Work Phone: 08-07-2021 14:55-0400 Systolic blood pressure 114 mm[Hg] John Lentz Work Phone: [facility] DO Work Phone: 08-07-2021 14:55-0400 10 1 John Lentz Work Phone: [facility] DO Work Phone: Comment on above: PHQ-9 TS Encounters Encounter Date Encounter Type Care Provider Facility Start: 07-06-2023 End: 07-06-2023 ambulatory [facility] Start: 06-17-2023 End: 06-17-2023 ambulatory [facility] Work Phone: Start: 06-17-2023 End: 06-17-2023 Patient encounter procedure [facility] Work Phone: Start: 06-07-2023 End: 06-07-2023 ambulatory John Lentz Other [employer] Other Start: 06-07-2023 Telephone encounter John Lentz [facility] Start: 05-17-2023 End: 05-17-2023 ambulatory John Lentz Other [employer] Other Start: 05-17-2023 Telephone encounter John Lentz [facility] Start: 04-30-2023 End: 04-30-2023 ambulatory John Lentz Other [employer] Other Start: 04-30-2023 Telephone encounter John Lentz [facility] Start: 04-29-2023 End: 04-29-2023 ambulatory John Lentz Other [employer] Other Start: 04-29-2023 Office outpatient vi sit 25 minutes John Lentz [facility] Start: 04-29-2023 Telephone encounter John Abhijeet [facility] Start: 04-29-2023 End: 04-29-2023 Patient encounter procedure [facility] Work Phone: Start: 04-27-2023 End: 04-27-2023 ambulatory John Lentz Other [employer] Other Start: 04-27-2023 Telephone encounter John Lentz [facility] Start: 04-15-2023 End: 04-15-2023 ambulatory John Lentz Other [employer] Other Start: 04-15-2023 Office outpatient vi sit 25 minutes John Lentz [facility] Start: 04-15-2023 End: 04-15-2023 Patient encounter procedure [facility] Work Phone: Start: 04-14-2023 End: 04-14-2023 ambulatory John Lentz Other [employer] Other Start: 04-14-2023 Telephone encounter John Lentz [facility] Start: 04-12-2023 End: 04-12-2023 ambulatory [facility] Start: 04-06-2023 End: 04-06-2023 Patient encounter procedure [facility] Work Phone: Start: 04-02-2023 End: 04-02-2023 ambulatory John Lentz Other [employer] Other Start: 04-02-2023 Telephone encounter John Lentz [facility] Start: 03-23-2023 (Televisit) Televisit John Uribe [facility] Start: 03-23-2023 End: 03-23-2023 ambulatory John Lentz Other [employer] Other Start: 03-22-2023 End: 03-22-2023 ambulatory John Lentz Other [employer] Other Start: 03-22-2023 Telephone encounter John Lentz [facility] Start: 03-01-2023 End: 03-01-2023 ambulatory [facility] Start: 03-01-2023 End: 03-01-2023 Office outpatient visit 25 minutes Adelaida Hargrove MD Work Phone: [facility] Comment on above: Arteriosclerosis of coronary artery (Primary Dx); Bilateral carotid bruits; Hyperlipidemia, unspecified hyperlipidemia type; Ischemic cardiomyopathy; Primary hypertension; Stented coronary artery; Chronic obstructive pulmonary disease, unspecified COPD type (CMS/HCC); Wheelchair dependent; Amputation of leg (CMS/HCC); History of right-sided carotid endarterectomy Start: 01-27-2023 End: 01-27-2023 ambulatory John Lentz Other [employer] Other Start: 01-27-2023 Telephone encounter John Lentz [facility] Start: 01-25-2023 End: 01-25-2023 ambulatory John Lentz Other [employer] Other Start: 01-25-2023 Telephone encounter John Lentz [facility] Start: 01-08-2023 End: 01-08-2023 ambulatory John Lentz Other [employer] Other Start: 01-08-2023 Telephone encounter John Lentz [facility] Start: 12-02-2022 End: 12-02-2022 ambulatory John Lentz Other [employer] Other Start: 12-02-2022 Telephone encounter John Lentz [facility] Start: 11-17-2022 End: 11-17-2022 ambulatory Margy Olivas Facility:[facility] Start: 10-20-2022 End: 10-20-2022 ambulatory Margy Olivas Other [employer] Other Start: 10-20-2022 FQHC visit new patient Margy alicia [facility] Start: 09-23-2022 End: 09-23-2022 ambulatory John Lentz Other [employer] Other Start: 09-23-2022 Telephone encounter John Lentz [facility] Start: 09-22-2022 End: 09-22-2022 ambulatory John Lentz Other [employer] Other Start: 09-22-2022 Office outpatient vi sit 25 minutes John Lentz [facility] Start: 09-22-2022 Telephone encounter John Lentz [facility] Start: 08-13-2022 Rx Renewal John Lentz Work Phone: [facility] 250 DO Work Phone: Start: 07-15-2022 End: 07-15-2022 ambulatory John Lentz Other [employer] Other Start: 07-15-2022 Telephone encounter John Lentz [facility] Start: 06-01-2022 End: 06-01-2022 ambulatory John Lentz Other [employer] Other Start: 06-01-2022 Office outpatient vi sit 25 minutes John Lentz [facility] Start: 05-05-2022 End: 05-05-2022 ambulatory Jonh Lentz Other [employer] Other Start: 05-05-2022 Telephone encounter John Lentz [facility] Start: 04-17-2022 Chart Update John Lentz Work Phone: [facility] 250 DO Work Phone: Start: 04-13-[address] Adelaida Griggs ty:[id number] Start: 02-26-2022 Office outpatient vi sit 25 minutes John Lentz Work Phone: [facility] 250 DO Work Phone: Start: 02-26-[address] Adelaida Griggs ty: Start: 12-12-2021 Pre-procedure evalua tion check John Lentz Other [facility] [employer] Other Start: 09-11-2021 Rx Renewal John Lentz Work Phone: [facility] 250 DO Work Phone: Start: 09-08-2021 Rx Renewal John Lentz Work Phone: [facility] DO Work Phone: Start: 09-01-2021 Chart Update John Lentz Work Phone: [facility] 250 DO Work Phone: Start: 08-19-[address] Tracey Pitt Facility:[id number] Start: 08-07-2021 Office outpatient vi sit 25 minutes John Lentz Work Phone: [facility] 250 DO Work Phone: Start: 08-07-[address] John Lentz Facility: Start: 07-21-2021 Rx Renewal John Lentz Work Phone: [facility] 250 DO Work Phone: Start: 01-14-2021 ambulatory [...] for preprocedural laboratory examination DR DORA BELLA [facility] Start: 10-01-2020 End: 10-01-[address] [...] Work Phone: Depression screening John Lentz Other H/O: surgery History of fasciotomy Percutaneous transluminal angioplasty of carotid artery John Lentz Work Phone: Percutaneous transluminal coronary angioplasty John Lentz Work Phone: Tonsillectomy and adenoidectomy John Lentz Work Phone: Total colonoscopy John wagner Work Phone: Comment on above: 15Oct2018; Plan of Treatment Date Care Activity Detail Author Start: 08-16-2028 DTaP/Tdap/Td Vaccine s (2 - Td or Tdap) DTaP/Tdap/Td Vaccines (2 - Td or Tdap) [facility] Start: 11-08-2023 End: 11-08-2023 Patient encounter procedure 11/08/2023 1:15 PM EDT Office Visit [facility] [address] [facility] [address] [place] [address] Adelaida Hargrove MD [address] [place] [address] [address] [place], [place] [id number] [facility] Start: 03-01-2023 FUV, Provider: Adelaida Hargrove, Status: Pen, Time: 2:00 PM FUV, Provider: Adelaida Hargroev, Status: Pen, Time: 2:00 PM [facility] 250 DO Work Phone: Start: 03-01-2023 End: 03-01-2024 Comprehensive metabolic 2000 panel - Serum or Plasma Comprehensive Metabolic Panel Lab Routine Arteriosclerosis of coronary artery Primary hypertension Stented coronary artery Expected: 03/01/2023 (Approximate), Expires: 03/01/2024 [facility] Work Phone: Comment on above: Expected: 03/01/2023 (Approximate), Expires: 03/01/2024 Start: 03-01-2023 End: 03-01-2024 Lipid 1996 panel - Serum or Plasma Lipid Panel Lab Routine Hyperlipidemia, unspecified hyperlipidemia type Expected: 03/01/2023 (Approximate), Expires: 03/01/2024 [facility] Work Phone: Comment on above: Expected: 03/01/2023 (Approximate), Expires: 03/01/2024 Start: 12-25-2022 Influenza vaccination Influenza Vacc ine (#1) [facility] Start: 04-13-2022 CAROTID, Provider: [facility]TRASOUND 01,[id number], Status: Pen, Time: 10:45 AM CAROTID, Provider: [facility] ULTRASOUND 01,[id number], Status: Pen, Time: 10:45 AM [facility] Work Phone: Start: 04-13-2022 ECHO, Provider: [facility] ULTRASOUND 01,[id number], Status: Pen, Time: 10:45 AM ECHO, Provider: [facility]TR[facility] 01,[id number], Status: Pen, Time: 10:45 AM [facility] 250 DO Work Phone: Start: 01-29-2022 FUV, Provider: Adelaida Hargrove, Status: Pen, Time: 1:00 PM FUV, Provider: Adelaida Hargrove, Status: Pen, Time: 1:00 PM [facility] 250 DO Work Phone: Start: 08-19-2021 STRESS NUC, Provider : [facility] NUCLEAR 01,[id number], Status: Pen, Time: 12:00 PM STRESS NUC, Provider: [facility] NUCLEAR 01,[id number], Status: Pen, Time: 12:00 PM [facility] 250 DO Work Phone: Start: 08-07-2021 FUV, Provider: Tracey Pitt, Status: Pen, Time: 2:45 PM FUV, Provider: Tracey Pitt, Status: Pen, Time: 2:45 PM [facility] 250 DO Work Phone: Start: 06-08-2021 COVID-19 Vaccine (4 - Moderna series) COVID-19 Vaccine (4 - Moderna series) [facility] Start: 11-24-2018 Pneumococcal Vaccine : 65+ Years (2 - PPSV23 or PCV20) Pneumococcal Vaccine: 65+ Years (2 - PPSV23 or PCV20) [facility] Start: 1993 Zoster Vaccines (1 o f 2) Zoster Vaccines (1 of 2) [facility] Start: 1961 Diabetes mellitus screening Diabetes Screening [facility] Start: 1961 Hepatitis C screening Hepatitis C Sc reerylan [facility] Start: 1943 Lipid panel Lipid Panel [facility] Start: 1943 Medicare Annual Wellness Visit Medicare Annual Wellness Visit (AWV) [facility] Start: 1943 Screening for osteoporosis Bone Density Scan [facility] XR Chest 2 Views [facility] Immunizations Immunization Date Immunization Notes Care Provider Fa cility 04-13-2021 Pfizer-BioNTech COVID-19 Vacc 30 MCG/0.3ML Intramuscular Suspension John Lentz Work Phone: [facility] 07-02-2020 Moderna COVID-19 Vaccine 100 MCG/0.5ML Intramuscular Suspension John Lentz Work Phone: [facility] 06-03-2020 Moderna COVID-19 Vaccine 100 MCG/0.5ML Intramuscular Suspension John Lentz Work Phone: [facility] 09-29-2018 pneumococcal conjuga te vaccine, 13 valent John Lentz Work Phone: [facility] [employer] 400 DO Work Phone: 08-16-2018 tetanus toxoid, redu luis diphtheria toxoid, and acellular pertussis vaccine, adsorbed Adelaida Hargrove MD Work Phone: [facility] Work Phone: 02-16-2017 influenza virus vaccine, split virus (incl. purified surface antigen) John Lentz Other [employer] Other 02-16-2017 influenza, high dose seasonal, preservative-free John Lentz Work Phone: [facility] [employer] 870 DO Work Phone: 02-16-2017 influenza virus vaccine, unspecified formulation Adelaida Hargrove MD Work Phone: [facility] 01-24-2017 influenza virus vaccine, unspecified formulation John Lentz Work Phone: [place] [address] DO Work Phone: 01-25-2016 influenza virus vaccine, split virus (incl. purified surface antigen) John Lentz Other [facility] [employer] Other 01-25-2016 influenza virus vaccine, unspecified formulation [facility] 01-25-2016 influenza, high dose seasonal, preservative-free John Lentz Work Phone: [place] [address] DO Work Phone: 03-02-2015 influenza, injectabl e, quadrivalent, preservative free John Lentz Work Phone: [place] [address] DO Work Phone: 03-02-2015 tetanus and diphther ia toxoids, adsorbed, preservative free, for adult use (5 Lf of tetanus toxoid and 2 Lf of diphtheria toxoid) John Lentz Other [facility] 02-12-2009 pneumococcal conjuga te vaccine, 7 valent John Lentz Work Phone: [place] [address] DO Work Phone: 01-30-2009 influenza virus vaccine, whole virus John Lentz Work Phone: [place] [address] DO Work Phone: Payers Date Payer Category Payer Unknown [id number] 2017 Medicaid [id number] 2016 Unknown 2016 Unknown [id number] 2008 Medicare MEDICARE MEDICAR E PART A AND B [id number] 2008-Present [address] [place] [address] [id number] 1959 Medicare [id number] 1959 Self-pay 1959 Unknown [id number] 1943 Unknown [id number] [id number] 1943 Unknown [id number] 2.16.840.1.853910.3.579.2.593 1943 Unknown [id number] 2.16.840.1.339097.3.579.2.593 1943 Unknown [id number] 2.16.840.1.804638.3.579.2.593 1943 Unknown [id number] 2.16.840.1.482436.3.579.2.593 1943 Unknown [id number] 2.16.840.1.969455.3.579.2.593 1943 Unknown [id number] 2.16.840.1.729358.3.579.2.593 1943 Unknown [id number] 2.16.840.1.260431.3.579.2.593 1943 Unknown [id number] 2.16.840.1.723495.3.579.2.593 1943 Unknown [id number] 2.16.840.1.786083.3.579.2.593 1943 Unknown [id number] 2.16.840.1.009148.3.579.2.593 1943 Unknown [id number] 2.16.840.1.484759.3.579.2.593 1943 Unknown [id number] 2.16.840.1.790538.3.579.2.593 1943 Unknown [id number] 2.16.840.1.919035.3.579.2.593 1943 Unknown [id number] 2.16.840.1.722471.3.579.2.356 1943 Unknown [id number] 2.16.840.1.713222.3.579.2.356 1943 Unknown [id number] 2.16.840.1.266841.3.579.2.8 1943 Unknown [id number] 2.16.840.1.148537.3.579.2.1068 1943 Unknown [id number] 2.16.840.1.843893.3.579.2.1244 Unknown [id number] 2.16.840.1.114885.3.579.2.593 Unknown [id number] 2.16.840.1.148947.3.579.2.593 Unknown [id number] 2.16.840.1.487184.3.579.2.531 Social History Date Type Detail Facility Start: 08-07-2021 End: 03-01-2023 Daily caffeine consumption, 2-3 servings a day Daily caffeine consumption, 2-3 servings a day [facility] Comment on above: Quit cigs 2009; 1 cup of coffee harshil y; Start: 08-07-2021 End: 03-01-2023 Sex Assigned At [facility] Start: 10-20-2022 End: 03-01-2023 Tobacco smoking status NHIS Ex-smoker [facility] End: 04-26-2009 History of tobacco use Current smoker [facility] Work Phone: End: 04-26-2009 History of tobacco use Cigarette Smoker [facility] Work Phone: Start: 03-01-2023 Tobacco use and exposure Smokeless tobacco non-user [facility] Work Phone: Start: 03-01-2023 Alcohol intake Lifetime non-d annemarie (finding) [facility] Work Phone: Start: 1945 Sex Assigned At Not on file [facility] Work Phone: Start: 02-19-2023 End: 03-01-2023 Exposure to SARS-CoV-2 (event) Not sure [facility] Start: 1945 Sex Assigned At Female F [facility] Medical Equipment Procedure Code Equipment Code Equipment Origin al Text Equipment Identifier Dates Endarterectomy, carotid GRAFT PATCH [id number] X 3 FDA Start: 05-14-2017 CL CLOSURE DEVIC E EXOSEAL 6F FDA Start: 08-12-2018 CL STENT BOBBI 3. 5 X 26 FDA Start: 08-12-2018 CL STENT BOBBI 4. 0 X 12 FDA Start: 08-12-2018 GRAFT PATCH [id number] X 3 FDA Start: 07-29-2017 IR STENT BLUE 6 X 15 80CM FDA Start: 06-20-2018 Functional Status Date Assessment Result Facility 08-07-2021 PHQ-9 [id number] Moderate (10-14) [facility] 250 DO Work Phone: Clinical Notes 07-25-2018 to 07-06-2023 Note Date & Type Note Facility 07-06-2023 Note [place] Electrophysiology Consult Note Reason for visit: afib, CAD HPI: Sanchez Merritt is a 78 y.o. year old with past medical history of tobacco abuse quit in 2009, PAD vascular disease in [...] follow-up with cardiology and is switching to [facility]. She was admitted to [facility] with new onset A-fib, alcohol withdrawal which was treated with benzodiazepines, sepsis, respiratory failure, COPD exacerbation all likely due to COVID infection, she was discharged 04/01/2023. 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 She states she has stopped drinking since her hospital admission. she is asymptomatic of her A-fib and denies any chest pain, worsening shortness of breath than her baseline, palpitations, racing heart. she does have chronic mild lower extremity edema of right lower extremity which is stable and she is on Aldactone. Omkar GABRIELLA Fernandez stopped lisinopril, carvedilol, and aspirin at last apt in Mar 2023. He started her on Eliquis and metoprolol. She's taking lasix daily and is c/o severe RLE edema. Daughter states she does not have any spironolactone or plavix at home, and hasn't been taking them. Had CT chest last week Which revealed a large right pleural effusion with secondary loculated components and moderate-sized area of atelectasis within the right upper lobe. She had recently seen Dr Royal and plan was on observation. Unaware of they knew the CT chest results. She is still SOB with no significant improvement. ECG 04/12/2023 A-fib heart rate in the [...] Connections: Not on file Intimate Partner Violence: Unknown (06/18/2023) [place] [employer] [facility] Fear of Current or Ex-Partner: Not on file Emotionally Abused: Not on file Physically Abused: Not on file Sexually Abused: Not on file Physically or Sexually Abused: Not on file Depression: Not on file Housing Stability: Not on file Utilities: Not on file Allergies: Allergies Allergen Reactions Bacitracin Itching Neomycin Itching Polymyxin B Sulfate-Hc Itching Vancomycin Hives and Itching Weight: No weight available Visit Vitals BP 127/80 (BP Location: Right arm, Patient Position: Sitting) Pulse 86 Ht 1.6 m (5' 3 ) SpO2 (!) 87% Comment: on 2L O2 BMI 23.03 kg/m??? BSA 1.62 m??? Meds: Current Outpatient Medications on File Prior to Visit Medication Sig Dispense Refill albuterol 90 mcg/actuation inhaler Inhale 1 puff every 4 (four) hours if needed. apixaban (Eliquis) 2.5 mg tablet Take 1 tablet (2.5 mg) by mouth in the morning and at bedtime. 45 tablet 11 atorvastatin (Lipitor) 40 mg tablet Take 1 tablet (40 mg) by mouth in the morning. 30 tablet 3 DULoxetine (Cymbalta) [address] capsule Take 60 mg by mouth in the morning. furosemide (Lasix) 20 mg tablet Take 20 mg by mouth in the morning. gabapentin (Neurontin) 800 mg tablet Take 800 mg by mouth in the morning, afternoon, and at bedtime. metoprolol succinate XL (Toprol-XL) 25 mg 24 hr tablet Take 1 tablet (25 mg) by mouth in the morning. Do not crush or chew. 30 tablet 11 nitroglycerin (Nitrostat) 0.[address] 0.4 mg under the tongue. pantoprazole (ProtoNix) 40 mg EC tablet Take 40 mg by mouth in the morning. Symbicort 160-4.5 mcg/actuation inhaler tiZANidine (Zanaflex) 4 mg tablet Take 4 mg by mouth in the morning. clopidogrel (Plavix) 75 mg tablet Take 75 mg by mouth in the morning. spironolactone (Aldactone) 25 mg tablet Take 25 mg by mouth in the morning. No current facility-administered medications on file prior to visit. ROS: Review of Systems Cardiovascular: Positive for dyspnea on exertion and leg swelling (RLE). Respiratory: Positive for cough and shortness of breath. All other systems reviewed and are negative. Physical Exam: Constitutional General Appearance: well-nourished, well-developed, appears stated age Level of Distress: comfortable Psychiatric Mental Status: alert, normal affect Gordo (more content not included)... [facility] 06-07-2023 Evaluation note Encounter Date Diagnosis Assessment Notes May, COPD, moderate (ICD-10 - J44.9) [employer] Other 01-22-2024 Evaluation note* Encounter Date Diagnosis Assessment Notes Treatment Notes Treatment Clinical Notes Apr, Chronic obstructive pulmonary disease, unspecified COPD type (ICD-10 - J44.9) [employer] Other 01-05-2024 Evaluation note* Encounter Date Diagnosis Assessment Notes Treatment Notes Treatment Clinical Notes Apr, Chronic obstructive pulmonary disease, unspecified COPD type (ICD-10 - J44.9) [facility] [facility] Other 01-04-2024 Evaluation note* Encounter Date Diagnosis Assessment Notes Treatment Notes Treatment Clinical Notes Apr, Chronic pain (ICD-10 - G89.29) [facility] [facility] Other 01-04-2024 Evaluation note* Encounter Date Diagnosis [...] to AKA history. Sees pain managment in [place] Apr, Pneumonia, unspecified organism (ICD-10 - J18.9) Pulmonolary consult. Improving. Apr, Nosocomial condition (ICD-10 - Y95) Apr, Atrial fibrillation with RVR (ICD-10 - I48.91) presently in regular rhythm [facility] Other 12-21-2023 Evaluation note* Encounter Date Diagnosis Assessment Notes Treatment Notes Treatment Clinical Notes Mar, Acute UTI (ICD-10 - N39.0) UA will be taken to hospital Pt cannot provide UA presently. We suspect UTI due to her recent confustion. Order printed and given to daughter. She will take it to [facility] when she goes to work tomorrow. Mar, Cellulitis of right leg (ICD-10 - L03.115) Patient is advised to stay well hydrated. Finish the full antibiotic until gone. Patient is advised to add a probiotic to their diet such as yogurt. Follow up to let us know if symptoms have improved Mar, Chronic constipation (ICD-10 - K59.09) samples of miralax given [facility] Other 12-20-2023 Evaluation note* Encounter Date Diagnosis Assessment Notes Treatment Notes Treatment Clinical Notes Mar, Confusion (ICD-10 - R41.0) [facility] [facility] Other 12-18-2023 [facility]-stable, concerns for hypotension given first BP in office [facility]-recovered EF per recent echo 03/2023 EF 55-60% -NYHA unable to asses given wheel chair bound and left AKA< she does state she is able to do basic ADLs -GDMT: stop lisionpril given hypotension, stop coreg, Will start toprol xl 25mg daily and do event monitor to watch for RVR -prioritizing rate control at this time -continue aldactone 25mg, start toprol xl [facility]mgUnT[facility]12-18-2023 Note-s/p left [facility]AUnivers[facility]12-[facility]-2023 Note-noted in hx, [facility] Note-s/p stent to RCA and ostial left main in 2019 -will increase to high intensity statin 40mg lipitor given she is done drinking -stop ASA and start eliquis 2.5mg BID for AF, ct plavix -noted to not be a good candidate for CABG given resp diseaseUnTwin City [facility]12-18-2023 Note- stable, she is on supplemental O2 as needed - she may not be a great candidate for amiodaroneUniversThe [facility]12-18-2023 NoteNew patient here to establish care. She was recently discharged from [facility] for new onset afib. AC was not started. She has a right carotid stent that was placed years ago at [facility]. She does not still follow with vascular surgeon. She is transferring cardiology care from [facility] to [place]. Review of Systems Cardiovascular: Positive for dyspnea on exertion and leg swelling (RLE). Respiratory: Positive for cough and shortness of breath. All other systems reviewed and are negative.[facility] 04-12-2023 NoteUT Electrophysiology Consult Note Reason [...] follow-up with cardiology and is switching to [facility] She was admitted to [facility] with new onset A-fib, alcohol withdrawal which was treated with benzodiazepines, sepsis, respiratory failure, COPD exacerbation all likely due to COVID infection, she was discharged 04/01/2023. 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 She states she has stopped drinking since [...] feeling safe in r (more content not included)...[facility]11-28-2023 Evaluation note* Encounter Date Diagnosis Assessment [...] such as patterns or other associated symptoms [facility] [employer] Other 11-27-2023 Evaluation note* Encounter Date Diagnosis Assessment Notes Treatment Notes Treatment Clinical Notes Feb, Chronic pain (ICD-10 - G89.29) [facility] Other 11-06-2023 History of Present illness Narrative* [...] List Diagnosis Date Noted Amputation of leg ([facility] 03/01/2023 History of right-sided carotid endarterectomy 03/01/2023 Arteriosclerosis of coronary artery 02/26/2023 Bilateral carotid bruits 02/26/2023 Chronic obstructive pulmonary disease ([facility]) 02/26/2023 Hyperlipidemia 02/26/2023 Ischemic cardiomyopathy 02/26/2023 Primary [...] vertebral flow Problems addressed today included atherosclerotic sioux vessel coronary artery disease, hyperlipidemia, cerebrovascular disease, [...] MONTHS Adelaida Hargrove MD [facility] Work Phone: 1(203) 294-932511-06-2023 Instructions* Patient Instructions* Tran Morales LPN - [...] your visit. [facility] Work Phone: 1(301) 724-269806-27-2023 Evaluation note* Encounter Date Diagnosis Assessment Notes [...] discussion, agrees with plan, denies any questions. [facility] Other 05-30-2023 Evaluation note* Encounter Date Diagnosis Assessment Notes Treatment Notes Treatment Clinical Notes August, Acute bacterial conjunctivitis of both eyes (ICD-10 - H10.33) [place] [facility] is contagious. Wash hands frequently and try not to rub eyes. Use warm wash cloth to keep them clean or to remove discharge from eyes. Use drops until eyes are clear then 3 more days August, PAD (peripheral artery disease) (ICD-10 - I73.9) Pt agrees to referral to [facility]. 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 She is established w pain management for this problem August, Acute non-recurrent maxillary sinusitis (ICD-10 - J01.00) agrees to antibiotic for sore throat. August, History of left abov e knee amputation (ICD-10 - Z89.612) August, Chronic pain (ICD-10 - G89.29) Reviewed OARRS report. Refilled rx. [facility] Other 05-30-2023 Evaluation note* Encounter Date Diagnosis Assessment Notes Treatment Notes Treatment Clinical Notes August, Chronic pain (ICD-10 - G89.29) [facility] Other 02-06-2023 Evaluation note* Encounter Date Diagnosis [...] S81.811A) Continue to cover and monitor area. Doug resendez fell on her leg and it is tender. May, Lumbar degenerative disc disease (ICD-10 - M51.36) chronic pain due to lumbar issues and BKA amputation. will call when pain med refill is needed. [facility] Other 04-14-2022 History of Present illness Narrative* [...] really any change to her pulmonary status. [facility] [address] DO Work Phone: 1(484) 846-244504-14-2022 History of Present illness Narrative* Previously seen [...] Ejection fraction is typically been estimated at txsbpu07%. She indicates that her breathing has progressively [...] profile lipid profile prior to next visit. -[facility] 250 DO Work Phone: 1(677) 565-211304-14-2022 History of Present illness Narrative* Previously seen [...] Ejection fraction is typically been estimated at uqyrdg63%. She indicates that her breathing has progressively [...] lipid profile prior to next visit. [facility] Work Phone: 1(532) 560-561101-28-2022 NoteHNO ID: [id number] Author: Chavez Dillard MD Service: ? Author [...] interventional pain procedures: Seen pain management in [facility] Did an injection with no relief [...] and negative other than HPI. Scribe attestation: Jose Emmabelén Roca LPN (May 23, 2021 10:13 [...] reproduction bilaterally. Extremities: Peripheral (more content not included)...[facility] 12-09-2020 NotePROCEDURE: MRI THIGH LT [...] Electronically authenticated by: JOSIE PARIS Date: 2020-12-09 16:49[facility]08-05-2021 NoteHISTORY AND PHYSICAL EXAMINATION HISTORY: This [...] be doing so in the near future. [facility] Signed and Approved by: ROXI MCCLENDON 11/28/2020 09:43:00[facility]08-05-2021 NoteOPERATIVE NOTE OPERATION DATE: 11-28-20 ANESTHETIC: [...] was injected into the anterior chamber and [facility] cell sponge was used to check the wounds to be water tight. One drop of apraclonidine and 1 drop of prednisolone acetate were placed into the eye and shield was placed over top. The patient was sent to the postoperative area in satisfactory condition to followup the following day for postoperative care. [facility] Signed and Approved by: ROXI MCCLENDON 12/26/2020 11:09:00[facility]07-06-2021 NotePAIN MANAGEMENT Consultation Date: 10-29-20 CHIEF [...] periosteum of the femur. cc:Dr. John Lentz. [facility] Signed and Approved by: DR DORA BELLA 11/05/2020 12:13:00[facility]07-01-2021 NoteHISTORY AND PHYSICAL EXAMINATION HISTORY: The [...] and go forward with her elective procedure. [facility] Signed and Approved by: ROXI MCCLENDON 10/24/2020 11:46:00[facility]07-01-2021 NoteOPERATIVE NOTE OPERATION DATE: 10-24-20 ANESTHETIC: [...] was injected into the anterior chamber and [facility] cell sponge was used to check the wounds to be water tight. One drop of apraclonidine and 1 drop of prednisolone acetate were placed into the eye and shield was placed over top. The patient was sent to the postoperative area in satisfactory condition to followup the following day for postoperative care. [facility] Signed and Approved by: ROXI MCCLENDON 11/27/2020 16:58:00[facility]06-22-2021 NotePAIN MANAGEMENT Consultation Date: 10-15-20 CHIEF COMPLAINT: Left tjudg-oxl-qqir amputation stump pain. HISTORY OF PRESENT ILLNESS: [...] 2. Lumbar spondylosis. 3. Status post left iqqpx-hcy-pcyw amputation 2018. 4. Stump pain. 5. Neuromatous [...] daughter understand and would like to proceed. [facility] Signed and Approved by: DR DORA BELLA 10/29/2020 10:44:00[facility]06-22-2021 NotePAIN MANAGEMENT PROCEDURE NOTE Date: 10-15-20 PRE AND POST PROCEDURE DIAGNOSIS: Neuromatous stump pain, neuromatous pain status post left mvzna-blk-fkbw amputation. PROCEDURE NAME:Neuroma stump injection. PROCEDURE: Subsequent [...] pain symptomatology that would have been present. [facility] Signed and Approved by: DR DORA BELLA 10/29/2020 10:44:00[facility]04-26-2021 NotePAIN MANAGEMENT Consultation Date: 08-19-20 HISTORY [...] baclofen. Of note, the patient is on long term care phlebotomist anticoagulant medication, Plavix. On July 30 the [...] her pain. Dictated by Hemant Red APRN [facility] Signed and Approved by: HEMANT RED 08/26/2020 16:35:00[facility]03-08-2021 NoteCONSULTATION Consultation Date: 07/01/2020 PAIN MANAGEMENT CONSULTATION HISTORY OF PRESENT ILLNESS: This is a very pleasant 75-year-old female patient who comes to the [facility] for the very first time. [...] had stents July of 2018 at [facility]. Originally the patient was placed on Plavix [address] Arnold; however, Dr. Pitt in [place] took over the Plavix medication. The patient [...] the lumbar x-ray is without any deformities. [facility] Signed and Approved by: HEMANT RED 07/08/2020 17:02:00[facility]03-08-2021 NoteCONSULTATION Procedure Date: 07/01/2020 PROCEDURE NOTE: [...] signs were obtained and were stable. . [facility] Signed and Approved by: HEMANT RED 07/08/2020 17:03:00[facility]04-01-2019 History of Present illness Narrative* Mrs. [...] Ejection fraction is typically been estimated at iloyjc70%. She indicates that her breathing has progressively [...] is completed. No change made to medications. -[facility] [address] DO Work Phone: Evaluation noteNo [facility] [employer] Other Evaluation note* Diagnosis Arteriosclerosis of coronary [...] endarterectomy documented in this encounter [facility] Work Phone: Evaluation note* Diagnosis Onset Date Resolution Status Pneumonia acute [facility] Work Phone: History general Narrative - Reported* Type Description Date Medical History High Cholesterol Medical History Depression Medical History COPD Medical History Congestive Heart Failure Surgical History Breast Augmentation 1983 Surgical History Hyster 1985 Surgical History Shoulder- Cuff Surgery-right 19 Surgical History hemorrhoidectomy 1974 Surgical History Left [...] Hospitalization History Suicide Hospitalization History See above [facility] Other History general Narrative - Reported* Type [...] Hospitalization History Suicide Hospitalization History See above [facility] Other Reason for referral (narrative)* Consultation (Routine) - Authorized Specialty Diagnoses / Procedures Referred By Nabilaac t Referred To Contact Cardiology Diagnoses Arteriosclerosis of coronary artery Procedures Follow Up In Cardiology Adelaida Hargrove MD [address] [facility] [place] [address] Adelaida Hargrove MD [address] [place] [address] Referral ID Status Reason Start Date Expiration Date V isits Requested Visits Authorized [id number] Authorized 03/01/2023 02/29/2024 1 1 [facility] Work Phone: Summary Purpose Family History No Family History Records FoundUnknown Family Member Name Dates Details Family history [...] of cardiac pa cemaker: Sister(V17.49, Z82.49) Status:Active Relationship Condition Age at Onset Recorded Date/T cuauhtemoc brother Diabetes mellitus Unknown father Unknown Not Specified Unknown sister Heart disease Unknown Advance Directives No Advanced Directives Records Found Advance Directive Response Recorded Date/ Time Advance Directives No October 20 3:09pm Chief Complaint SANCHEZ MERRITT is being seen for a 6 month follow-up of.SANCHEZ BROWN is being seen for a 6 month follow-up of.SANCHEZ BROWN is being seen for a 6 month follow-up of.SANCHEZLAMAR MERRITT is being seen for a 6 month follow-up of. Reason for Referral Reason *FU 05/12 followup COPD, recent pneumonia, on oxygen. Diagnosis 1 Chronic obstructive pulmonary disease, unspecified COPD type (J44.9) Referral Organization [facility] Referring Provider First Name John Referring Provider Last Name Abhijeet Referring Provider Specialty Family [facility] Referred Organization [facility] Referred Provider Tahir Royal Referred Address [address], [place],[address] Referred Provider Specialty Pulmonary Di seases Referral Priority Routine General Notes Dai Aaron 07:48:28 AM >received today, attachments made, notes locked, referral faxed Clinical Notes p: [phone] f: [phone] Reason *Waiting for appt Former pt of Dr. Mejia - now has swelling and discoloration in R lower leg. Hx of L AKA Diagnosis 1 PAD (peripheral yuli ry disease) (I73.9) [facility]erral [facility] Referring Provider First Name John Referring Provider Last Name Abhijeet Referring Provider Specialty Family [facility] Referred Organization [facility] [place] Referred Provider Jaspreet Ventura Referred Address [address] [facility] [address], [place],[phone] Referred Provider Specialty Vascular April christianne Referral Priority Routine General Notes Dai Aaron 01:06:20 PM >received today, faxed P2P Chief Complaint and Reason for Visit Chief Complaint Tbh Follow Up Wound On Knee Tbh tbh follow up Reason for Visit Pneumonia Additional Source Comments INFORMATION SOURCE (unrecogn ized section and content) DATE CREATED AUTHOR 01/02/2021 [facility] DATE CREATED AUTHOR AUTHOR'S ORGANIZ ATION 07/18/2021 [facility] DATE CREATED AUTHOR AUTHOR'S ORGANIZ ATION 02/27/2022 [facility] DATE CREATED AUTHOR AUTHOR'S ORGANIZ ATION 02/27/2022 [facility] DATE CREATED AUTHOR AUTHOR'S ORGANIZ ATION 04/17/2022 [facility] DATE CREATED AUTHOR AUTHOR'S ORGANIZ ATION 12/18/2022 [facility] DATE CREATED AUTHOR AUTHOR'S ORGANIZ ATION 03/02/2023 [facility] DATE CREATED AUTHOR AUTHOR'S ORGANIZ ATION 07/07/2023 [facility] REASON FOR VISIT (unrecogniz ed section and content) Reason Comments Follow-up 1 year Care Teams (unrecognized sec tion and content) Rv Repairer Relationship Specialty Start Date End Date John Lentz MD [address] [place] [address] [address] [place] [address] PCP - General 11/03/18 Team Status: Active Member Role Status Dates John Lentz MD Primary Care Provider Active Team Status: Inactive Member Role Status Dates John Lentz MD Attending Provider Active St art: April 06, 2023 End: April 06, 2023 Team Status: Inactive Member Role Status Dates John Lentz MD Attending Provider Active St art: April 15, 2023 End: April 15, 2023 Team Status: Inactive Member Role Status Dates John Lentz MD Attending Provider Active St art: April 29, 2023 End: April 29, 2023 Team Status: Inactive Member Role Status Dates John Lentz MD Primary Care Provide r, Attending Provider Active Start: June 17, 2023 End: June 17, 2023 Goals (unrecognized section and content) Goals may be documented in a n alternate section FOR RECORDS PERTAINING TO PATIENTS WHO ARE [...] BE BASED ON THE PRIMARY CLINICAL RECORDS. [facility] [employer] provides no warranty or guarantee of the accuracy or completeness of information in this document.
--- NOTE | 2023-08-31 06:04 | ECG_ITS ---
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
--- NOTE | 2023-08-31 06:04 | XR_ITS ---
The [address] [address] Patient Name: SANCHEZ SAMSON MRN: [id number] date: 1945 Sex: F Assigned Patient Location: ER Current Patient Location: ED.MAIN Accession/Order Number: [id number] Exam Date: 08/31/2023 06:20 Report Date: 08/31/2023 06:56 At the request of: SARMAD ANGELO Procedure: XR chest 1V EXAMINATION: XR chest 1V HISTORY: short of breath COMPARISON: XR chest 06/05/2023, 06/17/2023 FINDINGS: LUNGS: Dense opacities throughout the mid and lower lung regions, right greater than left. Persistent opacity within right upper lung regions suspected to be loculated fluid. VASCULATURE: No increased pulmonary vasculature. PLEURA: No pneumothorax, effusion, or pleural thickening. CARDIAC: Stable cardiomegaly. MEDIASTINUM: No visible mass or adenopathy. BONES: No fracture or visible bone lesion. OTHER: Negative. XR/XR chest 1V IMPRESSION: 1. New marked right and moderate left pulmonary infiltrates suggestive of pneumonia. 2. Persistent right upper lobe opacity suspected be loculated fluid within the major fissure. Electronically authenticated by: JOSIE PARIS Date: 08/31/2023 06:56
[2023-08-31 06:18] LABS: PCO2 VBG 42.5 mmHg (40.0-52.0); pH VBG 7.319 (7.330-7.430)
[2023-08-31 06:19] LABS: Basophils Absolute Auto 0.1 10^3/uL (0.0-0.1); Basophils Percent Auto 0.3 % (0.2-2.0); Eosinophils Percent Auto 0.1 % (0.9-7.0); Hematocrit 38.9 % (36.0-48.0); Hemoglobin 11.8 g/dL (12.0-16.0); Immature Granulocytes Abs Auto 0.06 10^3/uL (0.00-0.03); Immature Granulocytes Pct Auto 0.3 % (0.0-0.5); Lymphocytes Absolute Auto 0.9 10^3/uL (1.2-3.8); Mean Corpuscular HGB Conc 30.3 g/dL (29.9-35.2); Mean Corpuscular Hemoglobin 27.8 pg (26.7-34.0); Mean Corpuscular Volume 91.7 fL (81.0-99.0); Mean Platelet Volume 10.2 fL (9.5-13.5); Monocytes Absolute Auto 0.7 10^3/uL (0.3-0.8); Monocytes Percent Auto 3.6 % (1.7-12.0); Neutrophils Absolute Auto 16.5 10^3/uL (1.4-6.5); Neutrophils Percent Auto 90.7 % (43.0-75.0); Platelet Count 479 10^3/uL (150-450); Red Blood Count 4.24 10^6/uL (4.20-5.40); Red Cell Distribution Width 16.6 % (11.0-15.0); White Blood Count 18.3 10^3/uL (4.0-11.0)
--- NOTE | 2023-08-31 06:21 | ED_ITS ---
HPI - SOB/Dyspnea General Chief Complaint: Shortness of Breath/Dyspnea Stated Complaint: SOB Time Seen by Provider: 08/31/23 06:04 Source: patient Mode of arrival: Wheelchair Limitations: no limitations History of Present Illness HPI Narrative: history of 02 dependent COPD. Presents complaining of shortness of breath. Became worse last PM. no chest pain or fever. she also has PAD s/p left AKA. has chronic pain of her left stump. Ex smoker Related Data Home Medications ?Medication ?Instructions ?Recorded ?Confirmed albuterol 90 mcg/actuation aerosol 90 mcg inhalation .q 4 hours PRN 03/27/23 06/01/23 inhaler sob budesonide-formoterol HFA 160 2 inh inhalation Q12H 03/27/23 06/01/23 mcg-4.5 mcg/actuation aerosol inhaler (Symbicort) docusate sodium 100 mg capsule 100 mg PO BID 03/27/23 06/01/23 duloxetine 60 mg capsule,delayed 60 mg PO DAILY 03/27/23 06/01/23 release gabapentin 800 mg tablet 800 mg PO TID 03/27/23 06/01/23 nitroglycerin 0.4 mg sublingual 0.4 mg sublingual Q5M PRN chest 03/27/23 06/01/23 tablet pain oxycodone 10 mg tablet 10 mg PO Q6H PRN pain 03/27/23 06/01/23 pantoprazole 40 mg tablet,delayed 40 mg PO DAILY 03/27/23 06/01/23 release tizanidine 4 mg tablet 4 mg PO TID PRN muscle spasticity 03/27/23 06/01/23 apixaban 2.5 mg tablet (Eliquis) 2.5 mg PO BID 04/22/23 06/01/23 atorvastatin 40 mg tablet 40 mg PO .qhs 06/01/23 06/01/23 clopidogrel 75 mg tablet 75 mg PO DAILY 06/01/23 06/01/23 furosemide 40 mg tablet 40 mg PO DAILY 06/01/23 06/01/23 lorazepam 0.5 mg tablet 0.5 mg PO BID PRN anxiety 06/01/23 06/01/23 spironolactone 25 mg tablet 25 mg PO DAILY 06/01/23 06/01/23 Previous Rx's ?Medication ?Instructions ?Recorded benzonatate 100 mg capsule 100 mg PO BID PRN cough #20 caps 06/06/23 levofloxacin 750 mg tablet 750 mg PO Q24H 4 days #4 tabs 06/06/23 metoprolol succinate 25 mg 100 mg (4 x 25 mg) PO DAILY #0 tabs 06/06/23 tablet,extended release 24 hr prednisone 20 mg tablet 20 mg PO DAILY 10 days #10 tabs 06/06/23 Allergies Allergy/AdvReac Type Severity Reaction Status Date / Time vancomycin Allergy Intermediate Rash Verified 08/31/23 05:55 Review of Systems ROS Status of ROS 10 or more systems reviewed and unremark able except as noted in history and below [facility] Medical History (Updated 08/31/23 @ 06:34 by Patrick Maloney MD) Hyperglycemia ?R73.9 - Hyperglycemia, unspecified (ICD-10) Community acquired pneumonia ?J18.9 - Pneumonia, unspecified organism (ICD-10) Right lower lobe lung mass ?R91.8 - Other nonspecific abnormal finding of lung field (ICD-10) Acute on chronic diastolic (congestive) heart failure ?I50.33 - Acute on chronic diastolic (congestive) heart failure (ICD-10) HTN (hypertension) ?I10 - Essential (primary) hypertension (ICD-10) Atrial fibrillation with RVR ?I48.91 - Unspecified atrial fibrillation (ICD-10) Acute and chronic respiratory failure with hypoxia ?J96.21 - Acute and chronic respiratory failure with hypoxia (ICD-10) COPD (chronic obstructive pulmonary disease) ?J44.9 - Chronic obstructive pulmonary disease, unspecified (ICD-10) Right leg injury ?S89.91XA - Unspecified injury of right lower leg, initial encounter (ICD-10) Pneumonia ?J18.9 - Pneumonia, unspecified organism (ICD-10) Chronic respiratory failure with hypoxia ?J96.11 - Chronic respiratory failure with hypoxia (ICD-10) Alcohol abuse ?F10.10 - Alcohol abuse, uncomplicated (ICD-10) New onset a-fib ?I48.91 - Unspecified atrial fibrillation (ICD-10) COVID-19 ?U07.1 - COVID-19 (ICD-10) HLD (hyperlipidemia) ?E78.5 - Hyperlipidemia, unspecified (ICD-10) PAD (peripheral artery disease) ?I73.9 - Peripheral vascular disease, unspecified (ICD-10) Oxygen dependent ?Z99.81 - Dependence on supplemental oxygen (ICD-10) Surgical History (Updated 04/22/23 @ 14:44 by Vanita Maloney) History of carpal tunnel surgery ?Z98.890 - Other specified postprocedural states (ICD-10) H/O: hysterectomy ?Z90.710 - Acquired absence of both cervix and uterus (ICD-10) Amputated left leg ?S88.912A - Complete traumatic amputation of left lower leg, level unspecified, initial encounter (ICD-10) Social History Within the past year, how often did you have a drink containing alcohol: 4 or more times a week Within the past year, how many standard drinks containing alcohol did you have on a typical day: 3 or 4 Within the past year, how often did you have six or more drinks on one occasion: weekly Total score: 5 Score interpretation: A score of 3 or more indicates drinking is likely to affect patient's safety. Smoking status: Former smoker Highest level of school completed/degree received: high school graduate Do you think of yourself as: straight/heterosexual Gender Identity: female Exam Constitutional Vital Signs, click to edit/add: Last Vital Signs Temp 99.1 F 08/31/23 05:48 Pulse 98 H 08/31/23 05:48 Resp 20 08/31/23 05:48 BP 101/58 08/31/23 05:48 Pulse Ox 92 L 08/31/23 06:29 O2 Del Method Nasal Cannula 08/31/23 06:29 O2 Flow Rate 6 08/31/23 06:29 Common normals: oriented x3 and alert General appearance: in distress [facility] Common normals: normocephalic and head/scalp atraumatic Eye Common normals: PERRL, EOMs intact bilaterally and conjunctivae normal Respiratory Other: diminished breath sounds Cardio Common normals: regular rate, regular rhythm, S1 normal heart sound and S2 normal heart sound GI Common normals: Normal to inspection, nondistended, normoactive bowel sounds present and soft to palpation Extremity Other: left AKA rubra discoloration right foot/ankle pulse present via doppler Neuro Common normals: oriented x3, CN's II-XII intact bilaterally, moves all extremities and no focal motor deficits Psych Appearance: grossly normal Course Vital Signs Vital signs: Vital Signs Temperature 99.1 F 08/31/23 05:48 Pulse Rate 98 H 08/31/23 05:48 Respiratory Rate 20 08/31/23 05:48 Blood Pressure 101/58 08/31/23 05:48 Pulse Oximetry 90 L 08/31/23 05:48 Oxygen Delivery Method Nasal Cannula 08/31/23 05:48 Oxygen Delivery Flow Rate 5 08/31/23 05:48 Temperature 99.1 F 08/31/23 05:48 Pulse Rate 98 H 08/31/23 05:48 Respiratory Rate 20 08/31/23 05:48 Blood Pressure 101/58 08/31/23 05:48 Pulse Oximetry 92 L 08/31/23 06:29 Oxygen Delivery Method Nasal Cannula 08/31/23 06:29 Oxygen Delivery Flow Rate 6 08/31/23 06:29 MDM - SOB/Dyspnea MDM Narrative Medical decision making narrative: patient has past history of mass right chest and 02 dependent COPD. Presents short of breath. also has chronic pain left AKA stump and history of PAD. ex smoker. labs and and diagnostic studies ordered. Care transferred to [facility] physician Lab Data Labs: Lab Results 08/31/23 Range/Units 06:07 WBC 18.3 H (4.0-11.0) 10^3/uL RBC 4.24 (4.20-5.40) 10^6/uL Hgb 11.8 L (12.0-16.0) g/dL Hct 38.9 (36.0-48.0) % MCV 91.7 (81.0-99.0) fL MCH 27.8 (26.7-34.0) pg MCHC 30.3 (29.9-35.2) g/dL RDW 16.6 H (11.0-15.0) % Plt Count 479 H (150-450) 10^3/uL MPV 10.2 (9.5-13.5) fL Neut % (Auto) 90.7 H (43.0-75.0) % Lymph % (Auto) 5.0 L (20.5-60.0) % [place] % (Auto) 3.6 (1.7-12.0) % Eos % (Auto) 0.1 L (0.9-7.0) % Baso % (Auto) 0.3 (0.2-2.0) % Neut # (Auto) 16.5 H (1.4-6.5) 10^3/uL Lymph # (Auto) 0.9 L (1.2-3.8) 10^3/uL [place] # (Auto) 0.7 (0.3-0.8) 10^3/uL Eos # (Auto) 0.0 (0.0-0.7) 10^3/uL Baso # (Auto) 0.1 (0.0-0.1) 10^3/uL Abs Immat Gran (auto) 0.06 H (0.00-0.03) 10^3/uL Imm/Tot Granulo (auto) 0.3 (0.0-0.5) % VBG pH 7.319 L (7.330-7.430) VBG pCO2 42.5 (40.0-52.0) mmHg Discharge Plan Discharge Patient Disposition: Still a Patient
[2023-08-31] MEDS: IPRATROPIUM/ALBUTEROL SULFATE 3 ML AMPUL.NEB IH (06:26)
[2023-08-31] MEDS: MORPHINE SULFATE 4 MG/ML VIAL IM (06:31)
[2023-08-31 06:40] LABS: Anion Gap 17.2; BUN Creatinine Ratio 15.5; Calcium 8.8 mg/dL (8.5-10.1); Carbon Dioxide 22.9 mmol/L (21.0-32.0); Chloride 97 mmol/L (98-107); Estimated GFR (African America 58 (>=60); Estimated GFR (Non-African Ame 48 (>=60); Glucose 112 mg/dL (74-106); Potassium 4.1 mmol/L (3.5-5.1); Sodium 133 mmol/L (136-145); Troponin I High Sensitivity 12.1 pg/mL (4.0-51.3)
[2023-08-31] MEDS: METHYLPREDNISOLONE SOD SUCC PF 125 MG/2 ML VIAL IVP (06:45)
--- NOTE | 2023-08-31 07:09 | PC.NURSE ---
Skin very frail with multiple bruising in different stages of healing
--- NOTE | 2023-08-31 07:23 | PC.NURSE ---
[id number] 84% on 6L NC, Dr. Maloney asked to have patient started on Vapotherm, Cardio called to set it up.
[2023-08-31 07:33] LABS: Lactate/Lactic Acid 2.9 mmol/L (0.4-2.0)
[2023-08-31 07:45] LABS: Adenovirus NOT DETECTED (NOT DETECTE); Bordetella parapertussis NOT DETECTED (NOT DETECTE); Coronavirus 229E NOT DETECTED (NOT DETECTE); Coronavirus HKU1 NOT DETECTED (NOT DETECTE); Coronavirus NL63 NOT DETECTED (NOT DETECTE); Coronavirus OC43 NOT DETECTED (NOT DETECTE); Human Metapneumovirus NOT DETECTED (NOT DETECTE); Human Rhinovirus/Enterovirus NOT DETECTED (NOT DETECTE); Influenza A NOT DETECTED (NOT DETECTE); Influenza B NOT DETECTED (NOT DETECTE); Mycoplasma pneumoniae NOT DETECTED (NOT DETECTE); Parainfluenza Virus 1 NOT DETECTED (NOT DETECTE); Parainfluenza Virus 2 NOT DETECTED (NOT DETECTE); Parainfluenza Virus 3 NOT DETECTED (NOT DETECTE); Parainfluenza Virus 4 NOT DETECTED (NOT DETECTE); Respiratory Syncytial Virus NOT DETECTED (NOT DETECTE); SARS-CoV-2 NOT DETECTED (NOT DETECTE)
[2023-08-31 07:48] LABS: ABG PCO2 40.4 mmHg (35.0-45.0); HCO3 ABG 23.1 mmol/L (22.0-26.0); PO2 ABG 91.6 mmHg (80.0-100.0); pH ABG 7.365 (7.350-7.450)
[2023-08-31 07:49] LABS: Allen Test POSITIVE (POSITIVE); Base Excess ABG -2.3 mmol/L (-2.0-2.0); Oxygen Saturation ABG 97.1 %
[2023-08-31 07:50] LABS: Fractionated Inspired Oxygen 60 %; Liters per Minute 40; O2 Mode VAPOTHERM
[2023-08-31 07:51] LABS: Puncture Site LR
[2023-08-31] MEDS: PIPERACILLIN SODIUM/TAZOBACTAM 4.5 GM in 0.9 % SODIUM CHLORIDE 50 ML IV (07:51)
[2023-08-31] MEDS: 0.9 % SODIUM CHLORIDE 1,000 ML 500 ML IV (07:52)
[2023-08-31] MEDS: DOXYCYCLINE HYCLATE 100 MG in 0.9 % SODIUM CHLORIDE 100 ML IV (08:22)
--- OUTSIDE RECORDS SUMMARY | 2023-08-31 08:50 | XMS_ITS | CCD ---
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 John Melgoza [facility] Unav ailable Jimmy, Dr. Tracey De La Cruz Attending Unavail able Lyster, Dr. Tracey De La Cruz Referring Unavail able Lyster, Dr. Tracey De La Cruz Attending Unavail able Lyster, Dr. Tracey De La Cruz Referring Unavail able Lentz, Dr. John Melgoza [facility] Unav ailable Delvin, Dr. Son Attending Unavailable Abhijeet, Dr. John Melgoza [facility] Unav ailable John Lentz Unavailable Margy Olivas [...] Allergy 07-19-19 21 Unknown, Unknown Reaction [facility] Repository (3 sources) Neomycin; Translations: [NEOMYCIN] Drug Allergy 07-19-19 Unknown Reaction [facility] Repository (4 sources) Vancomycin; Translations: [VANCOMYCIN] Drug Allergy 01-17-20 15 Rash [facility] Repository (2 sources) Polymyxin B Drug allergy (disorder) 07-19-19 Unknown Reaction [facility] Repository (20 sources) Vancomycin; Translations: [vancomycin] Drug Allergy 07-21-19 14 [facility] (20 sources) Aminoglycosides (Antibiotic) Propensity to adverse reactions 06-17-19 24 Unknown, Unknown Reaction [facility] (9 sources) Bacitracin Drug Allergy Unknown [facility] Other (20 sources) Neomycin Drug Allergy Unknown [facility] Other (20 sources) Polymyxin B Drug Allergy Unknown [facility] Other (17 sources) Contrast media Propensity to adverse reactions 07-21-19 14 Unknown [facility] Other (17 sources) Erythromycin Drug Allergy Unknown [facility] Other (17 sources) fluticasone / salmeterol Drug Allergy 09-11-19 16 Unknown [facility] Other (16 sources) influenza A virus (H1N1) antigen / influenza A virus (H3N2) antigen / influenza B virus antigen Drug Allergy Comment:Flu Injection [facility] Other (18 sources) traMADol Drug Allergy 10-17-19 15 Unknown, Unknown Reaction [facility] (17 sources) Advair Diskus *ANTIASTHMATIC AND BRONCHODILATOR AG Propensity to adverse reactions Unknown [facility] Other (7 sources) patient allergy list reviewed by nurse or physicia Propensity to adverse reactions 09-22-19 18 Comment:Done [facility] Other (18 sources) Dyes Propensity to adverse reactions 04-29-19 24 Comment:CT DYE [facility] (7 sources) Allergies Reconciled Propensity to adverse reactions Unknown [employer] [facility] [employer] Other (17 sources) TraMADol & Dietary Manage Prod *ANALGESICS - OPIOI Propensity to adverse reactions Unknown [facility] [employer] Other (17 sources) Vaccine product containing Influenza virus antigen (medicinal product) Drug allergy 03-03-20 17 Unknown [facility] [employer] Other (17 sources) Contraindication to Flu Injection Propensity to adverse reactions 08-18-19 18 Comment:advers e rxn/side effects [facility] [employer] Other (1 source) Aminoglycosides (Antibiotic) Drug allergy (disorder) 10-25-19 [facility] Repository (1 source) Vancomycin Drug Allergy 10-25-19 [facility] Repository (2 sources) Flucelvax Quadrivalent Drug allergy 04-29-19 Comment:Flu Injection [facility] (1 source) fluticasone Drug Allergy 06-17-19 Unknown Reaction [facility] (1 source) erythromycin base Allergy to substance 06-17-19 Unknown Reaction [facility] (1 source) POLYMYXIN B SULFATE-HC; Translations: [POLYMYXIN B SULFATE-HC] Propensity to adverse reactions to drug (disorder) 08-29-19 [facility] Repository Medications Current Medications Medication Drug Class(es) Dates Sig (Normalized) Sig (Original) acetaminophen 325 mg oral capsule (1 source) Start: 07-26-2018 take 650 mg by mouth every six hours Acetaminophen Active 650 MG PO Q6H July 25, 2018 11:00pm [id number] 200 actuat albuterol 0.09 mg/actuat metered dose [...] 12:00am Start: 05-26-2021 take 2 capsules by [facility] three times daily DULoxetine (Cymbalta) [address] capsule Take 2 capsules (60 mg) by mouth 3 times a day. 0 05/26/2021 Active Start: 05-26-2021 take 1 capsule by mo [facility] twice daily DULoxetine HCl - 30 MG [...] mg by inhalation four times daily Ipratropium Gibsonia Active 0.5 MG INHALATION Four times daily 150 August 15, 2018 11:00pm Start: 07-28-2017 End: 07-12-2018 take 1 puff(s) by inhalation every six hours Ipratropium Gibsonia (Atrovent Hfa) 17 mcg/actuation Hfa Aerosol Inhaler Discontinued 1 PUFF INHALATION Q6H July 27, 2017 11:00pm July 12, 2018 7:48am levoFLOXacin 500 mg oral tablet (5 sources) Quinolone Antimicrobial Start: 09-24-2022 take 1 tablet by mouth every twenty-four hours levoFLOXacin 500 MG 1 tablet Orally Once a day for 10 days Sep, Active Start: 06-01-2022 take 1 tablet by erva th every twenty-four hours levoFLOXacin 500 MG [...] Twice daily June 16, 2023 12:00am Nystatin [id number] UNIT/GM 1 application Externally Twice a day [...] 4 MG TAKE 1 TABLET BY [facility] THREE TIMES A DAY NEEDED for 16 [...] plavix on paxlovid - thanks Active sennosides, retirement 8.6 mg oral tablet (1 source) Start: [...] by mouth every four hours Hydrocodone-Acetami nophen (Morris) 5-325 mg Tablet Discontinued 1 TAB PO Q4H 10 June 25, 2018 12:00am July 12, 2018 7:46am Start: 08-05-2017 End: 06-20-2018 take 1 tablet by mouth every four hours Hydrocodone-Acetaminophen Discontinued 1 TAB PO Q4H 30 August 04, 2017 11:00pm June 20, 2018 7:43am Start: 05-14-2017 End: 08-05-2017 take 1 tablet by mouth every four to six hours Hydrocodone-Acetaminophen (Morris) 5-325 mg tablet Discontinued 1 TAB PO [...] 9:21am Start: 12-31-2016 take 1 tablet by [facility] once daily Paroxetine Hcl (Paxil) 40 mg Tablet Active 1 TAB PO Daily December 30, 2016 11:00pm predniSONE 20 mg oral tablet (20 sources) Start: 06-16-2023 End: 06-17-2023 take 40 mg by mouth once daily Prednisone Discontinued 40 MG PO Daily June 16, 2023 12:00am June 17, 2023 3:22pm Start: 03-23-2023 take 2 tablets by [facility] every twenty-four hours predniSONE 20 MG 2 tablets Orally Once a day for 5 days tell pt to hold plavix on paxlovid - thanks Feb, Active Start: 06-01-2022 take 2 tablets by [facility] every twenty-four hours predniSONE 20 MG [...] disease (20 sources) Atherosclerotic heart disease of [place] coronary artery without angina pectoris; Translations: [Coronary arteriosclerosis] Onset: 08-25-2018 03-01-2023 Chronic Coronary atherosclerosis and other heart disease (10 sources) Stented coronary artery; Translations: [Percutaneous transluminal coronary angioplasty status] Onset: 02-26-2023 03-01-2023 Episodic Coronary atherosclerosis and other heart disease (1 source) Coronary atherosclerosis and other heart disease; Translations: [Atherosclerosis of [place] arteries of extremities with intermittent claudication, right [...] 07-20-2013 Chronic Other aftercare (1 source) Other care home (current) drug therapy; Translations: [OTH BOOM STICK MAN CURRENT DRUG THERAPY] Onset: 11-06-2020 Episodic Other aftercare (7 sources) Long-term current use of inhaled steroid; Translations: [USP (current) use of inhaled steroids] Episodic Other aftercare (7 sources) Long-term current use of anticoagulant; Translations: [USP (current) use of anticoagulants] Episodic Other aftercare [...] Onset: 12-17-2016 Episodic Other aftercare (1 source) USP (current) use of anticoagulants; Translations: [RETIREMENT CURRNT USE ANTICOAGULANTS] Onset: 07-05-2020 Episodic Other [...] Range Facility Office Visiton 07-06-2023 Follow-up visit [id number] Sanchez Merritt 1945 F Date Provider Department Center 07/06/2023 241-CHRIS MAGANA [facility] No family history on file Level of Service:41678 HI OFFICE/OUTPATIENT NEW MODERATE MDM 45 MINUTES Normal [facility] Office Visiton 04-12-2023 Follow-up visit [id number] Sanchez Merritt 1945 F Date Provider Department Center 04/12/2023 159Nayana-VENKATMARINEJose OMKAR [facility] No family history on file Level of Service:94522 HI OFFICE/OUTPATIENT ESTABLISHED MOD MDM 30 MIN Normal [facility] US UNI ankle/arm indiceson 0 12-17-2022 US UNI ankle/arm indices [facility] [place] [address] Ultrasound Report Signed Patient: Sanchez Merritt MR#: [id number] : 1945 Acct:[id number] Age/Sex: 77 / F ADM Date: 11/17/22 Loc: [facility] Room: Type: [facility] Attending Dr: Margy Olivas CARE TRANSITIONS NURSE-C Ordering Provider: Margy Olivas APRN Date [...] Lauro Heard MD12/17/2022 2:11 PM Dictation Location: [id number] Tech: Julia Michele Transcribed By: BILLIE 12/17/22 1411 Dictated By: Lauro Heard MD 12/17/22 1410 Signed By: 12/17/22 1411 [facility] VAS LAB Carotid Artery Dupl ex Ultrasounon 04-13-2022 VAS LAB Carotid Artery Duplex Ultrasoun [address], [address] [place] [address] Vascular Lab Report Carotid Artery Duplex Ultrasound Patient Name: SANCHEZ Stacy Reading Physician: [id number] Ludwig South MD, [facility] Study Date: 04/13/2022 Referring ADELAIDA HARGROVE Physician: MRN/PID: [id number] PCP: John Lentz Accession/Order#: [id number] CC Report to: Cooper Arnold Date of : 1945 Technologist: Jillian Gonzalez [facility] Gender: F Technologist 2: Admission Status: Outpatient Location Performed: [facility] Diagnosis/ICD: R09.89-Other specified symptoms and signs involving the circulatory and respiratory systems Indication: CAD, Right CEA, Peripheral Vascular Disease, 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, HTN, Hyperlipidemia, Former Smoker, Ischemic Cardiomyopathy, COPD, PTCA-07/2018 Procedure/CPT: 08146 Cerebrovascular Carotid Duplex scan complete-99748 CONCLUSIONS: Right Carotid: Findings are consistent with [...] cm/s Right Left ICA/CCA Ratio 0.5 0.8 99290 Ludwig South MD, FACC Final Normal [facility] VAS LAB Carotid Artery Dupl ex Ultrasoundon 04-13-2022 US.doppler Carotid arteries [facility] Work Phone: Height or Weight NOT Doneon 02-26-2022 Fall risk assessment a) No falls within the last year [facility] [place] [facility] DO Work Phone: Tobacco use status [facility] b) No -[facility] [place] [facility] DO Work Phone: Office Visit (Cardiology)on [...] PERFUSION STRESS TEST WITH LEXISCAN Performing facility: [facility], [address] [place] [address], [address], [place] [address] [facility] Provider: Tracey Pitt DO, FACC PCP: Dr. Young Lentz Supervising provider: Ludwig South MD, [facility] INDICATION: CAD; ICM SOB; HISTORY: Gender: F; Age: 76 y/o ; Height: 160.02 cm; Weight: 58.373747 kg. High Cholesterol; CAD; SOB; COPD; Quit smoking 12 years ago. Cardiac catheterization on 2019. PTCA on 2019. COMPARISON: No comparison. ACCESSION NUMBER(S): [id number]; [id number]; [id number] ORDERING CLINICIAN: TRACEY PITT TECHNIQUE: ONE DAY [...] Electronically signed by: GHULAM RIVERA MD Normal [facility] No Panel Informationon 08-19 Normal -[facility] DO Work Phone: Office Visit [...] Status:Hold For - Scheduling,Retrospecti ve Authorization; Requested for:[id number]; Radiologist to Determine Optimal Study : Y What are the patient's signs and symptoms? : SOB Health Maintenance PHQ2 Screen Positive; Status:Complete - Retrospective Authorization; Done: [id number] SocHx: Former smoker Tobacco Use Screening; Status:Complete; Done: [id number] Patient Instructions Please bring all medicines, vitamins, [...] of Percutaneous transluminal coronary angioplasty History of BUSINESS MGR carotid History of BUSINESS MGR femoral-popliteal History of Tonsillectomy with adenoidectomy Past [...] 022 Adult depression screening assessment Yes -[facility] [facility] DO Work Phone: Fall risk assessment a) No falls within the last year [facility] [facility] DO Work Phone: Tobacco use status [facility] b) No -[facility] [facility] DO Work Phone: Tobacco Screening. 2-More than half the days -[facility] DO Work Phone: Tobacco Screening. 1-Several days -[facility] [facility] DO Work Phone: Tobacco Screening. 0-Not at [facility] [place] DO Work Phone: Tobacco Screening. 3-Nearly every day -[facility] DO Work Phone: Tobacco Screening. Somewhat Difficult -[facility] DO Work Phone: Wily 05-23-2021 CNOV Office Visit (CONG ) SANCHEZ MERRITT ([id number]) 1945 F Date Time Provider Department 05/23/21 [...] procedures: Seen pain management in [facility] Did an injection with no relief Dr Bella no longer sees this provider . Relevant [facility] records were reviewed. Adverse Reaction to Medication: [...] radicular pain. (more content not included)... Normal [facility] CNPNon 05-23-2021 [facility] Telephone ([facility]) SANCHEZ MERRITT ([id number]) 1945 F Date Time Provider Department 05/23/21 [...] be called to [facility] in [place]. States it was discussed at last OV. Please advise. Cleopatra King LPN 05/28/2021 11:50 AM Signed Called the patient and advised that normally Lien Hughes LPN 05/28/2021 12:02 PM Signed Tens unit was sent to [facility]. Cleopatra King LPN 05/28/2021 1:25 PM Signed Patient was notified that order was sent to [facility] and they would contact her. Allergies As [...] Status:Closed by CLEOPATRA KING on 05/28/21 Normal [facility] Covid-19 PCR (CVDTBH)on SARS-CoV-2 (COVID-19) RNA MEENAKSHI+probe Ql (Unsp spec) Not detected Normal NOT DETECTED [facility] Comment on above: Result Comment: This test is not yet approved or cleared by the [place] FDA. When there are no FDA-approved or cleared tests available, and other criteria are met, FDA can make tests available under an emergency access mechanism called an Emergency Use Authorization (EUA). The EUA for this test is supported by the Building Rental Superintendent of Health and Human Service's (HHS's) declaration [...] SARS-CoV-2. Performed By: #### C [facility] ####[facility] [address] [place], [place] [address]FkapznAleida Marcial XR LSPINE W_OBLS AND FLEX_EX Ton [...] by: LORENA LATIF Date: 2020-07-02 15:[address] [facility] CT CHEST HI RESOLUTIONon CT CHEST [...] by: JOSIE PARIS Date: 2020-06-18 14:[address] [facility] XR CHEST 2 Von 02-29-2020 XR [...] by: JOSIE PARIS Date: 2020-02-29 09:[address] [facility] Vital Signs Date Time Vital Sign Value Performing Clinician Facility 06-17-2023 15:04-0500 Body height 156.21 cm [facility] 06-17-2023 15:04-0500 Body mass index (BMI) [Ratio] 24.1 kg/m2 [facility] 06-17-2023 15:04-0500 Body weight 58.96 kg [facility] 06-17-2023 15:04-0500 Diastolic blood pressure 81 mm[Hg] [facility] 06-17-2023 15:04-0500 Heart rate 98 /min [facility] 06-17-2023 15:04-0500 SaO2% (BldA) [Mass fraction] 95 % [facility] 06-17-2023 15:04-0500 Systolic blood pressure 131 mm[Hg] [facility] 04-29-2023 13:00-0500 Body height 156.21 cm John Lentz Other [facility] 04-29-2023 13:00-0500 Body mass index (BMI) [Ratio] 24.16 kg/m2 John Lentz Other [employer] Other 04-29-2023 13:00-0500 Body weight 58.97 kg John Lentz Other [employer] Other 04-29-2023 13:00-0500 Body weight 58.96 kg [facility] 04-29-2023 13:00-0500 Diastolic blood pressure 76 mm[Hg] John Lentz Other [facility] 04-29-2023 13:00-0500 SaO2% (BldA) [Mass fraction] 86 % John Lentz Other [employer] [facility] [employer] Other 04-29-2023 13:00-0500 Systolic blood pressure 109 mm[Hg] John Lentz Other [facility] 04-15-2023 15:45-0500 Body height 156.21 cm John Lentz Other [facility] 04-15-2023 15:45-0500 Body mass index (BMI) [Ratio] 24.16 kg/m2 John Lentz Other [employer] [facility] [employer] Other 04-15-2023 15:45-0500 Body weight 58.97 kg John Lentz Other [facility] [employer] Other 04-15-2023 15:45-0500 Body weight 58.96 kg [facility] 04-15-2023 15:45-0500 Diastolic blood pressure 72 mm[Hg] John Lentz Other [facility] 04-15-2023 15:45-0500 SaO2% (BldA) [Mass fraction] 95 % John Lentz Other [employer] [facility] [employer] Other 04-15-2023 15:45-0500 Systolic blood pressure 103 mm[Hg] John Lentz Other [facility] 04-06-2023 14:30-0500 Body height 156.21 cm [facility] 04-06-2023 14:30-0500 Body weight 58.96 kg [facility] 04-06-2023 14:30-0500 Diastolic blood pressure 78 mm[Hg] [facility] 04-06-2023 14:30-0500 Systolic blood pressure 132 mm[Hg] [facility] 03-01-2023 14:00-0500 Diastolic blood pressure 68 mm[Hg] Adelaida Hargrove MD Work Phone: [facility] 03-01-2023 14:00-0500 Heart rate 68 /min Adelaida Hargrove MD Work Phone: [facility] 03-01-2023 14:00-0500 Systolic blood pressure 110 mm[Hg] Adelaida Hargrove MD Work Phone: [facility] 10-20-2022 13:15-0400 Body height 156.21 cm Margy Carpenteremiliano Other [employer] Other 10-20-2022 13:15-0400 Body mass index (BMI) [Ratio] 24.16 kg/m2 Margy Carpenterprateekmaral Other [employer] Other 10-20-2022 13:15-0400 Body temperature 96.9 [degF] Margy Carpenterprateekmaral Other [employer] Other 10-20-2022 13:15-0400 Body weight 58.97 kg Margy Carpenteremiliano Other [employer] Other 10-20-2022 13:15-0400 Diastolic blood pressure 60 mm[Hg] Margy Carpenteremiliano Other [employer] Other 10-20-2022 13:15-0400 SaO2% (BldA) [Mass fraction] 93 % Margy Carpenteremiliano Other [employer] Other 10-20-2022 13:15-0400 Systolic blood pressure 110 mm[Hg] Margy Olivas Other [employer] Other 09-22-2022 10:00-0400 Body height 156.21 cm John Lentz Other [employer] Other 09-22-2022 10:00-0400 Body mass index (BMI) [Ratio] 24.16 kg/m2 John Lentz Other [employer] Other 09-22-2022 10:00-0400 Body weight 58.97 kg John Lentz Other [employer] Other 09-22-2022 10:00-0400 Diastolic blood pressure 68 mm[Hg] John Lentz Other [employer] Other 09-22-2022 10:00-0400 Systolic blood pressure 117 mm[Hg] John Lentz Other [employer] Other 06-01-2022 11:15-0500 Body height 156.21 cm John Lentz Other [employer] Other 06-01-2022 11:15-0500 Body mass index (BMI) [Ratio] 24.16 kg/m2 John Lentz Other [employer] Other 06-01-2022 11:15-0500 Body weight 58.97 kg John Lentz Other [employer] Other 06-01-2022 11:15-0500 Diastolic blood pressure 60 mm[Hg] John Lentz Other [employer] Other 06-01-2022 11:15-0500 SaO2% (BldA) [Mass fraction] 92 % John Lentz Other [facility] [employer] Other 06-01-2022 11:15-0500 Systolic blood pressure 102 mm[Hg] John Lentz Other [facility] [employer] Other 02-26-2022 15:00-0400 Body height 160.02 cm John Lentz Work Phone: [facility] [facility] DO Work Phone: 02-26-2022 15:00-0400 Body mass index (BMI) [Ratio] Medical Reason Not Done John Lentz Work Phone: [facility] [facility] DO Work Phone: 02-26-2022 15:00-0400 Diastolic blood pressure 60 mm[Hg] John Lentz Work Phone: [facility] [facility] DO Work Phone: 02-26-2022 15:00-0400 Heart rate 80 /min John Lentz Work Phone: [facility] [facility] DO Work Phone: 02-26-2022 15:00-0400 Systolic blood pressure 122 mm[Hg] John Lentz Work Phone: [facility] [facility] DO Work Phone: 08-19-2021 12:00-0400 72 1 John Lentz Work Phone: [facility] [facility] DO Work Phone: Comment on above: [id number] 08-07-2021 14:55-0400 Body height 160.02 cm John Lentz Work Phone: [facility] DO Work Phone: 08-07-2021 14:55-0400 Diastolic blood pressure 68 mm[Hg] John Lentz Work Phone: [facility] [facility] DO Work Phone: 08-07-2021 14:55-0400 Heart rate 89 /min John Kevin Abhijeet Work Phone: [facility] DO Work Phone: 08-07-2021 14:55-0400 Systolic blood pressure 114 mm[Hg] John Lentz Work Phone: [facility] DO Work Phone: 08-07-2021 14:55-0400 10 1 John Lentz Work Phone: [facility] DO Work Phone: Comment on above: PHQ-9 TS Encounters Encounter Date Encounter Type Care Provider Facility Start: 07-06-2023 End: 07-06-2023 ambulatory [facility] Start: 06-17-2023 End: 06-17-2023 ambulatory [facility] Work Phone: Start: 06-17-2023 End: 06-17-2023 Patient encounter procedure [facility] Work Phone: Start: 06-07-2023 End: 06-07-2023 ambulatory John Lentz Other [employer] Other Start: 06-07-2023 Telephone encounter John Lentz [facility] Start: 05-17-2023 End: 05-17-2023 ambulatory John Lentz Other [employer] Other Start: 05-17-2023 Telephone encounter John Lentz [facility] Start: 04-30-2023 End: 04-30-2023 ambulatory John Lentz Other [employer] Other Start: 04-30-2023 Telephone encounter John Lentz [facility] Start: 04-29-2023 End: 04-29-2023 ambulatory John Lentz Other [employer] Other Start: 04-29-2023 Office outpatient vi sit 25 minutes John Lentz [facility] Start: 04-29-2023 Telephone encounter John Abhijeet [facility] Start: 04-29-2023 End: 04-29-2023 Patient encounter procedure [facility] Work Phone: Start: 04-27-2023 End: 04-27-2023 ambulatory John Lentz Other [employer] Other Start: 04-27-2023 Telephone encounter John Lentz [facility] Start: 04-15-2023 End: 04-15-2023 ambulatory John Lentz Other [employer] Other Start: 04-15-2023 Office outpatient vi sit 25 minutes John Lentz [facility] Start: 04-15-2023 End: 04-15-2023 Patient encounter procedure [facility] Work Phone: Start: 04-14-2023 End: 04-14-2023 ambulatory John Lentz Other [employer] Other Start: 04-14-2023 Telephone encounter John Lentz [facility] Start: 04-12-2023 End: 04-12-2023 ambulatory [facility] Start: 04-06-2023 End: 04-06-2023 Patient encounter procedure [facility] Work Phone: Start: 04-02-2023 End: 04-02-2023 ambulatory John Lentz Other [employer] Other Start: 04-02-2023 Telephone encounter John Lentz [facility] Start: 03-23-2023 (Televisit) Televisit John Uribe [facility] Start: 03-23-2023 End: 03-23-2023 ambulatory John Lentz Other [employer] Other Start: 03-22-2023 End: 03-22-2023 ambulatory John Lentz Other [employer] Other Start: 03-22-2023 Telephone encounter John Lentz [facility] Start: 03-01-2023 End: 03-01-2023 ambulatory [facility] Start: 03-01-2023 End: 03-01-2023 Office outpatient visit 25 minutes Adelaida Hargrove MD Work Phone: [facility] Comment on above: Arteriosclerosis of coronary artery (Primary Dx); Bilateral carotid bruits; Hyperlipidemia, unspecified hyperlipidemia type; Ischemic cardiomyopathy; Primary hypertension; Stented coronary artery; Chronic obstructive pulmonary disease, unspecified COPD type (CMS/HCC); Wheelchair dependent; Amputation of leg (CMS/HCC); History of right-sided carotid endarterectomy Start: 01-27-2023 End: 01-27-2023 ambulatory John Lentz Other [facility] Other Start: 01-27-2023 Telephone encounter John Lentz [facility] Start: 01-25-2023 End: 01-25-2023 ambulatory John Lentz Other [facility] Other Start: 01-25-2023 Telephone encounter John Lentz [facility] Start: 01-08-2023 End: 01-08-2023 ambulatory John Lentz Other [facility] Other Start: 01-08-2023 Telephone encounter John Lentz [facility] Start: 12-02-2022 End: 12-02-2022 ambulatory John Lentz Other [facility] Other Start: 12-02-2022 Telephone encounter John Lentz [facility] Start: 11-17-2022 End: 11-17-2022 ambulatory Margy Olivas Facility:[facility] Start: 10-20-2022 End: 10-20-2022 ambulatory Margy Olivas Other [employer] Other Start: 10-20-2022 FQHC visit new patient Margy alicia [facility] Start: 09-23-2022 End: 09-23-2022 ambulatory John Lentz Other [facility] Other Start: 09-23-2022 Telephone encounter John Lentz [facility] Start: 09-22-2022 End: 09-22-2022 ambulatory John Lentz Other [facility] Other Start: 09-22-2022 Office outpatient vi sit 25 minutes John Lentz [facility] Start: 09-22-2022 Telephone encounter John Lentz [facility] Start: 08-13-2022 Rx Renewal John Lentz Work Phone: [facility] 250 DO Work Phone: Start: 07-15-2022 End: 07-15-2022 ambulatory John Lentz Other [employer] Other Start: 07-15-2022 Telephone encounter John Lentz [facility] Start: 06-01-2022 End: 06-01-2022 ambulatory John Lentz Other [employer] Other Start: 06-01-2022 Office outpatient vi sit 25 minutes John Lentz [facility] Start: 05-05-2022 End: 05-05-2022 ambulatory John Lentz Other [employer] Other Start: 05-05-2022 Telephone encounter John Lentz [facility] Start: 04-17-2022 Chart Update John Lentz Work Phone: [facility] 250 DO Work Phone: Start: 04-13-[address] Adelaida Griggs ty:[id number] Start: 02-26-2022 Office outpatient vi sit 25 minutes John Lentz Work Phone: [facility] 250 DO Work Phone: Start: 02-26-[address] Adelaida Griggs ty: Start: 12-12-2021 Pre-procedure evalua tion check John Lentz Other [facility] [employer] Other Start: 09-11-2021 Rx Renewal John Lentz Work Phone: [facility] 250 DO Work Phone: Start: 09-08-2021 Rx Renewal John Lentz Work Phone: [facility] 250 DO Work Phone: Start: 09-01-2021 Chart Update John Lentz Work Phone: [facility] 250 DO Work Phone: Start: 08-19-[address] Tracey Pitt Facility:[id number] Start: 08-07-2021 Office outpatient vi sit 25 minutes John Lentz Work Phone: [facility] 250 DO Work Phone: Start: 08-07-[address] John Lentz Facility: Start: 07-21-2021 Rx Renewal John Lentz Work Phone: [facility] 250 DO Work Phone: Start: 01-14-2021 ambulatory [...] for preprocedural laboratory examination DR DORA BELLA [facility] Start: 10-01-2020 End: 10-01-[address] [...] DTaP/Tdap/Td Vaccines (2 - Td or Tdap) [facility] Start: 11-08-2023 End: 11-08-2023 Patient encounter procedure 11/08/2023 1:15 PM EDT Office Visit [facility] [address] [facility] [address] [place] [address] Adelaida Hargrove MD [address] [place] [address] [address] [place], [place] [id number] [facility] Start: 03-01-2023 FUV, Provider: Adelaida Hargrove, Status: Pen, Time: 2:00 PM FUV, Provider: Adelaida Hargrove, Status: Pen, Time: 2:00 PM -[facility] 250 DO Work Phone: Start: 03-01-2023 End: 03-01-2024 Comprehensive metabolic 2000 panel - Serum or Plasma Comprehensive Metabolic Panel Lab Routine Arteriosclerosis of coronary artery Primary hypertension Stented coronary artery Expected: 03/01/2023 (Approximate), Expires: 03/01/2024 [facility] Service Area Work Phone: Comment on above: Expected: 03/01/2023 (Approximate), Expires: 03/01/2024 Start: 03-01-2023 End: 03-01-2024 Lipid 1996 panel - Serum or Plasma Lipid Panel Lab Routine Hyperlipidemia, unspecified hyperlipidemia type Expected: 03/01/2023 (Approximate), Expires: 03/01/2024 [facility] Work Phone: Comment on above: Expected: 03/01/2023 (Approximate), Expires: 03/01/2024 Start: 12-25-2022 Influenza vaccination Influenza Vacc ine (#1) [facility] Start: 04-13-2022 CAROTID, Provider: [facility]TR[facility] 01,[id number], Status: Pen, Time: 10:45 AM CAROTID, Provider: [facility]TR[facility] 01,[id number], Status: Pen, Time: 10:45 AM [facility] Work Phone: Start: 04-13-2022 ECHO, Provider: [facility] ULTRASOUND 01,[id number], Status: Pen, Time: 10:45 AM ECHO, Provider: [facility]TR[facility] 01,[id number], Status: Pen, Time: 10:45 AM [facility] 250 DO Work Phone: Start: 01-29-2022 FUV, Provider: Adelaida Hargrove, Status: Pen, Time: 1:00 PM FUV, Provider: Adelaida Hargrove, Status: Pen, Time: 1:00 PM [facility] 250 DO Work Phone: Start: 08-19-2021 STRESS NUC, Provider : [facility] NUCLEAR 01,[id number], Status: Pen, Time: 12:00 PM STRESS NUC, Provider: [facility] NUCLEAR 01,[id number], Status: Pen, Time: 12:00 PM [facility] 250 DO Work Phone: Start: 08-07-2021 FUV, Provider: Tracey Pitt, Status: Pen, Time: 2:45 PM FUV, Provider: Tracey Pitt, Status: Pen, Time: 2:45 PM [facility] 250 DO Work Phone: Start: 06-08-2021 COVID-19 Vaccine (4 - Moderna series) COVID-19 Vaccine (4 - Moderna series) [facility] Start: 11-24-2018 Pneumococcal Vaccine : 65+ Years (2 - PPSV23 or PCV20) Pneumococcal Vaccine: 65+ Years (2 - PPSV23 or PCV20) [facility] Start: 1993 Zoster Vaccines (1 o f 2) Zoster Vaccines (1 of 2) [facility] Start: 1961 Diabetes mellitus screening Diabetes Screening [facility] Start: 1961 Hepatitis C screening Hepatitis C Sc reerylan [facility] Start: 1943 Lipid panel Lipid Panel [facility] Start: 1943 Medicare Annual Wellness Visit Medicare Annual Wellness Visit (AWV) [facility] Start: 1943 Screening for osteoporosis Bone Density Scan [facility] XR Chest 2 Views [facility] Immunizations Immunization Date Immunization Notes Care Provider Fa cility 04-13-2021 Pfizer-BioNTech COVID-19 Vacc 30 MCG/0.3ML Intramuscular Suspension John Lentz Work Phone: [facility] 07-02-2020 Moderna COVID-19 Vaccine 100 MCG/0.5ML Intramuscular Suspension John Lentz Work Phone: [facility] 06-03-2020 Moderna COVID-19 Vaccine 100 MCG/0.5ML Intramuscular Suspension John Lentz Work Phone: [facility] 09-29-2018 pneumococcal conjuga te vaccine, 13 valent [facility]entz Work Phone: [facility] [place] [facility] DO Work Phone: 08-16-2018 tetanus toxoid, redu luis diphtheria toxoid, and acellular pertussis vaccine, adsorbed Adelaida Hargrove MD Work Phone: [facility] Work Phone: 02-16-2017 influenza virus vaccine, split virus (incl. purified surface antigen) John Lentz Other [employer] Other 02-16-2017 influenza, high dose seasonal, preservative-free John Lentz Work Phone: [facility] [place] [address]71 DO Work Phone: 02-16-2017 influenza virus vaccine, unspecified formulation Adelaida Hargrove MD Work Phone: [facility] 01-24-2017 influenza virus vaccine, unspecified formulation John Lentz Work Phone: [place] [address] DO Work Phone: 01-25-2016 influenza virus vaccine, split virus (incl. purified surface antigen) John Lentz Other [facility] [employer] Other 01-25-2016 influenza virus vaccine, unspecified formulation [facility] 01-25-2016 influenza, high dose seasonal, preservative-free John Lentz Work Phone: [place] [address] DO Work Phone: 03-02-2015 influenza, injectabl e, quadrivalent, preservative free John Lentz Work Phone: [place] [address] DO Work Phone: 03-02-2015 tetanus and diphther ia toxoids, adsorbed, preservative free, for adult use (5 Lf of tetanus toxoid and 2 Lf of diphtheria toxoid) John Lentz Other [facility] 02-12-2009 pneumococcal conjuga te vaccine, 7 valent John Lentz Work Phone: [place] [address] DO Work Phone: 01-30-2009 influenza virus vaccine, whole virus John Lentz Work Phone: [place] [address] DO Work Phone: Payers Date Payer Category Payer Unknown [id number] 2017 Medicaid [id number] 2016 Unknown 2016 Unknown [id number] 2008 Medicare MEDICARE MEDICAR E PART A AND B [id number] 2008-Present [address] [place] [address] [id number] 1959 Medicare [id number] 1959 Self-pay 1959 Unknown [id number] 1943 Unknown [id number] [id number]3 1943 Unknown [id number] 2.16.840.1.645691.3.579.2.593 1943 Unknown [id number] 2.16.840.1.091662.3.579.2.593 1943 Unknown [id number] 2.16.840.1.576656.3.579.2.593 1943 Unknown [id number] 2.16.840.1.886627.3.579.2.593 1943 Unknown [id number] 2.16.840.1.878559.3.579.2.593 1943 Unknown [id number] 2.16.840.1.836098.3.579.2.593 1943 Unknown [id number] 2.16.840.1.604235.3.579.2.593 1943 Unknown [id number] 2.16.840.1.384569.3.579.2.593 1943 Unknown [id number] 2.16.840.1.040787.3.579.2.593 1943 Unknown [id number] 2.16.840.1.486557.3.579.2.593 1943 Unknown [id number] 2.16.840.1.214103.3.579.2.593 1943 Unknown [id number] 2.16.840.1.936422.3.579.2.593 1943 Unknown [id number] 2.16.840.1.704090.3.579.2.593 1943 Unknown [id number] 2.16.840.1.372040.3.579.2.356 1943 Unknown [id number] 2.16.840.1.294471.3.579.2.356 1943 Unknown [id number] 2.16.840.1.747459.3.579.2.8 1943 Unknown [id number] 2.16.840.1.544517.3.579.2.1068 1943 Unknown [id number] 2.16.840.1.228185.3.579.2.1244 Unknown [id number] 2.16.840.1.637623.3.579.2.593 Unknown [id number] 2.16.840.1.984194.3.579.2.593 Unknown [id number] 2.16.840.1.906971.3.579.2.531 Social History Date Type Detail Facility Start: 08-07-2021 End: 03-01-2023 Daily caffeine consumption, 2-3 servings a day Daily caffeine consumption, 2-3 servings a day [facility] Comment on above: Quit cigs 2009; 1 cup of coffee harshil y; Start: 08-07-2021 End: 03-01-2023 Sex Assigned At [facility] Start: 10-20-2022 End: 03-01-2023 Tobacco smoking status NHIS Ex-smoker [facility] End: 04-26-2009 History of tobacco use Current smoker [facility] Work Phone: End: 04-26-2009 History of tobacco use Cigarette Smoker [facility] Work Phone: Start: 03-01-2023 Tobacco use and exposure Smokeless tobacco non-user [facility] Work Phone: Start: 03-01-2023 Alcohol intake Lifetime non-d annemarie (finding) [facility] Work Phone: Start: 1945 Sex Assigned At Not on file [facility] Work Phone: Start: 02-19-2023 End: 03-01-2023 Exposure to SARS-CoV-2 (event) Not sure [facility] Start: 1945 Sex Assigned At Female F [facility] Medical Equipment Procedure Code Equipment Code Equipment [...] Status Date Assessment Result Facility 08-07-2021 PHQ-9 [id number] Moderate (10-14) [facility] 250 DO Work Phone: Clinical Notes 07-25-2018 to 07-06-2023 Note Date & Type Note Facility 07-06-2023 Note [place] Electrophysiology Consult Note Reason for visit: afib, [...] with cardiology and is switching to [facility]. She was admitted to [facility] with new onset A-fib, alcohol withdrawal which was treated with benzodiazepines, sepsis, respiratory failure, COPD exacerbation all likely due to COVID infection, she was discharged 04/01/2023. 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 She states she has stopped drinking since [...] on file Intimate Partner Violence: Unknown (06/18/2023) [place] Safety & Environment Fear of Current or [...] normal affect Gordo (more content not included)... [facility] 06-07-2023 Evaluation note Encounter Date Diagnosis Assessment Notes May, COPD, moderate (ICD-10 - J44.9) [facility] Other 01-22-2024 Evaluation note* Encounter Date Diagnosis Assessment Notes Treatment Notes Treatment Clinical Notes Apr, Chronic obstructive pulmonary disease, unspecified COPD type (ICD-10 - J44.9) [facility] Other 01-05-2024 Evaluation note* Encounter Date Diagnosis Assessment Notes Treatment Notes Treatment Clinical Notes Apr, Chronic obstructive pulmonary disease, unspecified COPD type (ICD-10 - J44.9) [facility] Other 01-04-2024 Evaluation note* Encounter Date Diagnosis Assessment Notes Treatment Notes Treatment Clinical Notes Apr, Chronic pain (ICD-10 - G89.29) [facility] Other 01-04-2024 Evaluation note* Encounter Date Diagnosis [...] to AKA history. Sees pain managment in [place] Apr, Pneumonia, unspecified organism (ICD-10 - J18.9) Pulmonolary consult. Improving. Apr, Nosocomial condition (ICD-10 - Y95) Apr, Atrial fibrillation with RVR (ICD-10 - I48.91) presently in regular rhythm [facility] Other 12-21-2023 Evaluation note* Encounter Date Diagnosis Assessment Notes Treatment Notes Treatment Clinical Notes Mar, Acute UTI (ICD-10 - N39.0) UA will be taken to hospital Pt cannot provide UA presently. We suspect UTI due to her recent confustion. Order printed and given to daughter. She will take it to [facility] when she goes to work tomorrow. Mar, Cellulitis of right leg (ICD-10 - L03.115) Patient is advised to stay well hydrated. Finish the full antibiotic until gone. Patient is advised to add a probiotic to their diet such as yogurt. Follow up to let us know if symptoms have improved Mar, Chronic constipation (ICD-10 - K59.09) samples of miralax given [facility] Other 12-20-2023 Evaluation note* Encounter Date Diagnosis Assessment Notes Treatment Notes Treatment Clinical Notes Mar, Confusion (ICD-10 - R41.0) [facility] Other 12-18-2023 [facility] Note-stable, concerns for hypotension given first BP in office [facility] Note-recovered EF per recent echo 03/2023 EF 55-60% -NYHA unable to asses given wheel chair bound and left AKA< she does state she is able to do basic ADLs -GDMT: stop lisionpril given hypotension, stop coreg, Will start toprol xl 25mg daily and do event monitor to watch for RVR -prioritizing rate control at this time -continue aldactone 25mg, start toprol xl 25mgUnOhio[facility]12-18-2023 Note-s/p left [facility]12-18-2023 Note-noted in hx, sees a vascular [facility] 04-12-2023 Note-s/p stent to RCA and ostial left main in 2019 -will increase to high intensity statin 40mg lipitor given she is done drinking -stop ASA and start eliquis 2.5mg BID for AF, ct plavix -noted to not be a good candidate for CABG given resp diseaseUnOhioHealth [facility] Hospital12-18-2023 Note- stable, she is on supplemental O2 as needed - she may not be a great candidate for [facility]iod[facility]one[facility]12-18-2023 NoteNew patient here to establish care. She was recently discharged from [facility] for new onset afib. AC was not started. She has a right carotid [place] [facility] [place] She does not still follow with vascular surgeon. She is transferring cardiology care [facility] to [place]. Review of Systems Cardiovascular: Positive for dyspnea on exertion and leg swelling (RLE). Respiratory: Positive for cough and shortness of breath. All other systems reviewed and are negative.[facility] 04-12-2023 NoteUT Electrophysiology Consult Note Reason [...] with cardiology and is switching to [facility] She was admitted to [facility] with new onset A-fib, alcohol withdrawal which was treated with benzodiazepines, sepsis, respiratory failure, COPD exacerbation all likely due to COVID infection, she was discharged 04/01/2023. She is here for hospital follow-up for A-fib and changing master fisher She states she has stopped drinking since [...] feeling safe in r (more content not included)...[facility]11-28-2023 Evaluation note* Encounter Date Diagnosis Assessment [...] such as patterns or other associated symptoms [facility] Other 11-27-2023 Evaluation note* Encounter Date Diagnosis Assessment Notes Treatment Notes Treatment Clinical Notes Feb, Chronic pain (ICD-10 - G89.29) [facility] Other 11-06-2023 History of Present illness Narrative* [...] List Diagnosis Date Noted Amputation of leg ([facility]) 03/01/2023 History of right-sided carotid endarterectomy 03/01/2023 Arteriosclerosis of coronary artery 02/26/2023 Bilateral carotid bruits 02/26/2023 Chronic obstructive pulmonary disease ([facility]) 02/26/2023 Hyperlipidemia 02/26/2023 Ischemic cardiomyopathy 02/26/2023 Primary [...] vertebral flow Problems addressed today included atherosclerotic [place] vessel coronary artery disease, hyperlipidemia, cerebrovascular disease, [...] MONTHS Adelaida Hargrove MD [facility] Work Phone: 1(203) 199-580111-06-2023 Instructions* Patient Instructions* Tran Morales LPN - [...] time of your visit. documented [facility] Work Phone: 1(405) 271-343906-27-2023 Evaluation note* Encounter Date Diagnosis Assessment Notes [...] discussion, agrees with plan, denies any questions. [facility] Other 05-30-2023 Evaluation note* Encounter Date Diagnosis Assessment Notes Treatment Notes Treatment Clinical Notes August, Acute bacterial conjunctivitis of both eyes (ICD-10 - H10.33) [place] eye is contagious. Wash hands frequently and try not to rub eyes. Use warm wash cloth to keep them clean or to remove discharge from eyes. Use drops until eyes are clear then 3 more days August, PAD (peripheral artery disease) (ICD-10 - I73.9) Pt agrees to referral to [facility]. 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 She is established w pain management for this problem August, Acute non-recurrent maxillary sinusitis (ICD-10 - J01.00) agrees to antibiotic for sore throat. August, History of left abov e knee amputation (ICD-10 - Z89.612) August, Chronic pain (ICD-10 - G89.29) Reviewed OAR[facility] report. Refilled rx. [facility] Other 05-30-2023 Evaluation note* Encounter Date Diagnosis Assessment Notes Treatment Notes Treatment Clinical Notes August, Chronic pain (ICD-10 - G89.29) [facility] Other 02-06-2023 Evaluation note* Encounter Date Diagnosis [...] call when pain med refill is needed. [facility] Other 04-14-2022 History of Present illness Narrative* [...] Ejection fraction is typically been estimated at ubnahz63%. She indicates that her breathing has progressively worsened again. She does not believe there is been really any change to her pulmonary status. [facility] 250 DO Work Phone: 1(822) 162-949004-14-2022 History of Present illness Narrative* Previously seen [...] Ejection fraction is typically been estimated at itihke63%. She indicates that her breathing has progressively [...] profile lipid profile prior to next visit. -[facility] 250 DO Work Phone: 1(384) 770-894604-14-2022 History of Present illness Narrative* Previously seen [...] profile lipid profile prior to next visit. [facility] Work Phone: 1(371) 508-706701-28-2022 NoteHNO ID: [id number] Author: Chvaez Dillard MD Service: ? Author Type: Physician [...] procedures: Seen pain management in [facility] Did an injection with no relief [...] reproduction bilaterally. Extremities: Peripheral (more content not included)...[facility] 12-09-2020 NotePROCEDURE: MRI THIGH LT WO [...] Electronically authenticated by: JOSIE PARIS Date: 2020-12-09 16:49[facility]08-05-2021 NoteHISTORY AND PHYSICAL EXAMINATION HISTORY: This [...] be doing so in the near future. [facility] Signed and Approved by: ROXI MCCLENDON 11/28/2020 09:43:00[facility]08-05-2021 NoteOPERATIVE NOTE OPERATION DATE: 11-28-20 ANESTHETIC: [...] was injected into the anterior chamber and [facility] cell sponge was used to check the wounds to be water tight. One drop of apraclonidine and 1 drop of prednisolone acetate were placed into the eye and shield was placed over top. The patient was sent to the postoperative area in satisfactory condition to followup the following day for postoperative care. [facility] Signed and Approved by: ROXI MCCLENDON 12/26/2020 11:09:00[facility]07-06-2021 NotePAIN MANAGEMENT Consultation Date: 10-29-20 CHIEF [...] periosteum of the femur. cc:Dr. John Lentz. [facility] Signed and Approved by: DR DORA BELLA 11/05/2020 12:13:00[facility]07-01-2021 NoteHISTORY AND PHYSICAL EXAMINATION HISTORY: The [...] and go forward with her elective procedure. [facility] Signed and Approved by: ROXI MCCLENDON 10/24/2020 11:46:00[facility]07-01-2021 NoteOPERATIVE NOTE OPERATION DATE: 10-24-20 ANESTHETIC: [...] was injected into the anterior chamber and [facility] cell sponge was used to check the wounds to be water tight. One drop of apraclonidine and 1 drop of prednisolone acetate were placed into the eye and shield was placed over top. The patient was sent to the postoperative area in satisfactory condition to followup the following day for postoperative care. [facility] Signed and Approved by: ROXI MCCLENDON 11/27/2020 16:58:00[facility]06-22-2021 NotePAIN MANAGEMENT Consultation Date: 10-15-20 CHIEF COMPLAINT: Left ityuf-uae-myul amputation stump pain. HISTORY OF PRESENT ILLNESS: [...] 2. Lumbar spondylosis. 3. Status post left zopim-tsp-silc amputation 2018. 4. Stump pain. 5. Neuromatous [...] daughter understand and would like to proceed. [facility] Signed and Approved by: DR DORA BELLA 10/29/2020 10:44:00[facility]06-22-2021 NotePAIN MANAGEMENT PROCEDURE NOTE Date: 10-15-20 PRE AND POST PROCEDURE DIAGNOSIS: Neuromatous stump pain, neuromatous pain status post left awqgi-gvu-gwij amputation. PROCEDURE NAME:Neuroma stump injection. PROCEDURE: Subsequent [...] pain symptomatology that would have been present. [facility] Signed and Approved by: DR DORA BELLA 10/29/2020 10:44:00[facility]04-26-2021 NotePAIN MANAGEMENT Consultation Date: 08-19-20 HISTORY [...] baclofen. 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 On July 30 the [...] her pain. Dictated by Hemant Red APRN [facility] Signed and Approved by: HEMANT RED 08/26/2020 16:35:00[facility]03-08-2021 NoteCONSULTATION Consultation Date: 07/01/2020 PAIN MANAGEMENT CONSULTATION HISTORY OF PRESENT ILLNESS: This is a very pleasant 75-year-old female patient who comes to the [facility] for the very first time. [...] patient had stents July of 2018 at [facility]. Originally the patient was placed on Plavix [address] Arnold; however, Dr. Pitt in [place] took over the Plavix medication. The patient [...] the lumbar x-ray is without any deformities. [facility] Signed and Approved by: HEMANT RED 07/08/2020 17:02:00[facility]03-08-2021 NoteCONSULTATION Procedure Date: 07/01/2020 PROCEDURE NOTE: [...] signs were obtained and were stable. . [facility] Signed and Approved by: HEMANT RED 07/08/2020 17:03:00[facility]04-01-2019 History of Present illness Narrative* Mrs. [...] Ejection fraction is typically been estimated at aqmxge56%. She indicates that her breathing has progressively [...] is completed. No change made to medications. -[facility] DO Work Phone: Evaluation noteNo [facility] [employer] Other Evaluation note* Diagnosis Arteriosclerosis of coronary [...] right-sided carotid endarterectomy documented in this encounter [facility] Work Phone: Evaluation note* Diagnosis Onset Date Resolution Status Pneumonia acute [facility] Work Phone: History general Narrative [...] Hospitalization History Suicide Hospitalization History See above [employer] Other History general Narrative - Reported* Type [...] Hospitalization History Suicide Hospitalization History See above [employer] Other Reason for referral (narrative)* Consultation (Routine) - Authorized Specialty Diagnoses / Procedures Referred By Nabilaac t Referred To Contact Cardiology Diagnoses Arteriosclerosis of coronary artery Procedures Follow Up In Cardiology Adelaida Hargrove MD [address] [address] [place] [address] Adelaida Hargrove MD [address] [place] [address] Referral ID Status Reason Start Date Expiration Date V isits Requested Visits Authorized [id number] Authorized 03/01/2023 02/29/2024 1 1 [facility] Work Phone: Summary Purpose Family History No [...] disease, unspecified COPD type (J44.9) Referral Organization [facility] Sagar parekh Referring Provider First Name John Referring Provider Last Name Abhijeet Referring Provider Specialty Family [facility] Referred Organization [facility] Referred Provider Tahir Royal Referred Address [address], [place],[address] Referred Provider Specialty Pulmonary Di seases Referral Priority Routine General Notes Dai Aaron 07:48:28 AM >received today, attachments made, notes locked, referral faxed Clinical Notes p: [phone] f: [id number] Reason *Waiting for appt Former pt of Dr. Mejia - now has swelling and discoloration in R lower leg. Hx of L AKA Diagnosis 1 PAD (peripheral yuli ry disease) (I73.9) Referral Organization [facility] Medical C iglesia Referring Provider First Name John Referring Provider Last Name Abhijeet Referring Provider Specialty Family [facility] Referred Organization [facility] [place] Referred Provider Jaspreet Ventura Referred Address [address] [facility] [address] ,[place], [id number] Referred Provider Specialty Vascular April christianne Referral [...] DATE CREATED AUTHOR AUTHOR'S ORGANIZ ATION 07/18/2021 [facility] DATE CREATED AUTHOR AUTHOR'S ORGANIZ ATION 02/27/2022 [facility] DATE CREATED AUTHOR AUTHOR'S ORGANIZ ATION 02/27/2022 [employer] DATE CREATED AUTHOR AUTHOR'S ORGANIZ ATION 04/17/2022 [facility] DATE CREATED AUTHOR AUTHOR'S ORGANIZ ATION 12/18/2022 [facility] DATE CREATED AUTHOR AUTHOR'S ORGANIZ ATION 03/02/2023 [facility] DATE CREATED AUTHOR AUTHOR'S ORGANIZ ATION 07/07/2023 [facility] REASON FOR VISIT (unrecogniz ed section and content) Reason Comments Follow-up 1 year Care Teams (unrecognized sec tion and content) [employer] As[employer]er Relationship Specialty Start Date End Date John Lentz MD [address] [place] [address] [address] [place] [address] PCP - General 11/03/18 Team Status: Active [...] ON THE PRIMARY CLINICAL RECORDS. [facility] [employer] provides no warranty or guarantee of the accuracy or completeness of information in this document.
--- NOTE | 2023-08-31 09:10 | P.HP_ITS ---
<Statement entered by Shaikh Jordy MD - 08/31/23 15:43> This documentation has been reviewed and approved. Patient seen and examined. Case discussed with nursing staff, Emergency Room provider. Treatment plan and case discussed with Molly. Patient's medical chart and old records reviewed. Agree with documentation and clinical decision making. Patient presented with worsening shortness of breath for past couple of days. Along with shortness of breath, she reports nausea, vomiting, generalized abdominal discomfort and constipation. She is also complaining of right lower extremity pain along with swelling.Patient was profoundly hypoxic and Emergency Room and was admitted to ICU after initial workup was consistent with sepsis secondary to bilateral pneumonia. She is currently on high flow oxygen and resting comfortably with no evidence of respiratory distress. Exam: Sitting on bed, comfortable, frail, underweight Normal RR, no resp distress, diminished lung sounds, no sig wheezing but rhonchi heard all over Normal HR, no mumur noted Right leg appears red/dusky and cold to touch. Doppler pulses appreciable Assessment and plan Sepsis secondary to bilateral pneumonia Acute on chronic respiratory failure with hypoxia Acute kidney injury Chronic heart failure with preserved ejection fraction. Peripheral vascular disease Right lower extremity critical limb ischemia ruled out by CTA Atrial fibrillation No evidence of critical limb ischemia on CTA abdomen with aortic runoff. Patient on broad-spectrum antibiotics. Currently on IV Zyvox and Zosyn. CT chest to follow up on previous lung abscess - shows multifocal infiltrates but no lung abscess. C/w systemic steroids, inhaled bronchodilators for chronic obstructive pulmonary disease exacerbation. Wean off oxygen as tolerated. 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 She also reports abdominal pain and constipation with more than 2 days since her last bowel movement. She became increasingly short of breath over the last 2 days and presented to the ED for further evaluation. Workup in the ED revealed leukocytosis (18.3), lactic acidosis (2.9), BHUMIKA (BUN 17, CR 1.1, GFR 48), and an elevated BNP (4949). She was hypoxic on arrival on her home O2 of 3 L. Her O2 sats still dropped to as low as 83% on 6 L and she was placed on Vapotherm high flow O2 in the ED. A chest x-ray revealed marked right and moderate left pulmonary infiltrates. He was admitted to the hospitalist service as an inpatient for bilateral pneumonia, COPD exacerbation, and acute on chronic respiratory failure. At the time of my exam the patient is resting in bed with Vapotherm O2 delivery in place. She is able to complete sentences and is not in respiratory distress. She appears dehydrated despite her elevated BNP and she was given a gentle fluid bolus in the ED d/t her BHUMIKA and lactic acidosis. She has known PAD that resulted in her L AKA recently. Her R foot is cool, dusky/red, swollen, and has a small necrotic area on the great toe. The pt reports that this foot is often severely swollen and painful. We will initiate a workup to r/o DVT or ischemia of her RLE in addition to treatment of the above conditions. 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 ?G89.21 - Chronic pain due to trauma (ICD-10) ?Z89.9 - Acquired absence of limb, unspecified (ICD-10) Chronic a-fib ?I48.20 - Chronic atrial fibrillation, unspecified (ICD-10) Hyperglycemia ?R73.9 - Hyperglycemia, unspecified (ICD-10) Community acquired pneumonia ?J18.9 - Pneumonia, unspecified organism (ICD-10) Right lower lobe lung mass ?R91.8 - Other nonspecific abnormal finding of lung field (ICD-10) Acute on chronic diastolic (congestive) heart failure ?I50.33 - Acute on chronic diastolic (congestive) heart failure (ICD-10) HTN (hypertension) ?I10 - Essential (primary) hypertension (ICD-10) Acute and chronic respiratory failure with hypoxia ?J96.21 - Acute and chronic respiratory failure with hypoxia (ICD-10) COPD (chronic obstructive pulmonary disease) ?J44.9 - Chronic obstructive pulmonary disease, unspecified (ICD-10) Right leg injury ?S89.91XA - Unspecified injury of right lower leg, initial encounter (ICD-10) Pneumonia ?J18.9 - Pneumonia, unspecified organism (ICD-10) Chronic respiratory failure with hypoxia ?J96.11 - Chronic respiratory failure with hypoxia (ICD-10) Alcohol abuse ?F10.10 - Alcohol abuse, uncomplicated (ICD-10) COVID-19 ?U07.1 - COVID-19 (ICD-10) HLD (hyperlipidemia) ?E78.5 - Hyperlipidemia, unspecified (ICD-10) PAD (peripheral artery disease) ?I73.9 - Peripheral vascular disease, unspecified (ICD-10) Oxygen dependent ?Z99.81 - Dependence on supplemental oxygen (ICD-10) Surgical History (Updated 04/22/23 @ 14:44 by Vanita Maloney) History of carpal tunnel surgery ?Z98.890 - Other specified postprocedural states (ICD-10) H/O: hysterectomy ?Z90.710 - Acquired absence of both cervix and uterus (ICD-10) Amputated left leg ?S88.912A - Complete traumatic amputation of left lower leg, level unspecified, initial encounter (ICD-10) Social History Within the past year, how often did you have a drink containing alcohol: 4 or more times a week Within the past year, how many standard drinks containing alcohol did you have on a typical day: 3 or 4 Within the past year, how often did you have six or more drinks on one occasion: weekly Total score: 5 Score interpretation: A score of 3 or more indicates drinking is likely to affect patient's safety. Smoking status: Former smoker Highest level of school completed/degree received: high school graduate Do you think of yourself as: straight/heterosexual Gender Identity: female Meds Home Medications and Allergies Home Medications ?Medication ?Instructions ?Recorded ?Confirmed ?Type docusate sodium 100 mg capsule 100 mg PO BID 03/27/23 08/31/23 History duloxetine 60 mg capsule,delayed 60 mg PO DAILY 03/27/23 08/31/23 History release gabapentin 800 mg tablet 800 mg PO TID 03/27/23 08/31/23 History nitroglycerin 0.4 mg sublingual 0.4 mg sublingual Q5M PRN chest 03/27/23 08/31/23 History tablet pain pantoprazole 40 mg tablet,delayed 40 mg PO DAILY 03/27/23 08/31/23 History release tizanidine 4 mg tablet 4 mg PO TID PRN muscle spasticity 03/27/23 08/31/23 History apixaban 2.5 mg tablet (Eliquis) 2.5 mg PO BID 04/22/23 08/31/23 History atorvastatin 40 mg tablet 40 mg PO QAM 06/01/23 08/31/23 History spironolactone 25 mg tablet 25 mg PO DAILY 06/01/23 08/31/23 History albuterol sulfate 90 mcg/actuation 2 puff inhalation Q4H PRN 08/31/23 08/31/23 History aerosol inhaler shortness of breath or wheezing amiodarone 200 mg tablet 200 mg PO DAILY 08/31/23 08/31/23 History fluticasone fur. 200 mcg-umeclid 1 inh inhalation Q24H 08/31/23 08/31/23 History 62.5 mcg-vilant 25 mcg inhalat.powder (Trelegy Ellipta) furosemide 20 mg tablet 20 mg PO DAILY PRN edema 08/31/23 08/31/23 History metoprolol succinate 25 mg 25 mg PO DAILY 08/31/23 08/31/23 History tablet,extended release 24 hr nystatin 100,000 unit/gram topical 1 applic topical BID 08/31/23 08/31/23 History powder ondansetron HCl 4 mg tablet 4 mg PO TID PRN nausea and vomiting 08/31/2308/30 History Allergies Allergy/AdvReac Type Severity Reaction Status Date / Time vancomycin Allergy Intermediate Rash Verified 08/31/23 05:55 Exam Constitutional Vital Signs, click to edit/add: Last Vital Signs Temp 99.1 F 08/31/23 05:48 Pulse 75 08/31/23 07:15 Resp 17 08/31/23 07:30 BP 108/70 08/31/23 07:00 Pulse Ox 93 L 08/31/23 08:25 O2 Del Method Vapotherm 08/31/23 08:25 O2 Flow Rate 6 08/31/23 06:29 Common normals: no apparent distress, oriented x3, alert and well nourished General appearance: cooperative Orientation/consciousness: Yes awake HENMT Common normals: normocephalic, head/scalp atraumatic, hearing grossly normal bilaterally and external nose normal Mouth: moist mucous membranes not abnormal (Dry, fissured) Eye Common normals: PERRL, EOMs intact bilaterally, conjunctivae normal and no scleral icterus Alignment: alignment normal Eyelid: eyelids normal Neck & C-Spine Common normals: full ROM, supple and no JVD Chest Common normals: inspection of chest normal Chest: symmetrical chest wall rise Respiratory Common normals: normal respiratory effort, no retractions, no use of accessory muscles and clear to auscultation bilaterally Effort & inspection: able to speak in complete sentences Auscultation: diminished lung sounds (Sl diminished throughout); no rales, no rhonchi and no wheezes Cardio Common normals: no JVD, regular rate, S1 normal heart sound, S2 normal heart sound, no gallops, no clicks, no murmurs, no rub and peripheral pulses 2+ throughout Rhythm: abnormal rhythm irregularly irregular Peripheral pulses: other (R foot dusky, cool, trace palpable pulses dors.pedis & Post tib) Other: Necrotic spot medial, distal R gr. toe GI Common normals: Normal to inspection, nondistended, normoactive bowel sounds present, soft to palpation, no hepatosplenomegaly, no masses and no bruits Palpation: tender (Mild, diffuse BUQ) Bladder/kidney exam: bladder normal to palpation Back & Pelvis Common normals: thoracic and lumbar spine normal to inspection Extremity General: cyanosis (R toes); no clubbing Right lower extremity: foot and digits (cool, dusky, barely palp pulses, necrotic spot Gr toe) Left lower extremity: knee joint (s/p AKA) Neuro Nicolas Coma Scale: GCS not evaluated Common normals: CN's II-XII intact bilaterally, moves all extremities, no focal motor deficits and no sensory deficits noted Speech: speech normal Motor exam: strength 5/5 throughout Psych Common normals: mental status grossly normal, thought process normal, affect normal and activity/motor behavior normal Results Labs Labs: Short CBC 08/31/23 Range/Units 06:07 WBC 18.3 H (4.0-11.0) 10^3/uL Hgb 11.8 L (12.0-16.0) g/dL Hct 38.9 (36.0-48.0) % Plt Count 479 H (150-450) 10^3/uL BMP 08/31/23 06:07 Sodium 133 L Potassium 4.1 Chloride 97 L Carbon Dioxide 22.9 BUN 17.0 Creatinine 1.10 H Glucose 112 H Calcium 8.8 ABG ABG results: 08/31/23 08/31/23 06:07 07:40 ABG pH 7.365 ABG pCO2 40.4 ABG pO2 91.6 ABG HCO3 23.1 ABG O2 Saturation 97.1 ABG Base Excess -2.3 L VBG pH 7.319 L VBG pCO2 42.5 Pulse Oximetry Attestation: I have reviewed the pertinent pulse oximetry results. Imaging Chest x-ray: Attestation: I have reviewed the pertinent imaging results. Radiologist's impression: IMPRESSION: 1. New marked right and moderate left pulmonary infiltrates suggestive of pneumonia. 2. Persistent right upper lobe opacity suspected be loculated fluid within the major fissure. Assessment and Plan Assessment and Plan (1) Pneumonia: Assessment and Plan: Acute * Adm inpatient * We expect greater than a 2 midnight stay for medically necessary hospital care including IVF, IV ABX, High-flow O2 delivery, and specialty pulmonology care * Bilateral infiltrates on CXR imaging * IVPB Zosyn and Zyvox for broad gram neg and gram pos coverage in a pt at risk for multiple pathogens * Duo-nebs q4h PRN * Guaifenesin BID and OPEP therapy for sputum mobilization * Resp panel neg * See COPD exac and Ac resp failure below * CBC, CMP daily Qualifiers: Laterality: unspecified laterality Lung location: unspecified part of lung Pneumonia type: due to unspecified organism Qualified Code(s): J18.9 - Pneumonia, unspecified organism (2) Sepsis: Assessment and Plan: Acute * AEB: * criteria: SOFA score of 3 (PF ratio of 106 on Vapotherm support), Source bilat pneumonia * Lactic acidosis - 2.9 * Down to 1.8 after gentle IVF * Gentle NS at 50 ml/hr to avoid fluid overload in a pt w/ CHF and elevated BNP (9369) * See ABX above * CBC, CMP daily Qualifiers: Acute respiratory failure type: with hypoxia Sepsis acute organ dysfunction status: with acute organ dysfunction Sepsis type: sepsis due to unspecified organism Severe sepsis acute organ dysfunction type: acute respiratory failure Severe sepsis shock status: without septic shock Qualified Code(s): A41.9 - Sepsis, unspecified organism; R65.20 - Severe sepsis without septic shock; J96.01 - Acute respiratory failure with hypoxia (3) Acute infective exacerbation of chronic obstructive airway disease: Assessment and Plan: Acute * Solumedrol 125 mg x 1 given in ED, follow with 40 mg q8h * Duo-nebs q4h PRN * ABX as above * O2 to keep sats above 90% (4) Acute and chronic respiratory failure with hypoxia: Assessment and Plan: Acute * 2/2 to acute bilat pneumonia and COPD exacerbation * c/s Pulmonology - we appreciate Dr Royal's assistance with this pt's care * CT chest now * O2 supplementation per Vapotherm, 60% FIO2, 40L * Baseline O2 supplementation at home is 2-3L (5) Constipation: Assessment and Plan: Acute * Acute abdomen series XR to assess for constipation/ileus/SBO * Consider CT abdomen pending clinical course * Miralax scheduled, prn Senna plus if no evidence of SBO (6) Intractable vomiting with nausea: Assessment and Plan: Acute * Unclear etiology - possible SE of amiodarone (recently added medication to HR control regimen) * IVP Zofran PRN * See constipation above (7) BHUMIKA (acute kidney injury): Assessment and Plan: Acute Laboratory Tests 08/31/23 06:07 BUN 17.0 Creatinine 1.10 H Est GFR (Non-Af Amer) 48 L * Baseline normal renal fx * BUN 7-24 * CR 0.7-0.89 * GFR > 60 * Suspect 2/2 to dehydration from N/V and poor oral intake * Gentle NS IVF at 50 ml/hr to avoid fluid overload in pt w/ diastolic CHF and elevated BNP * Hold home spironolactone and PRN lasix d/t renal toxicity * CMP daily (8) Congestive heart failure: Assessment and Plan: Chronic * HFpEF * Last echo 06/02/23 - preserved LVEF of 65-70%, normal RV size and systolic function, biatrial enlargement, trivial pericardial effusion. Indeterminate diastolic function d/t chronic a-fib * Consider repeat Echo pending clinical course * BNP elevated in ED - 4949 * Pt appears clinically dry on exam, no evidence of fluid overload * Gentle IVFs to avoid fluid overload * Daily weights, strict I&O * Hold home spironolactone and PRN lasix for now d/t mild BHUMIKA * Daily BNP x 3 days Qualifiers: Heart failure chronicity: acute Heart failure type: unspecified Qualified Code(s): I50.9 - Heart failure, unspecified (9) HTN (hypertension): Assessment and Plan: Chronic * Continue home Toprol XL Qualifiers: Hypertension type: primary hypertension Qualified Code(s): I10 - Essential (primary) hypertension (10) PAD (peripheral artery disease): Assessment and Plan: Chronic * Clinical concern for ischemia of RLE * R foot dusky, cool, swollen, cyanotic nail beds, small necrotic area to medial gr toe * CTA w/ run-off now * Consider Vascular Surgery consult pending clinical course * Venous doppler study to also r/o DVT - unlikely d/t home Eliquis dosing, but possible (11) Chronic a-fib: Assessment and Plan: Chronic * Continue home amiodarone and toprol XL for rate control * Continue home Eliquis for CVA prevention (12) 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
--- NOTE | 2023-08-31 09:25 | CT_ITS ---
[address] [address] Patient Name: SANCHEZ SAMSON MRN: [id number] date: 1945 Sex: F Assigned Patient Location: ICU Current Patient Location: ICU Accession/Order Number: [id number] Exam Date: 08/31/2023 10:35 Report Date: 08/31/2023 12:07 At the request of: URIAH OCAMPO Procedure: CT angio abd aorta runoff EXAMINATION: CT angio abd aorta runoff HISTORY: R foot cool, painful, swollen COMPARISON: No relevant comparison available. TECHNIQUE: After obtaining the patient's consent, CT images of the abdomen, pelvis, and lower extremities were obtained without and with non-ionic intravenous contrast material. Multi-planar reformatted/3-D images were created to optimize visualization of vascular anatomy. Dose reduction techniques were achieved by using automated exposure control and/or adjustment of mA and/or kV according to patient size and/or use of iterative reconstruction technique. FINDINGS: AORTA: Moderate atherosclerotic disease without aneurysm or dissection. ILIAC: Endograft stents within common and external iliac arteries bilaterally; minimal narrowing on right, moderate-marked narrowing within distal aspect of the left external iliac artery stent. RIGHT LEG: Scattered focal areas of atherosclerotic disease causing moderate narrowing within the femoral, popliteal, and calf arteries. LEFT LEG: Complete occlusion of common femoral artery and occlusion of the femoral artery bypass graft throughout its length beginning at its takeoff from the common femoral artery. Deep femoral artery is patent. Amputation of distal lower left extremity just above level of the knee. LUNG BASES: Bilateral pleural effusions, 3.1 cm in thickness on right, 0.4 cm on left. Associated moderate bibasilar atelectasis versus infiltrates. Cardiomegaly. LIVER: Fatty infiltration. BILIARY: No visible dilatation or calcification. PANCREAS: No lesion, fluid collection, ductal dilatation, or atrophy. SPLEEN: No enlargement or focal lesion. ADRENALS: No mass or enlargement. KIDNEYS: No mass, obstruction, or calcification. BOWEL/MESENTERY: No visible mass, obstruction, or bowel wall thickening. Mild diverticulosis of distal colon. RETROPERITONEUM: No mass or adenopathy. PELVIC NODES: No adenopathy. URINARY BLADDER: No visible focal wall thickening, lesion, or calculus. PELVIC ORGANS: No visible mass. Pelvic organs appropriate for patient age. ABDOMINAL WALL: No mass or hernia. BONES: No bony lesion or fracture. OTHER: CT/CT angio abd aorta runoff IMPRESSION: 1. Moderate atherosclerotic disease of aorta and scattered areas of moderate atherosclerotic narrowing of right lower extremity arteries; no occlusion or suspected significant stenosis. 2. Complete occlusion of left leg femoral artery and subsequent femoral artery bypass graft. Prior above-knee amputation of left leg. 3. Bilateral pleural effusions and basilar infiltrates versus atelectasis, right greater than left. Electronically authenticated by: JOSIE PARIS Date: 08/31/2023 12:07
--- NOTE | 2023-08-31 09:41 | XR_ITS ---
The [address] [address] Patient Name: SANCHEZ SAMSON MRN: [id number] date: 1945 Sex: F Assigned Patient Location: ICU Current Patient Location: ICU Accession/Order Number: [id number] Exam Date: 08/31/2023 09:30 Report Date: 08/31/2023 10:13 At the request of: URIAH OCAMPO Procedure: XR acute abdomen series EXAM: XR acute abdomen series HISTORY: Vomiting, constipation, abd pain COMPARISON: Chest study dated 08/31/2023 performed at this morning, CT abdomen and CT pelvis studies dated 10/13/2018 TECHNIQUE: AP view of the chest was obtained. Supine and upright views of the abdomen were obtained. Study was performed with portable technique at 9:00 AM. FINDINGS: Heart is mildly enlarged. Moderate to marked increased interstitial airspace density throughout the majority of the right lung field as well as moderate similar changes in the left mid and lower lung field compatible bilateral infiltrates. Likely capsular calcification of the right breast implant. No obvious pneumothorax. Bony structures appear grossly intact. No obvious bowel obstruction. Mild increased fecal load in the colon on the right which is nonspecific, correlate for mild degree of constipation. No significantly increased fecal load in the colon. Similar power pack on the left with leads directed superiorly. Bilateral iliac artery stent graft. Mild degenerative changes in the lumbar spine with mild convexity to the left. Ljwl-dv-ggpwzlzu degenerative changes about the hip joints. XR/XR acute abdomen series IMPRESSION: Bilateral infiltrative changes greater on the right which appears similar to the prior study. Correlate for mild degree of constipation. Electronically authenticated by: TRESA GUILLAUME Date: 08/31/2023 10:13
--- NOTE | 2023-08-31 10:06 | CT_ITS ---
[address] [address] Patient Name: SANCHEZ SAMSON MRN: [id number] date: 1945 Sex: F Assigned Patient Location: ICU Current Patient Location: ICU Accession/Order Number: [id number] Exam Date: 08/31/2023 10:35 Report Date: 08/31/2023 11:48 At the request of: SHAIKH VINNIE Procedure: CT chest wo con EXAMINATION: CT chest wo con HISTORY: SOB COMPARISON: CT chest 06/30/2023 TECHNIQUE: Multi-planar CT images were obtained without and/or with IV contrast as indicated by examination type. Axial, Coronal, and Sagittal images. Dose reduction techniques were achieved by using automated exposure control and/or adjustment of mA and/or kV according to patient size and/or use of iterative reconstruction technique. FINDINGS: LUNGS: Stable areas of infiltrate versus consolidation within the right upper lobe and new moderate infiltrates within right lower lobe and left lower lobe. Marked emphysematous changes. PLEURA: Bilateral pleural effusions, 3.1 cm in thickness on right, 0.4 cm on left. Suspect small loculated effusion lateral to right upper lobe. VASCULATURE: No abnormality. LEXIE: No mass or adenopathy. MEDIASTINUM: No mass or adenopathy. CARDIAC: Atherosclerotic coronary artery disease. No pericardial effusion. AORTA: No aneurysm or dissection. CHEST WALL: Ruptured right breast implant. No mass or axillary adenopathy. BONES: No bone lesion or fracture. LIMITED ABDOMEN: No suspicious findings Limited images of the upper abdomen. OTHER: Neurostimulator electrodes within thoracic central canal positioned posterior to T9. CT/CT chest wo con IMPRESSION: 1. Large right, small left pleural effusion, stable. 2. Moderate-marked right pulmonary infiltrates versus atelectasis; increased. 3. Moderate left basilar infiltrates, new. 4. Chronic marked emphysematous changes. Electronically authenticated by: JOSIE PARIS Date: 08/31/2023 11:48
[2023-08-31] MEDS: BUDESONIDE 0.5 MG/2 ML AMPULE NEB IH ×2 (10:23→23:17)
[2023-08-31] MEDS: DOCUSATE SODIUM 100 MG CAPSULE PO ×2 (10:26→21:18)
[2023-08-31] MEDS: LORAZEPAM 2 MG/ML VIAL 0.5 MG IV (10:26)
[2023-08-31] MEDS: APIXABAN 5 MG TABLET 2.5 MG PO ×2 (10:26→21:17)
[2023-08-31] MEDS: DULOXETINE HCL 60 MG CAPSULE.DR PO (10:26)
[2023-08-31] MEDS: METOPROLOL SUCCINATE 25 MG TAB.ER.24H PO (10:26)
[2023-08-31] MEDS: SPIRONOLACTONE 25 MG TABLET PO (10:26)
[2023-08-31 10:48] LABS: Lactate/Lactic Acid 1.8 mmol/L (0.4-2.0)
--- NOTE | 2023-08-31 10:59 | US_ITS ---
The [place] [id number] Patient Name: SANCHEZ SAMSON MRN: [id number] date: 1945 Sex: F Assigned Patient Location: ICU Current Patient Location: ICU Accession/Order Number: [id number] Exam Date: 08/31/2023 11:00 Report Date: 08/31/2023 11:53 At the request of: URIAH OCAMPO Procedure: US venous doppler LE RT EXAMINATION: US venous doppler LE RT HISTORY: Redness, swelling, tender COMPARISON: No relevant comparison available. FINDINGS: REGION: Right lower extremity THROMBI: None. COMPRESSIBILITY: Normal compressibility. FLOW: Normal waveform and antegrade flow between 5 and 20 cm/s. OTHER: None. US/US venous doppler LE RT IMPRESSION: 1. No deep vein thrombus within the right lower extremity. Electronically authenticated by: JOSIE PARIS Date: 08/31/2023 11:53
--- NOTE | 2023-08-31 10:59 | CM.NOTE ---
Rounds made with Dr. Spence, discussed with pt and daughter regarding further testing and plan of care. Pt R foot cold to touch, awaiting CT results for possible vascular consult. RN at bedside to Doppler pulse.
[2023-08-31] MEDS: 0.9 % SODIUM CHLORIDE 250 ML 10 ML IV (12:47)
[2023-08-31] MEDS: LINEZOLID IN DEXTROSE 5% 600 MG/300 ML PIGGYBACK 300 MG IV (12:47)
--- NOTE | 2023-08-31 12:48 | PM.PLCN ---
History of Present Illness History of Present Illness Consult date: 08/31/23 Requesting physician: Molly Herman Chief complaint: SOB Narrative: 78yo female, well known to me, history of severe COPD, O2-dependent, chronic loculated right effusion, pneumonia earlier this year presents to [facility] with worsening dyspnea. Signs and symptoms suggestive of infection, infiltrates noted on CXR with leukocytosis, admitted for pneumonia with sepsis. Chest CT done this morning confirms bilateral infiltrates which were resolving on 06/30/2023 compared to 04/22/2023. She states she feels better since admission to the hospital. Review of Systems ROS Status of ROS 10 or more systems reviewed and unremarkable except as noted in history and below (Dyspnea, cough, fever. Abdominal pain. LLE stump pain.) [facility] Medical History (Updated 08/31/23 @ 09:25 by Molly Herman, BEAUTY DIRECTOR) Chronic a-fib ?I48.20 - Chronic atrial fibrillation, unspecified (ICD-10) Hyperglycemia ?R73.9 - Hyperglycemia, unspecified (ICD-10) Community acquired pneumonia ?J18.9 - Pneumonia, unspecified organism (ICD-10) Right lower lobe lung mass ?R91.8 - Other nonspecific abnormal finding of lung field (ICD-10) Acute on chronic diastolic (congestive) heart failure ?I50.33 - Acute on chronic diastolic (congestive) heart failure (ICD-10) HTN (hypertension) ?I10 - Essential (primary) hypertension (ICD-10) Acute and chronic respiratory failure with hypoxia ?J96.21 - Acute and chronic respiratory failure with hypoxia (ICD-10) COPD (chronic obstructive pulmonary disease) ?J44.9 - Chronic obstructive pulmonary disease, unspecified (ICD-10) Right leg injury ?S89.91XA - Unspecified injury of right lower leg, initial encounter (ICD-10) Pneumonia ?J18.9 - Pneumonia, unspecified organism (ICD-10) Chronic respiratory failure with hypoxia ?J96.11 - Chronic respiratory failure with hypoxia (ICD-10) Alcohol abuse ?F10.10 - Alcohol abuse, uncomplicated (ICD-10) COVID-19 ?U07.1 - COVID-19 (ICD-10) HLD (hyperlipidemia) ?E78.5 - Hyperlipidemia, unspecified (ICD-10) PAD (peripheral artery disease) ?I73.9 - Peripheral vascular disease, unspecified (ICD-10) Oxygen dependent ?Z99.81 - Dependence on supplemental oxygen (ICD-10) Surgical History (Updated 04/22/23 @ 14:44 by Vanita Maloney) History of carpal tunnel surgery ?Z98.890 - Other specified postprocedural states (ICD-10) H/O: hysterectomy ?Z90.710 - Acquired absence of both cervix and uterus (ICD-10) Amputated left leg ?S88.912A - Complete traumatic amputation of left lower leg, level unspecified, initial encounter (ICD-10) Social History Within the past year, how often did you have a drink containing alcohol: 4 or more times a week Within the past year, how many standard drinks containing alcohol did you have on a typical day: 3 or 4 Within the past year, how often did you have six or more drinks on one occasion: weekly Total score: 5 Score interpretation: A score of 3 or more indicates drinking is likely to affect patient's safety. Smoking status: Former smoker Highest level of school completed/degree received: high school graduate Do you think of yourself as: straight/heterosexual Gender Identity: female Meds Home Medications and Allergies Home Medications ?Medication ?Instructions ?Recorded ?Confirmed ?Type docusate sodium 100 mg capsule 100 mg PO BID 03/27/23 08/31/23 History duloxetine 60 mg capsule,delayed 60 mg PO DAILY 03/27/23 08/31/23 History release gabapentin 800 mg tablet 800 mg PO TID 03/27/23 08/31/23 History nitroglycerin 0.4 mg sublingual 0.4 mg sublingual Q5M PRN chest 03/27/23 08/31/23 History tablet pain pantoprazole 40 mg tablet,delayed 40 mg PO DAILY 03/27/23 08/31/23 History release tizanidine 4 mg tablet 4 mg PO TID PRN muscle spasticity 03/27/23 08/31/23 History apixaban 2.5 mg tablet (Eliquis) 2.5 mg PO BID 04/22/23 08/31/23 History atorvastatin 40 mg tablet 40 mg PO QAM 06/01/23 08/31/23 History spironolactone 25 mg tablet 25 mg PO DAILY 06/01/23 08/31/23 History albuterol sulfate 90 mcg/actuation 2 puff inhalation Q4H PRN 08/31/23 08/31/23 History aerosol inhaler shortness of breath or wheezing amiodarone 200 mg tablet 200 mg PO DAILY 08/31/23 08/31/23 History fluticasone fur. 200 mcg-umeclid 1 inh inhalation Q24H 08/31/23 08/31/23 History 62.5 mcg-vilant 25 mcg inhalat.powder (Trelegy Ellipta) furosemide 20 mg tablet 20 mg PO DAILY PRN edema 08/31/23 08/31/23 History metoprolol succinate 25 mg 25 mg PO DAILY 08/31/23 08/31/23 History tablet,extended release 24 hr nystatin 100,000 unit/gram topical 1 applic topical BID 08/31/23 08/31/23 History powder ondansetron HCl 4 mg tablet 4 mg PO TID PRN nausea and vomiting 08/31/23 08/31/23 History Allergies Allergy/AdvReac Type Severity Reaction Status Date / Time vancomycin Allergy Intermediate Rash Verified 08/31/23 05:55 Exam Constitutional Vital Signs, click to edit/add: Last Vital Signs Temp 99.0 F 08/31/23 08:41 Pulse 87 08/31/23 10:25 Resp 18 08/31/23 10:25 BP 99/50 08/31/23 09:30 Pulse Ox 92 L 08/31/23 10:25 O2 Del Method Vapotherm 08/31/23 10:25 O2 Flow Rate 40 08/31/23 10:25 FiO2 60 08/31/23 08:41 Other: Laying in bed. Chronically ill. HENMT Other: No candidiasis. Wearing nasal cannula. Respiratory Other: Diminished breath sounds. Bibasilar crackles. Cardio Other: Irregularly irregular. GI Other: Positive bowel sounds Extremity Other: Left AKA Neuro Other: Appears tired. Psych Attitude: calm Results Laboratory Findings ABG, PT/INR, D-dimer: ABG ABG pH 7.365 (7.350-7.450) 08/31/23 07:40 ABG pCO2 40.4 mmHg (35.0-45.0) 08/31/23 07:40 ABG pO2 91.6 mmHg (80.0-100.0) 08/31/23 07:40 ABG O2 Saturation 97.1 % 08/31/23 07:40 Abnormal lab findings: Abnormal Labs 08/31/23 08/31/23 08/31/23 06:07 06:50 07:40 WBC 18.3 H Hgb 11.8 L RDW 16.6 H Plt Count 479 H Neut % (Auto) 90.7 H Lymph % (Auto) 5.0 L Eos % (Auto) 0.1 L Neut # (Auto) 16.5 H Lymph # (Auto) 0.9 L Abs Immat Gran (auto) 0.06 H ABG Base Excess -2.3 L VBG pH 7.319 L Sodium 133 L Chloride 97 L Creatinine 1.10 H Est GFR ( Amer) 58 L Est GFR (Non-Af Amer) 48 L Glucose 112 H Lactate 2.9 H* NT-Pro-B Natriuret Pep 4949.0 H* Diagnostic Findings Chest x-ray: report reviewed and image reviewed CT scan - chest: report reviewed and image reviewed U/S of Legs: report reviewed and image reviewed Assessment and Plan Assessment and Plan (1) Pneumonia: Assessment and Plan: 1. Community-acquired pneumonia. Bibasilar infiltrates confirmed on chest CT today (08/31/2023), new from 06/30/2023. Patient has signs and symptoms of sepsis. Continue antibiotics, monitor for resolution. 2. AECOPD. Secondary to #1. Centrilobular emphysema, O-2 Dependent. Continue bronchodilators, steroids. 3. Sepsis. Secondary to #1. Supportive care. 4. Ixilr-ln-awdkcmf hypoxic respiratory failure. Baseline O2 ~2L/min. 5. Bilateral pleural effusions. Chronic, left is loculated. Appears stable from 06/30/2023 and 04/22/2023 - no plans for thoracentesis at this time. This has been followed outpatient. 6. History of tobacco abuse. Quit 2009. Qualifiers: Laterality: unspecified laterality Lung location: unspecified part of lung Pneumonia type: due to unspecified organism Qualified Code(s): J18.9 - Pneumonia, unspecified organism
[2023-08-31] MEDS: GABAPENTIN 400 MG CAPSULE 800 MG PO ×2 (13:51→21:17)
[2023-08-31] MEDS: POLYETHYLENE GLYCOL 3350 17 GM POWDER PACKET PO (13:52)
[2023-08-31] MEDS: METHYLPREDNISOLONE SOD SUCC PF 40 MG/ML VIAL IVP ×2 (13:53→21:18)
[2023-08-31] MEDS: 0.9 % SODIUM CHLORIDE 1,000 ML 50 ML IV ×2 (13:54→18:03)
--- NOTE | 2023-08-31 14:33 | DIETREC ---
Recommend 237 mL Ensure Clear BID.
--- NOTE | 2023-08-31 15:40 | CM.NOTE ---
Attempted to see pt for IMM and discharge planning. Nurse requesting to allow pt to sleep.
[2023-08-31] MEDS: PIPERACILLIN SODIUM/TAZOBACTAM 3.375 GM in 0.9 % SODIUM CHLORIDE 50 ML IV (17:35)
[2023-08-31] MEDS: AMIODARONE HCL 200 MG TABLET PO (21:17)
[2023-08-31] MEDS: ATORVASTATIN CALCIUM 40 MG TABLET PO (21:18)
[2023-09-01] VITALS (21 sets, daily range): BP systolic 95–138; BP diastolic 48–82; PULSE 80–109; TEMP 36.5–36.8; O2SAT 91–98
[2023-09-01] MEDS: PIPERACILLIN SODIUM/TAZOBACTAM 3.375 GM in 0.9 % SODIUM CHLORIDE 50 ML IV ×3 (00:24→16:19)
[2023-09-01] MEDS: LINEZOLID IN DEXTROSE 5% 600 MG/300 ML PIGGYBACK 300 MG IV ×2 (01:48→12:25)
[2023-09-01 05:13] LABS: Basophils Percent Auto 0.1 % (0.2-2.0); Hematocrit 32.6 % (36.0-48.0); Immature Granulocytes Abs Auto 0.06 10^3/uL (0.00-0.03); Immature Granulocytes Pct Auto 0.5 % (0.0-0.5); Lymphocytes Absolute Auto 0.6 10^3/uL (1.2-3.8); Lymphocytes Percent Auto 4.6 % (20.5-60.0); Mean Corpuscular HGB Conc 30.7 g/dL (29.9-35.2); Mean Corpuscular Hemoglobin 27.6 pg (26.7-34.0); Mean Corpuscular Volume 90.1 fL (81.0-99.0); Mean Platelet Volume 10.5 fL (9.5-13.5); Monocytes Absolute Auto 0.4 10^3/uL (0.3-0.8); Monocytes Percent Auto 2.6 % (1.7-12.0); Neutrophils Absolute Auto 12.2 10^3/uL (1.4-6.5); Neutrophils Percent Auto 92.2 % (43.0-75.0); Platelet Count 337 10^3/uL (150-450); Red Blood Count 3.62 10^6/uL (4.20-5.40); Red Cell Distribution Width 16.7 % (11.0-15.0); White Blood Count 13.3 10^3/uL (4.0-11.0)
[2023-09-01] MEDS: GABAPENTIN 400 MG CAPSULE 800 MG PO ×3 (05:31→21:01)
[2023-09-01] MEDS: METHYLPREDNISOLONE SOD SUCC PF 40 MG/ML VIAL IVP ×2 (05:31→17:04)
[2023-09-01 05:45] LABS: Alanine Aminotransferase 21 U/L (14-59); Albumin Globulin Ratio 0.8; Albumin Level 2.7 g/dL (3.4-5.0); Alkaline Phosphatase 73 U/L (46-116); Anion Gap 14.4; Aspartate Amino Transferase 17 U/L (15-37); BUN Creatinine Ratio 16.7; Bilirubin Total 0.8 mg/dL (0.2-1.0); Calcium 8.3 mg/dL (8.5-10.1); Carbon Dioxide 21.7 mmol/L (21.0-32.0); Chloride 102 mmol/L (98-107); Estimated GFR (African America >60 (>=60); Estimated GFR (Non-African Ame >60 (>=60); Globulin 3.2 g/dL; Glucose 183 mg/dL (74-106); Potassium 4.1 mmol/L (3.5-5.1); Sodium 134 mmol/L (136-145); Total Protein 5.9 g/dL (6.4-8.2)
--- NOTE | 2023-09-01 07:31 | PM.PLPN ---
Progress Note: A&P Assessment and Plan (1) Pneumonia: Assessment and Plan: 1. Community-acquired pneumonia. Clinically appears to be improving.? Can continue with current antibiotics. 2. AECOPD. Secondary to #1. Centrilobular emphysema, O2-Dependent. Continue current therapy. 3. Sepsis. Secondary to #1. Clinically improving.? WBC down.? Afebrile. 4. Edmnn-xa-nsmtakv hypoxic respiratory failure. Baseline O2 ~2L/min. 5. Bilateral pleural effusions. Chronic, left is loculated. Appears stable from 06/30/2023 and 04/22/2023.? Will continue to monitor outpatient. 6. History of tobacco abuse. Quit 2009. 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 More talkative, smiling, active. Daughter present in room and voiced agreement. Discussed case with both of them - reviewed that chronic loculated right effusion is no worse and that CT is consistent with bilateral lower lobe pneumonia. Patient voices no new concerns today. Exam Constitutional Vital Signs, click to edit/add: Last Vital Signs Temp 98 F 09/01/23 02:24 Pulse 92 H 09/01/23 06:02 Resp 18 09/01/23 04:17 BP 95/48 L 09/01/23 02:24 Pulse Ox 97 09/01/23 06:02 O2 Del Method Vapotherm 09/01/23 06:00 O2 Flow Rate 40 09/01/23 06:00 FiO2 30 09/01/23 06:00 Other: Laying in bed. Chronically ill appearing. More alert, active this morning. HENMT Other: No candidiasis. Wearing nasal cannula. Mild postnasal drip (dark red). Respiratory Other: Improved aeration from yesterday. Less bibasilar crackles. Cardio Other: Irregularly irregular. GI Other: Positive bowel sounds Extremity Other: Left AKA. No RLE edema. Neuro Other: No fasciculations or tremors. Psych Other: More talkative, animated this morning.
--- NOTE | 2023-09-01 08:24 | CM.NOTE ---
Important message from [employer] discussed with pt, pt verbalizes understanding and signs paper. Original given to pt and copy placed in pt's chart.
[2023-09-01] MEDS: DOCUSATE SODIUM 100 MG CAPSULE PO ×2 (08:36→21:01)
[2023-09-01] MEDS: APIXABAN 5 MG TABLET 2.5 MG PO ×2 (08:36→21:01)
[2023-09-01] MEDS: METOPROLOL SUCCINATE 25 MG TAB.ER.24H PO (08:36)
[2023-09-01] MEDS: DULOXETINE HCL 60 MG CAPSULE.DR PO (08:36)
[2023-09-01] MEDS: POLYETHYLENE GLYCOL 3350 17 GM POWDER PACKET PO (08:37)
--- NOTE | 2023-09-01 10:14 | SWNOTE1 ---
SW spoke to case management and pt does wear 3 liters at home. Pt also would like [facility] as she has had them in the past. Once PT/OT eval pt, MARIOLA will send referral.
[2023-09-01] MEDS: 0.9 % SODIUM CHLORIDE 1,000 ML 50 ML IV (10:23)
[2023-09-01] MEDS: OMEPRAZOLE 40 MG CAPSULE.DR PO (10:23)
--- NOTE | 2023-09-01 10:38 | P.IMPN_ITS ---
Progress Note: A&P Assessment and Plan (1) Pneumonia: Assessment and Plan: Treating for hospital acquired PNA for recent hospital hospital admission for PNA and abx use. On IV zyvox and zosyn. C/w same. Improving clinically. Qualifiers: Laterality: unspecified laterality Lung location: unspecified part of lung Pneumonia type: due to unspecified organism Qualified Code(s): J18.9 - Pneumonia, unspecified organism (2) Sepsis: Assessment and Plan: Resolved. C/w IV abx and IVF. Stable hemodynamics. Qualifiers: Acute respiratory failure type: with hypoxia Sepsis acute organ dysfunction status: with acute organ dysfunction Sepsis type: sepsis due to unspecified organism Severe sepsis acute organ dysfunction type: acute respiratory failure Severe sepsis shock status: without septic shock Qualified Code(s): A41.9 - Sepsis, unspecified organism; R65.20 - Severe sepsis without septic shock; J96.01 - Acute respiratory failure with hypoxia (3) Acute and chronic respiratory failure with hypoxia: Assessment and Plan: Improving. Now on 21% FiO2 Wean off O2 as tolerated c/w IV abx (4) Acute infective exacerbation of chronic obstructive airway disease: Assessment and Plan: No active bronchospasm or wheezing on exam. Derease solumedrol to q12. C/w duonebs (5) Chronic a-fib: Assessment and Plan: C/w amiodarone and eliquis (6) Congestive heart failure: Assessment and Plan: Mild dehydration on exam. On IVF. Monitor. 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 (8) HTN (hypertension): Assessment and Plan: BP is soft and slightly low. C/w amiodarone. C/w IVF Qualifiers: Hypertension type: primary hypertension Qualified Code(s): I10 - Essential (primary) hypertension (9) HLD (hyperlipidemia): Assessment and Plan: c/w statin Qualifiers: Hyperlipidemia type: mixed hyperlipidemia Qualified Code(s): E78.2 - Mixed hyperlipidemia (10) PAD (peripheral artery disease): Assessment and Plan: Vascular surgery on consult. CT abd with aortic run off - has moderate atheroscleritic disease. No acute limb ischemia. Plan Stable for transfer to med surg C/w IV abx, follow up cx, wean off o2 as tolerated. Internal Medicine - PN: Subj Subjective Interval history: Seem and examined. No overnight events. Doing better today. She is on 21% FiO2 now. Can be transitioned to nasal cannula. Reports productive sputum and cough. Exam Constitutional Vital Signs, click to edit/add: Last Vital Signs Temp 98 F 09/01/23 02:24 Pulse 86 09/01/23 10:00 Resp 18 09/01/23 04:17 BP 95/48 L 09/01/23 02:24 Pulse Ox 97 09/01/23 06:02 O2 Del Method Vapotherm 09/01/23 06:00 O2 Flow Rate 40 09/01/23 06:00 FiO2 30 09/01/23 06:00 Documenting provider has reviewed patient's vital signs: yes Common normals: no apparent distress and oriented x3 General appearance: ill appearing and frail appearing HENMT Common normals: normocephalic and head/scalp atraumatic Respiratory Common normals: normal respiratory effort and no use of accessory muscles Auscultation: rhonchi Cardio Common normals: no JVD, regular rate, regular rhythm, S1 normal heart sound and S2 normal heart sound Extremity Other: left AKA Right LE - is cold to touch with barely palpable distal pulses. No rest pain Neuro Common normals: oriented x3, moves all extremities and no focal motor deficits Internal Medicine - PN: Obj Da Labs Labs: Laboratory Results - last 24 hr 08/31/23 09/01/23 10:05 04:29 WBC 13.3 H RBC 3.62 L Hgb 10.0 L Hct 32.6 L MCV 90.1 MCH 27.6 MCHC 30.7 RDW 16.7 H Plt Count 337 MPV 10.5 Neut % (Auto) 92.2 H Lymph % (Auto) 4.6 L Meigs % (Auto) 2.6 Eos % (Auto) 0.0 L Baso % (Auto) 0.1 L Neut # (Auto) 12.2 H Lymph # (Auto) 0.6 L Meigs # (Auto) 0.4 Eos # (Auto) 0.0 Baso # (Auto) 0.0 Abs Immat Gran (auto) 0.06 H Imm/Tot Granulo (auto) 0.5 Sodium 134 L Potassium 4.1 Chloride 102 Carbon Dioxide 21.7 Anion Gap 14.4 BUN 12.0 Creatinine 0.72 Est GFR ( Amer) >60 Est GFR (Non-Af Amer) >60 BUN/Creatinine Ratio 16.7 Glucose 183 H Lactate 1.8 Calcium 8.3 L Total Bilirubin 0.8 AST 17 ALT 21 Alkaline Phosphatase 73 NT-Pro-B Natriuret Pep 3679.0 H* Total Protein 5.9 L Albumin 2.7 L Globulin 3.2 Albumin/Globulin Ratio 0.8
--- NOTE | 2023-09-01 10:45 | CM.NOTE ---
Rounds made with Dr. Spence, vascular and Pulmonary consult for further recommendations. No discharge today.
[2023-09-01] MEDS: BUDESONIDE 0.5 MG/2 ML AMPULE NEB IH ×2 (11:06→19:42)
[2023-09-01] MEDS: OXYCODONE HCL 5 MG TABLET 10 MG PO (11:11)
[2023-09-01] MEDS: GUAIFENESIN 600 MG TAB.ER.12H PO ×2 (11:11→21:01)
[2023-09-01] MEDS: 0.9 % SODIUM CHLORIDE 1,000 ML 100 ML IV ×2 (11:27→21:02)
--- NOTE | 2023-09-01 12:16 | SWNOTE1 ---
Referral sent to [facility] . Referral included face sheet, ED note and H&P. OT worked with pt, but no needs identified.
--- NOTE | 2023-09-01 13:09 | SWNOTE1 ---
[facility] is able to accept. SW notified nursing.
[2023-09-01] MEDS: LORAZEPAM 0.5 MG TABLET PO ×2 (15:16→21:00)
[2023-09-01] MEDS: ONDANSETRON PF 4 MG/2 ML VIAL IV (17:05)
[2023-09-01] MEDS: AMIODARONE HCL 200 MG TABLET PO (21:01)
[2023-09-01] MEDS: ATORVASTATIN CALCIUM 40 MG TABLET PO (21:01)
[2023-09-02] VITALS (76 sets, daily range): BP systolic 51–154; BP diastolic 24–98; PULSE 86–160; TEMP 36.3–37.1; O2SAT 46–97
[2023-09-02] MEDS: PIPERACILLIN SODIUM/TAZOBACTAM 3.375 GM in 0.9 % SODIUM CHLORIDE 50 ML IV (00:06)
[2023-09-02] MEDS: LINEZOLID IN DEXTROSE 5% 600 MG/300 ML PIGGYBACK 300 MG IV (00:06)
[2023-09-02] MEDS: ONDANSETRON PF 4 MG/2 ML VIAL IV (02:39)
[2023-09-02] MEDS: SENNOSIDES/DOCUSATE SODIUM 1 TAB TABLET PO (02:48)
[2023-09-02 05:40] LABS: Hematocrit 39.1 % (36.0-48.0); Hemoglobin 11.4 g/dL (12.0-16.0); Mean Corpuscular HGB Conc 29.2 g/dL (29.9-35.2); Mean Corpuscular Hemoglobin 27.3 pg (26.7-34.0); Mean Corpuscular Volume 93.8 fL (81.0-99.0); Mean Platelet Volume 10.4 fL (9.5-13.5); Platelet Count 491 10^3/uL (150-450); Red Blood Count 4.17 10^6/uL (4.20-5.40); Red Cell Distribution Width 16.7 % (11.0-15.0); White Blood Count 23.2 10^3/uL (4.0-11.0)
[2023-09-02] MEDS: OMEPRAZOLE 40 MG CAPSULE.DR PO (05:56)
[2023-09-02] MEDS: METHYLPREDNISOLONE SOD SUCC PF 40 MG/ML VIAL IVP (05:56)
[2023-09-02] MEDS: GABAPENTIN 400 MG CAPSULE 800 MG PO (05:56)
[2023-09-02] MEDS: 0.9 % SODIUM CHLORIDE 1,000 ML 100 ML IV (05:56)
--- NOTE | 2023-09-02 06:00 | XR_ITS ---
The [address] [address] Patient Name: SANCHEZ SAMSON MRN: [id number] date: 1945 Sex: F Assigned Patient Location: MS Current Patient Location: ICU Accession/Order Number: [id number] Exam Date: 09/02/2023 05:39 Report Date: 09/02/2023 07:28 At the request of: SHAIKH VINNIE Procedure: XR chest 1V EXAMINATION: XR chest 1V HISTORY: SOB COMPARISON: XR chest 08/31/2023 FINDINGS: LUNGS: Moderate patchy and strandy opacities predominantly involving right upper lobe and left lung base. Obscuration of left hemidiaphragm. VASCULATURE: No increased pulmonary vasculature. PLEURA: No pneumothorax. CARDIAC: No cardiomegaly or cardiac silhouette abnormality. MEDIASTINUM: No visible mass or adenopathy. BONES: No fracture or visible bone lesion. OTHER: Negative. XR/XR chest 1V IMPRESSION: 1. Moderate bilateral pulmonary infiltrates and likely persistent bilateral pleural effusions, but overall significantly improved. Electronically authenticated by: JOSIE PARIS Date: 09/02/2023 07:28
[2023-09-02 06:04] LABS: Alanine Aminotransferase 358 U/L (14-59); Albumin Globulin Ratio 0.9; Albumin Level 3.2 g/dL (3.4-5.0); Alkaline Phosphatase 84 U/L (46-116); Anion Gap 19.3; Aspartate Amino Transferase 418 U/L (15-37); BUN Creatinine Ratio 12.8; Calcium 8.1 mg/dL (8.5-10.1); Carbon Dioxide 19.3 mmol/L (21.0-32.0); Chloride 95 mmol/L (98-107); Estimated GFR (African America 46 (>=60); Estimated GFR (Non-African Ame 38 (>=60); Globulin 3.6 g/dL; Glucose 152 mg/dL (74-106); Potassium 4.6 mmol/L (3.5-5.1); Sodium 129 mmol/L (136-145); Total Protein 6.8 g/dL (6.4-8.2)
[2023-09-02 06:09] LABS: Segmented Neut Absolute Manual 21.57 10^3/uL (1.4-6.5)
[2023-09-02 06:10] LABS: Atypical Lymphocytes Abs Man 0.69; Burr Cells 3+; Lymphocytes Absolute Manual 0.23 10^3/uL (1.20-3.80); Monocytes Absolute Manual 0.69 10^3/uL (0.30-0.80)
[2023-09-02 06:30] LABS: ABG PCO2 33.3 mmHg (35.0-45.0); Allen Test POSITIVE (POSITIVE); Base Excess ABG -16.8 mmol/L (-2.0-2.0); HCO3 ABG 11.9 mmol/L (22.0-26.0); Liters per Minute 3; O2 Mode NASAL CANNULA; Oxygen Saturation ABG 90.5 %
[2023-09-02 06:31] LABS: Puncture Site R RADIAL
[2023-09-02 06:50] LABS: Ammonia 33 umol/L (11-32)
--- NOTE | 2023-09-02 06:55 | ECG_ITS ---
The [facility] Test Date: 2023-09-02 Pat Name: SANCHEZ SAMSON Department: Room: [facility] Gender: Female Net W[employer] Developer: : 1945 Requested By: Tahir Royal Order Number: [id number] Reading MD: JANET NARAYANAN Measurements Intervals [place] Rate: 87 P: 90 FL: 218 QRS: 267 QRSD: 176 T: 90 QT: 444 QTc: 489 Interpretive Statements 1100 Sinus rhythm 1474 with frequent supraventricular premature complexes 2231 First degree AV block 2450 Right bundle branch block 7100 Abnormal right axis deviation 9150 abnormal ECG Compared to ECG 08/31/2023 05:52:31 First degree AV block now present Right bundle-branch block now present Incomplete right bundle-branch block no longer present ST (T wave) deviation no longer present Electronically Signed On 09-03-2023 7:05:06 EDT by JANET NARAYANAN
[2023-09-02] MEDS: 0.9 % SODIUM CHLORIDE 1,000 ML 1000 ML IV (07:23)
--- NOTE | 2023-09-02 07:32 | PM.PLPN ---
Progress Note: A&P Assessment and Plan (1) Pneumonia: Assessment and Plan: 1. NSTEMI. Acute this AM. Unable to confirm with troponins. Overall clinical status is deteriorating rapidly. Looking into comfort - DNR-CCA no intubation at this time. 2. Community-acquired pneumonia. CXR improving - this argues against pneumonia as the main cause of her dyspnea. 3. AECOPD. Secondary to #1. Centrilobular emphysema, O2-Dependent. 4. Sepsis. Secondary to #1. WBC increased - suspect steroids +/- acute phase reactant opposed to actual infection. 5. Mparo-xh-wejtihk hypoxic respiratory failure. Worsening. Now on Vapotherm FiO2 100%. 6. Bilateral pleural effusions. Chronic, left is loculated. Appears stable from 06/30/2023 and 04/22/2023.? 7. History of tobacco abuse. Quit 2009. Qualifiers: Laterality: unspecified laterality Lung location: unspecified part of lung Pneumonia type: due to unspecified organism Qualified Code(s): J18.9 - Pneumonia, unspecified organism Plan Patient is moribund. Morphine helped alleviate pain and dyspnea. Critical care time 45 minutes. Subjective Subjective Interval history: Initially saw patient @ 06:45. Patient was doing well yesterday and last evening. This morning she had an emesis and has not felt well since. She is more short of breath and has had fluctuating blood pressures. Labs drawn have been markedly worsened - LFT have increased significantly. ABG drawn shows an acute metabolic acidosis. Patient appeared dusky earlier, but SpO2 was in the 90's. She was placed back on Vapotherm for comfort which improved her appearance and relieved mild dyspnea. I reassessed her at 07:30. Patient is becoming mottled, more distressed, confused and short of breath. I personally reviewed the CXR and it appeared improved to me - this was confirmed with radiologist read. STAT EKG obtained and there is a marked change from prior - now wide complex QRS, prolonged QTC 489msec, and ST segment depression in II, III, avF and V4. Phlebotomy was unable to draw STAT cardiac enzymes. PICC was ordered, but timing is unknown. I assessed patient to place a central line, but she is very uncomfortable and rolling around in the bed. I spoke with the daughter; I have known her and the patient a long time. I explained to them that it appears that some catastrophic event has happened (NSTEMI). If this were cardiac, she would need transferred and I am not sure she would be able to tolerate the transfer. The patient remains uncomfortable. After discussion, the daughter decided that comfort measures would be best. She is becoming confused and does not answer some questions by this time. I asked the patient if she wanted to be comfortable which she replied yes . I changed patient to a DNR-CCA no intubation status and am prescribing morphine to alleviate dyspnea and pain. Cancelled PICC line. Dr. Spence was updated on the patient's condition. Exam Constitutional Vital Signs, click to edit/add: Last Vital Signs Temp 97.7 F 09/02/23 06:22 Pulse 109 H 09/02/23 06:22 Resp 16 09/02/23 06:22 BP 134/81 09/02/23 06:22 Pulse Ox 97 09/02/23 06:22 O2 Del Method Nasal Cannula 09/02/23 06:22 O2 Flow Rate 3 09/02/23 06:22 FiO2 30 09/01/23 06:00 Other: Patient does not appear well this morning - appears acutely ill - marked change from yesterday. HENMT Other: Wearing Vapotherm nasal cannula. Respiratory Other: Diminished breath sounds. Respirations appear mildly labored with purse lip breathing. Cardio Other: Irregularly irregular. GI Other: Positive bowel sounds Extremity Other: Left AKA. RLE distal appears more red/purple, especially 2-4 toes. Cold to touch. Could not palpate dorsalis pedis pulse at this time. Neuro Other: No fasciculations or tremors. Psych Other: More slow, measured speech. Result Comments Results Details: Patient Name: SANCHEZ SAMSON MRN: [id number] date: 1945 Sex: F Assigned Patient Location: [place] Current Patient Location: ICU Accession/Order Number: [id number] Exam Date: 09/02/2023 05:39 Report Date: 09/02/2023 07:28 At the request of: SHAIKH VINNIE Procedure: XR chest 1V EXAMINATION: XR chest 1V HISTORY: SOB COMPARISON: XR chest 08/31/2023 FINDINGS: LUNGS: Moderate patchy and strandy opacities predominantly involving right upper lobe and left lung base. Obscuration of left hemidiaphragm. VASCULATURE: No increased pulmonary vasculature. PLEURA: No pneumothorax. CARDIAC: No cardiomegaly or cardiac silhouette abnormality. MEDIASTINUM: No visible mass or adenopathy. BONES: No fracture or visible bone lesion. OTHER: Negative. XR/XR chest 1V IMPRESSION: 1. Moderate bilateral pulmonary infiltrates and likely persistent bilateral pleural effusions, but overall significantly improved. Electronically authenticated by: JOSIE PARIS Date: 09/02/2023 07:28
[2023-09-02] MEDS: MORPHINE SULFATE 2 MG/ML SYRINGE 1 MG IV ×4 (08:00→17:22)
--- NOTE | 2023-09-02 10:00 | SWNOTE1 ---
Nursing requested SW come speak with family in regards to Hospice. Pt is now a DNRCC. SW spoke with pt's daughter about hospice and that they can come here and do an assessment and give there recommendations. SW advised that this does not mean they have to sign on to Hospice, but they will assess and let family know how they can help. SW provided pt's daughter with list of hospice agencies. Family is going to discuss. SW did let daughter know that fpc at a facility is out of pocket. Daughter did ask how long pt can stay here, SW advised it will depend on hospice and if they sign on, usually have to have plan within 2 days. If not signing on to hospice it will depend if medically we are able to do any more care for pt or if she is medically stable for dc. Daughter voiced understanding.
--- NOTE | 2023-09-02 10:12 | PT.DAILY ---
Physical Therapy Daily Note PT Daily Note/Assess Start: 09/02/23 10:10 Freq: Status: Active Protocol: Document 09/02/23 10:10 KENN (Rec: 09/02/23 10:12 KENN [id number]) Visit Not Completed Visit Not Completed Visit Not Completed Due to: Medical instability,Nursing request to hold Other Reason Visit Not Completed Hold per nursing, reports pt is actively dying. Had turn of events last night with rapid decline. Plan to DC from PT Physical Therapy Daily Note/Assessment Time In/Time Out Time In 09:45 Time Out 09:45 GG. Functional Abilities and Goals-Complete for Swing Bed Patients Only [id number]. Self-Care [id number]. Mobility
--- NOTE | 2023-09-02 11:43 | CM.NOTE ---
Rounds made with Dr. Spence. Dr. Spence discussed with family change in Sharee's status. Family with multiple questions--all answered by Dr. Spence. Dr. Spence to return to room and speak with family after they discuss options.
--- NOTE | 2023-09-02 11:45 | SWNOTE1 ---
SW spoke to daughter Millie and pt's son in room as well. They would like to go with [facility]. SW and family again spoke about discharge planning. Daughter had mentioned moving her to med/surge and getting her comfortable and again asked how long pt can be in hospital. MARIOLA advised family that if they sign on with hospice, usually have 2 days to figure out the plan. If no hospice it will depend on pt's medical stability.
--- NOTE | 2023-09-02 12:07 | PM.IMPN1 ---
Progress Note: A&P Assessment and Plan (1) Pneumonia: Assessment and Plan: Was clinically improving. However she had increased work of breathing, shortness of breath along with worsening white count. She was already on broad-spectrum antibiotics. Extensive discuussion with patient's family and after careful deliberation, decision is to withdraw care and consult hospice. Continue with antibiotics for now. Qualifiers: Laterality: unspecified laterality Lung location: unspecified part of lung Pneumonia type: due to unspecified organism Qualified Code(s): J18.9 - Pneumonia, unspecified organism (2) ACS (acute coronary syndrome): Assessment and Plan: Suspect acute coronary syndrome for her acute change in mental status. ST depressions in inferior leads on EKG. Unable to obtain troponin/cardiac enzymes and plan was to get a PICC line but decision was made to forego invasive/aggressive treatment and let nature take its course. Hospice consulted for comfort care measures (3) Metabolic acidosis: Assessment and Plan: metabolic acidosis likely secondary to acute coronary syndrome.Patient has respiratory distress and increased work of breathing. Discuss code status/mechanical ventilation and he decided to withdraw care and pursue comfort care measures only. Hospice was consulted. (4) Metabolic encephalopathy: Assessment and Plan: Multifactorial and likely secondary to metabolic acidosis/acute coronary syndrome/pneumonia. (5) Sepsis: Assessment and Plan: Patient was improving clinically until this morning. Poor prognosis and at high risk of mortality. Qualifiers: Acute respiratory failure type: with hypoxia Sepsis acute organ dysfunction status: with acute organ dysfunction Sepsis type: sepsis due to unspecified organism Severe sepsis acute organ dysfunction type: acute respiratory failure Severe sepsis shock status: without septic shock Qualified Code(s): A41.9 - Sepsis, unspecified organism; R65.20 - Severe sepsis without septic shock; J96.01 - Acute respiratory failure with hypoxia (6) Acute and chronic respiratory failure with hypoxia: Assessment and Plan: Continue with oxygen for comfort care measures. (7) Acute infective exacerbation of chronic obstructive airway disease: Assessment and Plan: Continue inhaled bronchodilators and systemic steroids for now. Continue with comfort care measures (8) Chronic a-fib: Assessment and Plan: In normal sinus rhythm. Continue with Eliquis for anticoagulation. (9) HTN (hypertension): Assessment and Plan: Blood pressure is stable. Continue with home meds Qualifiers: Hypertension type: primary hypertension Qualified Code(s): I10 - Essential (primary) hypertension (10) Chronic respiratory failure with hypoxia: Assessment and Plan: Continue patient on oxygen for comfort care measures (11) PAD (peripheral artery disease): Assessment and Plan: Stable. Monitor Plan Hospice consulted. Based on their initial consultation and patient's clinical course-discharge home with hospice versus inpatient hospice Internal Medicine - PN: Subj Subjective Interval history: Patient was improving clinically ill this morning when she suddenly became very confused/cyanotic. Her skin also became mottled/cyanotic. 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 Patient said she felt that she was going to . Patient was trasnferred to ICU due to change in clinical status and work up ordered including ammonia levels, lactic acidosis, EKG, ABG, CT abd/pelvis. Nurses were unable to obtain blood work but she was seen by Dr Royal earlier today and after detailed discussed with patient's family, her code status was changed to DNR CCA. Later on, after discussed care plans with family, she was changed to DNR CC, and hospice was consulted. Exam Constitutional Vital Signs, click to edit/add: Last Vital Signs Temp 98.8 F 09/02/23 08:00 Pulse 86 09/02/23 08:00 Resp 22 H 09/02/23 08:00 BP 141/98 H 09/02/23 07:31 Pulse Ox 49 L 09/02/23 08:00 O2 Del Method Vapotherm 09/02/23 08:00 O2 Flow Rate 40 09/02/23 08:00 FiO2 100 09/02/23 08:00 Exam limitations: altered mental status General appearance: in distress, lethargic, ill appearing and frail appearing Respiratory Effort & inspection: abnormal respiratory pattern, respiratory distress, decreased respiratory effort, pursed lip breathing and uses accessory muscles Auscultation: rhonchi and wheezes Cardio Common normals: regular rate, regular rhythm, S1 normal heart sound and S2 normal heart sound GI Common normals: Normal to inspection, nondistended, normoactive bowel sounds present, soft to palpation, non-tender and no hepatosplenomegaly Neuro Common normals: moves all extremities Sensorium/orientation: somnolent and fluctuating sensorium Speech: abnormal speech Gait (neuro): unable to assess gait Psych Thought process: confused Attention/concentration: attention grossly impaired and concentration grossly impaired Insight: poor Judgement: poor Internal Medicine - PN: Obj Da Labs Labs: Laboratory Results - last 24 hr 09/02/23 09/02/23 09/02/23 04:41 06:25 06:43 WBC 23.2 H RBC 4.17 L Hgb 11.4 L Hct 39.1 MCV 93.8 MCH 27.3 MCHC 29.2 L RDW 16.7 H Plt Count 491 H MPV 10.4 Seg Neuts % (Manual) 93.0 Lymphocytes % (Manual) 1.0 L Atypical Lymphs % (Man) 3.0 Monocytes % (Manual) 3.0 Eosinophils % (Manual) 0.0 L Basophils % (Manual) 0.0 L Neutrophils # (Manual) 21.57 H Lymphocytes # (Manual) 0.23 L Abs Atypical Lymphs Man 0.69 Monocytes # (Manual) 0.69 Eosinophils # (Manual) 0.00 Basophils # (Manual) 0.00 Chirag Cells 3+ Puncture Site R radial ABG pH 7.160 L* ABG pCO2 33.3 L ABG pO2 73.0 L ABG HCO3 11.9 L ABG O2 Saturation 90.5 ABG Base Excess -16.8 L Jeremy Test Positive O2 Liters/Min 3 Sodium 129 L Potassium 4.6 Chloride 95 L Carbon Dioxide 19.3 L Anion Gap 19.3 BUN 17.0 Creatinine 1.33 H Est GFR ( Amer) 46 L Est GFR (Non-Af Amer) 38 L BUN/Creatinine Ratio 12.8 Glucose 152 H Calcium 8.1 L Total Bilirubin 1.0 AST 418 H ALT 358 H Alkaline Phosphatase 84 Ammonia 33 H Total Protein 6.8 Albumin 3.2 L Globulin 3.6 Albumin/Globulin Ratio 0.9
--- NOTE | 2023-09-02 12:19 | PM.CSD1 ---
Advance Care Planning Advance Care Planning Discussion Advance care planning discussion summary: 78-year-old female with multiple comorbidities including atrial fibrillation, congestive heart failure, chronic obstructive pulmonary disease, peripheral vascular disease came in with acute respiratory failure with hypoxia secondary to pneumonia. Goals of care and treatment plan discussed in great detail with patient's family. Her daughter is her primary caregiver and patient lives with her. Patient was unable to participate in his discussion because of her mental status as she is confused/obtunded because of her current illness. Patient's medical prognosis and acute illness was explained in great detail. Pertinent questions and concerns addressed and answered. I had several discussions with family on three different occasions this morning and spent over twenty-five minutes explaining end-of-life care, comfort care measures, resuscitation status, hospice and palliative care. Family is agreeable to consult hospice and withdraw care. No mechanical intubation or lab testing or invasive procedures. Continue with current regimen/antibiotics for now. Patient's code status was changed to DNR comfort care Does patient have a terminal or chronic,progressive disease such that prognosis is less than 6 months: Yes Advance care planning discussion participants: patient surrogate decision maker
[2023-09-02] MEDS: SCOPOLAMINE 1 MG/3 DAYS TRANSDERM PATCH 1 PATCH TD (13:11)
--- NOTE | 2023-09-02 13:31 | SWNOTE1 ---
MARIOLA called and spoke to [facility] and they are coming at 5:30pm to meet with family. MARIOLA notified nursing. [facility] has spoke to family.
--- NOTE | 2023-09-13 14:47 | PM.DS1 ---
DS: Providers Provider Date of admission: 08/31/23 08:27 Primary care physician: Nettie Jha MD Admitting clinician: Shaikh Jordy Attending physician on admission: Shaikh Jordy Consults: 08/31/23 Consult to Dietitian Routine Reason for consultation: Weight loss, decreased appetite Has provider been notified: Yes 08/31/23 08:05 Consult to Pulmonology Routine Consulting Provider: Tahir Royal Reason for consultation: PNA/COPD exac/Ac on Ch resp fx Has provider been notified: No 08/31/23 17:29 Consult to Vascular Surgery Routine Consulting Provider: Swapnil Sauceda Reason for consultation: RLE ischemia Has provider been notified: Yes 09/01/23 Occupational Therapy Eval and Treat Routine Reason for consultation: weakness Physical Therapy Eval and Treat Routine Reason for consultation: weakness 09/02/23 11:37 Consult to Hospice Routine Reason for consultation: End of care life care Attending physician on discharge: Shaikh Jordy Discharging clinician: Shaikh Jordy Anticipated date of discharge: 09/02/23 DS: Diagnosis Discharge Diagnosis (1) Pneumonia: Qualifiers: Laterality: unspecified laterality Lung location: unspecified part of lung Pneumonia type: due to unspecified organism Qualified Code(s): J18.9 - Pneumonia, unspecified organism (2) ACS (acute coronary syndrome): (3) Metabolic acidosis: (4) Metabolic encephalopathy: (5) Sepsis: Qualifiers: Acute respiratory failure type: with hypoxia Sepsis acute organ dysfunction status: with acute organ dysfunction Sepsis type: sepsis due to unspecified organism Severe sepsis acute organ dysfunction type: acute respiratory failure Severe sepsis shock status: without septic shock Qualified Code(s): A41.9 - Sepsis, unspecified organism; R65.20 - Severe sepsis without septic shock; J96.01 - Acute respiratory failure with hypoxia (6) Acute and chronic respiratory failure with hypoxia: (7) Acute infective exacerbation of chronic obstructive airway disease: (8) Chronic a-fib: (9) HTN (hypertension): Qualifiers: Hypertension type: primary hypertension Qualified Code(s): I10 - Essential (primary) hypertension (10) Chronic respiratory failure with hypoxia: (11) PAD (peripheral artery disease): DS: Summary Hospital Course Hospital Course: 78-year-old female patient with a complicated past medical history including CHF, COPD with chronic respiratory failure on home O2, HTN, and 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 In ED, she was found to have acute on chronic resp failure and required high flow O2 to keep her Sats above 90%. Patient was treated for hospital acquired PNA with broad spectrum abx (vanc/zosyn), systemic steroids, inhaled bronchodilators. She was suspected to have mesenteric ischemia and/or critical limb ischemia as patient also reported right leg pain and nausea/generalized abdominal pain x 1 week that was ruled out by CT abd with aortic run off. This was also discussed with Vascular surgeon industrial relations representative. Patient iniitally showed signs of clinical improvement with resolution of her hypoxia but then became increasingly confused with increased work of breathing. Her plan of care was discussed with patient's family who decided to withdraw care and make patient comfortable. Her code status was changed to DNR/CC. Hospice was also consulted. Patient later in the evening comfortably. Time Spent with Patient Time attestation: Total time spent providing and/or coordinating discharge services: Exam Constitutional Vital Signs, click to edit/add: Last Vital Signs Temp 98.8 F 09/02/23 08:00 Pulse 101 H 09/02/23 19:00 Resp 13 09/02/23 19:00 BP 65/51 L 09/02/23 19:00 Pulse Ox 49 L 09/02/23 08:00 O2 Del Method Vapotherm 09/02/23 08:00 O2 Flow Rate 40 09/02/23 08:00 FiO2 100 09/02/23 08:00 Discharge Plan Discharge Disposition: Discharge Date/Time: 09/02/23 19:25 Date/Time: 09/02/23 19:25
== END 2023-09-02 19:25 | disposition expired | DRG 871 ==
LOC: ER 07:34 → ICU 08:30 → MS 09-01 17:58 → ICU 09-02 06:33
PROVIDERS: Emergency Medicine; Nurse Practitioner; Admitting Provider Internal Medicine; Emergency Provider Internal Medicine; PCP Family Medicine; Visit Provider Internal Medicine
DX: A41.9 Sepsis, unspecified organism (principal); G93.41 Metabolic encephalopathy; I21.4 Non-ST elevation (NSTEMI) myocardial infarction; J18.9 Pneumonia, unspecified organism; J96.21 Acute and chronic respiratory failure with hypoxia; I50.32 Chronic diastolic (congestive) heart failure; I48.20 Chronic atrial fibrillation, unspecified; J44.0 Chronic obstructive pulmonary disease with (acute) lower respiratory infection; J44.1 Chronic obstructive pulmonary disease with (acute) exacerbation; N17.9 Acute kidney failure, unspecified; Z66 Do not resuscitate; Z51.5 Encounter for palliative care; I11.0 Hypertensive heart disease with heart failure; R65.20 Severe sepsis without septic shock; J43.2 Centrilobular emphysema; E86.0 Dehydration; Y95 Nosocomial condition; K59.00 Constipation, unspecified; R11.2 Nausea with vomiting, unspecified; E78.5 Hyperlipidemia, unspecified; N18.9 Chronic kidney disease, unspecified; I70.0 Atherosclerosis of aorta; I73.9 Peripheral vascular disease, unspecified; T87.89 Other complications of amputation stump; M79.652 Pain in left thigh; G89.29 Other chronic pain; Z79.01 Long term (current) use of anticoagulants; Z79.899 Other long term (current) drug therapy; Z99.81 Dependence on supplemental oxygen; Z86.16 Personal history of COVID-19; Z88.1 Allergy status to other antibiotic agents; Z87.891 Personal history of nicotine dependence; Z79.51 Long term (current) use of inhaled steroids; Z79.02 Long term (current) use of antithrombotics/antiplatelets; Z87.01 Personal history of pneumonia (recurrent)
CPT/HCPCS: 0202U; 36415; 36600; 71045; 71250; 74022; 75635; 80048; 80053; 82140; 82550; 82553; 82800; 82805; 83605; 83874; 83880; 84484; 85007; 85025; 85027; 87040; 93005; 93971; 94640; 94667; 94668; 94761; 94799; 96361; 96365; 96366; 96367; 96368; 96375; 96376; 97161; 97165; 97530; 99285; J2020; J2919; Q9967